=== PATIENT | male | born 1935 | race Caucasian/White ===

== ENCOUNTER 2021-08-27 18:31 | Inpatient (IN) ==
[2021-08-27 18:59] LABS: Base Excess VBG -9.7 mEq/L; Oxygen Saturation VBG 63.3 %; pH VBG 7.31 (7.36-7.41)
[2021-08-27 19:03] LABS: Basophils # (auto) 0.01 K/uL (0-0.2); Basophils % (auto) 0.1 %; Eosinophils # (auto) 0.92 K/uL (0-0.5); Eosinophils % (auto) 12.9 %; Hematocrit (blood only) 33.7 % (42-52); Hemoglobin 11.2 g/dL (14.0-18.0); Immature Granulocytes # (auto) 0.03 K/uL (0.00-0.02); Immature Granulocytes % (auto) 0.4 %; Lymphocytes # (auto) 0.47 K/uL (1.2-3.4); Lymphocytes % (auto) 6.6 %; Mean Corpuscular Hemoglobin 28.8 pg (25-34); Mean Corpuscular Hgb Conc 33.2 g/dL (32-36); Mean Corpuscular Volume 86.6 fL (80-100); Mean Platelet Volume 10.6 fL (7.4-10.4); Monocytes # (auto) 0.57 K/uL (0.11-0.59); Neutrophils # (auto) 5.13 K/uL (1.4-6.5); Nucleated RBC # (auto) 0.03 K/uL (0-0); Nucleated RBC % (auto) 0.4 %; Platelet Count 293 K/uL (130-400); RDW Coefficient of Variation 16.6 % (11.5-14.5); RDW Standard Deviation 51.9 fL (36.4-46.3); Red Blood Count 3.89 M/uL (4.7-6.1); White Blood Count 7.13 K/uL (4.8-10.8)
[2021-08-27 19:06] LABS: INR 1.1 (0.9-1.1); Partial Thromboplastin Ratio 1.2; Prothrombin Time 11.4 Seconds (9.0-12.0)
--- NOTE | 2021-08-27 19:22 | XRay Report ---
SINGLE VIEW CHEST CLINICAL HISTORY: Dyspnea. FINDINGS: An AP, portable, upright chest radiograph is obtained. No prior studies are available for c omparison at the time of dictation. The examination is degraded by portable technique and atypical lo rdotic positioning. The patient is status post midline sternotomy. The heart is enlarged noting ather osclerotic calcification of the thoracic aorta. A large right perihilar density is nonspecific. The p ulmonary vasculature is noncongested. Nonspecific interstitial thickening is likely chronic. There is bibasilar scarring/atelectasis. No airspace consolidation or large pleural effusion is identified. N o pneumothorax is seen. The skeletal structures are osteopenic. The bony thorax is grossly intact. IMPRESSION: 1. Cardiomegaly with no acute cardiopulmonary abnormality identified. 2. A large right perihilar density is nonspecific and may represent enlarged pulmonary artery. A cont rast-enhanced CT of the chest is recommended to exclude underlying lymphadenopathy or mass lesion. ACT 112: Negative or not required by law. Electronically signed by: Paco Pardo M.D. 08/27/2021 7:20 PM
[2021-08-27 19:24] LABS: Albumin Globulin Ratio 1.4 (0.9-2); Albumin Level 3.7 gm/dl (3.4-5.0); BUN Creatinine Ratio 32.7 (10-20); Bilirubin,Total 0.4 mg/dl (0.2-1.0); Calcium 8.4 mg/dl (8.5-10.1); Creatinine Clr Calc Pharmacy 19.2 ml/min; Est GFR (African American) 23.3 ml/min; Est GFR (Non-African American) 20.1 ml/min; Globulin 2.6 gm/dl (2.5-4.0); Magnesium 3.4 mg/dl (1.7-2.4); Potassium 5.2 mmol/L (3.5-5.1); Total Protein 6.3 gm/dl (6.0-8.3)
--- NOTE | 2021-08-27 19:38 | Emergency Department Note ---
History of Present Illness General Chief complaint: Carbon Monoxide Exposure Stated complaint: SOB, CO POISONING Time Seen by Provider: 08/27/21 18:37 Source: patient and EMS Mode of arrival: EMS Limitations: no limitations History of Present Illness Provider complaint: Shortness of breath This is an 86-year-old male who presents emergency department via EMS complaining of shortness of breath. Patient states he is felt weak and dizzy over the last 2 weeks and had issues with his prostate. Patient states he did have recent prostate surgery. He states today he felt short of breath compared to prior although does admit to prior episodes of shortness of breath. Denies any prior history of tobacco abuse, asthma, or COPD. States he does not wear home oxygen or use any breathing treatments. Patient denies fevers, chills, chest pain, other URI symptoms. He denies any known sick contacts. Patient states he does feel better with oxygen is applied by EMS. EMS relays when they arrived, fire personnel had informed them that there was elevated carbon monoxide in the home. Patient states he does have a coal furnace to heat the home and is still using his seat. He states his car monoxide detector did go off today and he was having a difficult time changing the batteries. Patient denies any coming headache or hallucinations. EMS placed the patient on CPAP prehospital and patient reports feeling markedly improved. Pt seen during a time of high acuity and national emergency pandemic while wearing PPE. Home Medications Medication Instructions Recorded Confirmed Type ascorbic acid (vitamin C) 1,000 mg 1 g PO DAILY #120 tab 11/24/20 08/27/21 Rx tablet aspirin 81 mg tablet,delayed 81 mg PO DAILY #30 tab 11/24/20 08/27/21 Rx release bumetanide 1 mg tablet 1 mg PO DAILY #30 tab 11/24/20 08/27/21 Rx carvedilol 12.5 mg tablet 12.5 mg PO BID #60 tab 11/24/20 08/27/21 Rx cholecalciferol (vitamin D3) 10 10 mcg PO DAILY #30 cap 11/24/20 08/27/21 Rx mcg (400 unit) capsule dutasteride 0.5 mg capsule 0.5 mg PO DAILY #30 cap 11/24/20 08/27/21 Rx ezetimibe 10 mg tablet 10 mg PO DAILY #30 tab 11/24/20 08/27/21 Rx fluocinonide 0.05 % topical cream 1 applic TOPICAL BID PRN #60 g 11/24/20 08/27/21 Rx hydralazine 100 mg tablet 100 mg PO TID #60 tab 11/24/20 08/27/21 Rx loratadine 10 mg tablet (Claritin) 10 mg PO DAILY PRN #90 tab 11/24/20 08/27/21 Rx losartan 50 mg tablet 50 mg PO BID #60 tab 11/24/20 08/27/21 Rx magnesium oxide 400 mg PO DAILY #30 cap 11/24/20 08/27/21 Rx nifedipine 60 mg tablet,extended 120 mg PO DAILY #30 tab 11/24/20 08/27/21 Rx release 24 hr (Procardia XL) nitroglycerin 0.4 mg sublingual 0.4 mg SUBLINGUAL Q5M PRN #1 tab 11/24/20 08/27/21 Rx tablet (Nitrostat) omega-3 fatty acids 1,000 mg 2,000 mg PO BID #60 cap 11/24/20 08/27/21 Rx capsule (Fish Oil Concentrate) rivaroxaban 2.5 mg tablet (Xarelto) 2.5 mg PO BID #60 tab 11/24/20 08/27/21 Rx rosuvastatin 5 mg tablet 5 mg PO DAILY #30 tab 11/24/20 08/27/21 Rx spironolactone 50 mg tablet 50 mg PO DAILY #30 tab 11/24/20 08/27/21 Rx tamsulosin 0.4 mg capsule 0.8 mg PO DAILY #30 cap 11/24/20 08/27/21 Rx triamcinolone acetonide 0.1 % 1 applic TOPICAL TID PRN #15 g 11/24/20 08/27/21 Rx topical cream vitamin B12 500 mcg-folic acid 400 1 tab PO DAILY #30 tab 11/24/20 08/27/21 Rx mcg tablet docusate sodium 100 mg capsule 100 mg PO BID 12/06/20 08/27/21 History (Colace) zinc 50 mg tablet 50 mg PO DAILY 12/06/20 08/27/21 History cyclobenzaprine 5 mg tablet 5 mg PO HS PRN 08/27/21 08/27/21 History nitroglycerin 0.4 mg/hr 1 patch TRANSDERMAL QAM MDD remove 08/27/21 08/27/21 History transdermal 24 hour patch in pm (Nitro-Dur) Allergies Allergy/AdvReac Type Severity Reaction Status Date / Time clonidine Allergy Unknown Verified 08/27/21 19:49 doxazosin [From Cardura] Allergy HIVES and Verified 08/27/21 19:49 ITCHING furosemide [From Lasix] Allergy HIVES and Verified 08/27/21 19:49 ITCHING hydrochlorothiazide Allergy ITCHING Verified 08/27/21 19:49 ketorolac [From Toradol] Allergy ACUTE Verified 08/27/21 19:49 KIDNEY INJURY potassium chloride Allergy HIVES and Verified 08/27/21 19:49 ITCHING lisinopril AdvReac COUGH Verified 08/27/21 19:49 Past Med/Surg History Medical History Carotid stenosis Diastolic CHF, chronic Hearing loss Hyperlipidemia Nephrolithiasis Osteoarthritis PAD (peripheral artery disease) Surgical History H/O endarterectomy H/O lithotripsy Hx of CABG S/P colonoscopic polypectomy S/P total knee arthroplasty left Family History Denies family history of Diabetes Kidney disease Social History Smoking Status: Never smoker Hx Alcohol Use: Yes (x15 years ago) Hx Substance Use: No Preferred Language: Togolese Communication Ability: Effective Hearing Ability: Hard of Hearing Xerox Machine Operator Required: No Beliefs That Will Affect Care: None Current Living Situation: Alone current occupational status: retired Other Information That Helps Us Care for You: No Feels Safe at Home: Yes Safety Concerns: Feels Safe At This Time Assistive Devices: Walker Review of Systems A total of 10 systems reviewed and were otherwise negative All systems reviewed & are unremarkable except as noted in HPI & below Physical Exam Vital Signs Vital Signs - 24 hr 08/27/21 18:15 08/27/21 18:38 08/27/21 19:43 Temperature 36.8 C Temperature Source Axillary Pulse Rate 66 Pulse Rate [Apical] 60 63 Respiratory Rate 18 22 20 Respiratory Effort / Characteristics Non-Labored Respiratory Depth Normal Blood Pressure 172/74 H Blood Pressure [Right Arm] 129/70 131/68 Blood Pressure Mean 106 Blood Pressure Mean [Right Arm] 89 89 Blood Pressure Position Sitting Blood Pressure Position [Right Arm] Pulse Oximetry 98 100 100 Oxygen Delivery Method Room Air BiPAP Non-rebreather Oxygen Flow Rate 15 Sepsis Recent Fever Within 48 Hours No Sepsis New/Unexplained Change in Mental Status No Sepsis Action Taken by Nursing No Action Required Oxygen Flow Rate - Titration Pulse Oximetry Post Tiitration 08/27/21 20:29 08/27/21 20:56 08/27/21 21:40 Temperature Temperature Source Pulse Rate Pulse Rate [Apical] 57 L 59 L Respiratory Rate 18 Respiratory Effort / Characteristics Respiratory Depth Blood Pressure Blood Pressure [Right Arm] 144/65 H 131/50 L Blood Pressure Mean Blood Pressure Mean [Right Arm] 91 77 Blood Pressure Position Blood Pressure Position [Right Arm] Sitting Sitting Pulse Oximetry 99 99 Oxygen Delivery Method Nasal Cannula Nasal Cannula Nasal Cannula Oxygen Flow Rate 8 4 4 Sepsis Recent Fever Within 48 Hours Sepsis New/Unexplained Change in Mental Status Sepsis Action Taken by Nursing Oxygen Flow Rate - Titration 4 Pulse Oximetry Post Tiitration 100 08/27/21 22:57 Temperature Temperature Source Pulse Rate Pulse Rate [Apical] 57 L Respiratory Rate 20 Respiratory Effort / Characteristics Respiratory Depth Blood Pressure Blood Pressure [Right Arm] 128/54 L Blood Pressure Mean Blood Pressure Mean [Right Arm] 78 Blood Pressure Position Blood Pressure Position [Right Arm] Pulse Oximetry 99 Oxygen Delivery Method Nasal Cannula Oxygen Flow Rate 2 Sepsis Recent Fever Within 48 Hours Sepsis New/Unexplained Change in Mental Status Sepsis Action Taken by Nursing Oxygen Flow Rate - Titration Pulse Oximetry Post Tiitration GENERAL: alert, well appearing, well nourished, no distress, non-toxic EYE EXAM: normal conjunctiva, PERRL and EOM's grossly intact OROPHARYNX: no exudate, no erythema, lips, buccal mucosa, and tongue normal and mucous membranes are moist NECK: supple, no nuchal rigidity, no adenopathy, non-tender LUNGS: Clear to auscultation. Normal chest wall mechanics, no w/r/r HEART: no murmurs, S1 normal and S2 normal ABDOMEN: abdomen soft, non-tender, normo-active bowel sounds, no masses, no rebound or guarding. BACK: Back is symmetrical on inspection and there is no deformity, no midline tenderness, no CVA tenderness. SKIN: no rashes and no bruising UPPER EXTREMITIES: upper extremities are grossly normal. FROM, nml pulses b/l. LOWER EXTREMITIES: 1+ b/l pitting edema. FROM, nml pulses b/l. NEURO EXAM: Normal sensorium, cranial nerves II-XII grossly intact, normal speech, no gross weakness of arms, no gross weakness of legs. Gross sensation intact. Course Course 1934: Discussed with Faith pt's niece. [phone]. She states patient had prostate surgery at [facility] 2 weeks ago. He had 2 catheters in the intervening days the last one was removed this past Saturday. He was also having some left-sided shoulder pain and was referred to orthopedics and on Saturday he underwent a trigger point injection and was referred to physical therapy. Patient sees cardiology through [facility] and his PCP is Panchito Anguiano PA-C. She states he has had decreased oral intake over the last several days and seems slightly more sluggish. He states he has complained of shortness of breath and that was his original complaint today for which she called family who called 911. He states patient has history of chronic kidney disease stage III, acute on chronic CHF, prior CABG and coronary artery disease, hypertension, hyperlipidemia, peripheral vascular disease, anemia, gastritis, or osteoarthri tis. She does not know of any advanced directive or living will. She states her did go to his house to evaluate the report of possible elevated carbon monoxide and check his furnace and ventilation. 2015: Pt updated on bedside. States he has been intermittently SOB for the last 2 weeks. Administered Medications Acetaminophen (Acetaminophen 325 Mg Tab) 650 mg PO Q4H PRN PRN Reason: Pain or Fever Stop: 09/27/21 01:34 Last Admin: 08/29/21 01:47 Dose: 650 mg Documented by: [id number] Admin: 08/28/21 09:17 Dose: 650 mg Documented by: [id number] Admin: 08/28/21 02:39 Dose: 650 mg Documented by: [id number] Ascorbic Acid (Ascorbic Acid 500 Mg Tab) 1,000 mg PO DAILY KAREN Stop: 09/27/21 08:59 Last Admin: 08/29/21 08:41 Dose: 1,000 mg Documented by: [id number] Admin: 08/28/21 08:50 Dose: 1,000 mg Documented by: [id number] Aspirin (Aspirin 81 Mg Ectab) 81 mg PO DAILY KAREN Stop: 09/27/21 08:59 Last Admin: 08/29/21 08:43 Dose: 81 mg Documented by: [id number] Admin: 08/28/21 08:49 Dose: 81 mg Documented by: [id number] Carvedilol (Carvedilol 12.5 Mg Tab) 12.5 mg PO BID KAREN Stop: 09/27/21 08:59 Last Admin: 08/29/21 08:52 Dose: 12.5 mg Documented by: [id number] Admin: 08/28/21 20:47 Dose: Not Given Documented by: [id number] Admin: 08/28/21 08:49 Dose: 12.5 mg Documented by: [id number] Cyanocobalamin (Cyanocobalamin (B-12) 500 Mcg Tablet) 500 mcg PO DAILY KAREN Stop: 09/27/21 08:59 Last Admin: 08/29/21 08:44 Dose: 500 mcg Documented by: [id number] Admin: 08/28/21 08:56 Dose: 500 mcg Documented by: [id number] Cyclobenzaprine HCl (Cyclobenzaprine Hcl 5 Mg Tab) 5 mg PO HS PRN PRN Reason: back or shoulder pain Stop: 09/27/21 01:34 Last Admin: 08/28/21 04:29 Dose: 5 mg Documented by: [id number] Docusate Sodium (Docusate Sodium 100 Mg Cap) 100 mg PO BID [facility] Stop: 09/27/21 08:59 Last Admin: 08/29/21 08:39 Dose: 100 mg Documented by: [id number] Admin: 08/28/21 20:46 Dose: 100 mg Documented by: [id number] Admin: 08/28/21 08:50 Dose: 100 mg Documented by: [id number] Ezetimibe (Ezetimibe 10 Mg Tablet) 10 mg PO DAILY [facility] Stop: 09/27/21 08:59 Last Admin: 08/29/21 08:44 Dose: 10 mg Documented by: [id number] Admin: 08/28/21 08:50 Dose: 10 mg Documented by: [id number] Folic Acid (Folic Acid 400 Mcg Tab) 400 mcg PO QAM [facility] Stop: 09/27/21 08:59 Last Admin: 08/29/21 08:43 Dose: 400 mcg Documented by: [id number] Admin: 08/28/21 08:51 Dose: 400 mcg Documented by: [id number] Miscellaneous (Dutasteride 0.5 Mg - Order Awaiting Action) 1 ea N/A QS [facility] Stop: 09/27/21 07:59 Last Admin: 08/29/21 16:41 Dose: Not Given Documented by: [id number] Admin: 08/29/21 08:50 Dose: Not Given Documented by: [id number] Admin: 08/29/21 02:44 Dose: Not Given Documented by: [id number] Admin: 08/28/21 15:35 Dose: Not Given Documented by: [id number] Admin: 08/28/21 08:51 Dose: Not Given Documented by: [id number] Miscellaneous (Remove Nitro-Dur Patch) 1 ea N/A DAILY@2100 [facility] Stop: 09/27/21 20:59 Last Admin: 08/28/21 20:46 Dose: 1 ea Documented by: [id number] Nifedipine (Nifedipine Extended Rel 30 Mg Tabcr) 120 mg PO DAILY [facility] Stop: 09/27/21 08:59 Last Admin: 08/29/21 08:52 Dose: 120 mg Documented by: [id number] Admin: 08/28/21 08:46 Dose: 120 mg Documented by: [id number] Nitroglycerin (Nitroglycerin 0.4 Mg/Hr Patch) 1 patch TD QAM [facility] Stop: 09/27/21 08:59 Last Admin: 08/29/21 08:52 Dose: 1 patch Documented by: [id number] Admin: 08/28/21 08:57 Dose: 1 patch Documented by: [id number] Rosuvastatin Calcium (Rosuvastatin Calcium 5 Mg Tab) 5 mg PO DAILY KAREN Stop: 09/27/21 08:59 Last Admin: 08/29/21 08:40 Dose: 5 mg Documented by: [id number] Admin: 08/28/21 08:48 Dose: 5 mg Documented by: [id number] Sodium Bicarbonate (Sodium Bicarbonate 650 Mg Tab) 1,300 mg PO BID KAREN Stop: 09/27/21 09:59 Last Admin: 08/29/21 08:40 Dose: 1,300 mg Documented by: [id number] Admin: 08/28/21 20:45 Dose: 1,300 mg Documented by: [id number] Admin: 08/28/21 10:44 Dose: 1,300 mg Documented by: [id number] Tamsulosin HCl (Tamsulosin Hcl 0.4 Mg Cap) 0.8 mg PO DAILY [facility] Stop: 09/27/21 08:59 Last Admin: 08/29/21 08:44 Dose: 0.8 mg Documented by: [id number] Admin: 08/28/21 08:53 Dose: 0.8 mg Documented by: [id number] Vitamin D (Cholecalciferol 400 Units 10 Mcg Tab) 400 units PO DAILY [facility] Stop: 09/27/21 08:59 Last Admin: 08/29/21 08:42 Dose: 400 units Documented by: [id number] Admin: 08/28/21 08:50 Dose: 400 units Documented by: [id number] Zinc Sulfate (Zinc Sulfate 220 Mg Capsule) 220 mg PO DAILY [facility] Stop: 09/27/21 08:59 Last Admin: 08/29/21 08:41 Dose: 220 mg Documented by: [id number] Admin: 08/28/21 08:53 Dose: 220 mg Documented by: [id number] Discontinued Medications Heparin Sodium/Dextrose (Heparin Iv Adult Wt-Based Standard *No* Bolus Protocol) 1 ea IV Q30M [facility]; Protocol Stop: 09/28/21 10:54 Last Admin: 08/29/21 14:32 Dose: Not Given Documented by: [id number] Admin: 08/29/21 14:31 Dose: Not Given Documented by: [id number] Hydralazine HCl (Hydralazine Tab 50 Mg Tab) 100 mg PO TID [facility] Stop: 09/27/21 08:59 Last Admin: 08/29/21 14:32 Dose: Not Given Documented by: [id number] Admin: 08/29/21 08:53 Dose: 100 mg Documented by: [id number] Admin: 08/28/21 20:46 Dose: 100 mg Documented by: [id number] Admin: 08/28/21 14:01 Dose: 100 mg Documented by: [id number] Admin: 08/28/21 08:56 Dose: 100 mg Documented by: [id number] Sodium Chloride (Nss 1000ml) 1,000 mls @ 75 mls/hr IV .[id number] [facility] Stop: 09/27/21 01:34 Last Infusion: 08/28/21 10:35 Dose: 0 mls/hr Documented by: [id number] Infusion: 08/28/21 10:35 Dose: 0 mls/hr Documented by: [id number] Admin: 08/28/21 02:39 Dose: 75 mls/hr Documented by: [id number] Bumetanide 1 mg/ Syringe 4 mls @ 4 mls/min IV ONE ONE Stop: 08/28/21 15:31 Last Admin: 08/28/21 15:33 Dose: 4 mls/min Documented by: [id number] Bumetanide 1 mg/ Syringe 4 mls @ 4 mls/min IV ONE ONE Stop: 08/29/21 10:01 Last Admin: 08/29/21 10:24 Dose: 4 mls/min Documented by: [id number] Rivaroxaban (Rivaroxaban 2.5 Mg Tab) 2.5 mg PO BID KAREN Stop: 09/27/21 08:59 Last Admin: 08/29/21 08:40 Dose: 2.5 mg Documented by: [id number] Admin: 08/28/21 20:46 Dose: 2.5 mg Documented by: [id number] Admin: 08/28/21 08:54 Dose: 2.5 mg Documented by: [id number] Medical Decision Making Differential Diagnosis Differential diagnoses includes but is not limited to pneumonia, bronchitis, COPD/Asthma exacerbation, pneumothorax, pulmonary embolism, congestive heart failure, acute coronary syndrome Medical Records Attestation: I reviewed the patient's medical records. Home Medications Current Medication List: was personally reviewed by me Laboratory Data Attestation: I reviewed the patient's lab results. Result diagrams: 08/29/21 07:26 08/29/21 07:26 Lab Results 08/27/21 08/27/21 08/27/21 Range/Units 18:42 18:42 18:42 WBC (4.8-10.8) K/uL RBC (4.7-6.1) M/uL Hgb (14.0-18.0) g/dL Hct (42-52) % MCV (80-100) fL MCH (25-34) pg MCHC (32-36) g/dL RDW Std Deviation (36.4-46.3) fL RDW Coeff of Dmitriy (11.5-14.5) % Plt Count (130-400) K/uL MPV (7.4-10.4) fL Immature Gran % (Auto) % Neut % (Auto) % Lymph % (Auto) % [place] % (Auto) % Eos % (Auto) % Baso % (Auto) % Neut # (Auto) (1.4-6.5) K/uL Lymph # (Auto) (1.2-3.4) K/uL [place] # (Auto) (0.11-0.59) K/uL Eos # (Auto) (0-0.5) K/uL Baso # (Auto) (0-0.2) K/uL Immature Gran # (Auto) (0.00-0.02) K/uL Absolute Nucleated RBC (0-0) K/uL Nucleated RBC % (auto) % PT 11.4 (9.0-12.0) Seconds INR 1.1 (0.9-1.1) APTT 33.0 H (21.0-31.0) Seconds PTT Ratio 1.2 ABG pH (7.35-7.45) ABG pCO2 (35-46) mmHg ABG pO2 (80-95) mmHg ABG HCO3 (19-24) mmol/L ABG O2 Saturation (90-95) % ABG Base Excess (-9-1.8) mEq/L Spenser Test (Pos) VBG pH (7.36-7.41) VBG pCO2 (38-50) mmHg VBG pO2 mmHg VBG HCO3 mmol/L VBG O2 Saturation % VBG Base Excess mEq/L Carboxyhemoglobin % THgb Barometric Pressure mm/Hg Oxygen Given Sodium 129 L (136-145) mmol/L Potassium 5.2 H (3.5-5.1) mmol/L Chloride 102 (98-107) mmol/L Carbon Dioxide 14 L (21-32) mmol/L Anion Gap 13 H (3-11) BUN 90 H (6-23) mg/dl Creatinine 2.75 H (0.6-1.4) mg/dl Est Cr Clr Drug Dosing 19.2 ml/min Est GFR ( Amer) 23.3 ml/min Est GFR (Non-Af Amer) 20.1 ml/min BUN/Creatinine Ratio 32.7 H (10-20) Glucose 113 H (70-99(Fasting)) mg/dl Calcium 8.4 L (8.5-10.1) mg/dl Magnesium 3.4 H (1.7-2.4) mg/dl Total Bilirubin 0.4 (0.2-1.0) mg/dl AST 35 (13-39) U/L ALT 141 H (7-52) U/L Alkaline Phosphatase 56 (34-104) U/L Troponin I High Sens 2093.7 H* (0-20) pg/ml Total Protein 6.3 (6.0-8.3) gm/dl Albumin 3.7 (3.4-5.0) gm/dl Globulin 2.6 (2.5-4.0) gm/dl Albumin/Globulin Ratio 1.4 (0.9-2) Urine Color Urine Appearance (Clear) Urine pH (4.5-7.5) Ur Specific [place] (1.000-1.030) Urine Protein (Negative) Urine Glucose (UA) (Negative) Urine Ketones (Negative) Urine Blood (Negative) Urine Nitrite (Negative) Urine Bilirubin (Negative) Urine Urobilinogen (Negative) Ur Leukocyte Esterase (Negative) Urine WBC (Auto) (0-5) /hpf Urine RBC (Auto) (0-4) /hpf U Hyaline Cast (Auto) (0-5) /lpf U Epithel Cells (Auto) (0-5) /lpf Urine Bacteria (Auto) (Negative) SARS-CoV-2 (PCR) (Negative) Influenza Type A (PCR) (Neg) Influenza Type B (PCR) (Neg) RSV (RT-PCR) (Neg) 08/27/21 08/27/21 08/27/21 Range/Units 18:42 18:42 18:45 WBC 7.13 (4.8-10.8) K/uL RBC 3.89 L (4.7-6.1) M/uL Hgb 11.2 L (14.0-18.0) g/dL Hct 33.7 L (42-52) % MCV 86.6 (80-100) fL MCH 28.8 (25-34) pg MCHC 33.2 (32-36) g/dL RDW Std Deviation 51.9 H (36.4-46.3) fL RDW Coeff of Dmitriy 16.6 H (11.5-14.5) % Plt Count 293 (130-400) K/uL MPV 10.6 H (7.4-10.4) fL Immature Gran % (Auto) 0.4 % Neut % (Auto) 72.0 % Lymph % (Auto) 6.6 % [place] % (Auto) 8.0 % Eos % (Auto) 12.9 % Baso % (Auto) 0.1 % Neut # (Auto) 5.13 (1.4-6.5) K/uL Lymph # (Auto) 0.47 L (1.2-3.4) K/uL [place] # (Auto) 0.57 (0.11-0.59) K/uL Eos # (Auto) 0.92 H (0-0.5) K/uL Baso # (Auto) 0.01 (0-0.2) K/uL Immature Gran # (Auto) 0.03 H (0.00-0.02) K/uL Absolute Nucleated RBC 0.03 H (0-0) K/uL Nucleated RBC % (auto) 0.4 % PT (9.0-12.0) Seconds INR (0.9-1.1) APTT (21.0-31.0) Seconds PTT Ratio ABG pH (7.35-7.45) ABG pCO2 (35-46) mmHg ABG pO2 (80-95) mmHg ABG HCO3 (19-24) mmol/L ABG O2 Saturation (90-95) % ABG Base Excess (-9-1.8) mEq/L Spenser Test (Pos) VBG pH 7.31 L (7.36-7.41) VBG pCO2 31 L (38-50) mmHg VBG pO2 36 mmHg VBG HCO3 15 mmol/L VBG O2 Saturation 63.3 % VBG Base Excess -9.7 mEq/L Carboxyhemoglobin 2.9 % THgb Barometric Pressure 731.2 mm/Hg Oxygen Given Sodium (136-145) mmol/L Potassium (3.5-5.1) mmol/L Chloride (98-107) mmol/L Carbon Dioxide (21-32) mmol/L Anion Gap (3-11) BUN (6-23) mg/dl Creatinine (0.6-1.4) mg/dl Est Cr Clr Drug Dosing ml/min Est GFR ( Amer) ml/min Est GFR (Non-Af Amer) ml/min BUN/Creatinine Ratio (10-20) Glucose (70-99(Fasting)) mg/dl Calcium (8.5-10.1) mg/dl Magnesium (1.7-2.4) mg/dl Total Bilirubin (0.2-1.0) mg/dl AST (13-39) U/L ALT (7-52) U/L Alkaline Phosphatase (34-104) U/L Troponin I High Sens (0-20) pg/ml Total Protein (6.0-8.3) gm/dl Albumin (3.4-5.0) gm/dl Globulin (2.5-4.0) gm/dl Albumin/Globulin Ratio (0.9-2) Urine Color Urine Appearance (Clear) Urine pH (4.5-7.5) Ur Specific [place] (1.000-1.030) Urine Protein (Negative) Urine Glucose (UA) (Negative) Urine Ketones (Negative) Urine Blood (Negative) Urine Nitrite (Negative) Urine Bilirubin (Negative) Urine Urobilinogen (Negative) Ur Leukocyte Esterase (Negative) Urine WBC (Auto) (0-5) /hpf Urine RBC (Auto) (0-4) /hpf U Hyaline Cast (Auto) (0-5) /lpf U Epithel Cells (Auto) (0-5) /lpf Urine Bacteria (Auto) (Negative) SARS-CoV-2 (PCR) (Negative) Influenza Type A (PCR) (Neg) Influenza Type B (PCR) (Neg) RSV (RT-PCR) (Neg) 08/27/21 08/27/21 08/27/21 Range/Units 20:10 21:48 21:53 WBC (4.8-10.8) K/uL RBC (4.7-6.1) M/uL Hgb (14.0-18.0) g/dL Hct (42-52) % MCV (80-100) fL MCH (25-34) pg MCHC (32-36) g/dL RDW Std Deviation (36.4-46.3) fL RDW Coeff of Dmitriy (11.5-14.5) % Plt Count (130-400) K/uL MPV (7.4-10.4) fL Immature Gran % (Auto) % Neut % (Auto) % Lymph % (Auto) % [place] % (Auto) % Eos % (Auto) % Baso % (Auto) % Neut # (Auto) (1.4-6.5) K/uL Lymph # (Auto) (1.2-3.4) K/uL [place] # (Auto) (0.11-0.59) K/uL Eos # (Auto) (0-0.5) K/uL Baso # (Auto) (0-0.2) K/uL Immature Gran # (Auto) (0.00-0.02) K/uL Absolute Nucleated RBC (0-0) K/uL Nucleated RBC % (auto) % PT (9.0-12.0) Seconds INR (0.9-1.1) APTT (21.0-31.0) Seconds PTT Ratio ABG pH 7.36 (7.35-7.45) ABG pCO2 27 L (35-46) mmHg ABG pO2 277 H (80-95) mmHg ABG HCO3 15 L (19-24) mmol/L ABG O2 Saturation 99.8 H (90-95) % ABG Base Excess -9.2 L (-9-1.8) mEq/L Spenser Test Pos (Pos) VBG pH (7.36-7.41) VBG pCO2 (38-50) mmHg VBG pO2 mmHg VBG HCO3 mmol/L VBG O2 Saturation % VBG Base Excess mEq/L Carboxyhemoglobin % THgb Barometric Pressure 731.2 mm/Hg Oxygen Given 15 Sodium (136-145) mmol/L Potassium (3.5-5.1) mmol/L Chloride (98-107) mmol/L Carbon Dioxide (21-32) mmol/L Anion Gap (3-11) BUN (6-23) mg/dl Creatinine (0.6-1.4) mg/dl Est Cr Clr Drug Dosing ml/min Est GFR ( Amer) ml/min Est GFR (Non-Af Amer) ml/min BUN/Creatinine Ratio (10-20) Glucose (70-99(Fasting)) mg/dl Calcium (8.5-10.1) mg/dl Magnesium (1.7-2.4) mg/dl Total Bilirubin (0.2-1.0) mg/dl AST (13-39) U/L ALT (7-52) U/L Alkaline Phosphatase (34-104) U/L Troponin I High Sens (0-20) pg/ml Total Protein (6.0-8.3) gm/dl Albumin (3.4-5.0) gm/dl Globulin (2.5-4.0) gm/dl Albumin/Globulin Ratio (0.9-2) Urine Color Yellow Urine Appearance Clear (Clear) Urine pH 5.0 (4.5-7.5) Ur Specific [place] 1.018 (1.000-1.030) Urine Protein Negative (Negative) Urine Glucose (UA) Negative (Negative) Urine Ketones Negative (Negative) Urine Blood 1+ H (Negative) Urine Nitrite Negative (Negative) Urine Bilirubin Negative (Negative) Urine Urobilinogen Negative (Negative) Ur Leukocyte Esterase Negative (Negative) Urine WBC (Auto) 0 (0-5) /hpf Urine RBC (Auto) >30 H (0-4) /hpf U Hyaline Cast (Auto) 1-5 (0-5) /lpf U Epithel Cells (Auto) 0-5 (0-5) /lpf Urine Bacteria (Auto) Negative (Negative) SARS-CoV-2 (PCR) NEGATIVE (Negative) Influenza Type A (PCR) Negative (Neg) Influenza Type B (PCR) Negative (Neg) RSV (RT-PCR) Negative (Neg) Imaging Data Radiologist's Impression: Chest X-Ray 08/27/21 18:36 SINGLE VIEW CHEST CLINICAL HISTORY: Dyspnea. FINDINGS: An AP, portable, upright chest radiograph is obtained. No prior studies are available for comparison at the time of dictation. The examination is degraded by portable technique and atypical lordotic positioning. The patient is status post midline sternotomy. The heart is enlarged noting atherosclerotic calcification of the thoracic aorta. A large right perihilar density is nonspecific. The pulmonary vasculature is noncongested. Nonspecific interstitial thickening is likely chronic. There is bibasilar scarring/atelectasis. No airspace consolidation or large pleural effusion is identified. No pneumothorax is seen. The skeletal structures are osteopenic. The bony thorax is grossly i ntact. IMPRESSION: 1. Cardiomegaly with no acute cardiopulmonary abnormality identified. 2. A large right perihilar density is nonspecific and may represent enlarged pulmonary artery. A contrast-enhanced CT of the chest is recommended to exclude underlying lymphadenopathy or mass lesion. ACT 112: Negative or not required by law. Electronically signed by: Paco Pardo M.D. 08/27/2021 7:20 PM ECG Data Attestation: I personally reviewed and interpreted this ECG as follows: Indication: + SOB/dyspnea Rate (beats per minute): 64 Rhythm: + normal sinus ECG Intervals/blocks: + Normal QRS and + Normal QT ECG Temperance: + Normal ECG ST segments: + Nonspecific ST abnormalities MDM Narrative This is an 86 yo male brought in by ems with complaints of dyspnea and possible CO poisoning. Patient was placed on cpap by EMS and reported feeling improved on arrival and was quickly transitioned to NRB with continued improvement. He denied pain. Admits to recent trouble with urination from prostate surgery and lightheadedness. I spent significant time discussing his PMHx and recent events with pt's niece, who helps with his care. VS stable. Labs sent including initial carboxy and VBG which were reassuring. I do not strongly suspect patient had CO poisoning as was initially thought. Patient continued to be well appearing. Significant cardiac hx and CHF. Karlie on CKD. No overt CHF clinically. No pna. No c/o chest pain. No old EKG to compare to despite attempts at obtaining outside records. Unclear if troponin related to NSTEMI or due to renal dysfunction. Discussed results with patient and he verbalized understanding. Discussed with hospitalist. An order was placed for continuous cardiac monitoring. The monitor shows a rate of _66__ with __normal sinus__ rhythm. Impression & Plan Dyspnea, Chronic kidney disease, KARLIE (acute kidney injury), Elevated troponin Discharge Plan Visit Data Chief Complaint: Carbon Monoxide Exposure Stated Complaint: SOB, CO POISONING ED Provider: Claudia Damon Discharge Problem: Dyspnea, Chronic kidney disease, KARLIE (acute kidney injury), Elevated troponin Patient Disposition: Admitted As Inpatient Discharge Instructions Interventions: ED Discharge Assessment Last Done: 08/28/21 01:01 Discharge Problem: Dyspnea Qualifiers: Dyspnea type: shortness of breath Qualified Code(s): R06.02 - Shortness of breath Chronic kidney disease Qualifiers: Chronic kidney disease stage: unspecified stage Qualified Code(s): N18.9 - Chronic kidney disease, unspecified
[2021-08-27 20:21] LABS: Base Excess ABG -9.2 mEq/L (-9-1.8); HCO3 ABG 15 mmol/L (19-24); Oxygen Saturation ABG 99.8 % (90-95); PCO2 ABG 27 mmHg (35-46); PO2 ABG 277 mmHg (80-95); pH ABG 7.36 (7.35-7.45)
[2021-08-27 20:34] LABS: Allen Test Pos (Pos)
[2021-08-27 22:24] LABS: Appearance Urine Clear (Clear); Bacteria Urine Automated Negative (Negative); Bilirubin Urine Negative (Negative); Blood Urine 1+ (Negative); Color Urine Yellow; Epithelial Cell Urine Auto 0-5 /lpf (0-5); Glucose Urine UA Negative (Negative); Ketones Urine Negative (Negative); Leukocyte Esterase Urine Negative (Negative); Nitrite Urine Negative (Negative); Protein Urine Negative (Negative); RBC Urine Automated >30 /hpf (0-4); Specific Gravity Urine 1.018 (1.000-1.030); Urobilinogen Urine Negative (Negative); WBC Urine Automated 0 /hpf (0-5)
[2021-08-27 22:35] LABS: Influenza A virus by PCR Negative (Neg); Influenza B virus by PCR Negative (Neg); RSV by PCR Negative (Neg); SARS CoV2 RNA(COVID-19) InHosp NEGATIVE (Negative)
[2021-08-28] MEDS ORDERED: POLYETHYLENE (MIRALAX) 17 GM PACK PO PRN (01:35)
[2021-08-28] MEDS ORDERED: LORATADINE 10 MG TAB PO PRN (01:35)
[2021-08-28] MEDS ORDERED: TRIAMCINOLONE ACET 0.1% CR 15 GM TUBE TOP PRN (01:35)
[2021-08-28] MEDS ORDERED: SODIUM CHLORIDE 0.9% 1000ML 1,000 ML IV SCH (01:35)
[2021-08-28] MEDS ORDERED: NITROGLYCERIN SL 0.4 MG/TAB TAB SL PRN ×2 (01:35)
[2021-08-28] MEDS ORDERED: FLUOCINONIDE 0.05% CR 15 GM TUBE EXT PRN (01:35)
[2021-08-28] MEDS: ACETAMINOPHEN 325 MG TAB PO PRN ×2 (02:39→09:17)
[2021-08-28] MEDS: CYCLOBENZAPRINE HCL 5 MG TAB PO PRN (04:29)
--- NOTE | 2021-08-28 04:53 | History and Physical Report ---
CHIEF COMPLAINT: Shortness of breath. HISTORY OF PRESENT ILLNESS: An 86-year-old male with past medical history significant for chronic diastolic CHF, chronic kidney disease stage III, baseline creatinine 1.8 to 2.0,, BPH, history of kidney stones, history of carotid stenosis, status post bilateral endarterectomy; CAD s/p CABG performed at [facility] 1995; hypertension, hyperlipidemia, peripheral vascular disease, impaired fasting glucose, anemia, conduction disorder of the heart, pernicious anemia, gastritis, osteoarthritis, presents with shortness of breath. The patient lives alone at home. Nephew takes care of him. The patient complained of shortness of breath today, patient says about 6-8 hours. He called his neighbor who called EMS. When the EMS arrived, his carbon monoxide alarm was going on. They checked on their machine and carbon monoxide levels seemed high. The patient says he has a coal stove at home to keep him warm .EMS placed him on CPAP and brought him here. The patient is currently resting comfortably, hemodynamically stable. The patient does not have any headache or dizziness. No chest pain. Carboxyhemoglobin and ABG was okay. As per the nephew, patient has had a prostate procedure done about 2-1/2 weeks ago in [place] for urinary retention.. Since then they had to replace the catheter for 3 times and one time he pulled it out and since then he was not feeling well and he complained of severe upper back pain, saw orthopedics and they gave some lidocaine shot to his back in the upper back . Since the prostrate procedure he is feeling weak and poor appetite, not doing good at home lately. Here in the hospital, the patient says, last one week he is eating only pudding and cereals at home. He states he is feeling weak, probably some difficulty swallowing, could not get a clear answer from him. Denies any headache currently. No dizziness, no blurred visions, no runny nose, no sore throat, no cough, no fevers, no chest pain. Currently no shortness of breath and feeling better. No nausea, no abdominal pain. Normal bowel and bladder movements. Has swelling of the legs. He is ambulating with a walker at home. Hemodynamics are stable. ALLERGIES: CLONIDINE, DOXAZOSIN, FUROSEMIDE, HYDROCHLOROTHIAZIDE, TORADOL, POTASSIUM CHLORIDE, LISINOPRIL. PAST MEDICAL HISTORY: As mentioned above. PAST SURGICAL HISTORY: CABG, bilateral carotid endarterectomy, lithotripsies, colonoscopy, left and right TKR, left TKR, EGDs, laryngoscopy, cardiac catheterization. FAMILY HISTORY: Significant for mother had cancer, Brother and sister has heart disease. SOCIAL HISTORY: Lives alone, has one pet dog. 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 No smoking history. Currently, no alcohol. REVIEW OF SYSTEMS: As per HPI. Rest of review of systems is negative. MEDICATIONS: The patient is on vitamin C 1 gram p.o. daily, aspirin 81 mg p.o. daily, Bumex 1 mg p.o. daily, Coreg 12.5 mg p.o. b.i.d., vitamin D 10 mcg p.o. daily, cyclobenzaprine 5 mg p.o. at bedtime p.r.n., Colace 100 mg p.o. b.i.d., dutasteride 0.5 mg p.o. daily, ezetimibe 10 mg p.o. daily, hydralazine 100 mg p.o. t.i.d., lortadine 10 mg p.o. daily p.r.n., losartan 50 mg p.o. b.i.d., magnesium oxide 400 mg p.o. daily, nifedipine 120 mg extended release daily, nitroglycerin 0.4 mg sublingual p.r.n., nitropatch daily, [place] fish oil 2 g p.o. b.i.d., rivaroxaban 2.5 mg p.o. b.i.d.,rosuvastatin 5 mg p.o. daily, spironolactone 50 mg p.o. daily, Flomax 0.8 mg p.o. daily, vitamin B12 plus folic acid 1 tablet daily, zinc 50 mg p.o. daily. PHYSICAL EXAMINATION: GENERAL: The patient is alert and oriented. VITAL SIGNS: Temperature 36.8, pulse 57, respiratory rate 20, blood pressure 128/54, oxygen 99% on 2 liters. HEENT: Pupils equal, round and reactive to light. Oral mucosa moist. NECK: No JVD, no neck masses. CARDIOVASCULAR: S1 and S2 heard. Regular rate and rhythm. No murmur, no gallop. RESPIRATORY SYSTEM: Normal AP diameter. No Accessory muscle use, No wheezing or crackles. ABDOMEN: Soft, bowel sounds present, nontender, no distention. CENTRAL NERVOUS SYSTEM: Cranial nerves 2-12 grossly intact, nonfocal. EXTREMITIES: Bilateral lower extremity, +2 edema present with no obvious erythema seen. LABORATORY DATA: WBC 7.1, hemoglobin 11.2, hematocrit 33.7, platelets 293. PT 11.4, INR 1.1, APTT 33. ABG, pH of 7.36, pCO2 of 27, pO2 of 277, bicarbonate 15, oxygen 99%. Carboxyhemoglobin 2.9%. Sodium 129, potassium 5.2, chloride 102, CO2 of 14, BUN 20, creatinine 2.75, serum glucose 113, calcium 8.4, magnesium 3.4, total bilirubin 0.4, AST 35, [id number], alkaline phosphatase 56. Troponin 2093. Urinalysis negative. SARS-CoV-2 PCR negative. Influenza A and B PCR negative. RSV PCR negative. IMAGING DATA: Chest x-ray: Cardiomegaly with no acute cardiopulmonary abnormalities. Enlarged right perihilar densities nonspecific, may represent enlarged pulmonary artery, and CT of the chest with contrast is recommended to exclude underlying lymphadenopathy and mass lesion. ASSESSMENT AND PLAN: 1. This is an 86-year-old male who presents with shortness of breath The patient has coal stove at home and his CO alarm was going on, but his carboxyhemoglobin is okay. Currently, he is feeling better. Denies any shortness of breath. Chest x-ray was okay. The patient has history of diastolic congestive heart failure, has lower extremity edema, on Bumex at home. We will monitor in the hospital in [facility]. We will get an echocardiogram. Continue oxygenation for now. 2. Acute kidney injury, on chronic kidney disease stage III. Baseline creatinine around 1.8 to 2.0. Today creatinine of 2.7 and also metabolic acidosis. Holding losartan, Bumex, and spironolactone. Doing gentle fluids. We will follow the repeat labs in the a.m., consult nephrology in the a.m. 3. Hyponatremia and hyperkalemia. Getting gentle fluids. Holding the Bumex Aldactone and losartan.. We will follow the repeat labs in the a.m. 4. Troponin high sensitivity elevation. The patient denies any chest pain. We will follow serial CE and echocardiogram. Consult cardiology in the a.m. 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 5. History of coronary artery disease, status post CABG. Continue his home medication of aspirin, Coreg, nitropatch, rosuvastatin 6. History of benign prostatic hypertrophy. Seems to have recently had prostate procedure. On Flomax. Monitor for any urinary retention. 7. Hypertension, on Coreg, hydralazine. nifedipine, nitropatch. Holding losartan, spironolactone, and Bumex. We will monitor his blood pressure. 8. Hyperlipidemia, on statin. 9. Peripheral vascular disease: On aspirin, statin. Needs to get records from his primary doctor and Cardiology office, not sure why the patient is on Xarelto. 10. Deep venous thrombosis prophylaxis: On Xarelto. DISPOSITION: Closely monitor in med tele. PT/OT prior discharge. Social service to help with discharge planning. The make sure home is safe for discharge as there was question of CO levels been high at home.. Level 1 full code as per my discussion with the patient. Job ID: [id number] [facility]
[2021-08-28 06:19] LABS: Basophils # (auto) 0.01 K/uL (0-0.2); Basophils % (auto) 0.1 %; Eosinophils # (auto) 1.16 K/uL (0-0.5); Eosinophils % (auto) 15.4 %; Hemoglobin 10.3 g/dL (14.0-18.0); Immature Granulocytes # (auto) 0.02 K/uL (0.00-0.02); Immature Granulocytes % (auto) 0.3 %; Lymphocytes # (auto) 0.68 K/uL (1.2-3.4); Mean Corpuscular Hemoglobin 29.1 pg (25-34); Mean Corpuscular Hgb Conc 33.2 g/dL (32-36); Mean Corpuscular Volume 87.6 fL (80-100); Mean Platelet Volume 10.3 fL (7.4-10.4); Monocytes # (auto) 0.57 K/uL (0.11-0.59); Monocytes % (auto) 7.6 %; Neutrophils # (auto) 5.08 K/uL (1.4-6.5); Neutrophils % (auto) 67.6 %; Platelet Count 267 K/uL (130-400); RDW Coefficient of Variation 16.7 % (11.5-14.5); RDW Standard Deviation 53.1 fL (36.4-46.3); Red Blood Count 3.54 M/uL (4.7-6.1); White Blood Count 7.52 K/uL (4.8-10.8)
[2021-08-28 06:34] LABS: BUN Creatinine Ratio 34.8 (10-20); Calcium 8.1 mg/dl (8.5-10.1); Creatinine Clr Calc Pharmacy 22.3 ml/min; Est GFR (African American) 26.2 ml/min; Est GFR (Non-African American) 22.6 ml/min; Magnesium 3.2 mg/dl (1.7-2.4); Potassium 5.2 mmol/L (3.5-5.1)
[2021-08-28 06:39] LABS: Troponin I High Sensitivity 1947.7 pg/ml (0-20)
[2021-08-28] MEDS: NIFEdipine EXTENDED REL 30 MG TABCR PO SCH (08:46)
[2021-08-28] MEDS: ROSUVASTATIN CALCIUM 5 MG TAB PO SCH (08:48)
[2021-08-28] MEDS: carvediloL 12.5 MG TAB PO SCH ×2 (08:49→20:47)
[2021-08-28] MEDS: ASPIRIN 81 MG ECTAB PO SCH (08:49)
[2021-08-28] MEDS: DOCUSATE SODIUM 100 MG CAP PO SCH ×2 (08:50→20:46)
[2021-08-28] MEDS: EZETIMIBE 10 MG TABLET PO SCH (08:50)
[2021-08-28] MEDS: ASCORBIC ACID 500 MG TAB PO SCH (08:50)
[2021-08-28] MEDS: CHOLECALCIFEROL 400 UNITS 10 MCG TAB PO SCH (08:50)
[2021-08-28] MEDS: FOLIC ACID 400 MCG TAB PO SCH (08:51)
[2021-08-28] MEDS: ZINC SULFATE 220 MG CAPSULE PO SCH (08:53)
[2021-08-28] MEDS: TAMSULOSIN HCL 0.4 MG CAP PO SCH (08:53)
[2021-08-28] MEDS: RIVAROXABAN 2.5 MG TAB PO SCH ×2 (08:54→20:46)
[2021-08-28] MEDS: CYANOCOBALAMIN (B-12) 500 MCG TABLET PO SCH (08:56)
[2021-08-28] MEDS: hydrALAZINE TAB 50 MG TAB PO SCH ×3 (08:56→20:46)
[2021-08-28] MEDS: NITROGLYCERIN 0.4 MG/HR PATCH TD SCH (08:57)
[2021-08-28] MEDS ORDERED: MAGNESIUM OXIDE 400 MG TAB PO SCH (09:00)
--- NOTE | 2021-08-28 09:29 | Nephrology Consultation ---
Date of Consultation August 28, 2021 Assessment & Plan (1) DILIP (acute kidney injury): Clinical presentation consistent with prerenal physiology associated with dehydration. Volume status reasonable at this time. PO intake acceptable. Non- oliguric. Electrolytes are normal. IV saline will be held. Diuretics held. Continue to hold losartan and spironolactone for now. Document I/O's. (2) Chronic kidney disease: Baseline creatinine 1.9-2.0 mg/dL. Followed at [facility] office. Goals of care reviewed briefly this AM. Medications are currently appropriately dosed for kidney function. Close outpatient follow up will be arranged at discharge. (3) BPH w urinary obs/LUTS: Records from Dr. Macias have been requested. No change in therapy. Remains on Tamsulosin. Voiding without difficulty at this time. (4) Chronic diastolic (congestive) heart failure: Volume status acceptable. TTE pending. Diuretics held. Will hold IVF and monitor. History of Present Illness Reason for Consultation: DILIP, CKD Requesting Physician: Juancho Shay MD Attending Physician: Juancho Shay MD History of Present Illness Mr. Ej Ang is an 86-year-old male with chronic kidney disease IIIb A1. Baseline creatinine 1.8-2.0 mg/dL. I have followed Carter at the [facility] nephrology clinic in [place] since November 2020. He was recently evaluated in the clinic in May. At that time, he continued to report progressive worsening LUTS. Carter had discussed possible TURP with Dr. Macias in the past and follow up with urology was arranged. Carter reports that the procedure was completed without complications in mid-July 2021. Records have been requested from Dr. Macias. Carter denies any complications with the surgery. He recovered r easonably well at home but notes that his appetite has been poor. Carter lives alone with assistance from his nephew. He describes progressive fatigue and weakness at home. He continued to take medications, including his diuretic as prescribed. Yesterday, he started to experience some lightheadedness and shortness of breath. Symptoms progressed over several hours before he contacted his neighbor for help. His neighbor contacted EMS. Carbon monoxide alarm was sounding when EMS arrived. Carter told me this morning that he is feeling much better since admission. "I must have had carbon monoxide poisoning," he said. Carboxyhemoglobin and arterial oxygenation on ABG were normal. CKD has been attributed to microvascular disease. Medical history is notable for vascular disease including carotid stenosis s/p L and R endarterectomy as well as coronary artery disease s/p CABG x 4v. CABG performed at [facility] in 1995. Right carotid in 2003 and left in 2008. Ej has not had a significan t history of hypertension or diabetes mellitus. He has has chronic HFpEF. Volume status has been controlled with Bumex 1 mg daily at a stable dose. He is maintained on LA nitrate therapy as well as losartan and spironolactone. Carter follows in the cardiology clinic with Dr. Chavira. His PCP is Panchito Anguiano PA-C. Ej describes a very sedentary lifestyle. He is limited by OA/DJD. He uses a cane to ambulate. He uses Tylenol for pain as needed. He denies any significant NSAID use. Distal obstructing stone treated with ESWL in 2012. No symptoms of kidney stone disease since that time. Carter was admitted for observation with supplemental O2 provided for comfort and gentle IV hydration with NSS. He is voiding urine without difficulty and remains non-oliguric. BP has been acceptable. Bumex, spironolactone, and losartan have been held. CXR demonstrates cardiomegaly without overt pulmonary edema or notable evidence of acute CHF. A right perihilar density was noted suggestive of an enlarged pulmonary artery. TTE was completed this AM with results pending. Allergies Allergy/AdvReac Type Severity Reaction Status Date / Time clonidine Allergy Unknown Verified 08/27/21 19:49 doxazosin [From Cardura] Allergy HIVES and Verified 08/27/21 19:49 ITCHING furosemide [From Lasix] Allergy HIVES and Verified 08/27/21 19:49 ITCHING hydrochlorothiazide Allergy ITCHING Verified 08/27/21 19:49 ketorolac [From Toradol] Allergy ACUTE Verified 08/27/21 19:49 KIDNEY INJURY potassium chloride Allergy HIVES and Verified 08/27/21 19:49 ITCHING lisinopril AdvReac COUGH Verified 08/27/21 19:49 Home Medications Medication Instructions Recorded Confirmed Type ascorbic acid (vitamin C) 1,000 mg 1 g PO DAILY #120 tab 11/24/20 08/27/21 Rx tablet aspirin 81 mg tablet,delayed 81 mg PO DAILY #30 tab 11/24/20 08/27/21 Rx release bumetanide 1 mg tablet 1 mg PO DAILY #30 tab 11/24/20 08/27/21 Rx carvedilol 12.5 mg tablet 12.5 mg PO BID #60 tab 11/24/20 08/27/21 Rx cholecalciferol (vitamin D3) 10 10 mcg PO DAILY #30 cap 11/24/20 08/27/21 Rx mcg (400 unit) capsule dutasteride 0.5 mg capsule 0.5 mg PO DAILY #30 cap 11/24/20 08/27/21 Rx ezetimibe 10 mg tablet 10 mg PO DAILY #30 tab 11/24/20 08/27/21 Rx fluocinonide 0.05 % topical cream 1 applic TOPICAL BID PRN #60 g 11/24/20 08/27/21 Rx hydralazine 100 mg tablet 100 mg PO TID #60 tab 11/24/20 08/27/21 Rx loratadine 10 mg tablet (Claritin) 10 mg PO DAILY PRN #90 tab 11/24/20 08/27/21 Rx losartan 50 mg tablet 50 mg PO BID #60 tab 11/24/20 08/27/21 Rx magnesium oxide 400 mg PO DAILY #30 cap 11/24/20 08/27/21 Rx nifedipine 60 mg tablet,extended 120 mg PO DAILY #30 tab 11/24/20 08/27/21 Rx release 24 hr (Procardia XL) nitroglycerin 0.4 mg sublingual 0.4 mg SUBLINGUAL Q5M PRN #1 tab 11/24/20 08/27/21 Rx tablet (Nitrostat) omega-3 fatty acids 1,000 mg 2,000 mg PO BID #60 cap 11/24/20 08/27/21 Rx capsule (Fish Oil Concentrate) rivaroxaban 2.5 mg tablet (Xarelto) 2.5 mg PO BID #60 tab 11/24/20 08/27/21 Rx rosuvastatin 5 mg tablet 5 mg PO DAILY #30 tab 11/24/20 08/27/21 Rx spironolactone 50 mg tablet 50 mg PO DAILY #30 tab 11/24/20 08/27/21 Rx tamsulosin 0.4 mg capsule 0.8 mg PO DAILY #30 cap 11/24/20 08/27/21 Rx triamcinolone acetonide 0.1 % 1 applic TOPICAL TID PRN #15 g 11/24/20 08/27/21 Rx topical cream vitamin B12 500 mcg-folic acid 400 1 tab PO DAILY #30 tab 11/24/20 08/27/21 Rx mcg tablet docusate sodium 100 mg capsule 100 mg PO BID 12/06/20 08/27/21 History (Colace) zinc 50 mg tablet 50 mg PO DAILY 12/06/20 08/27/21 History cyclobenzaprine 5 mg tablet 5 mg PO HS PRN 08/27/21 08/27/21 History nitroglycerin 0.4 mg/hr 1 patch TRANSDERMAL QAM MDD remove 08/27/21 08/27/21 History transdermal 24 hour patch in pm (Nitro-Dur) Patient History Medical History Carotid stenosis Diastolic CHF, chronic Hearing loss Hyperlipidemia Nephrolithiasis Osteoarthritis PAD (peripheral artery disease) Surgical History H/O endarterectomy H/O lithotripsy Hx of CABG S/P colonoscopic polypectomy S/P total knee arthroplasty left Family History Denies family history of Diabetes Kidney disease Social History Smoking Status: Never smoker Hx Alcohol Use: Yes (x15 years ago) Hx Substance Use: No Preferred Language: Montene[place]in Communication Ability: Effective Hearing Ability: Hard of Hearing Information Assurance Required: No Beliefs That Will Affect Care: None Current Living Situation: Alone current occupational status: retired Other Information That Helps Us Care for You: No Feels Safe at Home: Yes Safety Concerns: Feels Safe At This Time Assistive Devices: Walker Review of Systems Review of Systems: All systems reviewed & are unremarkable except as noted in HPI & below Constitutional: no fever and no chills Respiratory: no cough Cardiovascular: no chest pain, no palpitations, no syncope and no edema Gastrointestinal: + early satiety and + dysphagia; no nausea and no constipation Genitourinary: no dysuria, no difficulty urinating, no urinary incontinence or no hematuria Physical Exam Constitutional: + frail appearing; no acute distress Eyes: no scleral abnormality and no corneal abnormality ENMT: Ears: + hearing impairment Mouth: no oral mucosal abnormality and oral mucous membranes not dry Neck: normal visual inspection and trachea midline Respiratory: normal respiratory effort Auscultation: lungs clear to auscultation bilaterally Cardiovascular: Rate/Rhythm: regular rate Heart Sounds: normal S1, normal S2 and + murmur Extremities: + edema and + varicosities Musculoskeletal: Extremities: no cyanosis and no clubbing Skin: normal turgor; no lesions Neurologic: Motor/Sensory: no tremor and no asterixis Psychiatric: Orientation: alert and oriented x 3 Results & Data ([facility]) Vital Signs (Past 12 Hours) Vital Signs Temp Pulse Pulse Pulse Resp BP BP 08/28/21 06:24 36.7 C 55 L 20 121/67 08/28/21 06:13 55 L 08/28/21 03:58 36.4 C L 53 L 18 134/72 08/28/21 02:48 63 08/28/21 02:26 36.5 C 64 18 08/28/21 01:35 36.5 C 64 18 08/28/21 01:01 61 18 139/64 08/28/21 00:52 61 18 08/27/21 22:57 57 L 20 08/27/21 21:40 59 L 18 BP Pulse Ox Pulse Ox 08/28/21 06:24 97 08/28/21 06:13 08/28/21 03:58 96 08/28/21 02:48 08/28/21 02:26 144/70 H 98 08/28/21 01:35 144/70 H 98 98 08/28/21 01:01 99 08/28/21 00:52 139/64 99 08/27/21 22:57 128/54 L 99 08/27/21 21:40 131/50 L 99 Laboratory Results Laboratory Results - last 24 hr 08/27/21 08/27/21 08/27/21 18:42 18:42 18:42 WBC RBC Hgb Hct MCV MCH MCHC RDW Std Deviation RDW Coeff of Dmitriy Plt Count MPV Immature Gran % (Auto) Neut % (Auto) Lymph % (Auto) [place] % (Auto) Eos % (Auto) Baso % (Auto) Neut # (Auto) Lymph # (Auto) [place] # (Auto) Eos # (Auto) Baso # (Auto) Immature Gran # (Auto) Absolute Nucleated RBC Nucleated RBC % (auto) PT 11.4 INR 1.1 APTT 33.0 H PTT Ratio 1.2 ABG pH ABG pCO2 ABG pO2 ABG HCO3 ABG O2 Saturation ABG Base Excess Spenser Test VBG pH VBG pCO2 VBG pO2 VBG HCO3 VBG O2 Saturation VBG Base Excess Carboxyhemoglobin Barometric Pressure Oxygen Given Sodium 129 L Potassium 5.2 H Chloride 102 Carbon Dioxide 14 L Anion Gap 13 H BUN 90 H Creatinine 2.75 H Est Cr Clr Drug Dosing 19.2 Est GFR ( Amer) 23.3 Est GFR (Non-Af Amer) 20.1 BUN/Creatinine Ratio 32.7 H Glucose 113 H Calcium 8.4 L Magnesium 3.4 H Total Bilirubin 0.4 AST 35 ALT 141 H Alkaline Phosphatase 56 Troponin I High Sens 2093.7 H* Total Protein 6.3 Albumin 3.7 Globulin 2.6 Albumin/Globulin Ratio 1.4 Urine Color Urine Appearance Urine pH Ur Specific [place] Urine Protein Urine Glucose (UA) Urine Ketones Urine Blood Urine Nitrite Urine Bilirubin Urine Urobilinogen Ur Leukocyte Esterase Urine WBC (Auto) Urine RBC (Auto) U Hyaline Cast (Auto) U Epithel Cells (Auto) Urine Bacteria (Auto) SARS-CoV-2 (PCR) Influenza Type A (PCR) Influenza Type B (PCR) RSV (RT-PCR) 08/27/21 08/27/21 08/27/21 18:42 18:42 18:45 WBC 7.13 RBC 3.89 L Hgb 11.2 L Hct 33.7 L MCV 86.6 MCH 28.8 MCHC 33.2 RDW Std Deviation 51.9 H RDW Coeff of Dmitriy 16.6 H Plt Count 293 MPV 10.6 H Immature Gran % (Auto) 0.4 Neut % (Auto) 72.0 Lymph % (Auto) 6.6 [place] % (Auto) 8.0 Eos % (Auto) 12.9 Baso % (Auto) 0.1 Neut # (Auto) 5.13 Lymph # (Auto) 0.47 L [place] # (Auto) 0.57 Eos # (Auto) 0.92 H Baso # (Auto) 0.01 Immature Gran # (Auto) 0.03 H Absolute Nucleated RBC 0.03 H Nucleated RBC % (auto) 0.4 PT INR APTT PTT Ratio ABG pH ABG pCO2 ABG pO2 ABG HCO3 ABG O2 Saturation ABG Base Excess Spenser Test VBG pH 7.31 L VBG pCO2 31 L VBG pO2 36 VBG HCO3 15 VBG O2 Saturation 63.3 VBG Base Excess -9.7 Carboxyhemoglobin 2.9 Barometric Pressure 731.2 Oxygen Given Sodium Potassium Chloride Carbon Dioxide Anion Gap BUN Creatinine Est Cr Clr Drug Dosing Est GFR ( Amer) Est GFR (Non-Af Amer) BUN/Creatinine Ratio Glucose Calcium Magnesium Total Bilirubin AST ALT Alkaline Phosphatase Troponin I High Sens Total Protein Albumin Globulin Albumin/Globulin Ratio Urine Color Urine Appearance Urine pH Ur Specific [place] Urine Protein Urine Glucose (UA) Urine Ketones Urine Blood Urine Nitrite Urine Bilirubin Urine Urobilinogen Ur Leukocyte Esterase Urine WBC (Auto) Urine RBC (Auto) U Hyaline Cast (Auto) U Epithel Cells (Auto) Urine Bacteria (Auto) SARS-CoV-2 (PCR) Influenza Type A (PCR) Influenza Type B (PCR) RSV (RT-PCR) 08/27/21 08/27/21 08/27/21 20:10 21:48 21:53 WBC RBC Hgb Hct MCV MCH MCHC RDW Std Deviation RDW Coeff of Dmitriy Plt Count MPV Immature Gran % (Auto) Neut % (Auto) Lymph % (Auto) [place] % (Auto) Eos % (Auto) Baso % (Auto) Neut # (Auto) Lymph # (Auto) [place] # (Auto) Eos # (Auto) Baso # (Auto) Immature Gran # (Auto) Absolute Nucleated RBC Nucleated RBC % (auto) PT INR APTT PTT Ratio ABG pH 7.36 ABG pCO2 27 L ABG pO2 277 H ABG HCO3 15 L ABG O2 Saturation 99.8 H ABG Base Excess -9.2 L Spenser Test Pos VBG pH VBG pCO2 VBG pO2 VBG HCO3 VBG O2 Saturation VBG Base Excess Carboxyhemoglobin Barometric Pressure 731.2 Oxygen Given 15 Sodium Potassium Chloride Carbon Dioxide Anion Gap BUN Creatinine Est Cr Clr Drug Dosing Est GFR ( Amer) Est GFR (Non-Af Amer) BUN/Creatinine Ratio Glucose Calcium Magnesium Total Bilirubin AST ALT Alkaline Phosphatase Troponin I High Sens Total Protein Albumin Globulin Albumin/Globulin Ratio Urine Color Yellow Urine Appearance Clear Urine pH 5.0 Ur Specific [place] 1.018 Urine Protein Negative Urine Glucose (UA) Negative Urine Ketones Negative Urine Blood 1+ H Urine Nitrite Negative Urine Bilirubin Negative Urine Urobilinogen Negative Ur Leukocyte Esterase Negative Urine WBC (Auto) 0 Urine RBC (Auto) >30 H U Hyaline Cast (Auto) 1-5 U Epithel Cells (Auto) 0-5 Urine Bacteria (Auto) Negative SARS-CoV-2 (PCR) NEGATIVE Influenza Type A (PCR) Negative Influenza Type B (PCR) Negative RSV (RT-PCR) Negative 08/28/21 08/28/21 05:34 05:34 WBC 7.52 RBC 3.54 L Hgb 10.3 L Hct 31.0 L MCV 87.6 MCH 29.1 MCHC 33.2 RDW Std Deviation 53.1 H RDW Coeff of Dmitriy 16.7 H Plt Count 267 MPV 10.3 Immature Gran % (Auto) 0.3 Neut % (Auto) 67.6 Lymph % (Auto) 9.0 [place] % (Auto) 7.6 Eos % (Auto) 15.4 Baso % (Auto) 0.1 Neut # (Auto) 5.08 Lymph # (Auto) 0.68 L [place] # (Auto) 0.57 Eos # (Auto) 1.16 H Baso # (Auto) 0.01 Immature Gran # (Auto) 0.02 Absolute Nucleated RBC Nucleated RBC % (auto) PT INR APTT PTT Ratio ABG pH ABG pCO2 ABG pO2 ABG HCO3 ABG O2 Saturation ABG Base Excess Sepnser Test VBG pH VBG pCO2 VBG pO2 VBG HCO3 VBG O2 Saturation VBG Base Excess Carboxyhemoglobin Barometric Pressure Oxygen Given Sodium 131 L Potassium 5.2 H Chloride 105 Carbon Dioxide 16 L Anion Gap 10 BUN 87 H Creatinine 2.50 H Est Cr Clr Drug Dosing 22.3 Est GFR ( Amer) 26.2 Est GFR (Non-Af Amer) 22.6 BUN/Creatinine Ratio 34.8 H Glucose 90 Calcium 8.1 L Magnesium 3.2 H Total Bilirubin AST ALT Alkaline Phosphatase Troponin I High Sens 1947.7 H* Total Protein Albumin Globulin Albumin/Globulin Ratio Urine Color Urine Appearance Urine pH Ur Specific [place] Urine Protein Urine Glucose (UA) Urine Ketones Urine Blood Urine Nitrite Urine Bilirubin Urine Urobilinogen Ur Leukocyte Esterase Urine WBC (Auto) Urine RBC (Auto) U Hyaline Cast (Auto) U Epithel Cells (Auto) Urine Bacteria (Auto) SARS-CoV-2 (PCR) Influenza Type A (PCR) Influenza Type B (PCR) RSV (RT-PCR) PG Care Time/CCT Total # of Minutes Spent Total Time Spent with Patient: Total time spent is greater than 50% in coordination of care (as documented) at patient's floor/unit and/or counseling patient: Coding Level of Care Code 32195 Inpt Consult Level 4 Diagnoses Chronic kidney disease N18.9 DILIP (acute kidney injury) N17.9 BPH w urinary obs/LUTS N40.1; N13.8 Chronic diastolic (congestive) heart failure I50.32
--- NOTE | 2021-08-28 09:50 | Cardiology Consultation ---
Date of Consultation August 28, 2021 Assessment & Plan (1) Chronic diastolic (congestive) heart failure: (2) HFrEF (heart failure with reduced ejection fraction): (3) Cardiomyopathy: (4) Abnormal EKG: (5) Coronary artery disease: (6) FH: CABG (coronary artery bypass surgery): (7) PAD (peripheral artery disease): (8) Carotid disease, bilateral: (9) Chronic kidney disease: 86 year old male with history of HFpEF, CKD stage 3, significant PAD and carotid stenosis s/p endarterectomy- follows with [facility] vascular, and CABG x4 in 1995- presenting to [facility] due to acute SOB initially felt to be in the setting of carbon monoxide exposure. Found to have new onset HFrEF with an abnormal EKG and WMA on echo. It is likely patient does have worsening CAD given vascular history. Currently stable from a cardiac standpoint- asymptomatic. No concerns of chest pain or sob. 1. Large mass found on CXR- CT of chest WITHOUT contrast recommended due to renal function 2. Patient on vascular dose of DOAC- given labile renal function and new HFrEF with EKG changes, consulted pharmacy to transition from DOAC to IV heparin for the time being. Patient would be high risk for cardiac cath. 3. Patient euvolemic on exam- no titration to diuretics necessary at this time. Supervising Physician Co-Signing Physician Notes 86-year-old patient seen and examined at bedside. Presented to the emergency department due to possible carbon monoxide exposure. Reports "I just could not get my power". Denies any shortness of breath, orthopnea, or PND. Her lower extremities are swollen. Patient somewhat of a poor historian. He is unsure whether the edema is new or chronic. Denies any chest discomfort or heaviness. No lightheadedness, dizziness, syncope, or near syncope. PE: VSS with borderline hypotension. General: NAD, poor historian. Heart: Regular, normal S1-S2. 1/6 systolic ejection murmur heard best at the right second intercostal space. Lungs: Diminished breath sounds without rales, rhonchi, or wheeze. Abdomen soft nontender no rebound or guarding. Extremities demonstrate 2+ bilateral pretibial edema. A/P: Agree with above AP history, physical exam, assessment and plan with the following additions. Complex 86-year-old patient presents with possible carbon monoxide exposure and elevated troponin. Denies any chest discomfort. ECG with lateral ST abnormality. Troponins elevated. Patient chronically treated with low-dose Xarelto due to peripheral vascular disease. X-ray with evidence of possible right hilar mass. 2D transthoracic echocardiogram demonstrating anterior lateral wall motion abnormality of unknown chronicity. Significant risk factors, elevated troponin, abnormal ECG and echocardiogram, recommend discontinuation of Xarelto with initiation of intravenous heparin. Patient is not a strong candidate for cardiac catheterization due to acute on chronic renal insufficiency. Appreciate nephrology input. Diuretics currently on hold although, I will discuss addition of IV diuretic therapy due to clinical evidence of volume overload (edema) Continue outpatient cardiovascular medications including aspirin, carvedilol, and rosuvastatin. Hold losartan at this time. Continue to monitor blood pressure closely. If BP remains consistently below 120 mmHg, I will consider reducing hydralazine to [address] of the chest without contrast for further evaluation of right hilar mass. Obtain records from patient's outpatient manager assurance, Dr. Chavira. Addendum: CT of the chest without evidence of hilar mass. Right hilar fullness due to prominent pulmonary artery. CT demonstrates interstitial edema. Discussed with nephrology. We will initiate IV diuretic therapy, Bumex 1 mg. Reassess renal function and electrolytes in a.m. Follow fluid balance, daily w eight, and GFR. History of Present Illness Reason for Consultation: Shortness of breath Requesting Physician: Rudolph Aburto Attending Physician: Juancho Shay MD History of Present Illness An 86-year-old male with past medical history significant for chronic diastolic CHF, chronic kidney disease stage III, baseline creatinine 1.8 to 2.0, PVD with history of carotid stenosis, status post bilateral endarterectomy; CAD s/p CABG performed at [facility] in 1995; hypertension, and anemia presents with shortness of breath. Patient follows in the cardiology clinic with Dr. Chavira in [place]. Patient had acute onset of shortness of breath by 6-8 hours. EMS was called. When arrived his carbon monoxide alarm was sounding, as well as the EMS carbon monoxide alarms. Patient has been more weak and frail recently at home. Notable for a poor appetite, only eating pudding and cereal. Lab work done: chemistry notable for hyponatremia and hyperkalemia. Scr increased for 2.75-2.5 (baseline 1.8-2.0). High sensitivity Troponin increased at 2093>>1947. Carboxyhemoglobin and arterial oxygenation on ABG were normal. Echo 08/28: LVEF reduced at 45-50%, moderate sized anterior and lateral WMA with hypokinesis to akinesis of the segments. Moderate Aortic sclerosis, no stenosis. Mild AI, Mild MR/TR, grade 3 diastolic dysfunction. pulm artery pressure of 51 mmHg CXR 08/27: 1. Cardiomegaly with no acute cardiopulmonary abnormality identified. 2. A large right perihilar density is nonspecific and may represent enlarged pulmonary artery. A contrast-enhanced CT of the chest is recommended to exclude underlying lymphadenopathy or mass lesion. EKG 08/27: NSR, possible anterior infarct, 64 bpm Upon entrance int other room patient was sitting up in the chair in no acute distress. Stated that he is back to his baseline and feeling well. No chest pain, or shortness of breath. No dizziness or syncope. Tele: SR in the 60s with PVCs. Allergies Allergy/AdvReac Type Severity Reaction Status Date / Time clonidine Allergy Unknown Verified 08/27/21 19:49 doxazosin [From Cardura] Allergy HIVES and Verified 08/27/21 19:49 ITCHING furosemide [From Lasix] Allergy HIVES and Verified 08/27/21 19:49 ITCHING hydrochlorothiazide Allergy ITCHING Verified 08/27/21 19:49 ketorolac [From Toradol] Allergy ACUTE Verified 08/27/21 19:49 KIDNEY INJURY potassium chloride Allergy HIVES and Verified 08/27/21 19:49 ITCHING lisinopril AdvReac COUGH Verified 08/27/21 19:49 Home Medications Medication Instructions Recorded Confirmed Type ascorbic acid (vitamin C) 1,000 mg 1 g PO DAILY #120 tab 11/24/20 08/27/21 Rx tablet aspirin 81 mg tablet,delayed 81 mg PO DAILY #30 tab 11/24/20 08/27/21 Rx release bumetanide 1 mg tablet 1 mg PO DAILY #30 tab 11/24/20 08/27/21 Rx carvedilol 12.5 mg tablet 12.5 mg PO BID #60 tab 11/24/20 08/27/21 Rx cholecalciferol (vitamin D3) 10 10 mcg PO DAILY #30 cap 11/24/20 08/27/21 Rx mcg (400 unit) capsule dutasteride 0.5 mg capsule 0.5 mg PO DAILY #30 cap 11/24/20 08/27/21 Rx ezetimibe 10 mg tablet 10 mg PO DAILY #30 tab 11/24/20 08/27/21 Rx fluocinonide 0.05 % topical cream 1 applic TOPICAL BID PRN #60 g 11/24/20 08/27/21 Rx hydralazine 100 mg tablet 100 mg PO TID #60 tab 11/24/20 08/27/21 Rx loratadine 10 mg tablet (Claritin) 10 mg PO DAILY PRN #90 tab 11/24/20 08/27/21 Rx losartan 50 mg tablet 50 mg PO BID #60 tab 11/24/20 08/27/21 Rx magnesium oxide 400 mg PO DAILY #30 cap 11/24/20 08/27/21 Rx nifedipine 60 mg tablet,extended 120 mg PO DAILY #30 tab 11/24/20 08/27/21 Rx release 24 hr (Procardia XL) nitroglycerin 0.4 mg sublingual 0.4 mg SUBLINGUAL Q5M PRN #1 tab 11/24/20 08/27/21 Rx tablet (Nitrostat) omega-3 fatty acids 1,000 mg 2,000 mg PO BID #60 cap 11/24/20 08/27/21 Rx capsule (Fish Oil Concentrate) rivaroxaban 2.5 mg tablet (Xarelto) 2.5 mg PO BID #60 tab 11/24/20 08/27/21 Rx rosuvastatin 5 mg tablet 5 mg PO DAILY #30 tab 11/24/20 08/27/21 Rx spironolactone 50 mg tablet 50 mg PO DAILY #30 tab 11/24/20 08/27/21 Rx tamsulosin 0.4 mg capsule 0.8 mg PO DAILY #30 cap 11/24/20 08/27/21 Rx triamcinolone acetonide 0.1 % 1 applic TOPICAL TID PRN #15 g 11/24/20 08/27/21 Rx topical cream vitamin B12 500 mcg-folic acid 400 1 tab PO DAILY #30 tab 11/24/20 08/27/21 Rx mcg tablet docusate sodium 100 mg capsule 100 mg PO BID 12/06/20 08/27/21 History (Colace) zinc 50 mg tablet 50 mg PO DAILY 12/06/20 08/27/21 History cyclobenzaprine 5 mg tablet 5 mg PO HS PRN 08/27/21 08/27/21 History nitroglycerin 0.4 mg/hr 1 patch TRANSDERMAL QAM MDD remove 08/27/21 08/27/21 History transdermal 24 hour patch in pm (Nitro-Dur) Patient History Medical History Carotid stenosis Diastolic CHF, chronic Hearing loss Hyperlipidemia Nephrolithiasis Osteoarthritis PAD (peripheral artery disease) Surgical History H/O endarterectomy H/O lithotripsy Hx of CABG S/P colonoscopic polypectomy S/P total knee arthroplasty left Family History Denies family history of Diabetes Kidney disease Social History Smoking Status: Never smoker Hx Alcohol Use: Yes (x15 years ago) Hx Substance Use: No Preferred Language: Finnish Communication Ability: Effective Hearing Ability: Hard of Hearing Engraver Copperplate Required: No Beliefs That Will Affect Care: None Current Living Situation: Alone current occupational status: retired Other Information That Helps Us Care for You: No Feels Safe at Home: Yes Safety Concerns: Feels Safe At This Time Assistive Devices: Walker Review of Systems Review of Systems: All systems reviewed & are unremarkable except as noted in HPI & below Physical Exam Physical Exam: General: No acute distress. A+Ox3. HEENT: Normocephalic. Atraumatic. Conjunctiva and sclera clear. NECK: No carotid bruits. No JVD. Carotid upstrokes are brisk. Heart: RRR. S1 and S2 noted without murmur, rubs, gallops. Lungs: Clear to auscultation. No wheezes, rhonchi, rales. Abdomen: Normal bowel sounds. Soft. Nontender. No masses or organomegaly. No abdominal bruits. Extremities: +1 BLLE edema, pitting. Pulses: radial=2/4, posterior tibial=2/4, dorsalis pedis = 2/4. NEURO: No focal deficits. PSYCH: Normal. Results & Data ([facility]) Vital Signs (Past 12 Hours) Vital Signs Temp Pulse Pulse Pulse Resp BP BP 08/28/21 06:24 36.7 C 55 L 20 121/67 08/28/21 06:13 55 L 08/28/21 03:58 36.4 C L 53 L 18 134/72 08/28/21 02:48 63 08/28/21 02:26 36.5 C 64 18 08/28/21 01:35 36.5 C 64 18 08/28/21 01:01 61 18 139/64 08/28/21 00:52 61 18 08/27/21 22:57 57 L 20 BP Pulse Ox Pulse Ox 08/28/21 06:24 97 08/28/21 06:13 08/28/21 03:58 96 08/28/21 02:48 08/28/21 02:26 144/70 H 98 08/28/21 01:35 144/70 H 98 98 08/28/21 01:01 99 08/28/21 00:52 139/64 99 08/27/21 22:57 128/54 L 99 Laboratory Results Cardiac Enzymes 08/27/21 08/27/21 08/28/21 Range/Units 18:42 18:42 05:34 AST 35 (13-39) U/L Troponin I High Sens 2093.7 H* 1947.7 H* (0-20) pg/ml 08/28/21 Range/Units 10:50 AST (13-39) U/L Troponin I High Sens 1795.9 H* (0-20) pg/ml Coagulation 08/27/21 Range/Units 18:42 PT 11.4 (9.0-12.0) Seconds APTT 33.0 H (21.0-31.0) Seconds CBC 08/27/21 08/28/21 Range/Units 18:45 05:34 WBC 7.13 7.52 (4.8-10.8) K/uL RBC 3.89 L 3.54 L (4.7-6.1) M/uL Hgb 11.2 L 10.3 L (14.0-18.0) g/dL Hct 33.7 L 31.0 L (42-52) % Plt Count 293 267 (130-400) K/uL Neut # (Auto) 5.13 5.08 (1.4-6.5) K/uL Lymph # (Auto) 0.47 L 0.68 L (1.2-3.4) K/uL Clinch # (Auto) 0.57 0.57 (0.11-0.59) K/uL Eos # (Auto) 0.92 H 1.16 H (0-0.5) K/uL Baso # (Auto) 0.01 0.01 (0-0.2) K/uL Comprehensive Metabolic Panel 08/27/21 08/28/21 Range/Units 18:42 05:34 Sodium 129 L 131 L (136-145) mmol/L Potassium 5.2 H 5.2 H (3.5-5.1) mmol/L Chloride 102 105 (98-107) mmol/L Carbon Dioxide 14 L 16 L (21-32) mmol/L BUN 90 H 87 H (6-23) mg/dl Creatinine 2.75 H 2.50 H (0.6-1.4) mg/dl Glucose 113 H 90 (70-99(Fasting)) mg/dl Calcium 8.4 L 8.1 L (8.5-10.1) mg/dl AST 35 (13-39) U/L ALT 141 H (7-52) U/L Alkaline Phosphatase 56 (34-104) U/L Total Protein 6.3 (6.0-8.3) gm/dl Albumin 3.7 (3.4-5.0) gm/dl Intake and Output 08/27/21 08/28/21 08/28/21 22:59 06:59 14:59 Intake Total 200 / 200 595 / 595 Balance 200 / 200 595 / 595 Intake: IV 595 / 595 Sodium Chloride 0.9% 1000ML 1, 595 / 595 000 ml @ 75 mls/hr IV .[id number] [facility] Rx#:[id number] Oral 200 / 200 Other: Weight 84.1 kg 86.4 kg Weight Measurement Method Built in [facility] Standing Scale
[2021-08-28] MEDS: SODIUM BICARBONATE 650 MG TAB PO SCH ×2 (10:44→20:45)
[2021-08-28] MEDS ORDERED: CONSULT PHARMACY STA (12:00)
--- NOTE | 2021-08-28 13:35 | CT Scan Report ---
CT OF THE CHEST WITHOUT IV CONTRAST CLINICAL HISTORY: right hilar mass on CXR COMPARISON STUDY: Chest radiograph August 27, 2021. CT DOSE: 309.54 mGy.cm TECHNIQUE: Axial images of the chest were obtained without IV contrast. Images were reviewed in the axial, sagittal, and coronal planes. IV contrast was not administered for this examination. Automat ed exposure control was utilized for the study. A dose lowering technique was utilized adhering to [facility] principles of ALARA. FINDINGS: Note is made of median sternotomy wires and postoperative findings from bypass grafting. E xtensive coronary artery calcification is present. Extensive atherosclerotic calcification of the tho racic aorta is noted. There is no pericardial effusion. Moderate cardiomegaly is present. There is di latation of the central pulmonary arteries. In part, this accounts for right hilar prominence on ches t radiograph. There is no right hilar mass. There is no lymphadenopathy. Small bilateral pleural effu sions are noted. There is no pneumothorax. Lungs are suboptimally assessed on this exam due to respir atory motion. No consolidation is identified to suggest pneumonia. Subpleural opacities reflect atele ctasis. Mild interlobular septal thickening is present. Bilateral gynecomastia is present. No suspici ous pulmonary nodules are present. No suspicious lesions within the visualized bony thorax. There is an acute appearing mildly displaced fracture of the lateral right fifth rib there and an acute appear ing mildly displaced fracture of the anterior right fourth rib. Suspected nondisplaced fracture of th e anterior right third rib is present. Visualized portions of the upper abdomen are unremarkable on t his unenhanced exam. IMPRESSION: 1. No right hilar mass. Right hilar prominence on chest radiograph is due to an enlarged right pulmon tia artery. This could indicate pulmonary arterial hypertension. 2. Small bilateral pleural effusions. Mild interstitial pulmonary edema. 3. Acute appearing fractures of the right third, fourth and fifth ribs. No pneumothorax. ACT 112: Negative or not required by law. Electronically signed by: Nino Lyman M.D. 08/28/2021 1:33 PM
[2021-08-28] MEDS ORDERED: BUMETANIDE 1 MG in SYRINGE 0 ML IV ONE (15:30)
--- NOTE | 2021-08-28 16:02 | Hospitalist Progress Note ---
Date of Service August 28, 2021 Assessment & Plan (1) Shortness of breath: Plan: per Dr. Motta's notes with addendum: ASSESSMENT AND PLAN: 1. This is an 86-year-old male who presents with shortness of breath The patient has coal stove at home and his CO alarm was going on, but his carboxyhemoglobin is okay. Currently, he is feeling better. Denies any shortness of breath. Chest x-ray was okay. The patient has history of diastolic congestive heart failure, has lower extremity edema, on Bumex at home. We will monitor in the hospital in [place]. We will get an echocardiogram. Continue oxygenation for now. - newly diagnosed CHF, Systolic and Diastolic, Acute Exacerbation Bumex 1 g IV given monitor closely 2. Acute kidney injury, on chronic kidney disease stage III. Baseline creatinine around 1.8 to 2.0. Today creatinine of 2.7 and also metabolic acidosis. Holding losartan, Bumex, and spironolactone. Doing gentle fluids. We will follow the repeat labs in the a.m., consult nephrology in the a.m. 5/2 monitor crea while on IV diuretics 3. Hyponatremia and hyperkalemia. Na 131 K 5.2 monitor closely Nephro on board 4. Troponin high sensitivity elevation. Possible NSTEMI The patient denies any chest pain. - Echo: no wall motion abnormalities Troponin elevation likely from ESRD, CHF 5. History of coronary artery disease, status post CABG. Continue his home medication of aspirin, Coreg, nitropatch, rosuvastatin 6. History of benign prostatic hypertrophy. Seems to have recently had prostate procedure. On Flomax. Monitor for any urinary retention. 7. Hypertension, on Coreg, hydralazine. nifedipine, nitropatch. Holding losartan, spironolactone 8. Hyperlipidemia, on statin. 9. Peripheral vascular disease: On aspirin, statin. Needs to get records from his primary doctor and Cardiology office, not sure why the patient is on Xarelto. 10. Deep venous thrombosis prophylaxis: On Xarelto. DISPOSITION: Closely monitor in [place]. PT/OT prior discharge. Social service to help with discharge planning. The make sure home is safe for discharge as there was question of CO levels been high at home.. Level 1 full code as per my discussion with the patient. Admission and Anticipated Discharge Date Admission Date: August 27, 2021 Subjective ff up for shortness of breath, etc seen resting in bed, sitting up states he feels fine overall no active chest pain, dyspnea, palpitations, dizziness no problems with urination no other symptoms Review of Systems Review of Systems: all noted and negative except for above Physical Exam Physical Exam: General- oriented x 3, not in distress, speaks in sentences with no effort or accessory muscle use Head- atraumatic Eyes- PERRL, EOMI, anicteric ENT- oropharynx clear Neck- supple, no JVD, no adenopathy, no thyromegaly; carotids +2/2, no bruits appreciated Lungs- clear to auscultation bilaterally, no rales/wheezes Heart- normal rate, regular rhythm; no murmur, no gallop, no rub appreciated Abdomen- normal bowel sounds, nondistended, soft, nontender, no masses or hepatosplenomegaly Extremities-(+) grade 2 lower extremity edema Neuro- alert, oriented x 3; CN 2-12 grossly intact; motor 5/5 bilaterally;sensation 100% on all extremities; no other gross focal neurologic deficits Skin- warm & dry Results & Data Results & Data ([facility]) Vital Signs (Past 12 Hours) Vital Signs Temp Pulse Pulse Resp BP Pulse Ox 08/28/21 15:11 36.8 C 56 L 20 119/64 95 08/28/21 13:41 58 L 114/61 08/28/21 11:14 36.6 C 58 L 20 115/56 L 97 08/28/21 06:24 36.7 C 55 L 20 121/67 97 08/28/21 06:13 55 L all noted and reviewed including below
[2021-08-28 20:35] LABS: BUN Creatinine Ratio 34.3 (10-20); Calcium 8.2 mg/dl (8.5-10.1); Creatinine Clr Calc Pharmacy 23.6 ml/min; Est GFR (Non-African American) 24.2 ml/min; Potassium 5.3 mmol/L (3.5-5.1)
[2021-08-29] MEDS: ACETAMINOPHEN 325 MG TAB PO PRN (01:47)
[2021-08-29 07:48] LABS: Hematocrit (blood only) 29.5 % (42-52); Hemoglobin 9.8 g/dL (14.0-18.0); Mean Corpuscular Hemoglobin 28.8 pg (25-34); Mean Corpuscular Hgb Conc 33.2 g/dL (32-36); Mean Corpuscular Volume 86.8 fL (80-100); Mean Platelet Volume 9.9 fL (7.4-10.4); Platelet Count 244 K/uL (130-400); RDW Coefficient of Variation 16.9 % (11.5-14.5); RDW Standard Deviation 52.8 fL (36.4-46.3); White Blood Count 7.82 K/uL (4.8-10.8)
--- NOTE | 2021-08-29 08:03 | Cardiology Progress Note ---
Date of Service August 29, 2021 Assessment & Plan (1) Chronic diastolic (congestive) heart failure: (2) HFrEF (heart failure with reduced ejection fraction): (3) Cardiomyopathy: (4) Abnormal EKG: (5) Coronary artery disease: (6) FH: CABG (coronary artery bypass surgery): (7) PAD (peripheral artery disease): (8) Carotid disease, bilateral: (9) Chronic kidney disease: Plan: 86 year old male with history of HFpEF, CKD stage 3, significant PAD and carotid stenosis s/p endarterectomy- follows with [facility] vascular, and CABG x4 in 1995- presenting to [facility] due to acute SOB initially felt to be in the setting of carbon monoxide exposure. Found to have new onset HFrEF with an abnormal EKG and WMA on echo. It is likely patient does have worsening CAD given vascular history. Currently stable from a cardiac standpoint- asymptomatic. No concerns of chest pain or sob. 1. CT of the chest without evidence of hilar mass. Right hilar fullness due to prominent pulmonary artery. CT demonstrates interstitial edema. Renal function improved with the addition of IV Bumex, continue IV Bumex 1 mg daily- trend renal function and replace electrolytes as necessary. Appreciate nephrology input. 2. 1500 cc fluid restriction, strict I&Os, daily weights. 3. Patient on vascular dose of DOAC- given labile renal function and new HFrEF with EKG changes, previous recommendation of transitioning for Xarelto to IV heparin. Patient would be high risk for cardiac cath. Possible troponin elevation due to renal dysfunction and CHF. 4. If BP remains consistently below 120 mmHg, will consider reducing hydralazine to 50 mg 3 times daily. 5. 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 Chavira. Admission and Anticipated Discharge Date Admission Date: August 27, 2021 Supervising Physician Co-Signing Physician Notes 86-year-old patient seen and examined at bedside. Diuretic therapy restarted with mildly negative fluid balance. Weight loss recorded. Creatinine trending downward. PE: VSS with borderline hypotension. General: NAD, poor historian. Heart: Regular, normal S1-S2. 1/6 systolic ejection murmur heard best at the right second intercostal space. Lungs: Diminished breath sounds without rales, rhonchi, or wheeze. Abdomen soft nontender no rebound or guarding. Extremities demonstrate 2+ bilateral pretibial edema. A/P: Agree with above AP history, physical exam, assessment and plan with the following additions. Complex 86-year-old patient presents with possible carbon monoxide exposure and elevated troponin. Preliminary review of outpatient records suggest the anterior lateral wall motion abnormality is chronic. We will attempt to obtain old ECG for comparison. CT without evidence of hilar mass. Initiate IV heparin for 48 hours. Low-dose Xarelto (PVD dose). Continue cautious diuresis. Bumex 1 mg ordered by nephrology today. Follow daily weight, fluid balance, GFR, and electrolytes. Continue outpatient cardiovascular medications including aspirin, carvedilol, and rosuvastatin. Hold losartan. Monitor blood pressure closely. Occasional episodes of hypotension recorded. Recommend reducing hydralazine to 50 mg 3 times daily. Subjective Complex 86-year-old patient presents with possible carbon monoxide exposure and elevated troponin. ECG with lateral ST abnormality. Troponins elevated. Patient chronically treated with low-dose Xarelto due to peripheral vascular disease. X-ray with evidence of possible right hilar mass- CT of the chest showed no evidence of mass, but dilation of the central pulmonary arteries (? pulm HTN). 2D transthoracic echocardiogram demonstrating anterior lateral wall motion abnormality of unknown chronicity. Significant risk factors, elevated troponin, abnormal ECG and echocardiogram. Patient is not a strong candidate for cardiac catheterization due to acute on chronic renal insufficiency. Renal function improved with x1 dose of IV Bumex 1 mg. Second dose given this am by nephrology. Chest CT: 1. No right hilar mass. Right hilar prominence on chest radiograph is due to an enlarged right pulmonary artery. This could indicate pulmonary arterial hypertension. 2. Small bilateral pleural effusions. Mild interstitial pulmonary edema. 3. Acute appearing fractures of the right third, fourth and fifth ribs. No pneumothorax. Labs: worsening hemoglobin, Troponins 2093>>[id number]>>[id number]>>1906, BMP with improvement in sodium and scr. Upon entrance into the room patient sleeping in chair. wakes easily. Notes an improvement in his lower extremity edema, states that the swelling is new for him. No chest pain, no shortness of breath. No orthopnea. States that last night was the "best sleep he had in 6 weeks". Tele: SR 60 bpm Review of Systems Review of Systems: All systems reviewed & are unremarkable except as noted in HPI & below Physical Exam Physical Exam: General: No acute distress. A+Ox3. HEENT: Normocephalic. Atraumatic. Conjunctiva and sclera clear. NECK: No carotid bruits. No JVD. Carotid upstrokes are brisk. Heart: RRR. S1 and S2 noted without murmur, rubs, gallops. Lungs: Clear to auscultation. No wheezes, rhonchi, rales. Abdomen: Normal bowel sounds. Soft. Nontender. No masses or organomegaly. No abdominal bruits. Extremities: +1 BLLE edema, pitting. Pulses: radial=2/4, posterior tibial=2/4, dorsalis pedis = 2/4. NEURO: No focal deficits. PSYCH: Normal. Results & Data ([facility]) Vital Signs (Past 12 Hours) Vital Signs Temp Pulse Pulse Resp BP Pulse Ox Pulse Ox 08/29/21 07:41 36.5 C 59 L 18 108/51 L 95 08/29/21 06:13 56 L 08/29/21 04:04 36.5 C 62 18 99/47 L 96 08/29/21 01:35 97 08/28/21 23:49 36.8 C 63 18 128/64 95 08/28/21 23:00 52 L Laboratory Results Cardiac Enzymes 08/28/21 08/28/21 Range/Units 10:50 16:57 Troponin I High Sens 1795.9 H* 1906.2 H* (0-20) pg/ml CBC 08/29/21 Range/Units 07:26 WBC 7.82 (4.8-10.8) K/uL RBC 3.40 L (4.7-6.1) M/uL Hgb 9.8 L (14.0-18.0) g/dL Hct 29.5 L (42-52) % Plt Count 244 (130-400) K/uL Comprehensive Metabolic Panel 08/28/21 Range/Units 19:34 Sodium 132 L (136-145) mmol/L Potassium 5.3 H (3.5-5.1) mmol/L Chloride 106 (98-107) mmol/L Carbon Dioxide 19 L (21-32) mmol/L BUN 81 H (6-23) mg/dl Creatinine 2.36 H (0.6-1.4) mg/dl Glucose 141 H (70-99(Fasting)) mg/dl Calcium 8.2 L (8.5-10.1) mg/dl Intake and Output 08/28/21 08/29/21 08/29/21 22:59 06:59 14:59 Intake Total 200 / 1575 240 / 1575 Output Total 400 / 900 350 / 900 Balance -200 / 675 -110 / 675 Intake: Oral 200 / 980 240 / 980 Output: Urine 400 / 900 350 / 900 Other: Weight 82.6 kg Weight Measurement Method Built in [facility]
[2021-08-29] MEDS: DOCUSATE SODIUM 100 MG CAP PO SCH ×2 (08:39→21:02)
[2021-08-29] MEDS: RIVAROXABAN 2.5 MG TAB PO SCH (08:40)
[2021-08-29] MEDS: ROSUVASTATIN CALCIUM 5 MG TAB PO SCH (08:40)
[2021-08-29] MEDS: SODIUM BICARBONATE 650 MG TAB PO SCH ×2 (08:40→21:03)
[2021-08-29] MEDS: ASCORBIC ACID 500 MG TAB PO SCH (08:41)
[2021-08-29] MEDS: ZINC SULFATE 220 MG CAPSULE PO SCH (08:41)
[2021-08-29] MEDS: CHOLECALCIFEROL 400 UNITS 10 MCG TAB PO SCH (08:42)
[2021-08-29] MEDS: FOLIC ACID 400 MCG TAB PO SCH (08:43)
[2021-08-29] MEDS: ASPIRIN 81 MG ECTAB PO SCH (08:43)
[2021-08-29] MEDS: EZETIMIBE 10 MG TABLET PO SCH (08:44)
[2021-08-29] MEDS: CYANOCOBALAMIN (B-12) 500 MCG TABLET PO SCH (08:44)
[2021-08-29] MEDS: TAMSULOSIN HCL 0.4 MG CAP PO SCH (08:44)
[2021-08-29] MEDS: NIFEdipine EXTENDED REL 30 MG TABCR PO SCH (08:52)
[2021-08-29] MEDS: carvediloL 12.5 MG TAB PO SCH ×2 (08:52→21:03)
[2021-08-29] MEDS: NITROGLYCERIN 0.4 MG/HR PATCH TD SCH (08:52)
[2021-08-29] MEDS: hydrALAZINE TAB 50 MG TAB PO SCH ×3 (08:53→21:02)
[2021-08-29 09:11] LABS: Ferritin 84.7 ng/ml (8-388)
[2021-08-29 09:14] LABS: Calcium 8.1 mg/dl (8.5-10.1); Creatinine Clr Calc Pharmacy 25.5 ml/min; Est GFR (African American) 31.6 ml/min; Est GFR (Non-African American) 27.2 ml/min; Phosphorus 4.2 mg/dl (2.5-4.9); Potassium 4.8 mmol/L (3.5-5.1)
--- NOTE | 2021-08-29 09:34 | Nephrology Progress Note ---
Date of Service August 29, 2021 Assessment & Plan (1) DILIP (acute kidney injury): Plan: Clinical presentation consistent with prerenal physiology associated with dehydration and some component of right heart failure w/ possible underlying pulmonary hypertension. Volume status reasonable at this time. I/O's slightly positive with Bumex 1 mg IV provided yesterday but not completely documented. Weight notably down. Will provide additional 1 mg IV Bumex this AM. Goal will be to encourage even or slightly negative fluid balance. Non-oliguric. Electrolytes are normal. Creatinine improved. Continue to hold losartan and spironolactone for now. Document I/O's. (2) Chronic kidney disease: Plan: Baseline creatinine 1.9-2.0 mg/dL. Followed at [facility] office. Medications are currently appropriately dosed for kidney function. Close outpatient follow up will be arranged at discharge. (3) BPH w urinary obs/LUTS: Plan: Records from Dr. Macias have been requested. No change in therapy. Remains on Tamsulosin. Voiding without difficulty at this time. (4) Chronic diastolic (congestive) heart failure: Plan: Plan of care reviewed with Dr. Carranza yesterday. Continue diuretics to encourage even to slightly negative fluid balance. Admission and Anticipated Discharge Date Admission Date: August 27, 2021 Subjective No acute events overnight. Carter was resting comfortably in his bedside chair this AM. He feels well. Appetite still not great. Breathing comfortably. No chest pain. No palpitations. Reports some response to diuretics yesterday. Carter feels that edema is his legs has been stable for a long time. He denies any added signs of fluid retention. Review of Systems Review of Systems: All systems reviewed & are unremarkable except as noted in HPI & below Physical Exam Constitutional: + frail appearing; no acute distress Eyes: no scleral abnormality and no corneal abnormality ENMT: Ears: + hearing impairment Mouth: no oral mucosal abnormality and oral mucous membranes not dry Neck: normal visual inspection and trachea midline Respiratory: normal respiratory effort Auscultation: lungs clear to auscultation bilaterally Cardiovascular: Rate/Rhythm: regular rate Heart Sounds: normal S1, normal S2 and + murmur Extremities: + edema and + varicosities Musculoskeletal: Extremities: no cyanosis and no clubbing Skin: normal turgor; no lesions Neurologic: Motor/Sensory: no tremor and no asterixis Psychiatric: Orientation: alert and oriented x 3 Results & Data ([facility]) Vital Signs (Past 12 Hours) Vital Signs Temp Pulse Pulse Resp BP Pulse Ox Pulse Ox 08/29/21 08:55 68 128/69 08/29/21 08:49 68 133/58 L 08/29/21 07:41 36.5 C 59 L 18 108/51 L 95 08/29/21 06:13 56 L 08/29/21 04:04 36.5 C 62 18 99/47 L 96 08/29/21 01:35 97 08/28/21 23:49 36.8 C 63 18 128/64 95 08/28/21 23:00 52 L Laboratory Results Laboratory Results - last 24 hr 08/28/21 08/28/21 08/28/21 10:50 16:57 19:34 WBC RBC Hgb Hct MCV MCH MCHC RDW Std Deviation RDW Coeff of Dmitriy Plt Count MPV Sodium 132 L Potassium 5.3 H Chloride 106 Carbon Dioxide 19 L Anion Gap 7 BUN 81 H Creatinine 2.36 H Est Cr Clr Drug Dosing 23.6 Est GFR ( Amer) 28.0 Est GFR (Non-Af Amer) 24.2 BUN/Creatinine Ratio 34.3 H Glucose 141 H POC Glucose Calcium 8.2 L Phosphorus Iron TIBC Unsaturated IBC Transferrin % Sat Ferritin Troponin I High Sens 1795.9 H* 1906.2 H* Albumin 08/28/21 08/29/21 08/29/21 20:13 07:26 07:26 WBC 7.82 RBC 3.40 L Hgb 9.8 L Hct 29.5 L MCV 86.8 MCH 28.8 MCHC 33.2 RDW Std Deviation 52.8 H RDW Coeff of Dmitriy 16.9 H Plt Count 244 MPV 9.9 Sodium 134 L Potassium 4.8 Chloride 108 H Carbon Dioxide 21 Anion Gap 5 BUN 75 H Creatinine 2.14 H Est Cr Clr Drug Dosing 25.5 Est GFR ( Amer) 31.6 Est GFR (Non-Af Amer) 27.2 BUN/Creatinine Ratio 35.0 H Glucose 99 POC Glucose 134 H Calcium 8.1 L Phosphorus 4.2 Iron 18 L TIBC 260 Unsaturated IBC 242 Transferrin % Sat 7 L Ferritin 84.7 Troponin I High Sens Albumin 3.0 L PG Care Time/CCT Total # of Minutes Spent Total Time Spent with Patient: Total time spent is greater than 50% in coordination of care (as documented) at patient's floor/unit and/or counseling patient: Coding Level of Care Code 65803 Subseq Hosp Care Lvl 3 Diagnoses DILIP (acute kidney injury) N17.9 Chronic kidney disease N18.9 BPH w urinary obs/LUTS N40.1; N13.8 Chronic diastolic (congestive) heart failure I50.32
[2021-08-29] MEDS ORDERED: BUMETANIDE 1 MG in SYRINGE 0 ML IV ONE (10:00)
[2021-08-29] MEDS: Heparin IV Adult Wt-Based Standard *NO* Bolus Protocol IV SCH ×2 (14:31→14:32)
--- NOTE | 2021-08-29 17:15 | Hospitalist Progress Note ---
Date of Service August 29, 2021 Assessment & Plan (1) Shortness of breath: Plan: per Dr. Motta's notes with addendum: ASSESSMENT AND PLAN: 1. This is an 86-year-old male who presents with shortness of breath The patient has coal stove at home and his CO alarm was going on, but his carboxyhemoglobin is okay. Currently, he is feeling better. Denies any shortness of breath. Chest x-ray was okay. The patient has history of diastolic congestive heart failure, has lower extremity edema, on Bumex at home. We will monitor in the hospital in QVPN. We will get an echocardiogram. Continue oxygenation for now. - newly diagnosed CHF, Systolic and Diastolic, Acute Exacerbation another Bumex 1 g IV given crea improved from 2.3 to 2.1 monitor closely 2. Acute kidney injury, on chronic kidney disease stage III. Baseline creatinine around 1.8 to 2.0. Today creatinine of 2.7 and also metabolic acidosis. Holding losartan, Bumex, and spironolactone. 5/3 monitor crea while on IV diuretics HCO3 PO added Nephro on board 3. Hyponatremia and hyperkalemia. Na 134 K 4.8 monitor closely Nephro on board 4. Troponin high sensitivity elevation. Possible NSTEMI The patient denies any chest pain. - Echo: no wall motion abnormalities Troponin elevation likely from ESRD, CHF? - Heparin drip started 5. History of coronary artery disease, status post CABG. Continue his home medication of aspirin, Coreg, nitropatch, rosuvastatin 6. History of benign prostatic hypertrophy. Seems to have recently had prostate procedure. On Flomax. Monitor for any urinary retention. 7. Hypertension, on Coreg, hydralazine. nifedipine, nitropatch. Holding losartan, spironolactone 8. Hyperlipidemia, on statin. 9. Peripheral vascular disease: On aspirin, statin. 10. Deep venous thrombosis prophylaxis: Xarelto transitioned to Heparin drip DISPOSITION: Closely monitor in QVPN. PT/OT prior discharge. Social service to help with discharge planning. The make sure home is safe for discharge as there was question of CO levels been high at home.. Level 1 full code as per my discussion with the patient. Admission and Anticipated Discharge Date Admission Date: August 27, 2021 Subjective ff up for newly diagnosed CHF, etc seen resting in bed, comfortable states breathing is ok no chest pain, palpitations, dizziness no problems with urination no other symptoms Review of Systems Review of Systems: all noted and negative except for above Physical Exam Physical Exam: General- oriented x 2, not in distress, speaks in sentences with no effort or accessory muscle use Eyes- anicteric Neck- no JVD Lungs- clear BS bilaterally, no rales/wheezes Heart- normal rate, regular rhythm; no murmurs Abdomen- normal bowel sounds, nondistended, soft, nontender Extremities-(+) grade 1-2 lower extremity edema, no calf tenderness Neuro- alert, oriented x 2; no gross focal neurologic deficits Skin- warm & dry Results & Data Results & Data ([facility]) Vital Signs (Past 12 Hours) Vital Signs Temp Pulse Pulse Resp BP Pulse Ox 08/29/21 15:08 36.5 C 63 18 103/49 L 95 08/29/21 14:36 56 L 08/29/21 11:06 36.5 C 66 18 120/65 93 08/29/21 08:55 68 128/69 08/29/21 08:49 68 133/58 L 08/29/21 07:41 36.5 C 59 L 18 108/51 L 95 08/29/21 06:13 56 L all noted and reviewed including below
[2021-08-29 19:56] LABS: Partial Thromboplastin Ratio 1.1; Partial Thromboplastin Time 30.8 Seconds (21.0-31.0)
[2021-08-29] MEDS ORDERED: HEPARIN SODIUM/DEXTROSE 25,000 UNITS/500 ML BAG IV SCH (21:00)
[2021-08-30 00:03] LABS: Basophils # (auto) 0.01 K/uL (0-0.2); Basophils % (auto) 0.1 %; Eosinophils # (auto) 1.06 K/uL (0-0.5); Hematocrit (blood only) 28.8 % (42-52); Hemoglobin 9.6 g/dL (14.0-18.0); Immature Granulocytes # (auto) 0.04 K/uL (0.00-0.02); Immature Granulocytes % (auto) 0.5 %; Lymphocytes # (auto) 1.01 K/uL (1.2-3.4); Lymphocytes % (auto) 11.4 %; Mean Corpuscular Hemoglobin 29.2 pg (25-34); Mean Corpuscular Hgb Conc 33.3 g/dL (32-36); Mean Corpuscular Volume 87.5 fL (80-100); Mean Platelet Volume 9.8 fL (7.4-10.4); Monocytes # (auto) 0.55 K/uL (0.11-0.59); Monocytes % (auto) 6.2 %; Neutrophils % (auto) 69.8 %; Platelet Count 273 K/uL (130-400); RDW Coefficient of Variation 16.9 % (11.5-14.5); RDW Standard Deviation 52.9 fL (36.4-46.3); Red Blood Count 3.29 M/uL (4.7-6.1); White Blood Count 8.87 K/uL (4.8-10.8)
[2021-08-30 03:31] LABS: Hematocrit (blood only) 30.9 % (42-52); Hemoglobin 10.2 g/dL (14.0-18.0); Mean Corpuscular Hemoglobin 28.7 pg (25-34); Mean Corpuscular Volume 86.8 fL (80-100); Mean Platelet Volume 9.8 fL (7.4-10.4); Platelet Count 291 K/uL (130-400); RDW Coefficient of Variation 16.9 % (11.5-14.5); RDW Standard Deviation 52.4 fL (36.4-46.3); Red Blood Count 3.56 M/uL (4.7-6.1); White Blood Count 8.73 K/uL (4.8-10.8)
[2021-08-30 03:38] LABS: Albumin Level 3.2 gm/dl (3.4-5.0); BUN Creatinine Ratio 36.5 (10-20); Calcium 8.3 mg/dl (8.5-10.1); Creatinine Clr Calc Pharmacy 28.4 ml/min; Est GFR (Non-African American) 31.1 ml/min; Phosphorus 3.6 mg/dl (2.5-4.9); Potassium 4.5 mmol/L (3.5-5.1)
[2021-08-30 03:46] LABS: Partial Thromboplastin Ratio 4.7
[2021-08-30 03:58] LABS: Partial Thromboplastin Time 128.8 Seconds (21.0-31.0)
--- NOTE | 2021-08-30 07:31 | Cardiology Progress Note ---
Date of Service August 30, 2021 Assessment & Plan (1) Chronic diastolic (congestive) heart failure: (2) HFrEF (heart failure with reduced ejection fraction): (3) Cardiomyopathy: (4) Abnormal EKG: (5) Coronary artery disease: (6) FH: CABG (coronary artery bypass surgery): (7) PAD (peripheral artery disease): (8) Carotid disease, bilateral: (9) Chronic kidney disease: Plan: 86 year old male with history of HFpEF, CKD stage 3, significant PAD and carotid stenosis s/p endarterectomy- follows with [facility] vascular, and CABG x4 in 1995- presenting to [facility] due to acute SOB initially felt to be in the setting of carbon monoxide exposure. Found to have new onset HFrEF with an abnormal EKG and WMA on echo. It is likely patient does have worsening CAD given vascular history. Recent outpatient nuclear stress results in june consistent with echo findings. Nuc suggestive of infarct without ischemia. Currently stable from a cardiac standpoint- asymptomatic. No concerns of chest pain or sob. 1. CT of the chest without evidence of hilar mass. Right hilar fullness due to prominent pulmonary artery. CT demonstrates interstitial edema. Renal function back to baseline with the addition of IV Bumex, continue IV Bumex 1 mg daily- trend renal function and replace electrolytes as necessary. Appreciate nephrology input. 2. 1500 cc fluid restriction, strict I&Os, daily weights. 3. Patient on vascular dose of DOAC- given labile renal function and new HFrEF with EKG changes, previous recommendation of transitioning for Xarelto to IV heparin. PTT elevated. CV findings seem to be chronic. Okay to DC heparin infusion and restart xarelto this evening. Patient would be high risk for cardiac cath. Possible troponin elevation due to renal dysfunction and CHF. 4. Losartan restarted per nephro. Aldactone remains on hold. Continued on hydralazine 50 mg 3 times daily. 5. 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 Chavira- results scanned into [employer] and reviewed. Case discussed with Dr. Carranza Admission and Anticipated Discharge Date Admission Date: August 27, 2021 Supervising Physician Co-Signing Physician Notes 86-year-old patient seen and examined at bedside. Receiving 1 mg IV Bumex daily per nephrology. Creatinine trending downward. Denies chest pain or shortness of breath. No orthopnea, PND. Patient is hard of hearing and a poor historian PE: VSS with borderline hypotension. General: NAD, poor historian. Heart: Regular, normal S1-S2. 1/6 systolic ejection murmur heard best at the right second intercostal space. Lungs: Diminished breath sounds without rales, rhonchi, or wheeze. Abdomen soft nontender no rebound or guarding. Extremities demonstrate 2+ bilateral pretibial edema. A/P: Agree with above AP history, physical exam, assessment and plan with the following additions. Complex 86-year-old patient presents with possible carbon monoxide exposure and elevated troponin. Preliminary review of outpatient records suggest the anterior lateral wall motion abnormality is chronic. Discontinue IV heparin. Resume low-dose (PVD dose) Xarelto. Continue cautious diuresis. Receiving 1 mg Bumex daily. Nephrology input appreciated. Follow daily weight, fluid balance, GFR, and electrolytes. Continue outpatient cardiovascular medications including aspirin, carvedilol, and rosuvastatin. Losartan restarted by nephrology. Hydralazine reduced to 50 mg 3 times daily due to intermittent episodes of hypotension. Monitor blood pressure closely. Subjective Complex 86-year-old patient presents with possible carbon monoxide exposure and elevated troponin. ECG with lateral ST abnormality. Troponins elevated. P atient chronically treated with low-dose Xarelto due to peripheral vascular disease. X-ray with evidence of possible right hilar mass- CT of the chest showed no evidence of mass, but dilation of the central pulmonary arteries (? pulm HTN). 2D transthoracic echocardiogram demonstrating anterior lateral wall motion abnormality- consistent with recent outpatient nuclear stress. Significant risk factors, elevated troponin, abnormal ECG and echocardiogram. Patient is not a strong candidate for cardiac catheterization due to acute on chronic renal insufficiency. Renal function improving with IV Bumex. Patient started on IV heparin in place of Xarelto yesterday. Outside cardiology records obtained. Nuclear stress 07/27/2021: LV wall motion hypokinesis of the apical, inferior, and lateral rice. LVEF mildly reduced. Medium to large sized moderate severity fixed MPI defect of the mid to distal anterior, anterior/septal, inferior, and entire apical and lateral myocardium. Suggestive of large infarct with minimal ellen-infarct ischemia and possible artifact. Loree scan ekg negative for myocardial ischemia Labs: hemoglobin now >10 (10.2)- patient receiving IV iron, BMP with improvement in sodium and scr- scr now within baseline at 1.92, Troponins 2093>>[id number]>>[id number]>>[id number] Upon entrance into the room patient sleeping bed, wakes easily. Notes an impro vement in his lower extremity edema, but not back to his baseline. No chest pain, no shortness of breath with activity. No orthopnea. States that he did not sleep well last night due to back discomfort. PTT elevated on IV heparin infusion. Tele: SR 50-60 bpm Review of Systems Review of Systems: All systems reviewed & are unremarkable except as noted in HPI & below Physical Exam Physical Exam: General: No acute distress. A+Ox3. HEENT: Normocephalic. Atraumatic. Conjunctiva and sclera clear. NECK: No carotid bruits. No JVD. Carotid upstrokes are brisk. Heart: RRR. S1 and S2 noted without murmur, rubs, gallops. Lungs: Clear to auscultation. No wheezes, rhonchi, rales. Abdomen: Normal bowel sounds. Soft. Nontender. No masses or organomegaly. No abdominal bruits. Extremities: +1 BLLE edema, pitting. Pulses: radial=2/4, posterior tibial=2/4, dorsalis pedis = 2/4. NEURO: No focal deficits. PSYCH: Normal. Results & Data ([facility]) Vital Signs (Past 12 Hours) Vital Signs Temp Pulse Pulse Resp BP Pulse Ox Pulse Ox 08/30/21 06:45 36.7 C 59 L 18 149/55 H 96 08/30/21 06:27 62 08/30/21 04:04 36.6 C 57 L 18 146/65 H 96 08/30/21 01:00 98 08/29/21 23:26 36.5 C 70 18 128/53 L 92 08/29/21 23:00 70 08/29/21 21:00 59 L 08/29/21 19:36 36.4 C L 59 L 18 129/61 97 (1) Chronic kidney disease Chronic kidney disease stage: unspecified stage Qualified Code(s): N18.9 - Chronic kidney disease, unspecified
[2021-08-30] MEDS: EZETIMIBE 10 MG TABLET PO SCH (08:31)
[2021-08-30] MEDS: SODIUM BICARBONATE 650 MG TAB PO SCH ×2 (08:32→19:50)
[2021-08-30] MEDS: DOCUSATE SODIUM 100 MG CAP PO SCH ×2 (08:32→19:51)
[2021-08-30] MEDS: FOLIC ACID 400 MCG TAB PO SCH (08:34)
[2021-08-30] MEDS: ZINC SULFATE 220 MG CAPSULE PO SCH (08:34)
[2021-08-30] MEDS: ASCORBIC ACID 500 MG TAB PO SCH (08:34)
[2021-08-30] MEDS: ROSUVASTATIN CALCIUM 5 MG TAB PO SCH (08:34)
[2021-08-30] MEDS: NIFEdipine EXTENDED REL 30 MG TABCR PO SCH (08:35)
[2021-08-30] MEDS: CYANOCOBALAMIN (B-12) 500 MCG TABLET PO SCH (08:36)
[2021-08-30] MEDS: CHOLECALCIFEROL 400 UNITS 10 MCG TAB PO SCH (08:36)
[2021-08-30] MEDS: TAMSULOSIN HCL 0.4 MG CAP PO SCH (08:36)
[2021-08-30] MEDS: ASPIRIN 81 MG ECTAB PO SCH (08:38)
[2021-08-30] MEDS: hydrALAZINE TAB 50 MG TAB PO SCH ×3 (08:43→19:50)
[2021-08-30] MEDS: carvediloL 12.5 MG TAB PO SCH ×2 (08:44→19:51)
[2021-08-30] MEDS: NITROGLYCERIN 0.4 MG/HR PATCH TD SCH (08:44)
--- NOTE | 2021-08-30 09:07 | Electrocardiogram Report ---
Test Reason : Blood Pressure : / mmHG Vent. Rate : 064 BPM Atrial Rate : 064 BPM P-R Int : 182 ms QRS Dur : 100 ms QT Int : 418 ms P-R-T Axes : 051 022 174 degrees QTc Int : 431 ms Normal sinus rhythm Possible Left atrial enlargement Possible Anterior infarct , age undetermined Marked ST abnormality, possible lateral subendocardial injury Abnormal ECG No previous ECGs available Confirmed by Ventura Segura ([id number]) on 08/30/2021 9:07:07 AM Referred By: REFERRED SELF Confirmed By:Ventura Segura
[2021-08-30] MEDS ORDERED: Nursing to Pharmacy Communication SCH (09:15)
[2021-08-30] MEDS: IRON SUCROSE 200 MG in 0.9 % SODIUM CHLORIDE 100 ML IV SCH (09:17)
[2021-08-30] MEDS: ACETAMINOPHEN 325 MG TAB PO PRN ×2 (09:20→19:49)
--- NOTE | 2021-08-30 10:04 | Nephrology Progress Note ---
Date of Service August 30, 2021 Assessment & Plan (1) DILIP (acute kidney injury): Plan: Clinical presentation consistent with prerenal physiology associated with dehydration and some component of right heart failure. Volume status acceptable. I/O's slightly negative with Bumex 1 mg IV provided yesterday. Weight slightly up. Will provide additional 1 mg IV Bumex this AM. Plan to resume 1 mg PO daily on discharge. Goal is to encourage even or slightly negative fluid balance. Non- oliguric. Electrolytes are normal. Creatinine now at baseline. Continue to hold spironolactone for now. Will restart losartan 50 mg daily. Document I/O's. (2) Chronic kidney disease: Plan: Baseline creatinine 1.9-2.0 mg/dL. Follows with me in the [facility] office as outpatient. Medications are currently appropriately dosed for kidney function. Close outpatient follow up will be arranged at discharge. (3) BPH w urinary obs/LUTS: Plan: Remains on Tamsulosin. Voiding without difficulty at this time. (4) Chronic diastolic (congestive) heart failure: Plan: Continue diuretics to encourage even to slightly negative fluid balance. (5) Anemia in chronic kidney disease: Plan: IV venofer 200 mg daily started while inpatient. First dose today. Tsat 7. Hemoglobin >10. JAYLEN therapy deferred. If Carter is discharged, I will coordinate additional iron replacement as an outpatient as needed. Admission and Anticipated Discharge Date Admission Date: August 27, 2021 Subjective No acute events overnight. Carter hopes to be discharged home soon. He states that he feels well. Uncomfortable in hospital bed. Some exacerbation of chronic back pain. Breathing comfortable. Denies any concerns at this time. Review of Systems Review of Systems: All systems reviewed & are unremarkable except as noted in HPI & below Physical Exam Constitutional: + frail appearing; no acute distress Eyes: no scleral abnormality and no corneal abnormality ENMT: Ears: + hearing impairment Mouth: no oral mucosal abnormality and oral mucous membranes not dry Neck: normal visual inspection and trachea midline Respiratory: normal respiratory effort Auscultation: lungs clear to auscultation bilaterally Cardiovascular: Rate/Rhythm: regular rate Heart Sounds: normal S1, normal S2 and + murmur Extremities: + edema and + varicosities Musculoskeletal: Extremities: no cyanosis and no clubbing Skin: normal turgor; no lesions Neurologic: Motor/Sensory: no tremor and no asterixis Psychiatric: Orientation: alert and oriented x 3 Results & Data ([facility]) Vital Signs (Past 12 Hours) Vital Signs Temp Pulse Pulse Resp BP Pulse Ox Pulse Ox 08/30/21 08:42 72 148/67 H 08/30/21 06:45 36.7 C 59 L 18 149/55 H 96 08/30/21 06:27 62 08/30/21 04:04 36.6 C 57 L 18 146/65 H 96 08/30/21 01:00 98 08/29/21 23:26 36.5 C 70 18 128/53 L 92 08/29/21 23:00 70 Laboratory Results Laboratory Results - last 24 hr 08/29/21 08/29/21 08/29/21 19:31 23:33 23:33 WBC Cancelled 8.87 RBC Cancelled 3.29 L Hgb Cancelled 9.6 L Hct Cancelled 28.8 L MCV Cancelled 87.5 MCH Cancelled 29.2 MCHC Cancelled 33.3 RDW Std Deviation Cancelled 52.9 H RDW Coeff of Dmitriy Cancelled 16.9 H Plt Count Cancelled 273 MPV Cancelled 9.8 Immature Gran % (Auto) Cancelled 0.5 Neut % (Auto) Cancelled 69.8 Lymph % (Auto) Cancelled 11.4 Payette % (Auto) Cancelled 6.2 Eos % (Auto) Cancelled 12.0 Baso % (Auto) Cancelled 0.1 Neut # (Auto) Cancelled 6.20 Lymph # (Auto) Cancelled 1.01 L Payette # (Auto) Cancelled 0.55 Eos # (Auto) Cancelled 1.06 H Baso # (Auto) Cancelled 0.01 Immature Gran # (Auto) Cancelled 0.04 H Absolute Nucleated RBC Cancelled Nucleated RBC % (auto) Cancelled Neutrophils % (Manual) Cancelled Band Neutrophils % Cancelled Lymphocytes % (Manual) Cancelled Prolymphocyte % Cancelled Reactive Lymphs % (Man) Cancelled Monocytes % (Manual) Cancelled Eosinophils % (Manual) Cancelled Basophils % (Manual) Cancelled Metamyelocytes % (Man) Cancelled Myelocytes % (Man) Cancelled Promyelocytes % (Man) Cancelled Blast Cells % (Manual) Cancelled Plasma Cell % (Manual) Cancelled Other Cells % Cancelled Nucleated RBC % Cancelled Neutrophils # (Manual) Cancelled Band Neutrophils # Cancelled Total Absolute Neuts Cancelled Lymphocytes # (Manual) Cancelled Prolymphocyte # Cancelled Reactive Lymphs # Cancelled Total Abs Lymphocytes Cancelled Monocytes # (Manual) Cancelled Eosinophils # (Manual) Cancelled Basophils # (Manual) Cancelled Metamyelocytes # (Man) Cancelled Myelocytes # (Manual) Cancelled Promyelocytes # (Man) Cancelled Blast Cells # (Man) Cancelled Plasma Cell # (Manual) Cancelled Other Cells # Cancelled Nucleated RBCs # (Man) Cancelled Hypersegmented Neuts Cancelled Hyposegmented Neuts Cancelled Hypogranular Neuts Cancelled Large Granular Lymphs Cancelled # Lrg Granular Lymphs Cancelled Hairy Cells Cancelled Smudge Cells Cancelled Toxic Granulation Cancelled Toxic Vacuolation Cancelled Dohle Bodies Cancelled Rafia Rods Cancelled Platelet Estimate Cancelled Hypogranular Platelets Cancelled Clumped Platelets Cancelled Giant Platelets Cancelled Platelet Satelliting Cancelled RBC Morphology Cancelled Polychromasia Cancelled Hypochromasia Cancelled Poikilocytosis Cancelled Basophilic Stippling Cancelled Anisocytosis Cancelled Microcytosis Cancelled Macrocytosis Cancelled Spherocytes Cancelled Pappenheimer Bodies Cancelled Sickle Cells Cancelled Target Cells Cancelled Tear Drop Cells Cancelled Ovalocytes Cancelled Stomatocytes Cancelled Vizcarra-Piedra Aguza Bodies Cancelled Echinocytes Cancelled Acanthocytes (Spur) Cancelled Rouleaux Cancelled RBC Agglutinates Cancelled Schistocytes Cancelled RBC Morph Comment Cancelled Sezary Cell Cancelled PT 11.0 INR 1.0 APTT 30.8 PTT Ratio 1.1 Sodium Potassium Chloride Carbon Dioxide Anion Gap BUN Creatinine Est Cr Clr Drug Dosing Est GFR ( Amer) Est GFR (Non-Af Amer) BUN/Creatinine Ratio Glucose Calcium Phosphorus Albumin 08/30/21 08/30/21 08/30/21 03:06 03:06 03:06 WBC 8.73 RBC 3.56 L Hgb 10.2 L Hct 30.9 L MCV 86.8 MCH 28.7 MCHC 33.0 RDW Std Deviation 52.4 H RDW Coeff of Dmitriy 16.9 H Plt Count 291 MPV 9.8 Immature Gran % (Auto) Neut % (Auto) Lymph % (Auto) Payette % (Auto) Eos % (Auto) Baso % (Auto) Neut # (Auto) Lymph # (Auto) Payette # (Auto) Eos # (Auto) Baso # (Auto) Immature Gran # (Auto) Absolute Nucleated RBC Nucleated RBC % (auto) Neutrophils % (Manual) Band Neutrophils % Lymphocytes % (Manual) Prolymphocyte % Reactive Lymphs % (Man) Monocytes % (Manual) Eosinophils % (Manual) Basophils % (Manual) Metamyelocytes % (Man) Myelocytes % (Man) Promyelocytes % (Man) Blast Cells % (Manual) Plasma Cell % (Manual) Other Cells % Nucleated RBC % Neutrophils # (Manual) Band Neutrophils # Total Absolute Neuts Lymphocytes # (Manual) Prolymphocyte # Reactive Lymphs # Total Abs Lymphocytes Monocytes # (Manual) Eosinophils # (Manual) Basophils # (Manual) Metamyelocytes # (Man) Myelocytes # (Manual) Promyelocytes # (Man) Blast Cells # (Man) Plasma Cell # (Manual) Other Cells # Nucleated RBCs # (Man) Hypersegmented Neuts Hyposegmented Neuts Hypogranular Neuts Large Granular Lymphs # Lrg Granular Lymphs Hairy Cells Smudge Cells Toxic Granulation Toxic Vacuolation Dohle Bodies Rafia Rods Platelet Estimate Hypogranular Platelets Clumped Platelets Giant Platelets Platelet Satelliting RBC Morphology Polychromasia Hypochromasia Poikilocytosis Basophilic Stippling Anisocytosis Microcytosis Macrocytosis Spherocytes Pappenheimer Bodies Sickle Cells Target Cells Tear Drop Cells Ovalocytes Stomatocytes Vizcarra-Piedra Aguza Bodies Echinocytes Acanthocytes (Spur) Rouleaux RBC Agglutinates Schistocytes RBC Morph Comment Sezary Cell PT INR APTT 128.8 H* PTT Ratio 4.7 Sodium 135 L Potassium 4.5 Chloride 106 Carbon Dioxide 21 Anion Gap 8 BUN 70 H Creatinine 1.92 H Est Cr Clr Drug Dosing 28.4 Est GFR ( Amer) 36.0 Est GFR (Non-Af Amer) 31.1 BUN/Creatinine Ratio 36.5 H Glucose 111 H Calcium 8.3 L Phosphorus 3.6 Albumin 3.2 L PG Care Time/CCT Total # of Minutes Spent Total Time Spent with Patient: Total time spent is greater than 50% in coordination of care (as documented) at patient's floor/unit and/or counseling patient: Coding Level of Care Code 28986 Subseq Hosp Care Lvl 3 Diagnoses DILIP (acute kidney injury) N17.9 Chronic kidney disease N18.9 Chronic kidney disease stage: unspecified stage BPH w urinary obs/LUTS N40.1; N13.8 Chronic diastolic (congestive) heart failure I50.32 Anemia in chronic kidney disease N18.9; D63.1 (1) Chronic kidney disease Chronic kidney disease stage: unspecified stage Qualified Code(s): N18.9 - Chronic kidney disease, unspecified
[2021-08-30] MEDS ORDERED: BUMETANIDE 1 MG in SYRINGE 0 ML IV ONE (10:30)
[2021-08-30] MEDS: LOSARTAN POTASSIUM 50 MG TAB PO SCH (10:59)
--- NOTE | 2021-08-30 13:43 | Electrocardiogram Report ---
Test Reason : Blood Pressure : / mmHG Vent. Rate : 051 BPM Atrial Rate : 163 BPM P-R Int : 000 ms QRS Dur : 096 ms QT Int : 424 ms P-R-T Axes : 032 023 177 degrees QTc Int : 390 ms Poor data quality, interpretation may be adversely affected Sinus bradycardia Abnormal ECG When compared with ECG of 27-AUG-2021 18:40, (unconfirmed) HR has decreased Confirmed by Ventura Segura ([id number]) on 08/30/2021 1:42:44 PM Referred By: REFERRED SELF Confirmed By:Ventura Segura
--- NOTE | 2021-08-30 13:58 | Electrocardiogram Report ---
Test Reason : Blood Pressure : / mmHG Vent. Rate : 052 BPM Atrial Rate : 052 BPM P-R Int : 200 ms QRS Dur : 102 ms QT Int : 448 ms P-R-T Axes : 010 012 167 degrees QTc Int : 416 ms Sinus bradycardia Possible Left atrial enlargement Marked ST abnormality, possible lateral subendocardial injury Abnormal ECG When compared with ECG of 28-AUG-2021 06:18, (unconfirmed) No significant change Confirmed by Ventura Segura ([id number]) on 08/30/2021 1:57:41 PM Referred By: REFERRED SELF Confirmed By:Ventura Segura
--- NOTE | 2021-08-30 15:39 | Electrocardiogram Report ---
Test Reason : Blood Pressure : / mmHG Vent. Rate : 064 BPM Atrial Rate : 064 BPM P-R Int : 182 ms QRS Dur : 100 ms QT Int : 422 ms P-R-T Axes : 086 101 -89 degrees QTc Int : 435 ms Normal sinus rhythm Cannot rule out lead reversal Rightward axis Abnormal ECG When compared with ECG of 28-AUG-2021 11:40, (unconfirmed) Questionable change in QRS axis Non-specific change in ST segment in Inferior leads ST less depressed in Lateral leads T wave inversion now evident in Inferior leads Confirmed by Ventura Segura ([id number]) on 08/30/2021 3:38:39 PM Referred By: REFERRED SELF Confirmed By:Ventura Segura
--- NOTE | 2021-08-30 17:18 | Hospitalist Progress Note ---
Date of Service August 30, 2021 Assessment & Plan (1) Shortness of breath: Plan: Per Admitting Shift Patient is an 86 yr male who presents with shortness of breath. The patient has coal stove at home and his CO alarm was going on, but his carboxyhemoglobin is okay. Currently, he is feeling better. Denies any shortness of breath. Chest x-ray was okay. The patient has history of diastolic congestive heart failure, has lower extremity edema, on Bumex at home. We will monitor in the hospital in med [employer]. We will get an echocardiogram. Continue oxygenation for now. Acute CHF, Systolic and Diastolic, Acute Exacerbation --CT :Small bilateral pleural effusions. Mild interstitial pulmonary edema. --ECHO: (Renal systolic function is mildly reduced. EF 45 to 50%. Moderate sized anterior and lateral wall motion abnormality with hypokinesis to akinesis of the segments. Moderate aortic valve sclerosis without stenosis. Mild aortic regurgitation. Mild mitral regurgitation. Mild tricuspid regurgitation. Grade 3 diastolic dysfunction. --Received IV Bumex Plan to restart p.o. Bumex tomorrow Monitor I's and O's, daily weight, electrolytes, renal function Continue fluid restriction Appreciate cardiology, nephrology input Needs follow-up with cardiology upon discharge Hold Aldactone for now Acute kidney injury on CKD III Baseline Cr 1.9 to 2.0. Metabolic Acidosis Creatinine now at baseline Hold Aldactone for now Restarted losartan as per nephrology Follow-up with nephrology upon discharge Also on sodium bicarbonate Hyponatremia Hyperkalemia. Improved Monitor Troponin high sensitivity elevation. Possible NSTEMI Patient denies any chest pain. Troponin elevation likely from ESRD, CHF? IV Heparin discontinued H/O CAD S/P CABG Continue aspirin, Coreg, nitropatch, rosuvastatin BPH On Flomax Hypertension on Coreg, hydralazine. nifedipine Resumed losartan spironolactone held for now Decreased hydralazine to 50 mg 3 times daily Anemia of chronic kidney disease IV Venofer Hyperlipidemia on statin. Peripheral vascular disease: On aspirin, statin Also on Xarelto DVT Px: Xarelto Code Status Full Code DISPOSITION: PT/OT prior discharge Family requests Home PT referral Admission and Anticipated Discharge Date Admission Date: August 27, 2021 Subjective Patient is seen and examined at bedside States feeling much better today Less dyspnea Leg swelling continues to improve Discussed with patient's family at bedside Offers no other complaints Review of Systems Review of Systems: All systems reviewed & are unremarkable except as noted in Subjective Physical Exam Physical Exam: Physical Exam: Vitals signs as noted above General Appearance:Moderately built and nourished, no apparent distress Head: normocephalic, Atraumatic Eyes: normal inspection, EOMI Neck: supple, Trachea midline Respiratory/Chest: Normal breath sounds, CTA, No accessory muscle use Cardiovascular: S1, S2, No murmur Abdomen/GI:Soft, Non tender, Bowel sounds present Extremities/Musculoskeletal:normal inspection, B/L LE 1+ edema Neurologic/Psych:AAOX2, grossly no focal neurological deficits Skin: normal color, warm Results & Data Results & Data ([facility]) Vital Signs (Past 12 Hours) Vital Signs Temp Pulse Pulse Resp BP Pulse Ox 08/30/21 14:55 36.8 C 60 107/54 L 95 08/30/21 14:17 55 L 08/30/21 11:09 36.5 C 63 144/62 H 95 08/30/21 08:42 72 148/67 H 08/30/21 06:45 36.7 C 59 L 18 149/55 H 96 08/30/21 06:27 62 Laboratory Results Short CBC 08/29/21 08/29/21 08/30/21 Range/Units 23:33 23:33 03:06 WBC Cancelled 8.87 8.73 Hgb Cancelled 9.6 L 10.2 L Hct Cancelled 28.8 L 30.9 L Plt Count Cancelled 273 291 BMP 08/30/21 03:06 Sodium 135 L Potassium 4.5 Chloride 106 Carbon Dioxide 21 BUN 70 H Creatinine 1.92 H Glucose 111 H Calcium 8.3 L Liver Function 08/30/21 Range/Units 03:06 Albumin 3.2 L (3.4-5.0) gm/dl
[2021-08-30] MEDS: RIVAROXABAN 2.5 MG TAB PO SCH (19:52)
[2021-08-31 07:55] LABS: Basophils # (auto) 0.01 K/uL (0-0.2); Basophils % (auto) 0.1 %; Eosinophils % (auto) 11.3 %; Hematocrit (blood only) 31.2 % (42-52); Hemoglobin 10.2 g/dL (14.0-18.0); Immature Granulocytes # (auto) 0.06 K/uL (0.00-0.02); Immature Granulocytes % (auto) 0.8 %; Lymphocytes # (auto) 0.64 K/uL (1.2-3.4); Mean Corpuscular Hgb Conc 32.7 g/dL (32-36); Mean Corpuscular Volume 88.6 fL (80-100); Mean Platelet Volume 9.6 fL (7.4-10.4); Monocytes # (auto) 0.75 K/uL (0.11-0.59); Monocytes % (auto) 10.6 %; Neutrophils # (auto) 4.83 K/uL (1.4-6.5); Neutrophils % (auto) 68.2 %; Platelet Count 285 K/uL (130-400); RDW Coefficient of Variation 17.2 % (11.5-14.5); RDW Standard Deviation 53.5 fL (36.4-46.3); Red Blood Count 3.52 M/uL (4.7-6.1); White Blood Count 7.09 K/uL (4.8-10.8)
[2021-08-31 08:01] LABS: Partial Thromboplastin Ratio 1.1; Partial Thromboplastin Time 30.2 Seconds (21.0-31.0)
[2021-08-31] MEDS: LOSARTAN POTASSIUM 50 MG TAB PO SCH (08:09)
[2021-08-31] MEDS: RIVAROXABAN 2.5 MG TAB PO SCH (08:10)
[2021-08-31] MEDS: ROSUVASTATIN CALCIUM 5 MG TAB PO SCH (08:10)
[2021-08-31] MEDS: carvediloL 12.5 MG TAB PO SCH (08:10)
[2021-08-31] MEDS: NIFEdipine EXTENDED REL 30 MG TABCR PO SCH (08:10)
[2021-08-31] MEDS: CYCLOBENZAPRINE HCL 5 MG TAB PO PRN (08:10)
[2021-08-31] MEDS: DOCUSATE SODIUM 100 MG CAP PO SCH (08:10)
[2021-08-31] MEDS: ASCORBIC ACID 500 MG TAB PO SCH (08:11)
[2021-08-31] MEDS: FOLIC ACID 400 MCG TAB PO SCH (08:11)
[2021-08-31] MEDS: CHOLECALCIFEROL 400 UNITS 10 MCG TAB PO SCH (08:11)
[2021-08-31] MEDS: CYANOCOBALAMIN (B-12) 500 MCG TABLET PO SCH (08:11)
[2021-08-31] MEDS: TAMSULOSIN HCL 0.4 MG CAP PO SCH (08:11)
[2021-08-31] MEDS: EZETIMIBE 10 MG TABLET PO SCH (08:11)
[2021-08-31] MEDS: ASPIRIN 81 MG ECTAB PO SCH (08:11)
[2021-08-31] MEDS: ZINC SULFATE 220 MG CAPSULE PO SCH (08:11)
[2021-08-31] MEDS: IRON SUCROSE 200 MG in 0.9 % SODIUM CHLORIDE 100 ML IV SCH (08:12)
[2021-08-31] MEDS: hydrALAZINE TAB 50 MG TAB PO SCH ×2 (08:12→12:53)
[2021-08-31] MEDS: SODIUM BICARBONATE 650 MG TAB PO SCH (08:12)
[2021-08-31] MEDS: NITROGLYCERIN 0.4 MG/HR PATCH TD SCH (08:12)
[2021-08-31 08:25] LABS: BUN Creatinine Ratio 31.8 (10-20); Calcium 8.5 mg/dl (8.5-10.1); Creatinine Clr Calc Pharmacy 32.3 ml/min; Est GFR (African American) 41.7 ml/min; Magnesium 2.5 mg/dl (1.7-2.4); Potassium 4.4 mmol/L (3.5-5.1)
[2021-08-31] MEDS ORDERED: BUMETANIDE 1 MG TAB PO SCH (09:00)
--- NOTE | 2021-08-31 09:15 | Cardiology Progress Note ---
Date of Service August 31, 2021 Assessment & Plan (1) Chronic diastolic (congestive) heart failure: (2) HFrEF (heart failure with reduced ejection fraction): (3) Cardiomyopathy: (4) Abnormal EKG: (5) Coronary artery disease: (6) FH: CABG (coronary artery bypass surgery): (7) PAD (peripheral artery disease): (8) Carotid disease, bilateral: (9) Chronic kidney disease: Plan: 86 year old male with history of HFpEF, CKD stage 3, significant PAD and carotid stenosis s/p endarterectomy- follows with [facility] vascular, and CABG x4 in 1995- presenting to [facility] due to acute SOB initially felt to be in the setting of carbon monoxide exposure. Found to have HFrEF with an abnormal EKG and WMA on echo. It is likely patient does have worsening CAD given vascular history. Recent outpatient nuclear stress results in june consistent with echo findings. Nuc suggestive of infarct without ischemia. Currently stable from a cardiac standpoint- asymptomatic. No concerns of chest pain or sob. 1. CT of the chest without evidence of hilar mass. Right hilar fullness due to prominent pulmonary artery. CT demonstrated interstitial edema. Renal function back to baseline with the addition of IV Bumex, continue IV Bumex 1 mg daily- trend renal function and replace electrolytes as necessary. Appreciate nephrology input. Will need to transition to PO at discharge. 2. Lower extremity/pedal edema likely multifactorial given PAD and previous hypervolemia in the setting of acute on chronic CHF 2. 1500 cc fluid restriction, strict I&Os, daily weights. Elevate legs at rest- patient remains positive volume status, unsure if I&Os are accurate 3. Patient currently back on vascular dose of DOAC, xarelto 2.5 mg BID. Patient would be high risk for cardiac cath. Possible troponin elevation due to renal dysfunction and CHF. 4. Losartan restarted per nephro. Aldactone remains on hold. Continued on hydralazine 50 mg 3 times daily. 5. Obtain records from patient's outpatient landcare officer, Dr. Chavira- results scanned into [employer] and reviewed. Case discussed with Dr. Carranza Admission and Anticipated Discharge Date Admission Date: August 27, 2021 Supervising Physician Co-Signing Physician Notes 86-year-old patient seen and examined at bedside. Receiving 1 mg IV Bumex daily per nephrology. Creatinine trending downward. Edema improved. Denies chest pain or shortness of breath. No orthopnea, PND. Patient is hard of hearing and a poor historian. PE: VSS with borderline hypotension. General: NAD, poor historian. Heart: Regular, normal S1-S2. 1/6 systolic ejection murmur heard best at the right second intercostal space. Lungs: Diminished breath sounds without rales, rhonchi, or wheeze. Abdomen soft nontender no rebound or guarding. Extremities demonstrate 1+ bilateral pretibial edema. A/P: Agree with above AP history, physical exam, assessment and plan. Transition to oral diuretics at discharge. Nephrology input appreciated. Continue outpatient cardiovascular medications including aspirin, carvedilol, and rosuvastatin. Losartan restarted by nephrology. Hydralazine reduced to 50 mg 3 times daily due to intermittent episodes of hypotension. Patient will follow up with his outpatient landcare officer, Dr. Chavira. Subjective 86 year old male seen and examined at bedside- chart and telemetry reviewed. Yesterday: IV heparin Dc'd and low dose (PVD dose) Xarelto resumed. Continues to receive 1 mg IV Bumex daily with improvement in volume status and renal function. Losartan was restarted by Nephrology. Hydralazine reduced to 50 mg TID due to intermittent episodes of hypotension. Upon entrance into the room patient resting comfortably in chair. Lower extremity edema remains, not back at baseline quite yet. No chest pain, no shortness of breath with activity. No orthopnea. Tele: SR 80s (50-60s over night) Weight: 84.1 kg (08/27)>> 84 kg (08/31) I&O: +1.3L (?) Scr: 2.75>>2.50>>2.36>>2.14>>1.92>>1.70 (08/31) Review of Systems Review of Systems: All systems reviewed & are unremarkable except as noted in HPI & below Physical Exam Physical Exam: General: No acute distress. A+Ox3. HEENT: Normocephalic. Atraumatic. Conjunctiva and sclera clear. NECK: No carotid bruits. No JVD. Carotid upstrokes are brisk. Heart: RRR. S1 and S2 noted without murmur, rubs, gallops. Lungs: Clear to auscultation. No wheezes, rhonchi, rales. Abdomen: Normal bowel sounds. Soft. Nontender. No masses or organomegaly. No abdominal bruits. Extremities: +1 BL lower extremity edema, +2 BL pedal edema, pitting. Pulses: radial=2/4, posterior tibial=2/4, dorsalis pedis = 2/4. NEURO: No focal deficits. PSYCH: Normal. Results & Data ([facility]) Vital Signs (Past 12 Hours) Vital Signs Temp Pulse Pulse Resp BP Pulse Ox 08/31/21 07:12 78 08/31/21 06:46 36.9 C 68 18 137/60 96 08/31/21 04:05 36.8 C 71 20 136/65 96 08/30/21 23:58 36.7 C 63 20 142/53 H 96 08/30/21 22:18 56 L Laboratory Results Coagulation 08/31/21 Range/Units 07:25 APTT 30.2 (21.0-31.0) Seconds CBC 08/31/21 Range/Units 07:25 WBC 7.09 (4.8-10.8) K/uL RBC 3.52 L (4.7-6.1) M/uL Hgb 10.2 L (14.0-18.0) g/dL Hct 31.2 L (42-52) % Plt Count 285 (130-400) K/uL Neut # (Auto) 4.83 (1.4-6.5) K/uL Lymph # (Auto) 0.64 L (1.2-3.4) K/uL Rincon # (Auto) 0.75 H (0.11-0.59) K/uL Eos # (Auto) 0.80 H (0-0.5) K/uL Baso # (Auto) 0.01 (0-0.2) K/uL Comprehensive Metabolic Panel 08/31/21 Range/Units 07:25 Sodium 136 (136-145) mmol/L Potassium 4.4 (3.5-5.1) mmol/L Chloride 106 (98-107) mmol/L Carbon Dioxide 24 (21-32) mmol/L BUN 54 H (6-23) mg/dl Creatinine 1.70 H (0.6-1.4) mg/dl Glucose 129 H (70-99(Fasting)) mg/dl Calcium 8.5 (8.5-10.1) mg/dl Intake and Output 08/30/21 08/31/21 08/31/21 22:59 06:59 14:59 Intake Total 1200 / 1610.767 240 / 1610.767 110 / 110 Output Total 475 / 1105 350 / 1105 Balance 725 / 505.767 -110 / 505.767 110 / 110 Intake: IV 110 / 110 Iron Sucrose 200 mg In 0.9 % 110 / 110 Sodium Chloride 100 ml @ 220 mls/hr IV DAILY KAREN Rx#: [id number] Oral 1200 / 1440 240 / 1440 Output: Urine 475 / 1105 350 / 1105 Other: # Unmeasured Voids 1 Weight 84 kg Weight Measurement Method Built in [facility] (1) Chronic kidney disease Chronic kidney disease stage: unspecified stage Qualified Code(s): N18.9 - Chronic kidney disease, unspecified
--- NOTE | 2021-08-31 10:12 | Nephrology Progress Note ---
Date of Service August 31, 2021 Assessment & Plan (1) DILIP (acute kidney injury): Plan: Clinical presentation consistent with prerenal physiology associated with dehydration and some component of right heart failure. Volume status acceptable. Continue Bumex 1 mg daily. Goal is to encourage even or slightly negative fluid balance. Non-oliguric. Electrolytes are normal. Creatinine now at baseline. Continue to hold spironolactone for now. Continue losartan 50 mg daily. Document I/O's. (2) Chronic kidney disease: Plan: Baseline creatinine 1.9-2.0 mg/dL. Follow up in the [facility] nephrology clinic in [facility] will be arranged with me for 09/05. Medications are currently appropriately dosed for kidney function. (3) BPH w urinary obs/LUTS: Plan: Remains on Tamsulosin. Voiding without difficulty at this time. (4) Chronic diastolic (congestive) heart failure: Plan: Continue diuretics to encourage even to slightly negative fluid balance. (5) Anemia in chronic kidney disease: Plan: IV venofer 200 mg daily started while inpatient. First dose yesterday. I will coordinate additional iron replacement at follow up as needed. Admission and Anticipated Discharge Date Admission Date: August 27, 2021 Subjective No acute events overnight. Don feels well this morning. He is hoping to be discharged home today. I discussed the plan of care with Dr. Rojas this AM. Review of Systems Review of Systems: All systems reviewed & are unremarkable except as noted in HPI & below Physical Exam Constitutional: + frail appearing; no acute distress Eyes: no scleral abnormality and no corneal abnormality ENMT: Ears: + hearing impairment Mouth: no oral mucosal abnormality and oral mucous membranes not dry Neck: normal visual inspection and trachea midline Respiratory: normal respiratory effort Auscultation: lungs clear to auscultation bilaterally Cardiovascular: Rate/Rhythm: regular rate Heart Sounds: normal S1, normal S2 and + murmur Extremities: + edema and + varicosities Musculoskeletal: Extremities: no cyanosis and no clubbing Skin: normal turgor; no lesions Neurologic: Motor/Sensory: no tremor and no asterixis Psychiatric: Orientation: alert and oriented x 3 Results & Data ([facility]) Vital Signs (Past 12 Hours) Vital Signs Temp Pulse Pulse Resp BP Pulse Ox 08/31/21 07:12 78 08/31/21 06:46 36.9 C 68 18 137/60 96 08/31/21 04:05 36.8 C 71 20 136/65 96 08/30/21 23:58 36.7 C 63 20 142/53 H 96 08/30/21 22:18 56 L Laboratory Results Laboratory Results - last 24 hr 08/31/21 08/31/21 08/31/21 07:25 07:25 07:25 WBC 7.09 RBC 3.52 L Hgb 10.2 L Hct 31.2 L MCV 88.6 MCH 29.0 MCHC 32.7 RDW Std Deviation 53.5 H RDW Coeff of Dmitryi 17.2 H Plt Count 285 MPV 9.6 Immature Gran % (Auto) 0.8 Neut % (Auto) 68.2 Lymph % (Auto) 9.0 Pacific % (Auto) 10.6 Eos % (Auto) 11.3 Baso % (Auto) 0.1 Neut # (Auto) 4.83 Lymph # (Auto) 0.64 L [place] # (Auto) 0.75 H Eos # (Auto) 0.80 H Baso # (Auto) 0.01 Immature Gran # (Auto) 0.06 H APTT 30.2 PTT Ratio 1.1 Sodium 136 Potassium 4.4 Chloride 106 Carbon Dioxide 24 Anion Gap 6 BUN 54 H Creatinine 1.70 H Est Cr Clr Drug Dosing 32.3 Est GFR ( Amer) 41.7 Est GFR (Non-Af Amer) 36.0 BUN/Creatinine Ratio 31.8 H Glucose 129 H Calcium 8.5 Magnesium 2.5 H PG Care Time/CCT Total # of Minutes Spent Total Time Spent with Patient: Total time spent is greater than 50% in coordination of care (as documented) at patient's floor/unit and/or counseling patient: Coding Level of Care Code 56563 Subseq Hosp Care Lvl 3 Diagnoses DILIP (acute kidney injury) N17.9 Chronic kidney disease N18.9 Chronic kidney disease stage: unspecified stage BPH w urinary obs/LUTS N40.1; N13.8 Chronic diastolic (congestive) heart failure I50.32 Anemia in chronic kidney disease N18.9; D63.1 (1) Chronic kidney disease Chronic kidney disease stage: unspecified stage Qualified Code(s): N18.9 - Chronic kidney disease, unspecified
--- NOTE | 2021-08-31 12:48 | Hospitalist Progress Note ---
Date of Service August 31, 2021 Assessment & Plan (1) Shortness of breath: Plan: Per Admitting Shift Patient is an 86 yr male who presents with shortness of breath. The patient has coal stove at home and his CO alarm was going on, but his carboxyhemoglobin is okay. Currently, he is feeling better. Denies any shortness of breath. Chest x-ray was okay. The patient has history of diastolic congestive heart failure, has lower extremity edema, on Bumex at home. We will monitor in the hospital in med [place]. We will get an echocardiogram. Continue oxygenation for now. Acute CHF, Systolic and Diastolic, Acute Exacerbation --CT :Small bilateral pleural effusions. Mild interstitial pulmonary edema. --ECHO: (Renal systolic function is mildly reduced. EF 45 to 50%. Moderate sized anterior and lateral wall motion abnormality with hypokinesis to akinesis of the segments. Moderate aortic valve sclerosis without stenosis. Mild aortic regurgitation. Mild mitral regurgitation. Mild tricuspid regurgitation. Grade 3 diastolic dysfunction. --Received IV Bumex Continue p.o. Bumex Monitor I's and O's, daily weight, electrolytes, renal function Continue fluid restriction Appreciate cardiology, nephrology input Needs follow-up with cardiology upon discharge Hold Aldactone for now--Plan to continue to hols upon discharge as well Acute kidney injury on CKD III Baseline Cr 1.9 to 2.0. Metabolic Acidosis--Resolved Creatinine now at baseline Hold Aldactone for now Restarted losartan as per nephrology Needs follow-up with nephrology upon discharge sodium bicarbonate discontinued Hyponatremia Hyperkalemia. Improved Monitor Troponin high sensitivity elevation. Possible NSTEMI Patient denies any chest pain. Troponin elevation likely from ESRD, CHF? IV Heparin discontinued H/O CAD S/P CABG Continue aspirin, Coreg, nitropatch, rosuvastatin BPH On Flomax Hypertension on Coreg, hydralazine. nifedipine Resumed losartan spironolactone held for now Decreased hydralazine to 50 mg 3 times daily Anemia of chronic kidney disease IV Venofer--Needs to continue upon discharge as well Nephrology plans to help with IV venofer upon discharge Hyperlipidemia on statin. Peripheral vascular disease: On aspirin, statin Also on Xarelto DVT Px: Xarelto Code Status Full Code DISPOSITION: Home with Home Health Admission and Anticipated Discharge Date Admission Date: August 27, 2021 Subjective Patient is seen and examined at bedside Doing well today No new complaints Discussed with Cardiology and Nephrology today Leg swelling improved Denies chest pain, dyspnea, dizziness, nausea, and pain Review of Systems Review of Systems: All systems reviewed & are unremarkable except as noted in Subjective Physical Exam Physical Exam: Physical Exam: Vitals signs as noted above General Appearance:Moderately built and nourished, no apparent distress Head: normocephalic, Atraumatic Eyes: normal inspection, EOMI Neck: supple, Trachea midline Respiratory/Chest: Normal breath sounds, CTA, No accessory muscle use Cardiovascular: S1, S2, No murmur Abdomen/GI:Soft, Non tender, Bowel sounds present Extremities/Musculoskeletal:normal inspection, B/L LE 1+ edema Neurologic/Psych:AAOX2, grossly no focal neurological deficits Skin: normal color, warm Results & Data Results & Data ([facility]) Vital Signs (Past 12 Hours) Vital Signs Temp Pulse Pulse Resp BP Pulse Ox 08/31/21 11:03 36.7 C 70 20 130/57 L 95 08/31/21 07:12 78 08/31/21 06:46 36.9 C 68 18 137/60 96 08/31/21 04:05 36.8 C 71 20 136/65 96 Laboratory Results Short CBC 08/31/21 Range/Units 07:25 WBC 7.09 (4.8-10.8) K/uL Hgb 10.2 L (14.0-18.0) g/dL Hct 31.2 L (42-52) % Plt Count 285 (130-400) K/uL BMP 08/31/21 07:25 Sodium 136 Potassium 4.4 Chloride 106 Carbon Dioxide 24 BUN 54 H Creatinine 1.70 H Glucose 129 H Calcium 8.5
--- NOTE | 2021-08-31 13:02 | Discharge Summary ---
Date of Service August 31, 2021 Admission HPI Per Admitting Provider CHIEF COMPLAINT: Shortness of breath. HISTORY OF PRESENT ILLNESS: An 86-year-old male with past medical history significant for chronic diastolic CHF, chronic kidney disease stage III, baseline creatinine 1.8 to 2.0,, BPH, history of kidney stones, history of carotid stenosis, status post bilateral endarterectomy; CAD s/p CABG performed at [facility] in 1995; hypertension, hyperlipidemia, peripheral vascular disease, impaired fasting glucose, anemia, conduction disorder of the heart, pernicious anemia, gastritis, osteoarthritis, presents with shortness of breath. The patient lives alone at home. Nephew takes care of him. The patient complained of shortness of breath today, patient says about 6-8 hours. He called his neighbor who called EMS. When the EMS arrived, his carbon monoxide alarm was going on. They checked on their machine and carbon monoxide levels seemed high. The patient says he has a coal stove at home to keep him warm .EMS placed him on CPAP and brought him here. The patient is currently resting comfortably, hemodynamically stable. The patient does not have any headache or dizziness. No chest pain. Carboxyhemoglobin and ABG was okay. As per the nephew, patient has had a prostate procedure done about 2-1/2 weeks ago in [place] for urinary retention.. Since then they had to replace the catheter for 3 times and one time he pulled it out and since then he was not feeling well and he complained of severe upper back pain, saw orthopedics and they gave some lidocaine shot to his back in the upper back . Since the prostrate procedure he is feeling weak and poor appetite, not doing good at home lately. Here in the hospital, the patient says, last one week he is eating only pudding and cereals at home. He states he is feeling weak, probably some difficulty swallowing, could not get a clear answer from him. Denies any headache currently. No dizziness, no blurred visions, no runny nose, no sore throat, no cough, no fevers, no chest pain. Currently no shortness of breath and feeling better. No nausea, no abdominal pain. Normal bowel and bladder movements. Has swelling of the legs. He is ambulating with a walker at home. Hemodynamics are stable. Admission Exam Per Admitting Provider PHYSICAL EXAMINATION: GENERAL: The patient is alert and oriented. VITAL SIGNS: Temperature 36.8, pulse 57, respiratory rate 20, blood pressure 128/54, oxygen 99% on 2 liters. HEENT: Pupils equal, round and reactive to light. Oral mucosa moist. NECK: No JVD, no neck masses. CARDIOVASCULAR: S1 and S2 heard. Regular rate and rhythm. No murmur, no gallop. RESPIRATORY SYSTEM: Normal AP diameter. No Accessory muscle use, No wheezing or crackles. ABDOMEN: Soft, bowel sounds present, nontender, no distention. CENTRAL NERVOUS SYSTEM: Cranial nerves 2-12 grossly intact, nonfocal. EXTREMITIES: Bilateral lower extremity, +2 edema present with no obvious erythema seen. Principal Diagnosis Acute CHF, Systolic and Diastolic Acute kidney injury Hyponatremia Hyperkalemia Discharge Data Allergies Allergy/AdvReac Type Severity Reaction Status Date / Time clonidine Allergy Unknown Verified 08/27/21 19:49 doxazosin [From Cardura] Allergy HIVES and Verified 08/27/21 19:49 ITCHING furosemide [From Lasix] Allergy HIVES and Verified 08/27/21 19:49 ITCHING hydrochlorothiazide Allergy ITCHING Verified 08/27/21 19:49 ketorolac [From Toradol] Allergy ACUTE Verified 08/27/21 19:49 KIDNEY INJURY potassium chloride Allergy HIVES and Verified 08/27/21 19:49 ITCHING lisinopril AdvReac COUGH Verified 08/27/21 19:49 Consultations 08/27/21 22:57 ED Decision to Admit Stat 08/28/21 08:00 Consult Cardiology Routine Consult Nephrology Routine Ordered Studies 08/28/21 11:58 CT chest diagnostic wo con Urgent Hospital Course (1) Shortness of breath: Per Admitting Shift Patient is an 86 yr male who presents with shortness of breath. The patient has coal stove at home and his CO alarm was going on, but his carboxyhemoglobin is okay. Currently, he is feeling better. Denies any shortness of breath. Chest x-ray was okay. The patient has history of diastolic congestive heart failure, has lower extremity edema, on Bumex at home. We will monitor in the hospital in med [place]. We will get an echocardiogram. Continue oxygenation for now. Acute CHF, Systolic and Diastolic, Acute Exacerbation --CT :Small bilateral pleural effusions. Mild interstitial pulmonary edema. --ECHO: (Renal systolic function is mildly reduced. EF 45 to 50%. Moderate sized anterior and lateral wall motion abnormality with hypokinesis to akinesis of the segments. Moderate aortic valve sclerosis without stenosis. Mild aortic regurgitation. Mild mitral regurgitation. Mild tricuspid regurgitation. Grade 3 diastolic dysfunction. --Received IV Bumex Continue p.o. Bumex Monitor I's and O's, daily weight, electrolytes, renal function Continue fluid restriction Appreciate cardiology, nephrology input Needs follow-up with cardiology upon discharge Hold Aldactone for now--Plan to continue to hols upon discharge as well Acute kidney injury on CKD III Baseline Cr 1.9 to 2.0. Metabolic Acidosis--Resolved Creatinine now at baseline Hold Aldactone for now Restarted losartan as per nephrology Needs follow-up with nephrology upon discharge sodium bicarbonate discontinued Hyponatremia Hyperkalemia. Improved Monitor Troponin high sensitivity elevation. Possible NSTEMI Patient denies any chest pain. Troponin elevation likely from ESRD, CHF? IV Heparin discontinued H/O CAD S/P CABG Continue aspirin, Coreg, nitropatch, rosuvastatin BPH On Flomax Hypertension on Coreg, hydralazine. nifedipine Resumed losartan spironolactone held for now Decreased hydralazine to 50 mg 3 times daily Anemia of chronic kidney disease IV Venofer--Needs to continue upon discharge as well Nephrology plans to help with IV venofer upon discharge Hyperlipidemia on statin. Peripheral vascular disease: On aspirin, statin Also on Xarelto DVT Px: Xarelto Code Status Full Code DISPOSITION: Home with Home Health Total Time Total Time Spent Total Time Spent (In Minutes): 54 minutes Discharge Plan Discharge Items Patient Disposition: Home - Home Health Services Reason For Visit: SOB Discharge Diagnosis: Acute CHF, Systolic and Diastolic Acute kidney injury Hyponatremia Hyperkalemia Activity: Per Instructions section Exercise/Sports: Gradually increase as tolerated Non-emergency contact: Primary Care Provider, Reproduction Technician and Conference Director Call non-emergency contact if: you have any medication questions, your symptoms worsen, your pain is concerning for you and you have a fever Follow-up/Referrals: Judah Chavira MD, PhD [Physician] - 10/19/21 2:15 pm Hipolito Alfaro DO [Physician] - 09/05/21 12:00 pm Panchito Anguiano, PANayeliC [Outside Practitioners] - 05/09/22 8:00 am Diet: Heart Healthy and Low Potassium (2gm) Fluids: 1800ml (7 cups) Addtl Attending Provider Instructions: Follow-up with your primary care physician Panchito Anguiano PA-C on September 04, 2021 at 8 AM and schedule Follow-up with your heat curer on September 05, 2021 at 12: 00 PM Follow-up with your tank wagon driver Dr. Judah Chavira on October 19, 2021 at 2:15PM as scheduled Seek immediate medical attention if your symptoms reoccur or worsen Please take all medications as instructed on discharge list below. Please call if you have any questions or problems. You can reach a [facility] hospitalist on duty at [facility] 24 hours a day by calling [phone] Call your Primary Care doctor if any of the following symptoms or problems start or get worse: * Shortness of breath or difficulty breathing * Wake up at night short of breath * Chest pain * Cough * Swelling of your hands, feet, or legs * More fatigued or tired with your normal activity * Palpitations - sudden fast heart beats WEIGHT * Weigh yourself every morning after using the bathroom. * Use the same scale. * Wear the same amount of clothing. * Write your weight down on a chart. * Call your Primary Care doctor if you gain more than 2-3 pounds in 1-2 days. MEDICATIONS * Use this discharge instruction sheet for medication instructions. * Take your medications at the time your doctor ordered. * Do not skip a dose of your medicines. * If you miss a dose of medicine, take it as soon as possible, but DO NOT DOUBLE A DOSE. * Read your medicine information when you get home. * Know all of the side effects of your medicine. If in doubt, ask your pharmacist * Call your Primary Care doctor's office if you have any side effects. * Be sure all of your doctors know what medicine and herbs you take (including cold, flu, and herbal medicine). Take the following with you to your follow-up doctor appointments: * Weight Chart * Medication List * List of questions Do not drink excessive alcohol, beer or wine. Pending Studies at Discharge: No Stand-Alone Forms: My [facility] Cashually, Smoking Cessation Medications and DC Order Prescriptions: New folic acid 400 mcg Tablet 400 mcg PO QAM Qty: 30 RF: 0 hydralazine 50 mg Tablet 50 mg PO TID Qty: 90 RF: 1 Continued rosuvastatin 5 mg tablet 5 mg PO DAILY Qty: 30 RF: 2 fluocinonide 0.05 % cream 1 applic topical BID PRN (Reason: itching) Qty: 60 RF: 0 ezetimibe 10 mg tablet 10 mg PO DAILY Qty: 30 RF: 2 losartan 50 mg tablet 50 mg PO BID Qty: 60 RF: 2 bumetanide 1 mg tablet 1 mg PO DAILY Qty: 30 RF: 2 Xarelto 2.5 mg tablet 2.5 mg PO BID Qty: 60 RF: 2 nifedipine [Procardia XL] 60 mg tablet extended release 24hr 120 mg PO DAILY Qty: 30 RF: 2 triamcinolone acetonide 0.1 % cream 1 applic topical TID PRN (Reason: itching) Qty: 15 RF: 0 aspirin 81 mg tablet,delayed release (DR/EC) 81 mg PO DAILY Qty: 30 RF: 2 omega-3 fatty acids [Fish Oil Concentrate] 1,000 mg capsule 2,000 mg PO BID Qty: 60 RF: 0 cholecalciferol (vitamin D3) 10 mcg (400 unit) capsule 10 mcg PO DAILY Qty: 30 RF: 0 ascorbic acid (vitamin C) 1,000 mg tablet 1 g PO DAILY Qty: 120 RF: 0 loratadine [Claritin] 10 mg tablet 10 mg PO DAILY PRN (Reason: allergy symptoms) Qty: 90 RF: 0 nitroglycerin [Nitrostat] 0.4 mg tablet, sublingual 0.4 mg sublingual Q5M PRN (Reason: chest pain) Qty: 1 RF: 0 magnesium oxide 400 mg magnesium capsule 400 mg PO DAILY Qty: 30 RF: 0 carvedilol 12.5 mg tablet 12.5 mg PO BID Qty: 60 RF: 2 vitamin T23-exlxy acid 500-400 mcg tablet 1 tab PO DAILY Qty: 30 RF: 0 tamsulosin 0.4 mg capsule 0.8 mg PO DAILY Qty: 30 RF: 2 dutasteride 0.5 mg capsule 0.5 mg PO DAILY Qty: 30 RF: 2 zinc 50 mg tablet 50 mg PO DAILY RF: 0 docusate sodium [Colace] 100 mg capsule 100 mg PO BID RF: 0 cyclobenzaprine 5 mg tablet 5 mg PO HS PRN (Reason: back or shoulder pain) RF: 0 nitroglycerin [Nitro-Dur] 0.4 mg/hr patch 24 hour 1 patch transdermal QAM MDD remove in pm RF: 0 Discontinued hydralazine 100 mg tablet 100 mg PO TID Qty: 60 RF: 2 spironolactone 50 mg tablet 50 mg PO DAILY Qty: 30 RF: 2 Discharge Orders: Discharge Order (Routine); Ordered 08/31/21 Ordered By: Eddie Rojas Admission Data Admit Date/Time: 08/27/21 23:55 Attending Provider: Eddie Rojas Admit Provider: Shubham Motta Primary Care Provider: PCP,NO Other Providers: Shubham Motta ; Gerard Ibrahim ; Judah Del Toro ; Guillermo Lara ; Panchito Carranza ; Angel Earl ; Frankie Newsome ; Chanell Ray ; Annelise Sosa ; Inna Camargo ; Bruce Kim ; Hipolito Alfaro ; [facility]
== END 2021-08-31 16:35 | disposition home health service (06) | DRG 280 ==
LOC: ED 18:31 → 2N 23:55 → SUATTDRO 23:55 → 2N 08-28 01:01

== ENCOUNTER 2021-09-25 01:34 | Inpatient (IN) ==
[2021-09-25] MEDS ORDERED: BUMETANIDE 1 MG in SYRINGE 0 ML IV ONE ×2 (01:57→13:30)
--- NOTE | 2021-09-25 02:03 | Emergency Department Note ---
History of Present Illness General Chief complaint: Swelling/Edema to Extremity Stated complaint: BOTH LEGS SWELLING Time Seen by Provider: 09/25/21 01:44 History of Present Illness 86-year-old male presents emergency department with history of bilateral lower extremity edema ongoing for months now. Patient is on 2 diuretics which include metaxalone and Bumex. Patient of note was at [facility] and was discharged on Saturday for similar episode. Patient denies any dyspnea on exertion or shortness of breath. Patient states that his legs were swollen during the hospitalization and now they are slightly increased in size. There are no other mitigating or alleviating factors. Home Medications Medication Instructions Recorded Confirmed Type ascorbic acid (vitamin C) 1,000 mg 1 g PO DAILY #120 tab 11/24/20 09/25/21 Rx tablet aspirin 81 mg tablet,delayed 81 mg PO DAILY #30 tab 11/24/20 09/25/21 Rx release bumetanide 1 mg tablet 1 mg PO DAILY #30 tab 11/24/20 09/25/21 Rx carvedilol 12.5 mg tablet 12.5 mg PO BID #60 tab 11/24/20 09/25/21 Rx dutasteride 0.5 mg capsule 0.5 mg PO DAILY #30 cap 11/24/20 09/25/21 Rx ezetimibe 10 mg tablet 10 mg PO DAILY #30 tab 11/24/20 09/25/21 Rx losartan 50 mg tablet 50 mg PO BID #60 tab 11/24/20 09/25/21 Rx magnesium oxide 400 mg PO DAILY #30 cap 11/24/20 09/25/21 Rx nifedipine 60 mg tablet,extended 120 mg PO DAILY #30 tab 11/24/20 09/25/21 Rx release 24 hr (Procardia XL) nitroglycerin 0.4 mg sublingual 0.4 mg SUBLINGUAL Q5M PRN #1 tab 11/24/20 Rx tablet (Nitrostat) omega-3 fatty acids 1,000 mg 2,000 mg PO BID #60 cap 11/24/20 09/25/21 Rx capsule (Fish Oil Concentrate) rivaroxaban 2.5 mg tablet (Xarelto) 2.5 mg PO BID #60 tab 11/24/20 09/25/21 Rx rosuvastatin 5 mg tablet 5 mg PO DAILY #30 tab 11/24/20 09/25/21 Rx tamsulosin 0.4 mg capsule 0.8 mg PO DAILY #30 cap 11/24/20 09/25/21 Rx triamcinolone acetonide 0.1 % 1 applic TOPICAL TID PRN #15 g 11/24/20 09/25/21 Rx topical cream vitamin B12 500 mcg-folic acid 400 1 tab PO DAILY #30 tab 11/24/20 09/25/21 Rx mcg tablet docusate sodium 100 mg capsule 100 mg PO BID 12/06/20 09/25/21 History (Colace) zinc 50 mg tablet 50 mg PO DAILY 12/06/20 09/25/21 History nitroglycerin 0.4 mg/hr 1 patch TRANSDERMAL QAM MDD remove 08/27/21 09/25/21 His tory transdermal 24 hour patch in pm (Nitro-Dur) folic acid 400 mcg tablet 400 mcg PO QAM #30 tab 08/31/21 09/25/21 Rx hydralazine 50 mg tablet 50 mg PO TID #90 tab 08/31/21 09/25/21 Rx menthol 0.44 %-zinc oxide 20.6 % 1 applic TOPICAL TID PRN #113 g 09/05/21 09/25/21 Rx topical ointment (Calmoseptine) cholecalciferol (vitamin D3) 50 50 mcg PO DAILY 09/25/21 09/25/21 History mcg (2,000 unit) tablet (Vitamin D3) ferrous sulfate 134 mg (27 mg 134 mg PO BID 09/25/21 09/25/21 History iron) tablet metolazone 5 mg tablet 5 mg PO Q OTHER DAY 09/25/21 09/25/21 History potassium chloride 20 mEq 40 meq PO DAILY 09/25/21 09/25/21 History tablet,extended release(part/cryst) Allergies Allergy/AdvReac Type Severity Reaction Status Date / Time clonidine Allergy Unknown Verified 09/25/21 02:33 doxazosin [From Cardura] Allergy HIVES and Verified 09/25/21 02:33 ITCHING furosemide [From Lasix] Allergy HIVES and Verified 09/25/21 02:33 ITCHING hydrochlorothiazide Allergy ITCHING Verified 09/25/21 02:33 ketorolac [From Toradol] Allergy ACUTE Verified 09/25/21 02:33 KIDNEY INJURY potassium chloride Allergy HIVES and Verified 09/25/21 02:33 ITCHING lisinopril AdvReac COUGH Verified 09/25/21 02:33 Past Med/Surg History Medical History Carotid stenosis Diastolic CHF, chronic Hearing loss Hyperlipidemia Nephrolithiasis Osteoarthritis PAD (peripheral artery disease) Surgical History H/O endarterectomy H/O lithotripsy Hx of CABG S/P colonoscopic polypectomy S/P total knee arthroplasty Family History Denies family history of Diabetes Kidney disease Social History Smoking Status: Never smoker Hx Alcohol Use: Yes (x15 years ago) Hx Substance Use: No Preferred Language: Malawian Communication Ability: Effective Hearing Ability: Hard of Hearing Rn New Grad Required: No Beliefs That Will Affect Care: None Current Living Situation: Alone current occupational status: retired Feels Safe at Home: Yes Assistive Devices: Walker Review of Systems A total of 10 systems reviewed and were otherwise negative Constitutional: no fever Respiratory: no cough Cardiovascular: + edema; no chest pain Physical Exam Vital Signs Vital Signs - 24 hr 09/25/21 01:39 09/25/21 01:53 09/25/21 02:10 Temperature 36.9 C Temperature Source Temporal Artery Scan Pulse Rate 88 63 Pulse Rate [Right Finger] 64 Respiratory Rate 16 19 16 Respiratory Effort / Characteristics Non-Labored Respiratory Depth Normal Blood Pressure Blood Pressure [Left Arm] 100/54 L Blood Pressure Mean Blood Pressure Mean [Left Arm] 69 Pulse Oximetry 96 96 94 Oxygen Delivery Method Room Air Room Air Room Air Sepsis Recent Fever Within 48 Hours No Sepsis New/Unexplained Change in Mental Status N/A Sepsis Action Taken by Nursing No Action Required 09/25/21 03:04 Temperature Temperature Source Pulse Rate 64 Pulse Rate [Right Finger] Respiratory Rate 18 Respiratory Effort / Characteristics Respiratory Depth Blood Pressure 107/52 L Blood Pressure [Left Arm] Blood Pressure Mean 70 Blood Pressure Mean [Left Arm] Pulse Oximetry 96 Oxygen Delivery Method Room Air Sepsis Recent Fever Within 48 Hours Sepsis New/Unexplained Change in Mental Status Sepsis Action Taken by Nursing VITAL SIGNS - Vital signs and nursing notes were reviewed. GENERAL - no acute distress. Communicates well with provider and answers questions appropriately. SKIN - Without rashes. HEAD - NC/AT. EYES - PERRL with EOMI bilaterally. Sclera anicteric. Palpebral conjunctiva pink and moist with no injection noted. EARS - No deformities of external structures noted on gross examination bilaterally. NOSE - Midline and without cyanosis. No epistaxis or purulent drainage noted. Septum midline without deviation or septal hematoma noted. MOUTH/OROPHARYNX - Without perioral cyanosis. Buccal mucosa pink and moist a NECK - Neck with FROM. LUNGS - Chest wall symmetric without accessory muscle use, intercostals retractions, or central cyanosis. Normal vesicular breath sounds CTA B/L. No wheezes, rales, or rhonchi appreciated. CARDIAC - RRR with S1/S2. No murmur, rubs, or gallops appreciated. ABDOMEN - Abdominal contour soft without pulsations or visible masses. BS normoactive all four quadrants. No tenderness, palpable masses, hepatosplenomegaly, or ascites noted. EXTREMITIES - No clubbing or peripheral cyanosis. Positive for bilateral lower extremity pitting edema, calves are nontender . +5/5 strength noted in UE/LE bilaterally. NEUROLOGIC - Cranial nerves II through XII grossly intact. PSYCH - A&Ox3 and cooperates fully with examiner. Pt is very pleasant and interacts well with examiner. Course Reevaluation(s) Reevaluation #1: Is resting in no distress he was started on IV Bumex, he is in no respiratory distress. He has an increase in his BNP increase in his troponin with a nonischemic EKG he has a history of CKD his creatinine has been higher in the past however. The case was discussed with the [facility] hospitalist for adm ission and the patient will be admitted for CHF and leg swelling with a history of CKD Time: 03:38 Administered Medications Discontinued Medications Bumetanide 1 mg/ Syringe 4 mls @ 4 mls/min IV ONE ONE Stop: 09/25/21 01:58 Last Admin: 09/25/21 02:43 Dose: 4 mls/min Documented by: [id number] Medical Decision Making Medical Records Attestation: I reviewed the patient's medical records. Home Medications Current Medication List: was personally reviewed by me Laboratory Data Attestation: I reviewed the patient's lab results. Result diagrams: 09/25/21 01:55 09/25/21 03:24 Lab Results 09/25/21 09/25/21 09/25/21 Range/Units 01:55 01:55 01:55 WBC 7.61 (4.8-10.8) K/uL RBC 3.33 L (4.7-6.1) M/uL Hgb 9.6 L (14.0-18.0) g/dL Hct 30.1 L (42-52) % MCV 90.4 (80-100) fL MCH 28.8 (25-34) pg MCHC 31.9 L (32-36) g/dL RDW Std Deviation 56.3 H (36.4-46.3) fL RDW Coeff of Dmitriy 17.1 H (11.5-14.5) % Plt Count 214 (130-400) K/uL MPV 11.4 H (7.4-10.4) fL Immature Gran % (Auto) 0.1 % Neut % (Auto) 68.5 % Lymph % (Auto) 12.4 % [place] % (Auto) 13.9 % Eos % (Auto) 5.0 % Baso % (Auto) 0.1 % Neut # (Auto) 5.21 (1.4-6.5) K/uL Lymph # (Auto) 0.94 L (1.2-3.4) K/uL [place] # (Auto) 1.06 H (0.11-0.59) K/uL Eos # (Auto) 0.38 (0-0.5) K/uL Baso # (Auto) 0.01 (0-0.2) K/uL Immature Gran # (Auto) 0.01 (0.00-0.02) K/uL PT 12.2 H (9.0-12.0) Seconds INR 1.2 H (0.9-1.1) APTT 28.7 (21.0-31.0) Seconds PTT Ratio 1.0 Sodium 134 L (136-145) mmol/L Potassium (3.5-5.1) mmol/L Chloride 96 L (98-107) mmol/L Carbon Dioxide 26 (21-32) mmol/L Anion Gap 12 H (3-11) BUN 83 H (6-23) mg/dl Creatinine 2.49 H (0.6-1.4) mg/dl Est Cr Clr Drug Dosing Not Reportable Est GFR ( Amer) 26.3 ml/min Est GFR (Non-Af Amer) 22.7 ml/min BUN/Creatinine Ratio 33.3 H (10-20) Glucose 104 H (70-99(Fasting)) mg/dl Calcium 8.9 (8.5-10.1) mg/dl Magnesium 2.4 (1.7-2.4) mg/dl Total Bilirubin 0.6 (0.2-1.0) mg/dl AST (13-39) U/L ALT 24 (7-52) U/L Alkaline Phosphatase 61 (34-104) U/L Troponin I High Sens 117.0 H* (0-20) pg/ml B-Natriuretic Peptide (0-100) pg/ml Total Protein 6.2 (6.0-8.3) gm/dl Albumin 3.7 (3.4-5.0) gm/dl Globulin 2.5 (2.5-4.0) gm/dl Albumin/Globulin Ratio 1.5 (0.9-2) SARS-CoV-2, RNA, NAAT (NEGATIVE) 09/25/21 09/25/21 09/25/21 Range/Units 01:55 02:56 03:24 WBC (4.8-10.8) K/uL RBC (4.7-6.1) M/uL Hgb (14.0-18.0) g/dL Hct (42-52) % MCV (80-100) fL MCH (25-34) pg MCHC (32-36) g/dL RDW Std Deviation (36.4-46.3) fL RDW Coeff of Dmitriy (11.5-14.5) % Plt Count (130-400) K/uL MPV (7.4-10.4) fL Immature Gran % (Auto) % Neut % (Auto) % Lymph % (Auto) % [place] % (Auto) % Eos % (Auto) % Baso % (Auto) % Neut # (Auto) (1.4-6.5) K/uL Lymph # (Auto) (1.2-3.4) K/uL [place] # (Auto) (0.11-0.59) K/uL Eos # (Auto) (0-0.5) K/uL Baso # (Auto) (0-0.2) K/uL Immature Gran # (Auto) (0.00-0.02) K/uL PT (9.0-12.0) Seconds INR (0.9-1.1) APTT (21.0-31.0) Seconds PTT Ratio Sodium (136-145) mmol/L Potassium 4.0 (3.5-5.1) mmol/L Chloride (98-107) mmol/L Carbon Dioxide (21-32) mmol/L Anion Gap (3-11) BUN (6-23) mg/dl Creatinine (0.6-1.4) mg/dl Est Cr Clr Drug Dosing Est GFR ( Amer) ml/min Est GFR (Non-Af Amer) ml/min BUN/Creatinine Ratio (10-20) Glucose (70-99(Fasting)) mg/dl Calcium (8.5-10.1) mg/dl Magnesium (1.7-2.4) mg/dl Total Bilirubin (0.2-1.0) mg/dl AST 18 (13-39) U/L ALT (7-52) U/L Alkaline Phosphatase (34-104) U/L Troponin I High Sens (0-20) pg/ml B-Natriuretic Peptide 1513 H (0-100) pg/ml Total Protein (6.0-8.3) gm/dl Albumin (3.4-5.0) gm/dl Globulin (2.5-4.0) gm/dl Albumin/Globulin Ratio (0.9-2) SARS-CoV-2, RNA, NAAT NEGATIVE (NEGATIVE) Imaging Data Attestation: I personally reviewed and interpreted this imaging study as follows: My Impression: Chest x-ray interpreted by me cardiomegaly no obvious significant effusion calcified aorta is present ECG Data Attestation: I personally reviewed and interpreted this ECG as follows: Additional Comments: EKG interpreted by me normal sinus rhythm nonspecific ST-T change normal axis no obvious ST segment elevation poor R wave progression the precordium is MDM Narrative Medical decision making differential diagnosis includes CHF bilateral lower extremity edema renal insufficiency metabolic derangement; plan is to check labs EKG chest x-ray Impression & Plan CHF (congestive heart failure), Chronic kidney disease, Elevated troponin Discharge Plan Visit Data Chief Complaint: Swelling/Edema to Extremity Stated Complaint: BOTH LEGS SWELLING ED Provider: Gerard Kaminski Discharge Problem: CHF (congestive heart failure), Chronic kidney disease, Elevated troponin Patient Disposition: Being Evaluated by Hospitalist Forms Stand Alone Forms: My [facility] Prescriptions Prescriptions: No Action rosuvastatin 5 mg tablet 5 mg PO DAILY Qty: 30 RF: 2 ezetimibe 10 mg tablet 10 mg PO DAILY Qty: 30 RF: 2 losartan 50 mg tablet 50 mg PO BID Qty: 60 RF: 2 Hold Instructions: Home Medication placed on hold at Doctor's office bumetanide 1 mg tablet 1 mg PO DAILY Qty: 30 RF: 2 Xarelto 2.5 mg tablet 2.5 mg PO BID Qty: 60 RF: 2 nifedipine [Procardia XL] 60 mg tablet extended release 24hr 120 mg PO DAILY Qty: 30 RF: 2 triamcinolone acetonide 0.1 % cream 1 applic topical TID PRN (Reason: itching) Qty: 15 RF: 0 aspirin 81 mg tablet,delayed release (DR/EC) 81 mg PO DAILY Qty: 30 RF: 2 omega-3 fatty acids [Fish Oil Concentrate] 1,000 mg capsule 2,000 mg PO BID Qty: 60 RF: 0 ascorbic acid (vitamin C) 1,000 mg tablet 1 g PO DAILY Qty: 120 RF: 0 nitroglycerin [Nitrostat] 0.4 mg tablet, sublingual 0.4 mg sublingual Q5M PRN (Reason: chest pain) Qty: 1 RF: 0 magnesium oxide 400 mg magnesium capsule 400 mg PO DAILY Qty: 30 RF: 0 carvedilol 12.5 mg tablet 12.5 mg PO BID Qty: 60 RF: 2 vitamin L56-ngrys acid 500-400 mcg tablet 1 tab PO DAILY Qty: 30 RF: 0 tamsulosin 0.4 mg capsule 0.8 mg PO DAILY Qty: 30 RF: 2 dutasteride 0.5 mg capsule 0.5 mg PO DAILY Qty: 30 RF: 2 menthol-zinc oxide [Calmoseptine] 0.44-20.6 % ointment 1 applic topical TID PRN (Reason: skin irritation) Qty: 113 RF: 1 zinc 50 mg tablet 50 mg PO DAILY RF: 0 docusate sodium [Colace] 100 mg capsule 100 mg PO BID RF: 0 nitroglycerin [Nitro-Dur] 0.4 mg/hr patch 24 hour 1 patch transdermal QAM MDD remove in pm RF: 0 folic acid 400 mcg Tablet 400 mcg PO QAM Qty: 30 RF: 0 hydralazine 50 mg Tablet 50 mg PO TID Qty: 90 RF: 1 cholecalciferol (vitamin D3) [Vitamin D3] 50 mcg (2,000 unit) Tablet 50 mcg PO DAILY RF: 0 ferrous sulfate 134 mg (27 mg iron) Tablet 134 mg PO BID RF: 0 metolazone 5 mg tablet 5 mg PO Q OTHER DAY RF: 0 potassium chloride 20 mEq tablet,ER particles/crystals 40 meq PO DAILY RF: 0 Referrals Referrals: PCP,NO [Primary Care Provider] -
[2021-09-25 02:07] LABS: Basophils # (auto) 0.01 K/uL (0-0.2); Basophils % (auto) 0.1 %; Eosinophils # (auto) 0.38 K/uL (0-0.5); Hematocrit (blood only) 30.1 % (42-52); Hemoglobin 9.6 g/dL (14.0-18.0); Immature Granulocytes # (auto) 0.01 K/uL (0.00-0.02); Immature Granulocytes % (auto) 0.1 %; Lymphocytes # (auto) 0.94 K/uL (1.2-3.4); Lymphocytes % (auto) 12.4 %; Mean Corpuscular Hemoglobin 28.8 pg (25-34); Mean Corpuscular Hgb Conc 31.9 g/dL (32-36); Mean Corpuscular Volume 90.4 fL (80-100); Mean Platelet Volume 11.4 fL (7.4-10.4); Monocytes # (auto) 1.06 K/uL (0.11-0.59); Monocytes % (auto) 13.9 %; Neutrophils # (auto) 5.21 K/uL (1.4-6.5); Neutrophils % (auto) 68.5 %; Platelet Count 214 K/uL (130-400); RDW Coefficient of Variation 17.1 % (11.5-14.5); RDW Standard Deviation 56.3 fL (36.4-46.3); Red Blood Count 3.33 M/uL (4.7-6.1); White Blood Count 7.61 K/uL (4.8-10.8)
[2021-09-25 02:17] LABS: INR 1.2 (0.9-1.1); Partial Thromboplastin Time 28.7 Seconds (21.0-31.0); Prothrombin Time 12.2 Seconds (9.0-12.0)
[2021-09-25 02:52] LABS: Alanine Aminotransferase 24 U/L (7-52); Albumin Globulin Ratio 1.5 (0.9-2); Albumin Level 3.7 gm/dl (3.4-5.0); Alkaline Phosphatase 61 U/L (34-104); Anion Gap 12 (3-11); BUN Creatinine Ratio 33.3 (10-20); Bilirubin,Total 0.6 mg/dl (0.2-1.0); Blood Urea Nitrogen 83 mg/dl (6-23); Calcium 8.9 mg/dl (8.5-10.1); Carbon Dioxide 26 mmol/L (21-32); Chloride 96 mmol/L (98-107); Est GFR (African American) 26.3 ml/min; Est GFR (Non-African American) 22.7 ml/min; Globulin 2.5 gm/dl (2.5-4.0); Glucose 104 mg/dl (70-99(Fasting)); Magnesium 2.4 mg/dl (1.7-2.4); Sodium 134 mmol/L (136-145); Total Protein 6.2 gm/dl (6.0-8.3)
[2021-09-25] MEDS ORDERED: TRIAMCINOLONE ACET 0.1% CR 15 GM TUBE TOP PRN (05:33)
[2021-09-25] MEDS ORDERED: NITROGLYCERIN SL 0.4 MG/TAB TAB SL PRN (05:33)
[2021-09-25] MEDS ORDERED: POLYETHYLENE (MIRALAX) 17 GM PACK PO PRN (05:33)
[2021-09-25] MEDS ORDERED: ONDANSETRON INJ 2 MG/ML 2 ML VIAL IV PRN (05:33)
[2021-09-25] MEDS ORDERED: ACETAMINOPHEN 325 MG TAB PO PRN (05:33)
[2021-09-25] MEDS ORDERED: MENTHOL-ZINC OXIDE 360 APPLN/120 GM TUBE EXT PRN (05:33)
--- NOTE | 2021-09-25 06:46 | Electrocardiogram Report ---
Test Reason : Blood Pressure : / mmHG Vent. Rate : 065 BPM Atrial Rate : 065 BPM P-R Int : 186 ms QRS Dur : 104 ms QT Int : 448 ms P-R-T Axes : 032 024 155 degrees QTc Int : 465 ms Normal sinus rhythm with occasional Premature atrial complexes Left atrial enlargement Possible Old Anterior infarct Diffuse Nonspecific ST and T wave abnormality Abnormal ECG When compared with ECG of 29-AUG-2021 05:36, Probable lead reversal corrected Confirmed by José Luis Hills ([id number]) on 09/25/2021 6:46:23 AM Referred By: REFERRED SELF Confirmed By:José Luis Hills
--- NOTE | 2021-09-25 07:17 | History and Physical Report ---
DATE OF ADMISSION: 09/25/2021. CHIEF COMPLAINT: Lower extremity edema. HISTORY OF PRESENT ILLNESS: An 86-year-old male with past medical history significant for chronic systolic and diastolic CHF, chronic kidney disease stage III, baseline creatinine of 1.8 to 2, BPH, history of kidney stones, history of carotid stenosis, status post bilateral endarterectomies, history of CAD, status post CABG performed at [facility] in 1995, hypertension, hyperlipidemia, peripheral vascular disease, history of impaired fasting glucose, anemia,conduction disorder of heart, pernicious anemia, gastritis, osteoarthritis, presents with lower extremity edema. The patient was in [facility] for 2 weeks for lower extremity edema, discharged a couple of days ago, lives alone at home. Niece and nephew take care of him. He says he takes his medications as his niece and nephew place them in order. He says he thinks he is taking them as he is supposed to take. Denies any over salt intake. Comes here because the lower extremity edema again got worse. Denies any shortness of breath, no chest pain, no nausea, no vomiting, no headache, no blurred visions, no earache, no runny nose, no sore throat. Appetite is okay with no difficulty swallowing. No nausea, no abdominal pain. Normal bowel and bladder movements. His stools are always black because he takes iron tablets. He has a cane and walker at home, but he ambulates without any support. Currently resting comfortably and hemodynamically stable, saturating okay on room air. ALLERGIES: CLONIDINE, CARDURA, LASIX, HYDROCHLOROTHIAZIDE, TORADOL, POTASSIUM CHLORIDE, LISINOPRIL. PAST MEDICAL HISTORY: As mentioned above. PAST SURGICAL HISTORY: CABG, bilateral carotid endarterectomy, lithotripsies, colonoscopy, left and right TKR, EGDs, laryngoscopy, cardiac catheterization. MEDICATIONS: The patient is on ascorbic acid 1 gram p.o. daily, aspirin 81 mg p.o. daily, Bumex 1 mg p.o. daily, Coreg 12.5 mg p.o. b.i.d., vitamin D 50 mcg p.o. daily, Colace 100 mg p.o. b.i.d., dutasteride 0.5 mg p.o. daily, ezetimibe 10 mg p.o. daily, ferrous sulfate 134 mg p.o. b.i.d., folic acid 400 mcg p.o. a.m., hydralazine 50 mg p.o. t.i.d., losartan 50 mg p.o. b.i.d., which is on hold, magnesium oxide 400 mg p.o. daily, metolazone 5 mg p.o. q. 6 hours every other day, nifedipine 120 mg p.o. daily, nitroglycerin sublingual p.r.n., Nitro- Dur 1 patch transdermal as directed, omega fish oil 2 g p.o. b.i.d., potassium chloride 40 mEq p.o. daily, Xarelto 2.5 mg p.o. b.i.d., lovastatin 5 mg p.o. daily, Flomax 0.8 mg p.o. daily, vitamin B12 and folic acid one tablet p.o. daily, zinc 50 mg p.o. daily. FAMILY HISTORY: Significant for mother had cancer and sister has heart disease. SOCIAL HISTORY: Lives alone. 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 No smoking history. No alcohol. Niece and nephew take care of him. REVIEW OF SYSTEMS: As per HPI. Rest of review of systems is negative. PHYSICAL EXAMINATION: GENERAL: The patient is of moderate build, not in acute distress. VITAL SIGNS: Temperature 37, pulse 65, respiratory rate 23, blood pressure 101/51, oxygen 94% on room air. HEENT: Pupils equal, round and reactive to light. Oral mucosa moist. LUNGS: No JVD or neck masses. CARDIOVASCULAR: S1 and S2 heard. Regular rate and rhythm. No murmur, no gallop. RESPIRATORY SYSTEM: Normal AP diameter. No accessory muscle use. No wheezing, no crackles. ABDOMEN: Soft. Bowel sounds are present, nontender, no distention. CENTRAL NERVOUS SYSTEM: Cranial nerves II-XII grossly intact, nonfocal. EXTREMITIES: Lower extremity gross pedal edema present, no erythema seen. LABORATORY DATA: WBC 7.6, hemoglobin 9.6, hematocrit 30.1, platelets 214. PT 12.2, INR 1.2, APTT 28.7. Sodium 134, potassium 4, chloride 96, CO2 of 26, BUN 83, creatinine 2.4, serum glucose 104, calcium 8.9, magnesium 2.4, total bilirubin 0.6, AST 18, ALT 24, alkaline phosphatase 61. Troponin I high sensitivity 117. BNP 1513. SARS-CoV-2 rapid test negative. IMAGING DATA: Chest x-ray, probable mild left pleural effusion. EKG: Normal sinus rhythm with sinus arrhythmia at a rate of 65, nonspecific ST changes. ASSESSMENT AND PLAN: 1. This 86-year-old male presents with lower extremity edema, [id number] systolic and diastolic congestive heart failure, recent echo showed 45% to 50% EF and grade 3 diastolic dysfunction. The patient is on Bumex 1 mg p.o. daily and metolazone 5 mg every other day. Recently was in [facility] for 2 weeks, discharged last Saturday. Needs to get the records. He says there is a change in his medications. He received IV Bumex 1 mg in the ER. Will continue with IV Bumex 1 mg b.i.d. Continue home metolazone, and potassium supplements. Losartan is on hold probably for DILIP. Will follow daily weights, I's and O's. Consult cardiology in the a.m. for further recommendation. Repeat echo as per Cardiology. 2. Acute kidney injury on chronic kidney disease stage III: Baseline creatinine 1.8 to 2, presently with creatinine of 2.4. Getting IV Bumex. Holding losartan. Will monitor the labs. If any concern, will consult nephrology. 3.Mild elevation of troponin I high sensitivity to 117, most likely demand ischemia. Will follow serial enzymes, echo as per Cardiology. 4. History of coronary artery disease, status post coronary artery bypass graft: Continue his home medication of aspirin, Coreg, nitro patch, lovastatin. 5 History of benign prostatic hypertrophy: Recently had prostate surgery, on Flomax. Monitor for urinary retention. 5. History of hypertension: On Coreg, hydralazine, nifedipine, nitro patch. Holding losartan for acute kidney injury. Spironolactone was stopped last admission. The patient is also on Bumex. Will monitor his blood pressure. 6. Hyperlipidemia: On statin. 7. PVD on aspirin and statin. 7. Deep venous thrombosis prophylaxis: On Xarelto. 8. Anemia of chronic kidney disease: On iron supplements. Do not know why the patient is on Xarelto. To get the records. CODE STATUS: Full code as per my discussion with the patient. DISPOSITION: Admit to tele floor. PT/OT prior to discharge. Social service to help with discharge planning. The patient may need more help at home with his medications. Job ID: [id number] [id number]
[2021-09-25 07:28] LABS: Basophils # (auto) 0.01 K/uL (0-0.2); Basophils % (auto) 0.2 %; Eosinophils # (auto) 0.43 K/uL (0-0.5); Eosinophils % (auto) 7.8 %; Hematocrit (blood only) 26.7 % (42-52); Hemoglobin 8.5 g/dL (14.0-18.0); Immature Granulocytes # (auto) 0.01 K/uL (0.00-0.02); Immature Granulocytes % (auto) 0.2 %; Lymphocytes # (auto) 0.72 K/uL (1.2-3.4); Lymphocytes % (auto) 13.1 %; Mean Corpuscular Hemoglobin 28.8 pg (25-34); Mean Corpuscular Hgb Conc 31.8 g/dL (32-36); Mean Corpuscular Volume 90.5 fL (80-100); Mean Platelet Volume 10.7 fL (7.4-10.4); Monocytes # (auto) 0.74 K/uL (0.11-0.59); Monocytes % (auto) 13.5 %; Neutrophils # (auto) 3.58 K/uL (1.4-6.5); Neutrophils % (auto) 65.2 %; Platelet Count 179 K/uL (130-400); Red Blood Count 2.95 M/uL (4.7-6.1); White Blood Count 5.49 K/uL (4.8-10.8)
[2021-09-25 07:56] LABS: Calcium 8.6 mg/dl (8.5-10.1); Creatinine Clr Calc Pharmacy 21.7 ml/min; Est GFR (African American) 27.1 ml/min; Est GFR (Non-African American) 23.4 ml/min; Magnesium 2.4 mg/dl (1.7-2.4); Potassium 3.5 mmol/L (3.5-5.1); Troponin I High Sensitivity 134.1 pg/ml (0-20)
[2021-09-25] MEDS: ROSUVASTATIN CALCIUM 5 MG TAB PO SCH (08:07)
[2021-09-25] MEDS: BUMETANIDE 1 MG in SYRINGE 0 ML IV SCH ×2 (08:07→20:42)
[2021-09-25] MEDS: ASPIRIN 81 MG ECTAB PO SCH (08:07)
[2021-09-25] MEDS: ZINC SULFATE 220 MG CAPSULE PO SCH (08:07)
[2021-09-25] MEDS: TAMSULOSIN HCL 0.4 MG CAP PO SCH (08:07)
[2021-09-25] MEDS: POTASSIUM CHLORIDE CRTAB 20 MEQ TABCR PO SCH (08:08)
[2021-09-25] MEDS: EZETIMIBE 10 MG TABLET PO SCH (08:08)
[2021-09-25] MEDS: NITROGLYCERIN 0.4 MG/HR PATCH TD SCH ×2 (08:08→10:13)
[2021-09-25] MEDS: carvediloL 12.5 MG TAB PO SCH ×2 (08:08→18:10)
[2021-09-25] MEDS: ASCORBIC ACID 500 MG TAB PO SCH (08:08)
[2021-09-25] MEDS: FERROUS SULFATE 325 MG TAB PO SCH ×2 (08:08→20:43)
[2021-09-25] MEDS: MAGNESIUM OXIDE 400 MG TAB PO SCH (08:09)
[2021-09-25] MEDS: hydrALAZINE TAB 50 MG TAB PO SCH ×3 (08:09→20:37)
[2021-09-25] MEDS: LOSARTAN POTASSIUM 50 MG TAB PO SCH ×2 (08:09→20:40)
[2021-09-25] MEDS: FOLIC ACID 400 MCG TAB PO SCH (08:09)
[2021-09-25] MEDS: CHOLECALCIFEROL 1,000 UNITS 25 MCG TAB PO SCH (08:09)
[2021-09-25] MEDS: DOCUSATE SODIUM 100 MG CAP PO SCH ×2 (08:09→20:40)
[2021-09-25] MEDS: RIVAROXABAN 2.5 MG TAB PO SCH ×2 (08:10→20:40)
[2021-09-25] MEDS: CYANOCOBALAMIN (B-12) 500 MCG TABLET PO SCH (08:20)
[2021-09-25] MEDS ORDERED: NIFEdipine EXTENDED REL 30 MG TABCR PO SCH (09:00)
--- NOTE | 2021-09-25 09:19 | Nephrology Consultation ---
Date of Consultation September 25, 2021 Assessment & Plan (1) CHF (congestive heart failure): * 09/17 echocardiogram reveals evidence of pulmonary HTN * CXR w/bilateral pleural effusions suggestive of CHF * Recommend low Na diet * Will stop Procardia as this may be contributing to LE swelling * Continue Bumex/Metolazone * Continue Carvedilol, Losartan, Hydralazine * Will consider low dose Spironolactone if BP trends up * Await Cardiology input (2) Chronic kidney disease: * CKD stage G3b/A1 (moderate impairment). His baseline Cr has been 2.0 w/ EGFR 30 cc/min. Urinalysis has been acellular. UPCR has been < 0.2. His renal impairment has been attributed to microvascular disease and chronic R sided heart failure (3) Anemia in chronic kidney disease: * Primary service has ordered oral iron * Will order iron studies, FOBT History of Present Illness Reason for Consultation: DILIP/CKD, LE swelling Attending Physician: Juancho Shay MD History of Present Illness Mr. Ang is an 86 year old white male who is seen at the request of Dr. Shay for evaluation of DILIP/CKD and progressive LE swelling. Medical records in the EMR were reviewed today and are summarized as follows: Mr. Ang has CKD stage G3b/A1 (moderate impairment). His baseline Cr has been 2.0 w/ EGFR 30 cc/min. Urinalysis has been acellular. UPCR has been < 0.2. His renal impairment has been attributed to microvascular disease and chronic R sided heart failure. Mr. 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 Mr. Ang reports that he was recently hospitalized in [place], [place] due to progressive LE swelling. He underwent medication adjustments and was discharged to home. Medical records including discharge weight are not yet available. Mr. Ang reports adherence to his prescribed medical regimen and low sodium diet. He presented to [facility] last evening due to progressive LE swelling. He currently denies angina, dyspnea, flank pain or foamy urine. Admission labs reveal Cr 2.4, urinalysis negative for protein. His current medical regimen includes Bumex 1 mg po qAM, Metolazone 5 mg po QOD, Carvedilol, Hydralazine, Losartan, Nifedipine, Nitro-Dur transdermal. Echocardiogram 08/28/21 revealed LVEF 45 - 50%, PASP 51 mmHg. Allergies Allergy/AdvReac Type Severity Reaction Status Date / Time clonidine Allergy Unknown Verified 09/25/21 02:33 doxazosin [From Cardura] Allergy HIVES and Verified 09/25/21 02:33 ITCHING furosemide [From Lasix] Allergy HIVES and Verified 09/25/21 02:33 ITCHING hydrochlorothiazide Allergy ITCHING Verified 09/25/21 02:33 ketorolac [From Toradol] Allergy ACUTE Verified 09/25/21 02:33 KIDNEY INJURY potassium chloride Allergy HIVES and Verified 09/25/21 02:33 ITCHING lisinopril AdvReac COUGH Verified 09/25/21 02:33 Home Medications Medication Instructions Recorded Confirmed Type ascorbic acid (vitamin C) 1,000 mg 1 g PO DAILY #120 tab 11/24/20 09/25/21 Rx tablet aspirin 81 mg tablet,delayed 81 mg PO DAILY #30 tab 11/24/20 09/25/21 Rx release bumetanide 1 mg tablet 1 mg PO DAILY #30 tab 11/24/20 09/25/21 Rx carvedilol 12.5 mg tablet 12.5 mg PO BID #60 tab 11/24/20 09/25/21 Rx dutasteride 0.5 mg capsule 0.5 mg PO DAILY #30 cap 11/24/20 09/25/21 Rx ezetimibe 10 mg tablet 10 mg PO DAILY #30 tab 11/24/20 09/25/21 Rx losartan 50 mg tablet 50 mg PO BID #60 tab 11/24/20 09/25/21 Rx magnesium oxide 400 mg PO DAILY #30 cap 11/24/20 09/25/21 Rx nifedipine 60 mg tablet,extended 120 mg PO DAILY #30 tab 11/24/20 09/25/21 Rx release 24 hr (Procardia XL) nitroglycerin 0.4 mg sublingual 0.4 mg SUBLINGUAL Q5M PRN #1 tab 11/24/20 09/25/21 Rx tablet (Nitrostat) omega-3 fatty acids 1,000 mg 2,000 mg PO BID #60 cap 11/24/20 09/25/21 Rx capsule (Fish Oil Concentrate) rivaroxaban 2.5 mg tablet (Xarelto) 2.5 mg PO BID #60 tab 11/24/20 09/25/21 Rx rosuvastatin 5 mg tablet 5 mg PO DAILY #30 tab 11/24/20 09/25/21 Rx tamsulosin 0.4 mg capsule 0.8 mg PO DAILY #30 cap 11/24/20 09/25/21 Rx triamcinolone acetonide 0.1 % 1 applic TOPICAL TID PRN #15 g 11/24/20 09/25/21 Rx topical cream vitamin B12 500 mcg-folic acid 400 1 tab PO DAILY #30 tab 11/24/20 09/25/21 Rx mcg tablet docusate sodium 100 mg capsule 100 mg PO BID 12/06/20 09/25/21 History (Colace) zinc 50 mg tablet 50 mg PO DAILY 12/06/20 09/25/21 History nitroglycerin 0.4 mg/hr 1 patch TRANSDERMAL QAM MDD remove 08/27/21 09/25/21 History transdermal 24 hour patch in pm (Nitro-Dur) folic acid 400 mcg tablet 400 mcg PO QAM #30 tab 08/31/21 09/25/21 Rx hydralazine 50 mg tablet 50 mg PO TID #90 tab 08/31/21 09/25/21 Rx menthol 0.44 %-zinc oxide 20.6 % 1 applic TOPICAL TID PRN #113 g 09/05/21 09/25/21 Rx topical ointment (Calmoseptine) cholecalciferol (vitamin D3) 50 50 mcg PO DAILY 09/25/21 09/25/21 History mcg (2,000 unit) tablet (Vitamin D3) ferrous sulfate 134 mg (27 mg 134 mg PO BID 09/25/21 09/25/21 History iron) tablet metolazone 5 mg tablet 5 mg PO Q OTHER DAY 09/25/21 09/25/21 History potassium chloride 20 mEq 40 meq PO DAILY 09/25/21 09/25/21 History tablet,extended release(part/cryst) Patient History Medical History Carotid stenosis Diastolic CHF, chronic Hearing loss Hyperlipidemia Nephrolithiasis Osteoarthritis PAD (peripheral artery disease) Surgical History H/O endarterectomy H/O lithotripsy Hx of CABG S/P colonoscopic polypectomy S/P total knee arthroplasty left Family History Denies family history of Diabetes Kidney disease Social History Smoking Status: Never smoker Hx Alcohol Use: Yes (15 years ago) Hx Substance Use: No Preferred Language: Tajik Communication Ability: Effective Hearing Ability: Hard of Hearing Date Night Caregiver Required: No Beliefs That Will Affect Care: None Current Living Situation: Alone current occupational status: retired Feels Safe at Home: Yes Safety Concerns: Feels Safe At This Time Assistive Devices: Cane and Walker Review of Systems Constitutional: + weakness; no fever Eyes: no problem reported Ear, Nose, Mouth, Throat: no problem reported Respiratory: no cough and no dyspnea Cardiovascular: + edema; no chest pain and no palpitations Gastrointestinal: no abdominal pain, no nausea, no vomiting and no diarrhea/loose stools Genitourinary: no dysuria, no urinary hesitancy or no hematuria Musculoskeletal: no back pain Integumentary: no rash Neurologic: no falls and no confusion Physical Exam Constitutional: not in distress Eyes: PERRL, conjunctivae normal, anicteric sclerae ENMT: external ear and nose normal, oropharynx normal Neck: trachea midline, no thyromegaly Respiratory: normal respiratory effort, lungs clear to auscultation Cardiovascular: Rate/Rhythm: regular rate and regular rhythm Vessels: + JVD (while lying supine) Extremities: + edema (2+ pretibial pitting edema) Gastrointestinal (Abdomen): Inspection/Auscultation: + abdomen distended and normal bowel sounds Percussion/Palpation: abdomen soft; abdomen nontender and no guarding Skin: poor skin turgor involving the arms Neurologic: awake; not confused Results & Data ([facility]) Vital Signs (Past 12 Hours) Vital Signs Temp Pulse Pulse Resp BP BP Pulse Ox 09/25/21 06:18 36.5 C 77 15 111/63 95 09/25/21 05:30 57 L 16 94 09/25/21 04:48 37.0 C 09/25/21 04:45 65 23 101/51 L 94 09/25/21 03:04 64 18 107/52 L 96 09/25/21 02:10 63 16 94 09/25/21 01:53 64 19 100/54 L 96 09/25/21 01:39 36.9 C 88 16 96 Laboratory Results Laboratory Tests 08/27/21 09/25/21 09/25/21 21:48 01:55 01:55 WBC Hgb Hct Plt Count Sodium Potassium Chloride Carbon Dioxide BUN Creatinine Glucose Troponin I High Sens 117.0 H* B-Natriuretic Peptide 1513 H Albumin 3.7 Urine Protein Negative 09/25/21 09/25/21 07:05 07:05 WBC 5.49 Hgb 8.5 L Hct 26.7 L Plt Count 179 Sodium 136 Potassium 3.5 Chloride 97 L Carbon Dioxide 29 BUN 85 H Creatinine 2.43 H Glucose 105 H Troponin I High Sens 134.1 H* B-Natriuretic Peptide Albumin Urine Protein Diagnostic Findings 09/25/21 CXR: 1. Moderate left and small right pleural effusions. 2. Left retrocardiac opacity may represent layering effusion, atelectasis, pneumonia, and/or aspiration. 3. Cardiomegaly. 09/07/21 Renal US ([facility]): R 11.1cm w/ 2 cm and 1.4 cm upper pole simple cysts, 1.1 cm stone in lower pole, no hydro L 12.7cm. No stone or hydronephrosis Bladder - wnl, prostate - wnl PG Care Time/CCT Total # of Minutes Spent Total Time Spent with Patient: Total time spent is greater than 50% in coordination of care (as documented) at patient's floor/unit and/or counseling patient: Coding Level of Care Code 12645 Inpt Consult Level 5 Diagnoses CHF (congestive heart failure) I50.9 Heart failure chronicity: acute Heart failure type: unspecified Chronic kidney disease N18.9 Chronic kidney disease stage: unspecified stage Anemia in chronic kidney disease N18.9; D63.1 (1) CHF (congestive heart failure) Heart failure chronicity: acute Heart failure type: unspecified Qualified Code(s): I50.9 - Heart failure, unspecified (2) Chronic kidney disease Chronic kidney disease stage: unspecified stage Qualified Code(s): N18.9 - Chronic kidney disease, unspecified
--- NOTE | 2021-09-25 09:33 | XRay Report ---
XR chest 1V portable CLINICAL HISTORY: Dyspnea TECHNIQUE: Single frontal radiograph of the chest was obtained. Comparison: Comparison is made to chest one view 08/27/2021 FINDINGS: Median sternotomy wires are unchanged. Cardiomegaly is noted. Calcified aortic knob is seen. There is a left retrocardiac opacity. Moderate left and small right pleural effusions. IMPRESSION: 1. Moderate left and small right pleural effusions. 2. Left retrocardiac opacity may represent layering effusion, atelectasis, pneumonia, and/or aspirat ion. 3. Cardiomegaly. ACT 112: Negative or not required by law. Electronically signed by: Esteban Waddell M.D. 09/25/2021 9:31 AM
--- NOTE | 2021-09-25 10:16 | Cardiology Consultation ---
Date of Consultation September 25, 2021 Assessment & Plan (1) CHF (congestive heart failure): (2) Elevated troponin: (3) PAD (peripheral artery disease): (4) Chronic kidney disease: Complex 86-year-old patient with recent hospitalization secondary to congestive heart failure presents with worsening edema post discharge. Continue Bumex 1 mg twice daily. Follow daily weight, fluid balance, GFR, and electrolytes. Await nephrology input. Blood pressure control is reasonable. No evidence of acute coronary syndrome. Multifactorial anemia (chronic disease, iron deficiency) with hemoglobin down to 8.5gm/dl. Low serum iron and ferritin during most recent hospitalization in early August. Consider IV iron supplementation. Will defer to nephrology and internal medicine. History of Present Illness Reason for Consultation: CHF Requesting Physician: Dr. Motta Attending Physician: Juancho Shay MD History of Present Illness 86-year-old male presented to the emergency department with worsening lower extremity edema. Recently hospitalized at [facility] for nearly 2 weeks. Discharge home approximately 48 hours prior to admission. He was hospitalized here at [facility] in early August due to possible carbon monoxide poisoning and acute decompensated heart failure. Patient reports progressive lower extremity edema since hospital discharge. Compliant with outpatient diuretic therapy. Denies chest discomfort or heaviness. Creatinine near baseline. High-sensitivity troponins are mildly elevated, however, improve when compared to earlier assessment. Fluid balance minimally negative since admission. Denies orthopnea or PND. No palpitations, lightheadedness, or dizziness. Telemetry reveals sinus rhythm in the 60-70s. Allergies Allergy/AdvReac Type Severity Reaction Status Date / Time clonidine Allergy Unknown Verified 09/25/21 02:33 doxazosin [From Cardura] Allergy HIVES and Verified 09/25/21 02:33 ITCHING furosemide [From Lasix] Allergy HIVES and Verified 09/25/21 02:33 ITCHING hydrochlorothiazide Allergy ITCHING Verified 09/25/21 02:33 ketorolac [From Toradol] Allergy ACUTE Verified 09/25/21 02:33 KIDNEY INJURY potassium chloride Allergy HIVES and Verified 09/25/21 02:33 ITCHING lisinopril AdvReac COUGH Verified 09/25/21 02:33 Home Medications Medication Instructions Recorded Confirmed Type ascorbic acid (vitamin C) 1,000 mg 1 g PO DAILY #120 tab 11/24/20 09/25/21 Rx tablet aspirin 81 mg tablet,delayed 81 mg PO DAILY #30 tab 11/24/20 09/25/21 Rx release bumetanide 1 mg tablet 1 mg PO DAILY #30 tab 11/24/20 09/25/21 Rx carvedilol 12.5 mg tablet 12.5 mg PO BID #60 tab 11/24/20 09/25/21 Rx dutasteride 0.5 mg capsule 0.5 mg PO DAILY #30 cap 11/24/20 09/25/21 Rx ezetimibe 10 mg tablet 10 mg PO DAILY #30 tab 11/24/20 09/25/21 Rx losartan 50 mg tablet 50 mg PO BID #60 tab 11/24/20 09/25/21 Rx magnesium oxide 400 mg PO DAILY #30 cap 11/24/20 09/25/21 Rx nifedipine 60 mg tablet,extended 120 mg PO DAILY #30 tab 11/24/20 09/25/21 Rx release 24 hr (Procardia XL) nitroglycerin 0.4 mg sublingual 0.4 mg SUBLINGUAL Q5M PRN #1 tab 11/24/20 09/25/21 Rx tablet (Nitrostat) omega-3 fatty acids 1,000 mg 2,000 mg PO BID #60 cap 11/24/20 09/25/21 Rx capsule (Fish Oil Concentrate) rivaroxaban 2.5 mg tablet (Xarelto) 2.5 mg PO BID #60 tab 11/24/20 09/25/21 Rx rosuvastatin 5 mg tablet 5 mg PO DAILY #30 tab 11/24/20 09/25/21 Rx tamsulosin 0.4 mg capsule 0.8 mg PO DAILY #30 cap 11/24/20 09/25/21 Rx triamcinolone acetonide 0.1 % 1 applic TOPICAL TID PRN #15 g 11/24/20 09/25/21 Rx topical cream vitamin B12 500 mcg-folic acid 400 1 tab PO DAILY #30 tab 11/24/20 09/25/21 Rx mcg tablet docusate sodium 100 mg capsule 100 mg PO BID 12/06/20 09/25/21 History (Colace) zinc 50 mg tablet 50 mg PO DAILY 12/06/20 09/25/21 History nitroglycerin 0.4 mg/hr 1 patch TRANSDERMAL QAM MDD remove 08/27/21 09/25/21 History transdermal 24 hour patch in pm (Nitro-Dur) folic acid 400 mcg tablet 400 mcg PO QAM #30 tab 08/31/21 09/25/21 Rx hydralazine 50 mg tablet 50 mg PO TID #90 tab 08/31/21 09/25/21 Rx menthol 0.44 %-zinc oxide 20.6 % 1 applic TOPICAL TID PRN #113 g 09/05/21 09/25/21 Rx topical ointment (Calmoseptine) cholecalciferol (vitamin D3) 50 50 mcg PO DAILY 09/25/21 09/25/21 History mcg (2,000 unit) tablet (Vitamin D3) ferrous sulfate 134 mg (27 mg 134 mg PO BID 09/25/21 09/25/21 History iron) tablet metolazone 5 mg tablet 5 mg PO Q OTHER DAY 09/25/21 09/25/21 History potassium chloride 20 mEq 40 meq PO DAILY 09/25/21 09/25/21 History tablet,extended release(part/cryst) Patient History Medical History Carotid stenosis Diastolic CHF, chronic Hearing loss Hyperlipidemia Nephrolithiasis Osteoarthritis PAD (peripheral artery disease) Surgical History H/O endarterectomy H/O lithotripsy Hx of CABG S/P colonoscopic polypectomy S/P total knee arthroplasty left Family History Denies family history of Diabetes Kidney disease Social History Smoking Status: Never smoker Hx Alcohol Use: Yes (15 years ago) Hx Substance Use: No Preferred Language: Estonian Communication Ability: Effective Hearing Ability: Hard of Hearing Business Analyst Required: No Beliefs That Will Affect Care: None Current Living Situation: Alone current occupational status: retired Feels Safe at Home: Yes Assistive Devices: Cane and Walker Review of Systems Review of Systems: All systems reviewed & are unremarkable except as noted in Subjective Physical Exam Constitutional: well nourished and + ill appearing Respiratory: no respiratory distress, no labored breathing and no retractions Auscultation: lungs clear to auscultation bilaterally; no crackles, no rales, no rhonchi and no wheezes Cardiovascular: Rate/Rhythm: regular rate and regular rhythm Heart Sounds: normal S1, normal S2 and + murmur (1-2/6 low pitched mid systolic ejection) Extremities: + edema (1+ B/L pretibial edema) Gastrointestinal (Abdomen): Inspection/Auscultation: abdomen normal to inspection and normal bowel sounds; abdomen not distended Percussion/Palpati on: abdomen soft; abdomen nontender, no guarding and abdomen not rigid Neurologic: CN's II-XI intact bilaterally and moves all extremities; no focal motor deficits Motor/Sensory: no tremor Psychiatric: A+Ox3, euthymic affect Results & Data ([facility]) Vital Signs (Past 12 Hours) Vital Signs Temp Pulse Pulse Resp BP BP Pulse Ox 09/25/21 06:18 36.5 C 77 15 111/63 95 09/25/21 05:30 57 L 16 94 09/25/21 04:48 37.0 C 09/25/21 04:45 65 23 101/51 L 94 09/25/21 03:04 64 18 107/52 L 96 09/25/21 02:10 63 16 94 09/25/21 01:53 64 19 100/54 L 96 09/25/21 01:39 36.9 C 88 16 96 (1) CHF (congestive heart failure) Heart failure chronicity: acute Heart failure type: unspecified Qualified Code(s): I50.9 - Heart failure, unspecified (2) Chronic kidney disease Chronic kidney disease stage: unspecified stage Qualified Code(s): N18.9 - Chronic kidney disease, unspecified
--- NOTE | 2021-09-25 13:43 | XRay Report ---
XR chest 1V portable CLINICAL HISTORY: shortness of breath TECHNIQUE: Single frontal radiograph of the chest was obtained. Comparison: Comparison is made to chest radiograph 09/25/2021 FINDINGS: Median sternotomy wires are unchanged. Cardiomegaly is noted. Left retrocardiac airspace opacity is s een. Moderate left and small right pleural effusions again seen. IMPRESSION: 1. Left retrocardiac airspace opacity may represent atelectasis, pneumonia, and/or aspiration, simil ar in appearance to prior exam. 2. Stable pleural effusions. ACT 112: Negative or not required by law. Electronically signed by: Esteban Waddell M.D. 09/25/2021 1:40 PM
--- NOTE | 2021-09-25 16:46 | Hospitalist Progress Note ---
Date of Service September 25, 2021 Assessment & Plan (1) CHF (congestive heart failure): Plan: Per admitting service notes with addendum 1. This 86-year-old male presents with lower extremity edema, [id number] systolic and diastolic congestive heart failure, recent echo showed 45% to 50% EF and grade 3 diastolic dysfunction. The patient is on Bumex 1 mg p.o. daily and metolazone 5 mg every other day. Recently was in [facility] for 2 weeks, discharged last Saturday. Needs to get the records. He says there is a change in his medications. He received IV Bumex 1 mg in the ER. Will continue with IV Bumex 1 mg b.i.d. Continue home metolazone, and potassium supplements. Losartan is on hold probably for DILIP. Will follow daily weights, I's and O's. Consult cardiology in the a.m. for further recommendation. Repeat echo as per Cardiology. 09/25 Continue Bumex 1 mg IV twice a day Continue usual metolazone 5 mg Additional Bumex 1 mg IV given at 1 PM as patient was reporting shortness of breath Desir catheter placed Monitor input and output Cardiology and nephrology consulted 2. Acute kidney injury on chronic kidney disease stage III: Baseline creatinine 1.8 to 2, presently with creatinine of 2.4. Getting IV Bumex. Holding losartan. Will monitor the labs. If any concern, will consult nephrology. 09/25 Clinical Research Director consulted 3.Mild elevation of troponin I high sensitivity to 117, most likely demand ischemia. Will follow serial enzymes, echo as per Cardiology. 09/25 Troponin remained stable at 134x2 readings No chest pain Likely secondary to demand ischemia, CKD 4. History of coronary artery disease, status post coronary artery bypass graft: Continue his home medication of aspirin, Coreg, nitro patch, lovastatin. 5 History of benign prostatic hypertrophy: Recently had prostate surgery, on Flomax. Desir catheter placed for accurate measurements of I's and O's 5. History of hypertension: On Coreg, hydralazine, nifedipine, nitro patch. Holding losartan for acute kidney injury. Spironolactone was stopped last a dmission. The patient is also on Bumex. Will monitor his blood pressure. 6. Hyperlipidemia: On statin. 7. PVD on aspirin and statin. 7. Deep venous thrombosis prophylaxis: On Xarelto. 8. Anemia of chronic kidney disease: On iron supplements. Disposition Pending Lives at home, will need PT and OT evaluation as patient may need senior care Admission and Anticipated Discharge Date Admission Date: September 25, 2021 Subjective Follow-up for acute on chronic systolic and diastolic CHF, etc. Seen resting in bed, comfortable, not in distress on 2 L of oxygen via nasal cannula States breathing is okay after oxygen supplement started No chest pain, palpitations, dizziness, cough, fevers or chills No leg pain No other symptoms Review of Systems Review of Systems: all noted and negative except for above Physical Exam Physical Exam: General- oriented x 3, not in distress, speaks in sentences with no effort or accessory muscle use Head- atraumatic Eyes- PERRL, EOMI, anicteric ENT- oropharynx clear Neck- supple, no JVD, no adenopathy, no thyromegaly; carotids +2/2, no bruits appreciated Lungs-decreased breath sounds at bases, no crackles Heart- normal rate, regular rhythm; no murmur, no gallop, no rub appreciated Abdomen- normal bowel sounds, nondistended, soft, nontender, no masses or hepatosplenomegaly Extremities-2 lower extremity edema, no erythema//tenderness Neuro- alert, oriented x 3; CN 2-12 grossly intact; motor 5/5 bilaterally;sensation 100% on all extremities; no other gross focal neurologic deficits Skin- warm & dry Results & Data Results & Data ([facility]) Vital Signs (Past 12 Hours) Vital Signs Temp Pulse Pulse Resp BP Pulse Ox 09/25/21 06:18 36.5 C 77 15 111/63 95 09/25/21 05:30 57 L 16 94 09/25/21 04:48 37.0 C all noted and reviewed including below (1) CHF (congestive heart failure) Heart failure chronicity: acute Heart failure type: unspecified Qualified Code(s): I50.9 - Heart failure, unspecified
[2021-09-25] MEDS ORDERED: Nursing to Pharmacy Communication SCH (18:15)
[2021-09-26 05:48] LABS: Hematocrit (blood only) 27.4 % (42-52); Hemoglobin 8.7 g/dL (14.0-18.0); Mean Corpuscular Hemoglobin 28.8 pg (25-34); Mean Corpuscular Hgb Conc 31.8 g/dL (32-36); Mean Corpuscular Volume 90.7 fL (80-100); Platelet Count 173 K/uL (130-400); RDW Coefficient of Variation 16.9 % (11.5-14.5); RDW Standard Deviation 56.1 fL (36.4-46.3); Red Blood Count 3.02 M/uL (4.7-6.1); White Blood Count 5.75 K/uL (4.8-10.8)
[2021-09-26 06:03] LABS: BUN Creatinine Ratio 34.3 (10-20); Calcium 8.7 mg/dl (8.5-10.1); Creatinine Clr Calc Pharmacy 19.9 ml/min; Est GFR (African American) 24.4 ml/min; Potassium 3.7 mmol/L (3.5-5.1)
[2021-09-26 06:49] LABS: Ferritin 169.6 ng/ml (8-388)
[2021-09-26] MEDS: BUMETANIDE 1 MG in SYRINGE 0 ML IV SCH ×2 (08:26→17:23)
[2021-09-26] MEDS: RIVAROXABAN 2.5 MG TAB PO SCH ×2 (08:27→20:21)
[2021-09-26] MEDS: hydrALAZINE TAB 50 MG TAB PO SCH (08:27)
[2021-09-26] MEDS: FERROUS SULFATE 325 MG TAB PO SCH ×2 (08:27→20:21)
[2021-09-26] MEDS: LOSARTAN POTASSIUM 50 MG TAB PO SCH (08:27)
[2021-09-26] MEDS: ZINC SULFATE 220 MG CAPSULE PO SCH (08:28)
[2021-09-26] MEDS: ASCORBIC ACID 500 MG TAB PO SCH (08:28)
[2021-09-26] MEDS: FOLIC ACID 400 MCG TAB PO SCH (08:28)
[2021-09-26] MEDS: POTASSIUM CHLORIDE CRTAB 20 MEQ TABCR PO SCH (08:29)
[2021-09-26] MEDS: MAGNESIUM OXIDE 400 MG TAB PO SCH (08:29)
[2021-09-26] MEDS: CYANOCOBALAMIN (B-12) 500 MCG TABLET PO SCH (08:29)
[2021-09-26] MEDS: DOCUSATE SODIUM 100 MG CAP PO SCH ×2 (08:29→20:20)
[2021-09-26] MEDS: EZETIMIBE 10 MG TABLET PO SCH (08:30)
[2021-09-26] MEDS: TAMSULOSIN HCL 0.4 MG CAP PO SCH (08:30)
[2021-09-26] MEDS: carvediloL 12.5 MG TAB PO SCH ×2 (08:30→17:23)
[2021-09-26] MEDS: CHOLECALCIFEROL 1,000 UNITS 25 MCG TAB PO SCH (08:30)
[2021-09-26] MEDS: ROSUVASTATIN CALCIUM 5 MG TAB PO SCH (08:31)
[2021-09-26] MEDS: ASPIRIN 81 MG ECTAB PO SCH (08:31)
[2021-09-26] MEDS: NITROGLYCERIN 0.4 MG/HR PATCH TD SCH ×2 (08:31→08:41)
--- NOTE | 2021-09-26 08:41 | Nephrology Progress Note ---
Date of Service September 26, 2021 Assessment & Plan (1) CHF (congestive heart failure): Plan: * 09/17 echocardiogram reveals evidence of pulmonary HTN * CXR w/bilateral pleural effusions suggestive of CHF * Recommend low Na diet * Procardia has been stopped as this may have contributed to LE swelling. BP remains relatively low * Continue Bumex, Carvedilol, Losartan, Hydralazine * Hold Metolazone as patient is responding to IV Bumex * Monitor I&O closely * Will consider low dose Spironolactone if BP trends up (2) Chronic kidney disease: Plan: * CKD stage G3b/A1 (moderate impairment). His baseline Cr has been 2.0 w/ EGFR 30 cc/min. Urinalysis has been acellular. UPCR has been < 0.2. His renal impairment has been attributed to microvascular disease and chronic R sided heart failure (3) Anemia in chronic kidney disease: Plan: * Primary service has ordered oral iron * Iron saturation 15% w/ ferritin < 200. Will order IV Venofer Admission and Anticipated Discharge Date Admission Date: September 25, 2021 Subjective Mr. Ang was evaluated in his hospital room this morning. He denied fever, angina, dyspnea, flank discomfort or uremic symptoms. He reports that his LE swelling is mildly improved Review of Systems Constitutional: + weakness; no fever Eyes: no problem reported Ear, Nose, Mouth, Throat: no problem reported Respiratory: no cough and no dyspnea Cardiovascular: + edema; no chest pain and no palpitations Gastrointestinal: no abdominal pain, no nausea, no vomiting and no diarrhea/loose stools Genitourinary: no dysuria, no urinary hesitancy or no hematuria Musculoskeletal: no back pain Integumentary: no rash Neurologic: no falls and no confusion Physical Exam Constitutional: not in distress Eyes: PERRL, conjunctivae normal, anicteric sclerae ENMT: external ear and nose normal, oropharynx normal Neck: trachea midline, no thyromegaly Respiratory: normal respiratory effort, lungs clear to auscultation Cardiovascular: Rate/Rhythm: regular rate and regular rhythm Vessels: + JVD (while lying supine) Extremities: + edema (2+ pretibial pitting edema) Gastrointestinal (Abdomen): Inspection/Auscultation: + abdomen distended and normal bowel sounds Percussion/Palpation: abdomen soft; abdomen nontender and no guarding Neurologic: awake; not confused Genitourinary: Desir catheter in place draining clear yellow urine Results & Data ([facility]) Vital Signs (Past 12 Hours) Vital Signs Temp Pulse Resp BP Pulse Ox 09/26/21 04:00 36.8 C 59 L 18 105/55 L 96 09/26/21 00:00 36.5 C 72 20 90/62 L 95 Laboratory Results Laboratory Tests 09/26/21 09/26/21 05:24 05:24 WBC 5.75 Hgb 8.7 L Hct 27.4 L Plt Count 173 Sodium 135 L Potassium 3.7 Chloride 96 L Carbon Dioxide 30 BUN 91 H Creatinine 2.65 H Glucose 107 H Transferrin % Sat 15 L Ferritin 169.6 PG Care Time/CCT Total # of Minutes Spent Total Time Spent with Patient: Total time spent is greater than 50% in coordination of care (as documented) at patient's floor/unit and/or counseling patient: Coding Level of Care Code 35071 Subseq Hosp Care Lvl 3 Diagnoses CHF (congestive heart failure) I50.9 Heart failure chronicity: acute Heart failure type: unspecified Chronic kidney disease N18.9 Chronic kidney disease stage: unspecified stage Anemia in chronic kidney disease N18.9; D63.1 (1) CHF (congestive heart failure) Heart failure chronicity: acute Heart failure type: unspecified Qualified Code(s): I50.9 - Heart failure, unspecified (2) Chronic kidney disease Chronic kidney disease stage: unspecified stage Qualified Code(s): N18.9 - Chronic kidney disease, unspecified
[2021-09-26] MEDS ORDERED: metOLazone 5 MG TABLET PO SCH (09:00)
--- NOTE | 2021-09-26 09:56 | Cardiology Progress Note ---
Date of Service September 26, 2021 Assessment & Plan (1) CHF (congestive heart failure): (2) Elevated troponin: (3) PAD (peripheral artery disease): (4) Chronic kidney disease: Plan: Complex 86-year-old patient with acute on chronic heart failure secondary to mild systolic dysfunction, ischemic heart disease, and grade 3 diastolic dysfunction. Left-sided pleural effusion noted on chest x-ray. Fluid balance mildly improved with IV diuretic therapy. Creatinine trending upward slightly although relatively stable. Appreciate nephrology input. Borderline hypotensive. Procardia and losartan discontinued. Reduce hydralazine to 25mg 3 times daily. Received dose of metolazone in addition to Bumex today. Monitor fluid balance, daily weight, GFR, and electrolytes. Multifactorial anemia (chronic disease, iron deficiency) with hemoglobin down to 8.5gm/dl. Low serum iron and ferritin during most recent hospitalization in early August. Consider IV iron supplementation. Will defer to nephrology and internal medicine. Admission and Anticipated Discharge Date Admission Date: September 25, 2021 Subjective Patient seen and examined at the bedside. Fluid balance -700 cc overnight. Serum creatinine trending upward slightly. Edema unchanged. Most recent echocardiogram performed 08/28/2021 demonstrating mild LV systolic dysfunction, ejection fraction 45-50%, moderate size anterior, and lateral wall motion abnormality with hypokinesis to akinesis of the segments. There is evidence of mild pulmonary hypertension and grade 3 diastolic dysfunction. Patient currently resting comfortably. Subjectively reports improvement in edema. No shortness of breath at rest. Lying supine without dyspnea. Telemetry reveals sinus rhythm. Received dose of metolazone this morning prior to Bumex. Review of Systems Review of Systems: All systems reviewed & are unremarkable except as noted in Subjective Physical Exam Constitutional: well nourished and + ill appearing Respiratory: no respiratory distress, no labored breathing and no retractions Auscultation: + diminished lung sounds (Bases bilateral, poor effort); no crackles, no rales, no rhonchi and no wheezes Cardiovascular: Rate/Rhythm: regular rate and regular rhythm Heart Sounds: normal S1, normal S2 and + murmur (1-2/6 low pitched mid systolic ejection) Extremities: + edema (1+ B/L pretibial edema) Gastrointestinal (Abdomen): Inspection/Auscultation: abdomen normal to inspection and normal bowel sounds; abdomen not distended Percussion/Palpation: abdomen soft; abdomen nontender, no guarding and abdomen not rigid Neurologic: CN's II-XI intact bilaterally and moves all extremities; no focal motor deficits Motor/Sensory: no tremor Psychiatric: A+Ox3, euthymic affect Results & Data ([facility]) Vital Signs (Past 12 Hours) Vital Signs Temp Pulse Resp BP Pulse Ox 09/26/21 04:00 36.8 C 59 L 18 105/55 L 96 09/26/21 00:00 36.5 C 72 20 90/62 L 95 (1) CHF (congestive heart failure) Heart failure chronicity: acute Heart failure type: unspecified Qualified Code(s): I50.9 - Heart failure, unspecified (2) Chronic kidney disease Chronic kidney disease stage: unspecified stage Qualified Code(s): N18.9 - Chronic kidney disease, unspecified
--- NOTE | 2021-09-26 11:00 | Hospitalist Progress Note ---
Date of Service September 26, 2021 Assessment & Plan (1) CHF (congestive heart failure): Plan: Per admitting service notes with addendum 1. This 86-year-old male presents with lower extremity edema, [id number] systolic and diastolic congestive heart failure, recent echo showed 45% to 50% EF and grade 3 diastolic dysfunction. The patient is on Bumex 1 mg p.o. daily and metolazone 5 mg every other day. Recently was in [facility] for 2 weeks, discharged last Saturday. Needs to get the records. He says there is a change in his medications. He received IV Bumex 1 mg in the ER. Will continue with IV Bumex 1 mg b.i.d. Continue home metolazone, and potassium supplements. Losartan is on hold probably for DILIP. Will follow daily weights, I's and O's. Consult cardiology in the a.m. for further recommendation. Repeat echo as per Cardiology. 09/26 negative 805ml fluid balance only crea slightly increased to 2.6 clinically feels he is improving Continue Bumex 1 mg IV twice a day usual metolazone 5 mg ON HOLD today Cardiology and nephrology consulted 2. Acute kidney injury on chronic kidney disease stage III: 09/26 Baseline creatinine 1.8 to 2, admitted with creatinine of 2.4. crea 2.6 today Losartan on hold monitor closely 3.Mild elevation of troponin I high sensitivity to 117, most likely demand ischemia. Will follow serial enzymes, echo as per Cardiology. 09/26 Troponin remained stable at 134x2 readings No chest pain Likely secondary to demand ischemia, CKD 4. History of coronary artery disease, status post coronary artery bypass graft: Continue his home medication of aspirin, Coreg, nitro patch, lovastatin. 5 History of benign prostatic hypertrophy: Recently had prostate surgery, on Flomax. Desir catheter placed for accurate measurements of I's and O's 5. History of hypertension: Holding losartan for acute kidney injury. Nifedipine discontinued in light of leg edema Hydralazine decreased to 25mg TID monitor closely 6. Hyperlipidemia: On statin. 7. PVD on aspirin and statin. 7. Deep venous thrombosis prophylaxis: On Xarelto. 8. Anemia of chronic kidney disease: On iron supplements. Disposition Pending Lives at home, will need PT and OT evaluation as patient may need [facility] Admission and Anticipated Discharge Date Admission Date: September 25, 2021 Subjective Follow-up for acute systolic and diastolic CHF, etc seen resting at the edge of the bed, not in distress on 2 L NC main complaint it posterior neck/upper back pain breathing is improving no chest pain, dyspnea, palpitations, dizziness no other symptoms Review of Systems Review of Systems: all noted and negative except for above Physical Exam Physical Exam: General- oriented x 3, not in distress, speaks in sentences with no effort or accessory muscle use Eyes- anicteric Neck- no JVD Lungs- mild decreased at the bases no wheezing Heart- normal rate, regular rhythm; no murmurs Abdomen- normal bowel sounds, nondistended, soft, nontender Extremities- grade 2 lower extremity edema, no signs of CHF Neuro- alert, oriented x 2; no gross focal neurologic deficits Skin- warm & dry Results & Data Results & Data ([facility]) Vital Signs (Past 12 Hours) Vital Signs Temp Pulse Resp BP Pulse Ox 09/26/21 04:00 36.8 C 59 L 18 105/55 L 96 09/26/21 00:00 36.5 C 72 20 90/62 L 95 all noted and reviewed including below (1) CHF (congestive heart failure) Heart failure chronicity: acute Heart failure type: unspecified Qualified Co de(s): I50.9 - Heart failure, unspecified
[2021-09-26] MEDS: IRON SUCROSE 200 MG in 0.9 % SODIUM CHLORIDE 100 ML IV SCH (11:24)
[2021-09-26] MEDS: hydrALAZINE HCL 25 MG TAB PO SCH ×2 (14:24→20:20)
[2021-09-26 23:00] LABS: Hematocrit (blood only) 27.5 % (42-52); Hemoglobin 8.8 g/dL (14.0-18.0)
[2021-09-27] MEDS: IRON SUCROSE 200 MG in 0.9 % SODIUM CHLORIDE 100 ML IV SCH (07:54)
[2021-09-27] MEDS: hydrALAZINE HCL 25 MG TAB PO SCH ×3 (07:54→20:49)
[2021-09-27] MEDS: DOCUSATE SODIUM 100 MG CAP PO SCH ×2 (07:54→20:49)
[2021-09-27] MEDS: FERROUS SULFATE 325 MG TAB PO SCH ×2 (07:54→20:49)
[2021-09-27] MEDS: RIVAROXABAN 2.5 MG TAB PO SCH ×2 (07:54→20:50)
[2021-09-27] MEDS: CHOLECALCIFEROL 1,000 UNITS 25 MCG TAB PO SCH (07:55)
[2021-09-27] MEDS: EZETIMIBE 10 MG TABLET PO SCH (07:55)
[2021-09-27] MEDS: carvediloL 12.5 MG TAB PO SCH ×2 (07:55→16:34)
[2021-09-27] MEDS: MAGNESIUM OXIDE 400 MG TAB PO SCH (07:55)
[2021-09-27] MEDS: FOLIC ACID 400 MCG TAB PO SCH (07:55)
[2021-09-27] MEDS: TAMSULOSIN HCL 0.4 MG CAP PO SCH (07:55)
[2021-09-27] MEDS: ASPIRIN 81 MG ECTAB PO SCH (07:56)
[2021-09-27] MEDS: POTASSIUM CHLORIDE CRTAB 20 MEQ TABCR PO SCH (07:56)
[2021-09-27] MEDS: ASCORBIC ACID 500 MG TAB PO SCH (07:56)
[2021-09-27] MEDS: ZINC SULFATE 220 MG CAPSULE PO SCH (07:56)
[2021-09-27] MEDS: ROSUVASTATIN CALCIUM 5 MG TAB PO SCH (07:56)
[2021-09-27] MEDS: CYANOCOBALAMIN (B-12) 500 MCG TABLET PO SCH (07:56)
--- NOTE | 2021-09-27 08:11 | Nephrology Progress Note ---
Date of Service September 27, 2021 Assessment & Plan (1) CHF (congestive heart failure): Plan: * 09/17 echocardiogram reveals evidence of pulmonary HTN * CXR w/bilateral pleural effusions suggestive of CHF * Recommend low Na diet * Procardia has been stopped as this may have contributed to LE swelling. BP remains relatively low * Continue Carvedilol and Hydralazine. Will consider low dose Spironolactone if BP trends up * Awaiting am labs. Patient is diuresing well. LE edema is improved. Hold diuretics and monitor UO * Discussed compression stockings w/ patient today. He tried them in the past but stopped as they were uncomfortable (2) Chronic kidney disease: Plan: * CKD stage G3b/A1 (moderate impairment). His baseline Cr has been 2.0 w/ EGFR 30 cc/min. Urinalysis has been acellular. UPCR has been < 0.2. His renal impairment has been attributed to microvascular disease and chronic R sided heart failure (3) Anemia in chronic kidney disease: Plan: * Primary service has ordered oral iron * Iron saturation 15% w/ ferritin < 200 * Day #2 of 5 IV Venofer Admission and Anticipated Discharge Date Admission Date: September 25, 2021 Subjective Mr. Ang was evaluated in his hospital room this morning. He denied fever, angina, dyspnea, flank discomfort or uremic symptoms. He reports that his LE swelling continues to improve. Desir catheter was removed yesterday. He reports brisk UO Review of Systems Constitutional: + weakness; no fever Eyes: no problem reported Ear, Nose, Mouth, Throat: no problem reported Respiratory: no cough and no dyspnea Cardiovascular: + edema; no chest pain and no palpitations Gastrointestinal: no abdominal pain, no nausea, no vomiting and no diarrhea/loose stools Genitourinary: no dysuria, no urinary hesitancy or no hematuria Musculoskeletal: no back pain Integumentary: no rash Neurologic: no falls and no confusion Physical Exam Constitutional: not in distress Eyes: PERRL, conjunctivae normal, anicteric sclerae ENMT: external ear and nose normal, oropharynx normal Neck: trachea midline, no thyromegaly Respiratory: normal respiratory effort, lungs clear to auscultation Cardiovascular: Rate/Rhythm: regular rate and regular rhythm Vessels: + JVD (while lying supine) Extremities: + edema (2+ pretibial pitting edema) Gastrointestinal (Abdomen): Inspection/Auscultation: + abdomen distended and normal bowel sounds Percussion/Palpation: abdomen soft; abdomen nontender and no guarding Neurologic: awake; not confused Results & Data ([facility]) Vital Signs (Past 12 Hours) Vital Signs Temp Pulse Pulse Pulse Resp BP Pulse Ox 09/27/21 07:30 37 C 65 72 20 129/54 L 09/27/21 04:21 36.4 C L 66 22 115/46 L 99 09/26/21 23:28 36.8 C 67 26 H 120/49 L 97 09/26/21 21:45 36.8 C 63 23 109/65 94 Laboratory Results Laboratory Tests 09/26/21 05:24 Sodium 135 L Potassium 3.7 Chloride 96 L Carbon Dioxide 30 BUN 91 H Creatinine 2.65 H Glucose 107 H Laboratory Tests 09/27/21 09:20 Sodium Pending Potassium Pending Chloride Pending Carbon Dioxide Pending BUN Pending Creatinine Pending PG Care Time/CCT Total # of Minutes Spent Total Time Spent with Patient: Total time spent is greater than 50% in coordination of care (as documented) at patient's floor/unit and/or counseling patient: Coding Level of Care Code 53210 Subseq Hosp Care Lvl 3 Diagnoses CHF (congestive heart failure) I50.9 Heart failure chronicity: acute Heart failure type: unspecified Chronic kidney disease N18.9 Chronic kidney disease stage: unspecified stage Anemia in chronic kidney disease N18.9; D63.1 (1) CHF (congestive heart failure) Heart failure chronicity: acute Heart failure type: unspecified Qualified Code(s): I50.9 - Heart failure, unspecified (2) Chronic kidney disease Chronic kidney disease stage: unspecified stage Qualified Code(s): N18.9 - Chronic kidney disease, unspecified
[2021-09-27] MEDS: NITROGLYCERIN 0.4 MG/HR PATCH TD SCH (09:15)
[2021-09-27 10:01] LABS: BUN Creatinine Ratio 37.9 (10-20); Calcium 8.9 mg/dl (8.5-10.1); Creatinine Clr Calc Pharmacy 23.3 ml/min; Est GFR (African American) 29.4 ml/min; Est GFR (Non-African American) 25.4 ml/min; Potassium 4.1 mmol/L (3.5-5.1)
--- NOTE | 2021-09-27 10:06 | Cardiology Progress Note ---
Date of Service September 27, 2021 Assessment & Plan (1) CHF (congestive heart failure): (2) Elevated troponin: (3) PAD (peripheral artery disease): (4) Chronic kidney disease: Plan: Complex 86-year-old patient with acute on chronic heart failure secondary to mild systolic dysfunction, ischemic heart disease, and grade 3 diastolic dysfunction. Left-sided pleural effusion noted on chest x-ray. Fluid balance mildly improved with IV diuretic therapy. Received dose of oral metolazone yesterday. A.m. labs pending. Appreciate nephrology input. Borderline hypotensive. Hold transdermal nitroglycerin today. Restart during hospitalization pending ongoing blood pressure assessment. Losartan and Procardia discontinued. Monitor fluid balance, daily weight, GFR, and electrolytes. Multifactorial anemia (chronic disease, iron deficiency) with hemoglobin down to 8.5gm/dl. Low serum iron and ferritin during most recent hospitalization in early August. Patient received intravenous iron infusion. Management as per internal medicine and nephrology. Admission and Anticipated Discharge Date Admission Date: September 25, 2021 Subjective Patient seen examined the bedside. Edema improving. Fluid balance negative approximately 500 cc. A.m. labs pending. Intermittent hypotension recorded without associated symptoms. Telemetry reveals sinus rhythm. Hydralazine reduced to 25 mg 3 times daily yesterday. Procardia placed on hold. Review of Systems Review of Systems: All systems reviewed & are unremarkable except as noted in Subjective Physical Exam Constitutional: well nourished and + ill appearing Respiratory: no respiratory distress, no labored breathing and no retractions Auscultation: + diminished lung sounds (Bases bilateral, poor effort); no crackles, no rales, no rhonchi and no wheezes Cardiovascular: Rate/Rhythm: regular rate and regular rhythm Heart Sounds: normal S1, normal S2 and + murmur (1-2/6 low pitched mid systolic ejection) Extremities: + edema (1+ B/L pretibial edema) Gastrointestinal (Abdomen): Inspection/Auscultation: abdomen normal to inspection and normal bowel sounds; abdomen not distended Percussion/Palpation: abdomen soft; abdomen nontender, no guarding and abdomen not rigid Neurologic: CN's II-XI intact bilaterally and moves all extremities; no focal motor deficits Motor/Sensory: no tremor Psychiatric: A+Ox3, euthymic affect Results & Data ([facility]) Vital Signs (Past 12 Hours) Vital Signs Temp Pulse Pulse Pulse Resp BP Pulse Ox 09/27/21 07:30 37 C 65 72 20 129/54 L 09/27/21 04:21 36.4 C L 66 22 115/46 L 99 09/26/21 23:28 36.8 C 67 26 H 120/49 L 97 (1) CHF (congestive heart failure) Heart failure chronicity: acute Heart failure type: unspecified Qualified Code(s): I50.9 - Heart failure, unspecified (2) Chronic kidney disease Chronic kidney disease stage: unspecified stage Qualified Code(s): N18.9 - Chronic kidney disease, unspecified
--- NOTE | 2021-09-27 10:35 | Urology Consultation ---
Date of Consultation September 27, 2021 Assessment & Plan (1) Hematuria: 86yo M with multiple comorbidities who presented with worsening LE edema and admitted secondary to CHF, CKD, elevated troponin. Patient had a Desir catheter placed for strict I&O, however this was removed yesterday per his re quest. Upon removal, it was noted that a small amount of water remained in the Desir balloon and he subsequently developed gross hematuria. Urology consulted for hematuria after catheter removal. - Pt afebrile, hemodynamically stable. - Recent labs reviewed - Wbc 5.75, Hemoglobin 8.8, Creatinine 2.27 (2.65 yesterday). - Hematuria secondary to trauma from cath removal- Now resolved. - Pt voiding without issue, urine is clear yellow today. - Continue to monitor urine output and ability to spontaneously void, bladder scan as needed. - Continue Flomax. - Pt follows with Dr. Macias and can continue care with his primary urologist following discharge. - Thank you for allowing us to participate in the acute care of Mr. Ang. Please reconsult us with additional questions, concerns or changes in patient status. Supervising Physician Co-Signing Physician Notes I have discussed Mr. Ang's case with FREDA Robertson and agree with the above documentation. He had some hematuria after potentially traumatic Desir catheter removal. He is voiding well and urine has cleared. He can follow-up with his home urologist as an outpatient. Please contact urology with any questions or concerns. History of Present Illness Reason for Consultation: Hematuria after cath removal Attending Physician: Eddie Rojas MD History of Present Illness 86 year-old male patient with a past medical history including chronic systolic and diastolic CHF, chronic kidney disease stage III, baseline creatinine of 1.8 to 2, BPH, history of kidney stones, history of carotid stenosis, status post bilateral endarterectomies, history of CAD, status post CABG performed at [facility] in 1995, hypertension, hyperlipidemia, peripheral vascular disease, history of impaired fasting glucose, anemia,conduction disorder of heart, pernicious anemia, gastritis, osteoarthritis who presented with worsening lower extremity edema and admitted secondary to CHF, DILIP on CKD, and elevated troponin. Per chart review, pt had a Desir catheter placed during this admission for accurate measurements of I's and O's. Pt then requested the catheter to be removed yesterday (09/26). The Desir catheter was removed and it was noted that there was a small amount of water still in the balloon upon removal and he began bleeding a moderate amount. Urology was consulted for hematuria after Desir catheter removal. Pt examined at bedside this AM. Asleep on arrival, awakened to name. No acute distress. Denies any pain or discomfort at present. Denies fevers, chills, nausea, or vomiting. Reports a small amount of bleeding following the catheter removal yesterday which has now resolved. Denies hematuria and dysuria. Denies pain or discomfort with voiding. Feels he is emptying his bladder well. Urine is clear yellow in urinal. Pt follows with Dr. Macias. Hx of BPH and underwent a prostate procedure a few months ago per his report. He is currently on Flomax. Denies hx of prostate cancer. Allergies Allergy/AdvReac Type Severity Reaction Status Date / Time clonidine Allergy Unknown Verified 09/25/21 02:33 doxazosin [From Cardura] Allergy HIVES and Verified 09/25/21 02:33 ITCHING furosemide [From Lasix] Allergy HIVES and Verified 09/25/21 02:33 ITCHING hydrochlorothiazide Allergy ITCHING Verified 09/25/21 02:33 ketorolac [From Toradol] Allergy ACUTE Verified 09/25/21 02:33 KIDNEY INJURY potassium chloride Allergy HIVES and Verified 09/25/21 02:33 ITCHING lisinopril AdvReac COUGH Verified 09/25/21 02:33 Home Medications Medication Instructions Recorded Confirmed Type ascorbic acid (vitamin C) 1,000 mg 1 g PO DAILY #120 tab 11/24/20 09/25/21 Rx tablet aspirin 81 mg tablet,delayed 81 mg PO DAILY #30 tab 11/24/20 09/25/21 Rx release bumetanide 1 mg tablet 1 mg PO DAILY #30 tab 11/24/20 09/25/21 Rx carvedilol 12.5 mg tablet 12.5 mg PO BID #60 tab 11/24/20 09/25/21 Rx dutasteride 0.5 mg capsule 0.5 mg PO DAILY #30 cap 11/24/20 09/25/21 Rx ezetimibe 10 mg tablet 10 mg PO DAILY #30 tab 11/24/20 09/25/21 Rx losartan 50 mg tablet 50 mg PO BID #60 tab 11/24/20 09/25/21 Rx magnesium oxide 400 mg PO DAILY #30 cap 11/24/20 09/25/21 Rx nifedipine 60 mg tablet,extended 120 mg PO DAILY #30 tab 11/24/20 09/25/21 Rx release 24 hr (Procardia XL) nitroglycerin 0.4 mg sublingual 0.4 mg SUBLINGUAL Q5M PRN #1 tab 11/24/20 09/25/21 Rx tablet (Nitrostat) omega-3 fatty acids 1,000 mg 2,000 mg PO BID #60 cap 11/24/20 09/25/21 Rx capsule (Fish Oil Concentrate) rivaroxaban 2.5 mg tablet (Xarelto) 2.5 mg PO BID #60 tab 11/24/20 09/25/21 Rx rosuvastatin 5 mg tablet 5 mg PO DAILY #30 tab 11/24/20 09/25/21 Rx tamsulosin 0.4 mg capsule 0.8 mg PO DAILY #30 cap 11/24/20 09/25/21 Rx triamcinolone acetonide 0.1 % 1 applic TOPICAL TID PRN #15 g 11/24/20 09/25/21 Rx topical cream vitamin B12 500 mcg-folic acid 400 1 tab PO DAILY #30 tab 11/24/20 09/25/21 Rx mcg tablet docusate sodium 100 mg capsule 100 mg PO BID 12/06/20 09/25/21 History (Colace) zinc 50 mg tablet 50 mg PO DAILY 12/06/20 09/25/21 History nitroglycerin 0.4 mg/hr 1 patch TRANSDERMAL QAM MDD remove 08/27/21 09/25/21 History transdermal 24 hour patch in pm (Nitro-Dur) folic acid 400 mcg tablet 400 mcg PO QAM #30 tab 08/31/21 09/25/21 Rx hydralazine 50 mg tablet 50 mg PO TID #90 tab 08/31/21 09/25/21 Rx menthol 0.44 %-zinc oxide 20.6 % 1 applic TOPICAL TID PRN #113 g 09/05/21 09/25/21 Rx topical ointment (Calmoseptine) cholecalciferol (vitamin D3) 50 50 mcg PO DAILY 09/25/21 09/25/21 History mcg (2,000 unit) tablet (Vitamin D3) ferrous sulfate 134 mg (27 mg 134 mg PO BID 09/25/21 09/25/21 History iron) tablet metolazone 5 mg tablet 5 mg PO Q OTHER DAY 09/25/21 09/25/21 History potassium chloride 20 mEq 40 meq PO DAILY 09/25/21 09/25/21 History tablet,extended release(part/cryst) Patient History Medical History (Updated 09/27/21 @ 11:41 by FREDA Yao) Carotid stenosis Diastolic CHF, chronic Hearing loss Hematuria Hyperlipidemia Nephrolithiasis Osteoarthritis PAD (peripheral artery disease) Surgical History H/O endarterectomy H/O lithotripsy Hx of CABG S/P colonoscopic polypectomy S/P total knee arthroplasty left Family History Denies family history of Diabetes Kidney disease Social History Smoking Status: Never smoker Hx Alcohol Use: Yes (15 years ago) Hx Substance Use: No Preferred Language: Danish Communication Ability: Effective Hearing Ability: Hard of Hearing [place] Required: No Beliefs That Will Affect Care: None Current Living Situation: Alone current occupational status: retired Feels Safe at Home: Yes Assistive Devices: Cane and Walker Review of Systems 2 Review of Systems: All systems reviewed & are unremarkable except as noted in HPI & below Physical Exam Constitutional: cooperative and comfortable; no acute distress Neck: normal visual inspection Respiratory: normal respiratory effort; no respiratory distress and no labored breathing Gastrointestinal (Abdomen): Inspection/Auscultation: abdomen normal to inspection; abdomen not distended Musculoskeletal: Head/Neck/Chest: normocephalic Skin: No visible rashes or lesions to exposed skin areas Neurologic: moves all extremities and awake Psychiatric: Orientation: alert and oriented x 3 Genitourinary: no CVA tenderness [facility]) Vital Signs (Past 12 Hours) Vital Signs Temp Pulse Pulse Pulse Resp BP Pulse Ox 09/27/21 07:30 37 C 65 72 20 129/54 L 09/27/21 04:21 36.4 C L 66 22 115/46 L 99 09/26/21 23:28 36.8 C 67 26 H 120/49 L 97 PG Care Time/CCT Total # of Minutes Spent Total Time Spent with Patient: Total time spent is greater than 50% in coordination of care (as documented) at patient's floor/unit and/or counseling patient: Coding Level of Care Code 90491 Initial Inpt Care Lvl 2 Diagnoses Hematuria R31.9
--- NOTE | 2021-09-27 17:36 | Hospitalist Progress Note ---
Date of Service September 27, 2021 Assessment & Plan (1) CHF (congestive heart failure): Plan: Patient is an 86 yr male with H/O lower extremity edema, [id number] systolic and diastolic congestive heart failure, recent echo showed 45% to 50% EF and grade 3 diastolic dysfunction on diuretics ( Bumex 1 mg p.o. daily and metolazone 5 mg every other day). Recently was hospitalized in [facility] for 2 weeks presents with history of worsening lower extremity edema. Acute systolic/diastolic CHF Bilateral pleural effusion Pulmonary hypertension --CXR:Moderate left and small right pleural effusions. Left retrocardiac opacity may represent layering effusion, atelectasis, pneumonia, and/or aspiration. Cardiomegaly. Nifedipine discontinued as likely contributing to lower extremity edema Low-sodium diet Monitor I's and O's, daily weight Appreciate cardiology, nephrology input Received IV Bumex Continue diuretics as able Acute kidney injury on chronic kidney disease stage III: Baseline Cr 1.8 to 2 Cr: 2.65 >2.27 Monitor renal function Hematuria Likely due to Traumatic Catheter Resolved Appreciate Urology Input Monitor CBC Mild elevation of troponin Most likely demand ischemia in setting of CKD Denies chest Pain CAD S/P CABG Continue Aspirin, Coreg, nitro patch, lovastatin. Anemia of CKD Continue IV iron Also on oral supplement Monitor BPH Continue Flomax Bladder scan as needed HTN Hold losartan due to DILIP Continue current meds Nifedipine discontinued due to leg edema Hyperlipidemia: On statin PVD on aspirin and statin DVT Px: On Xarelto Code Status Full Code Disposition May need SNF Admission and Anticipated Discharge Date Admission Date: September 25, 2021 Subjective Patient is seen and examined at bedside Leg swelling, dyspnea slowly improving States having some orthopnea intermittently Hematuria resolved Denies any other complaints Review of Systems Review of Systems: All systems reviewed & are unremarkable except as noted in Subjective Physical Exam Physical Exam: Physical Exam: Vitals signs as noted above General Appearance:Moderately built and nourished, no apparent distress Head: normocephalic, Atraumatic, +Hearing Impairment Eyes: normal inspection, EOMI Neck: supple, Trachea midline Respiratory/Chest: Decreased breath sounds, CTA, No accessory muscle use Cardiovascular: S1, S2, + murmur Abdomen/GI:Soft, Non tender, Bowel sounds present Extremities/Musculoskelatal:normal inspection, B/L LE edema Neurologic/Psych:AAOX3, grossly no focal neurological deficits Skin: normal color, warm Results & Data Results & Data ([facility]) Vital Signs (Past 12 Hours) Vital Signs Temp Pulse Pulse Pulse Resp BP Pulse Ox 09/27/21 17:01 60 09/27/21 16:34 63 127/62 09/27/21 14:43 36.8 C 61 20 102/70 94 09/27/21 11:42 36.5 C 67 20 116/57 L 96 09/27/21 07:30 37 C 65 72 20 129/54 L Laboratory Results Short CBC 09/26/21 Range/Units 22:54 Hgb 8.8 L (14.0-18.0) g/dL Hct 27.5 L (42-52) % BMP 09/27/21 09:20 Sodium 135 L Potassium 4.1 Chloride 97 L Carbon Dioxide 29 BUN 86 H Creatinine 2.27 H D Glucose 122 H Calcium 8.9 (1) CHF (congestive heart failure) Heart failure chronicity: acute Heart failure type: unspecified Qualified Code(s): I50.9 - Heart failure, unspecified
[2021-09-28] MEDS ORDERED: BUMETANIDE 1 MG in SYRINGE 0 ML IV ONE (04:45)
[2021-09-28 05:52] LABS: Hematocrit (blood only) 29.7 % (42-52); Hemoglobin 9.5 g/dL (14.0-18.0); Mean Corpuscular Volume 90.5 fL (80-100); Mean Platelet Volume 11.3 fL (7.4-10.4); Platelet Count 180 K/uL (130-400); RDW Coefficient of Variation 17.1 % (11.5-14.5); RDW Standard Deviation 56.4 fL (36.4-46.3); Red Blood Count 3.28 M/uL (4.7-6.1); White Blood Count 6.34 K/uL (4.8-10.8)
[2021-09-28 06:20] LABS: BUN Creatinine Ratio 42.3 (10-20); Est GFR (African American) 35.1 ml/min; Est GFR (Non-African American) 30.3 ml/min; Potassium 4.1 mmol/L (3.5-5.1)
[2021-09-28 06:21] LABS: Magnesium 2.6 mg/dl (1.7-2.4)
--- NOTE | 2021-09-28 07:40 | XRay Report ---
XR chest 1V portable CLINICAL HISTORY: Shortness of breath. COMPARISON STUDY: Chest CT August 28, 2021. Chest radiograph September 25, 2021. FINDINGS: Median sternotomy wires are noted. Cardiomegaly is unchanged. Small bilateral pleural effus ions are noted. There is no pneumothorax. Fissural fluid along the minor fissure has increased. Pulmo nary edema has progressed. IMPRESSION: 1. Progression of pulmonary edema. 2. Small bilateral pleural effusions with associated bibasilar opacities. ACT 112: Negative or not required by law. Electronically signed by: Nino Lyman M.D. 09/28/2021 7:38 AM
[2021-09-28] MEDS: carvediloL 12.5 MG TAB PO SCH ×2 (08:26→17:26)
[2021-09-28] MEDS: ASPIRIN 81 MG ECTAB PO SCH (08:32)
[2021-09-28] MEDS: CHOLECALCIFEROL 1,000 UNITS 25 MCG TAB PO SCH (08:32)
[2021-09-28] MEDS: CYANOCOBALAMIN (B-12) 500 MCG TABLET PO SCH (08:32)
[2021-09-28] MEDS: ASCORBIC ACID 500 MG TAB PO SCH (08:32)
[2021-09-28] MEDS: DOCUSATE SODIUM 100 MG CAP PO SCH ×2 (08:33→21:10)
[2021-09-28] MEDS: ROSUVASTATIN CALCIUM 5 MG TAB PO SCH (08:33)
[2021-09-28] MEDS: EZETIMIBE 10 MG TABLET PO SCH (08:33)
[2021-09-28] MEDS: ZINC SULFATE 220 MG CAPSULE PO SCH (08:33)
[2021-09-28] MEDS: hydrALAZINE HCL 25 MG TAB PO SCH ×3 (08:33→21:11)
[2021-09-28] MEDS: FERROUS SULFATE 325 MG TAB PO SCH ×2 (08:33→21:11)
[2021-09-28] MEDS: TAMSULOSIN HCL 0.4 MG CAP PO SCH (08:33)
[2021-09-28] MEDS: FOLIC ACID 400 MCG TAB PO SCH (08:33)
[2021-09-28] MEDS: MAGNESIUM OXIDE 400 MG TAB PO SCH (08:33)
[2021-09-28] MEDS: RIVAROXABAN 2.5 MG TAB PO SCH ×2 (08:34→21:12)
[2021-09-28] MEDS: POTASSIUM CHLORIDE CRTAB 20 MEQ TABCR PO SCH (08:34)
[2021-09-28] MEDS: IRON SUCROSE 200 MG in 0.9 % SODIUM CHLORIDE 100 ML IV SCH (08:35)
--- NOTE | 2021-09-28 08:37 | Nephrology Progress Note ---
Date of Service September 28, 2021 Assessment & Plan (1) CHF (congestive heart failure): Plan: * 09/17 echocardiogram reveals evidence of pulmonary HTN * CXR w/bilateral pleural effusions suggestive of CHF * Recommend low Na diet * Procardia has been stopped as this may have contributed to LE swelling. BP remains relatively low * Continue Carvedilol and Hydralazine. Will consider low dose Spironolactone if BP trends up * Cr is back to baseline. LE edema is improved. Will resume Bumex 1 mg po daily to promote continued diuresis (2) Chronic kidney disease: Plan: * CKD stage G3b/A1 (moderate impairment). His baseline Cr has been 2.0 w/ EGFR 30 cc/min. Urinalysis has been acellular. UPCR has been < 0.2. His renal impairment has been attributed to microvascular disease and chronic R sided heart failure (3) Anemia in chronic kidney disease: Plan: * Primary service has ordered oral iron * Iron saturation 15% w/ ferritin < 200 * Day #3 of 5 IV Venofer Admission and Anticipated Discharge Date Admission Date: September 25, 2021 Subjective Mr. Ang was evaluated in his hospital room this morning. He reports that his LE swelling continues to improve. He reports brisk UO Review of Systems Constitutional: no fever Eyes: no problem reported Ear, Nose, Mouth, Throat: no problem reported Respiratory: no cough and no dyspnea Cardiovascular: + edema; no chest pain and no palpitations Gastrointestinal: no abdominal pain, no nausea, no vomiting and no diarrhea/loose stools Genitourinary: no dysuria, no urinary hesitancy or no hematuria Musculoskeletal: no back pain Integumentary: no rash Neurologic: no falls and no confusion Physical Exam Constitutional: not in distress Eyes: PERRL, conjunctivae normal, anicteric sclerae ENMT: external ear and nose normal, oropharynx normal Neck: trachea midline, no thyromegaly Respiratory: normal respiratory effort, lungs clear to auscultation Cardiovascular: Rate/Rhythm: regular rate and regular rhythm Vessels: + JVD (while lying supine) Extremities: + edema (2+ pretibial pitting edema) Gastrointestinal (Abdomen): Inspection/Auscultation: + abdomen distended and normal bowel sounds Percussion/Palpation: abdomen soft; abdomen nontender and no guarding Neurologic: awake; not confused Results & Data ([facility]) Vital Signs (Past 12 Hours) Vital Signs Temp Pulse Pulse Resp BP Pulse Ox 09/28/21 08:00 36.5 C 67 20 142/56 H 99 09/28/21 03:56 36.5 C 58 L 18 127/77 100 09/28/21 00:24 59 L 09/28/21 00:21 36.8 C 55 L 17 105/51 L 100 Laboratory Results Laboratory Tests 09/28/21 09/28/21 05:29 05:29 WBC 6.34 Hgb 9.5 L Hct 29.7 L Plt Count 180 Sodium 135 L Potassium 4.1 Chloride 97 L Carbon Dioxide 28 BUN 83 H Creatinine 1.96 H D Glucose 118 H PG Care Time/CCT Total # of Minutes Spent Total Time Spent with Patient: Total time spent is greater than 50% in coordination of care (as documented) at patient's floor/unit and/or counseling patient: Coding Diagnoses CHF (congestive heart failure) I50.9 Heart failure chronicity: acute Heart failure type: unspecified Chronic kidney disease N18.9 Chronic kidney disease stage: unspecified stage Anemia in chronic kidney disease N18.9; D63.1 (1) CHF (congestive heart failure) Heart failure chronicity: acute Heart failure type: unspecified Qualified Code(s): I50.9 - Heart failure, unspecified (2) Chronic kidney disease Chronic kidney disease stage: unspecified stage Qualified Code(s): N18.9 - Chronic kidney disease, unspecified
--- NOTE | 2021-09-28 11:04 | Cardiology Progress Note ---
Date of Service September 28, 2021 Assessment & Plan (1) CHF (congestive heart failure): (2) Elevated troponin: (3) PAD (peripheral artery disease): (4) Chronic kidney disease: Plan: Complex 86-year-old patient with acute on chronic heart failure secondary to mild systolic dysfunction, ischemic heart disease, and grade 3 diastolic dysfunction. Left-sided pleural effusion noted on chest x-ray. Renal function improving per a.m. labs although subjectively patient noting dyspnea overnight. He received 1 dose of Bumex. Agree with additional dose of Bumex today at 11 AM. Procardia, losartan, and transdermal nitroglycerin patch on hold. Blood pressure has improved. I will restart Transdermal nitroglycerin today. Monitor fluid balance, daily weight, GFR, and electrolytes. Multifactorial anemia (chronic disease, iron deficiency) with hemoglobin down to 8.5gm/dl. Low serum iron and ferritin during most recent hospitalization in early August. Patient received intravenous iron infusion. Management as per internal medicine and nephrology. Admission and Anticipated Discharge Date Admission Date: September 25, 2021 Subjective 86-year-old patient seen and examined at the bedside. Reports constipation and dyspnea today. Received a dose of IV Bumex overnight. Fluid balance -1300 cc. Creatinine trending downward. Edema unchanged. Review of Systems Review of Systems: All systems reviewed & are unremarkable except as noted in Subjective Results & Data ([facility]) Vital Signs (Past 12 Hours) Vital Signs Temp Pulse Pulse Resp BP Pulse Ox 09/28/21 08:00 36.5 C 67 20 142/56 H 99 09/28/21 03:56 36.5 C 58 L 18 127/77 100 09/28/21 00:24 59 L 09/28/21 00:21 36.8 C 55 L 17 105/51 L 100 Laboratory Results CBC 09/28/21 Range/Units 05:29 WBC 6.34 (4.8-10.8) K/uL RBC 3.28 L (4.7-6.1) M/uL Hgb 9.5 L (14.0-18.0) g/dL Hct 29.7 L (42-52) % Plt Count 180 (130-400) K/uL Comprehensive Metabolic Panel 09/28/21 Range/Units 05:29 Sodium 135 L (136-145) mmol/L Potassium 4.1 (3.5-5.1) mmol/L Chloride 97 L (98-107) mmol/L Carbon Dioxide 28 (21-32) mmol/L BUN 83 H (6-23) mg/dl Creatinine 1.96 H D (0.6-1.4) mg/dl Glucose 118 H (70-99(Fasting)) mg/dl Calcium 9.0 (8.5-10.1) mg/dl Intake and Output 09/27/21 09/28/21 09/28/21 22:59 06:59 14:59 Intake Total 110 / 110 Output Total 400 / 1250 350 / 1250 201 / 201 Balance -400 / -1140 -350 / -1140 -91 / -91 Intake: IV 110 / 110 Iron Sucrose 200 mg In 0.9 % 110 / 110 Sodium Chloride 100 ml @ 220 mls/hr IV DAILY [facility] Rx#: [id number] Output: Urine 400 / 1250 350 / 1250 200 / 200 # Bowel Movements Other: Weight 77.2 kg Weight Measurement Method Built in [facility] (1) CHF (congestive heart failure) Heart failure chronicity: acute Heart failure type: unspecified Qualified Code(s): I50.9 - Heart failure, unspecified (2) Chronic kidney disease Chronic kidney disease stage: unspecified stage Qualified Code(s): N18.9 - Chronic kidney disease, unspecified
[2021-09-28] MEDS: NITROGLYCERIN 0.4 MG/HR PATCH TD SCH (11:18)
[2021-09-28] MEDS: BUMETANIDE 1 MG TAB PO SCH (11:24)
[2021-09-28] MEDS: LIDOCAINE 5% 1 PATCH TD SCH (17:25)
--- NOTE | 2021-09-28 17:29 | Hospitalist Progress Note ---
Date of Service September 28, 2021 Assessment & Plan (1) CHF (congestive heart failure): Plan: Patient is an 86 yr male with H/O lower extremity edema, [id number] systolic and diastolic congestive heart failure, recent echo showed 45% to 50% EF and grade 3 diastolic dysfunction on diuretics ( Bumex 1 mg p.o. daily and metolazone 5 mg every other day). Recently was hospitalized in [facility] for 2 weeks presents with history of worsening lower extremity edema. Acute systolic/diastolic CHF Bilateral pleural effusion Pulmonary hypertension --CXR:Moderate left and small right pleural effusions. Left retrocardiac opacity may represent layering effusion, atelectasis, pneumonia, and/or aspiration. Cardiomegaly. Nifedipine discontinued as likely contributing to lower extremity edema Low-sodium diet Monitor I's and O's, daily weight Appreciate cardiology, nephrology input Received IV Bumex Continue Bumex 1 mg p.o. daily Plan to be started on spironolactone if blood pressure improves Nitroglycerin restarted Acute kidney injury on chronic kidney disease stage III: Baseline Cr 1.8 to 2 Cr: 2.65 >2.27>1.96 Monitor renal function Hematuria Likely due to Traumatic Catheter Resolved Appreciate Urology Input Monitor CBC Mild elevation of troponin Most likely demand ischemia in setting of CKD Denies chest Pain CAD S/P CABG Continue Aspirin, Coreg, nitro patch, lovastatin. Anemia of CKD Continue IV iron Also on oral supplement Monitor BPH Continue Flomax Bladder scan as needed HTN Hold losartan due to DILIP Continue current meds Nifedipine discontinued due to leg edema Hyperlipidemia: On statin PVD on aspirin and statin DVT Px: On Xarelto Code Status Full Code Disposition May need SNF Admission and Anticipated Discharge Date Admission Date: September 25, 2021 Subjective Patient is seen and examined at bedside Less dyspnea today Reports chronic back pain Poor appetite Leg edema slowly improving No other complaints Review of Systems Review of Systems: All systems reviewed & are unremarkable except as noted in Subjective Physical Exam Physical Exam: Physical Exam: Vitals signs as noted above General Appearance:Moderately built and nourished, no apparent distress Head: normocephalic, Atraumatic, +Hearing Impairment Eyes: normal inspection, EOMI Neck: supple, Trachea midline Respiratory/Chest: Decreased breath sounds, L basal crackles, No accessory muscle use Cardiovascular: S1, S2, + murmur Abdomen/GI:Soft, Non tender, Bowel sounds present Extremities/Musculoskelatal:normal inspection, B/L LE edema improving Neurologic/Psych:AAOX3, grossly no focal neurological deficits Skin: normal color, warm Results & Data Results & Data ([facility]) Vital Signs (Past 12 Hours) Vital Signs Temp Pulse Resp BP Pulse Ox 09/28/21 11:35 36.3 C L 65 18 103/49 L 98 09/28/21 08:00 36.5 C 67 20 142/56 H 99 Laboratory Results Short CBC 09/28/21 Range/Units 05:29 WBC 6.34 (4.8-10.8) K/uL Hgb 9.5 L (14.0-18.0) g/dL Hct 29.7 L (42-52) % Plt Count 180 (130-400) K/uL BMP 09/28/21 05:29 Sodium 135 L Potassium 4.1 Chloride 97 L Carbon Dioxide 28 BUN 83 H Creatinine 1.96 H D Glucose 118 H Calcium 9.0 (1) CHF (congestive heart failure) Heart failure chronicity: acute Heart failure type: unspecified Qualified Code(s): I50.9 - Heart failure, unspecified
[2021-09-29 06:43] LABS: BUN Creatinine Ratio 37.7 (10-20); Calcium 8.7 mg/dl (8.5-10.1); Creatinine Clr Calc Pharmacy 26.5 ml/min; Est GFR (African American) 34.5 ml/min; Est GFR (Non-African American) 29.7 ml/min; Potassium 3.9 mmol/L (3.5-5.1)
[2021-09-29] MEDS: EZETIMIBE 10 MG TABLET PO SCH (07:45)
[2021-09-29] MEDS: carvediloL 12.5 MG TAB PO SCH (07:45)
[2021-09-29] MEDS: TAMSULOSIN HCL 0.4 MG CAP PO SCH (07:45)
[2021-09-29] MEDS: CYANOCOBALAMIN (B-12) 500 MCG TABLET PO SCH (07:45)
[2021-09-29] MEDS: FOLIC ACID 400 MCG TAB PO SCH (07:46)
[2021-09-29] MEDS: ZINC SULFATE 220 MG CAPSULE PO SCH (07:46)
[2021-09-29] MEDS: ASCORBIC ACID 500 MG TAB PO SCH (07:46)
[2021-09-29] MEDS: FERROUS SULFATE 325 MG TAB PO SCH (07:46)
[2021-09-29] MEDS: DOCUSATE SODIUM 100 MG CAP PO SCH (07:46)
[2021-09-29] MEDS: hydrALAZINE HCL 25 MG TAB PO SCH ×2 (07:47→14:07)
[2021-09-29] MEDS: RIVAROXABAN 2.5 MG TAB PO SCH (07:47)
[2021-09-29] MEDS: MAGNESIUM OXIDE 400 MG TAB PO SCH (07:47)
[2021-09-29] MEDS: BUMETANIDE 1 MG TAB PO SCH (07:47)
[2021-09-29] MEDS: POTASSIUM CHLORIDE CRTAB 20 MEQ TABCR PO SCH (07:47)
[2021-09-29] MEDS: ASPIRIN 81 MG ECTAB PO SCH (07:48)
[2021-09-29] MEDS: LIDOCAINE 5% 1 PATCH TD SCH (07:48)
[2021-09-29] MEDS: CHOLECALCIFEROL 1,000 UNITS 25 MCG TAB PO SCH (07:48)
[2021-09-29] MEDS: ROSUVASTATIN CALCIUM 5 MG TAB PO SCH (07:48)
[2021-09-29] MEDS: NITROGLYCERIN 0.4 MG/HR PATCH TD SCH (07:49)
[2021-09-29] MEDS: IRON SUCROSE 200 MG in 0.9 % SODIUM CHLORIDE 100 ML IV SCH (07:57)
--- NOTE | 2021-09-29 08:27 | Nephrology Progress Note ---
Date of Service September 29, 2021 Assessment & Plan (1) CHF (congestive heart failure): Plan: * 09/17 echocardiogram reveals evidence of pulmonary HTN * CXR w/bilateral pleural effusions suggestive of CHF * Recommend low Na diet * Procardia has been stopped as this may have contributed to LE swelling. BP remains relatively low * Continue Carvedilol and Hydralazine. Consider low dose Spironolactone if BP trends up * Cr is back to baseline. LE edema is improved. Continue Bumex 1 mg po daily to promote continued diuresis * Consider LE compression stockings * No further Nephrology evaluation indicated at this time. Will sign off. Please have patient follow up w/ Dr. Alfaro within 1 - 2 weeks of hospital discharge ([phone]) (2) Chronic kidney disease: Plan: * CKD stage G3b/A1 (moderate impairment). His baseline Cr has been 2.0 w/ EGFR 30 cc/min. Urinalysis has been acellular. UPCR has been < 0.2. His renal impairment has been attributed to microvascular disease and chronic R sided heart failure (3) Anemia in chronic kidney disease: Plan: * Primary service has ordered oral iron * Iron saturation 15% w/ ferritin < 200 * Day #4 of 5 IV Venofer * Hgb is now trending up Admission and Anticipated Discharge Date Admission Date: September 25, 2021 Subjective Mr. Ang was evaluated in his hospital room this morning. He is voiding easily on his own. He reports that his LE swelling continues to improve. Mr. Ang was breathing comfortably on RA Review of Systems Constitutional: no fever Eyes: no problem reported Ear, Nose, Mouth, Throat: no problem reported Respiratory: no cough and no dyspnea Cardiovascular: + edema; no chest pain and no palpitations Gastrointestinal: no abdominal pain, no nausea, no vomiting and no diarrhea/loose stools Genitourinary: no dysuria, no urinary hesitancy or no hematuria Musculoskeletal: no back pain Integumentary: no rash Neurologic: no falls and no confusion Physical Exam Constitutional: not in distress Eyes: PERRL, conjunctivae normal, anicteric sclerae ENMT: external ear and nose normal, oropharynx normal Neck: trachea midline, no thyromegaly Respiratory: normal respiratory effort, lungs clear to auscultation Cardiovascular: Rate/Rhythm: regular rate and regular rhythm Vessels: + JVD (while lying supine) Extremities: + edema (2+ pretibial pitting edema) Gastrointestinal (Abdomen): Inspection/Auscultation: + abdomen distended and normal bowel sounds Percussion/Palpation: abdomen soft; abdomen nontender and no guarding Neurologic: awake; not confused Results & Data ([facility]) Vital Signs (Past 12 Hours) Vital Signs Temp Pulse Pulse Pulse Resp BP BP 09/29/21 07:41 36.9 C 68 18 127/58 L 09/29/21 03:04 64 09/29/21 03:03 36.7 C 09/29/21 03:00 76 18 117/50 L 09/29/21 02:30 66 18 09/29/21 02:00 70 24 09/29/21 01:34 36.8 C 09/29/21 01:30 75 21 134/66 09/29/21 01:00 76 21 09/29/21 00:30 73 21 09/29/21 00:00 62 17 09/28/21 23:38 77 26 H 09/28/21 23:30 63 20 09/28/21 23:00 36.8 C 72 71 21 88/40 L 09/28/21 22:58 70 26 H 98/40 L 09/28/21 22:30 59 L 18 09/28/21 22:00 65 21 09/28/21 21:30 64 17 09/28/21 21:00 63 20 09/28/21 20:30 64 19 Pulse Ox 09/29/21 07:41 92 09/29/21 03:04 09/29/21 03:03 09/29/21 03:00 96 09/29/21 02:30 09/29/21 02:00 09/29/21 01:34 09/29/21 01:30 09/29/21 01:00 09/29/21 00:30 09/29/21 00:00 09/28/21 23:38 09/28/21 23:30 09/28/21 23:00 97 09/28/21 22:58 09/28/21 22:30 09/28/21 22:00 09/28/21 21:30 09/28/21 21:00 09/28/21 20:30 Laboratory Results Laboratory Tests 09/28/21 09/29/21 05:29 05:44 WBC 6.34 Hgb 9.5 L Hct 29.7 L Plt Count 180 Sodium 134 L Potassium 3.9 Chloride 98 Carbon Dioxide 29 BUN 75 H Creatinine 1.99 H Glucose 114 H PG Care Time/CCT Total # of Minutes Spent Total Time Spent with Patient: Total time spent is greater than 50% in coordination of care (as documented) at patient's floor/unit and/or counseling patient: Coding Level of Care Code 99238 Subseq Hosp Care Lvl 3 Diagnoses CHF (congestive heart failure) I50.9 Heart failure chronicity: acute Heart failure type: unspecified Chronic kidney disease N18.9 Chronic kidney disease stage: unspecified stage Anemia in chronic kidney disease N18.9; D63.1 (1) CHF (congestive heart failure) Heart failure chronicity: acute Heart failure type: unspecified Qualified Code(s): I50.9 - Heart failure, unspecified (2) Chronic kidney disease Chronic kidney disease stage: unspecified stage Qualified Code(s): N18.9 - Chronic kidney disease, unspecified
--- NOTE | 2021-09-29 09:50 | Cardiology Progress Note ---
Date of Service September 29, 2021 Assessment & Plan (1) CHF (congestive heart failure): (2) Elevated troponin: (3) PAD (peripheral artery disease): (4) Chronic kidney disease: Plan: Complex 86-year-old patient with acute on chronic heart failure secondary to mild systolic dysfunction, ischemic heart disease, and grade 3 diastolic dysfunction. Clinical status improved with IV diuresis during hospitalization including additional dose of metolazone. Renal function stable this AM. Appreciate nephrology input. Transition to oral diuretic therapy. No further inpatient cardiovascular testing or intervention at this time. Outpatient follow-up within 1 week with his compounding scaler, Dr. Chavira in [place]. Continue carvedilol, hydralazine, and transdermal nitroglycerin patch. Procardia and losartan discontinued. Blood pressure remains controlled. Multifactorial anemia (chronic disease, iron deficiency) with hemoglobin down to 9.5gm/dl. Patient received IV Venofer during hospitalization. Continue oral iron supplementation at discharge. Admission and Anticipated Discharge Date Admission Date: September 25, 2021 Subjective Patient seen examined the bedside. Feeling better from a cardiovascular perspective. No longer wearing supplemental oxygen. Renal function remained stable. Edema unchanged. Questioning fluid restriction as outpatient. Anxious for discharge. Review of Systems Review of Systems: All systems reviewed & are unremarkable except as noted in Subjective Physical Exam Constitutional: well nourished and + ill appearing Respiratory: no respiratory distress, no labored breathing and no retractions Auscultation: + diminished lung sounds (Bases bilateral, poor effort); no crackles, no rales, no rhonchi and no wheezes Cardiovascular: Rate/Rhythm: regular rate and regular rhythm Heart Sounds: normal S1, normal S2 and + murmur (1-2/6 low pitched mid systolic ejection) Extremities: + edema (1+ B/L pretibial edema) Gastrointestinal (Abdomen): Inspection/Auscultation: abdomen normal to inspection and normal bowel sounds; abdomen not distended Percussion/Palpation: abdomen soft; abdomen nontender, no guarding and abdomen not rigid Neurologic: CN's II-XI intact bilaterally and moves all extremities; no focal motor deficits Motor/Sensory: no tremor Psychiatric: A+Ox3, euthymic affect Results & Data ([facility]) Vital Signs (Past 12 Hours) Vital Signs Temp Pulse Pulse Pulse Resp BP BP 09/29/21 07:41 36.9 C 68 18 127/58 L 09/29/21 03:04 64 09/29/21 03:03 36.7 C 09/29/21 03:00 76 18 117/50 L 09/29/21 02:30 66 18 09/29/21 02:00 70 24 09/29/21 01:34 36.8 C 09/29/21 01:30 75 21 134/66 09/29/21 01:00 76 21 09/29/21 00:30 73 21 09/29/21 00:00 62 17 09/28/21 23:38 77 26 H 09/28/21 23:30 63 20 09/28/21 23:00 36.8 C 72 71 21 88/40 L 09/28/21 22:58 70 26 H 98/40 L 09/28/21 22:30 59 L 18 09/28/21 22:00 65 21 Pulse Ox 09/29/21 07:41 92 09/29/21 03:04 09/29/21 03:03 09/29/21 03:00 96 09/29/21 02:30 09/29/21 02:00 09/29/21 01:34 09/29/21 01:30 09/29/21 01:00 09/29/21 00:30 09/29/21 00:00 09/28/21 23:38 09/28/21 23:30 09/28/21 23:00 97 09/28/21 22:58 09/28/21 22:30 09/28/21 22:00 (1) CHF (congestive heart failure) Heart failure chronicity: acute Heart failure type: unspecified Qualified Code(s): I50.9 - Heart failure, unspecified (2) Chronic kidney disease Chronic kidney disease stage: unspecified stage Qualified Code(s): N18.9 - Chronic kidney disease, unspecified
--- NOTE | 2021-09-29 15:32 | Hospitalist Progress Note ---
Date of Service September 29, 2021 Assessment & Plan (1) CHF (congestive heart failure): Plan: Patient is an 86 yr male with H/O lower extremity edema, [id number] systolic and diastolic congestive heart failure, recent echo showed 45% to 50% EF and grade 3 diastolic dysfunction on diuretics ( Bumex 1 mg p.o. daily and metolazone 5 mg every other day). Recently was hospitalized in [facility] for 2 weeks presents with history of worsening lower extremity edema. Acute systolic/diastolic CHF Bilateral pleural effusion Pulmonary hypertension --CXR:Moderate left and small right pleural effusions. Left retrocardiac opacity may represent layering effusion, atelectasis, pneumonia, and/or aspiration. Cardiomegaly. Nifedipine discontinued as likely contributing to lower extremity edema Low-sodium diet Monitor I's and O's, daily weight Appreciate cardiology, nephrology input Received IV Bumex Continue Bumex 1 mg p.o. daily Consider to be started on spironolactone if blood pressure improve--likely as outpatient Nitroglycerin restarted 2 step: Did not qualify for oxygen Refuses rehab placement, wants to be discharged home Needs follow-up with cardiology, nephrology upon discharge Acute kidney injury on chronic kidney disease stage III: Baseline Cr 1.8 to 2 Cr: 2.65 >2.27>1.99 Monitor renal function Hematuria Likely due to Traumatic Catheter Resolved Appreciate Urology Input Monitor CBC Mild elevation of troponin Most likely demand ischemia in setting of CKD Denies chest Pain CAD S/P CABG Continue Aspirin, Coreg, nitro patch, lovastatin. Anemia of CKD Continue IV iron Also on oral supplement Monitor BPH Continue Flomax Bladder scan as needed HTN Hold losartan due to DILIP Continue current meds Nifedipine discontinued due to leg edema Losartan discontinued as well Hyperlipidemia: On statin PVD on aspirin and statin DVT Px: On Xarelto Code Status Full Code Disposition Refuses SNF Discharge Home Admission and Anticipated Discharge Date Admission Date: September 25, 2021 Subjective Patient is seen and examined at bedside Wants to be discharged home today No new complaints Denies any chest pain, dyspnea, dizziness, nausea, abdominal pain Had 2 step: Did not qualify for oxygen Saturating well on room air Review of Systems Review of Systems: All systems reviewed & are unremarkable except as noted in Subjective Physical Exam Physical Exam: Physical Exam: Vitals signs as noted above General Appearance:Moderately built and nourished, no apparent distress Head: normocephalic, Atraumatic, +Hearing Impairment Eyes: normal inspection, EOMI Neck: supple, Trachea midline Respiratory/Chest: Decreased breath sounds, CTA, No accessory muscle use Cardiovascular: S1, S2, + murmur Abdomen/GI:Soft, Non tender, Bowel sounds present Extremities/Musculoskeletal:normal inspection, B/L LE edema improving Neurologic/Psych:AAOX3, grossly no focal neurological deficits Skin: normal color, warm Results & Data Results & Data ([facility]) Vital Signs (Past 12 Hours) Vital Signs Temp Pulse Resp BP Pulse Ox 09/29/21 12:12 37.0 C 65 18 123/53 L 93 09/29/21 07:41 36.9 C 68 18 127/58 L 92 Laboratory Results [facility] 09/29/21 05:44 Sodium 134 L Potassium 3.9 Chloride 98 Carbon Dioxide 29 BUN 75 H Creatinine 1.99 H Glucose 114 H Calcium 8.7 (1) CHF (congestive heart failure) Heart failure chronicity: acute Heart failure type: unspecified Qualified Code(s): I50.9 - Heart failure, unspecified
--- NOTE | 2021-09-29 15:45 | Discharge Summary ---
Date of Service September 29, 2021 Admission HPI Per Admitting Provider CHIEF COMPLAINT: Lower extremity edema. HISTORY OF PRESENT ILLNESS: An 86-year-old male with past medical history significant for chronic systolic and diastolic CHF, chronic kidney disease stage III, baseline creatinine of 1.8 to 2, BPH, history of kidney stones, history of carotid stenosis, status post bilateral endarterectomies, history of CAD, status post CABG performed at [facility] in 1995, hypertension, hyperlipidemia, peripheral vascular disease, history of impaired fasting glucose, anemia,conduction disorder of heart, pernicious anemia, gastritis, osteoarthritis, presents with lower extremity edema. The patient was in [facility] for 2 weeks for lower extremity edema, discharged a couple of days ago, lives alone at home. Niece and nephew take care of him. He says he takes his medications as his niece and nephew place them in order. He says he thinks he is taking them as he is supposed to take. Denies any over salt intake. Comes here because the lower extremity edema again got worse. Denies any shortness of breath, no chest pain, no nausea, no vomiting, no headache, no blurred visions, no earache, no runny nose, no sore throat. Appetite is okay with no difficulty swallowing. No nausea, no abdominal pain. Normal bowel and bladder movements. His stools are always black because he takes iron tablets. He has a cane and walker at home, but he ambulates without any support. Currently resting comfortably and hemodynamically stable, saturating okay on room air. Admission Exam Per Admitting Provider PHYSICAL EXAMINATION: GENERAL: The patient is of moderate build, not in acute distress. VITAL SIGNS: Temperature 37, pulse 65, respiratory rate 23, blood pressure 101/51, oxygen 94% on room air. HEENT: Pupils equal, round and reactive to light. Oral mucosa moist. LUNGS: No JVD or neck masses. CARDIOVASCULAR: S1 and S2 heard. Regular rate and rhythm. No murmur, no gallop. RESPIRATORY SYSTEM: Normal AP diameter. No accessory muscle use. No wheezing, no crackles. ABDOMEN: Soft. Bowel sounds are present, nontender, no distention. CENTRAL NERVOUS SYSTEM: Cranial nerves II-XII grossly intact, nonfocal. EXTREMITIES: Lower extremity gross pedal edema present, no erythema seen. Principal Diagnosis Acute systolic/diastolic congestive heart failure Bilateral pleural effusion secondary to above Pulmonary hypertension Acute kidney injury Discharge Data Allergies Allergy/AdvReac Type Severity Reaction Status Date / Time clonidine Allergy Unknown Verified 09/25/21 02:33 doxazosin [From Cardura] Allergy HIVES and Verified 09/25/21 02:33 ITCHING furosemide [From Lasix] Allergy HIVES and Verified 09/25/21 02:33 ITCHING hydrochlorothiazide Allergy ITCHING Verified 09/25/21 02:33 ketorolac [From Toradol] Allergy ACUTE Verified 09/25/21 02:33 KIDNEY INJURY potassium chloride Allergy HIVES and Verified 09/25/21 02:33 ITCHING lisinopril AdvReac COUGH Verified 09/25/21 02:33 Consultations 09/25/21 03:35 ED Decision to Admit Stat 09/25/21 07:59 Consult Nephrology Routine 09/25/21 08:00 Consult Cardiology Routine 09/27/21 08:00 Consult Urology Routine Hospital Course (1) CHF (congestive heart failure): Patient is an 86 yr male with H/O lower extremity edema, [id number] systolic and diastolic congestive heart failure, recent echo showed 45% to 50% EF and grade 3 diastolic dysfunction on diuretics ( Bumex 1 mg p.o. daily and metolazone 5 mg every other day). Recently was hospitalized in [facility] for 2 weeks presents with history of worsening lower extremity edema. Acute systolic/diastolic CHF Bilateral pleural effusion Pulmonary hypertension --CXR:Moderate left and small right pleural effusions. Left retrocardiac opacity may represent layering effusion, atelectasis, pneumonia, and/or aspiration. Cardiomegaly. Nifedipine discontinued as likely contributing to lower extremity edema Low-sodium diet Monitor I's and O's, daily weight Appreciate cardiology, nephrology input Received IV Bumex Continue Bumex 1 mg p.o. daily Consider to be started on spironolactone if blood pressure improve--likely as outpatient Nitroglycerin restarted 2 step: Did not qualify for oxygen Refuses rehab placement, wants to be discharged home Needs follow-up with cardiology, nephrology upon discharge Acute kidney injury on chronic kidney disease stage III: Baseline Cr 1.8 to 2 Cr: 2.65 >2.27>1.99 Monitor renal function Hematuria Likely due to Traumatic Catheter Resolved Appreciate Urology Input Monitor CBC Mild elevation of troponin Most likely demand ischemia in setting of CKD Denies chest Pain CAD S/P CABG Continue Aspirin, Coreg, nitro patch, lovastatin. Anemia of CKD Continue IV iron Also on oral supplement Monitor BPH Continue Flomax Bladder scan as needed HTN Hold losartan due to DILIP Continue current meds Nifedipine discontinued due to leg edema Losartan discontinued as well Hyperlipidemia: On statin PVD on aspirin and statin DVT Px: On Xarelto Code Status Full Code Disposition Refuses SNF Discharge Home Total Time Total Time Spent Total Time Spent (In Minutes): 50 minutes Discharge Plan Discharge Items Patient Disposition: Home - Home Health Services Reason For Visit: SWELLING LOWER EXT EDEMA Discharge Diagnosis: Acute systolic/diastolic congestive heart failure Bilateral pleural effusion secondary to above Pulmonary hypertension Acute kidney injury Activity: Per Instructions section Exercise/Sports: Gradually increase as tolerated Non-emergency contact: Primary Care Provider, Supervisor Net Making and Vehicle Assembly Inspector Call non-emergency contact if: you have any medication questions, your symptoms worsen, your pain is concerning for you and you have a fever Follow-up/Referrals: PCP,NO [Primary Care Provider] - Dietitian Info: Minced and moist Diet: Heart Healthy and Low Sodium (2gm) Addtl Attending Provider Instructions: Follow-up with your primary care physician in 1 week. Please call for appointment Follow-up with your heel boom operator Dr. Chavira in [place] in 1-2 weeks Follow-up with your die barber in 1-2 weeks. Please call [phone] for appointment Seek immediate medical attention if your symptoms reoccur or worsen Please take all medications as instructed on discharge list below. Please call if you have any questions or problems. You can reach a [facility] hospitalist on duty at [facility] 24 hours a day by calling [phone] MEDICATION CHANGES: 1) -- Your losartan and nifedipine were discontinued 2) --Your hydralazine dose is decreased to 25 mg daily Call your Primary Care doctor if any of the following symptoms or problems start or get worse: * Shortness of breath or difficulty breathing * Wake up at night short of breath * Chest pain * Cough * Swelling of your hands, feet, or legs * More fatigued or tired with your normal activity * Palpitations - sudden fast heart beats WEIGHT * Weigh yourself every morning after using the bathroom. * Use the same scale. * Wear the same amount of clothing. * Write your weight down on a chart. * Call your Primary Care doctor if you gain more than 2-3 pounds in 1-2 days. MEDICATIONS * Use this discharge instruction sheet for medication instructions. * Take your medications at the time your doctor ordered. * Do not skip a dose of your medicines. * If you miss a dose of medicine, take it as soon as possible, but DO NOT DOUBLE A DOSE. * Read your medicine information when you get home. * Know all of the side effects of your medicine. If in doubt, ask your pharmacist * Call your Primary Care doctor's office if you have any side effects. * Be sure all of your doctors know what medicine and herbs you take (including cold, flu, and herbal medicine). Take the following with you to your follow-up doctor appointments: * Weight Chart * Medication List * List of questions Do not drink excessive alcohol, beer or wine. Pending Studies at Discharge: No Stand-Alone Forms: My [facility] [employer], Smoking Cessation Medications and DC Order Prescriptions: New hydralazine 25 mg Tablet 25 mg PO TID Qty: 90 RF: 1 Continued rosuvastatin 5 mg tablet 5 mg PO DAILY Qty: 30 RF: 2 ezetimibe 10 mg tablet 10 mg PO DAILY Qty: 30 RF: 2 Xarelto 2.5 mg tablet 2.5 mg PO BID Qty: 60 RF: 2 triamcinolone acetonide 0.1 % cream 1 applic topical TID PRN (Reason: itching) Qty: 15 RF: 0 aspirin 81 mg tablet,delayed release (DR/EC) 81 mg PO DAILY Qty: 30 RF: 2 omega-3 fatty acids [Fish Oil Concentrate] 1,000 mg capsule 2,000 mg PO BID Qty: 60 RF: 0 ascorbic acid (vitamin C) 1,000 mg tablet 1 g PO DAILY Qty: 120 RF: 0 nitroglycerin [Nitrostat] 0.4 mg tablet, sublingual 0.4 mg sublingual Q5M PRN (Reason: chest pain) Qty: 1 RF: 0 magnesium oxide 400 mg magnesium capsule 400 mg PO DAILY Qty: 30 RF: 0 carvedilol 12.5 mg tablet 12.5 mg PO BID Qty: 60 RF: 2 vitamin E02-usysx acid 500-400 mcg tablet 1 tab PO DAILY Qty: 30 RF: 0 tamsulosin 0.4 mg capsule 0.8 mg PO DAILY Qty: 30 RF: 2 dutasteride 0.5 mg capsule 0.5 mg PO DAILY Qty: 30 RF: 2 menthol-zinc oxide [Calmoseptine] 0.44-20.6 % ointment 1 applic topical TID PRN (Reason: skin irritation) Qty: 113 RF: 1 zinc 50 mg tablet 50 mg PO DAILY RF: 0 docusate sodium [Colace] 100 mg capsule 100 mg PO BID RF: 0 nitroglycerin [Nitro-Dur] 0.4 mg/hr patch 24 hour 1 patch transdermal QAM MDD remove in pm RF: 0 folic acid 400 mcg Tablet 400 mcg PO QAM Qty: 30 RF: 0 cholecalciferol (vitamin D3) [Vitamin D3] 50 mcg (2,000 unit) Tablet 50 mcg PO DAILY RF: 0 ferrous sulfate 134 mg (27 mg iron) Tablet 134 mg PO BID RF: 0 metolazone 5 mg tablet 5 mg PO Q OTHER DAY RF: 0 potassium chloride 20 mEq tablet,ER particles/crystals 40 meq PO DAILY RF: 0 bumetanide 1 mg tablet 1 mg PO DAILY Qty: 30 RF: 2 Discontinued losartan 50 mg tablet 50 mg PO BID Qty: 60 RF: 2 Hold Instructions: Home Medication placed on hold at Doctor's office nifedipine [Procardia XL] 60 mg tablet extended release 24hr 120 mg PO DAILY Qty: 30 RF: 2 hydralazine 50 mg Tablet 50 mg PO TID Qty: 90 RF: 1 Discharge Orders: Discharge Order (Routine); Ordered 09/29/21 Ordered By: Eddie Rojas Admission Data Admit Date/Time: 09/25/21 05:03 Attending Provider: Eddie Rojas Admit Provider: Shubham Motta Primary Care Provider: PCP,NO Other Providers: Shubham Motta ; Judah Del Toro ; Francisco Javier Mendoza ; Ventura Tatum ; Gerard Li ; Deven Yu ; Patricia Hale ; Francisco Javier Cottrell ; Carina Casper ; Bailey Coyne ; Ashtyn Stevenson ; Rajesh Mattson ; Panchito Rivas ; Latonya Samuel ; Francoise Stevenson ; [place] ; [facility]
[2021-09-30] MEDS ORDERED: FINASTERIDE 5 MG TAB PO SCH (09:00)
== END 2021-09-29 18:00 | disposition home health service (06) | DRG 291 ==
LOC: ED 01:34 → SUATTDRO 05:03 → EDINP 05:03 → 1E 05:45

== ENCOUNTER 2021-11-28 14:34 | Inpatient (IN) ==
--- NOTE | 2021-11-28 15:04 | XRay Report ---
SINGLE VIEW CHEST CLINICAL HISTORY: Atypical chest pain. FINDINGS: An AP, portable, upright chest radiograph is compared to study dated 11/06/2021. Correlation is made with chest CT dated 08/28/2021. The examination is degraded by portable technique and apical l ordotic positioning. The patient is status post midline sternotomy. The heart is enlarged noting athe rosclerotic calcification of the thoracic ureter. There is pulmonary vascular congestion with mild in terstitial edema. There are small pleural effusions with bibasilar consolidation. No pneumothorax is seen. The skeletal structures are osteopenic. The bony thorax is grossly intact. Calcific tendinopath y is noted in the left shoulder. IMPRESSION: 1. Cardiomegaly with evidence of congestive failure and pulmonary edema. 2. Small pleural effusions with bibasilar consolidation. ACT 112: Negative or not required by law. Electronically signed by: Paco Pardo M.D. 11/28/2021 3:02 PM
--- NOTE | 2021-11-28 15:06 | Emergency Department Note ---
Impression & Plan Pulmonary edema, Cellulitis of leg, right ED Provider Note NAME: JUDITH JEFFERY AGE: 86 SEX: M : 1935 ARRIVES VIA: Walk-In INFORMANT: Patient, ED PROVIDER(S): Db Ponce DO CHIEF COMPLAINT: Shortness of breath HPI: The patient is an 86-year-old male who presented to the emergency department with his nephew for an evaluation of shortness of breath. The patient started having symptoms at 3:00 in the morning. The patient has a history of pulmonary edema. He states that the symptoms feel similar to when he has had pulmonary edema in the past. He denies having any productive cough but does have a dry cough. He denies having any chest pain at this time but states he did have chest pain last evening. He states has been compliant with his outpatient medications. He was seen in our facility recently for similar complaints. The patient's symptoms were moderate to severe prior to arrival. He states he has been trying to rest and has been sitting upright in a chair. He has not been seen by his family doctor today. He denies having any black or bloody bowel movements. ROS: See above HPI for pertinent positives & negatives. A total of 10 systems reviewed and were otherwise negative. PAST MEDICAL HISTORY: See Below PAST SURGICAL HISTORY: See Below FAMILY HISTORY: See Below SOCIAL HISTORY: See Below HOME MEDICATIONS: See Below ALLERGIES: See Below VITALS: See Below PHYSICAL EXAMINATION: GENERAL: The patient is awake and alert. He is somewhat anxious appearing. EYES: The conjunctivae are clear. The pupils are round and reactive. EARS, NOSE, MOUTH AND THROAT: The nose is without any evidence of any deformity. NECK: The neck is nontender and supple. RESPIRATORY: Shallow respirations were noted. Diminished breath sounds noted throughout. There were rales in both lung howell. CARDIOVASCULAR: Ectopy was noted auscultation. There was no definite murmur. GASTROINTESTINAL: The abdomen is soft. Abdomen is nontender. MUSCULOSKELETAL/EXTREMITIES: There is no evidence of gross deformity full range of motion is noted in the hips and shoulders. SKIN: Skin is cool and dry. Pedal edema was noted bilaterally. There is erythema of the left lower extremity. There appears to be signs of cellulitis. NEUROLOGIC: Patient is awake alert and oriented x3 MEDICAL DECISION MAKING: The patient is an 86-year-old male who presented to the emergency department for an evaluation of shortness of breath. The patient was experiencing chest pain as well as shortness of breath. The patient presented to the emergency department with family member. He was having severe shortness of breath. The patient was also found to have right lower extremity swelling and redness. There is no signs of DVT in the right lower extremity. The patient was treated with IV antibiotics. He was also given IV Bumex. He was reevaluated multiple times. On subsequent reevaluation he was significantly improved. I discussed his condition with the on-call [facility]. They have agreed to evaluate the patient in the emergency department for further management and disposition. Triage Nursing notes reviewed. Prior medical records reviewed Vital Signs: reviewed and remarkable for elevated blood pressure. Differential diagnosis: Reactive airway disease, pneumonia, pneumothorax, COPD, CHF, infections, cardiac ischemia, pulmonary embolism, musculoskeletal, gastrointestinal, as well as other pathologies. ER treatment provided: See below Diagnostics interpreted by me: ECG: EKG was obtained in the emergency department. My interpretation is sinus rhythm at 70 bpm. PACs were noted. ST segment depressions were noted in the lateral leads. This was compared to a tracing from November 06, 2021. No significant changes were noted. Cardiac Monitoring: An order was placed for continuous cardiac monitoring. The monitor shows a rate of 77 bpm with sinus rhythm. Laboratory studies: As stated above and show below. Imaging studies: See below Consultation(s): I discussed this case with Kenna who is on-call for the [facility] group. Past Med/Surg History Medical History Carotid stenosis Diastolic CHF, chronic Hearing loss Hematuria Hyperlipidemia Nephrolithiasis Osteoarthritis PAD (peripheral artery disease) Surgical History H/O endarterectomy H/O lithotripsy Hx of CABG S/P colonoscopic polypectomy S/P total knee arthroplasty left Family History Denies family history of Diabetes Kidney disease Social History Smoking Status: Never smoker Hx Alcohol Use: Yes (15 years ago) Hx Substance Use: No Preferred Language: [place] African Communication Ability: Effective Hearing Ability: Hard of Hearing Viner Operator Required: No Beliefs That Will Affect Care: None Current Living Situation: Alone current occupational status: retired Feels Safe at Home: Yes Assistive Devices: Cane, Hospital Bed and Walker Allergies Allergies Allergy/AdvReac Type Severity Reaction Status Date / Time doxazosin [From Cardura] Allergy Intermediate HIVES and Verified 11/28/21 17:56 ITCHING furosemide [From Lasix] Allergy Intermediate HIVES and Verified 11/28/21 17:56 ITCHING hydrochlorothiazide Allergy Intermediate ITCHING Verified 11/28/21 17:56 potassium chloride Allergy Intermediate HIVES and Verified 11/28/21 17:56 ITCHING clonidine Allergy Unknown Unknown Verified 11/28/21 17:56 ketorolac [From Toradol] AdvReac Severe ACUTE Verified 11/28/21 17:56 KIDNEY INJURY lisinopril AdvReac Intermediate COUGH Verified 11/28/21 17:56 Home Meds Home Medications Medication Instructions Recorded Confirmed docusate sodium 100 mg capsule 100 mg PO BID 12/06/20 11/28/21 (Colace) zinc 50 mg tablet 50 mg PO DAILY 12/06/20 11/28/21 nitroglycerin 0.4 mg/hr 1 patch transdermal QAM 08/27/21 11/28/21 transdermal 24 hour patch (Nitro-Dur) cholecalciferol (vitamin D3) 50 50 mcg PO DAILY 09/25/21 11/28/21 mcg (2,000 unit) tablet (Vitamin D3) ferrous sulfate 134 mg (27 mg 134 mg PO BID 09/25/21 11/28/21 iron) tablet metolazone 5 mg tablet 5 mg PO Q OTHER DAY 09/25/21 11/28/21 potassium chloride 20 mEq 40 meq PO DAILY 09/25/21 11/28/21 tablet,extended release(part/cryst) omega-3 fatty acids 1,000 mg 2,000 mg PO BID 11/28/21 11/28/21 capsule Previous Rx's Medication Instructions Recorded ascorbic acid (vitamin C) 1,000 mg 1 g PO DAILY #120 tabs 11/24/20 tablet aspirin 81 mg tablet,delayed 81 mg PO DAILY #30 tabs 11/24/20 release carvedilol 12.5 mg tablet 12.5 mg PO BID #60 tabs 11/24/20 dutasteride 0.5 mg capsule 0.5 mg PO DAILY #30 caps 11/24/20 ezetimibe 10 mg tablet 10 mg PO DAILY #30 tabs 11/24/20 magnesium oxide 400 mg PO DAILY #30 caps 11/24/20 nitroglycerin 0.4 mg sublingual 0.4 mg sublingual Q5M PRN chest 11/24/20 tablet (Nitrostat) pain #1 tab rivaroxaban 2.5 mg tablet (Xarelto) 2.5 mg PO BID #60 tabs 11/24/20 rosuvastatin 5 mg tablet 5 mg PO DAILY #30 tabs 11/24/20 tamsulosin 0.4 mg capsule 0.8 mg PO DAILY #30 caps 11/24/20 triamcinolone acetonide 0.1 % 1 applic topical TID PRN itching 11/24/20 topical cream #15 grams vitamin B12 500 mcg-folic acid 400 1 tab PO DAILY #30 tabs 11/24/20 mcg tablet folic acid 400 mcg tablet 400 mcg PO QAM #30 tabs 08/31/21 menthol 0.44 %-zinc oxide 20.6 % 1 applic topical TID PRN skin 09/05/21 topical ointment (Calmoseptine) irritation #113 grams bumetanide 1 mg tablet 1 mg PO DAILY #30 tabs 09/29/21 darbepoetin lizzy in polysorbat 60 60 mcg subcut .COMPLEX #1 mL 10/03/21 mcg/mL in polysorbate injection (Aranesp) hydralazine 25 mg tablet 25 mg PO BID #90 tabs 10/17/21 Results & Data (ED) Vital Signs Vital Signs - 24 hr 11/28/21 14:35 11/28/21 14:40 11/28/21 15:33 Temperature 36.7 C Temperature Source Temporal Artery Scan Pulse Rate 82 Pulse Rate [Apical] 74 Respiratory Rate 14 24 Respiratory Effort / Characteristics Non-Labored Spontaneous Respiratory Depth Normal Respiratory Pattern Regular Tachypnea Blood Pressure 78/50 L Blood Pressure [Left Arm] 125/59 L 127/62 Blood Pressure Mean 59 Blood Pressure Mean [Left Arm] 81 83 Blood Pressure Position Sitting Blood Pressure Position [Left Arm] Sitting Lying Pulse Oximetry 95 95 Oxygen Delivery Method Room Air Room Air Oxygen Flow Rate Sepsis Recent Fever Within 48 Hours No Sepsis New/Unexplained Change in Mental Status No Sepsis Action Taken by Nursing No Action Required 11/28/21 17:27 11/28/21 18:22 11/28/21 19:41 Temperature Temperature Source Pulse Rate Pulse Rate [Apical] 79 83 77 Respiratory Rate 26 H 24 20 Respiratory Effort / Characteristics Spontaneous Short of Breath Respiratory Depth Normal Normal Respiratory Pattern Tachypnea Tachypnea Blood Pressure Blood Pressure [Left Arm] 129/72 129/64 145/88 H Blood Pressure Mean Blood Pressure Mean [Left Arm] 91 85 107 Blood Pressure Position Blood Pressure Position [Left Arm] Sitting Lying Pulse Oximetry 100 99 100 Oxygen Delivery Method Nasal Cannula Nasal Cannula Nasal Cannula Oxygen Flow Rate 2 2 2 Sepsis Recent Fever Within 48 Hours Sepsis New/Unexplained Change in Mental Status Sepsis Action Taken by Group Home Medications Current Medication List: was personally reviewed by me Laboratory Data Attestation: I reviewed the patient's lab results. Result diagrams: 11/28/21 15:11 11/28/21 15:11 Lab Results 11/28/21 11/28/21 11/28/21 Range/Units 15:11 15:11 15:11 WBC 14.56 H (4.8-10.8) K/ul RBC 3.45 L (4.63-6.08) M/uL Hgb 9.7 L (14.0-18.0) g/dl Hct 30.6 L (40.1-51.0) % MCV 88.7 (80.0-100.0) fL MCH 28.1 (25.0-34.0) pg MCHC 31.7 L (32.0-36.0) g/dL RDW Std Deviation 53.7 H (36.4-46.3) fL RDW Coeff of Dmitriy 16.6 H (11.5-14.5) % Plt Count 187 (130-400) K/uL MPV 11.5 (9.4-12.4) fL Immature Gran % (Auto) 0.5 % Neut % (Auto) 89.9 % Lymph % (Auto) 2.3 % Cache % (Auto) 7.1 % Eos % (Auto) 0.1 % Baso % (Auto) 0.1 % Neut # (Auto) 13.07 H (1.4-6.5) K/uL Lymph # (Auto) 0.34 L (1.2-3.4) K/uL Cache # (Auto) 1.04 H (0.24-0.82) K/uL Eos # (Auto) 0.02 (0-0.50) K/uL Baso # (Auto) 0.02 (0-0.2) K/uL Immature Gran # (Auto) 0.07 H (0.00-0.02) K/uL PT 13.0 H (9.0-12.0) Seconds INR 1.2 H (0.9-1.1) APTT 29.7 (21.0-31.0) Seconds PTT Ratio 1.1 Sodium 135 L (136-145) mmol/L Potassium 3.4 L (3.5-5.1) mmol/L Chloride 96 L (98-107) mmol/L Carbon Dioxide 29 (21-32) mmol/L Anion Gap 10 (3-11) BUN 51 H (6-23) mg/dl Creatinine 1.78 H (0.6-1.4) mg/dl Est Cr Clr Drug Dosing 29.9 ml/min Est GFR ( Amer) 39.4 ml/min Est GFR (Non-Af Amer) 34.0 ml/min BUN/Creatinine Ratio 28.7 H (10-20) Glucose 129 H (70-99(Fasting)) mg/dl Calcium 8.7 (8.5-10.1) mg/dl Total Bilirubin 0.7 (0.2-1.0) mg/dl AST 18 (13-39) U/L ALT 33 (7-52) U/L Alkaline Phosphatase 90 (34-104) U/L Troponin I High Sens 41.1 H D (0-20) pg/ml B-Natriuretic Peptide (0-100) pg/ml Total Protein 6.1 (6.0-8.3) gm/dl Albumin 3.6 (3.4-5.0) gm/dl Globulin 2.5 (2.5-4.0) gm/dl Albumin/Globulin Ratio 1.4 (0.9-2) Lipase 25 (11-82) U/L SARS-CoV-2 (PCR) (Negative) Influenza Type A (PCR) (Neg) Influenza Type B (PCR) (Neg) RSV (RT-PCR) (Neg) 08/02/22 08/02/22 Range/Units 15:11 15:11 WBC (4.8-10.8) K/ul RBC (4.63-6.08) M/uL Hgb (14.0-18.0) g/dl Hct (40.1-51.0) % MCV (80.0-100.0) fL MCH (25.0-34.0) pg MCHC (32.0-36.0) g/dL RDW Std Deviation (36.4-46.3) fL RDW Coeff of Dmitriy (11.5-14.5) % Plt Count (130-400) K/uL MPV (9.4-12.4) fL Immature Gran % (Auto) % Neut % (Auto) % Lymph % (Auto) % Cache % (Auto) % Eos % (Auto) % Baso % (Auto) % Neut # (Auto) (1.4-6.5) K/uL Lymph # (Auto) (1.2-3.4) K/uL Cache # (Auto) (0.24-0.82) K/uL Eos # (Auto) (0-0.50) K/uL Baso # (Auto) (0-0.2) K/uL Immature Gran # (Auto) (0.00-0.02) K/uL PT (9.0-12.0) Seconds INR (0.9-1.1) APTT (21.0-31.0) Seconds PTT Ratio Sodium (136-145) mmol/L Potassium (3.5-5.1) mmol/L Chloride (98-107) mmol/L Carbon Dioxide (21-32) mmol/L Anion Gap (3-11) BUN (6-23) mg/dl Creatinine (0.6-1.4) mg/dl Est Cr Clr Drug Dosing ml/min Est GFR ( Amer) ml/min Est GFR (Non-Af Amer) ml/min BUN/Creatinine Ratio (10-20) Glucose (70-99(Fasting)) mg/dl Calcium (8.5-10.1) mg/dl Total Bilirubin (0.2-1.0) mg/dl AST (13-39) U/L ALT (7-52) U/L Alkaline Phosphatase (34-104) U/L Troponin I High Sens (0-20) pg/ml B-Natriuretic Peptide 2520 H (0-100) pg/ml Total Protein (6.0-8.3) gm/dl Albumin (3.4-5.0) gm/dl Globulin (2.5-4.0) gm/dl Albumin/Globulin Ratio (0.9-2) Lipase (11-82) U/L SARS-CoV-2 (PCR) NEGATIVE (Negative) Influenza Type A (PCR) Negative (Neg) Influenza Type B (PCR) Negative (Neg) RSV (RT-PCR) Negative (Neg) Administered Medications Discontinued Medications Bumetanide 1 mg/ Syringe 4 mls @ 4 mls/min IV ONE ONE Stop: 11/28/21 16:23 Last Admin: 11/28/21 17:24 Dose: 4 mls/min Documented By: JUAN Ceftriaxone Sodium (Rocephin) 2,000 mg in 70 mls @ 140 mls/hr IV NOW STA Stop: 11/28/21 17:49 Last Infusion: 11/28/21 17:56 Dose: 0 mls/hr Documented By: Admin: 11/28/21 17:26 Dose: 140 mls/hr Documented By: JUAN Imaging Data Radiologist's Impression: Chest X-Ray 11/28/21 14:49 SINGLE VIEW CHEST CLINICAL HISTORY: Atypical chest pain. FINDINGS: An AP, portable, upright chest radiograph is compared to study dated 11/06/2021. Correlation is made with chest CT dated 08/28/2021. The examination is degraded by portable technique and apical lordotic positioning. The patient is status post midline sternotomy. The heart is enlarged noting atherosclerotic calcification of the thoracic ureter. There is pulmonary vascular congestion with mild interstitial edema. There are small pleural effusions with bibasilar consolidation. No pneumothorax is seen. The skeletal structures are osteopenic. The bony thorax is grossly intact. Calcific tendinopathy is noted in the left shoulder. IMPRESSION: 1. Cardiomegaly with evidence of congestive failure and pulmonary edema. 2. Small pleural effusions with bibasilar consolidation. ACT 112: Negative or not required by law. Electronically signed by: Paco Pardo M.D. 11/28/2021 3:02 PM Venous Doppler Study 11/28/21 14:51 ULTRASOUND LEFT LOWER EXTREMITY VENOUS CLINICAL HISTORY: Left lower extremity edema. COMPARISON STUDY: No priors. TECHNIQUE: Real-time, grayscale, and color Doppler sonography of the deep veins of the left lower extremity was performed from the inguinal crease to the calf. Compression and augmentation were utilized. FINDINGS: There is no sonographic evidence of deep venous thrombosis identified in the left lower extremity. The common femoral, superficial femoral, and popliteal veins are patent and normally compressible. The greater saphenous vein and the profunda femoris vein at the junction with the common femoral vein are clear. The visualized calf veins are patent. Soft tissue edema is noted in the left leg. IMPRESSION: There is no sonographic evidence of deep venous thrombosis identified in the left lower extremity. ACT 112: Negative or not required by law. Electronically signed by: Paco Pardo M.D. 11/28/2021 5:16 PM Discharge Plan Visit Data Chief Complaint: Chest Pain Stated Complaint: CHEST PAIN, SOB ED Provider: Db Ponce Discharge Problem: Pulmonary edema, Cellulitis of leg, right Patient Disposition: Being Evaluated by Hospitalist Forms Stand Alone Forms: [facility] Prescriptions Prescriptions: No Action rosuvastatin 5 mg tablet 5 mg PO DAILY Qty: 30 2RF ezetimibe 10 mg tablet 10 mg PO DAILY Qty: 30 2RF Xarelto 2.5 mg tablet 2.5 mg PO BID Qty: 60 2RF triamcinolone acetonide 0.1 % cream 1 applic topical TID PRN (Reason: itching) Qty: 15 0RF aspirin 81 mg tablet,delayed release (DR/EC) 81 mg PO DAILY Qty: 30 2RF ascorbic acid (vitamin C) 1,000 mg tablet 1 g PO DAILY Qty: 120 0RF nitroglycerin [Nitrostat] 0.4 mg tablet, sublingual 0.4 mg sublingual Q5M PRN (Reason: chest pain) Qty: 1 0RF Rx Instructions: do not exceed 3 doses per episode magnesium oxide 400 mg magnesium capsule 400 mg PO DAILY Qty: 30 0RF carvedilol 12.5 mg tablet 12.5 mg PO BID Qty: 60 2RF Rx Instructions: must administer with a meal/food vitamin O95-rwobc acid 500-400 mcg tablet 1 tab PO DAILY Qty: 30 0RF Rx Instructions: administer with a meal tamsulosin 0.4 mg capsule 0.8 mg PO DAILY Qty: 30 2RF dutasteride 0.5 mg capsule 0.5 mg PO DAILY Qty: 30 2RF menthol-zinc oxide [Calmoseptine] 0.44-20.6 % ointment 1 applic topical TID PRN (Reason: skin irritation) Qty: 113 1RF zinc 50 mg tablet 50 mg PO DAILY docusate sodium [Colace] 100 mg capsule 100 mg PO BID Aranesp (in polysorbate) 60 mcg/mL solution 60 mcg subcut .COMPLEX Qty: 1 3RF Rx Instructions: 60 mcg subcut every 2 weeks; hold for Hgb >11 hydralazine 25 mg tablet 25 mg PO BID Qty: 90 1RF nitroglycerin [Nitro-Dur] 0.4 mg/hr patch 24 hour 1 patch transdermal QAM MDD remove in pm Rx Instructions: allow nitrate-free interval of approx. 10-12 hrs per 24-hour period folic acid 400 mcg Tablet 400 mcg PO QAM Qty: 30 0RF cholecalciferol (vitamin D3) [Vitamin D3] 50 mcg (2,000 unit) Tablet 50 mcg PO DAILY ferrous sulfate 134 mg (27 mg iron) Tablet 134 mg PO BID metolazone 5 mg tablet 5 mg PO Q OTHER DAY potassium chloride 20 mEq tablet,ER particles/crystals 40 meq PO DAILY bumetanide 1 mg tablet 1 mg PO DAILY Qty: 30 2RF omega-3 fatty acids 1,000 mg Capsule 2,000 mg PO BID Referrals Referrals: Panchito Anguiano, BHARAT [Primary Care Provider] -
[2021-11-28 15:35] LABS: Basophils # (auto) 0.02 K/uL (0-0.2); Basophils % (auto) 0.1 %; Eosinophils # (auto) 0.02 K/uL (0-0.50); Eosinophils % (auto) 0.1 %; Hematocrit (blood only) 30.6 % (40.1-51.0); Hemoglobin 9.7 g/dl (14.0-18.0); Immature Granulocytes # (auto) 0.07 K/uL (0.00-0.02); Immature Granulocytes % (auto) 0.5 %; Lymphocytes # (auto) 0.34 K/uL (1.2-3.4); Lymphocytes % (auto) 2.3 %; Mean Corpuscular Hemoglobin 28.1 pg (25.0-34.0); Mean Corpuscular Hgb Conc 31.7 g/dL (32.0-36.0); Mean Corpuscular Volume 88.7 fL (80.0-100.0); Mean Platelet Volume 11.5 fL (9.4-12.4); Monocytes # (auto) 1.04 K/uL (0.24-0.82); Monocytes % (auto) 7.1 %; Neutrophils # (auto) 13.07 K/uL (1.4-6.5); Neutrophils % (auto) 89.9 %; Platelet Count 187 K/uL (130-400); RDW Coefficient of Variation 16.6 % (11.5-14.5); RDW Standard Deviation 53.7 fL (36.4-46.3); Red Blood Count 3.45 M/uL (4.63-6.08); White Blood Count 14.56 K/ul (4.8-10.8)
[2021-11-28 15:47] LABS: INR 1.2 (0.9-1.1); Partial Thromboplastin Ratio 1.1; Partial Thromboplastin Time 29.7 Seconds (21.0-31.0)
--- NOTE | 2021-11-28 15:50 | Electrocardiogram Report ---
Test Reason : Blood Pressure : / mmHG Vent. Rate : 078 BPM Atrial Rate : 078 BPM P-R Int : 180 ms QRS Dur : 100 ms QT Int : 450 ms P-R-T Axes : 047 013 109 degrees QTc Int : 513 ms Poor data quality, interpretation may be adversely affected Sinus rhythm with Premature atrial complexes Possible Left atrial enlargement possible Anterior infarct , age undetermined Prolonged QT Abnormal ECG When compared with ECG of 06-NOV-2021 16:53, Premature atrial complexes are now Present T wave inversion more evident in Lateral leads Confirmed by Deven Camargo ([id number]) on 11/28/2021 3:49:38 PM Referred By: REFERRED SELF Confirmed By:Swapnil Camargo
[2021-11-28 15:55] LABS: Albumin Globulin Ratio 1.4 (0.9-2); Albumin Level 3.6 gm/dl (3.4-5.0); BUN Creatinine Ratio 28.7 (10-20); Bilirubin,Total 0.7 mg/dl (0.2-1.0); Calcium 8.7 mg/dl (8.5-10.1); Creatinine Clr Calc Pharmacy 29.9 ml/min; Est GFR (African American) 39.4 ml/min; Globulin 2.5 gm/dl (2.5-4.0); Potassium 3.4 mmol/L (3.5-5.1); Total Protein 6.1 gm/dl (6.0-8.3)
[2021-11-28 15:59] LABS: Troponin I High Sensitivity 41.1 pg/ml (0-20)
[2021-11-28 16:15] LABS: Influenza A virus by PCR Negative (Neg); Influenza B virus by PCR Negative (Neg); RSV by PCR Negative (Neg); SARS CoV2 RNA(COVID-19) InHosp NEGATIVE (Negative)
[2021-11-28] MEDS ORDERED: BUMETANIDE 1 MG in SYRINGE 0 ML IV ONE (16:22)
--- NOTE | 2021-11-28 17:17 | Ultrasound Report ---
ULTRASOUND LEFT LOWER EXTREMITY VENOUS CLINICAL HISTORY: Left lower extremity edema. COMPARISON STUDY: No priors. TECHNIQUE: Real-time, grayscale, and color Doppler sonography of the deep veins of the left lower ext remity was performed from the inguinal crease to the calf. Compression and augmentation were utilized . FINDINGS: There is no sonographic evidence of deep venous thrombosis identified in the left lower ext remity. The common femoral, superficial femoral, and popliteal veins are patent and normally compress ible. The greater saphenous vein and the profunda femoris vein at the junction with the common femora l vein are clear. The visualized calf veins are patent. Soft tissue edema is noted in the left leg. IMPRESSION: There is no sonographic evidence of deep venous thrombosis identified in the left lower e xtremity. ACT 112: Negative or not required by law. Electronically signed by: Paco Pardo M.D. 11/28/2021 5:16 PM
[2021-11-28] MEDS ORDERED: cefTRIAXone SODIUM 2,000 MG/70 ML BAG IV STA (17:20)
--- NOTE | 2021-11-28 18:48 | History & Physical Report ---
Date of Service November 28, 2021 Assessment & Plan (1) Pulmonary edema: (2) Acute decompensated heart failure: Plan: This is an 86yo M with a PMH of combined systolic and diastolic heart failure, CKD 3 (baseline Cr 1.8-2), history of kidney stones, history of carotid stenosis s/p MAYELA, CAD (s/p CABG in 1995), HTN, PVD and other medical problems as below who presents with shortness of breath and found to be in decompensated heart failure. Progressive SOB, developed PND overnight Saturating 100% on 2L NC BNP 2,520, HS troponin 41 CXR with cardiomegaly with evidence of congestive failure and pulmonary edema. Small pleural effusions with bibasilar consolidation 2D echo from August 2021 with EF 45 to 50%, moderate size anterior and lateral wall motion abnormality with hypokinesis, aortic valve sclerosis without stenosis, grade 3 diastolic dysfunction Repeat troponin, repeat ECG in AM, routine cardiology consult Low sodium diet, monitor daily weights Given Bumex 1mg IV in ED. Plan to continue Bumex 1mg IV BID (3) Left leg cellulitis: Plan: Persistent swelling over the past year but developed overlying redness and tenderness 2 days ago Afebrile, leukocytosis of 14 K Continue Rocephin (4) Elevated troponin: Plan: Most likely demand ischemia in setting of CHF, CKD. No chest pain (5) Anemia in chronic kidney disease: Plan: Received IV iron during previous admission. Hgb 9.7, at baseline. Continue iron supplement BID (6) HTN (hypertension): Plan: Continue carvedilol and hydralazine. Nifedipine and losartan discontinued on previous admission (7) PAD (peripheral artery disease): Plan: Continue aspirin, statin (8) Chronic kidney disease: Plan: CKD III with baseline Cr 1.8-2. Currently at baseline. Monitor with daily BMP (9) BPH w urinary obs/LUTS: Plan: Continue Flomax. Bladder scan as needed DVT Ppx: Xarelto (unclear why patient is on Xarelto - will attempt to obtain cardiology records) Code status: FULL PCP: Silvio Dispo: Admitted to PCU Patient seen in collaboration with Dr. Mesa. Please see addendum. History of Present Illness Chief Complaint: SOB Primary Care Provider: Panchito Anguiano PA-C This is an 86yo M with a PMH of combined systolic and diastolic heart failure, CKD 3 (baseline Cr 1.8-2), history of kidney stones, history of carotid stenosis s/p MAYELA, CAD (s/p CABG in 1995), HTN, PVD and other medical problems as below who presents with shortness of breath that is worsened over the past week. Patient has become more dyspneic with exertion but woke up with more severe shortness of breath at 3 this morning. States it feels similar to when he has had fluid in his lungs in the past. Is able to breathe more easily when sitting upright. Had some chest pain last evening that is since resolved. Is feeling more comfortable on oxygen and saturating at 100% on 2 L nasal cannula although still needing to sit upright during interview. Also endorsing left lower extremity redness and tenderness that is worsened with past 2 days. States that lower extremities have been swollen for better part of the last year and has been taking diuretics for that. Lives in [place] with niece and nephew. Follows with Dr. Chavira of cardiology in [place]. Denies any fever or chills. No congestion, headache, palpitations, wheezing, nausea, vomiting, abdominal pain, dysuria, diarrhea or constipation. States he has been taking all home medications as scheduled. Was admitted to our service with similar presentation in late August. Allergies Allergy/AdvReac Type Severity Reaction Status Date / Time doxazosin [From Cardura] Allergy Intermediate HIVES and Verified 11/28/21 17:56 ITCHING furosemide [From Lasix] Allergy Intermediate HIVES and Verified 11/28/21 17:56 ITCHING hydrochlorothiazide Allergy Intermediate ITCHING Verified 11/28/21 17:56 potassium chloride Allergy Intermediate HIVES and Verified 11/28/21 17:56 ITCHING clonidine Allergy Unknown Unknown Verified 11/28/21 17:56 ketorolac [From Toradol] AdvReac Severe ACUTE Verified 11/28/21 17:56 KIDNEY INJURY lisinopril AdvReac Intermediate COUGH Verified 11/28/21 17:56 Home Medications Medication Instructions Recorded Confirmed Type ascorbic acid (vitamin C) 1,000 mg 1 g PO DAILY #120 tabs 11/24/20 11/28/21 Rx tablet aspirin 81 mg tablet,delayed 81 mg PO DAILY #30 tabs 11/24/20 11/28/21 Rx release carvedilol 12.5 mg tablet 12.5 mg PO BID #60 tabs 11/24/20 11/28/21 Rx dutasteride 0.5 mg capsule 0.5 mg PO DAILY #30 caps 11/24/20 11/28/21 Rx ezetimibe 10 mg tablet 10 mg PO DAILY #30 tabs 11/24/20 11/28/21 Rx magnesium oxide 400 mg PO DAILY #30 caps 11/24/20 11/28/21 Rx nitroglycerin 0.4 mg sublingual 0.4 mg sublingual Q5M PRN chest 11/24/20 11/28/21 Rx tablet (Nitrostat) pain #1 tab rivaroxaban 2.5 mg tablet (Xarelto) 2.5 mg PO BID #60 tabs 11/24/20 11/28/21 Rx rosuvastatin 5 mg tablet 5 mg PO DAILY #30 tabs 11/24/20 11/28/21 Rx tamsulosin 0.4 mg capsule 0.8 mg PO DAILY #30 caps 11/24/20 11/28/21 Rx triamcinolone acetonide 0.1 % 1 applic topical TID PRN itching 11/24/20 11/28/21 Rx topical cream #15 grams vitamin B12 500 mcg-folic acid 400 1 tab PO DAILY #30 tabs 11/24/20 11/28/21 Rx mcg tablet docusate sodium 100 mg capsule 100 mg PO BID 12/06/20 11/28/21 History (Colace) zinc 50 mg tablet 50 mg PO DAILY 12/06/20 11/28/21 History nitroglycerin 0.4 mg/hr 1 patch transdermal QAM 08/27/21 11/28/21 History transdermal 24 hour patch (Nitro-Dur) folic acid 400 mcg tablet 400 mcg PO QAM #30 tabs 08/31/21 11/28/21 Rx menthol 0.44 %-zinc oxide 20.6 % 1 applic topical TID PRN skin 09/05/21 11/28/21 Rx topical ointment (Calmoseptine) irritation #113 grams cholecalciferol (vitamin D3) 50 50 mcg PO DAILY 09/25/21 11/28/21 History mcg (2,000 unit) tablet (Vitamin D3) ferrous sulfate 134 mg (27 mg 134 mg PO BID 09/25/21 11/28/21 History iron) tablet metolazone 5 mg tablet 5 mg PO Q OTHER DAY 09/25/21 11/28/21 History potassium chloride 20 mEq 40 meq PO DAILY 09/25/21 11/28/21 History tablet,extended release(part/cryst) bumetanide 1 mg tablet 1 mg PO DAILY #30 tabs 09/29/21 11/28/21 Rx darbepoetin lizzy in polysorbat 60 60 mcg subcut .COMPLEX #1 mL 10/03/21 11/28/21 Rx mcg/mL in polysorbate injection (Aranesp) hydralazine 25 mg tablet 25 mg PO BID #90 tabs 10/17/21 11/28/21 Rx omega-3 fatty acids 1,000 mg 2,000 mg PO BID 11/28/21 11/28/21 History capsule Past Med/Surg History Medical History (Updated 11/28/21 @ 19:51 by Kenna Bello PA-C) Carotid stenosis Diastolic CHF, chronic Hearing loss Hematuria HTN (hypertension) Hyperlipidemia Nephrolithiasis Osteoarthritis PAD (peripheral artery disease) Surgical History H/O endarterectomy H/O lithotripsy Hx of CABG S/P colonoscopic polypectomy S/P total knee arthroplasty left Family History Denies family history of Diabetes Kidney disease Social History Smoking Status: Never smoker Hx Alcohol Use: Yes (15 years ago) Hx Substance Use: No Preferred Language: Arabic Communication Ability: Effective Hearing Ability: Hard of Hearing Patch Driller Required: No Beliefs That Will Affect Care: None Current Living Situation: Alone current occupational status: retired Feels Safe at Home: Yes Assistive Devices: Cane, Hospital Bed and Walker Review of Systems Review of Systems: At least ten systems reviewed and negative except as noted in the HPI. Physical Exam Physical Exam: Please see Dr. Mesa's addendum for physical exam Results & Data Results & Data ([facility]) Vital Signs (Past 12 Hours) Vital Signs Temp Pulse Pulse Resp BP BP Pulse Ox 11/28/21 18:22 83 24 129/64 99 11/28/21 17:27 79 26 H 129/72 100 11/28/21 15:33 74 24 127/62 95 11/28/21 14:40 125/59 L 11/28/21 14:35 36.7 C 82 14 78/50 L 95 O2 Del Method O2 Flow Rate 11/28/21 18:22 Nasal Cannula 2 11/28/21 17:27 Nasal Cannula 2 11/28/21 15:33 Room Air 11/28/21 14:40 11/28/21 14:35 Room Air Laboratory Results Short CBC 11/28/21 Range/Units 15:11 WBC 14.56 H (4.8-10.8) K/ul Hgb 9.7 L (14.0-18.0) g/dl Hct 30.6 L (40.1-51.0) % Plt Count 187 (130-400) K/uL BMP 11/28/21 15:11 Sodium 135 L Potassium 3.4 L Chloride 96 L Carbon Dioxide 29 BUN 51 H Creatinine 1.78 H Glucose 129 H Calcium 8.7 Liver Function 11/28/21 Range/Units 15:11 Total Bilirubin 0.7 (0.2-1.0) mg/dl AST 18 (13-39) U/L ALT 33 (7-52) U/L Alkaline Phosphatase 90 (34-104) U/L Albumin 3.6 (3.4-5.0) gm/dl Diagnostic Findings Chest X-Ray 11/28/21 14:49 SINGLE VIEW CHEST CLINICAL HISTORY: Atypical chest pain. FINDINGS: An AP, portable, upright chest radiograph is compared to study dated 11/06/2021. Correlation is made with chest CT dated 08/28/2021. The examination is degraded by portable technique and apical lordotic positioning. The patient is status post midline sternotomy. The heart is enlarged noting atherosclerotic calcification of the thoracic ureter. There is pulmonary vascular congestion with mild interstitial edema. There are small pleural effusions with bibasilar consolidation. No pneumothorax is seen. The skeletal structures are osteopenic. The bony thorax is grossly intact. Calcific tendinopathy is noted in the left shoulder. IMPRESSION: 1. Cardiomegaly with evidence of congestive failure and pulmonary edema. 2. Small pleural effusions with bibasilar consolidation. ACT 112: Negative or not required by law. Electronically signed by: Paco Pardo M.D. 11/28/2021 3:02 PM Venous Doppler Study 11/28/21 14:51 ULTRASOUND LEFT LOWER EXTREMITY VENOUS CLINICAL HISTORY: Left lower extremity edema. COMPARISON STUDY: No priors. TECHNIQUE: Real-time, grayscale, and color Doppler sonography of the deep veins of the left lower extremity was performed from the inguinal crease to the calf. Compression and augmentation were utilized. FINDINGS: There is no sonographic evidence of deep venous thrombosis identified in the left lower extremity. The common femoral, superficial femoral, and popliteal veins are patent and normally compressible. The greater saphenous vein and the profunda femoris vein at the junction with the common femoral vein are clear. The visualized calf veins are patent. Soft tissue edema is noted in the left leg. IMPRESSION: There is no sonographic evidence of deep venous thrombosis identified in the left lower extremity. ACT 112: Negative or not required by law. Electronically signed by: Paco Pardo M.D. 11/28/2021 5:16 PM Code Status & VTE Plan VTE Prophylaxis Plan VTE Prophylaxis will be ordered: Yes Supervising Physician Co-Signing Physician Notes Pt is a 86 y/o M with hx of HFpEF, CKD III with anemia, CAD s/p CABG, b/l CEA, HTN, HLD, BPH, on Xarelto admitted for acute on CHF and L leg cellulitis. PE: Mild respiratory distress, NC in place Lungs: Good air entry b/l but b/l lower lobe crackles Cardiac: Normal S1/S2, no murmur Abd: ND, soft and NT MSK: b/l leg pitting edema L>R --- L leg: erythematous and warmth to touch, bandage in place Psych: AAOx3, normal affect A/P: Acute on Chronic HFpEF: -received IV bumex 1mg in the ER -will continue bumex 1mg IV BID for now ---- will hold his metolazone for now (he is on 5mg every other day) ---- restart depending on pt's response to IV bumex -repeat Echo and cards consult - Daily weight and Strict I/O - trop is elevated but lower compared to previous value -will trend trop L LE cellulitis: -Doppler neg for DVT -will continue ceftriaxone Pt is on Xarelto: reviewed cardiology records from [facility]: does not appear to have any hx of DVT or PE -will continue xarelto Agree with A/P by Kenna Bello PA-C (1) Chronic kidney disease Chronic kidney disease stage: unspecified stage Qualified Code(s): N18.9 - Chronic kidney disease, unspecified (2) Pulmonary edema Chronicity: acute Qualified Code(s): J81.0 - Acute pulmonary edema
[2021-11-28] MEDS ORDERED: POTASSIUM CHLORIDE CRTAB 20 MEQ TABCR PO STA (20:12)
[2021-11-29] MEDS ORDERED: ACETAMINOPHEN 325 MG TAB PO PRN (01:29)
[2021-11-29] MEDS ORDERED: TRIAMCINOLONE ACET 0.1% CR 15 GM TUBE TOP PRN (01:29)
[2021-11-29] MEDS ORDERED: FERROUS SULFATE PO SCH (01:29)
[2021-11-29] MEDS ORDERED: ONDANSETRON INJ 2 MG/ML 2 ML VIAL IV PRN (01:29)
[2021-11-29] MEDS ORDERED: POLYETHYLENE (MIRALAX) 17 GM PACK PO PRN (01:29)
[2021-11-29] MEDS: hydrALAZINE HCL 25 MG TAB PO SCH ×3 (02:00→20:38)
[2021-11-29] MEDS: DOCUSATE SODIUM 100 MG CAP PO SCH ×3 (02:01→20:36)
[2021-11-29] MEDS: carvediloL 12.5 MG TAB PO SCH ×3 (02:01→20:47)
[2021-11-29] MEDS: RIVAROXABAN 2.5 MG TAB PO SCH ×3 (03:26→20:36)
[2021-11-29 06:46] LABS: Hematocrit (blood only) 28.5 % (40.1-51.0); Hemoglobin 9.1 g/dl (14.0-18.0); Mean Corpuscular Hemoglobin 28.4 pg (25.0-34.0); Mean Corpuscular Hgb Conc 31.9 g/dL (32.0-36.0); Mean Corpuscular Volume 89.1 fL (80.0-100.0); Platelet Count 171 K/uL (130-400); RDW Coefficient of Variation 16.3 % (11.5-14.5); White Blood Count 10.87 K/ul (4.8-10.8)
[2021-11-29 07:22] LABS: BUN Creatinine Ratio 29.3 (10-20); Calcium 8.4 mg/dl (8.5-10.1); Creatinine Clr Calc Pharmacy 29.3 ml/min; Est GFR (African American) 38.6 ml/min; Est GFR (Non-African American) 33.3 ml/min; Potassium 3.1 mmol/L (3.5-5.1)
[2021-11-29] MEDS: MAGNESIUM OXIDE 400 MG TAB PO SCH (08:02)
[2021-11-29] MEDS: ZINC SULFATE 220 MG CAPSULE PO SCH (08:02)
[2021-11-29] MEDS: CHOLECALCIFEROL 1,000 UNITS 25 MCG TAB PO SCH (08:02)
[2021-11-29] MEDS: TAMSULOSIN HCL 0.4 MG CAP PO SCH (08:02)
[2021-11-29] MEDS: POTASSIUM CHLORIDE CRTAB 20 MEQ TABCR PO SCH (08:02)
[2021-11-29] MEDS: ROSUVASTATIN CALCIUM 5 MG TAB PO SCH (08:02)
[2021-11-29] MEDS: FOLIC ACID 400 MCG TAB PO SCH (08:03)
[2021-11-29] MEDS: ASPIRIN 81 MG ECTAB PO SCH (08:03)
[2021-11-29] MEDS: NITROGLYCERIN 0.4 MG/HR PATCH TD SCH (08:03)
[2021-11-29] MEDS: ASCORBIC ACID 500 MG TAB PO SCH (08:03)
[2021-11-29] MEDS: EZETIMIBE 10 MG TABLET PO SCH (08:03)
[2021-11-29] MEDS: BUMETANIDE 1 MG in SYRINGE 0 ML IV SCH ×2 (08:04→15:57)
--- NOTE | 2021-11-29 08:34 | Hospitalist Progress Note ---
Date of Service November 29, 2021 Assessment & Plan (1) Pulmonary edema: (2) Acute decompensated heart failure: Plan: This is an 86yo M with a PMH of combined systolic and diastolic heart failure, CKD 3 (baseline Cr 1.8-2), history of kidney stones, history of carotid stenosis s/p MAYELA, CAD (s/p CABG in 1995), HTN, PVD and other medical problems as below who presents with shortness of breath and found to be in decompensated heart failure. Pt also found bacteremia. Progressive SOB, developed PND overnight Saturating 100% on 2L NC on admission BNP 2,520, HS troponin 41 CXR with cardiomegaly with evidence of congestive failure and pulmonary edema. Small pleural effusions with bibasilar consolidation 2D echo from August 2021 with EF 45 to 50%, moderate size anterior and lateral wall motion abnormality with hypokinesis, aortic valve sclerosis without stenosis, g rade 3 diastolic dysfunction Low sodium diet, monitor daily weights Given Bumex 1mg IV in ED. Plan to continue Bumex 1mg IV BID Cardiology consulted Continue currently with his cardiac medications and diuresis. Patient has outpatient stop attacher, Dr. Chavira. Continue all other outpatient cardiac meds including ASA, carvedilol, zetia, crestor. He has outpatient vascular team as well at [facility]. Reviewed records from patient's stop attacher, patient on Xarelto 2.5 mg twice daily in addition to aspirin 81 mg daily given the results of Compass trial. (3) Left leg cellulitis: Plan: Persistent swelling over the past year but developed overlying redness and tenderness 2 days ago Afebrile, leukocytosis of 14 K Continue Rocephin Bacteremia Gram-negative bacilli Repeat blood culture Continue Rocephin ID consult (4) Elevated troponin: Plan: Most likely demand ischemia in setting of CHF, CKD. No chest pain (5) Anemia in chronic kidney disease: Plan: Received IV iron during previous admission. Hgb 9.7, at baseline. Continue iron supplement BID (6) HTN (hypertension): Plan: Continue carvedilol and hydralazine. Nifedipine and losartan discontinued on previous admission (7) PAD (peripheral artery disease): Plan: Continue aspirin, statin (8) Chronic kidney disease: Plan: CKD III with baseline Cr 1.8-2. Currently at baseline. Monitor with daily BMP (9) BPH w urinary obs/LUTS: Plan: Continue Flomax. Bladder scan as needed DVT Ppx: Xarelto Code status: FULL PCP: Dr. Anguiano Dispo: Admitted to PCU Admission and Anticipated Discharge Date Admission Date: November 28, 2021 Subjective Patient seen in follow-up of CHF Pt also found bacteremic Currently sitting up in chair in NAD Reports feeling much better Denies any fevers, chills, chest pain, shortness of breath, palpitations, dizziness Review of Systems Review of Systems: All systems reviewed & are unremarkable except as noted in Subjective Physical Exam Physical Exam: General: elderly frail M in NAD, breathing comfortably on RA Lungs: Good air entry b/l but b/l lower lobe mild crackles Cardiac: Normal S1/S2, no murmur Abd: ND, soft and NT, + bowel sounds MSK: b/l leg pitting edema L>R --- L leg: erythematous and warmth to touch, bandage in place Psych: AAOx3, normal affect Results & Data Results & Data ([facility]) Vital Signs (Past 12 Hours) Vital Signs Temp Pulse Pulse Resp BP Pulse Ox O2 Del Method 11/29/21 08:00 36.8 C 65 18 122/61 100 11/29/21 05:06 36.8 C 53 L 16 102/56 L 98 Nasal Cannula 11/29/21 01:00 72 11/29/21 01:00 Nasal Cannula 11/29/21 01:08 37.1 C 77 18 138/61 99 11/28/21 21:00 84 18 145/66 H 96 Nasal Cannula O2 Flow Rate 11/29/21 08:00 11/29/21 05:06 3.0 11/29/21 01:00 11/29/21 01:00 2 11/29/21 01:08 11/28/21 21:00 2 Laboratory Results 11/29/21 11/29/21 11/28/21 Range/Units 06:30 06:30 15:11 WBC 10.87 H (4.8-10.8) K/ul RBC 3.20 L (4.63-6.08) M/uL Hgb 9.1 L (14.0-18.0) g/dl Hct 28.5 L (40.1-51.0) % MCV 89.1 (80.0-100.0) fL MCH 28.4 (25.0-34.0) pg MCHC 31.9 L (32.0-36.0) g/dL RDW Std Deviation 54.0 H (36.4-46.3) fL RDW Coeff of Dmitriy 16.3 H (11.5-14.5) % Plt Count 171 (130-400) K/uL MPV 11.0 (9.4-12.4) fL Immature Gran % (Auto) % Neut % (Auto) % Lymph % (Auto) % Ventura % (Auto) % Eos % (Auto) % Baso % (Auto) % Neut # (Auto) (1.4-6.5) K/uL Lymph # (Auto) (1.2-3.4) K/uL Ventura # (Auto) (0.24-0.82) K/uL Eos # (Auto) (0-0.50) K/uL Baso # (Auto) (0-0.2) K/uL Immature Gran # (Auto) (0.00-0.02) K/uL PT (9.0-12.0) Seconds INR (0.9-1.1) APTT (21.0-31.0) Seconds PTT Ratio Sodium 133 L (136-145) mmol/L Potassium 3.1 L (3.5-5.1) mmol/L Chloride 93 L (98-107) mmol/L Carbon Dioxide 30 (21-32) mmol/L Anion Gap 10 (3-11) BUN 53 H (6-23) mg/dl Creatinine 1.81 H (0.6-1.4) mg/dl Est Cr Clr Drug Dosing 29.3 ml/min Est GFR ( Amer) 38.6 ml/min Est GFR (Non-Af Amer) 33.3 ml/min BUN/Creatinine Ratio 29.3 H (10-20) Glucose 164 H (70-99(Fasting)) mg/dl Calcium 8.4 L (8.5-10.1) mg/dl Total Bilirubin (0.2-1.0) mg/dl AST (13-39) U/L ALT (7-52) U/L Alkaline Phosphatase (34-104) U/L Troponin I High Sens (0-20) pg/ml B-Natriuretic Peptide (0-100) pg/ml Total Protein (6.0-8.3) gm/dl Albumin (3.4-5.0) gm/dl Globulin (2.5-4.0) gm/dl Albumin/Globulin Ratio (0.9-2) Lipase (11-82) U/L SARS-CoV-2 (PCR) NEGATIVE (Negative) Influenza Type A (PCR) Negative (Neg) Influenza Type B (PCR) Negative (Neg) RSV (RT-PCR) Negative (Neg) 11/28/21 11/28/21 11/28/21 Range/Units 15:11 15:11 15:11 WBC (4.8-10.8) K/ul RBC (4.63-6.08) M/uL Hgb (14.0-18.0) g/dl Hct (40.1-51.0) % MCV (80.0-100.0) fL MCH (25.0-34.0) pg MCHC (32.0-36.0) g/dL RDW Std Deviation (36.4-46.3) fL RDW Coeff of Dmitriy (11.5-14.5) % Plt Count (130-400) K/uL MPV (9.4-12.4) fL Immature Gran % (Auto) % Neut % (Auto) % Lymph % (Auto) % Ventura % (Auto) % Eos % (Auto) % Baso % (Auto) % Neut # (Auto) (1.4-6.5) K/uL Lymph # (Auto) (1.2-3.4) K/uL Ventura # (Auto) (0.24-0.82) K/uL Eos # (Auto) (0-0.50) K/uL Baso # (Auto) (0-0.2) K/uL Immature Gran # (Auto) (0.00-0.02) K/uL PT 13.0 H (9.0-12.0) Seconds INR 1.2 H (0.9-1.1) APTT 29.7 (21.0-31.0) Seconds PTT Ratio 1.1 Sodium 135 L (136-145) mmol/L Potassium 3.4 L (3.5-5.1) mmol/L Chloride 96 L (98-107) mmol/L Carbon Dioxide 29 (21-32) mmol/L Anion Gap 10 (3-11) BUN 51 H (6-23) mg/dl Creatinine 1.78 H (0.6-1.4) mg/dl Est Cr Clr Drug Dosing 29.9 ml/min Est GFR ( Amer) 39.4 ml/min Est GFR (Non-Af Amer) 34.0 ml/min BUN/Creatinine Ratio 28.7 H (10-20) Glucose 129 H (70-99(Fasting)) mg/dl Calcium 8.7 (8.5-10.1) mg/dl Total Bilirubin 0.7 (0.2-1.0) mg/dl AST 18 (13-39) U/L ALT 33 (7-52) U/L Alkaline Phosphatase 90 (34-104) U/L Troponin I High Sens 41.1 H D (0-20) pg/ml B-Natriuretic Peptide 2520 H (0-100) pg/ml Total Protein 6.1 (6.0-8.3) gm/dl Albumin 3.6 (3.4-5.0) gm/dl Globulin 2.5 (2.5-4.0) gm/dl Albumin/Globulin Ratio 1.4 (0.9-2) Lipase 25 (11-82) U/L SARS-CoV-2 (PCR) (Negative) Influenza Type A (PCR) (Neg) Influenza Type B (PCR) (Neg) RSV (RT-PCR) (Neg) 11/28/21 Range/Units 15:11 WBC 14.56 H (4.8-10.8) K/ul RBC 3.45 L (4.63-6.08) M/uL Hgb 9.7 L (14.0-18.0) g/dl Hct 30.6 L (40.1-51.0) % MCV 88.7 (80.0-100.0) fL MCH 28.1 (25.0-34.0) pg MCHC 31.7 L (32.0-36.0) g/dL RDW Std Deviation 53.7 H (36.4-46.3) fL RDW Coeff of Dmitriy 16.6 H (11.5-14.5) % Plt Count 187 (130-400) K/uL MPV 11.5 (9.4-12.4) fL Immature Gran % (Auto) 0.5 % Neut % (Auto) 89.9 % Lymph % (Auto) 2.3 % Ventura % (Auto) 7.1 % Eos % (Auto) 0.1 % Baso % (Auto) 0.1 % Neut # (Auto) 13.07 H (1.4-6.5) K/uL Lymph # (Auto) 0.34 L (1.2-3.4) K/uL Ventura # (Auto) 1.04 H (0.24-0.82) K/uL Eos # (Auto) 0.02 (0-0.50) K/uL Baso # (Auto) 0.02 (0-0.2) K/uL Immature Gran # (Auto) 0.07 H (0.00-0.02) K/uL PT (9.0-12.0) Seconds INR (0.9-1.1) APTT (21.0-31.0) Seconds PTT Ratio Sodium (136-145) mmol/L Potassium (3.5-5.1) mmol/L Chloride (98-107) mmol/L Carbon Dioxide (21-32) mmol/L Anion Gap (3-11) BUN (6-23) mg/dl Creatinine (0.6-1.4) mg/dl Est Cr Clr Drug Dosing ml/min Est GFR ( Amer) ml/min Est GFR (Non-Af Amer) ml/min BUN/Creatinine Ratio (10-20) Glucose (70-99(Fasting)) mg/dl Calcium (8.5-10.1) mg/dl Total Bilirubin (0.2-1.0) mg/dl AST (13-39) U/L ALT (7-52) U/L Alkaline Phosphatase (34-104) U/L Troponin I High Sens (0-20) pg/ml B-Natriuretic Peptide (0-100) pg/ml Total Protein (6.0-8.3) gm/dl Albumin (3.4-5.0) gm/dl Globulin (2.5-4.0) gm/dl Albumin/Globulin Ratio (0.9-2) Lipase (11-82) U/L SARS-CoV-2 (PCR) (Negative) Influenza Type A (PCR) (Neg) Influenza Type B (PCR) (Neg) RSV (RT-PCR) (Neg) Medications Administered Current Inpatient Medications Acetaminophen (Acetaminophen 325 Mg Tab) 650 mg PO Q4H PRN PRN Reason: Pain or Fever Stop: 12/29/21 01:28 Ascorbic Acid (Ascorbic Acid 500 Mg Tab) 1,000 mg PO DAILY KAREN Stop: 12/29/21 08:59 Last Admin: 11/29/21 08:03 Dose: 1,000 mg Aspirin (Aspirin 81 Mg Ectab) 81 mg PO DAILY KAREN Stop: 12/29/21 08:59 Last Admin: 11/29/21 08:03 Dose: 81 mg Calamine/Phenol (Menthol-Zinc Oxide 360 Appln/120 Gm Tube) 1 appln EXT TID PRN PRN Reason: skin irritation Stop: 12/29/21 01:28 Carvedilol (Carvedilol 12.5 Mg Tab) 12.5 mg PO BID KAREN Stop: 12/29/21 01:28 Last Admin: 11/29/21 08:03 Dose: 12.5 mg Docusate Sodium (Docusate Sodium 100 Mg Cap) 100 mg PO BID KAREN Stop: 12/29/21 01:28 Last Admin: 11/29/21 08:03 Dose: 100 mg Ezetimibe (Ezetimibe 10 Mg Tablet) 10 mg PO DAILY KAREN Stop: 12/29/21 08:59 Last Admin: 11/29/21 08:03 Dose: 10 mg Folic Acid (Folic Acid 400 Mcg Tab) 400 mcg PO QAM KAREN Stop: 12/29/21 08:59 Last Admin: 11/29/21 08:03 Dose: 400 mcg Hydralazine HCl (Hydralazine Hcl 25 Mg Tab) 25 mg PO BID AKREN Stop: 12/29/21 01:28 Last Admin: 11/29/21 08:03 Dose: 25 mg Bumetanide 1 mg/ Syringe 4 mls @ 4 mls/min IV BID@0900,1700 KAREN Stop: 12/29/21 08:59 Last Admin: 11/29/21 08:04 Dose: 4 mls/min Magnesium Oxide (Magnesium Oxide 400 Mg Tab) 400 mg PO DAILY KAREN Stop: 12/29/21 08:59 Last Admin: 11/29/21 08:02 Dose: 400 mg Miscellaneous (Dutasteride: Order Awaiting Action) 1 each N/A QS KAREN Stop: 12/29/21 07:59 Last Admin: 11/29/21 08:04 Dose: Not Given Miscellaneous (Remove Nitro-Dur Patch) 1 each N/A DAILY@2100 KAREN Stop: 12/29/21 01:28 Last Admin: 11/29/21 02:28 Dose: Not Given Nitroglycerin (Nitroglycerin 0.4 Mg/Hr Patch) 1 patch TD QAM KAREN Stop: 12/29/21 08:59 Last Admin: 11/29/21 08:03 Dose: 1 patch Ondansetron HCl (Ondansetron Inj 2 Mg/Ml 2 Ml Vial) 4 mg IV Q6H PRN PRN Reason: Nausea Stop: 12/29/21 01:28 Polyethylene Glycol (Polyethylene (Miralax) 17 Gm Pack) 17 gm PO DAILY PRN PRN Reason: Constipation Stop: 12/29/21 01:28 Potassium Chloride (Potassium Chloride Crtab 20 Meq Tabcr) 40 meq PO DAILY KAREN Stop: 12/29/21 08:59 Last Admin: 11/29/21 08:02 Dose: 40 meq Rivaroxaban (Rivaroxaban 2.5 Mg Tab) 2.5 mg PO BID KAREN Stop: 12/29/21 02:29 Last Admin: 11/29/21 08:03 Dose: 2.5 mg Rosuvastatin Calcium (Rosuvastatin Calcium 5 Mg Tab) 5 mg PO DAILY KAREN Stop: 12/29/21 08:59 Last Admin: 11/29/21 08:02 Dose: 5 mg Tamsulosin HCl (Tamsulosin Hcl 0.4 Mg Cap) 0.8 mg PO DAILY KAREN Stop: 12/29/21 08:59 Last Admin: 11/29/21 08:02 Dose: 0.8 mg Triamcinolone Acetonide (Triamcinolone Acet 0.1% Cr 15 Gm Tube) 1 appln TOP TID PRN PRN Reason: itching Stop: 12/29/21 01:28 Vitamin D (Cholecalciferol 1,000 Units 25 Mcg Tab) 2,000 units PO DAILY KAREN Stop: 12/29/21 08:59 Last Admin: 11/29/21 08:02 Dose: 2,000 units Zinc Sulfate (Zinc Sulfate 220 Mg Capsule) 220 mg PO DAILY KAREN Stop: 12/29/21 08:59 Last Admin: 11/29/21 08:02 Dose: 220 mg (1) Chronic kidney disease Chronic kidney disease stage: unspecified stage Qualified Code(s): N18.9 - Chronic kidney disease, unspecified (2) Pulmonary edema Chronicity: acute Qualified Code(s): J81.0 - Acute pulmonary edema
[2021-11-29] MEDS ORDERED: cefTRIAXone SODIUM 1,000 MG in DEXTROSE 5% 50 ML IV SCH (09:00)
--- NOTE | 2021-11-29 09:16 | Cardiology Consultation ---
Date of Consultation November 29, 2021 Assessment & Plan (1) Acute on chronic systolic HF (heart failure): (2) Left leg cellulitis: (3) Anemia in chronic kidney disease: (4) Elevated troponin: (5) Pulmonary edema: Plan Patient admitted with worsening SOB, volume overload including pulm edema and LE edema consistent with acute on chronic HFrEF. Received IV diuretics since admission with improving respiratory status. He continues to have LE edema bilaterally. Continue IV diuretics today. Supplement potassium. Monitor renal function 1500 ml fluid restriction. Echo in August revealed mildly reduced LVEF 45%. Troponin not significantly elevated (improved compared to August 2021), and likely due CHF exacerbation. Not indicative of ACS. Antibiotic therapy recommended for Left lower extremity cellulitis. Patient has outpatient vehicle check in clerk, Dr. Chavira. Continue all other outpatient cardiac meds including ASA, carvedilol, zetia, cretor. He has outpatient vascular team as well at [facility]. Patient is unsure why he takes Xarelto. No known history of DVt/PE or afib/flutter. It appears his vascular team refills anticoagulation. Will follow. Case to be discussed with Dr. Earl. Supervising Physician Co-Signing Physician Notes I have seen and examined the patient. Discussed the case with Cory and reviewed the medical record. I agree with the plan as outlined above. Patient seems to be doing better after hospital admission and current treatment. History of Present Illness Reason for Consultation: CHF Requesting Physician: Dr. Flores Attending Physician: Dr. Earl History of Present Illness Patient is a 86 year old male with complex history. [facility] History of ischemic cardiomyopathy, LVEF most recently 45-50% per echo during admission here in August 2021, combined systolic and diastolic heart failure, CKD 3 (baseline Cr 1.8-2), history of carotid stenosis s/p MAYELA, history of CAD (s/p CABG in 1995) with most recent cath report in 2017 revealing severe 3 vessel CAD with patent ORTEGA to LAD, patent SVT to diagonal, patent SVT to left circ, occluded SVG to RCA. Ongoing med therapies recommended. Other history includes dyslipidemia, HTN, PVD. he takes Xarelto on chronic basis, appears to be prescribed by vascular due to PVD. Patient denies history of PE/DVT or afib/flutter. He reports over the last few weeks, progressive SOB, edema and left leg erythema with blistering. he was admitted with hypoxia and acute HFrEF exacerbation. Started on IV diuretics. Started on antibiotic therapy for cellulitis. HS troponin only minimal elevated, consistent with CHF. At time of consult, patient reports feeling much better. SOB improved. No longer requiring supplemental O2. Edema remains present b/l. Left leg wrapped. Denies chest pain. reports compliance with meds at home. Admits to high sodium foods. No orthopnea, PND. No fever, cough, chills. Allergies Allergy/AdvReac Type Severity Reaction Status Date / Time doxazosin [From Cardura] Allergy Intermediate HIVES and Verified 11/28/21 17:56 ITCHING furosemide [From Lasix] Allergy Intermediate HIVES and Verified 11/28/21 17:56 ITCHING hydrochlorothiazide Allergy Intermediate ITCHING Verified 11/28/21 17:56 potassium chloride Allergy Intermediate HIVES and Verified 11/28/21 17:56 ITCHING clonidine Allergy Unknown Unknown Verified 11/28/21 17:56 ketorolac [From Toradol] AdvReac Severe ACUTE Verified 11/28/21 17:56 KIDNEY INJURY lisinopril AdvReac Intermediate COUGH Verified 11/28/21 17:56 Home Medications Medication Instructions Recorded Confirmed Type ascorbic acid (vitamin C) 1,000 mg 1 g PO DAILY #120 tabs 11/24/20 11/28/21 Rx tablet aspirin 81 mg tablet,delayed 81 mg PO DAILY #30 tabs 11/24/20 11/28/21 Rx release carvedilol 12.5 mg tablet 12.5 mg PO BID #60 tabs 11/24/20 11/28/21 Rx dutasteride 0.5 mg capsule 0.5 mg PO DAILY #30 caps 11/24/20 11/28/21 Rx ezetimibe 10 mg tablet 10 mg PO DAILY #30 tabs 11/24/20 11/28/21 Rx magnesium oxide 400 mg PO DAILY #30 caps 11/24/20 11/28/21 Rx nitroglycerin 0.4 mg sublingual 0.4 mg sublingual Q5M PRN chest 11/24/20 11/28/21 Rx tablet (Nitrostat) pain #1 tab rivaroxaban 2.5 mg tablet (Xarelto) 2.5 mg PO BID #60 tabs 11/24/20 11/28/21 Rx rosuvastatin 5 mg tablet 5 mg PO DAILY #30 tabs 11/24/20 11/28/21 Rx tamsulosin 0.4 mg capsule 0.8 mg PO DAILY #30 caps 11/24/20 11/28/21 Rx triamcinolone acetonide 0.1 % 1 applic topical TID PRN itching 11/24/20 11/28/21 Rx topical cream #15 grams vitamin B12 500 mcg-folic acid 400 1 tab PO DAILY #30 tabs 11/24/20 11/28/21 Rx mcg tablet docusate sodium 100 mg capsule 100 mg PO BID 12/06/20 11/28/21 History (Colace) zinc 50 mg tablet 50 mg PO DAILY 12/06/20 11/28/21 History nitroglycerin 0.4 mg/hr 1 patch transdermal QAM 08/27/21 11/28/21 History transdermal 24 hour patch (Nitro-Dur) folic acid 400 mcg tablet 400 mcg PO QAM #30 tabs 08/31/21 11/28/21 Rx menthol 0.44 %-zinc oxide 20.6 % 1 applic topical TID PRN skin 09/05/21 11/28/21 Rx topical ointment (Calmoseptine) irritation #113 grams cholecalciferol (vitamin D3) 50 50 mcg PO DAILY 09/25/21 11/28/21 History mcg (2,000 unit) tablet (Vitamin D3) ferrous sulfate 134 mg (27 mg 134 mg PO BID 09/25/21 11/28/21 History iron) tablet metolazone 5 mg tablet 5 mg PO Q OTHER DAY 09/25/21 11/28/21 History potassium chloride 20 mEq 40 meq PO DAILY 09/25/21 11/28/21 History tablet,extended release(part/cryst) bumetanide 1 mg tablet 1 mg PO DAILY #30 tabs 09/29/21 11/28/21 Rx darbepoetin lizzy in polysorbat 60 60 mcg subcut .COMPLEX #1 mL 10/03/21 11/28/21 Rx mcg/mL in polysorbate injection (Aranesp) hydralazine 25 mg tablet 25 mg PO BID #90 tabs 10/17/21 11/28/21 Rx omega-3 fatty acids 1,000 mg 2,000 mg PO BID 11/28/21 11/28/21 History capsule Patient History Medical History Carotid stenosis Diastolic CHF, chronic Hearing loss Hematuria HTN (hypertension) Hyperlipidemia Nephrolithiasis Osteoarthritis PAD (peripheral artery disease) Surgical History H/O endarterectomy H/O lithotripsy Hx of CABG S/P colonoscopic polypectomy S/P total knee arthroplasty left Family History Denies family history of Diabetes Kidney disease Social History Smoking Status: Never smoker Hx Alcohol Use: Yes Hx Substance Use: No Preferred Language: Greenlandic Communication Ability: Effective Hearing Ability: Hard of Hearing Technology Trainer Required: No Beliefs That Will Affect Care: None Current Living Situation: Alone current occupational status: retired Feels Safe at Home: Yes Safety Concerns: Feels Safe At This Time Assistive Devices: Bedside Commode, Cane, Hospital Bed and Walker Review of Systems Review of Systems: All systems reviewed & are unremarkable except as noted in HPI & below Physical Exam Constitutional: WD/WN, vitals as above average body habitus; no acute distress Respiratory: no labored breathing and no cough Auscultation: + diminished lung sounds; no crackles and no rales Cardiovascular: Rate/Rhythm: regular rate and regular rhythm Heart Sounds: + murmur (II/ systolic murmur) Vessels: no JVD Extremities: + edema (2+ B/L edema. Left leg wrapped) Gastrointestinal (Abdomen): normal bowel sounds, soft, nontender, no hepatosplenomegaly Skin: no rashes, warm and dry Neurologic: PERRL, EOMI, accommodation nl, no face palsy, no dysarthria Results & Data ([facility]) Vital Signs (Past 12 Hours) Vital Signs Temp Pulse Pulse Resp BP Pulse Ox O2 Del Method 11/29/21 08:00 Nasal Cannula 11/29/21 08:00 36.8 C 65 18 122/61 100 11/29/21 05:06 36.8 C 53 L 16 102/56 L 98 Nasal Cannula 11/29/21 01:00 72 11/29/21 01:00 Nasal Cannula 11/29/21 01:08 37.1 C 77 18 138/61 99 O2 Flow Rate 11/29/21 08:00 2 11/29/21 08:00 11/29/21 05:06 3.0 11/29/21 01:00 11/29/21 01:00 2 11/29/21 01:08 Laboratory Results Cardiac Enzymes 11/28/21 11/28/21 Range/Units 15:11 15:11 AST 18 (13-39) U/L Troponin I High Sens 41.1 H D (0-20) pg/ml B-Natriuretic Peptide 2520 H (0-100) pg/ml Coagulation 11/28/21 11/28/21 Range/Units 15:11 15:11 PT 13.0 H (9.0-12.0) Seconds APTT 29.7 (21.0-31.0) Seconds B-Natriuretic Peptide 2520 H (0-100) pg/ml CBC 11/28/21 11/29/21 Range/Units 15:11 06:30 WBC 14.56 H 10.87 H (4.8-10.8) K/ul RBC 3.45 L 3.20 L (4.63-6.08) M/uL Hgb 9.7 L 9.1 L (14.0-18.0) g/dl Hct 30.6 L 28.5 L (40.1-51.0) % Plt Count 187 171 (130-400) K/uL Neut # (Auto) 13.07 H (1.4-6.5) K/uL Lymph # (Auto) 0.34 L (1.2-3.4) K/uL Larue # (Auto) 1.04 H (0.24-0.82) K/uL Eos # (Auto) 0.02 (0-0.50) K/uL Baso # (Auto) 0.02 (0-0.2) K/uL Comprehensive Metabolic Panel 11/28/21 11/29/21 Range/Units 15:11 06:30 Sodium 135 L 133 L (136-145) mmol/L Potassium 3.4 L 3.1 L (3.5-5.1) mmol/L Chloride 96 L 93 L (98-107) mmol/L Carbon Dioxide 29 30 (21-32) mmol/L BUN 51 H 53 H (6-23) mg/dl Creatinine 1.78 H 1.81 H (0.6-1.4) mg/dl Glucose 129 H 164 H (70-99(Fasting)) mg/dl Calcium 8.7 8.4 L (8.5-10.1) mg/dl AST 18 (13-39) U/L ALT 33 (7-52) U/L Alkaline Phosphatase 90 (34-104) U/L Total Protein 6.1 (6.0-8.3) gm/dl Albumin 3.6 (3.4-5.0) gm/dl Intake and Output 11/28/21 11/29/21 11/29/21 22:59 06:59 14:59 Intake Total 70 / 310 240 / 310 60 / 60 Output Total 250 / 250 Balance 70 / 60 -10 / 60 60 / 60 Intake: IV 70 / 70 60 / 60 cefTRIAXone SODIUM 1,000 mg In 60 / 60 Dextrose 5% 50 ml @ 100 mls/hr IV Q24H [facility] Rx#:[id number] cefTRIAXone SODIUM 2,000 mg In 70 / 70 70 ml @ 140 mls/hr IV NOW [facility] Rx#:[id number] Oral 240 / 240 Output: Urine 250 / 250 Other: Weight 78.7 kg 77.7 kg Weight Measurement Method [facility] Diagnostic Findings Telemetry reviewed: sinus bradycardia and NSR ranging 55-65 bpm. No arrhythmias. EKG's reviewed since admission: NSR, inferior and lateral non specific ST/T wave abnormalities, similar to past tracing. Laboratory Results WBC 10.87 K/ul (4.8-10.8) H 11/29/21 06:30 RBC 3.20 M/uL (4.63-6.08) L 11/29/21 06:30 Hgb 9.1 g/dl (14.0-18.0) L 11/29/21 06:30 Hct 28.5 % (40.1-51.0) L 11/29/21 06:30 MCV 89.1 fL (80.0-100.0) 11/29/21 06:30 MCH 28.4 pg (25.0-34.0) 11/29/21 06:30 MCHC 31.9 g/dL (32.0-36.0) L 11/29/21 06:30 RDW Std Deviation 54.0 fL (36.4-46.3) H 11/29/21 06:30 RDW Coeff of Dmitriy 16.3 % (11.5-14.5) H 11/29/21 06:30 Plt Count 171 K/uL (130-400) 11/29/21 06:30 MPV 11.0 fL (9.4-12.4) 11/29/21 06:30 Immature Gran % (Auto) 0.5 % 11/28/21 15:11 Neut % (Auto) 89.9 % 11/28/21 15:11 Lymph % (Auto) 2.3 % 11/28/21 15:11 Larue % (Auto) 7.1 % 11/28/21 15:11 Eos % (Auto) 0.1 % 11/28/21 15:11 Baso % (Auto) 0.1 % 11/28/21 15:11 Neut # (Auto) 13.07 K/uL (1.4-6.5) H 11/28/21 15:11 Lymph # (Auto) 0.34 K/uL (1.2-3.4) L 11/28/21 15:11 Larue # (Auto) 1.04 K/uL (0.24-0.82) H 11/28/21 15:11 Eos # (Auto) 0.02 K/uL (0-0.50) 11/28/21 15:11 Baso # (Auto) 0.02 K/uL (0-0.2) 11/28/21 15:11 Immature Gran # (Auto) 0.07 K/uL (0.00-0.02) H 11/28/21 15:11 PT 13.0 Seconds (9.0-12.0) H 11/28/21 15:11 INR 1.2 (0.9-1.1) H 11/28/21 15:11 APTT 29.7 Seconds (21.0-31.0) 11/28/21 15:11 PTT Ratio 1.1 11/28/21 15:11 Sodium 133 mmol/L (136-145) L 11/29/21 06:30 Potassium 3.1 mmol/L (3.5-5.1) L 11/29/21 06:30 Chloride 93 mmol/L (98-107) L 11/29/21 06:30 Carbon Dioxide 30 mmol/L (21-32) 11/29/21 06:30 Anion Gap 10 (3-11) 11/29/21 06:30 BUN 53 mg/dl (6-23) H 11/29/21 06:30 Creatinine 1.81 mg/dl (0.6-1.4) H 11/29/21 06:30 Est Cr Clr Drug Dosing 29.3 ml/min 11/29/21 06:30 Est GFR ( Amer) 38.6 ml/min 11/29/21 06:30 Est GFR (Non-Af Amer) 33.3 ml/min 11/29/21 06:30 BUN/Creatinine Ratio 29.3 (10-20) H 11/29/21 06:30 Glucose 164 mg/dl (70-99(Fasting)) H 11/29/21 06:30 Calcium 8.4 mg/dl (8.5-10.1) L 11/29/21 06:30 Total Bilirubin 0.7 mg/dl (0.2-1.0) 11/28/21 15:11 AST 18 U/L (13-39) 11/28/21 15:11 ALT 33 U/L (7-52) 11/28/21 15:11 Alkaline Phosphatase 90 U/L (34-104) 11/28/21 15:11 Troponin I High Sens 41.1 pg/ml (0-20) H D 11/28/21 15:11 B-Natriuretic Peptide 2520 pg/ml (0-100) H 11/28/21 15:11 Total Protein 6.1 gm/dl (6.0-8.3) 11/28/21 15:11 Albumin 3.6 gm/dl (3.4-5.0) 11/28/21 15:11 Globulin 2.5 gm/dl (2.5-4.0) 11/28/21 15:11 Albumin/Globulin Ratio 1.4 (0.9-2) 11/28/21 15:11 Lipase 25 U/L (11-82) 11/28/21 15:11 SARS-CoV-2 (PCR) NEGATIVE (Negative) 11/28/21 15:11 Influenza Type A (PCR) Negative (Neg) 11/28/21 15:11 Influenza Type B (PCR) Negative (Neg) 11/28/21 15:11 RSV (RT-PCR) Negative (Neg) 11/28/21 15:11 Impressions Chest X-Ray 11/28/21 14:49 SINGLE VIEW CHEST CLINICAL HISTORY: Atypical chest pain. FINDINGS: An AP, portable, upright chest radiograph is compared to study dated 11/06/2021. Correlation is made with chest CT dated 08/28/2021. The examination is degraded by portable technique and apical lordotic positioning. The patient is status post midline sternotomy. The heart is enlarged noting atherosclerotic calcification of the thoracic ureter. There is pulmonary vascular congestion with mild interstitial edema. There are small pleural effusions with bibasilar consolidation. No pneumothorax is seen. The skeletal structures are osteopenic. The bony thorax is grossly intact. Calcific tendinopathy is noted in the left shoulder. IMPRESSION: 1. Cardiomegaly with evidence of congestive failure and pulmonary edema. 2. Small pleural effusions with bibasilar consolidation. ACT 112: Negative or not required by law. Electronically signed by: Paco Pardo M.D. 11/28/2021 3:02 PM Venous Doppler Study 11/28/21 14:51 ULTRASOUND LEFT LOWER EXTREMITY VENOUS CLINICAL HISTORY: Left lower extremity edema. COMPARISON STUDY: No priors. TECHNIQUE: Real-time, grayscale, and color Doppler sonography of the deep veins of the left lower extremity was performed from the inguinal crease to the calf. Compression and augmentation were utilized. FINDINGS: There is no sonographic evidence of deep venous thrombosis identified in the left lower extremity. The common femoral, superficial femoral, and popliteal veins are patent and normally compressible. The greater saphenous vein and the profunda femoris vein at the junction with the common femoral vein are clear. The visualized calf veins are patent. Soft tissue edema is noted in the left leg. IMPRESSION: There is no sonographic evidence of deep venous thrombosis identified in the left lower extremity. ACT 112: Negative or not required by law. Electronically signed by: Paco Pardo M.D. 11/28/2021 5:16 PM (1) Pulmonary edema Chronicity: acute Qualified Code(s): J81.0 - Acute pulmonary edema
--- NOTE | 2021-11-29 10:56 | Electrocardiogram Report ---
Test Reason : Blood Pressure : / mmHG Vent. Rate : 065 BPM Atrial Rate : 094 BPM P-R Int : 196 ms QRS Dur : 104 ms QT Int : 486 ms P-R-T Axes : 058 053 161 degrees QTc Int : 505 ms Sinus rhythm with Premature atrial complexes Prolonged QT Abnormal ECG When compared with ECG of 28-NOV-2021 14:55, Nonspecific T wave abnormality now evident in Inferior leads Confirmed by Deven Camargo ([id number]) on 11/29/2021 10:56:39 AM Referred By: REFERRED SELF Confirmed By:Swapnil Camargo
[2021-11-29 12:04] LABS: A calco-baum cmplx NotReported Not Detected (NotDetected); Bact fragilis Not Reported Not Detected (NotDetected); C auris Not Reported Not Detected (NotDetected); Calbicans Not Reported Not Detected (NotDetected); Candida glabrata Not Reported Not Detected (NotDetected); Candida krusei Not Reported Not Detected (NotDetected); Cneoformans/gatti Not Reported Not Detected (NotDetected); Cparapsilosis Not Reported Not Detected (NotDetected); Ctropicalis Not Reported Not Detected (NotDetected); E cloacae compx Not Reported Not Detected (NotDetected); Efaecalis Not Reported Not Detected (NotDetected); Efaecium Not Reported Not Detected (NotDetected); Enterobacterales Not Reported Not Detected (NotDetected); Escherichia coli Not Reported Not Detected (NotDetected); H influenzae Not Reported Not Detected (NotDetected); K aerogenes Not Reported Not Detected (NotDetected); Koxytoca Not Reported Not Detected (NotDetected); Kpneumoniae grp Not Reported Not Detected (NotDetected); Lmonocyt Not Reported Not Detected (NotDetected); N meningitidis Not Reported Not Detected (NotDetected); P aeruginosa Not Reported Not Detected (NotDetected); Proteus spp Not Reported Not Detected (NotDetected); Salmonella spp Not Reported Not Detected (NotDetected); Smarcescens Not Reported Not Detected (NotDetected); Staph lugdunensis Not Reported Not Detected (NotDetected); Staph spp. Not Reported Not Detected (NotDetected); Staphaureus Not Reported Not Detected (NotDetected); Staphepi Not Reported Not Detected (NotDetected); Stenmaltophilia Not Reported Not Detected (NotDetected); Strep agal(GrpB) Not Reported Not Detected (NotDetected); Strep pneum Not Reported Not Detected (NotDetected); Strep pyog (GrpA) Not Reported Not Detected (NotDetected); Strep spp Not Reported Not Detected (NotDetected)
[2021-11-29] MEDS ORDERED: cefTRIAXone SODIUM 1,000 MG in DEXTROSE 5% 50 ML IV STA (15:03)
[2021-11-29 19:31] LABS: Appearance Urine Clear (Clear); Bacteria Urine Automated Negative (Negative); Bilirubin Urine Negative (Negative); Blood Urine Negative (Negative); Color Urine Yellow; Glucose Urine UA Negative (Negative); Ketones Urine Negative (Negative); Leukocyte Esterase Urine Trace (Negative); Nitrite Urine Negative (Negative); Protein Urine Negative (Negative); RBC Urine Automated 0-4 /hpf (0-4); Urobilinogen Urine Negative (Negative)
[2021-11-29 19:56] LABS: Cast Urine Automated 0 /lpf (0-5)
[2021-11-30 06:46] LABS: Hematocrit (blood only) 29.4 % (40.1-51.0); Hemoglobin 9.3 g/dl (14.0-18.0); Mean Corpuscular Hemoglobin 27.9 pg (25.0-34.0); Mean Corpuscular Hgb Conc 31.6 g/dL (32.0-36.0); Mean Corpuscular Volume 88.3 fL (80.0-100.0); Mean Platelet Volume 11.6 fL (9.4-12.4); Platelet Count 160 K/uL (130-400); RDW Coefficient of Variation 16.2 % (11.5-14.5); RDW Standard Deviation 52.5 fL (36.4-46.3); Red Blood Count 3.33 M/uL (4.63-6.08); White Blood Count 9.01 K/ul (4.8-10.8)
[2021-11-30 07:32] LABS: BUN Creatinine Ratio 31.6 (10-20); Calcium 8.3 mg/dl (8.5-10.1); Creatinine Clr Calc Pharmacy 27.4 ml/min; Est GFR (African American) 35.8 ml/min; Est GFR (Non-African American) 30.9 ml/min; Magnesium 2.2 mg/dl (1.7-2.4); Phosphorus 4.2 mg/dl (2.5-4.9); Potassium 3.3 mmol/L (3.5-5.1)
[2021-11-30] MEDS: BUMETANIDE 1 MG in SYRINGE 0 ML IV SCH ×2 (07:50→17:04)
[2021-11-30] MEDS: carvediloL 12.5 MG TAB PO SCH ×2 (07:50→20:06)
[2021-11-30] MEDS: POTASSIUM CHLORIDE CRTAB 20 MEQ TABCR PO SCH (07:51)
[2021-11-30] MEDS: ROSUVASTATIN CALCIUM 5 MG TAB PO SCH (07:51)
[2021-11-30] MEDS: hydrALAZINE HCL 25 MG TAB PO SCH ×2 (07:51→20:06)
[2021-11-30] MEDS: FOLIC ACID 400 MCG TAB PO SCH (07:51)
[2021-11-30] MEDS: DOCUSATE SODIUM 100 MG CAP PO SCH ×2 (07:51→20:06)
[2021-11-30] MEDS: ASCORBIC ACID 500 MG TAB PO SCH (07:51)
[2021-11-30] MEDS: RIVAROXABAN 2.5 MG TAB PO SCH ×2 (07:51→20:06)
[2021-11-30] MEDS: ZINC SULFATE 220 MG CAPSULE PO SCH (07:51)
[2021-11-30] MEDS: MAGNESIUM OXIDE 400 MG TAB PO SCH (07:51)
[2021-11-30] MEDS: ASPIRIN 81 MG ECTAB PO SCH (07:52)
[2021-11-30] MEDS: TAMSULOSIN HCL 0.4 MG CAP PO SCH (07:52)
[2021-11-30] MEDS: EZETIMIBE 10 MG TABLET PO SCH (07:52)
[2021-11-30] MEDS: CHOLECALCIFEROL 1,000 UNITS 25 MCG TAB PO SCH (07:52)
[2021-11-30] MEDS: NITROGLYCERIN 0.4 MG/HR PATCH TD SCH (07:55)
--- NOTE | 2021-11-30 08:01 | Hospitalist Progress Note ---
Date of Service November 30, 2021 Assessment & Plan (1) Pulmonary edema: (2) Acute decompensated heart failure: Plan: This is an 86yo M with a PMH of combined systolic and diastolic heart failure, CKD 3 (baseline Cr 1.8-2), history of kidney stones, history of carotid stenosis s/p MAYELA, CAD (s/p CABG in 1995), HTN, PVD and other medical problems as below who presents with shortness of breath and found to be in decompensated heart failure. Pt also found bacteremia. Progressive SOB, developed PND overnight Saturating 100% on 2L NC on admission BNP 2,520, HS troponin 41 CXR with cardiomegaly with evidence of congestive failure and pulmonary edema. Small pleural effusions with bibasilar consolidation 2D echo from August 2021 with EF 45 to 50%, moderate size anterior and lateral wall motion abnormality with hypokinesis, aortic valve sclerosis without stenosis, g rade 3 diastolic dysfunction Low sodium diet, monitor daily weights Given Bumex 1mg IV in ED. Plan to continue Bumex 1mg IV BID Cardiology consulted Continue currently with his cardiac medications and diuresis. Patient has outpatient enamel buffer, Dr. Chavira. Continue all other outpatient cardiac meds including ASA, carvedilol, zetia, crestor. He has outpatient vascular team as well at [facility]. Reviewed records from patient's enamel buffer, patient on Xarelto 2.5 mg twice daily in addition to aspirin 81 mg daily given the results of Compass trial. (3) Left leg cellulitis: Plan: Persistent swelling over the past year but developed overlying redness and tenderness 2 days ago Afebrile, leukocytosis of 14 K Continued Rocephin, switch to zosyn now Bacteremia Gram-negative bacilli Repeat blood culture also positive , as above Switch Rocephin to zosyn UA negat. ID consult placed (4) Elevated troponin: Plan: Most likely demand ischemia in setting of CHF, CKD. No chest pain (5) Anemia in chronic kidney disease: Plan: Received IV iron during previous admission. Hgb 9.7, at baseline. Continue iron supplement BID (6) HTN (hypertension): Plan: Continue carvedilol and hydralazine. Nifedipine and losartan discontinued on previous admission (7) PAD (peripheral artery disease): Plan: Continue aspirin, statin (8) Chronic kidney disease: Plan: CKD III with baseline Cr 1.8-2. Currently at baseline. Monitor with daily BMP (9) BPH w urinary obs/LUTS: Plan: Continue Flomax. Bladder scan as needed DVT Ppx: Xarelto Code status: FULL PCP: Dr. Anguiano Dispo: Admitted to PCU Admission and Anticipated Discharge Date Admission Date: November 28, 2021 Subjective Patient seen in follow-up of CHF, Pt also found bacteremic Currently sitting up in chair in NAD Reports he has difficulty sleeping/breathing when lying flat He feels much more comfortable when he is sitting up in chair Reports feeling better Denies any fevers, chills, chest pain, shortness of breath, palpitations, dizziness Blood cultures positive for gram-negative bacilli switch to zosyn, ID consult placed Review of Systems Review of Systems: All systems reviewed & are unremarkable except as noted in Subjective Physical Exam Physical Exam: General: elderly frail M in NAD, breathing comfortably on RA, sitting up in chair Lungs: Good air entry b/l but b/l lower lobe mild crackles Cardiac: Normal S1/S2, no murmur Abd: ND, soft and NT, + bowel sounds MSK: b/l leg pitting edema L>R --- L leg: erythematous and warmth to touch, bandage in place Psych: AAOx3, normal affect Results & Data Results & Data ([facility]) Vital Signs (Past 12 Hours) Vital Signs Temp Pulse Pulse Resp BP Pulse Ox O2 Del Method 11/30/21 04:26 36.6 C 14 128/79 99 Nasal Cannula 11/29/21 23:00 59 L 11/29/21 22:28 36.5 C 62 18 118/69 97 Nasal Cannula O2 Flow Rate 11/30/21 04:26 3 11/29/21 23:00 11/29/21 22:28 2.5 Laboratory Results 11/30/21 11/30/21 11/29/21 Range/Units 06:16 06:16 19:10 WBC 9.01 (4.8-10.8) K/ul RBC 3.33 L (4.63-6.08) M/uL Hgb 9.3 L (14.0-18.0) g/dl Hct 29.4 L (40.1-51.0) % MCV 88.3 (80.0-100.0) fL MCH 27.9 (25.0-34.0) pg MCHC 31.6 L (32.0-36.0) g/dL RDW Std Deviation 52.5 H (36.4-46.3) fL RDW Coeff of Dmitriy 16.2 H (11.5-14.5) % Plt Count 160 (130-400) K/uL MPV 11.6 (9.4-12.4) fL Sodium 131 L (136-145) mmol/L Potassium 3.3 L (3.5-5.1) mmol/L Chloride 90 L (98-107) mmol/L Carbon Dioxide 31 (21-32) mmol/L Anion Gap 10 (3-11) BUN 61 H (6-23) mg/dl Creatinine 1.93 H (0.6-1.4) mg/dl Est Cr Clr Drug Dosing 27.4 ml/min Est GFR ( Amer) 35.8 ml/min Est GFR (Non-Af Amer) 30.9 ml/min BUN/Creatinine Ratio 31.6 H (10-20) Glucose 118 H (70-99(Fasting)) mg/dl Calcium 8.3 L (8.5-10.1) mg/dl Phosphorus 4.2 (2.5-4.9) mg/dl Magnesium 2.2 (1.7-2.4) mg/dl Urine Color Yellow Urine Appearance Clear (Clear) Urine pH 5.0 (4.5-7.5) Ur Specific [place] 1.010 (1.000-1.030) Urine Protein Negative (Negative) Urine Glucose (UA) Negative (Negative) Urine Ketones Negative (Negative) Urine Blood Negative (Negative) Urine Nitrite Negative (Negative) Urine Bilirubin Negative (Negative) Urine Urobilinogen Negative (Negative) Ur Leukocyte Esterase Trace H (Negative) Urine WBC (Auto) 1-5 (0-5) /hpf Urine RBC (Auto) 0-4 (0-4) /hpf U Hyaline Cast (Auto) 0 (0-5) /lpf U Epithel Cells (Auto) 5-10 H (0-5) /lpf Urine Bacteria (Auto) Negative (Negative) Bld Cult ID Panel PCR (NotDetected) 11/28/21 Range/Units 15:11 WBC (4.8-10.8) K/ul RBC (4.63-6.08) M/uL Hgb (14.0-18.0) g/dl Hct (40.1-51.0) % MCV (80.0-100.0) fL MCH (25.0-34.0) pg MCHC (32.0-36.0) g/dL RDW Std Deviation (36.4-46.3) fL RDW Coeff of Dmitriy (11.5-14.5) % Plt Count (130-400) K/uL MPV (9.4-12.4) fL Sodium (136-145) mmol/L Potassium (3.5-5.1) mmol/L Chloride (98-107) mmol/L Carbon Dioxide (21-32) mmol/L Anion Gap (3-11) BUN (6-23) mg/dl Creatinine (0.6-1.4) mg/dl Est Cr Clr Drug Dosing ml/min Est GFR ( Amer) ml/min Est GFR (Non-Af Amer) ml/min BUN/Creatinine Ratio (10-20) Glucose (70-99(Fasting)) mg/dl Calcium (8.5-10.1) mg/dl Phosphorus (2.5-4.9) mg/dl Magnesium (1.7-2.4) mg/dl Urine Color Urine Appearance (Clear) Urine pH (4.5-7.5) Ur Specific [place] (1.000-1.030) Urine Protein (Negative) Urine Glucose (UA) (Negative) Urine Ketones (Negative) Urine Blood (Negative) Urine Nitrite (Negative) Urine Bilirubin (Negative) Urine Urobilinogen (Negative) Ur Leukocyte Esterase (Negative) Urine WBC (Auto) (0-5) /hpf Urine RBC (Auto) (0-4) /hpf U Hyaline Cast (Auto) (0-5) /lpf U Epithel Cells (Auto) (0-5) /lpf Urine Bacteria (Auto) (Negative) Bld Cult ID Panel PCR PCR Panel Negative (NotDetected) Medications Administered Current Inpatient Medications Acetaminophen (Acetaminophen 325 Mg Tab) 650 mg PO Q4H PRN PRN Reason: Pain or Fever Stop: 12/29/21 01:28 Ascorbic Acid (Ascorbic Acid 500 Mg Tab) 1,000 mg PO DAILY [facility] Stop: 12/29/21 08:59 Last Admin: 11/30/21 07:51 Dose: 1,000 mg Aspirin (Aspirin 81 Mg Ectab) 81 mg PO DAILY [facility] Stop: 12/29/21 08:59 Last Admin: 11/30/21 07:52 Dose: 81 mg Calamine/Phenol (Menthol-Zinc Oxide 360 Appln/120 Gm Tube) 1 appln EXT TID PRN PRN Reason: skin irritation Stop: 12/29/21 01:28 Carvedilol (Carvedilol 12.5 Mg Tab) 12.5 mg PO BID [facility] Stop: 12/29/21 01:28 Last Admin: 11/30/21 07:50 Dose: 12.5 mg Docusate Sodium (Docusate Sodium 100 Mg Cap) 100 mg PO BID [facility] Stop: 12/29/21 01:28 Last Admin: 11/30/21 07:51 Dose: 100 mg Ezetimibe (Ezetimibe 10 Mg Tablet) 10 mg PO DAILY [facility] Stop: 12/29/21 08:59 Last Admin: 11/30/21 07:52 Dose: 10 mg Folic Acid (Folic Acid 400 Mcg Tab) 400 mcg PO QAM [facility] Stop: 12/29/21 08:59 Last Admin: 11/30/21 07:51 Dose: 400 mcg Hydralazine HCl (Hydralazine Hcl 25 Mg Tab) 25 mg PO BID [facility] Stop: 12/29/21 01:28 Last Admin: 11/30/21 07:51 Dose: 25 mg Bumetanide 1 mg/ Syringe 4 mls @ 4 mls/min IV BID@0900,1700 [facility] Stop: 12/29/21 08:59 Last Admin: 11/30/21 07:50 Dose: 4 mls/min Ceftriaxone Sodium 2,000 mg/ (Dextrose) 70 mls @ 100 mls/hr IV Q24H [facility]; Protocol Stop: 12/14/21 08:59 Last Admin: 11/30/21 07:54 Dose: 100 mls/hr Magnesium Oxide (Magnesium Oxide 400 Mg Tab) 400 mg PO DAILY [facility] Stop: 12/29/21 08:59 Last Admin: 11/30/21 07:51 Dose: 400 mg Miscellaneous (Dutasteride: Order Awaiting Action) 1 each N/A QS [facility] Stop: 12/29/21 07:59 Last Admin: 11/30/21 07:52 Dose: Not Given Miscellaneous (Remove Nitro-Dur Patch) 1 each N/A DAILY@2100 [facility] Stop: 12/29/21 01:28 Last Admin: 11/29/21 20:47 Dose: 1 each Nitroglycerin (Nitroglycerin 0.4 Mg/Hr Patch) 1 patch TD QAM [facility] Stop: 12/29/21 08:59 Last Admin: 11/30/21 07:55 Dose: 1 patch Ondansetron HCl (Ondansetron Inj 2 Mg/Ml 2 Ml Vial) 4 mg IV Q6H PRN PRN Reason: Nausea Stop: 12/29/21 01:28 Polyethylene Glycol (Polyethylene (Miralax) 17 Gm Pack) 17 gm PO DAILY PRN PRN Reason: Constipation Stop: 12/29/21 01:28 Potassium Chloride (Potassium Chloride Crtab 20 Meq Tabcr) 40 meq PO DAILY [facility] Stop: 12/29/21 08:59 Last Admin: 11/30/21 07:51 Dose: 40 meq Rivaroxaban (Rivaroxaban 2.5 Mg Tab) 2.5 mg PO BID [facility] Stop: 12/29/21 02:29 Last Admin: 11/30/21 07:51 Dose: 2.5 mg Rosuvastatin Calcium (Rosuvastatin Calcium 5 Mg Tab) 5 mg PO DAILY [facility] Stop: 12/29/21 08:59 Last Admin: 11/30/21 07:51 Dose: 5 mg Tamsulosin HCl (Tamsulosin Hcl 0.4 Mg Cap) 0.8 mg PO DAILY [facility] Stop: 12/29/21 08:59 Last Admin: 11/30/21 07:52 Dose: 0.8 mg Triamcinolone Acetonide (Triamcinolone Acet 0.1% Cr 15 Gm Tube) 1 appln TOP TID PRN PRN Reason: itching Stop: 12/29/21 01:28 Vitamin D (Cholecalciferol 1,000 Units 25 Mcg Tab) 2,000 units PO DAILY [facility] Stop: 12/29/21 08:59 Last Admin: 11/30/21 07:52 Dose: 2,000 units Zinc Sulfate (Zinc Sulfate 220 Mg Capsule) 220 mg PO DAILY [facility] Stop: 12/29/21 08:59 Last Admin: 11/30/21 07:51 Dose: 220 mg (1) Chronic kidney disease Chronic kidney disease stage: unspecified stage Qualified Code(s): N18.9 - Chronic kidney disease, unspecified (2) Pulmonary edema Chronicity: acute Qualified Code(s): J81.0 - Acute pulmonary edema
[2021-11-30] MEDS ORDERED: cefTRIAXone SODIUM 2,000 MG in DEXTROSE 5% 50 ML IV SCH (09:00)
--- NOTE | 2021-11-30 09:43 | Cardiology Progress Note ---
Date of Service November 30, 2021 Assessment & Plan (1) Acute on chronic systolic HF (heart failure): (2) Left leg cellulitis: (3) Anemia in chronic kidney disease: (4) Elevated troponin: (5) Pulmonary edema: Plan Patient admitted with worsening SOB, volume overload with evidence of pulm edema and LE edema consistent with acute on chronic HFrEF. Received IV diuretics since admission with improving respiratory status. He continues to have LE edema bilaterally. Continue IV diuretics today. Supplement potassium. Monitor renal function Mild hyponatremia noted today. Needs to follow 1500 ml fluid restriction. Echo in August revealed mildly reduced LVEF 45%. Troponin not significantly elevated (improved compared to August 2021), and likely due CHF exacerbation. Not indicative of ACS. Antibiotic therapy recommended for Left lower extremity cellulitis. Patient has outpatient real estate loan officer, Dr. Chavira. Continue all other outpatient cardiac meds including ASA, carvedilol, zetia, cretor. He has outpatient vascular team as well at [facility]. Patient is unsure why he takes Xarelto. No known history of DVT/PE or afib/flutter. It appears his vascular team refills anticoagulation. Will follow. Case to be discussed with Dr. Earl. Admission and Anticipated Discharge Date Admission Date: November 28, 2021 Supervising Physician Co-Signing Physician Notes I have seen and examined the patient. I reviewed the medical record and discussed the case with Ms. Ray. I agree with the plan as outlined. Subjective Patient reports he remains SOB this morning. Improved from admission but not yet at baseline. No chest pain. No dizziness. No orthopnea, PND. Ongoing LE edema n oted. Review of Systems Review of Systems: All systems reviewed & are unremarkable except as noted in HPI & below Physical Exam Constitutional: WD/WN, vitals as above average body habitus; no acute distress Respiratory: no labored breathing and no cough Auscultation: + diminished lung sounds; no crackles and no rales Cardiovascular: Rate/Rhythm: regular rate and regular rhythm Heart Sounds: + murmur (II/ systolic murmur) Vessels: no JVD Extremities: + edema (2+ B/L edema. Left leg wrapped) Gastrointestinal (Abdomen): normal bowel sounds, soft, nontender, no hepatosplenomegaly Skin: no rashes, warm and dry Neurologic: PERRL, EOMI, accommodation nl, no face palsy, no dysarthria Results & Data ([facility]) Vital Signs (Past 12 Hours) Vital Signs Temp Pulse Pulse Pulse Resp BP Pulse Ox 11/30/21 08:07 36.4 C L 67 16 121/65 93 11/30/21 04:26 36.6 C 14 128/79 99 11/29/21 23:00 59 L 11/29/21 22:28 36.5 C 62 18 118/69 97 O2 Del Method O2 Flow Rate 11/30/21 08:07 11/30/21 04:26 Nasal Cannula 3 11/29/21 23:00 11/29/21 22:28 Nasal Cannula 2.5 Laboratory Results CBC 11/30/21 Range/Units 06:16 WBC 9.01 (4.8-10.8) K/ul RBC 3.33 L (4.63-6.08) M/uL Hgb 9.3 L (14.0-18.0) g/dl Hct 29.4 L (40.1-51.0) % Plt Count 160 (130-400) K/uL Comprehensive Metabolic Panel 11/30/21 Range/Units 06:16 Sodium 131 L (136-145) mmol/L Potassium 3.3 L (3.5-5.1) mmol/L Chloride 90 L (98-107) mmol/L Carbon Dioxide 31 (21-32) mmol/L BUN 61 H (6-23) mg/dl Creatinine 1.93 H (0.6-1.4) mg/dl Glucose 118 H (70-99(Fasting)) mg/dl Calcium 8.3 L (8.5-10.1) mg/dl Intake and Output 11/29/21 11/30/21 11/30/21 22:59 06:59 14:59 Intake Total 296 / 596 240 / 596 70 / 70 Output Total 200 / 350 150 / 350 Balance 96 / 246 90 / 246 70 / 70 Intake: IV 60 / 120 70 / 70 cefTRIAXone SODIUM 2,000 mg In 60 / 60 70 / 70 Dextrose 5% 50 ml @ 100 mls/hr IV Q24H [facility] Rx#:[id number] Oral 236 / 476 240 / 476 Output: Urine 200 / 350 150 / 350 Other: Weight 77.7 kg 77.6 kg Weight Measurement Method Standing Scale Laboratory Results WBC 9.01 K/ul (4.8-10.8) 11/30/21 06:16 RBC 3.33 M/uL (4.63-6.08) L 11/30/21 06:16 Hgb 9.3 g/dl (14.0-18.0) L 11/30/21 06:16 Hct 29.4 % (40.1-51.0) L 11/30/21 06:16 MCV 88.3 fL (80.0-100.0) 11/30/21 06:16 MCH 27.9 pg (25.0-34.0) 11/30/21 06:16 MCHC 31.6 g/dL (32.0-36.0) L 11/30/21 06:16 RDW Std Deviation 52.5 fL (36.4-46.3) H 11/30/21 06:16 RDW Coeff of Dmitriy 16.2 % (11.5-14.5) H 11/30/21 06:16 Plt Count 160 K/uL (130-400) 11/30/21 06:16 MPV 11.6 fL (9.4-12.4) 11/30/21 06:16 Immature Gran % (Auto) 0.5 % 11/28/21 15:11 Neut % (Auto) 89.9 % 11/28/21 15:11 Lymph % (Auto) 2.3 % 11/28/21 15:11 [place] % (Auto) 7.1 % 11/28/21 15:11 Eos % (Auto) 0.1 % 11/28/21 15:11 Baso % (Auto) 0.1 % 11/28/21 15:11 Neut # (Auto) 13.07 K/uL (1.4-6.5) H 11/28/21 15:11 Lymph # (Auto) 0.34 K/uL (1.2-3.4) L 11/28/21 15:11 [place] # (Auto) 1.04 K/uL (0.24-0.82) H 11/28/21 15:11 Eos # (Auto) 0.02 K/uL (0-0.50) 11/28/21 15:11 Baso # (Auto) 0.02 K/uL (0-0.2) 11/28/21 15:11 Immature Gran # (Auto) 0.07 K/uL (0.00-0.02) H 11/28/21 15:11 PT 13.0 Seconds (9.0-12.0) H 11/28/21 15:11 INR 1.2 (0.9-1.1) H 11/28/21 15:11 APTT 29.7 Seconds (21.0-31.0) 11/28/21 15:11 PTT Ratio 1.1 11/28/21 15:11 Sodium 131 mmol/L (136-145) L 11/30/21 06:16 Potassium 3.3 mmol/L (3.5-5.1) L 11/30/21 06:16 Chloride 90 mmol/L (98-107) L 11/30/21 06:16 Carbon Dioxide 31 mmol/L (21-32) 11/30/21 06:16 Anion Gap 10 (3-11) 11/30/21 06:16 BUN 61 mg/dl (6-23) H 11/30/21 06:16 Creatinine 1.93 mg/dl (0.6-1.4) H 11/30/21 06:16 Est Cr Clr Drug Dosing 27.4 ml/min 11/30/21 06:16 Est GFR ( Amer) 35.8 ml/min 11/30/21 06:16 Est GFR (Non-Af Amer) 30.9 ml/min 11/30/21 06:16 BUN/Creatinine Ratio 31.6 (10-20) H 11/30/21 06:16 Glucose 118 mg/dl (70-99(Fasting)) H 11/30/21 06:16 Calcium 8.3 mg/dl (8.5-10.1) L 11/30/21 06:16 Phosphorus 4.2 mg/dl (2.5-4.9) 11/30/21 06:16 Magnesium 2.2 mg/dl (1.7-2.4) 11/30/21 06:16 Total Bilirubin 0.7 mg/dl (0.2-1.0) 11/28/21 15:11 AST 18 U/L (13-39) 11/28/21 15:11 ALT 33 U/L (7-52) 11/28/21 15:11 Alkaline Phosphatase 90 U/L (34-104) 11/28/21 15:11 Troponin I High Sens 41.1 pg/ml (0-20) H D 11/28/21 15:11 B-Natriuretic Peptide 2520 pg/ml (0-100) H 11/28/21 15:11 Total Protein 6.1 gm/dl (6.0-8.3) 11/28/21 15:11 Albumin 3.6 gm/dl (3.4-5.0) 11/28/21 15:11 Globulin 2.5 gm/dl (2.5-4.0) 11/28/21 15:11 Albumin/Globulin Ratio 1.4 (0.9-2) 11/28/21 15:11 Lipase 25 U/L (11-82) 11/28/21 15:11 Urine Color Yellow 11/29/21 19:10 Urine Appearance Clear (Clear) 11/29/21 19:10 Urine pH 5.0 (4.5-7.5) 11/29/21 19:10 Ur Specific [place] 1.010 (1.000-1.030) 11/29/21 19:10 Urine Protein Negative (Negative) 11/29/21 19:10 Urine Glucose (UA) Negative (Negative) 11/29/21 19:10 Urine Ketones Negative (Negative) 11/29/21 19:10 Urine Blood Negative (Negative) 11/29/21 19:10 Urine Nitrite Negative (Negative) 11/29/21 19:10 Urine Bilirubin Negative (Negative) 11/29/21 19:10 Urine Urobilinogen Negative (Negative) 11/29/21 19:10 Ur Leukocyte Esterase Trace (Negative) H 11/29/21 19:10 Urine WBC (Auto) 1-5 /hpf (0-5) 11/29/21 19:10 Urine RBC (Auto) 0-4 /hpf (0-4) 11/29/21 19:10 U Hyaline Cast (Auto) 0 /lpf (0-5) 11/29/21 19:10 U Epithel Cells (Auto) 5-10 /lpf (0-5) H 11/29/21 19:10 Urine Bacteria (Auto) Negative (Negative) 11/29/21 19:10 SARS-CoV-2 (PCR) NEGATIVE (Negative) 11/28/21 15:11 Influenza Type A (PCR) Negative (Neg) 11/28/21 15:11 Influenza Type B (PCR) Negative (Neg) 11/28/21 15:11 RSV (RT-PCR) Negative (Neg) 11/28/21 15:11 Bld Cult ID Panel PCR PCR Panel Negative (NotDetected) 11/28/21 15:11 Impressions Chest X-Ray 11/28/21 14:49 SINGLE VIEW CHEST CLINICAL HISTORY: Atypical chest pain. FINDINGS: An AP, portable, upright chest radiograph is compared to study dated 11/06/2021. Correlation is made with chest CT dated 08/28/2021. The examination is degraded by portable technique and apical lordotic positioning. The patient is status post midline sternotomy. The heart is enlarged noting atherosclerotic calcification of the thoracic ureter. There is pulmonary vascular congestion with mild interstitial edema. There are small pleural effusions with bibasilar consolidation. No pneumothorax is seen. The skeletal structures are osteopenic. The bony thorax is grossly intact. Calcific tendinopathy is noted in the left shoulder. IMPRESSION: 1. Cardiomegaly with evidence of congestive failure and pulmonary edema. 2. Small pleural effusions with bibasilar consolidation. ACT 112: Negative or not required by law. Electronically signed by: Paco Pardo M.D. 11/28/2021 3:02 PM Venous Doppler Study 11/28/21 14:51 ULTRASOUND LEFT LOWER EXTREMITY VENOUS CLINICAL HISTORY: Left lower extremity edema. COMPARISON STUDY: No priors. TECHNIQUE: Real-time, grayscale, and color Doppler sonography of the deep veins of the left lower extremity was performed from the inguinal crease to the calf. Compression and augmentation were utilized. FINDINGS: There is no sonographic evidence of deep venous thrombosis identified in the left lower extremity. The common femoral, superficial femoral, and popliteal veins are patent and normally compressible. The greater saphenous vein and the profunda femoris vein at the junction with the common femoral vein are clear. The visualized calf veins are patent. Soft tissue edema is noted in the left leg. IMPRESSION: There is no sonographic evidence of deep venous thrombosis identified in the left lower extremity. ACT 112: Negative or not required by law. Electronically signed by: Paco Pardo M.D. 11/28/2021 5:16 PM Diagnostic Findings Telemetry reviewed - NSR in the 60-70 bpm range. No concerning arrhythmias Medications Administered Current Inpatient Medications Acetaminophen (Acetaminophen 325 Mg Tab) 650 mg PO Q4H PRN PRN Reason: Pain or Fever Stop: 12/29/21 01:28 Ascorbic Acid (Ascorbic Acid 500 Mg Tab) 1,000 mg PO DAILY [facility] Stop: 12/29/21 08:59 Last Admin: 11/30/21 07:51 Dose: 1,000 mg Aspirin (Aspirin 81 Mg Ectab) 81 mg PO DAILY [facility] Stop: 12/29/21 08:59 Last Admin: 11/30/21 07:52 Dose: 81 mg Calamine/Phenol (Menthol-Zinc Oxide 360 Appln/120 Gm Tube) 1 appln EXT TID PRN PRN Reason: skin irritation Stop: 12/29/21 01:28 Carvedilol (Carvedilol 12.5 Mg Tab) 12.5 mg PO BID [facility] Stop: 12/29/21 01:28 Last Admin: 11/30/21 07:50 Dose: 12.5 mg Docusate Sodium (Docusate Sodium 100 Mg Cap) 100 mg PO BID [facility] Stop: 12/29/21 01:28 Last Admin: 11/30/21 07:51 Dose: 100 mg Ezetimibe (Ezetimibe 10 Mg Tablet) 10 mg PO DAILY [facility] Stop: 12/29/21 08:59 Last Admin: 11/30/21 07:52 Dose: 10 mg Folic Acid (Folic Acid 400 Mcg Tab) 400 mcg PO QAM [facility] Stop: 12/29/21 08:59 Last Admin: 11/30/21 07:51 Dose: 400 mcg Hydralazine HCl (Hydralazine Hcl 25 Mg Tab) 25 mg PO BID [facility] Stop: 12/29/21 01:28 Last Admin: 11/30/21 07:51 Dose: 25 mg Bumetanide 1 mg/ Syringe 4 mls @ 4 mls/min IV BID@0900,1700 [facility] Stop: 12/29/21 08:59 Last Admin: 11/30/21 07:50 Dose: 4 mls/min Ceftriaxone Sodium 2,000 mg/ (Dextrose) 70 mls @ 100 mls/hr IV Q24H [facility]; Protocol Stop: 12/14/21 08:59 Last Infusion: 11/30/21 08:39 Dose: Infused Magnesium Oxide (Magnesium Oxide 400 Mg Tab) 400 mg PO DAILY [facility] Stop: 12/29/21 08:59 Last Admin: 11/30/21 07:51 Dose: 400 mg Miscellaneous (Dutasteride: Order Awaiting Action) 1 each N/A QS [facility] Stop: 12/29/21 07:59 Last Admin: 11/30/21 07:52 Dose: Not Given Miscellaneous (Remove Nitro-Dur Patch) 1 each N/A DAILY@2100 [facility] Stop: 12/29/21 01:28 Last Admin: 11/29/21 20:47 Dose: 1 each Nitroglycerin (Nitroglycerin 0.4 Mg/Hr Patch) 1 patch TD QAM [facility] Stop: 12/29/21 08:59 Last Admin: 11/30/21 07:55 Dose: 1 patch Ondansetron HCl (Ondansetron Inj 2 Mg/Ml 2 Ml Vial) 4 mg IV Q6H PRN PRN Reason: Nausea Stop: 12/29/21 01:28 Polyethylene Glycol (Polyethylene (Miralax) 17 Gm Pack) 17 gm PO DAILY PRN PRN Reason: Constipation Stop: 12/29/21 01:28 Potassium Chloride (Potassium Chloride Crtab 20 Meq Tabcr) 40 meq PO DAILY [facility] Stop: 12/29/21 08:59 Last Admin: 11/30/21 07:51 Dose: 40 meq Potassium Chloride (Potassium Chloride Crtab 20 Meq Tabcr) 20 meq PO ONE ONE Stop: 11/30/21 14:01 Rivaroxaban (Rivaroxaban 2.5 Mg Tab) 2.5 mg PO BID [facility] Stop: 12/29/21 02:29 Last Admin: 11/30/21 07:51 Dose: 2.5 mg Rosuvastatin Calcium (Rosuvastatin Calcium 5 Mg Tab) 5 mg PO DAILY [facility] Stop: 12/29/21 08:59 Last Admin: 11/30/21 07:51 Dose: 5 mg Tamsulosin HCl (Tamsulosin Hcl 0.4 Mg Cap) 0.8 mg PO DAILY [facility] Stop: 12/29/21 08:59 Last Admin: 11/30/21 07:52 Dose: 0.8 mg Triamcinolone Acetonide (Triamcinolone Acet 0.1% Cr 15 Gm Tube) 1 appln TOP TID PRN PRN Reason: itching Stop: 12/29/21 01:28 Vitamin D (Cholecalciferol 1,000 Units 25 Mcg Tab) 2,000 units PO DAILY [facility] Stop: 12/29/21 08:59 Last Admin: 11/30/21 07:52 Dose: 2,000 units Zinc Sulfate (Zinc Sulfate 220 Mg Capsule) 220 mg PO DAILY [facility] Stop: 12/29/21 08:59 Last Admin: 11/30/21 07:51 Dose: 220 mg (1) Pulmonary edema Chronicity: acute Qualified Code(s): J81.0 - Acute pulmonary edema
[2021-11-30] MEDS ORDERED: POTASSIUM CHLORIDE CRTAB 20 MEQ TABCR PO ONE (14:00)
[2021-11-30] MEDS: PIPERACILLIN/TAZOBACTAM 3.375 GM in DEXTROSE 5% 100 ML IV SCH ×2 (15:49→23:17)
[2021-12-01] MEDS: PIPERACILLIN/TAZOBACTAM 3.375 GM in DEXTROSE 5% 100 ML IV SCH ×3 (06:47→23:58)
[2021-12-01 07:03] LABS: Hematocrit (blood only) 28.8 % (40.1-51.0); Hemoglobin 9.1 g/dl (14.0-18.0); Mean Corpuscular Hemoglobin 27.9 pg (25.0-34.0); Mean Corpuscular Hgb Conc 31.6 g/dL (32.0-36.0); Mean Corpuscular Volume 88.3 fL (80.0-100.0); Platelet Count 173 K/uL (130-400); RDW Coefficient of Variation 15.9 % (11.5-14.5); RDW Standard Deviation 51.8 fL (36.4-46.3); Red Blood Count 3.26 M/uL (4.63-6.08); White Blood Count 7.86 K/ul (4.8-10.8)
[2021-12-01 07:30] LABS: BUN Creatinine Ratio 30.7 (10-20); Calcium 8.5 mg/dl (8.5-10.1); Creatinine Clr Calc Pharmacy 25.8 ml/min; Est GFR (African American) 33.2 ml/min; Est GFR (Non-African American) 28.7 ml/min; Magnesium 2.2 mg/dl (1.7-2.4); Phosphorus 4.2 mg/dl (2.5-4.9); Potassium 3.3 mmol/L (3.5-5.1)
--- NOTE | 2021-12-01 07:55 | Hospitalist Progress Note ---
Date of Service December 01, 2021 Assessment & Plan (1) Pulmonary edema: (2) Acute decompensated heart failure: Plan: This is an 86yo M with a PMH of combined systolic and diastolic heart failure, CKD 3 (baseline Cr 1.8-2), history of kidney stones, history of carotid stenosis s/p MAYELA, CAD (s/p CABG in 1995), HTN, PVD and other medical problems as below who presents with shortness of breath and found to be in decompensated heart failure. Pt also found bacteremic. Progressive SOB, developed PND overnight Saturating 100% on 2L NC on admission BNP 2,520, HS troponin 41 CXR with cardiomegaly with evidence of congestive failure and pulmonary edema. Small pleural effusions with bibasilar consolidation 2D echo from August 2021 with EF 45 to 50%, moderate size anterior and lateral wall motion abnormality with hypokinesis, aortic valve sclerosis without stenosis, grade 3 diastolic dysfunction Low sodium diet, monitor daily weights Given Bumex 1mg IV in ED. Continue Bumex 1mg IV BID - 12/01 - will also give metolazone. Current Echo: There is no evidence of mass or vegetation. This does not rule out endocarditis. LV is normal in size. There is anterior wall akinesis. There is lateral wall akinesis. EF 40 to 45%. RV systolic function is normal. LA is severely dilated. RA size is normal. Aortic valve sclerosis moderate, without significant aortic valvular stenosis. Mild aortic regurg. There is moderate mitral regurg. There is moderate to severe tricuspid regurg. The estimated pulmonary artery systolic pressure is 50 mmHg. Cardiology consulted Continue currently with his cardiac medications and diuresis. Patient has outpatient supervisor histology, Dr. Chavira. Continue all other outpatient cardiac meds including ASA, carvedilol, zetia, crestor. He has outpatient vascular team as well at [facility]. Reviewed records from patient's supervisor histology, patient on Xarelto 2.5 mg twice daily in addition to aspirin 81 mg daily given the results of Compass trial. (3) Left leg cellulitis: Plan: Persistent swelling over the past year but developed overlying redness and tenderness 2 days ago Afebrile, leukocytosis of 14 K Continued Rocephin, switched to zosyn Bacteremia Gram-negative bacilli Repeat blood culture also positive , as above Switched Rocephin to zosyn UA negat. ID consult placed (4) Elevated troponin: Plan: Most likely demand ischemia in setting of CHF, CKD. No chest pain (5) Anemia in chronic kidney disease: Plan: Received IV iron during previous admission. Hgb 9.7, at baseline. Continue iron supplement BID (6) HTN (hypertension): Plan: Continue carvedilol and hydralazine. Nifedipine and losartan discontinued on previous admission (7) PAD (peripheral artery disease): Plan: Continue aspirin, statin (8) Chronic kidney disease: Plan: CKD III with baseline Cr 1.8-2. Currently at baseline. Monitor with daily BMP (9) BPH w urinary obs/LUTS: Plan: Continue Flomax. Bladder scan as needed DVT Ppx: Xarelto Code status: FULL PCP: Dr. Anguiano Dispo: Admitted to PCU Admission and Anticipated Discharge Date Admission Date: November 28, 2021 Subjective Patient seen in follow-up of CHF, Pt also found bacteremic Currently sitting up in chair in [facility] Reports he has difficulty sleeping/breathing when lying flat He feels much more comfortable when he is sitting up in chair Reports feeling better Denies any fevers, chills, chest pain, shortness of breath, palpitations, dizziness Blood cultures positive for gram-negative bacilli switched to zosyn, ID consult placed Review of Systems Review of Systems: All systems reviewed & are unremarkable except as noted in Subjective Physical Exam Physical Exam: General: elderly frail M in NAD, breathing comfortably on RA, sitting up in chair Lungs: Good air entry b/l but b/l lower lobe mild crackles Cardiac: Normal S1/S2, no murmur Abd: ND, soft and NT, + bowel sounds MSK: b/l leg pitting edema --- L leg: erythematous and warmth to touch, dry clean bandage in place Psych: AAOx3, normal affect Results & Data Results & Data ([facility]) Vital Signs (Past 12 Hours) Vital Signs Temp Pulse Resp BP Pulse Ox O2 Del Method O2 Flow Rate 12/01/21 03:11 36.7 C 53 L 18 128/69 99 Nasal Cannula 2.5 11/30/21 23:09 36.6 C 56 L 18 116/52 L 96 Room Air Laboratory Results 12/01/21 12/01/21 Range/Units 06:18 06:18 WBC 7.86 (4.8-10.8) K/ul RBC 3.26 L (4.63-6.08) M/uL Hgb 9.1 L (14.0-18.0) g/dl Hct 28.8 L (40.1-51.0) % MCV 88.3 (80.0-100.0) fL MCH 27.9 (25.0-34.0) pg MCHC 31.6 L (32.0-36.0) g/dL RDW Std Deviation 51.8 H (36.4-46.3) fL RDW Coeff of Dmitriy 15.9 H (11.5-14.5) % Plt Count 173 (130-400) K/uL MPV 12.0 (9.4-12.4) fL Sodium 133 L (136-145) mmol/L Potassium 3.3 L (3.5-5.1) mmol/L Chloride 90 L (98-107) mmol/L Carbon Dioxide 32 (21-32) mmol/L Anion Gap 11 (3-11) BUN 63 H (6-23) mg/dl Creatinine 2.05 H (0.6-1.4) mg/dl Est Cr Clr Drug Dosing 25.8 ml/min Est GFR ( Amer) 33.2 ml/min Est GFR (Non-Af Amer) 28.7 ml/min BUN/Creatinine Ratio 30.7 H (10-20) Glucose 132 H (70-99(Fasting)) mg/dl Calcium 8.5 (8.5-10.1) mg/dl Phosphorus 4.2 (2.5-4.9) mg/dl Magnesium 2.2 (1.7-2.4) mg/dl Medications Administered Current Inpatient Medications Acetaminophen (Acetaminophen 325 Mg Tab) 650 mg PO Q4H PRN PRN Reason: Pain or Fever Stop: 12/29/21 01:28 Ascorbic Acid (Ascorbic Acid 500 Mg Tab) 1,000 mg PO DAILY [facility] Stop: 12/29/21 08:59 Last Admin: 11/30/21 07:51 Dose: 1,000 mg Aspirin (Aspirin 81 Mg Ectab) 81 mg PO DAILY [facility] Stop: 12/29/21 08:59 Last Admin: 11/30/21 07:52 Dose: 81 mg Calamine/Phenol (Menthol-Zinc Oxide 360 Appln/120 Gm Tube) 1 appln EXT TID PRN PRN Reason: skin irritation Stop: 12/29/21 01:28 Carvedilol (Carvedilol 12.5 Mg Tab) 12.5 mg PO BID [facility] Stop: 12/29/21 01:28 Last Admin: 11/30/21 20:06 Dose: 12.5 mg Docusate Sodium (Docusate Sodium 100 Mg Cap) 100 mg PO BID [facility] Stop: 12/29/21 01:28 Last Admin: 11/30/21 20:06 Dose: 100 mg Ezetimibe (Ezetimibe 10 Mg Tablet) 10 mg PO DAILY [facility] Stop: 12/29/21 08:59 Last Admin: 11/30/21 07:52 Dose: 10 mg Folic Acid (Folic Acid 400 Mcg Tab) 400 mcg PO QAM [facility] Stop: 12/29/21 08:59 Last Admin: 11/30/21 07:51 Dose: 400 mcg Hydralazine HCl (Hydralazine Hcl 25 Mg Tab) 25 mg PO BID [facility] Stop: 12/29/21 01:28 Last Admin: 11/30/21 20:06 Dose: 25 mg Bumetanide 1 mg/ Syringe 4 mls @ 4 mls/min IV BID@0900,1700 [facility] Stop: 12/29/21 08:59 Last Admin: 11/30/21 17:04 Dose: 4 mls/min Piperacillin Sod/Tazobactam (Sod 3.375 gm/ Dextrose) 115 mls @ 28.75 mls/hr IV Q8H [facility]; Protocol Stop: 12/14/21 14:59 Last Admin: 12/01/21 06:47 Dose: 28.8 mls/hr Magnesium Oxide (Magnesium Oxide 400 Mg Tab) 400 mg PO DAILY [facility] Stop: 12/29/21 08:59 Last Admin: 11/30/21 07:51 Dose: 400 mg Miscellaneous (Dutasteride: Order Awaiting Action) 1 each N/A QS [facility] Stop: 12/29/21 07:59 Last Admin: 11/30/21 23:25 Dose: Not Given Miscellaneous (Remove Nitro-Dur Patch) 1 each N/A DAILY@2100 [facility] Stop: 12/29/21 01:28 Last Admin: 11/30/21 20:06 Dose: 1 each Nitroglycerin (Nitroglycerin 0.4 Mg/Hr Patch) 1 patch TD QAM [facility] Stop: 12/29/21 08:59 Last Admin: 11/30/21 07:55 Dose: 1 patch Ondansetron HCl (Ondansetron Inj 2 Mg/Ml 2 Ml Vial) 4 mg IV Q6H PRN PRN Reason: Nausea Stop: 12/29/21 01:28 Polyethylene Glycol (Polyethylene (Miralax) 17 Gm Pack) 17 gm PO DAILY PRN PRN Reason: Constipation Stop: 12/29/21 01:28 Potassium Chloride (Potassium Chloride Crtab 20 Meq Tabcr) 40 meq PO DAILY [facility] Stop: 12/29/21 08:59 Last Admin: 11/30/21 07:51 Dose: 40 meq Rivaroxaban (Rivaroxaban 2.5 Mg Tab) 2.5 mg PO BID [facility] Stop: 12/29/21 02:29 Last Admin: 11/30/21 20:06 Dose: 2.5 mg Rosuvastatin Calcium (Rosuvastatin Calcium 5 Mg Tab) 5 mg PO DAILY [facility] Stop: 12/29/21 08:59 Last Admin: 11/30/21 07:51 Dose: 5 mg Tamsulosin HCl (Tamsulosin Hcl 0.4 Mg Cap) 0.8 mg PO DAILY [facility] Stop: 12/29/21 08:59 Last Admin: 11/30/21 07:52 Dose: 0.8 mg Triamcinolone Acetonide (Triamcinolone Acet 0.1% Cr 15 Gm Tube) 1 appln TOP TID PRN PRN Reason: itching Stop: 12/29/21 01:28 Vitamin D (Cholecalciferol 1,000 Units 25 Mcg Tab) 2,000 units PO DAILY [facility] Stop: 12/29/21 08:59 Last Admin: 11/30/21 07:52 Dose: 2,000 units Zinc Sulfate (Zinc Sulfate 220 Mg Capsule) 220 mg PO DAILY [facility] Stop: 12/29/21 08:59 Last Admin: 11/30/21 07:51 Dose: 220 mg (1) Chronic kidney disease Chronic kidney disease stage: unspecified stage Qualified Code(s): N18.9 - Chronic kidney disease, unspecified (2) Pulmonary edema Chronicity: acute Qualified Code(s): J81.0 - Acute pulmonary edema
[2021-12-01] MEDS: BUMETANIDE 1 MG in SYRINGE 0 ML IV SCH ×2 (08:27→17:01)
[2021-12-01] MEDS: hydrALAZINE HCL 25 MG TAB PO SCH ×2 (08:28→20:18)
[2021-12-01] MEDS: DOCUSATE SODIUM 100 MG CAP PO SCH ×2 (08:28→20:16)
[2021-12-01] MEDS: ASCORBIC ACID 500 MG TAB PO SCH (08:28)
[2021-12-01] MEDS: ASPIRIN 81 MG ECTAB PO SCH (08:28)
[2021-12-01] MEDS: carvediloL 12.5 MG TAB PO SCH ×2 (08:28→20:17)
[2021-12-01] MEDS: FOLIC ACID 400 MCG TAB PO SCH (08:28)
[2021-12-01] MEDS: TAMSULOSIN HCL 0.4 MG CAP PO SCH (08:28)
[2021-12-01] MEDS: RIVAROXABAN 2.5 MG TAB PO SCH ×2 (08:28→20:18)
[2021-12-01] MEDS: ZINC SULFATE 220 MG CAPSULE PO SCH (08:28)
[2021-12-01] MEDS: EZETIMIBE 10 MG TABLET PO SCH (08:28)
[2021-12-01] MEDS: CHOLECALCIFEROL 1,000 UNITS 25 MCG TAB PO SCH (08:28)
[2021-12-01] MEDS: MAGNESIUM OXIDE 400 MG TAB PO SCH (08:29)
[2021-12-01] MEDS: NITROGLYCERIN 0.4 MG/HR PATCH TD SCH (08:29)
[2021-12-01] MEDS: ROSUVASTATIN CALCIUM 5 MG TAB PO SCH (08:29)
[2021-12-01] MEDS: POTASSIUM CHLORIDE CRTAB 20 MEQ TABCR PO SCH ×2 (08:29→20:16)
--- NOTE | 2021-12-01 10:01 | Cardiology Progress Note ---
Date of Service December 01, 2021 Assessment & Plan (1) Acute on chronic systolic HF (heart failure): (2) Left leg cellulitis: (3) Anemia in chronic kidney disease: (4) Elevated troponin: (5) Pulmonary edema: (6) Bacteremia: Plan Patient admitted with worsening SOB, volume overload with evidence of pulm edema and LE edema consistent with acute on chronic HFrEF. Received IV diuretics since admission with improving respiratory status. He continues to have LE edema bilaterally. Continue IV diuretics today. Supplement potassium. Monitor renal function. Mild rise in creatinine. will hold in AM until evaluation. Mild hyponatremia, stable. Needs to follow 1500 ml fluid restriction. Echo in August revealed mildly reduced LVEF 45%. Troponin not significantly elevated (improved compared to August 2021), and likely due CHF exacerbation. Not indicative of ACS. Antibiotic therapy recommended for Left lower extremity cellulitis. He now has persistent bacteremia with gram negative Bacilli Echo ordered and results pending. ID consulted Continue IV antibiotics. Patient has outpatient wall taper helper, Dr. Chavira. Continue all other outpatient cardiac meds including ASA, carvedilol, zetia, cretor. He has outpatient vascular team as well at [facility]. Patient is unsure why he takes Xarelto. No known history of DVT/PE or afib/flutter. It appears his vascular team refills anticoagulation. Will follow. Case to be discussed with Dr. Earl. Admission and Anticipated Discharge Date Admission Date: November 28, 2021 Supervising Physician Co-Signing Physician Notes I have reviewed the medical record and discussed the case with Ms. Ray. I have seen and examined the patient. I also reviewed the echocardiogram today. It is very difficult in an elderly patient to completely exclude endocarditis by ultrasound. The valve is a usually old and sclerotic and therefore vegetations cannot be completely excluded however, I did not see anything on the echo that was of concern. Subjective Patient resting in chair comfortably. Off supplemental O2. Reports his SOB has i mproved today and feels at baseline. No fever, cough, chills. ongoing LE edema noted. + blood cultures also noted, persistent. ID consulted. Echo ordered Review of Systems Review of Systems: All systems reviewed & are unremarkable except as noted in HPI & below Physical Exam 2 Constitutional: WD/WN, vitals as above average body habitus; no acute distress Respiratory: no labored breathing and no cough Auscultation: + diminished lung sounds; no crackles and no rales Cardiovascular: Rate/Rhythm: regular rate and regular rhythm Heart Sounds: + murmur (II/ systolic murmur) Vessels: no JVD Extremities: + edema (2+ B/L edema. Left leg wrapped) Gastrointestinal (Abdomen): normal bowel sounds, soft, nontender, no hepatosplenomegaly Skin: no rashes, warm and dry Neurologic: PERRL, EOMI, accommodation nl, no face palsy, no dysarthria Results & Data ([facility]) Vital Signs (Past 12 Hours) Vital Signs Temp Pulse Resp BP BP Pulse Ox O2 Del Method 12/01/21 08:00 Room Air 12/01/21 07:53 36.5 C 93 H 20 114/60 97 Room Air 12/01/21 03:11 36.7 C 53 L 18 128/69 99 Nasal Cannula 11/30/21 23:09 36.6 C 56 L 18 116/52 L 96 Room Air O2 Flow Rate 12/01/21 08:00 12/01/21 07:53 12/01/21 03:11 2.5 11/30/21 23:09 Laboratory Results CBC 12/01/21 Range/Units 06:18 WBC 7.86 (4.8-10.8) K/ul RBC 3.26 L (4.63-6.08) M/uL Hgb 9.1 L (14.0-18.0) g/dl Hct 28.8 L (40.1-51.0) % Plt Count 173 (130-400) K/uL Comprehensive Metabolic Panel 12/01/21 Range/Units 06:18 Sodium 133 L (136-145) mmol/L Potassium 3.3 L (3.5-5.1) mmol/L Chloride 90 L (98-107) mmol/L Carbon Dioxide 32 (21-32) mmol/L BUN 63 H (6-23) mg/dl Creatinine 2.05 H (0.6-1.4) mg/dl Glucose 132 H (70-99(Fasting)) mg/dl Calcium 8.5 (8.5-10.1) mg/dl Intake and Output 11/30/21 12/01/21 12/01/21 22:59 06:59 14:59 Intake Total 355 / 740 115 / 740 Output Total 600 / 1075 300 / 1075 Balance -245 / -335 -185 / -335 Intake: IV 115 / 300 115 / 300 Piperacillin/Tazobactam 3.375 115 / 230 115 / 230 gm In Dextrose 5% 100 ml @ 28. 75 mls/hr IV Q8H [facility] Rx#: [id number] Oral 240 / 440 Output: Urine 600 / 1075 300 / 1075 Other: Other Intake Source sips Weight 77.7 kg Weight Measurement Method Built in [facility] Diagnostic Findings Telemetry reviewed: NSR int he 70's. No concerning arrhythmias Echo pending Blood cultures - Gram negate bacilli Medications Administered Current Inpatient Medications Acetaminophen (Acetaminophen 325 Mg Tab) 650 mg PO Q4H PRN PRN Reason: Pain or Fever Stop: 12/29/21 01:28 Ascorbic Acid (Ascorbic Acid 500 Mg Tab) 1,000 mg PO DAILY [facility] Stop: 12/29/21 08:59 Last Admin: 12/01/21 08:28 Dose: 1,000 mg Aspirin (Aspirin 81 Mg Ectab) 81 mg PO DAILY [facility] Stop: 12/29/21 08:59 Last Admin: 12/01/21 08:28 Dose: 81 mg Calamine/Phenol (Menthol-Zinc Oxide 360 Appln/120 Gm Tube) 1 appln EXT TID PRN PRN Reason: skin irritation Stop: 12/29/21 01:28 Carvedilol (Carvedilol 12.5 Mg Tab) 12.5 mg PO BID [facility] Stop: 12/29/21 01:28 Last Admin: 12/01/21 08:28 Dose: 12.5 mg Docusate Sodium (Docusate Sodium 100 Mg Cap) 100 mg PO BID [facility] Stop: 12/29/21 01:28 Last Admin: 12/01/21 08:28 Dose: 100 mg Ezetimibe (Ezetimibe 10 Mg Tablet) 10 mg PO DAILY [facility] Stop: 12/29/21 08:59 Last Admin: 12/01/21 08:28 Dose: 10 mg Folic Acid (Folic Acid 400 Mcg Tab) 400 mcg PO QAM [facility] Stop: 12/29/21 08:59 Last Admin: 12/01/21 08:28 Dose: 400 mcg Hydralazine HCl (Hydralazine Hcl 25 Mg Tab) 25 mg PO BID [facility] Stop: 12/29/21 01:28 Last Admin: 12/01/21 08:28 Dose: 25 mg Bumetanide 1 mg/ Syringe 4 mls @ 4 mls/min IV BID@0900,1700 [facility] Stop: 12/29/21 08:59 Last Admin: 12/01/21 08:27 Dose: 4 mls/min Piperacillin Sod/Tazobactam (Sod 3.375 gm/ Dextrose) 115 mls @ 28.75 mls/hr IV Q8H [facility]; Protocol Stop: 12/14/21 14:59 Last Admin: 12/01/21 06:47 Dose: 28.8 mls/hr Magnesium Oxide (Magnesium Oxide 400 Mg Tab) 400 mg PO DAILY [facility] Stop: 12/29/21 08:59 Last Admin: 12/01/21 08:29 Dose: 400 mg Miscellaneous (Dutasteride: Order Awaiting Action) 1 each N/A QS [facility] Stop: 12/29/21 07:59 Last Admin: 12/01/21 08:29 Dose: Not Given Miscellaneous (Remove Nitro-Dur Patch) 1 each N/A DAILY@2100 [facility] Stop: 12/29/21 01:28 Last Admin: 11/30/21 20:06 Dose: 1 each Nitroglycerin (Nitroglycerin 0.4 Mg/Hr Patch) 1 patch TD QAM [facility] Stop: 12/29/21 08:59 Last Admin: 12/01/21 08:29 Dose: 1 patch Ondansetron HCl (Ondansetron Inj 2 Mg/Ml 2 Ml Vial) 4 mg IV Q6H PRN PRN Reason: Nausea Stop: 12/29/21 01:28 Polyethylene Glycol (Polyethylene (Miralax) 17 Gm Pack) 17 gm PO DAILY PRN PRN Reason: Constipation Stop: 12/29/21 01:28 Potassium Chloride (Potassium Chloride Crtab 20 Meq Tabcr) 40 meq PO BID [facility] Stop: 12/31/21 08:59 Last Admin: 12/01/21 08:29 Dose: 40 meq Rivaroxaban (Rivaroxaban 2.5 Mg Tab) 2.5 mg PO BID [facility] Stop: 12/29/21 02:29 Last Admin: 12/01/21 08:28 Dose: 2.5 mg Rosuvastatin Calcium (Rosuvastatin Calcium 5 Mg Tab) 5 mg PO DAILY [facility] Stop: 12/29/21 08:59 Last Admin: 12/01/21 08:29 Dose: 5 mg Tamsulosin HCl (Tamsulosin Hcl 0.4 Mg Cap) 0.8 mg PO DAILY [facility] Stop: 12/29/21 08:59 Last Admin: 12/01/21 08:28 Dose: 0.8 mg Triamcinolone Acetonide (Triamcinolone Acet 0.1% Cr 15 Gm Tube) 1 appln TOP TID PRN PRN Reason: itching Stop: 12/29/21 01:28 Vitamin D (Cholecalciferol 1,000 Units 25 Mcg Tab) 2,000 units PO DAILY [facility] Stop: 12/29/21 08:59 Last Admin: 12/01/21 08:28 Dose: 2,000 units Zinc Sulfate (Zinc Sulfate 220 Mg Capsule) 220 mg PO DAILY [facility] Stop: 12/29/21 08:59 Last Admin: 12/01/21 08:28 Dose: 220 mg (1) Pulmonary edema Chronicity: acute Qualified Code(s): J81.0 - Acute pulmonary edema
--- NOTE | 2021-12-01 10:33 | XRay Report ---
SINGLE VIEW CHEST CLINICAL HISTORY: Follow-up CHF. FINDINGS: An AP, portable, upright chest radiograph is compared to study dated 11/28/2021. Correlation is made with chest CT dated 08/28/2021. The patient is status post midline sternotomy. The heart is enl arged noting atherosclerotic calcification of the thoracic aorta. Pulmonary vascular congestion has i mproved from previous. There are small pleural effusions with bibasilar consolidation. Fluid is noted along the minor fissure. No pneumothorax is seen. The skeletal structures are osteopenic. The bony t horax is grossly intact. Calcific tendinopathy is noted in the left shoulder. IMPRESSION: 1. Cardiomegaly. Pulmonary vascular congestion has improved from previous. 2. Small pleural effusions with bibasilar consolidation. ACT 112: Negative or not required by law. Electronically signed by: Paco Pardo M.D. 12/01/2021 10:32 AM
[2021-12-01] MEDS ORDERED: metOLazone 5 MG TABLET PO ONE (16:30)
[2021-12-01] MEDS: diphenhydrAMINE Capsule 25 MG CAP PO PRN (19:30)
[2021-12-02 05:57] LABS: Hematocrit (blood only) 28.3 % (40.1-51.0); Mean Corpuscular Hemoglobin 28.2 pg (25.0-34.0); Mean Corpuscular Hgb Conc 31.8 g/dL (32.0-36.0); Mean Corpuscular Volume 88.7 fL (80.0-100.0); Mean Platelet Volume 11.6 fL (9.4-12.4); Platelet Count 187 K/uL (130-400); RDW Coefficient of Variation 15.9 % (11.5-14.5); RDW Standard Deviation 51.8 fL (36.4-46.3); Red Blood Count 3.19 M/uL (4.63-6.08); White Blood Count 6.06 K/ul (4.8-10.8)
[2021-12-02] MEDS: PIPERACILLIN/TAZOBACTAM 3.375 GM in DEXTROSE 5% 100 ML IV SCH (06:30)
[2021-12-02 06:34] LABS: BUN Creatinine Ratio 29.5 (10-20); Calcium 8.5 mg/dl (8.5-10.1); Creatinine Clr Calc Pharmacy 25.5 ml/min; Est GFR (African American) 32.9 ml/min; Est GFR (Non-African American) 28.4 ml/min; Magnesium 2.1 mg/dl (1.7-2.4); Phosphorus 3.7 mg/dl (2.5-4.9)
[2021-12-02] MEDS: diphenhydrAMINE Capsule 25 MG CAP PO PRN (06:36)
[2021-12-02] MEDS: hydrALAZINE HCL 25 MG TAB PO SCH ×2 (08:30→20:28)
[2021-12-02] MEDS: BUMETANIDE 1 MG in SYRINGE 0 ML IV SCH (08:30)
[2021-12-02] MEDS: RIVAROXABAN 2.5 MG TAB PO SCH ×2 (08:31→20:28)
[2021-12-02] MEDS: TAMSULOSIN HCL 0.4 MG CAP PO SCH (08:31)
[2021-12-02] MEDS: MAGNESIUM OXIDE 400 MG TAB PO SCH (08:31)
[2021-12-02] MEDS: FOLIC ACID 400 MCG TAB PO SCH (08:31)
[2021-12-02] MEDS: DOCUSATE SODIUM 100 MG CAP PO SCH ×2 (08:32→20:29)
[2021-12-02] MEDS: ROSUVASTATIN CALCIUM 5 MG TAB PO SCH (08:32)
[2021-12-02] MEDS: ZINC SULFATE 220 MG CAPSULE PO SCH (08:32)
[2021-12-02] MEDS: ASPIRIN 81 MG ECTAB PO SCH (08:32)
[2021-12-02] MEDS: carvediloL 12.5 MG TAB PO SCH ×2 (08:32→20:29)
[2021-12-02] MEDS: EZETIMIBE 10 MG TABLET PO SCH (08:33)
[2021-12-02] MEDS: NITROGLYCERIN 0.4 MG/HR PATCH TD SCH (08:33)
[2021-12-02] MEDS: ASCORBIC ACID 500 MG TAB PO SCH (08:33)
[2021-12-02] MEDS: CHOLECALCIFEROL 1,000 UNITS 25 MCG TAB PO SCH (08:34)
--- NOTE | 2021-12-02 08:45 | Hospitalist Progress Note ---
Date of Service December 02, 2021 Assessment & Plan (1) Pulmonary edema: (2) Acute decompensated heart failure: Plan: This is an 86yo M with a PMH of combined systolic and diastolic heart failure, CKD 3 (baseline Cr 1.8-2), history of kidney stones, history of carotid stenosis s/p MAYELA, CAD (s/p CABG in 1995), HTN, PVD and other medical problems as below who presents with shortness of breath and found to be in decompensated heart failure. Pt also found bacteremic. Progressive SOB, developed PND overnight Saturating 100% on 2L NC on admission BNP 2,520, HS troponin 41 CXR with cardiomegaly with evidence of congestive failure and pulmonary edema. Small pleural effusions with bibasilar consolidation 2D echo from August 2021 with EF 45 to 50%, moderate size anterior and lateral wall motion abnormality with hypokinesis, aortic valve sclerosis without stenosis, grade 3 diastolic dysfunction Low sodium diet, monitor daily weights Given Bumex 1mg IV in ED. Continue Bumex 1mg IV BID - 12/01 - will also give metolazone. Current Echo: There is no evidence of mass or vegetation. This does not rule out endocarditis. LV is normal in size. There is anterior wall akinesis. There is lateral wall akinesis. EF 40 to 45%. RV systolic function is normal. LA is severely dilated. RA size is normal. Aortic valve sclerosis moderate, without significant aortic valvular stenosis. Mild aortic regurg. There is moderate mitral regurg. There is moderate to severe tricuspid regurg. The estimated pulmonary artery systolic pressure is 50 mmHg. Cardiology consulted Continue currently with his cardiac medications and diuresis. Patient has outpatient engineering technologist, Dr. Chavira. Continue all other outpatient cardiac meds including ASA, carvedilol, zetia, crestor. He has outpatient vascular team as well at [facility]. Reviewed records from patient's engineering technologist, patient on Xarelto 2.5 mg twice daily in addition to aspirin 81 mg daily given the results of Compass trial. 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 - isolated on 11/28 and 11/29 blood cultx Blood cultx from 11/30 - so far negative Switched Rocephin to zosyn when blood cultx became positive 12/02 - gave x1 dose of levaquin after sp. identified on blood cultx - however pt has prolonged QT on EKG from 11/28 and 11/29-> switch to meropenem for now, await ID consult UA negat. ID consult placed (4) Elevated troponin: Plan: Most likely demand ischemia in setting of CHF, CKD. No chest pain (5) Anemia in chronic kidney disease: Plan: Received IV iron during previous admission. Hgb 9.7, at baseline. Continue iron supplement BID (6) HTN (hypertension): Plan: Continue carvedilol and hydralazine. Nifedipine and losartan discontinued on previous admission (7) PAD (peripheral artery disease): Plan: Continue aspirin, statin (8) Chronic kidney disease: Plan: CKD III with baseline Cr 1.8-2. Currently at baseline. Monitor with daily BMP (9) BPH w urinary obs/LUTS: Plan: Continue Flomax. Bladder scan as needed DVT Ppx: Xarelto Code status: FULL PCP: Dr. Anguiano Dispo: Admitted to PCU -> transfer to [facility] Admission and Anticipated Discharge Date Admission Date: November 28, 2021 Subjective Patient seen in follow-up of CHF, Pt also found bacteremic Currently sitting up in chair in NAD Reports he has difficulty sleeping/breathing when lying flat He feels much more comfortable when he is sitting up in chair Reports feeling better Denies any fevers, chills, chest pain, shortness of breath, palpitations, dizziness Blood cultures positive for gram-negative bacilli switched to zosyn, ID consult placed Update: after being seen pt complained of shortness of breath, but was saturating in 90s on RA, pt evaluated again, CXR obtained Review of Systems Review of Systems: All systems reviewed & are unremarkable except as noted in Subjective Physical Exam Physical Exam: General: elderly frail M in NAD, breathing comfortably on RA, sitting up in chair Lungs: Good air entry b/l but b/l lower lobe mild crackles Cardiac: Normal S1/S2, no murmur Abd: ND, soft and NT, + bowel sounds MSK: b/l leg pitting edema, L>R --- L leg: erythematous and warmth to touch, dry clean bandage in place Psych: AAOx3, normal affect Results & Data Results & Data ([facility]) Vital Signs (Past 12 Hours) Vital Signs Temp Pulse Resp BP BP Pulse Ox O2 Del Method 12/02/21 07:49 36.5 C 59 L 17 130/56 L 96 Room Air 12/02/21 02:28 36.5 C 61 18 124/79 93 Room Air 12/01/21 23:13 36.5 C 61 16 127/73 95 Room Air Laboratory Results 12/02/21 12/02/21 Range/Units 05:25 05:25 WBC 6.06 (4.8-10.8) K/ul RBC 3.19 L (4.63-6.08) M/uL Hgb 9.0 L (14.0-18.0) g/dl Hct 28.3 L (40.1-51.0) % MCV 88.7 (80.0-100.0) fL MCH 28.2 (25.0-34.0) pg MCHC 31.8 L (32.0-36.0) g/dL RDW Std Deviation 51.8 H (36.4-46.3) fL RDW Coeff of Dmitriy 15.9 H (11.5-14.5) % Plt Count 187 (130-400) K/uL MPV 11.6 (9.4-12.4) fL Sodium 133 L (136-145) mmol/L Potassium 3.0 L (3.5-5.1) mmol/L Chloride 90 L (98-107) mmol/L Carbon Dioxide 33 H (21-32) mmol/L Anion Gap 10 (3-11) BUN 61 H (6-23) mg/dl Creatinine 2.07 H (0.6-1.4) mg/dl Est Cr Clr Drug Dosing 25.5 ml/min Est GFR ( Amer) 32.9 ml/min Est GFR (Non-Af Amer) 28.4 ml/min BUN/Creatinine Ratio 29.5 H (10-20) Glucose 103 H (70-99(Fasting)) mg/dl Calcium 8.5 (8.5-10.1) mg/dl Phosphorus 3.7 (2.5-4.9) mg/dl Magnesium 2.1 (1.7-2.4) mg/dl Medications Administered Current Inpatient Medications Acetaminophen (Acetaminophen 325 Mg Tab) 650 mg PO Q4H PRN PRN Reason: Pain or Fever Stop: 12/29/21 01:28 Ascorbic Acid (Ascorbic Acid 500 Mg Tab) 1,000 mg PO DAILY [facility] Stop: 12/29/21 08:59 Last Admin: 12/02/21 08:33 Dose: 1,000 mg Aspirin (Aspirin 81 Mg Ectab) 81 mg PO DAILY [facility]EN Stop: 12/29/21 08:59 Last Admin: 12/02/21 08:32 Dose: 81 mg Calamine/Phenol (Menthol-Zinc Oxide 360 Appln/120 Gm Tube) 1 appln EXT TID PRN PRN Reason: skin irritation Stop: 12/29/21 01:28 Carvedilol (Carvedilol 12.5 Mg Tab) 12.5 mg PO BID [facility] Stop: 12/29/21 01:28 Last Admin: 12/02/21 08:32 Dose: 12.5 mg Diphenhydramine HCl (Diphenhydramine Capsule 25 Mg Cap) 25 mg PO TID PRN PRN Reason: Itching Stop: 12/31/21 19:11 Last Admin: 12/02/21 06:36 Dose: 25 mg Docusate Sodium (Docusate Sodium 100 Mg Cap) 100 mg PO BID [facility] Stop: 12/29/21 01:28 Last Admin: 12/02/21 08:32 Dose: Not Given Ezetimibe (Ezetimibe 10 Mg Tablet) 10 mg PO DAILY [facility] Stop: 12/29/21 08:59 Last Admin: 12/02/21 08:33 Dose: 10 mg Folic Acid (Folic Acid 400 Mcg Tab) 400 mcg PO QAM [facility] Stop: 12/29/21 08:59 Last Admin: 12/02/21 08:31 Dose: 400 mcg Hydralazine HCl (Hydralazine Hcl 25 Mg Tab) 25 mg PO BID [facility] Stop: 12/29/21 01:28 Last Admin: 12/02/21 08:30 Dose: 25 mg Bumetanide 1 mg/ Syringe 4 mls @ 4 mls/min IV BID@0900,1700 [facility] Stop: 12/29/21 08:59 Last Admin: 12/02/21 08:30 Dose: 4 mls/min Piperacillin Sod/Tazobactam (Sod 3.375 gm/ Dextrose) 115 mls @ 28.75 mls/hr IV Q8H [facility]; Protocol Stop: 12/14/21 14:59 Last Admin: 12/02/21 06:30 Dose: 28.8 mls/hr Magnesium Oxide (Magnesium Oxide 400 Mg Tab) 400 mg PO DAILY [facility] Stop: 12/29/21 08:59 Last Admin: 12/02/21 08:31 Dose: 400 mg Miscellaneous (Dutasteride: Order Awaiting Action) 1 each N/A QS [facility] Stop: 12/29/21 07:59 Last Admin: 12/02/21 08:28 Dose: Not Given Miscellaneous (Remove Nitro-Dur Patch) 1 each N/A DAILY@2100 [facility] Stop: 12/29/21 01:28 Last Admin: 12/01/21 20:19 Dose: 1 each Nitroglycerin (Nitroglycerin 0.4 Mg/Hr Patch) 1 patch TD QAM [facility] Stop: 12/29/21 08:59 Last Admin: 12/02/21 08:33 Dose: 1 patch Ondansetron HCl (Ondansetron Inj 2 Mg/Ml 2 Ml Vial) 4 mg IV Q6H PRN PRN Reason: Nausea Stop: 12/29/21 01:28 Polyethylene Glycol (Polyethylene (Miralax) 17 Gm Pack) 17 gm PO DAILY PRN PRN Reason: Constipation Stop: 12/29/21 01:28 Potassium Chloride (Potassium Chloride Crtab 20 Meq Tabcr) 40 meq PO BID [facility] Stop: 12/31/21 08:59 Last Admin: 12/01/21 20:16 Dose: Not Given Rivaroxaban (Rivaroxaban 2.5 Mg Tab) 2.5 mg PO BID [facility] Stop: 12/29/21 02:29 Last Admin: 12/02/21 08:31 Dose: 2.5 mg Rosuvastatin Calcium (Rosuvastatin Calcium 5 Mg Tab) 5 mg PO DAILY [facility] Stop: 12/29/21 08:59 Last Admin: 12/02/21 08:32 Dose: 5 mg Tamsulosin HCl (Tamsulosin Hcl 0.4 Mg Cap) 0.8 mg PO DAILY [facility] Stop: 12/29/21 08:59 Last Admin: 12/02/21 08:31 Dose: 0.8 mg Triamcinolone Acetonide (Triamcinolone Acet 0.1% Cr 15 Gm Tube) 1 appln TOP TID PRN PRN Reason: itching Stop: 12/29/21 01:28 Vitamin D (Cholecalciferol 1,000 Units 25 Mcg Tab) 2,000 units PO DAILY [facility] Stop: 12/29/21 08:59 Last Admin: 12/02/21 08:34 Dose: 2,000 units Zinc Sulfate (Zinc Sulfate 220 Mg Capsule) 220 mg PO DAILY [facility] Stop: 12/29/21 08:59 Last Admin: 12/02/21 08:32 Dose: 220 mg (1) Chronic kidney disease Chronic kidney disease stage: unspecified stage Qualified Code(s): N18.9 - Chronic kidney disease, unspecified (2) Pulmonary edema Chronicity: acute Qualified Code(s): J81.0 - Acute pulmonary edema
[2021-12-02] MEDS ORDERED: levoFLOXacin/D5W 750 MG/150 ML BAG IV SCH (09:00)
[2021-12-02] MEDS: POTASSIUM CHLORIDE PWD 20 MEQ PACK PO SCH ×2 (09:36→20:24)
[2021-12-02] MEDS: POTASSIUM CHLORIDE / WTR 10 MEQ/100 ML PLCT IV SCH ×2 (12:16→14:18)
[2021-12-02] MEDS ORDERED: POTASSIUM CHLORIDE PWD 20 MEQ PACK PO ONE (14:01)
--- NOTE | 2021-12-02 15:17 | Cardiology Progress Note ---
Date of Service December 02, 2021 Assessment & Plan (1) Acute on chronic systolic HF (heart failure): (2) Hypokalemia: (3) Bacteremia: Plan: 86-year-old male with longstanding history of coronary disease, ischemic cardiomyopathy, LVEF 45- 50% on echocardiogram this admission, remote history of CABG 1996 presents with shortness of breath and lower extremity edema. (1) Acute on chronic systolic HF (heart failure), ischemic cardiomyopathy: -Patient has been receiving bumetanide 1 mg IV twice daily, 9 AM, 1700 -Yesterday, 12/01/2021, received metolazone 5 mg x 1 at 1630. Although his intake and outtake summary do not reflect significant diuresis, based on the fact that his potassium has gone down to 3 mmol/L, with suggested if he can diuretic effect with metolazone which was administered yesterday at 1701. -At present, I recommend holding his p.m. dose of Bumex pending ensuring that his potassium has normalized. Chemistry panel planned for tomorrow. -We will reassess tomorrow with regards to reinitiating 2 time per day dosing of diuretic. My personal advice is that I would administer diuretic in a similar fashion as what I would tell someone to do outside the hospital at home. The patient does not have a Desir catheter in place, I would typically have him take his first dose first thing in the morning, and his afternoon dose at 1400, is taking the p.m. dose closer to 1700 would likely cause diuretic effect when he is trying to sleep with increased risk of falls trying to use the restroom. Continue aspirin, carvedilol, ezetimibe, hydralazine, nitroglycerin patch, rosuvastatin, Xarelto (PAD dose) 2.5 mg twice daily. (2) Hypokalemia: -Patient has received oral and IV potassium replacement. Repeat chemistry panel tomorrow. (3) Bacteremia: -4 blood cultures positive for Myroides species. Left lower extremity wound likely source. Patient afebrile. -Patient received a single dose of levofloxacin, but this has been transitioned to meropenem as he was found to have a prolonged QT interval on EKG tracings performed 11/28 and again on 11/29. Repeat EKG again tomorrow. Admission and Anticipated Discharge Date Admission Date: November 28, 2021 Subjective Patient seen in cardiology follow-up for history of acute on chronic heart failure with reduced ejection fraction, ischemic cardiomyopathy, assessed by the undersigned for the first time today. Patient notes that he felt like his breathing was getting better, but has worsened today. Ongoing lower extremity edema noted. Telemetry reveals sinus rhythm in the 70s. Physical Exam Physical Exam: Temp Pulse Resp BP Pulse Ox O2 Del Method O2 Flow Rate 36.8 C 74 20 129/63 97 2.5 12/02/21 10:52 12/02/21 12:49 12/02/21 10:52 12/02/21 10:52 12/02/21 10:52 12/02/21 12:49 12/01/21 03:11 Constitutional: Chronically ill in appearance, no acute distress Respiratory: no labored breathing and does not use accessory muscles Auscultation: + diminished lung sounds (Decreased breath sounds the bases bilaterally); no crackles and no rales Cardiovascular: Rate/Rhythm: regular rate and regular rhythm Heart Sounds: normal S1 and normal S2; no murmur Extremities: + edema (2+ bilateral lower extremity edema, left lower extremity wound, wrapped) Gastrointestinal (Abdomen): normal bowel sounds, soft, nontender, no hepatosplenomegaly Neurologic: PERRL, EOMI, accommodation nl, no face palsy, no dysarthria Results & Data ([facility]) Laboratory Results CBC 12/02/21 Range/Units 05:25 WBC 6.06 (4.8-10.8) K/ul RBC 3.19 L (4.63-6.08) M/uL Hgb 9.0 L (14.0-18.0) g/dl Hct 28.3 L (40.1-51.0) % Plt Count 187 (130-400) K/uL Comprehensive Metabolic Panel 12/02/21 Range/Units 05:25 Sodium 133 L (136-145) mmol/L Potassium 3.0 L (3.5-5.1) mmol/L Chloride 90 L (98-107) mmol/L Carbon Dioxide 33 H (21-32) mmol/L BUN 61 H (6-23) mg/dl Creatinine 2.07 H (0.6-1.4) mg/dl Glucose 103 H (70-99(Fasting)) mg/dl Calcium 8.5 (8.5-10.1) mg/dl Diagnostic Findings Portable chest x-ray performed today, official report pending, but per my review, ongoing interstitial edema noted.
--- NOTE | 2021-12-02 15:19 | XRay Report ---
XR chest 1V portable HISTORY: shortness of breath COMPARISON: Chest 12/01/2021. FINDINGS: No pneumothorax. The heart remains enlarged. There are poststernotomy changes. There are lo w lung volumes. Small bilateral pleural effusions and bibasilar densities persist. There is mild cent ral pulmonary vascular congestion without overt edema. This is similar to the prior study. IMPRESSION: 1. Cardiomegaly with mild pulmonary vascular congestion, unchanged. 2. Small bilateral pleural effusions and bibasilar densities persist. ACT 112: Negative or not required by law. Electronically signed by: Singh Rangel M.D. 12/02/2021 3:18 PM
[2021-12-03 08:13] LABS: BUN Creatinine Ratio 26.4 (10-20); Calcium 8.7 mg/dl (8.5-10.1); Creatinine Clr Calc Pharmacy 24.6 ml/min; Est GFR (African American) 31.2 ml/min; Est GFR (Non-African American) 26.9 ml/min; Magnesium 2.1 mg/dl (1.7-2.4); Phosphorus 3.1 mg/dl (2.5-4.9); Potassium 3.6 mmol/L (3.5-5.1)
[2021-12-03] MEDS: carvediloL 12.5 MG TAB PO SCH ×2 (08:42→22:19)
[2021-12-03] MEDS: MEROPENEM 500 MG in SYRINGE 0 ML IV SCH ×2 (08:42→15:49)
[2021-12-03] MEDS: POTASSIUM CHLORIDE PWD 20 MEQ PACK PO SCH ×2 (08:42→22:20)
[2021-12-03] MEDS: hydrALAZINE HCL 25 MG TAB PO SCH ×2 (08:42→22:19)
[2021-12-03] MEDS: RIVAROXABAN 2.5 MG TAB PO SCH ×2 (08:42→22:20)
[2021-12-03] MEDS: NITROGLYCERIN 0.4 MG/HR PATCH TD SCH (08:43)
[2021-12-03] MEDS: ASPIRIN 81 MG ECTAB PO SCH (08:43)
[2021-12-03] MEDS: MAGNESIUM OXIDE 400 MG TAB PO SCH (08:43)
[2021-12-03] MEDS: ASCORBIC ACID 500 MG TAB PO SCH (08:44)
[2021-12-03] MEDS: CHOLECALCIFEROL 1,000 UNITS 25 MCG TAB PO SCH (08:44)
[2021-12-03] MEDS: ZINC SULFATE 220 MG CAPSULE PO SCH (08:44)
[2021-12-03] MEDS: FOLIC ACID 400 MCG TAB PO SCH (08:44)
[2021-12-03] MEDS: ROSUVASTATIN CALCIUM 5 MG TAB PO SCH (08:44)
[2021-12-03] MEDS: DOCUSATE SODIUM 100 MG CAP PO SCH ×2 (08:44→22:22)
[2021-12-03] MEDS: TAMSULOSIN HCL 0.4 MG CAP PO SCH (08:44)
[2021-12-03] MEDS: EZETIMIBE 10 MG TABLET PO SCH (08:44)
[2021-12-03] MEDS: ADVANCED PROBIOTIC 1250 MG CAPSULE PO SCH (08:45)
[2021-12-03] MEDS: MENTHOL-ZINC OXIDE 360 APPLN/120 GM TUBE EXT PRN ×2 (10:00→13:49)
[2021-12-03] MEDS ORDERED: BUMETANIDE 1 MG in SYRINGE 0 ML IV ONE (10:25)
[2021-12-03] MEDS ORDERED: POTASSIUM CHLORIDE PWD 20 MEQ PACK PO ONE (12:06)
--- NOTE | 2021-12-03 12:07 | Hospitalist Progress Note ---
Date of Service December 03, 2021 Assessment & Plan (1) Pulmonary edema: (2) Acute decompensated heart failure: Plan: This is an 86yo M with a PMH of combined systolic and diastolic heart failure, CKD 3 (baseline Cr 1.8-2), history of kidney stones, history of carotid stenosis s/p MAYELA, CAD (s/p CABG in 1995), HTN, PVD and other medical problems as below who presents with shortness of breath and found to be in decompensated heart failure. Pt also found bacteremic. Progressive SOB, developed PND overnight Saturating 100% on 2L NC on admission BNP 2,520, HS troponin 41 CXR with cardiomegaly with evidence of congestive failure and pulmonary edema. Small pleural effusions with bibasilar consolidation 2D echo from August 2021 with EF 45 to 50%, moderate size anterior and lateral wall motion abnormality with hypokinesis, aortic valve sclerosis without stenosis, grade 3 diastolic dysfunction Low sodium diet, monitor daily weights Given Bumex 1mg IV in ED. Continue Bumex 1mg IV BID - 12/01 - will also give metolazone. Current Echo: There is no evidence of mass or vegetation. This does not rule out endocarditis. LV is normal in size. There is anterior wall akinesis. There is lateral wall akinesis. EF 40 to 45%. RV systolic function is normal. LA is severely dilated. RA size is normal. Aortic valve sclerosis moderate, without significant aortic valvular stenosis. Mild aortic regurg. There is moderate mitral regurg. There is moderate to severe tricuspid regurg. The estimated pulmonary artery systolic pressure is 50 mmHg. Cardiology consulted Continue currently with his cardiac medications and diuresis. Patient has outpatient sizing machine tender, Dr. Chavira. Continue all other outpatient cardiac meds including ASA, carvedilol, zetia, crestor. He has outpatient vascular team as well at [facility]. Reviewed records from patient's sizing machine tender, patient on Xarelto 2.5 mg twice daily in addition to aspirin 81 mg daily given the results of Compass trial. 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 - isolated on 11/28 and 11/29 blood cultx Blood cultx from 11/30 - so far negative Switched Rocephin to zosyn when blood cultx became positive 12/02 - gave x1 dose of levaquin after sp. identified on blood cultx - however pt has prolonged QT on EKG from 11/28 and 11/29-> switched to meropenem for now, await ID consult UA negat. ID consult placed (4) Elevated troponin: Plan: Most likely demand ischemia in setting of CHF, CKD. No chest pain (5) Anemia in chronic kidney disease: Plan: Received IV iron during previous admission. Hgb 9.7, at baseline. Continue iron supplement BID (6) HTN (hypertension): Plan: Continue carvedilol and hydralazine. Nifedipine and losartan discontinued on previous admission (7) PAD (peripheral artery disease): Plan: Continue aspirin, statin (8) Chronic kidney disease: Plan: CKD III with baseline Cr 1.8-2. Currently at baseline. Monitor with daily BMP (9) BPH w urinary obs/LUTS: Plan: Continue Flomax. Bladder scan as needed DVT Ppx: Xarelto Code status: FULL PCP: Dr. Anguiano Dispo: med-tele Admission and Anticipated Discharge Date Admission Date: November 28, 2021 Subjective Patient seen in follow-up of CHF, Pt also found bacteremic Currently lying in bed, in no acute distress, but on suppl. O2 Reports feeling better Denies any fevers, chills, chest pain, incr. shortness of breath, palpitations, dizziness Blood cultures positive for gram-negative bacilli switched to zosyn, ID consult placed Review of Systems Review of Systems: All systems reviewed & are unremarkable except as noted in Subjective Physical Exam Physical Exam: General: elderly frail M in NAD, laying in bed on suppl. O2 Lungs: Good air entry b/l but b/l lower lobe mild crackles Cardiac: Normal S1/S2, no murmur Abd: ND, soft and NT, + bowel sounds MSK: b/l leg pitting edema, L>R --- L leg: erythematous and warmth to touch, dry clean bandage in place Psych: AAOx3, normal affect Results & Data Results & Data ([facility]) Vital Signs (Past 12 Hours) Vital Signs Temp Pulse Resp BP Pulse Ox O2 Del Method 12/03/21 11:42 36.6 C 85 18 114/58 L 96 Room Air 12/03/21 08:57 36.7 C 61 17 133/68 97 Room Air Laboratory Results 12/03/21 Range/Units 07:18 Sodium 134 L (136-145) mmol/L Potassium 3.6 (3.5-5.1) mmol/L Chloride 93 L (98-107) mmol/L Carbon Dioxide 31 (21-32) mmol/L Anion Gap 10 (3-11) BUN 57 H (6-23) mg/dl Creatinine 2.16 H (0.6-1.4) mg/dl Est Cr Clr Drug Dosing 24.6 ml/min Est GFR ( Amer) 31.2 ml/min Est GFR (Non-Af Amer) 26.9 ml/min BUN/Creatinine Ratio 26.4 H (10-20) Glucose 108 H (70-99(Fasting)) mg/dl Calcium 8.7 (8.5-10.1) mg/dl Phosphorus 3.1 (2.5-4.9) mg/dl Magnesium 2.1 (1.7-2.4) mg/dl Medications Administered Current Inpatient Medications Acetaminophen (Acetaminophen 325 Mg Tab) 650 mg PO Q4H PRN PRN Reason: Pain or Fever Stop: 12/29/21 01:28 Ascorbic Acid (Ascorbic Acid 500 Mg Tab) 1,000 mg PO DAILY [facility]EN Stop: 12/29/21 08:59 Last Admin: 12/03/21 08:44 Dose: 1,000 mg Aspirin (Aspirin 81 Mg Ectab) 81 mg PO DAILY [facility] Stop: 12/29/21 08:59 Last Admin: 12/03/21 08:43 Dose: 81 mg Calamine/Phenol (Menthol-Zinc Oxide 360 Appln/120 Gm Tube) 1 appln EXT TID PRN PRN Reason: skin irritation Stop: 12/29/21 01:28 Carvedilol (Carvedilol 12.5 Mg Tab) 12.5 mg PO BID [facility] Stop: 12/29/21 01:28 Last Admin: 12/03/21 08:42 Dose: 12.5 mg Diphenhydramine HCl (Diphenhydramine Capsule 25 Mg Cap) 25 mg PO TID PRN PRN Reason: Itching Stop: 12/31/21 19:11 Last Admin: 12/02/21 06:36 Dose: 25 mg Docusate Sodium (Docusate Sodium 100 Mg Cap) 100 mg PO BID [facility] Stop: 12/29/21 01:28 Last Admin: 12/03/21 08:44 Dose: Not Given Ezetimibe (Ezetimibe 10 Mg Tablet) 10 mg PO DAILY [facility] Stop: 12/29/21 08:59 Last Admin: 12/03/21 08:44 Dose: 10 mg Folic Acid (Folic Acid 400 Mcg Tab) 400 mcg PO QAM [facility] Stop: 12/29/21 08:59 Last Admin: 12/03/21 08:44 Dose: 400 mcg Hydralazine HCl (Hydralazine Hcl 25 Mg Tab) 25 mg PO BID [facility] Stop: 12/29/21 01:28 Last Admin: 12/03/21 08:42 Dose: 25 mg Meropenem 500 mg/ Syringe 10 mls @ 2 mls/min IV Q8H [facility]; Protocol Stop: 12/17/21 07:59 Last Admin: 12/03/21 08:42 Dose: 2 mls/min Lactobacillus Acidophilus (Advanced Probiotic 1250 Mg Capsule) 2 cap PO DAILY [facility] Stop: 01/02/22 08:59 Last Admin: 12/03/21 08:45 Dose: 2 cap Magnesium Oxide (Magnesium Oxide 400 Mg Tab) 400 mg PO DAILY [facility] Stop: 12/29/21 08:59 Last Admin: 12/03/21 08:43 Dose: 400 mg Miscellaneous (Dutasteride: Order Awaiting Action) 1 each N/A QS [facility] Stop: 12/29/21 07:59 Last Admin: 12/03/21 08:44 Dose: Not Given Miscellaneous (Remove Nitro-Dur Patch) 1 each N/A DAILY@2100 [facility] Stop: 12/29/21 01:28 Last Admin: 12/02/21 20:33 Dose: 1 each Nitroglycerin (Nitroglycerin 0.4 Mg/Hr Patch) 1 patch TD QAM [facility] Stop: 12/29/21 08:59 Last Admin: 12/03/21 08:43 Dose: 1 patch Polyethylene Glycol (Polyethylene (Miralax) 17 Gm Pack) 17 gm PO DAILY PRN PRN Reason: Constipation Stop: 12/29/21 01:28 Potassium Chloride (Potassium Chloride Pwd 20 Meq Pack) 40 meq PO BID [facility] Stop: 01/01/22 08:59 Last Admin: 12/03/21 08:42 Dose: 40 meq Rivaroxaban (Rivaroxaban 2.5 Mg Tab) 2.5 mg PO BID [facility] Stop: 12/29/21 02:29 Last Admin: 12/03/21 08:42 Dose: 2.5 mg Rosuvastatin Calcium (Rosuvastatin Calcium 5 Mg Tab) 5 mg PO DAILY [facility] Stop: 12/29/21 08:59 Last Admin: 12/03/21 08:44 Dose: 5 mg Tamsulosin HCl (Tamsulosin Hcl 0.4 Mg Cap) 0.8 mg PO DAILY [facility] Stop: 12/29/21 08:59 Last Admin: 12/03/21 08:44 Dose: 0.8 mg Triamcinolone Acetonide (Triamcinolone Acet 0.1% Cr 15 Gm Tube) 1 appln TOP TID PRN PRN Reason: itching Stop: 12/29/21 01:28 Vitamin D (Cholecalciferol 1,000 Units 25 Mcg Tab) 2,000 units PO DAILY [facility] Stop: 12/29/21 08:59 Last Admin: 12/03/21 08:44 Dose: 2,000 units Zinc Sulfate (Zinc Sulfate 220 Mg Capsule) 220 mg PO DAILY [facility] Stop: 12/29/21 08:59 Last Admin: 12/03/21 08:44 Dose: 220 mg (1) Chronic kidney disease Chronic kidney disease stage: unspecified stage Qualified Code(s): N18.9 - Chronic kidney disease, unspecified (2) Pulmonary edema Chronicity: acute Qualified Code(s): J81.0 - Acute pulmonary edema
--- NOTE | 2021-12-03 12:52 | Electrocardiogram Report ---
Test Reason : Blood Pressure : / mmHG Vent. Rate : 067 BPM Atrial Rate : 067 BPM P-R Int : 184 ms QRS Dur : 104 ms QT Int : 476 ms P-R-T Axes : 047 024 126 degrees QTc Int : 502 ms Sinus rhythm with occasional Premature ventricular complexes and Premature atrial complexes Nonspecific ST and T wave abnormality Lateral leads Prolonged QT Abnormal ECG When compared with ECG of 29-NOV-2021 06:04, Premature ventricular complexes are now Present Confirmed by José Luis Hills ([id number]) on 12/03/2021 12:52:07 PM Referred By: REFERRED SELF Confirmed By:José Luis Hills
--- NOTE | 2021-12-03 13:02 | Cardiology Progress Note ---
Date of Service December 03, 2021 Assessment & Plan (1) Acute on chronic systolic HF (heart failure): (2) Hypokalemia: (3) Bacteremia: Plan: 86-year-old male with longstanding history of coronary disease, ischemic cardiomyopathy, LVEF 45- 50% on echocardiogram this admission, remote history of CABG 1996 presents with shortness of breath and lower extremity edema. (1) Acute on chronic systolic HF (heart failure), ischemic cardiomyopathy: -Resume bumex 1 mg IV BID at 7 am, 1400. Continue aspirin, carvedilol, ezetimibe, hydralazine, nitroglycerin patch, rosuvastatin, Xarelto (PAD dose) 2.5 mg twice daily. (2) Hypokalemia: -Continue oral potassium replacement. Repeat chemistry panel tomorrow. (3) Bacteremia: -4 blood cultures positive for Myroides species. Left lower extremity wound likely source. Patient afebrile. -Patient received a single dose of levofloxacin, but this has been transitioned to meropenem as he was found to have a prolonged QT interval on EKG tracings performed 11/28 and again on 11/29. -EKG 12/03/21= SR at 67 with PVCs , QTc 502 ms Agree with IV meropenem day 1. DVT prophylaxis: Continue Xarelto, PAD Dose, monitor renal function. Admission and Anticipated Discharge Date Admission Date: November 28, 2021 Subjective Pt seen in cardiology follow up of CHF. Sitting in bedside chair. No acute complaints, however ongoing L > R LE edema noted. Telemetry reveals SR in the 70s. Review of Systems Review of Systems: All systems reviewed & are unremarkable except as noted in HPI & below Physical Exam Constitutional: no acute distress Respiratory: no labored breathing and does not use accessory muscles Auscultation: + diminished lung sounds (Decreased breath sounds the bases bilaterally); no crackles and no rales Cardiovascular: Rate/Rhythm: regular rate and regular rhythm Heart Sounds: normal S1 and normal S2; no murmur Extremities: + edema (2+ bilateral lower extremity edema, left lower extremity wound, wrapped) Gastrointestinal (Abdomen): normal bowel sounds, soft, nontender, no hepatosplenomegaly Neurologic: PERRL, EOMI, accommodation nl, no face palsy, no dysarthria Results & Data ([facility]) Vital Signs (Past 12 Hours) Vital Signs Temp Pulse Pulse Resp BP Pulse Ox O2 Del Method 12/03/21 08:00 71 12/03/21 08:00 Room Air 12/03/21 11:42 36.6 C 85 18 114/58 L 96 Room Air 12/03/21 08:57 36.7 C 61 17 133/68 97 Room Air Laboratory Results Comprehensive Metabolic Panel 12/03/21 Range/Units 07:18 Sodium 134 L (136-145) mmol/L Potassium 3.6 (3.5-5.1) mmol/L Chloride 93 L (98-107) mmol/L Carbon Dioxide 31 (21-32) mmol/L BUN 57 H (6-23) mg/dl Creatinine 2.16 H (0.6-1.4) mg/dl Glucose 108 H (70-99(Fasting)) mg/dl Calcium 8.7 (8.5-10.1) mg/dl Intake and Output 12/02/21 12/03/21 12/03/21 22:59 06:59 14:59 Intake Total 240 / 805 Output Total 153 / 304 150 / 304 Balance -153 / 501 90 / 501 Intake: Oral 240 / 440 Output: Urine 150 / 300 150 / 300 # Bowel Movements 3 / 4 Other: Other Intake Source sips # Unmeasured Voids 2 Weight 78.3 kg Weight Measurement Method Built in [facility]
[2021-12-03] MEDS: BUMETANIDE 2 MG in SYRINGE 0 ML IV SCH (13:25)
[2021-12-04] MEDS: MEROPENEM 500 MG in SYRINGE 0 ML IV SCH ×3 (00:23→19:51)
[2021-12-04 07:00] LABS: Mean Corpuscular Hemoglobin 27.4 pg (25.0-34.0); Mean Corpuscular Volume 88.4 fL (80.0-100.0); Mean Platelet Volume 11.1 fL (9.4-12.4); Platelet Count 208 K/uL (130-400); RDW Coefficient of Variation 16.1 % (11.5-14.5); RDW Standard Deviation 52.6 fL (36.4-46.3); Red Blood Count 3.28 M/uL (4.63-6.08); White Blood Count 8.74 K/ul (4.8-10.8)
--- NOTE | 2021-12-04 07:25 | Hospitalist Progress Note ---
Date of Service December 04, 2021 Assessment & Plan (1) Pulmonary edema: (2) Acute decompensated heart failure: Plan: This is an 86yo M with a PMH of combined systolic and diastolic heart failure, CKD 3 (baseline Cr 1.8-2), history of kidney stones, history of carotid stenosis s/p MAYELA, CAD (s/p CABG in 1995), HTN, PVD and other medical problems as below who presents with shortness of breath and found to be in decompensated heart failure. Pt also found bacteremic. Progressive SOB, developed PND overnight Saturating 100% on 2L NC on admission BNP 2,520, HS troponin 41 CXR with cardiomegaly with evidence of congestive failure and pulmonary edema. Small pleural effusions with bibasilar consolidation 2D echo from August 2021 with EF 45 to 50%, moderate size anterior and lateral wall motion abnormality with hypokinesis, aortic valve sclerosis without stenosis, grade 3 diastolic dysfunction Low sodium diet, monitor daily weights Given Bumex 1mg IV in ED. Continue Bumex 1mg IV BID - 12/01 - will also give metolazone. Current Echo: There is no evidence of mass or vegetation. This does not rule out endocarditis. LV is normal in size. There is anterior wall akinesis. There is lateral wall akinesis. EF 40 to 45%. RV systolic function is normal. LA is severely dilated. RA size is normal. Aortic valve sclerosis moderate, without significant aortic valvular stenosis. Mild aortic regurg. There is moderate mitral regurg. There is moderate to severe tricuspid regurg. The estimated pulmonary artery systolic pressure is 50 mmHg. Cardiology consulted Continue currently with his cardiac medications and diuresis. Patient has outpatient b2b sales manager, Dr. Chavira. Continue all other outpatient cardiac meds including ASA, carvedilol, zetia, crestor. He has outpatient vascular team as well at [facility]. Reviewed records from patient's b2b sales manager, patient on Xarelto 2.5 mg twice daily in addition to aspirin 81 mg daily given the results of Compass trial. 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 - isolated on 11/28 and 11/29 blood cultx Blood cultx from 11/30 - so far negative Switched Rocephin to zosyn when blood cultx became positive 12/02 - gave x1 dose of levaquin after sp. identified on blood cultx - however pt has prolonged QT on EKG from 11/28 and 11/29-> switched to meropenem for now, await ID consult UA negat. ID consult placed ID (12/04/2021) Continue with meropenem, on discharge may possibly switch to Bactrim or ertapenem. Patient has CKD, not likely continue Bactrim. Sensitivities for ertapenem not obtained, will try to talk to micro lab. (4) Elevated troponin: Plan: Most likely demand ischemia in setting of CHF, CKD. No chest pain (5) Anemia in chronic kidney disease: Plan: Received IV iron during previous admission. Hgb 9.7, at baseline. Continue iron supplement BID (6) HTN (hypertension): Plan: Continue carvedilol and hydralazine. Nifedipine and losartan discontinued on previous admission (7) PAD (peripheral artery disease): Plan: Continue aspirin, statin (8) Chronic kidney disease: Plan: CKD III with baseline Cr 1.8-2. Currently at baseline. Monitor with daily BMP (9) BPH w urinary obs/LUTS: Plan: Continue Flomax. Bladder scan as needed Diarrhea - obtain c.diff DVT Ppx: Xarelto Code status: FULL PCP: Dr. Anguiano Dispo: med-tele Admission and Anticipated Discharge Date Admission Date: November 28, 2021 Subjective Patient seen in follow-up of CHF, Pt also found bacteremic Currently sitting up in chair, in no acute distress Reports feeling better Denies any fevers, chills, chest pain, incr. shortness of breath, palpitations, dizziness + diarrhea Blood cultures positive for gram-negative bacilli switched to meropenem, ID consult obtained today Review of Systems Review of Systems: All systems reviewed & are unremarkable except as noted in Subjective Physical Exam Physical Exam: General: elderly frail M in NAD, sitting up in chair Lungs: Good air entry b/l but diminished at bases Cardiac: Normal S1/S2, no murmur Abd: ND, soft and NT, + bowel sounds MSK: b/l leg pitting edema, L>R --- L leg: erythematous and warmth to touch, dry clean bandage in place Psych: AAOx3, normal affect Results & Data Results & Data ([facility]) Vital Signs (Past 12 Hours) Vital Signs Temp Pulse Pulse Resp BP BP Pulse Ox 12/04/21 04:00 36.6 C 62 20 120/59 L 96 12/04/21 04:00 36.7 C 67 20 171/86 H 96 12/03/21 22:47 65 12/04/21 03:08 12/03/21 23:00 36.7 C 81 20 124/69 98 12/03/21 20:00 36.5 C 70 20 133/65 92 O2 Del Method O2 Flow Rate 12/04/21 04:00 Room Air 12/04/21 04:00 Room Air 12/03/21 22:47 12/04/21 03:08 Room Air 12/03/21 23:00 Room Air 12/03/21 20:00 Nasal Cannula 3 Laboratory Results 12/04/21 12/04/21 Range/Units 06:38 06:38 WBC 8.74 (4.8-10.8) K/ul RBC 3.28 L (4.63-6.08) M/uL Hgb 9.0 L (14.0-18.0) g/dl Hct 29.0 L (40.1-51.0) % MCV 88.4 (80.0-100.0) fL MCH 27.4 (25.0-34.0) pg MCHC 31.0 L (32.0-36.0) g/dL RDW Std Deviation 52.6 H (36.4-46.3) fL RDW Coeff of Dmitriy 16.1 H (11.5-14.5) % Plt Count 208 (130-400) K/uL MPV 11.1 (9.4-12.4) fL Sodium 134 L (136-145) mmol/L Potassium 4.0 (3.5-5.1) mmol/L Chloride 94 L (98-107) mmol/L Carbon Dioxide 32 (21-32) mmol/L Anion Gap 8 (3-11) BUN 57 H (6-23) mg/dl Creatinine 2.19 H (0.6-1.4) mg/dl Est Cr Clr Drug Dosing 22.3 ml/min Est GFR ( Amer) 30.7 ml/min Est GFR (Non-Af Amer) 26.5 ml/min BUN/Creatinine Ratio 26.0 H (10-20) Glucose 120 H (70-99(Fasting)) mg/dl Calcium 8.7 (8.5-10.1) mg/dl Phosphorus 3.4 (2.5-4.9) mg/dl Magnesium 2.2 (1.7-2.4) mg/dl Medications Administered Current Inpatient Medications Acetaminophen (Acetaminophen 325 Mg Tab) 650 mg PO Q4H PRN PRN Reason: Pain or Fever Stop: 12/29/21 01:28 Ascorbic Acid (Ascorbic Acid 500 Mg Tab) 1,000 mg PO DAILY [facility] Stop: 12/29/21 08:59 Last Admin: 12/04/21 08:40 Dose: 1,000 mg Aspirin (Aspirin 81 Mg Ectab) 81 mg PO DAILY [facility] Stop: 12/29/21 08:59 Last Admin: 12/04/21 08:40 Dose: 81 mg Calamine/Phenol (Menthol-Zinc Oxide 360 Appln/120 Gm Tube) 1 appln EXT TID PRN PRN Reason: skin irritation Stop: 12/29/21 01:28 Last Admin: 12/03/21 13:49 Dose: 1 appln Carvedilol (Carvedilol 12.5 Mg Tab) 12.5 mg PO BID [facility] Stop: 12/29/21 01:28 Last Admin: 12/04/21 08:39 Dose: 12.5 mg Diphenhydramine HCl (Diphenhydramine Capsule 25 Mg Cap) 25 mg PO TID PRN PRN Reason: Itching Stop: 12/31/21 19:11 Last Admin: 12/02/21 06:36 Dose: 25 mg Docusate Sodium (Docusate Sodium 100 Mg Cap) 100 mg PO BID [facility] Stop: 12/29/21 01:28 Last Admin: 12/04/21 08:42 Dose: Not Given Ezetimibe (Ezetimibe 10 Mg Tablet) 10 mg PO DAILY [facility]EN Stop: 12/29/21 08:59 Last Admin: 12/04/21 08:41 Dose: 10 mg Folic Acid (Folic Acid 400 Mcg Tab) 400 mcg PO QAM KAREN Stop: 12/29/21 08:59 Last Admin: 12/04/21 08:41 Dose: 400 mcg Hydralazine HCl (Hydralazine Hcl 25 Mg Tab) 25 mg PO BID [facility] Stop: 12/29/21 01:28 Last Admin: 12/04/21 08:39 Dose: 25 mg Meropenem 500 mg/ Syringe 10 mls @ 2 mls/min IV Q8H [facility]; Protocol Stop: 12/17/21 07:59 Last Admin: 12/04/21 08:39 Dose: 2 mls/min Bumetanide 2 mg/ Syringe 8 mls @ 4 mls/min IV [id number] KAREN Stop: 01/02/22 13:59 Last Admin: 12/04/21 08:39 Dose: 4 mls/min Lactobacillus Acidophilus (Advanced Probiotic 1250 Mg Capsule) 2 cap PO DAILY [facility] Stop: 01/02/22 08:59 Last Admin: 12/04/21 08:40 Dose: 2 cap Magnesium Oxide (Magnesium Oxide 400 Mg Tab) 400 mg PO DAILY [facility]AREN Stop: 12/29/21 08:59 Last Admin: 12/04/21 08:40 Dose: 400 mg Miscellaneous (Dutasteride: Order Awaiting Action) 1 each N/A QS KAREN Stop: 12/29/21 07:59 Last Admin: 12/04/21 08:42 Dose: Not Given Miscellaneous (Remove Nitro-Dur Patch) 1 each N/A DAILY@2100 [facility] Stop: 12/29/21 01:28 Last Admin: 12/03/21 22:22 Dose: 1 each Nitroglycerin (Nitroglycerin 0.4 Mg/Hr Patch) 1 patch TD QAM KAREN Stop: 12/29/21 08:59 Last Admin: 12/04/21 08:41 Dose: 1 patch Polyethylene Glycol (Polyethylene (Miralax) 17 Gm Pack) 17 gm PO DAILY PRN PRN Reason: Constipation Stop: 12/29/21 01:28 Potassium Chloride (Potassium Chloride Pwd 20 Meq Pack) 40 meq PO BID KAREN Stop: 01/01/22 08:59 Last Admin: 12/04/21 08:41 Dose: 40 meq Rivaroxaban (Rivaroxaban 2.5 Mg Tab) 2.5 mg PO BID KAREN Stop: 12/29/21 02:29 Last Admin: 12/04/21 08:39 Dose: 2.5 mg Rosuvastatin Calcium (Rosuvastatin Calcium 5 Mg Tab) 5 mg PO DAILY [facility]EN Stop: 12/29/21 08:59 Last Admin: 12/04/21 08:41 Dose: 5 mg Tamsulosin HCl (Tamsulosin Hcl 0.4 Mg Cap) 0.8 mg PO DAILY [facility] Stop: 12/29/21 08:59 Last Admin: 12/04/21 08:40 Dose: 0.8 mg Triamcinolone Acetonide (Triamcinolone Acet 0.1% Cr 15 Gm Tube) 1 appln TOP TID PRN PRN Reason: itching Stop: 12/29/21 01:28 Vitamin D (Cholecalciferol 1,000 Units 25 Mcg Tab) 2,000 units PO DAILY KAREN Stop: 12/29/21 08:59 Last Admin: 12/04/21 08:40 Dose: 2,000 units Zinc Sulfate (Zinc Sulfate 220 Mg Capsule) 220 mg PO DAILY KAREN Stop: 12/29/21 08:59 Last Admin: 12/04/21 08:40 Dose: 220 mg (1) Chronic kidney disease Chronic kidney disease stage: unspecified stage Qualified Code(s): N18.9 - Chronic kidney disease, unspecified (2) Pulmonary edema Chronicity: acute Qualified Code(s): J81.0 - Acute pulmonary edema
[2021-12-04 07:28] LABS: Calcium 8.7 mg/dl (8.5-10.1); Creatinine Clr Calc Pharmacy 22.3 ml/min; Est GFR (African American) 30.7 ml/min; Est GFR (Non-African American) 26.5 ml/min; Magnesium 2.2 mg/dl (1.7-2.4); Phosphorus 3.4 mg/dl (2.5-4.9)
[2021-12-04] MEDS: carvediloL 12.5 MG TAB PO SCH ×2 (08:39→19:45)
[2021-12-04] MEDS: BUMETANIDE 2 MG in SYRINGE 0 ML IV SCH ×2 (08:39→15:06)
[2021-12-04] MEDS: hydrALAZINE HCL 25 MG TAB PO SCH ×2 (08:39→19:42)
[2021-12-04] MEDS: RIVAROXABAN 2.5 MG TAB PO SCH ×2 (08:39→19:35)
[2021-12-04] MEDS: CHOLECALCIFEROL 1,000 UNITS 25 MCG TAB PO SCH (08:40)
[2021-12-04] MEDS: MAGNESIUM OXIDE 400 MG TAB PO SCH (08:40)
[2021-12-04] MEDS: ADVANCED PROBIOTIC 1250 MG CAPSULE PO SCH (08:40)
[2021-12-04] MEDS: ASPIRIN 81 MG ECTAB PO SCH (08:40)
[2021-12-04] MEDS: ZINC SULFATE 220 MG CAPSULE PO SCH (08:40)
[2021-12-04] MEDS: ASCORBIC ACID 500 MG TAB PO SCH (08:40)
[2021-12-04] MEDS: TAMSULOSIN HCL 0.4 MG CAP PO SCH (08:40)
[2021-12-04] MEDS: NITROGLYCERIN 0.4 MG/HR PATCH TD SCH (08:41)
[2021-12-04] MEDS: EZETIMIBE 10 MG TABLET PO SCH (08:41)
[2021-12-04] MEDS: FOLIC ACID 400 MCG TAB PO SCH (08:41)
[2021-12-04] MEDS: ROSUVASTATIN CALCIUM 5 MG TAB PO SCH (08:41)
[2021-12-04] MEDS: POTASSIUM CHLORIDE PWD 20 MEQ PACK PO SCH ×2 (08:41→19:36)
[2021-12-04] MEDS: DOCUSATE SODIUM 100 MG CAP PO SCH ×2 (08:42→19:43)
--- NOTE | 2021-12-04 09:36 | Cardiology Progress Note ---
Date of Service December 04, 2021 Assessment & Plan (1) Acute on chronic systolic HF (heart failure): (2) Hypokalemia: (3) Bacteremia: Plan 86-year-old male with longstanding history of coronary disease, ischemic cardiomyopathy, LVEF 45- 50% on echocardiogram this admission, remote history of CABG 1995 (ORTEGA-LAD, SVG-Diagonal, SVG-LCX, SVG-RCA with cath on June 12, 2016 revealing an occluded SVG-RCA graft, all other grafts patent) presented with shortness of breath and lower extremity edema. (1) Acute on chronic systolic HF (heart failure), ischemic cardiomyopathy: - Continue IV Bumex 2 mg twice a day (dose increased in the afternoon of 12/03/2021) - Hold metolazone (looks like he takes 5 mg every OTHER day at home) - Creatinine Clearance (via the original Cockcroft-Gault Equation) for a 86 year old male who weighs 76.4 kg and has a creatinine of 2.19 mg/dL is 27 mL/min. - ? Retrial of spironolactone 12.5 mg/day - Continue carvedilol, nitrates, hydralazine, aspirin, rosuvastatin, ezetimibe, Xarelto (PAD dose) 2.5 mg twice daily. (2) Hypokalemia: Continue oral potassium replacement. Check chemistry panel daily. (3) Bacteremia: 4 blood cultures positive for Myroides species. Left lower extremity wound likely source. Patient afebrile. Received a single dose of levofloxacin, transitioned to meropenem due to a prolonged QT interval on EKG's. QTc 502 on 12/03/2021 DVT prophylaxis: Continue Xarelto, PAD Dose, monitor renal function. Admission and Anticipated Discharge Date Admission Date: November 28, 2021 Supervising Physician Co-Signing Physician Notes Supervising Physician Attestation: I have personally performed a history and physical examination on the patient. I agree with the physician events assistant's findings and plan as documented with the following additions. Subjective: Making subtle progress, still with marked lower extremity edema Exam: Cardiovascular regular rhythm, no murmurs, 2+ left greater than right lower extremity edema noted, left lower leg cellulitis. Data: As noted above Assessment and Plan: Acute on chronic heart failure with reduced ejection fraction, ischemic cardiomyopathy, cellulitis with bacteremia -Continue Bumex 2 mg IV twice daily -Continue meropenem. -Cautious trial of spironolactone 25 mg daily given hypotension and creatinine of just around 2 mg/dL. I think now is the time to try this while his blood pressure and electrolytes can be followed. DVT prophylaxis: Patient on PAD dose Kleber Del Toro, Subjective Patient seen and examined. Chart, medications, and telemetry reviewed. Sitting in bedside chair Feeling OK, about the same Ongoing dyspnea and fluid retention. No chest pain. No palpitations. Legs wrapped. I/O's not accurately recorded. Telemetry: Sinus in the 60's and 70's. Review of Systems Review of Systems: He does not know his outpatient medication regimen; niece puts them in a weekly pill box Hard of hearing. Favoring the right ear. Cough. Diarrhea Complete review of systems is as stated above, negative, or noncontributory. Physical Exam Physical Exam: General: A&Ox3. NAD. Hard of hearing, favoring the right ear. + Hearing aid HENT: Normocephalic. Atraumatic. Eyes: PER. Conjunctiva pink, sclera clear. Neck: No carotid bruits. + JVD. Heart: RRR. Apical systolic murmur. Lungs: Absent breath sounds at the bases. Right basilar rales. No wheeze. Abdomen: +BS. Soft. Nontender. No masses or organomegaly. Extremities: 2+ hard indurated edema. Dressing not removed. No clubbing. No cyanosis Limited neurological examination is without focal deficits. Pulses: radial=2/4, posterior tibial=0/4. Results & Data ([facility]) Vital Signs (Past 12 Hours) Vital Signs Temp Pulse Pulse Resp BP BP Pulse Ox 12/04/21 07:30 36.6 C 75 18 126/69 90 12/04/21 04:00 36.6 C 62 20 120/59 L 96 12/04/21 04:00 36.7 C 67 20 171/86 H 96 12/03/21 22:47 65 12/04/21 03:08 12/03/21 23:00 36.7 C 81 20 124/69 98 O2 Del Method 12/04/21 07:30 12/04/21 04:00 Room Air 12/04/21 04:00 Room Air 12/03/21 22:47 08/08/22 03:08 Room Air 12/03/21 23:00 Room Air Laboratory Results Laboratory Results - last 24 hr 12/04/21 12/04/21 06:38 06:38 WBC 8.74 RBC 3.28 L Hgb 9.0 L Hct 29.0 L MCV 88.4 MCH 27.4 MCHC 31.0 L RDW Std Deviation 52.6 H RDW Coeff of Dmitriy 16.1 H Plt Count 208 MPV 11.1 Sodium 134 L Potassium 4.0 Chloride 94 L Carbon Dioxide 32 Anion Gap 8 BUN 57 H Creatinine 2.19 H Est Cr Clr Drug Dosing 22.3 Est GFR ( Amer) 30.7 Est GFR (Non-Af Amer) 26.5 BUN/Creatinine Ratio 26.0 H Glucose 120 H Calcium 8.7 Phosphorus 3.4 Magnesium 2.2
[2021-12-05 06:18] LABS: BUN Creatinine Ratio 26.9 (10-20); Calcium 8.5 mg/dl (8.5-10.1); Creatinine Clr Calc Pharmacy 22.6 ml/min; Est GFR (African American) 31.2 ml/min; Est GFR (Non-African American) 26.9 ml/min
[2021-12-05] MEDS: TAMSULOSIN HCL 0.4 MG CAP PO SCH (08:15)
[2021-12-05] MEDS: SPIRONOLACTONE 12.5 MG TAB PO SCH (08:15)
[2021-12-05] MEDS: FOLIC ACID 400 MCG TAB PO SCH (08:16)
[2021-12-05] MEDS: ASCORBIC ACID 500 MG TAB PO SCH (08:16)
[2021-12-05] MEDS: ZINC SULFATE 220 MG CAPSULE PO SCH (08:16)
[2021-12-05] MEDS: ROSUVASTATIN CALCIUM 5 MG TAB PO SCH (08:16)
[2021-12-05] MEDS: ADVANCED PROBIOTIC 1250 MG CAPSULE PO SCH (08:16)
[2021-12-05] MEDS: EZETIMIBE 10 MG TABLET PO SCH (08:17)
[2021-12-05] MEDS: CHOLECALCIFEROL 1,000 UNITS 25 MCG TAB PO SCH (08:17)
[2021-12-05] MEDS: carvediloL 12.5 MG TAB PO SCH ×2 (08:17→19:37)
[2021-12-05] MEDS: ASPIRIN 81 MG ECTAB PO SCH (08:18)
[2021-12-05] MEDS: MAGNESIUM OXIDE 400 MG TAB PO SCH (08:18)
[2021-12-05] MEDS: POTASSIUM CHLORIDE PWD 20 MEQ PACK PO SCH ×2 (08:19→19:39)
[2021-12-05] MEDS: RIVAROXABAN 2.5 MG TAB PO SCH ×2 (08:19→19:40)
[2021-12-05] MEDS: NITROGLYCERIN 0.4 MG/HR PATCH TD SCH (08:43)
[2021-12-05] MEDS: hydrALAZINE HCL 25 MG TAB PO SCH ×2 (08:44→19:39)
[2021-12-05] MEDS: MEROPENEM 500 MG in SYRINGE 0 ML IV SCH ×2 (08:44→19:37)
[2021-12-05] MEDS: BUMETANIDE 2 MG in SYRINGE 0 ML IV SCH ×2 (08:45→13:13)
[2021-12-05] MEDS: DOCUSATE SODIUM 100 MG CAP PO SCH ×2 (08:45→19:38)
--- NOTE | 2021-12-05 09:33 | Hospitalist Progress Note ---
Date of Service December 05, 2021 Assessment & Plan (1) Pulmonary edema: (2) Acute decompensated heart failure: Plan: This is an 86yo M with a PMH of combined systolic and diastolic heart failure, CKD 3 (baseline Cr 1.8-2), history of kidney stones, history of carotid stenosis s/p MAYELA, CAD (s/p CABG in 1995), HTN, PVD and other medical problems as below who presents with shortness of breath and found to be in decompensated heart failure. Pt also found bacteremic. Progressive SOB, developed PND overnight Saturating 100% on 2L NC on admission BNP 2,520, HS troponin 41 CXR with cardiomegaly with evidence of congestive failure and pulmonary edema. Small pleural effusions with bibasilar consolidation 2D echo from August 2021 with EF 45 to 50%, moderate size anterior and lateral wall motion abnormality with hypokinesis, aortic valve sclerosis without stenosis, grade 3 diastolic dysfunction Low sodium diet, monitor daily weights Given Bumex 1mg IV in ED. Continue Bumex 1mg IV BID - on 12/01 - will also given metolazone. Current Echo: There is no evidence of mass or vegetation. This does not rule out endocarditis. LV is normal in size. There is anterior wall akinesis. There is lateral wall akinesis. EF 40 to 45%. RV systolic function is normal. LA is severely dilated. RA size is normal. Aortic valve sclerosis moderate, without significant aortic valvular stenosis. Mild aortic regurg. There is moderate mitral regurg. There is moderate to severe tricuspid regurg. The estimated pulmonary artery systolic pressure is 50 mmHg. Cardiology consulted Continue currently with his cardiac medications and diuresis. Patient has outpatient press operator, Dr. Chavira. Continue all other outpatient cardiac meds including ASA, carvedilol, zetia, crestor. He has outpatient vascular team as well at [facility]. Reviewed records from patient's press operator, patient on Xarelto 2.5 mg twice daily in addition to aspirin 81 mg daily given the results of Compass trial. 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 - isolated on 11/28 and 11/29 blood cultx Blood cultx from 11/30 - so far negative Switched Rocephin to zosyn when blood cultx became positive 12/02 - gave x1 dose of levaquin after sp. identified on blood cultx - however pt has prolonged QT on EKG from 11/28 and 11/29-> switched to meropenem for now, await ID consult UA negat. ID consult placed ID (12/04/2021) Continue with meropenem, on discharge may possibly switch to Bactrim or ertapenem. Patient has CKD, not likely continue Bactrim. Sensitivities for ertapenem not obtained, will try to talk to micro lab. (4) Elevated troponin: Plan: Most likely demand ischemia in setting of CHF, CKD. No chest pain (5) Anemia in chronic kidney disease: Plan: Received IV iron during previous admission. Hgb 9.7, at baseline. Continue iron supplement BID (6) HTN (hypertension): Plan: Continue carvedilol and hydralazine. Nifedipine and losartan discontinued on previous admission (7) PAD (peripheral artery disease): Plan: Continue aspirin, statin (8) Chronic kidney disease: Plan: CKD III with baseline Cr 1.8-2. Currently at baseline. Monitor with daily BMP (9) BPH w urinary obs/LUTS: Plan: Continue Flomax. Bladder scan as needed Diarrhea - c.diff negative - cont. probiotics - ok to use imodium DVT Ppx: Xarelto Code status: FULL PCP: Dr. Anguiano Dispo: med-tele Admission and Anticipated Discharge Date Admission Date: November 28, 2021 Subjective Patient seen in follow-up of CHF, Pt also found bacteremic (Myroides sp.) Currently sitting up in chair, in no acute distress Reports feeling better, on RA Denies any fevers, chills, chest pain, incr. shortness of breath, palpitations, dizziness + diarrhea Blood cultures positive for gram-negative bacilli (Myroides sp.) Currently on meropenem, ID consult obtained yesterday Cardiology following Review of Systems Review of Systems: All systems reviewed & are unremarkable except as noted in Subjective Physical Exam Physical Exam: General: elderly frail M in NAD, sitting up in chair Lungs: Good air entry b/l but diminished at bases Cardiac: Normal S1/S2, no murmur Abd: ND, soft and NT, + bowel sounds MSK: b/l leg pitting edema, L>R --- L leg: erythematous and warmth to touch, dry clean bandage in place Psych: AAOx3, normal affect Results & Data Results & Data ([facility]) Vital Signs (Past 12 Hours) Vital Signs Temp Pulse Pulse Resp BP Pulse Ox O2 Del Method 12/05/21 08:28 36.4 C L 74 20 110/56 L 94 Room Air 12/05/21 02:33 36.8 C 63 20 113/54 L 97 Nasal Cannula 12/04/21 23:47 36.7 C 60 18 140/58 L 100 Nasal Cannula 12/04/21 22:17 59 L O2 Flow Rate 12/05/21 08:28 12/05/21 02:33 2 12/04/21 23:47 2 12/04/21 22:17 Laboratory Results 12/05/21 12/04/21 Range/Units 05:29 17:38 Sodium 132 L (136-145) mmol/L Potassium 4.0 (3.5-5.1) mmol/L Chloride 93 L (98-107) mmol/L Carbon Dioxide 30 (21-32) mmol/L Anion Gap 9 (3-11) BUN 58 H (6-23) mg/dl Creatinine 2.16 H (0.6-1.4) mg/dl Est Cr Clr Drug Dosing 22.6 ml/min Est GFR ( Amer) 31.2 ml/min Est GFR (Non-Af Amer) 26.9 ml/min BUN/Creatinine Ratio 26.9 H (10-20) Glucose 100 H (70-99(Fasting)) mg/dl Calcium 8.5 (8.5-10.1) mg/dl Stl C. diff Tox B Gene Negative Cdiff Gene (Neg) Medications Administered Current Inpatient Medications Acetaminophen (Acetaminophen 325 Mg Tab) 650 mg PO Q4H PRN PRN Reason: Pain or Fever Stop: 12/29/21 01:28 Ascorbic Acid (Ascorbic Acid 500 Mg Tab) 1,000 mg PO DAILY [facility] Stop: 12/29/21 08:59 Last Admin: 12/05/21 08:16 Dose: 1,000 mg Aspirin (Aspirin 81 Mg Ectab) 81 mg PO DAILY KAREN Stop: 12/29/21 08:59 Last Admin: 12/05/21 08:18 Dose: 81 mg Calamine/Phenol (Menthol-Zinc Oxide 360 Appln/120 Gm Tube) 1 appln EXT TID PRN PRN Reason: skin irritation Stop: 12/29/21 01:28 Last Admin: 12/03/21 13:49 Dose: 1 appln Carvedilol (Carvedilol 12.5 Mg Tab) 12.5 mg PO BID KAREN Stop: 12/29/21 01:28 Last Admin: 12/05/21 08:17 Dose: 12.5 mg Diphenhydramine HCl (Diphenhydramine Capsule 25 Mg Cap) 25 mg PO TID PRN PRN Reason: Itching Stop: 12/31/21 19:11 Last Admin: 12/02/21 06:36 Dose: 25 mg Docusate Sodium (Docusate Sodium 100 Mg Cap) 100 mg PO BID [facility] Stop: 12/29/21 01:28 Last Admin: 12/05/21 08:45 Dose: Not Given Ezetimibe (Ezetimibe 10 Mg Tablet) 10 mg PO DAILY [facility] Stop: 12/29/21 08:59 Last Admin: 12/05/21 08:17 Dose: 10 mg Folic Acid (Folic Acid 400 Mcg Tab) 400 mcg PO QAM KAREN Stop: 12/29/21 08:59 Last Admin: 12/05/21 08:16 Dose: 400 mcg Hydralazine HCl (Hydralazine Hcl 25 Mg Tab) 25 mg PO BID [facility] Stop: 12/29/21 01:28 Last Admin: 12/05/21 08:44 Dose: 25 mg Bumetanide 2 mg/ Syringe 8 mls @ 4 mls/min IV [id number] KAREN Stop: 01/02/22 13:59 Last Admin: 12/05/21 08:45 Dose: 4 mls/min Meropenem 500 mg/ Syringe 10 mls @ 2 mls/min IV Q12H [facility]; Protocol Stop: 12/17/21 19:59 Last Admin: 12/05/21 08:44 Dose: 2 mls/min Lactobacillus Acidophilus (Advanced Probiotic 1250 Mg Capsule) 2 cap PO DAILY [facility] Stop: 01/02/22 08:59 Last Admin: 12/05/21 08:16 Dose: 2 cap Loperamide HCl (Loperamide Hcl 2 Mg Cap) 2 mg PO Q4H PRN PRN Reason: Diarrhea Stop: 01/04/22 09:17 Magnesium Oxide (Magnesium Oxide 400 Mg Tab) 400 mg PO DAILY [facility] Stop: 12/29/21 08:59 Last Admin: 12/05/21 08:18 Dose: 400 mg Miscellaneous (Dutasteride: Order Awaiting Action) 1 each N/A QS KAREN Stop: 12/29/21 07:59 Last Admin: 12/04/21 23:43 Dose: Not Given Miscellaneous (Remove Nitro-Dur Patch) 1 each N/A DAILY@2100 KAREN Stop: 12/29/21 01:28 Last Admin: 12/04/21 19:43 Dose: 1 each Nitroglycerin (Nitroglycerin 0.4 Mg/Hr Patch) 1 patch TD QAM [facility] Stop: 12/29/21 08:59 Last Admin: 12/05/21 08:43 Dose: 1 patch Polyethylene Glycol (Polyethylene (Miralax) 17 Gm Pack) 17 gm PO DAILY PRN PRN Reason: Constipation Stop: 12/29/21 01:28 Potassium Chloride (Potassium Chloride Pwd 20 Meq Pack) 40 meq PO BID KAREN Stop: 01/01/22 08:59 Last Admin: 12/05/21 08:19 Dose: 40 meq Rivaroxaban (Rivaroxaban 2.5 Mg Tab) 2.5 mg PO BID [facility] Stop: 12/29/21 02:29 Last Admin: 12/05/21 08:19 Dose: 2.5 mg Rosuvastatin Calcium (Rosuvastatin Calcium 5 Mg Tab) 5 mg PO DAILY KAREN Stop: 12/29/21 08:59 Last Admin: 12/05/21 08:16 Dose: 5 mg Spironolactone (Spironolactone 12.5 Mg Tab) 12.5 mg PO DAILY KAREN Stop: 01/04/22 08:59 Last Admin: 12/05/21 08:15 Dose: 12.5 mg Tamsulosin HCl (Tamsulosin Hcl 0.4 Mg Cap) 0.8 mg PO DAILY KAREN Stop: 12/29/21 08:59 Last Admin: 12/05/21 08:15 Dose: 0.8 mg Triamcinolone Acetonide (Triamcinolone Acet 0.1% Cr 15 Gm Tube) 1 appln TOP TID PRN PRN Reason: itching Stop: 09/02/22 01:28 Vitamin D (Cholecalciferol 1,000 Units 25 Mcg Tab) 2,000 units PO DAILY [facility] Stop: 12/29/21 08:59 Last Admin: 12/05/21 08:17 Dose: 2,000 units Zinc Sulfate (Zinc Sulfate 220 Mg Capsule) 220 mg PO DAILY [facility] Stop: 12/29/21 08:59 Last Admin: 12/05/21 08:16 Dose: 220 mg (1) Pulmonary edema Chronicity: acute Qualified Code(s): J81.0 - Acute pulmonary edema (2) Chronic kidney disease Chronic kidney disease stage: unspecified stage Qualified Code(s): N18.9 - Chronic kidney disease, unspecified
[2021-12-05] MEDS: LOPERAMIDE HCL 2 MG CAP PO PRN ×2 (09:45→19:43)
[2021-12-05] MEDS: SACCHAROMYCES BOULARDII 250 MG CAP PO SCH (10:24)
--- NOTE | 2021-12-05 11:50 | Cardiology Progress Note ---
Date of Service December 05, 2021 Assessment & Plan (1) Acute on chronic systolic HF (heart failure): (2) Hypokalemia: (3) Bacteremia: Plan 86-year-old male with longstanding history of coronary disease, ischemic cardiomyopathy, LVEF 45- 50% on echocardiogram this admission, remote history of CABG 1995 (ORTEGA-LAD, SVG-Diagonal, SVG-LCX, SVG-RCA with cath on June 12, 2016 revealing an occluded SVG-RCA graft, all other grafts patent) presented with shortness of breath and lower extremity edema. (1) Acute on chronic systolic HF (heart failure), ischemic cardiomyopathy: - Continue IV Bumex and low dose spironolactone. No metolazone for now - Continue carvedilol, nitrates, hydralazine, aspirin, rosuvastatin, ezetimibe, Xarelto (PAD dose) 2.5 mg twice daily. (2) Hypokalemia. Potassium 4.0 mmol/L today. Continue the current regimen for now. Check chemistry panel daily. (3) Bacteremia: 4 blood cultures positive for Myroides species. Left lower extremity wound likely source. Received a single dose of levofloxacin, transitioned to meropenem due to a prolonged QT interval on EKG's. QTc 502 on 12/03/2021. As per Hospitalist. DVT prophylaxis: Continue Xarelto, PAD Dose, monitor renal function. Admission and Anticipated Discharge Date Admission Date: November 28, 2021 Supervising Physician Co-Signing Physician Notes Supervising Physician Attestation: I have personally performed a history and physical examination on the patient. I agree with the physician senior sales assistant's findings and plan as documented with the following additions. Subjective: Pt without acute complaint. Telemetry reveals SR in the 60s to 70s. Exam: CV: regular rhythm, no murmurs, 1-2+ L> R LE edema Data: Comprehensive Metabolic Panel 12/05/21 Range/Units 05:29 Sodium 132 L (136-145) mmol/L Potassium 4.0 (3.5-5.1) mmol/L Chloride 93 L (98-107) mmol/L Carbon Dioxide 30 (21-32) mmol/L BUN 58 H (6-23) mg/dl Creatinine 2.16 H (0.6-1.4) mg/dl Glucose 100 H (70-99(Fasting)) mg/dl Calcium 8.5 (8.5-10.1) mg/dl Assessment and Plan: Acute on chronic HfRef Cellulitis , bacteremia -Medications as noted. -Renal function and electrolytes are stable. DVT prophylaxis:PAD dose Xarelto Judah Del Toro DO Subjective Patient seen and examined. Chart, medications, and telemetry reviewed. Breathing is a little better. Notes increased urine output. Edema is about the same. No chest pain. No palpitations. Renal dysfunction and potassium are stable this AM Telemetry: Sinus in the 60's and 70's with occasional premature atrial contractions. Physical Exam Physical Exam: General: A&Ox3. NAD. Hard of hearing, favoring the right ear. + Hearing aid HENT: Normocephalic. Atraumatic. Eyes: PER. Conjunctiva pink, sclera clear. Neck: No carotid bruits. + JVD. Heart: RRR. Apical systolic murmur. Lungs: Absent breath sounds at the bases. Right basilar rales. No wheeze. Abdomen: +BS. Soft. Nontender. No masses or organomegaly. Extremities: 1-2+ hard indurated edema. Dressing not removed. No clubbing. No cyanosis Limited neurological examination is without focal deficits. Pulses: radial=2/4, posterior tibial=0/4. Results & Data ([facility]) Vital Signs (Past 12 Hours) Vital Signs Temp Pulse Resp BP Pulse Ox O2 Del Method O2 Flow Rate 12/05/21 11:21 36.8 C 73 18 153/76 H 100 Nasal Cannula 2 12/05/21 08:28 36.4 C L 74 20 110/56 L 94 Room Air 12/05/21 02:33 36.8 C 63 20 113/54 L 97 Nasal Cannula 2 Laboratory Results Comprehensive Metabolic Panel 12/05/21 Range/Units 05:29 Sodium 132 L (136-145) mmol/L Potassium 4.0 (3.5-5.1) mmol/L Chloride 93 L (98-107) mmol/L Carbon Dioxide 30 (21-32) mmol/L BUN 58 H (6-23) mg/dl Creatinine 2.16 H (0.6-1.4) mg/dl Glucose 100 H (70-99(Fasting)) mg/dl Calcium 8.5 (8.5-10.1) mg/dl Intake and Output 12/04/21 12/05/21 12/05/21 22:59 06:59 14:59 Intake Total 200 / 950 350 / 950 Output Total 450 / 1000 300 / 1000 Balance -250 / -50 50 / -50 Intake: Oral 200 / 950 350 / 950 Output: Urine 450 / 1000 300 / 1000 Other: Weight 76.9 kg 76.9 kg Weight Measurement Method Standing Scale Patient Weight 12/06/21 06:59 Weight 76.9 kg
[2021-12-06 07:24] LABS: Hematocrit (blood only) 28.4 % (40.1-51.0); Hemoglobin 8.9 g/dl (14.0-18.0); Mean Corpuscular Hemoglobin 27.6 pg (25.0-34.0); Mean Corpuscular Hgb Conc 31.3 g/dL (32.0-36.0); Mean Corpuscular Volume 87.9 fL (80.0-100.0); Mean Platelet Volume 11.3 fL (9.4-12.4); Platelet Count 213 K/uL (130-400); RDW Coefficient of Variation 16.2 % (11.5-14.5); RDW Standard Deviation 51.9 fL (36.4-46.3); Red Blood Count 3.23 M/uL (4.63-6.08); White Blood Count 7.37 K/ul (4.8-10.8)
[2021-12-06] MEDS: BUMETANIDE 2 MG in SYRINGE 0 ML IV SCH ×2 (07:47→13:38)
[2021-12-06] MEDS: ASCORBIC ACID 500 MG TAB PO SCH (07:47)
[2021-12-06] MEDS: EZETIMIBE 10 MG TABLET PO SCH (07:47)
[2021-12-06] MEDS: MEROPENEM 500 MG in SYRINGE 0 ML IV SCH ×2 (07:47→15:35)
[2021-12-06] MEDS: ASPIRIN 81 MG ECTAB PO SCH (07:48)
[2021-12-06] MEDS: ADVANCED PROBIOTIC 1250 MG CAPSULE PO SCH (07:48)
[2021-12-06] MEDS: ZINC SULFATE 220 MG CAPSULE PO SCH (07:49)
[2021-12-06] MEDS: ROSUVASTATIN CALCIUM 5 MG TAB PO SCH (07:49)
[2021-12-06] MEDS: carvediloL 12.5 MG TAB PO SCH ×2 (07:50→21:05)
[2021-12-06] MEDS: RIVAROXABAN 2.5 MG TAB PO SCH ×2 (07:50→21:06)
[2021-12-06] MEDS: SPIRONOLACTONE 12.5 MG TAB PO SCH (07:50)
[2021-12-06] MEDS: TAMSULOSIN HCL 0.4 MG CAP PO SCH (07:51)
[2021-12-06] MEDS: MAGNESIUM OXIDE 400 MG TAB PO SCH (07:51)
[2021-12-06] MEDS: FOLIC ACID 400 MCG TAB PO SCH (07:51)
[2021-12-06] MEDS: hydrALAZINE HCL 25 MG TAB PO SCH ×2 (07:51→21:05)
[2021-12-06] MEDS: DOCUSATE SODIUM 100 MG CAP PO SCH ×2 (07:52→21:07)
[2021-12-06] MEDS: SACCHAROMYCES BOULARDII 250 MG CAP PO SCH (07:52)
[2021-12-06] MEDS: POTASSIUM CHLORIDE PWD 20 MEQ PACK PO SCH ×2 (07:53→21:04)
[2021-12-06] MEDS: NITROGLYCERIN 0.4 MG/HR PATCH TD SCH (07:53)
[2021-12-06 07:55] LABS: BUN Creatinine Ratio 28.4 (10-20); Calcium 8.7 mg/dl (8.5-10.1); Creatinine Clr Calc Pharmacy 26.7 ml/min; Est GFR (African American) 34.9 ml/min; Est GFR (Non-African American) 30.1 ml/min; Phosphorus 3.7 mg/dl (2.5-4.9); Potassium 4.1 mmol/L (3.5-5.1)
[2021-12-06] MEDS: CHOLECALCIFEROL 1,000 UNITS 25 MCG TAB PO SCH (08:00)
--- NOTE | 2021-12-06 09:34 | Cardiology Progress Note ---
Date of Service December 06, 2021 Assessment & Plan (1) Acute on chronic systolic HF (heart failure): (2) Hypokalemia: (3) Bacteremia: Plan 86-year-old male with longstanding history of coronary disease, ischemic cardiomyopathy, LVEF 45- 50% on echocardiogram this admission, remote history of CABG 1995 (ORTEGA-LAD, SVG-Diagonal, SVG-LCX, SVG-RCA with cath on June 12, 2016 revealing an occluded SVG-RCA graft, all other grafts patent) presented with shortness of breath and lower extremity edema. (1) Acute on chronic systolic HF (heart failure), ischemic cardiomyopathy: - Continue IV Bumex and spironolactone. No metolazone for now - Continue carvedilol, nitrates, hydralazine, aspirin, rosuvastatin, ezetimibe, Xarelto (PAD dose) 2.5 mg twice daily. (2) Hypokalemia. Potassium 4.1 mmol/L today. Continue the current regimen for now. Daily chemistry panels needed. (3) Hyponatremia. Improved, 132->134 mmol/L this AM. Follow. Continue to hold metolazone. (4) Bacteremia: 4 blood cultures positive for Myroides species. Left lower extremity wound likely source. Received a single dose of levofloxacin, transitioned to meropenem due to a prolonged QT interval on EKG's. QTc 502 on 12/03/2021. As per Hospitalist. DVT prophylaxis: Continue Xarelto, PAD Dose, monitor renal function. Admission and Anticipated Discharge Date Admission Date: November 28, 2021 Supervising Physician Co-Signing Physician Notes Supervising Physician Attestation: I have personally performed a history and physical examination on the patient. I agree with the physician accountant assistant's findings and plan as documented with the following additions. Subjective: Patient resting comfortably. Exam: Ongoing lower extremity edema, lungs clear Data: Creatinine 1.97, potassium 4.1 Assessment and Plan: As noted above, continue IV Bumex DVT prophylaxis: PAD dose Xarelto Judah Del Toro, DO Subjective Patient seen and examined. Chart, medications, and telemetry reviewed. Everyday seems to better in regards to his breathing and fluid retention. Ongoing orthopnea. He would like to be considered for supplemental oxygen at night. No chest pain. No palpitations. Telemetry: Sinus in the 60's with occasional premature atrial contractions. Physical Exam Physical Exam: General: A&Ox3. NAD. Hard of hearing HENT: Normocephalic. Atraumatic. Eyes: PER. Conjunctiva pink, sclera clear. Neck: No carotid bruits. + JVD. Heart: RRR. Apical systolic murmur. Lungs: Absent breath sounds at the bases, 1/3 to [address]. Right basilar rales. No wheeze. Abdomen: +BS. Soft. Nontender. No masses or organomegaly. Extremities: 1-2+ edema. Dressing not removed from the left lower extremity. No clubbing. No cyanosis Limited neurological examination is without focal deficits. Pulses: radial=2/4, posterior tibial=0/4. Results & Data ([facility]) Vital Signs (Past 12 Hours) Vital Signs Temp Pulse Pulse Resp BP BP Pulse Ox 12/06/21 08:17 36.8 C 61 20 113/47 L 96 12/06/21 07:11 66 12/06/21 02:25 36.9 C 66 18 107/48 L 98 12/05/21 22:17 63 12/05/21 23:07 37.0 C 56 L 18 115/70 99 O2 Del Method O2 Flow Rate 12/06/21 08:17 12/06/21 07:11 12/06/21 02:25 Room Air 12/05/21 22:17 12/05/21 23:07 Nasal Cannula 2 Laboratory Results CBC 12/06/21 Range/Units 06:48 WBC 7.37 (4.8-10.8) K/ul RBC 3.23 L (4.63-6.08) M/uL Hgb 8.9 L (14.0-18.0) g/dl Hct 28.4 L (40.1-51.0) % Plt Count 213 (130-400) K/uL Comprehensive Metabolic Panel 12/06/21 Range/Units 06:48 Sodium 134 L (136-145) mmol/L Potassium 4.1 (3.5-5.1) mmol/L Chloride 94 L (98-107) mmol/L Carbon Dioxide 32 (21-32) mmol/L BUN 56 H (6-23) mg/dl Creatinine 1.97 H (0.6-1.4) mg/dl Glucose 104 H (70-99(Fasting)) mg/dl Calcium 8.7 (8.5-10.1) mg/dl Intake and Output 12/05/21 12/06/21 12/06/21 22:59 06:59 14:59 Intake Total 150 / 585 120 / 585 Output Total 950 / 1700 150 / 1700 Balance -800 / -1115 -30 / -1115 Intake: Oral 150 / 585 120 / 585 Output: Urine 950 / 1700 150 / 1700 Other: Weight 76.6 kg Weight Measurement Method Built in [facility]
--- NOTE | 2021-12-06 13:28 | Hospitalist Progress Note ---
Date of Service December 06, 2021 Assessment & Plan (1) Acute decompensated heart failure: Plan: This is an 86yo M with a PMH of combined systolic and diastolic heart failure, CKD 3 (baseline Cr 1.8-2), history of kidney stones, history of carotid stenosis s/p MAYELA, CAD (s/p CABG in 1995), HTN, PVD and other medical problems as below who presents with shortness of breath and found to be in decompensated heart failure. Pt also found bacteremic. Saturating 100% on 2L NC on admission BNP 2,520, HS troponin 41 CXR with cardiomegaly with evidence of congestive failure and pulmonary edema. Small pleural effusions with bibasilar consolidation 2D echo from August 2021 with EF 45 to 50%, moderate size anterior and lateral wall motion abnormality with hypokinesis, aortic valve sclerosis without stenosis, grade 3 diastolic dysfunction Low sodium diet, monitor daily weights Diuretics adjusted by cardiology-now on Bumex 2mg BID Patient has outpatient quarter section ironer, Dr. Chavira. Continue all other outpatient cardiac meds including ASA, carvedilol, zetia, crestor. 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 - isolated on 11/28 and 11/29 blood cultx Blood cultx from 11/30 - so far negative switched to meropenem for now, await ID consult (3) Elevated troponin: Plan: Most likely demand ischemia in setting of CHF, CKD. No chest pain (4) Anemia in chronic kidney disease: Plan: chronic, stable. Received IV iron during previous admission. Hgb 9.7, at baseline. Continue iron supplement BID (5) HTN (hypertension): Plan: chronic, stable. Continue carvedilol and hydralazine. Nifedipine and losartan discontinued on previous admission (6) PAD (peripheral artery disease): Plan: chronic, stable. Continue aspirin, statin (7) Chronic kidney disease: Plan: chronic, stable. CKD III with baseline Cr 1.8-2. Currently at baseline. Monitor with daily BMP (8) BPH w urinary obs/LUTS: Plan: chronic, stable. Continue Flomax. Bladder scan as needed (9) DVT prophylaxis: Plan: Xarelto Code status: FULL PCP: Dr. Anguiano Dispo: med-tele. To home likely tomorrow when final ID recs come through. Cecy Riojas DO [facility] Hospitalist Admission and Anticipated Discharge Date Admission Date: November 28, 2021 Subjective 86-year-old man admitted for acute on chronic systolic heart failure and left leg cellulitis. He is continue to receive diuretics with improvement and reports feeling better today. Echocardiogram performed this admission revealing EF 40 to 45%, pulmonary hypertension and valve disease. Patient found to have my royalties and blood and placed on broad-spectrum antibiotics. There was no evidence of vegetation on TTE. Infectious disease was consulted and ultimately is recommending meropenem for total 14-day treatment. Patient's leg is improved he is currently eating lunch and feeling well overall. Plans are for him to go home at discharge. Currently denies any shortness of breath or chest pain. Review of Systems Review of Systems: All systems reviewed negative except as indicated above. Physical Exam Physical Exam: Patient declined full physical exam as he was eating lunch. CONSTITUTIONAL: WNWD, vitals as above, generally well-appearing, NAD RESPIRATORY: normal respiratory effort MUSCULOSKELETAL: sitting up in chair without issues, eating independently PSYCH: alert and answering questions appropriately Results & Data Results & Data ([facility]) Vital Signs (Past 12 Hours) Vital Signs Temp Pulse Pulse Resp BP BP Pulse Ox 12/06/21 11:32 36.5 C 66 20 103/60 100 12/06/21 08:00 12/06/21 08:17 36.8 C 61 20 113/47 L 96 12/06/21 07:11 66 12/06/21 02:25 36.9 C 66 18 107/48 L 98 O2 Del Method 12/06/21 11:32 12/06/21 08:00 Room Air 12/06/21 08:17 12/06/21 07:11 12/06/21 02:25 Room Air Laboratory Results Short CBC 12/06/21 Range/Units 06:48 WBC 7.37 (4.8-10.8) K/ul Hgb 8.9 L (14.0-18.0) g/dl Hct 28.4 L (40.1-51.0) % Plt Count 213 (130-400) K/uL BMP 12/06/21 06:48 Sodium 134 L Potassium 4.1 Chloride 94 L Carbon Dioxide 32 BUN 56 H Creatinine 1.97 H Glucose 104 H Calcium 8.7 Medications Administered Current Inpatient Medications Acetaminophen (Acetaminophen 325 Mg Tab) 650 mg PO Q4H PRN PRN Reason: Pain or Fever Stop: 12/29/21 01:28 Ascorbic Acid (Ascorbic Acid 500 Mg Tab) 1,000 mg PO DAILY KAREN Stop: 12/29/21 08:59 Last Admin: 12/06/21 07:47 Dose: 1,000 mg Aspirin (Aspirin 81 Mg Ectab) 81 mg PO DAILY KAREN Stop: 12/29/21 08:59 Last Admin: 12/06/21 07:48 Dose: 81 mg Calamine/Phenol (Menthol-Zinc Oxide 360 Appln/120 Gm Tube) 1 appln EXT TID PRN PRN Reason: skin irritation Stop: 12/29/21 01:28 Last Admin: 12/03/21 13:49 Dose: 1 appln Carvedilol (Carvedilol 12.5 Mg Tab) 12.5 mg PO BID KAREN Stop: 12/29/21 01:28 Last Admin: 12/06/21 07:50 Dose: 12.5 mg Diphenhydramine HCl (Diphenhydramine Capsule 25 Mg Cap) 25 mg PO TID PRN PRN Reason: Itching Stop: 12/31/21 19:11 Last Admin: 12/02/21 06:36 Dose: 25 mg Docusate Sodium (Docusate Sodium 100 Mg Cap) 100 mg PO BID KAREN Stop: 12/29/21 01:28 Last Admin: 12/06/21 07:52 Dose: Not Given Ezetimibe (Ezetimibe 10 Mg Tablet) 10 mg PO DAILY KAREN Stop: 12/29/21 08:59 Last Admin: 12/06/21 07:47 Dose: 10 mg Folic Acid (Folic Acid 400 Mcg Tab) 400 mcg PO QAM KAREN Stop: 12/29/21 08:59 Last Admin: 12/06/21 07:51 Dose: 400 mcg Hydralazine HCl (Hydralazine Hcl 25 Mg Tab) 25 mg PO BID KAREN Stop: 12/29/21 01:28 Last Admin: 12/06/21 07:51 Dose: 25 mg Bumetanide 2 mg/ Syringe 8 mls @ 4 mls/min IV [id number] [facility] Stop: 01/02/22 13:59 Last Admin: 12/06/21 07:47 Dose: 4 mls/min Meropenem 500 mg/ Syringe 10 mls @ 2 mls/min IV Q8H [facility]; Protocol Stop: 12/17/21 20:59 Lactobacillus Acidophilus (Advanced Probiotic 1250 Mg Capsule) 2 cap PO DAILY KAREN Stop: 01/02/22 08:59 Last Admin: 12/06/21 07:48 Dose: 2 cap Loperamide HCl (Loperamide Hcl 2 Mg Cap) 2 mg PO Q4H PRN PRN Reason: Diarrhea Stop: 01/04/22 09:17 Last Admin: 12/05/21 19:43 Dose: 2 mg Magnesium Oxide (Magnesium Oxide 400 Mg Tab) 400 mg PO DAILY [facility] Stop: 12/29/21 08:59 Last Admin: 12/06/21 07:51 Dose: 400 mg Miscellaneous (Dutasteride: Order Awaiting Action) 1 each N/A QS [facility] Stop: 12/29/21 07:59 Last Admin: 12/06/21 07:59 Dose: Not Given Miscellaneous (Remove Nitro-Dur Patch) 1 each N/A DAILY@2100 [facility] Stop: 12/29/21 01:28 Last Admin: 12/05/21 21:04 Dose: 1 each Nitroglycerin (Nitroglycerin 0.4 Mg/Hr Patch) 1 patch TD QAM [facility] Stop: 12/29/21 08:59 Last Admin: 12/06/21 07:53 Dose: 1 patch Polyethylene Glycol (Polyethylene (Miralax) 17 Gm Pack) 17 gm PO DAILY PRN PRN Reason: Constipation Stop: 12/29/21 01:28 Potassium Chloride (Potassium Chloride Pwd 20 Meq Pack) 40 meq PO BID [facility] Stop: 01/01/22 08:59 Last Admin: 12/06/21 07:53 Dose: 40 meq Rivaroxaban (Rivaroxaban 2.5 Mg Tab) 2.5 mg PO BID [facility] Stop: 12/29/21 02:29 Last Admin: 12/06/21 07:50 Dose: 2.5 mg Rosuvastatin Calcium (Rosuvastatin Calcium 5 Mg Tab) 5 mg PO DAILY [facility] Stop: 12/29/21 08:59 Last Admin: 12/06/21 07:49 Dose: 5 mg Saccharomyces Boulardii (Saccharomyces Boulardii 250 Mg Cap) 250 mg PO DAILY [facility]EN Stop: 01/04/22 09:44 Last Admin: 12/06/21 07:52 Dose: 250 mg Spironolactone (Spironolactone 12.5 Mg Tab) 12.5 mg PO DAILY KAREN Stop: 01/04/22 08:59 Last Admin: 12/06/21 07:50 Dose: 12.5 mg Tamsulosin HCl (Tamsulosin Hcl 0.4 Mg Cap) 0.8 mg PO DAILY KAREN Stop: 12/29/21 08:59 Last Admin: 12/06/21 07:51 Dose: 0.8 mg Triamcinolone Acetonide (Triamcinolone Acet 0.1% Cr 15 Gm Tube) 1 appln TOP TID PRN PRN Reason: itching Stop: 12/29/21 01:28 Vitamin D (Cholecalciferol 1,000 Units 25 Mcg Tab) 2,000 units PO DAILY KAREN Stop: 12/29/21 08:59 Last Admin: 12/06/21 08:00 Dose: 2,000 units Zinc Sulfate (Zinc Sulfate 220 Mg Capsule) 220 mg PO DAILY KAREN Stop: 12/29/21 08:59 Last Admin: 12/06/21 07:49 Dose: 220 mg (1) Chronic kidney disease Chronic kidney disease stage: unspecified stage Qualified Code(s): N18.9 - Chronic kidney disease, unspecified
[2021-12-06] MEDS: LOPERAMIDE HCL 2 MG CAP PO PRN (13:42)
[2021-12-07] MEDS: MEROPENEM 500 MG in SYRINGE 0 ML IV SCH ×4 (01:13→23:56)
[2021-12-07] MEDS: BUMETANIDE 2 MG in SYRINGE 0 ML IV SCH ×2 (06:01→14:12)
[2021-12-07] MEDS: ASCORBIC ACID 500 MG TAB PO SCH (09:25)
[2021-12-07] MEDS: carvediloL 12.5 MG TAB PO SCH ×2 (09:26→20:06)
[2021-12-07] MEDS: DOCUSATE SODIUM 100 MG CAP PO SCH ×2 (09:26→20:10)
[2021-12-07] MEDS: CHOLECALCIFEROL 1,000 UNITS 25 MCG TAB PO SCH (09:26)
[2021-12-07] MEDS: EZETIMIBE 10 MG TABLET PO SCH (09:26)
[2021-12-07] MEDS: MAGNESIUM OXIDE 400 MG TAB PO SCH (09:27)
[2021-12-07] MEDS: RIVAROXABAN 2.5 MG TAB PO SCH ×2 (09:27→20:05)
[2021-12-07] MEDS: hydrALAZINE HCL 25 MG TAB PO SCH ×2 (09:27→20:07)
[2021-12-07] MEDS: ADVANCED PROBIOTIC 1250 MG CAPSULE PO SCH (09:27)
[2021-12-07] MEDS: FOLIC ACID 400 MCG TAB PO SCH (09:27)
[2021-12-07] MEDS: NITROGLYCERIN 0.4 MG/HR PATCH TD SCH (09:27)
[2021-12-07] MEDS: POTASSIUM CHLORIDE PWD 20 MEQ PACK PO SCH ×2 (09:27→20:05)
[2021-12-07] MEDS: ROSUVASTATIN CALCIUM 5 MG TAB PO SCH (09:28)
[2021-12-07] MEDS: SPIRONOLACTONE 12.5 MG TAB PO SCH (09:28)
[2021-12-07] MEDS: TAMSULOSIN HCL 0.4 MG CAP PO SCH (09:28)
[2021-12-07] MEDS: ZINC SULFATE 220 MG CAPSULE PO SCH (09:28)
[2021-12-07] MEDS: SACCHAROMYCES BOULARDII 250 MG CAP PO SCH (09:28)
[2021-12-07 09:47] LABS: Hematocrit (blood only) 30.5 % (40.1-51.0); Hemoglobin 9.4 g/dl (14.0-18.0); Mean Corpuscular Hemoglobin 27.7 pg (25.0-34.0); Mean Corpuscular Hgb Conc 30.8 g/dL (32.0-36.0); Mean Platelet Volume 10.3 fL (9.4-12.4); Platelet Count 219 K/uL (130-400); RDW Coefficient of Variation 16.3 % (11.5-14.5); RDW Standard Deviation 53.5 fL (36.4-46.3); Red Blood Count 3.39 M/uL (4.63-6.08); White Blood Count 8.23 K/ul (4.8-10.8)
[2021-12-07] MEDS: ASPIRIN 81 MG ECTAB PO SCH (09:49)
[2021-12-07 10:06] LABS: BUN Creatinine Ratio 26.7 (10-20); Calcium 8.8 mg/dl (8.5-10.1); Creatinine Clr Calc Pharmacy 25.3 ml/min; Est GFR (African American) 32.3 ml/min; Est GFR (Non-African American) 27.9 ml/min; Potassium 4.1 mmol/L (3.5-5.1)
--- NOTE | 2021-12-07 11:15 | Cardiology Progress Note ---
Date of Service December 07, 2021 Assessment & Plan (1) Acute on chronic systolic HF (heart failure): (2) Hypokalemia: (3) Bacteremia: Plan 86-year-old male with longstanding history of coronary disease, ischemic cardiomyopathy, LVEF 45- 50% on echocardiogram this admission, remote history of CABG 1995 (ORTEGA-LAD, SVG-Diagonal, SVG-LCX, SVG-RCA with cath on June 12, 2016 revealing an occluded SVG-RCA graft, all other grafts patent). Patient presented with acute on chronic shortness of breath and increased lower extremity edema representing acute decompensated systolic and diastolic congestive heart failure exacerbation. (1) Acute on chronic systolic and diastolic congestive heart failure, ischemic cardiomyopathy: - Continue IV Bumex and spironolactone. No metolazone - Continue carvedilol, nitrates, hydralazine, aspirin, rosuvastatin, ezetimibe, Xarelto (PAD dose) 2.5 mg twice daily. (2) Hypokalemia. Potassium stable at 4.1 mmol/L today. Continue the current regimen for now. Daily chemistry panels needed. Patient will require reduction in oral potassium dosing when switched back to oral diuretics noting the additon of low dose spironolactone this admission. (3) Hyponatremia. Stable at 134 mmol/L this AM. Follow. Continue to hold metolazone. (4) Bacteremia: 4 blood cultures positive for Myroides species. Left lower extremity wound likely source. Received a single dose of levofloxacin, transitioned to meropenem due to a prolonged QT interval on EKG's. QTc 502 on 12/03/2021. As per Hospitalist. DVT prophylaxis: Continue Xarelto, PAD Dose, monitor renal function. Admission and Anticipated Discharge Date Admission Date: November 28, 2021 Supervising Physician Co-Signing Physician Notes Supervising Physician Attestation: I have personally performed a history and physical examination on the patient. I agree with the physician promotions assistant's findings and plan as documented with the following additions. Subjective: No acute complaints Exam: ongoing L > R LE edema, subtle improvement Data: as noted Assessment and Plan: Agree with assessment and plan. Possible discharge in 24 hrs once plan for home IV antibiotic therapy arranged. Judah Del Toro, DO Subjective Patient seen and examined. Chart, medications, and telemetry reviewed. Breathing is a slight bit better today. Stable orthopnea. Ongoing peripheral edema. No chest pain. No palpitations. Telemetry: Sinus in the 60's-70's with occasional atrial and ventricular ectopy. I's/O's are not accurately recorded, negative balance the last 4 days (-1,095 mL's, -50 mL's, -1115 mL's, -250 mL's thus far today) Physical Exam Physical Exam: General: A&Ox3. NAD. Hard of hearing HENT: Normocephalic. Atraumatic. Eyes: PER. Conjunctiva pink, sclera clear. Neck: No carotid bruits. + JVD. Heart: RRR. Apical systolic murmur. Lungs: Absent breath sounds at the bases, 1/[address] Bibasilar rales. No wheeze. Abdomen: +BS. Soft. Nontender. No masses or organomegaly. Extremities: 1-2+ hard edema. Dressing not removed from the left lower extremity. No clubbing. No cyanosis Limited neurological examination is without focal deficits. Pulses: radial=2/4, posterior tibial=0/4. Results & Data ([facility]) Vital Signs (Past 12 Hours) Vital Signs Temp Pulse Pulse Pulse Pulse Pulse Resp 12/07/21 10:57 36.6 C 62 18 12/07/21 10:19 84 71 73 12/07/21 08:27 36.7 C 78 18 12/07/21 07:35 56 L 12/07/21 02:50 36.6 C 62 18 12/06/21 23:24 36.9 C 52 L 18 Resp Resp Resp BP Pulse Ox Pulse Ox Pulse Ox 12/07/21 10:57 114/54 L 96 12/07/21 10:19 18 18 16 95 97 12/07/21 08:27 122/71 92 12/07/21 07:35 12/07/21 02:50 105/61 90 12/06/21 23:24 121/65 96 Pulse Ox O2 Del Method O2 Flow Rate 12/07/21 10:57 Room Air 12/07/21 10:19 96 12/07/21 08:27 Room Air 12/07/21 07:35 12/07/21 02:50 Room Air 12/06/21 23:24 Nasal Cannula 4 Laboratory Results CBC 12/07/21 Range/Units 09:40 WBC 8.23 (4.8-10.8) K/ul RBC 3.39 L (4.63-6.08) M/uL Hgb 9.4 L (14.0-18.0) g/dl Hct 30.5 L (40.1-51.0) % Plt Count 219 (130-400) K/uL Comprehensive Metabolic Panel 12/07/21 Range/Units 09:40 Sodium 134 L (136-145) mmol/L Potassium 4.1 (3.5-5.1) mmol/L Chloride 95 L (98-107) mmol/L Carbon Dioxide 32 (21-32) mmol/L BUN 56 H (6-23) mg/dl Creatinine 2.10 H (0.6-1.4) mg/dl Glucose 187 H (70-99(Fasting)) mg/dl Calcium 8.8 (8.5-10.1) mg/dl Intake and Output 12/06/21 12/07/21 12/07/21 22:59 06:59 14:59 Intake Total 275 / 750 200 / 750 Output Total 150 / 1000 250 / 1000 Balance 125 / -250 -50 / -250 Intake: Oral 275 / 750 200 / 750 Output: Urine 150 / 1000 250 / 1000 Other: Weight 78.3 kg Weight Measurement Method Built in [facility]
--- NOTE | 2021-12-07 20:57 | Hospitalist Progress Note ---
Date of Service December 07, 2021 Assessment & Plan (1) Acute decompensated heart failure: Plan: This is an 86yo M with a PMH of combined systolic and diastolic heart failure, CKD 3 (baseline Cr 1.8-2), history of kidney stones, history of carotid stenosis s/p MAYELA, CAD (s/p CABG in 1995), HTN, PVD and other medical problems as below who presents with shortness of breath and found to be in decompensated heart failure. Pt also found bacteremic. Saturating 100% on 2L NC on admission BNP 2,520, HS troponin 41 CXR with cardiomegaly with evidence of congestive failure and pulmonary edema. Small pleural effusions with bibasilar consolidation 2D echo from August 2021 with EF 45 to 50%, moderate size anterior and lateral wall motion abnormality with hypokinesis, aortic valve sclerosis without stenosis, grade 3 diastolic dysfunction Two step performed today (12/07) and patient has no needs. However, he is using it when he lies down to sleep and reports that he needs it during sleep. Overnight oximetry test ordered. 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 Chavira. Continue all other outpatient cardiac meds including ASA, carvedilol, zetia, crestor. 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 - isolated on 11/28 and 11/29 blood cultx Blood cultx from 11/30 - so far negative switched to meropenem for now and will continue this for total 14 days. will need to followup with wound clinic for his wound on his leg. (3) Elevated troponin: Plan: Most likely demand ischemia in setting of CHF, CKD. No chest pain (4) Anemia in chronic kidney disease: Plan: chronic, stable. Received IV iron during previous admission. Hgb 9.7, at baseline. Continue iron supplement BID (5) HTN (hypertension): Plan: chronic, stable. Continue carvedilol and hydralazine. Nifedipine and losartan discontinued on previous admission (6) PAD (peripheral artery disease): Plan: chronic, stable. Continue aspirin, statin (7) Chronic kidney disease: Plan: chronic, stable. CKD III with baseline Cr 1.8-2. Currently at baseline. Monitor with daily BMP (8) BPH w urinary obs/LUTS: Plan: chronic, stable. Continue Flomax. Bladder scan as needed (9) DVT prophylaxis: Plan: Xarelto Code status: FULL PCP: Dr. Anguiano Dispo: med-tele. To home with home health tomorrow to continue home IV infusions. US guided IV was placed today in preparation for this. Cecy Riojas DO [facility] Hospitalist Admission and Anticipated Discharge Date Admission Date: November 28, 2021 Subjective 86-year-old man admitted for acute on chronic systolic heart failure and left leg cellulitis. He is continue to receive diuretics with improvement and reports feeling better today. Echocardiogram performed this admission revealing EF 40 to 45%, pulmonary hypertension and valve disease. Patient found to have Myroides species in blood and placed on broad-spectrum antibiotics. There was no evidence of vegetation on TTE. Infectious disease was consulted and ultimately is recommending meropenem for total 14-day treatment. Patient's leg is improved. Currently denies any shortness of breath or chest pain. We discussed plans for him to go home and he explained that he doesn't know any of his meds and defers all plans and instructions to his niece who doesn't live with him. Coordinated care with Genan from case management. Review of Systems Review of Systems: All systems reviewed negative except as indicated above. Physical Exam Physical Exam: CONSTITUTIONAL: WNWD, vitals as above, generally well- appearing, NAD EYES: normal conjunctivae, no scleral icterus ENT: external ear and nose normal, MMM NECK: trachea midline RESPIRATORY: clear to auscultation bilaterally, no crackles, rales or wheezes, normal respiratory effort CARDIOVASCULAR: regular rate and rhythm, S1 and 2 heard without murmurs, gallops or rubs, no JVD, no peripheral edema CHEST: inspection of chest was normal GASTROINTESTINAL: soft, nontender, ND, no guarding MUSCULOSKELETAL: strength 5/5 throughout, head is normocephalic and atraumatic SKIN: warm and dry NEUROLOGIC: CN 2-12 grossly intact, no sensory deficit, normal cognition, normal speech, no tremor PSYCHIATRIC: alert cooperative and oriented to person, place and time. Results & Data Results & Data ([facility]) Vital Signs (Past 12 Hours) Vital Signs Temp Pulse Pulse Pulse Pulse Pulse Resp 12/07/21 18:46 36.8 C 58 L 18 12/07/21 15:51 58 L 12/07/21 15:47 36.5 C 105 H 18 12/07/21 09:00 12/07/21 10:57 36.6 C 62 18 12/07/21 10:19 84 71 73 Resp Resp Resp BP Pulse Ox Pulse Ox Pulse Ox 12/07/21 18:46 108/61 93 12/07/21 15:51 12/07/21 15:47 105/54 L 95 12/07/21 09:00 12/07/21 10:57 114/54 L 96 12/07/21 10:19 18 18 16 95 97 Pulse Ox O2 Del Method 12/07/21 18:46 Room Air 12/07/21 15:51 12/07/21 15:47 Room Air 12/07/21 09:00 Room Air 12/07/21 10:57 Room Air 12/07/21 10:19 96 Laboratory Results Short CBC 12/07/21 Range/Units 09:40 WBC 8.23 (4.8-10.8) K/ul Hgb 9.4 L (14.0-18.0) g/dl Hct 30.5 L (40.1-51.0) % Plt Count 219 (130-400) K/uL BMP 12/07/21 09:40 Sodium 134 L Potassium 4.1 Chloride 95 L Carbon Dioxide 32 BUN 56 H Creatinine 2.10 H Glucose 187 H Calcium 8.8 Medications Administered Current Inpatient Medications Acetaminophen (Acetaminophen 325 Mg Tab) 650 mg PO Q4H PRN PRN Reason: Pain or Fever Stop: 12/29/21 01:28 Ascorbic Acid (Ascorbic Acid 500 Mg Tab) 1,000 mg PO DAILY KAREN Stop: 12/29/21 08:59 Last Admin: 12/07/21 09:25 Dose: 1,000 mg Aspirin (Aspirin 81 Mg Ectab) 81 mg PO DAILY [facility]EN Stop: 12/29/21 08:59 Last Admin: 12/07/21 09:49 Dose: 81 mg Calamine/Phenol (Menthol-Zinc Oxide 360 Appln/120 Gm Tube) 1 appln EXT TID PRN PRN Reason: skin irritation Stop: 12/29/21 01:28 Last Admin: 12/03/21 13:49 Dose: 1 appln Carvedilol (Carvedilol 12.5 Mg Tab) 12.5 mg PO BID [facility] Stop: 12/29/21 01:28 Last Admin: 12/07/21 20:06 Dose: 12.5 mg Diphenhydramine HCl (Diphenhydramine Capsule 25 Mg Cap) 25 mg PO TID PRN PRN Reason: Itching Stop: 12/31/21 19:11 Last Admin: 12/02/21 06:36 Dose: 25 mg Docusate Sodium (Docusate Sodium 100 Mg Cap) 100 mg PO BID [facility] Stop: 12/29/21 01:28 Last Admin: 12/07/21 20:10 Dose: 100 mg Ezetimibe (Ezetimibe 10 Mg Tablet) 10 mg PO DAILY [facility] Stop: 12/29/21 08:59 Last Admin: 12/07/21 09:26 Dose: 10 mg Folic Acid (Folic Acid 400 Mcg Tab) 400 mcg PO QAM [facility] Stop: 12/29/21 08:59 Last Admin: 12/07/21 09:27 Dose: 400 mcg Hydralazine HCl (Hydralazine Hcl 25 Mg Tab) 25 mg PO BID [facility] Stop: 12/29/21 01:28 Last Admin: 12/07/21 20:07 Dose: 25 mg Bumetanide 2 mg/ Syringe 8 mls @ 4 mls/min IV [id number] [facility] Stop: 01/02/22 13:59 Last Admin: 12/07/21 14:12 Dose: 4 mls/min Meropenem 500 mg/ Syringe 10 mls @ 2 mls/min IV Q8H [facility]; Protocol Stop: 12/17/21 20:59 Last Admin: 12/07/21 16:00 Dose: 2 mls/min Lactobacillus Acidophilus (Advanced Probiotic 1250 Mg Capsule) 2 cap PO DAILY [facility] Stop: 01/02/22 08:59 Last Admin: 12/07/21 09:27 Dose: 2 cap Loperamide HCl (Loperamide Hcl 2 Mg Cap) 2 mg PO Q4H PRN PRN Reason: Diarrhea Stop: 01/04/22 09:17 Last Admin: 12/06/21 13:42 Dose: 2 mg Magnesium Oxide (Magnesium Oxide 400 Mg Tab) 400 mg PO DAILY [facility] Stop: 12/29/21 08:59 Last Admin: 12/07/21 09:27 Dose: 400 mg Miscellaneous (Dutasteride: Order Awaiting Action) 1 each N/A QS [facility] Stop: 12/29/21 07:59 Last Admin: 12/07/21 16:00 Dose: Not Given Miscellaneous (Remove Nitro-Dur Patch) 1 each N/A DAILY@2100 [facility] Stop: 12/29/21 01:28 Last Admin: 12/07/21 20:10 Dose: 1 each Nitroglycerin (Nitroglycerin 0.4 Mg/Hr Patch) 1 patch TD QAM [facility] Stop: 12/29/21 08:59 Last Admin: 12/07/21 09:27 Dose: 1 patch Polyethylene Glycol (Polyethylene (Miralax) 17 Gm Pack) 17 gm PO DAILY PRN PRN Reason: Constipation Stop: 12/29/21 01:28 Potassium Chloride (Potassium Chloride Pwd 20 Meq Pack) 40 meq PO BID [facility] Stop: 01/01/22 08:59 Last Admin: 12/07/21 20:05 Dose: 40 meq Rivaroxaban (Rivaroxaban 2.5 Mg Tab) 2.5 mg PO BID [facility] Stop: 12/29/21 02:29 Last Admin: 12/07/21 20:05 Dose: 2.5 mg Rosuvastatin Calcium (Rosuvastatin Calcium 5 Mg Tab) 5 mg PO DAILY [facility] Stop: 12/29/21 08:59 Last Admin: 12/07/21 09:28 Dose: 5 mg Saccharomyces Boulardii (Saccharomyces Boulardii 250 Mg Cap) 250 mg PO DAILY [facility] Stop: 01/04/22 09:44 Last Admin: 12/07/21 09:28 Dose: 250 mg Spironolactone (Spironolactone 12.5 Mg Tab) 12.5 mg PO DAILY [facility] Stop: 01/04/22 08:59 Last Admin: 12/07/21 09:28 Dose: 12.5 mg Tamsulosin HCl (Tamsulosin Hcl 0.4 Mg Cap) 0.8 mg PO DAILY [facility] Stop: 12/29/21 08:59 Last Admin: 12/07/21 09:28 Dose: 0.8 mg Triamcinolone Acetonide (Triamcinolone Acet 0.1% Cr 15 Gm Tube) 1 appln TOP TID PRN PRN Reason: itching Stop: 12/29/21 01:28 Vitamin D (Cholecalciferol 1,000 Units 25 Mcg Tab) 2,000 units PO DAILY [facility]EN Stop: 12/29/21 08:59 Last Admin: 12/07/21 09:26 Dose: 2,000 units Zinc Sulfate (Zinc Sulfate 220 Mg Capsule) 220 mg PO DAILY [facility] Stop: 12/29/21 08:59 Last Admin: 12/07/21 09:28 Dose: 220 mg (1) Chronic kidney disease Chronic kidney disease stage: unspecified stage Qualified Code(s): N18.9 - Chronic kidney disease, unspecified
--- NOTE | 2021-12-08 05:35 | Electrocardiogram Report ---
Test Reason : Blood Pressure : / mmHG Vent. Rate : 063 BPM Atrial Rate : 063 BPM P-R Int : 184 ms QRS Dur : 092 ms QT Int : 442 ms P-R-T Axes : 026 020 177 degrees QTc Int : 452 ms Sinus rhythm with Premature atrial complexes Possible Left atrial enlargement Poor R wave progression, consider anterior MN vs. lead placement vs. LVH T wave abnormality, consider lateral ischemia Abnormal ECG When compared with ECG of 03-DEC-2021 07:23, Premature ventricular complexes are no longer Present Confirmed by Nura Whitfield ([id number]) on 12/08/2021 5:35:08 AM Referred By: REFERRED SELF Confirmed By:Nura Whitfield
[2021-12-08] MEDS: BUMETANIDE 2 MG in SYRINGE 0 ML IV SCH ×2 (06:17→13:38)
[2021-12-08 07:36] LABS: Hematocrit (blood only) 30.9 % (40.1-51.0); Hemoglobin 9.6 g/dl (14.0-18.0); Mean Corpuscular Hemoglobin 27.7 pg (25.0-34.0); Mean Corpuscular Hgb Conc 31.1 g/dL (32.0-36.0); Mean Platelet Volume 11.3 fL (9.4-12.4); Platelet Count 246 K/uL (130-400); RDW Coefficient of Variation 16.5 % (11.5-14.5); Red Blood Count 3.47 M/uL (4.63-6.08); White Blood Count 9.67 K/ul (4.8-10.8)
[2021-12-08 08:00] LABS: BUN Creatinine Ratio 26.3 (10-20); Calcium 8.9 mg/dl (8.5-10.1); Creatinine Clr Calc Pharmacy 25.7 ml/min; Est GFR (African American) 33.2 ml/min; Est GFR (Non-African American) 28.7 ml/min; Potassium 4.5 mmol/L (3.5-5.1)
[2021-12-08] MEDS: MEROPENEM 500 MG in SYRINGE 0 ML IV SCH (08:16)
[2021-12-08] MEDS: DOCUSATE SODIUM 100 MG CAP PO SCH (08:26)
[2021-12-08] MEDS: ASCORBIC ACID 500 MG TAB PO SCH (08:26)
[2021-12-08] MEDS: CHOLECALCIFEROL 1,000 UNITS 25 MCG TAB PO SCH (08:34)
[2021-12-08] MEDS: EZETIMIBE 10 MG TABLET PO SCH (08:34)
[2021-12-08] MEDS: hydrALAZINE HCL 25 MG TAB PO SCH (08:34)
[2021-12-08] MEDS: MAGNESIUM OXIDE 400 MG TAB PO SCH (08:34)
[2021-12-08] MEDS: carvediloL 12.5 MG TAB PO SCH (08:34)
[2021-12-08] MEDS: FOLIC ACID 400 MCG TAB PO SCH (08:34)
[2021-12-08] MEDS: NITROGLYCERIN 0.4 MG/HR PATCH TD SCH (08:34)
[2021-12-08] MEDS: ASPIRIN 81 MG ECTAB PO SCH (08:34)
[2021-12-08] MEDS: ADVANCED PROBIOTIC 1250 MG CAPSULE PO SCH (08:34)
[2021-12-08] MEDS: TAMSULOSIN HCL 0.4 MG CAP PO SCH (08:35)
[2021-12-08] MEDS: POTASSIUM CHLORIDE PWD 20 MEQ PACK PO SCH (08:35)
[2021-12-08] MEDS: SACCHAROMYCES BOULARDII 250 MG CAP PO SCH (08:35)
[2021-12-08] MEDS: SPIRONOLACTONE 12.5 MG TAB PO SCH (08:35)
[2021-12-08] MEDS: RIVAROXABAN 2.5 MG TAB PO SCH (08:35)
[2021-12-08] MEDS: ZINC SULFATE 220 MG CAPSULE PO SCH (08:35)
[2021-12-08] MEDS: ROSUVASTATIN CALCIUM 5 MG TAB PO SCH (08:35)
--- NOTE | 2021-12-08 10:56 | XRay Report ---
XR chest 1V portable CLINICAL HISTORY: severe orthopnea persists TECHNIQUE: Single frontal radiograph of the chest was obtained. Comparison: Comparison is made to chest radiograph 12/02/2021 FINDINGS: Median sternotomy wires are unchanged. Calcified aortic knob is seen. Pneumobilia is noted. Prominenc e and cephalization of the vasculature is seen. Small bilateral pleural effusions are seen, improved from prior exam. IMPRESSION: 1. Mild improvement in bilateral pleural effusions. 2. Mild pulmonary edema, unchanged. ACT 112: Negative or not required by law. Electronically signed by: Esteban Waddell M.D. 12/08/2021 10:55 AM
--- NOTE | 2021-12-08 11:20 | Cardiology Progress Note ---
Date of Service December 08, 2021 Assessment & Plan (1) Acute on chronic systolic HF (heart failure): (2) Hypokalemia: (3) Bacteremia: Plan 86-year-old male with longstanding history of coronary disease, ischemic cardiomyopathy, LVEF 45- 50% on echocardiogram this admission, remote history of CABG 1995 (ORTEGA-LAD, SVG-Diagonal, SVG-LCX, SVG-RCA with cath on June 12, 2016 revealing an occluded SVG-RCA graft, all other grafts patent). Patient presented with acute on chronic shortness of breath and increased lower extremity edema representing acute decompensated systolic and diastolic congestive heart failure exacerbation. (1) Acute on chronic systolic and diastolic congestive heart failure, ischemic cardiomyopathy: - Patient with slow gradual improvement, stable renal dysfunction - Transition IV Bumex to oral Bumex 2 mg twice a day on discharge. - Continue low dose spironolactone. - Potassium will likely need to be decreased to 40 mEq/day - No metolazone for now - Close basic metabolic panel follow-up recommended. - Continue carvedilol, nitrates, hydralazine, aspirin, rosuvastatin, ezetimibe, Xarelto (PAD dose) 2.5 mg twice daily. (2) Hypokalemia. Potassium 4.5 mmol/L today. See above. (3) Hyponatremia. Relatively stable at 133 mmol/L today. Likely hypervolemic hyponatremia with metolazone a contributing factor. Continue without metolazone. (4) Bacteremia: 4 blood cultures positive for Myroides species. Left lower extremity wound likely source. Received a single dose of levofloxacin, transitioned to meropenem due to a prolonged QT interval on EKG's. QTc 502 on 12/03/2021. As per Hospitalist. DVT prophylaxis: Continue Xarelto, PAD Dose, monitor renal function. Outpatient cardiology follow-up in [place], [place]. Patient is considering his options. Admission and Anticipated Discharge Date Admission Date: November 28, 2021 Supervising Physician Co-Signing Physician Notes Patient discharged prior to me having the opportunity to personally examine him. I did however discuss his case with both Jerod and Dr. Riojas. Proceed with outpatient oral diuretic therapy. Subjective Patient seen and examined. Chart, medications, and telemetry reviewed. Feels the same. He would like to be discharged today. He would like his cardiology follow-up to be in [place], [place] if possible. No chest pain. No palpitations. Stable dyspnea, orthopnea, and peripheral edema. No positional dizziness or near syncope. Telemetry: Sinus ranging from the 50s overnight, currently in the 60s. Occasional atrial and ventricular ectopy observed. No sustained or significant arrhythmias. Physical Exam Physical Exam: General: A&Ox3. NAD. Hard of hearing HENT: Normocephalic. Atraumatic. Eyes: PER. Conjunctiva pink, sclera clear. Neck: No carotid bruits. + JVD. Heart: RRR. Apical systolic murmur. Lungs: Absent breath sounds at the bases. Auscultation suggesting right greater than left pleural effusions. Left basilar Rales. No wheeze. Abdomen: +BS. Soft. Nontender. No masses or organomegaly. Extremities: 1+ hard edema. Dressing not removed from the left lower extremity. No clubbing. No cyanosis Limited neurological examination is without focal deficits. Pulses: radial=2/4, posterior tibial=0/4. Results & Data ([facility]) Vital Signs (Past 12 Hours) Vital Signs Temp Pulse Pulse Pulse Resp BP Pulse Ox 12/08/21 08:00 68 12/08/21 07:44 12/08/21 06:44 36.5 C 96 H 20 122/68 92 12/08/21 05:25 65 12/08/21 00:30 56 L 12/08/21 03:20 58 L 12/08/21 03:50 36.6 C 60 18 126/62 95 12/07/21 23:40 36.8 C 73 18 113/70 95 Pulse Ox O2 Del Method O2 Del Method FiO2 12/08/21 08:00 12/08/21 07:44 Room Air 12/08/21 06:44 Room Air 12/08/21 05:25 95 Room Air 21 12/08/21 00:30 99 Room Air 12/08/21 03:20 98 Room Air 12/08/21 03:50 Room Air 12/07/21 23:40 Room Air Laboratory Results CBC 12/08/21 Range/Units 07:23 WBC 9.67 (4.8-10.8) K/ul RBC 3.47 L (4.63-6.08) M/uL Hgb 9.6 L (14.0-18.0) g/dl Hct 30.9 L (40.1-51.0) % Plt Count 246 (130-400) K/uL Comprehensive Metabolic Panel 12/08/21 Range/Units 07:23 Sodium 133 L (136-145) mmol/L Potassium 4.5 (3.5-5.1) mmol/L Chloride 95 L (98-107) mmol/L Carbon Dioxide 28 (21-32) mmol/L BUN 54 H (6-23) mg/dl Creatinine 2.05 H (0.6-1.4) mg/dl Glucose 117 H (70-99(Fasting)) mg/dl Calcium 8.9 (8.5-10.1) mg/dl Intake and Output 12/07/21 12/08/21 12/08/21 22:59 06:59 14:59 Intake Total 280 / 795 140 / 795 Output Total 650 / 1125 Balance -370 / -330 140 / -330 Intake: Oral 280 / 795 140 / 795 Output: Urine 650 / 1125 Other: Weight 76.8 kg Weight Measurement Method Standing Scale
--- NOTE | 2021-12-08 13:09 | Discharge Summary ---
Date of Service December 08, 2021 Admission HPI Per Admitting Provider This is an 86yo M with a PMH of combined systolic and diastolic heart failure, CKD 3 (baseline Cr 1.8-2), history of kidney stones, history of carotid stenosis s/p MAYELA, CAD (s/p CABG in 1995), HTN, PVD and other medical problems as below who presents with shortness of breath that is worsened over the past week. Patient has become more dyspneic with exertion but woke up with more severe shortness of breath at 3 this morning. States it feels similar to when he has had fluid in his lungs in the past. Is able to breathe more easily when sitting upright. Had some chest pain last evening that is since resolved. Is feeling more comfortable on oxygen and saturating at 100% on 2 L nasal cannula although still needing to sit upright during interview. Also endorsing left lower extremity redness and tenderness that is worsened with past 2 days. States that lower extremities have been swollen for better part of the last year and has been taking diuretics for that. Lives in [place] with niece and nephew. Khang ruiz with Dr. Chavira of cardiology in [place]. Denies any fever or chills. No congestion, headache, palpitations, wheezing, nausea, vomiting, abdominal pain, dysuria, diarrhea or constipation. States he has been taking all home medications as scheduled. Was admitted to our service with similar presentation in late August. Principal Diagnosis Decompensated heart failure Left leg wound with Myroides bacteremia Discharge Exam CONSTITUTIONAL: WNWD, vitals as above, generally well-appearing, NAD EYES: normal conjunctivae, no scleral icterus ENT: external ear and nose normal, MMM NECK: trachea midline RESPIRATORY: clear to auscultation bilaterally, no crackles, rales or wheezes, normal respiratory effort CARDIOVASCULAR: regular rate and rhythm, S1 and 2 heard without murmurs, gallops or rubs, no JVD, no peripheral edema CHEST: inspection of chest was normal GASTROINTESTINAL: soft, nontender, ND, no guarding MUSCULOSKELETAL: strength 5/5 throughout, head is normocephalic and atraumatic SKIN: warm and dry NEUROLOGIC: CN 2-12 grossly intact, no sensory deficit, normal cognition, normal speech, no tremor PSYCHIATRIC: alert cooperative and oriented to person, place and time. Discharge Data Allergies Allergy/AdvReac Type Severity Reaction Status Date / Time doxazosin [From Cardura] Allergy Intermediate HIVES and Verified 11/28/21 17:56 ITCHING furosemide [From Lasix] Allergy Intermediate HIVES and Verified 11/28/21 17:56 ITCHING hydrochlorothiazide Allergy Intermediate ITCHING Verified 11/28/21 17:56 potassium chloride Allergy Intermediate HIVES and Verified 11/28/21 17:56 ITCHING clonidine Allergy Unknown Unknown Verified 11/28/21 17:56 ketorolac [From Toradol] AdvReac Severe ACUTE Verified 11/28/21 17:56 KIDNEY INJURY lisinopril AdvReac Intermediate COUGH Verified 11/28/21 17:56 Consultations 11/28/21 17:50 ED Decision to Admit Stat 11/28/21 20:04 HIM [Consult Health Information Management] Stat 11/29/21 08:00 Consult Cardiology Routine 11/30/21 07:36 Consult Infectious Diseases Routine Ordered Studies 11/28/21 14:51 US venous doppler LE LT Stat Hospital Course (1) Acute decompensated heart failure: (2) Left leg cellulitis: (3) Elevated troponin: (4) Anemia in chronic kidney disease: (5) HTN (hypertension): (6) PAD (peripheral artery disease): (7) Chronic kidney disease: (8) BPH w urinary obs/LUTS: Plan 86-year-old man admitted for acute on chronic systolic heart failure and left leg cellulitis 2/2 leg wound. He is continue to receive intravenous diuretics with improvement and felt good on the escalated dose of oral bumex at time of discharge (2mg PO BID). Metolazone was no longer recommended. Echocardiogram performed this admission revealing EF 40 to 45%, pulmonary hypertension and valve disease. Patient found to have Myroides bacteria in his blood and was placed on broad-spectrum antibiotics. There was no evidence of vegetation on TTE. Infectious disease was consulted and ultimately is recommending meropenem for total 14-day treatment. Patient's leg improved he was felling well overall. Overnight oximetry study was attempted for reports of severe orthopnea, howev er, this could not be completed because the patient could not lie flat. What was seen was not enough to qualify him for supplemental oxygen. After adequate diuresis over the next few weeks at home, he was instructed to consider outpatient polysomnogram again if symptoms persisted. He verbalized understanding with intent to comply. His niece was taught how to infuse his intravenous antibiotics at home prior to discharge and he was sent home in stable condition with close primary care followup in one week recommended. Total Time Total Time Spent Total Time Spent (In Minutes): 60 Discharge Plan Discharge Items Patient Disposition: Home - Home Health Services Reason For Visit: DECOMPENSATED HEART FAILURE Discharge Diagnosis: Decompensated heart failure Left leg wound with Myroides bacteremia Activity: Resume your previous activity Non-emergency contact: Primary Care Provider and [employer] Teacher Call non-emergency contact if: you have any medication questions, your symptoms worsen, your pain is not controlled, your pain is worsening, your pain is unusual for you, your pain is concerning for you and you have a fever Follow-up/Referrals: Panchito Anguiano PA-C [Primary Care Provider] - 12/11/21 10:00 am Diet: Low Sodium (2gm) Addtl Attending Provider Instructions: Please take all medications as directed on discharge list below. Please note your fluid pills have been changed and you are now on Bumex 2 mg twice daily to start at discharge. You are also on a new medicine called spironolactone. Potassium should be continued at 40 mill equivalents a day. Please note that metolazone has been stopped. As a result of these changes it is important that you follow-up with your primary care doctor within 1 week of discharge and ensure a basic metabolic panel has been checked to monitor kidney function and electrolytes. This visit will also be important to ensure you are tolerating medications without issue. After your diuretic therapy has taken effect over the next couple of weeks if you are still having difficulty laying flat and sleeping, an outpatient sleep study may be warranted. Please continue to work with your outpatient primary care doctor in this effort. You are being given additional antibiotics through your IV to complete a total 14-day course. We have approximately 1 week left at the time of discharge. After this time your primary care doctor may need to order the peripheral IV line to be discontinued. Please follow-up with wound clinic for continued care of the wound on your left lower leg. Please follow all wound care instructions per this discharge summary. It was a pleasure taking care of you! Please call if you have any questions or problems. You can reach a [facility] hospitalist on duty at [facility] 24 hours a day by calling [phone]. Take care of yourself. Cecy Riojas DO [facility] Hospitalist Pending Studies at Discharge: No Stand-Alone Forms: My [facility] Medications and DC Order Prescriptions: New spironolactone 25 mg Tablet 12.5 mg PO DAILY Qty: 30 0RF Saccharomyces boulardii [Florastor] 250 mg Capsule 250 mg PO DAILY Qty: 10 0RF bumetanide 2 mg tablet 2 mg PO BID17 Qty: 60 0RF Rx Instructions: Take 1 tab every morning, and 1 tab every evening around 5pm. meropenem 1 gram recon soln 1 g IV Q8H Qty: 21 0RF Continued rosuvastatin 5 mg tablet 5 mg PO DAILY Qty: 30 2RF ezetimibe 10 mg tablet 10 mg PO DAILY Qty: 30 2RF Xarelto 2.5 mg tablet 2.5 mg PO BID Qty: 60 2RF triamcinolone acetonide 0.1 % cream 1 applic topical TID PRN (Reason: itching) Qty: 15 0RF aspirin 81 mg tablet,delayed release (DR/EC) 81 mg PO DAILY Qty: 30 2RF ascorbic acid (vitamin C) 1,000 mg tablet 1 g PO DAILY Qty: 120 0RF nitroglycerin [Nitrostat] 0.4 mg tablet, sublingual 0.4 mg sublingual Q5M PRN (Reason: chest pain) Qty: 1 0RF Rx Instructions: do not exceed 3 doses per episode magnesium oxide 400 mg magnesium capsule 400 mg PO DAILY Qty: 30 0RF carvedilol 12.5 mg tablet 12.5 mg PO BID Qty: 60 2RF Rx Instructions: must administer with a meal/food vitamin D10-mjxao acid 500-400 mcg tablet 1 tab PO DAILY Qty: 30 0RF Rx Instructions: administer with a meal tamsulosin 0.4 mg capsule 0.8 mg PO DAILY Qty: 30 2RF dutasteride 0.5 mg capsule 0.5 mg PO DAILY Qty: 30 2RF menthol-zinc oxide [Calmoseptine] 0.44-20.6 % ointment 1 applic topical TID PRN (Reason: skin irritation) Qty: 113 1RF zinc 50 mg tablet 50 mg PO DAILY docusate sodium [Colace] 100 mg capsule 100 mg PO BID Aranesp (in polysorbate) 60 mcg/mL solution 60 mcg subcut .COMPLEX Qty: 1 3RF Rx Instructions: 60 mcg subcut every 2 weeks; hold for Hgb >11 hydralazine 25 mg tablet 25 mg PO BID Qty: 90 1RF nitroglycerin [Nitro-Dur] 0.4 mg/hr patch 24 hour 1 patch transdermal QAM MDD remove in pm Rx Instructions: allow nitrate-free interval of approx. 10-12 hrs per 24-hour period folic acid 400 mcg Tablet 400 mcg PO QAM Qty: 30 0RF cholecalciferol (vitamin D3) [Vitamin D3] 50 mcg (2,000 unit) Tablet 50 mcg PO DAILY ferrous sulfate 134 mg (27 mg iron) Tablet 134 mg PO BID potassium chloride 20 mEq tablet,ER particles/crystals 40 meq PO DAILY omega-3 fatty acids 1,000 mg Capsule 2,000 mg PO BID Discontinued metolazone 5 mg tablet 5 mg PO Q OTHER DAY bumetanide 1 mg tablet 1 mg PO DAILY Qty: 30 2RF Discharge Orders: Discharge Order (Routine); Ordered 12/08/21 Ordered By: Cecy Riojas Admission Data Admit Date/Time: 11/28/21 17:56 Attending Provider: Cecy Riojas Admit Provider: Dakota Mesa Primary Care Provider: Panchito Anguiano Other Providers: [facility] ; Dakota Mesa ; Angel Earl ; Deven Monique ; Danuta Coleman ; Rome Bello I. ; Kannan Osman II ; Jazzmine Chand ; Frankie Lara ; Bismark Lauren Other Interventions: Discharge Summary Assessment (RN) Last Done: 12/08/21 13:53
== END 2021-12-08 14:46 | disposition home health service (06) | DRG 291 ==
LOC: ED 14:34 → EDINP 17:56 → SUATTDRO 17:56 → EDINP 11-29 00:46 → 2S 11-29 01:28 → 2N 12-02 11:21
DX: I73.9 Peripheral vascular disease, unspecified; R78.81 Bacteremia; E87.1 Hypo-osmolality and hyponatremia; Z87.442 Personal history of urinary calculi; I13.0 Hypertensive heart and chronic kidney disease with heart failure and stage 1 through stage 4 chronic kidney disease, or unspecified chronic kidney disease; N18.30 Chronic kidney disease, stage 3 unspecified; I27.20 Pulmonary hypertension, unspecified; I50.43 Acute on chronic combined systolic (congestive) and diastolic (congestive) heart failure; D63.1 Anemia in chronic kidney disease; E87.6 Hypokalemia; I65.29 Occlusion and stenosis of unspecified carotid artery; Z79.899 Other long term (current) drug therapy; E78.5 Hyperlipidemia, unspecified; I25.5 Ischemic cardiomyopathy; N40.1 Benign prostatic hyperplasia with lower urinary tract symptoms; L03.116 Cellulitis of left lower limb; B96.89 Other specified bacterial agents as the cause of diseases classified elsewhere; Z79.01 Long term (current) use of anticoagulants; Z95.1 Presence of aortocoronary bypass graft; I24.8 Other forms of acute ischemic heart disease; R19.7 Diarrhea, unspecified; Z79.82 Long term (current) use of aspirin; I25.810 Atherosclerosis of coronary artery bypass graft(s) without angina pectoris; I08.3 Combined rheumatic disorders of mitral, aortic and tricuspid valves; I25.10 Atherosclerotic heart disease of native coronary artery without angina pectoris

== ENCOUNTER 2022-07-01 11:35 | Inpatient (IN) ==
--- NOTE | 2022-07-01 12:09 | Emergency Department Note ---
Impression & Plan Generalized muscle weakness, Chronic kidney disease, Abnormal EKG, Elevated troponin I level, Lab test positive for detection of COVID-19 virus ED Provider Note NAME: JUDITH JEFFERY AGE: 87 SEX: M : 1935 ARRIVES VIA: Walk-In INFORMANT: Patient, the patient's nephew ED PROVIDER(S): Db Ponce DO CHIEF COMPLAINT: Weakness HPI: The patient is an 87-year-old male who presented to the emergency department for generalized weakness. The patient lives at home and his nephew does help care for him. The patient has been having problems with generalized weakness lower extremity swelling and shortness of breath over the course of the last few weeks. He was seen at [facility] on June 21 for similar complaints. The patient's had no fever. He had no cough or hemoptysis. He has noticed some lower extremity swelling with redness. He has had trouble getting up and doing his ADLs because of generalized weakness. The patient denies having any dysuria or frequency. He states he is try to been compliant with all of his outpatient medications. ROS: See above HPI for pertinent positives & negatives. A total of 10 systems reviewed and were otherwise negative. PAST MEDICAL HISTORY: See Below PAST SURGICAL HISTORY: See Below FAMILY HISTORY: See Below SOCIAL HISTORY: See Below HOME MEDICATIONS: See Below ALLERGIES: See Below VITALS: See Below PHYSICAL EXAMINATION: GENERAL: Patient is awake alert in no acute distress patient is resting comfortably and showing no signs of anxiety EYES: The conjunctivae are clear. The pupils are round and reactive. EARS, NOSE, MOUTH AND THROAT: The nose is without any evidence of any deformity. Mucous membranes are moist. Tongue is midline. NECK: The neck is nontender and supple. RESPIRATORY: Normal respiratory effort is noted there is no evidence of wheezing rhonchi or rales CARDIOVASCULAR: Regular rate and rhythm was noted to auscultation. Systolic murmur suggested. GASTROINTESTINAL: The abdomen is soft. Abdomen is nontender. MUSCULOSKELETAL/EXTREMITIES: There is no evidence of gross deformity full range of motion is noted in the hips and shoulders. SKIN: Chronic venous stasis changes were noted. Skin is warm and dry. NEUROLOGIC: Patient is awake and oriented to person place and situation. Strength was symmetric but diminished. MEDICAL DECISION MAKING: The patient is an 87-year-old male who presented to the emergency department with family members for an evaluation of generalized weakness. There was reported shortness of breath and lower extremity swelling but the patient himself is denying have any significant shortness of breath. He states he does seem more weakness when he tries to ambulate however. I discussed the patient's laboratory and radiographic studies with him. He was found to have abnormalities on EKG which could be consistent with ischemia compared to previous. His baseline creatinine does have slight elevation. His troponin was elevated. He denies having any chest pain. He also was found to have a positive COVID swab. I discussed the patient's laboratory and radiographic studies with him. [facility] have agreed to evaluate the patient in the emergency department for further management and disposition. Triage Nursing notes reviewed. Prior medical records reviewed Vital Signs: reviewed and remarkable for no significant abnormalities Differential diagnosis: Infection, dehydration, metabolic abnormality, hypo/hyperglycemia, electrolyte disturbance, anemia, hypoxia, cardiac sources, intracerebral event, toxicologic, neurologic, as well as other pathologies. ER treatment provided: See below Diagnostics interpreted by me: ECG: EKG was obtained in the emergency department. My interpretation is sinus rhythm at 81 bpm. First-degree AV block was noted. PVCs were noted. LVH was suggested by voltage criteria. There is diffuse ST segment depressions noted. This was compared to a tracing from December 06, 2021. The ST segment depression is new compared to the earlier tracing. Cardiac Monitoring: An order was placed for continuous cardiac monitoring. The monitor shows a rate of 82 bpm with sinus rhythm. Laboratory studies: As stated above and show below. Imaging studies: See below. Radiographic imaging was reviewed by myself Consultation(s): I discussed this case with Yolanda who [facility] They will evaluate the patient in the emergency department. Past Med/Surg History Medical History Carotid stenosis Diastolic CHF, chronic DVT prophylaxis Hearing loss Hematuria HTN (hypertension) Hyperlipidemia Nephrolithiasis Osteoarthritis PAD (peripheral artery disease) Surgical History H/O endarterectomy H/O lithotripsy Hx of CABG S/P colonoscopic polypectomy S/P total knee arthroplasty left Family History Denies family history of Diabetes Kidney disease Social History Smoking Status: Never smoker Hx Alcohol Use: Yes Hx Substance Use: No Preferred Language: Yi Communication Ability: Effective Hearing Ability: Hard of Hearing Construction Supervisor/Carpenter Required: No Beliefs That Will Affect Care: None Current Living Situation: Alone current occupational status: retired Feels Safe at Home: Yes Assistive Devices: Bedside Commode, Cane, Hospital Bed and Walker Allergies Allergies Allergy/AdvReac Type Severity Reaction Status Date / Time doxazosin [From Cardura] Allergy Intermediate HIVES and Verified 06/26/22 09:45 ITCHING furosemide [From Lasix] Allergy Intermediate HIVES and Verified 06/26/22 09:45 ITCHING hydrochlorothiazide Allergy Intermediate ITCHING Verified 06/26/22 09:45 potassium chloride Allergy Intermediate HIVES and Verified 06/26/22 09:45 ITCHING clonidine Allergy Unknown Unknown Verified 06/26/22 09:45 ketorolac [From Toradol] AdvReac Severe ACUTE Verified 06/26/22 09:45 KIDNEY INJURY lisinopril AdvReac Intermediate COUGH Verified 06/26/22 09:45 Home Meds Home Medications Medication Instructions Recorded Confirmed docusate sodium 100 mg capsule 100 mg PO BID 12/06/20 07/01/22 (Colace) zinc 50 mg tablet 50 mg PO DAILY 12/06/20 07/01/22 cholecalciferol (vitamin D3) 50 50 mcg PO DAILY 09/25/21 07/01/22 mcg (2,000 unit) tablet (Vitamin D3) potassium chloride 20 mEq 40 meq PO DAILY 09/25/21 07/01/22 tablet,extended release(part/cryst) omega-3 fatty acids 1,000 mg 2,000 mg PO BID 11/28/21 07/01/22 capsule bumetanide 2 mg tablet 1 mg PO TID 06/26/22 07/01/22 Previous Rx's Medication Instructions Recorded ascorbic acid (vitamin C) 1,000 mg 1 g PO DAILY #120 tabs 11/24/20 tablet carvedilol 12.5 mg tablet 12.5 mg PO BID #60 tabs 11/24/20 dutasteride 0.5 mg capsule 0.5 mg PO DAILY #30 caps 11/24/20 ezetimibe 10 mg tablet 10 mg PO DAILY #30 tabs 11/24/20 magnesium oxide 400 mg PO DAILY #30 caps 11/24/20 nitroglycerin 0.4 mg sublingual 0.4 mg sublingual Q5M PRN chest 11/24/20 tablet (Nitrostat) pain #1 tab rivaroxaban 2.5 mg tablet (Xarelto) 2.5 mg PO BID #60 tabs 11/24/20 rosuvastatin 5 mg tablet 5 mg PO DAILY #30 tabs 11/24/20 tamsulosin 0.4 mg capsule 0.8 mg PO DAILY #30 caps 11/24/20 triamcinolone acetonide 0.1 % 1 applic topical TID PRN itching 11/24/20 topical cream #15 grams vitamin B12 500 mcg-folic acid 400 1 tab PO DAILY #30 tabs 11/24/20 mcg tablet folic acid 400 mcg tablet 400 mcg PO QAM #30 tabs 08/31/21 menthol 0.44 %-zinc oxide 20.6 % 1 applic topical TID PRN skin 09/05/21 topical ointment (Calmoseptine) irritation #113 grams darbepoetin lizzy in polysorbat 60 60 mcg subcut .COMPLEX #1 mL 10/03/21 mcg/mL in polysorbate injection (Aranesp) hydralazine 25 mg tablet 25 mg PO BID #90 tabs 10/17/21 Saccharomyces boulardii 250 mg 250 mg PO DAILY #10 caps 12/08/21 capsule (Florastor) spironolactone 25 mg tablet 12.5 mg PO DAILY #30 tabs 12/08/21 clopidogrel 75 mg tablet 75 mg PO DAILY #30 tabs 04/03/22 ferric citrate 210 mg iron tablet 210 mg PO BID #180 tabs 04/03/22 (Auryxia) Results & Data (ED) Vital Signs Vital Signs - 24 hr 07/01/22 11:44 07/01/22 12:24 07/01/22 12:06 Temperature 36.4 C L Temperature Source Temporal Artery Scan Pulse Rate 73 83 Pulse Rate [Right Finger] Pulse Rhythm [Right Finger] Pulse Strength [Right Finger] Respiratory Rate 19 Respiratory Effort / Characteristics Respiratory Depth Respiratory Pattern Blood Pressure 122/61 Blood Pressure [Left Arm] Blood Pressure Mean 81 Blood Pressure Mean [Left Arm] Blood Pressure Position [Left Arm] Pulse Oximetry 97 Oxygen Delivery Method Room Air Room Air Sepsis Recent Fever Within 48 Hours No Sepsis New/Unexplained Change in Mental Status N/A Sepsis Action Taken by Nursing No Action Required 07/01/22 12:30 07/01/22 12:30 07/01/22 13:00 Temperature Temperature Source Pulse Rate Pulse Rate [Right Finger] 82 Pulse Rhythm [Right Finger] Regular Pulse Strength [Right Finger] Normal Respiratory Rate 18 Respiratory Effort / Characteristics Spontaneous Non-Labored Respiratory Depth Normal Respiratory Pattern Regular Blood Pressure Blood Pressure [Left Arm] 140/68 Blood Pressure Mean Blood Pressure Mean [Left Arm] 92 Blood Pressure Position [Left Arm] Lying Pulse Oximetry 94 Oxygen Delivery Method Room Air Room Air Room Air Sepsis Recent Fever Within 48 Hours Sepsis New/Unexplained Change in Mental Status Sepsis Action Taken by Care Home Medications Current Medication List: was personally reviewed by me Laboratory Data Attestation: I reviewed the patient's lab results. 07/01/22 12:25 07/01/22 12:25 Lab Results 07/01/22 07/01/22 07/01/22 Range/Units 12:25 12:25 12:25 WBC 8.69 (4.8-10.8) K/ul RBC 4.27 L (4.70-6.10) M/uL Hgb 11.2 L (14.0-18.0) g/dl Hct 34.8 L (42.0-52.0) % MCV 81.5 (80.0-100.0) fL MCH 26.2 (25.0-34.0) pg MCHC 32.2 (32.0-36.0) g/dL RDW Std Deviation 54.6 H (36.4-46.3) fL RDW Coeff of Dmitriy 18.6 H (11.5-14.5) % Plt Count 256 (130-400) K/uL MPV 10.5 (9.4-12.4) fL Immature Gran % (Auto) 0.5 % Neut % (Auto) 83.2 % Lymph % (Auto) 5.8 % [place] % (Auto) 8.4 % Eos % (Auto) 1.8 % Baso % (Auto) 0.3 % Neut # (Auto) 7.23 H (1.40-6.50) K/uL Lymph # (Auto) 0.50 L (1.2-3.4) K/uL [place] # (Auto) 0.73 H (0.11-0.59) K/uL Eos # (Auto) 0.16 (0-0.50) K/uL Baso # (Auto) 0.03 (0-0.2) K/uL Immature Gran # (Auto) 0.04 (0.01-0.20) K/uL PT 11.7 (9.0-12.0) Seconds INR 1.1 (0.9-1.1) APTT 26.5 (21.0-31.0) Seconds PTT Ratio 1.0 D-Dimer (0-500) ug/L FEU Sodium 133 L (136-145) mmol/L Potassium 3.2 L (3.5-5.1) mmol/L Chloride 88 L (98-107) mmol/L Carbon Dioxide 35 H (21-32) mmol/L Anion Gap 10 (3-11) BUN 117 H (6-23) mg/dl Creatinine 2.56 H (0.6-1.4) mg/dl Est Cr Clr Drug Dosing Not Reportable Est GFR ( Amer) 25.2 ml/min Est GFR (Non-Af Amer) 21.8 ml/min BUN/Creatinine Ratio 45.7 H (10-20) Glucose 126 H (70-99(Fasting)) mg/dl Calcium 9.9 (8.5-10.1) mg/dl Magnesium 2.3 (1.7-2.4) mg/dl Total Bilirubin 0.8 (0.2-1.0) mg/dl AST 25 (13-39) U/L ALT 25 (7-52) U/L Alkaline Phosphatase 138 H (34-104) U/L Troponin I High Sens 113.1 H* (0-20) pg/ml C-Reactive Protein (0-0.5) mg/dl B-Natriuretic Peptide (0-100) pg/ml Total Protein 8.0 (6.0-8.3) gm/dl Albumin 3.9 (3.4-5.0) gm/dl Globulin 4.1 H (2.5-4.0) gm/dl Albumin/Globulin Ratio 1.0 (0.9-2) TSH (0.300-4.500) uIu/ml Urine Color Urine Appearance (Clear) Urine pH (4.5-7.5) Ur Specific [place] (1.000-1.030) Urine Protein (Negative) Urine Glucose (UA) (Negative) Urine Ketones (Negative) Urine Blood (Negative) Urine Nitrite (Negative) Urine Bilirubin (Negative) Urine Urobilinogen (Negative) Ur Leukocyte Esterase (Negative) SARS-CoV-2 (PCR) (Negative) Influenza Type A (PCR) (Neg) Influenza Type B (PCR) (Neg) RSV (RT-PCR) (Neg) 07/01/22 07/01/22 07/01/22 Range/Units 12:25 12:25 12:25 WBC (4.8-10.8) K/ul RBC (4.70-6.10) M/uL Hgb (14.0-18.0) g/dl Hct (42.0-52.0) % MCV (80.0-100.0) fL MCH (25.0-34.0) pg MCHC (32.0-36.0) g/dL RDW Std Deviation (36.4-46.3) fL RDW Coeff of Dmitriy (11.5-14.5) % Plt Count (130-400) K/uL MPV (9.4-12.4) fL Immature Gran % (Auto) % Neut % (Auto) % Lymph % (Auto) % [place] % (Auto) % Eos % (Auto) % Baso % (Auto) % Neut # (Auto) (1.40-6.50) K/uL Lymph # (Auto) (1.2-3.4) K/uL [place] # (Auto) (0.11-0.59) K/uL Eos # (Auto) (0-0.50) K/uL Baso # (Auto) (0-0.2) K/uL Immature Gran # (Auto) (0.01-0.20) K/uL PT (9.0-12.0) Seconds INR (0.9-1.1) APTT (21.0-31.0) Seconds PTT Ratio D-Dimer 1420 H* (0-500) ug/L FEU Sodium (136-145) mmol/L Potassium (3.5-5.1) mmol/L Chloride (98-107) mmol/L Carbon Dioxide (21-32) mmol/L Anion Gap (3-11) BUN (6-23) mg/dl Creatinine (0.6-1.4) mg/dl Est Cr Clr Drug Dosing Est GFR ( Amer) ml/min Est GFR (Non-Af Amer) ml/min BUN/Creatinine Ratio (10-20) Glucose (70-99(Fasting)) mg/dl Calcium (8.5-10.1) mg/dl Magnesium (1.7-2.4) mg/dl Total Bilirubin (0.2-1.0) mg/dl AST (13-39) U/L ALT (7-52) U/L Alkaline Phosphatase (34-104) U/L Troponin I High Sens (0-20) pg/ml C-Reactive Protein (0-0.5) mg/dl B-Natriuretic Peptide (0-100) pg/ml Total Protein (6.0-8.3) gm/dl Albumin (3.4-5.0) gm/dl Globulin (2.5-4.0) gm/dl Albumin/Globulin Ratio (0.9-2) TSH 1.997 (0.300-4.500) uIu/ml Urine Color Urine Appearance (Clear) Urine pH (4.5-7.5) Ur Specific [place] (1.000-1.030) Urine Protein (Negative) Urine Glucose (UA) (Negative) Urine Ketones (Negative) Urine Blood (Negative) Urine Nitrite (Negative) Urine Bilirubin (Negative) Urine Urobilinogen (Negative) Ur Leukocyte Esterase (Negative) SARS-CoV-2 (PCR) POSITIVE A* (Negative) Influenza Type A (PCR) Negative (Neg) Influenza Type B (PCR) Negative (Neg) RSV (RT-PCR) Negative (Neg) 07/01/22 07/01/22 07/01/22 Range/Units 12:53 14:29 14:29 WBC (4.8-10.8) K/ul RBC (4.70-6.10) M/uL Hgb (14.0-18.0) g/dl Hct (42.0-52.0) % MCV (80.0-100.0) fL MCH (25.0-34.0) pg MCHC (32.0-36.0) g/dL RDW Std Deviation (36.4-46.3) fL RDW Coeff of Dmitriy (11.5-14.5) % Plt Count (130-400) K/uL MPV (9.4-12.4) fL Immature Gran % (Auto) % Neut % (Auto) % Lymph % (Auto) % [place] % (Auto) % Eos % (Auto) % Baso % (Auto) % Neut # (Auto) (1.40-6.50) K/uL Lymph # (Auto) (1.2-3.4) K/uL [place] # (Auto) (0.11-0.59) K/uL Eos # (Auto) (0-0.50) K/uL Baso # (Auto) (0-0.2) K/uL Immature Gran # (Auto) (0.01-0.20) K/uL PT (9.0-12.0) Seconds INR (0.9-1.1) APTT (21.0-31.0) Seconds PTT Ratio D-Dimer (0-500) ug/L FEU Sodium (136-145) mmol/L Potassium (3.5-5.1) mmol/L Chloride (98-107) mmol/L Carbon Dioxide (21-32) mmol/L Anion Gap (3-11) BUN (6-23) mg/dl Creatinine (0.6-1.4) mg/dl Est Cr Clr Drug Dosing Est GFR ( Amer) ml/min Est GFR (Non-Af Amer) ml/min BUN/Creatinine Ratio (10-20) Glucose (70-99(Fasting)) mg/dl Calcium (8.5-10.1) mg/dl Magnesium (1.7-2.4) mg/dl Total Bilirubin (0.2-1.0) mg/dl AST (13-39) U/L ALT (7-52) U/L Alkaline Phosphatase (34-104) U/L Troponin I High Sens (0-20) pg/ml C-Reactive Protein 0.94 H (0-0.5) mg/dl B-Natriuretic Peptide 2291 H (0-100) pg/ml Total Protein (6.0-8.3) gm/dl Albumin (3.4-5.0) gm/dl Globulin (2.5-4.0) gm/dl Albumin/Globulin Ratio (0.9-2) TSH (0.300-4.500) uIu/ml Urine Color Yellow Urine Appearance Clear (Clear) Urine pH 7.0 (4.5-7.5) Ur Specific [place] 1.009 (1.000-1.030) Urine Protein Negative (Negative) Urine Glucose (UA) Negative (Negative) Urine Ketones Negative (Negative) Urine Blood Negative (Negative) Urine Nitrite Negative (Negative) Urine Bilirubin Negative (Negative) Urine Urobilinogen Negative (Negative) Ur Leukocyte Esterase Negative (Negative) SARS-CoV-2 (PCR) (Negative) Influenza Type A (PCR) (Neg) Influenza Type B (PCR) (Neg) RSV (RT-PCR) (Neg) Imaging Data Attestation: I personally reviewed and interpreted this imaging study as follows: My Impression: 1 view chest x-ray was obtained in the emergency department. My interpretation is no free air, no definite trait, final report pending CT of the head was obtained in the emergency department. I did review the images. My interpretation is previous right-sided CVA was noted. There is no acute intracranial bleeding or mass effect. Final report is pending. Radiologist's Impression: Chest X-Ray 07/01/22 12:05 XR chest 1V portable HISTORY: 87 years-old Male Dyspnea acute shortness of breath COMPARISON: 12/08/2021 TECHNIQUE: AP view of the chest FINDINGS: Cardiac silhouette is enlarged. Coronary artery calcifications. Prior median sternotomy. No pneumothorax. Right greater than left layering pleural effusions with bibasilar consolidation similar to prior. Pulmonary vascular congestion with interstitial coarsening. Degenerative changes of the shoulders and spine. IMPRESSION: 1. Cardiomegaly with pulmonary edema. 2. Layering pleural effusions with bibasilar consolidation favoring atelectasis. ACT 112: Negative or not required by law. The above report was generated using voice recognition software. It may contain grammatical, syntax or spelling errors. Electronically signed by: Manfred Wilder M.D. 07/01/2022 12:[address] 07/01/22 12:09 CT head/brain wo con CLINICAL HISTORY: 87 years-old Male with weakness. Acute weakness TECHNIQUE: Multiple axial CT images of the head were obtained without contrast. A dose lowering technique was utilized adhering to the principles of ALARA. CT DOSE: 844.62 mGy.cm COMPARISON: None. FINDINGS: No acute intracranial hemorrhage, midline shift, intracranial mass, hydrocephalus, territorial ischemia or abnormal extra-axial collection. Involutional changes with white matter hypodensities suggestive of chronic microvascular ischemic disease. Encephalomalacia of the right parietal, occipital and posterior right temporal lobes. There are a few punctate associated parenchymal calcifications noted within this distribution. Cerebral vascular calcifications. Motion degraded exam. The calvarium is intact. Rightward bowing and spurring of the nasal septum. Mild polypoid mucosal thickening of the left maxillary sinus. Mastoid air cells are clear. Prior bilateral lens repair. IMPRESSION: 1. No acute intracranial abnormality. 2. Chronic right cerebral infarct. ACT 112: Negative or not required by law. The above report was generated using voice recognition software. It may contain grammatical, syntax or spelling errors. Electronically signed by: Manfred Wilder M.D. 07/01/2022 12:56 PM Discharge Plan Visit Data Chief Complaint: Shortness of Breath/Dyspnea Stated Complaint: SOB ED Provider: Db Ponce Discharge Problem: Generalized muscle weakness, Chronic kidney disease, Abnormal EKG, Elevated troponin I level, Lab test positive for detection of COVID-19 virus Patient Disposition: Being Evaluated by Hospitalist Forms Stand Alone Forms: My [facility] Prescriptions Prescriptions: No Action rosuvastatin 5 mg tablet 5 mg PO DAILY Qty: 30 2RF ezetimibe 10 mg tablet 10 mg PO DAILY Qty: 30 2RF Xarelto 2.5 mg tablet 2.5 mg PO BID Qty: 60 2RF triamcinolone acetonide 0.1 % cream 1 applic topical TID PRN (Reason: itching) Qty: 15 0RF ascorbic acid (vitamin C) 1,000 mg tablet 1 g PO DAILY Qty: 120 0RF nitroglycerin [Nitrostat] 0.4 mg tablet, sublingual 0.4 mg sublingual Q5M PRN (Reason: chest pain) Qty: 1 0RF Rx Instructions: do not exceed 3 doses per episode magnesium oxide 400 mg magnesium capsule 400 mg PO DAILY Qty: 30 0RF carvedilol 12.5 mg tablet 12.5 mg PO BID Qty: 60 2RF Rx Instructions: must administer with a meal/food vitamin [id number] acid 500-400 mcg tablet 1 tab PO DAILY Qty: 30 0RF Rx Instructions: administer with a meal tamsulosin 0.4 mg capsule 0.8 mg PO DAILY Qty: 30 2RF dutasteride 0.5 mg capsule 0.5 mg PO DAILY Qty: 30 2RF menthol-zinc oxide [Calmoseptine] 0.44-20.6 % ointment 1 applic topical TID PRN (Reason: skin irritation) Qty: 113 1RF clopidogrel 75 mg tablet 75 mg PO DAILY Qty: 30 2RF Auryxia 210 mg iron tablet 210 mg PO BID Qty: 180 3RF Rx Instructions: administer with a meal zinc 50 mg tablet 50 mg PO DAILY docusate sodium [Colace] 100 mg capsule 100 mg PO BID Aranesp (in polysorbate) 60 mcg/mL solution 60 mcg subcut .COMPLEX Qty: 1 3RF Rx Instructions: 60 mcg subcut every 2 weeks; hold for Hgb >11 hydralazine 25 mg tablet 25 mg PO BID Qty: 90 1RF bumetanide 2 mg tablet 1 mg PO TID folic acid 400 mcg Tablet 400 mcg PO QAM Qty: 30 0RF cholecalciferol (vitamin D3) [Vitamin D3] 50 mcg (2,000 unit) Tablet 50 mcg PO DAILY potassium chloride 20 mEq tablet,ER particles/crystals 40 meq PO DAILY omega-3 fatty acids 1,000 mg Capsule 2,000 mg PO BID spironolactone 25 mg Tablet 12.5 mg PO DAILY Qty: 30 0RF Saccharomyces boulardii [Florastor] 250 mg Capsule 250 mg PO DAILY Qty: 10 0RF Referrals Referrals: Panchito Anguiano PA-C [Primary Care Provider] - Chronic kidney disease Qualifiers: Chronic kidney disease stage: unspecified stage Qualified Code(s): N18.9 - Chronic kidney disease, unspecified
[2022-07-01 12:40] LABS: Basophils # (auto) 0.03 K/uL (0-0.2); Basophils % (auto) 0.3 %; Eosinophils # (auto) 0.16 K/uL (0-0.50); Eosinophils % (auto) 1.8 %; Hematocrit (blood only) 34.8 % (42.0-52.0); Hemoglobin 11.2 g/dl (14.0-18.0); Immature Granulocytes # (auto) 0.04 K/uL (0.01-0.20); Immature Granulocytes % (auto) 0.5 %; Lymphocytes % (auto) 5.8 %; Mean Corpuscular Hemoglobin 26.2 pg (25.0-34.0); Mean Corpuscular Hgb Conc 32.2 g/dL (32.0-36.0); Mean Corpuscular Volume 81.5 fL (80.0-100.0); Mean Platelet Volume 10.5 fL (9.4-12.4); Monocytes # (auto) 0.73 K/uL (0.11-0.59); Monocytes % (auto) 8.4 %; Neutrophils # (auto) 7.23 K/uL (1.40-6.50); Neutrophils % (auto) 83.2 %; Platelet Count 256 K/uL (130-400); RDW Coefficient of Variation 18.6 % (11.5-14.5); RDW Standard Deviation 54.6 fL (36.4-46.3); Red Blood Count 4.27 M/uL (4.70-6.10); White Blood Count 8.69 K/ul (4.8-10.8)
--- NOTE | 2022-07-01 12:50 | XRay Report ---
XR chest 1V portable HISTORY: 87 years-old Male Dyspnea acute shortness of breath COMPARISON: 12/08/2021 TECHNIQUE: AP view of the chest FINDINGS: Cardiac silhouette is enlarged. Coronary artery calcifications. Prior median sternotomy. No pneumotho rax. Right greater than left layering pleural effusions with bibasilar consolidation similar to prior . Pulmonary vascular congestion with interstitial coarsening. Degenerative changes of the shoulders a nd spine. IMPRESSION: 1. Cardiomegaly with pulmonary edema. 2. Layering pleural effusions with bibasilar consolidation favoring atelectasis. ACT 112: Negative or not required by law. The above report was generated using voice recognition software. It may contain grammatical, syntax o r spelling errors. Electronically signed by: Manfred Wilder M.D. 07/01/2022 12:48 PM
[2022-07-01 12:56] LABS: Alanine Aminotransferase 25 U/L (7-52); Albumin Level 3.9 gm/dl (3.4-5.0); Alkaline Phosphatase 138 U/L (34-104); Anion Gap 10 (3-11); Aspartate Aminotransferase 25 U/L (13-39); BUN Creatinine Ratio 45.7 (10-20); Bilirubin,Total 0.8 mg/dl (0.2-1.0); Blood Urea Nitrogen 117 mg/dl (6-23); Calcium 9.9 mg/dl (8.5-10.1); Carbon Dioxide 35 mmol/L (21-32); Chloride 88 mmol/L (98-107); Est GFR (African American) 25.2 ml/min; Est GFR (Non-African American) 21.8 ml/min; Globulin 4.1 gm/dl (2.5-4.0); Glucose 126 mg/dl (70-99(Fasting)); Magnesium 2.3 mg/dl (1.7-2.4); Potassium 3.2 mmol/L (3.5-5.1); Sodium 133 mmol/L (136-145)
--- NOTE | 2022-07-01 12:59 | CT Scan Report ---
CT head/brain wo con CLINICAL HISTORY: 87 years-old Male with weakness. Acute weakness TECHNIQUE: Multiple axial CT images of the head were obtained without contrast. A dose lowering tech nique was utilized adhering to the principles of ALARA. CT DOSE: 844.62 mGy.cm COMPARISON: None. FINDINGS: No acute intracranial hemorrhage, midline shift, intracranial mass, hydrocephalus, territorial ischem ia or abnormal extra-axial collection. Involutional changes with white matter hypodensities suggestiv e of chronic microvascular ischemic disease. Encephalomalacia of the right parietal, occipital and po sterior right temporal lobes. There are a few punctate associated parenchymal calcifications noted wi thin this distribution. Cerebral vascular calcifications. Motion degraded exam. The calvarium is intact. Rightward bowing and spurring of the nasal septum. Mild polypoid mucosal th ickening of the left maxillary sinus. Mastoid air cells are clear. Prior bilateral lens repair. IMPRESSION: 1. No acute intracranial abnormality. 2. Chronic right cerebral infarct. ACT 112: Negative or not required by law. The above report was generated using voice recognition software. It may contain grammatical, syntax o r spelling errors. Electronically signed by: Manfred Wilder M.D. 07/01/2022 12:56 PM
[2022-07-01 13:07] LABS: Appearance Urine Clear (Clear); Bilirubin Urine Negative (Negative); Blood Urine Negative (Negative); Color Urine Yellow; Glucose Urine UA Negative (Negative); Ketones Urine Negative (Negative); Leukocyte Esterase Urine Negative (Negative); Nitrite Urine Negative (Negative); Protein Urine Negative (Negative); Specific Gravity Urine 1.009 (1.000-1.030); Urobilinogen Urine Negative (Negative)
[2022-07-01 13:07] LABS: INR 1.1 (0.9-1.1); Partial Thromboplastin Time 26.5 Seconds (21.0-31.0); Prothrombin Time 11.7 Seconds (9.0-12.0)
[2022-07-01 13:08] LABS: Troponin I High Sensitivity 113.1 pg/ml (0-20)
[2022-07-01 13:15] LABS: Influenza A virus by PCR Negative (Neg); Influenza B virus by PCR Negative (Neg); RSV by PCR Negative (Neg)
[2022-07-01 13:23] LABS: SARS CoV2 RNA(COVID-19) Ceph POSITIVE (Negative)
[2022-07-01] MEDS ORDERED: POTASSIUM CHLORIDE CRTAB 20 MEQ TABCR PO STA ×2 (14:22→14:37)
--- NOTE | 2022-07-01 14:51 | Electrocardiogram Report ---
Test Reason : Blood Pressure : / mmHG Vent. Rate : 081 BPM Atrial Rate : 081 BPM P-R Int : 234 ms QRS Dur : 096 ms QT Int : 412 ms P-R-T Axes : 058 -14 162 degrees QTc Int : 478 ms Sinus rhythm with 1st degree A-V block with occasional Premature ventricular complexes Left atrial enlargement Left ventricular hypertrophy with repolarization abnormality Abnormal ECG When compared with ECG of 06-DEC-2021 11:39, Premature ventricular complexes are now Present Premature atrial complexes are no longer Present LA interval has increased T wave inversion more evident in Lateral leads Confirmed by José Luis Hills ([id number]) on 07/01/2022 2:50:41 PM Referred By: NO PCP Confirmed By:José Luis Hills
--- NOTE | 2022-07-01 14:52 | History & Physical Report ---
Date of Service July 01, 2022 Assessment & Plan (1) Generalized muscle weakness: (2) Elevated troponin I level: (3) Lab test positive for detection of COVID-19 virus: (4) Hypokalemia: (5) Chronic kidney disease: (6) Chronic combined systolic and diastolic CHF (congestive heart failure): Plan This is an 87-year-old male who has significant past medical history of CAD status post CABG in 1995, chronic diastolic and systolic heart failure, HTN, HLD, PAD, carotid artery disease status post endarterectomy, anemia of chronic disease and CKD stage IIIb who presents to ED secondary to weakness x2 days. Generalized muscle SARS-CoV-2 Elevated troponin CAD with history of CABG Chronic systolic and diastolic CHF CKD stage IIIb Admit to telemetry Weakness likely multifactorial in setting of SARS-CoV-2 and mild prerenal azotemia He does not meet criteria for SARS-CoV-2 Obtain inflammatory markers ESR, CRP, LDH, ferritin and D-dimer Cycle troponin, obtain echocardiogram Repeat EKG Obtain CT chest to further delineate findings on chest x-ray, on exam he appears dry and not volume overload as well as renal function Consult nephrology -patient will establish with Dr. Alfaro, will defer to them regarding further diuretic Patient did take 1 mg of Bumex today, recently had increased to 1 mg 3 times daily will hold further bumex dosing until eval but nephro PT/OT pt may need rehab/placement replace potassium continue all other home meds Covid precautions Anemia of chronic disease h/h stable receives aranesp iron supplement DVT ppx: Xarelto, plavix FULL CODE PCP: Ira Sharma PA Dispo: tele, pt may need placement, lives alone, unable to care for self w/o assistance A total of 100 minutes was spent with greater than 50% of that time personally viewing all current laboratory work and diagnostic imaging studies obtained in the ED. Additionally, I was able to view the patients past medication reconciliation and history with direct visualization in the patients chart. Included in the time above, a portion of that time was spent assessing the patient while discussing and collaborating with specialists, if necessary, and making medical decision making on treatment plan. All of the above was collaborated with Dr. Mar. Please see addendum for further details. History of Present Illness Chief Complaint: Weakness x2 days Primary Care Provider: Panchito Anguiano PA-C This is an 87-year-old male who has significant past medical history of CAD status post CABG in 1995, chronic diastolic and systolic heart failure, HTN, HLD, PAD, carotid artery disease status post endarterectomy, anemia of chronic disease and CKD stage IIIb who presents to ED secondary to weakness x2 days. Patient's nephew is at bedside. He had been in his normal state of health until 2 days ago. He complains of overall generalized weakness and difficulty getting around. He does live alone at home and ambulates with a cane. He typically is not independent of his ADLs and previously had assistance with this, although this has since stopped. He denies any recent illness. He does have sick contact with his nephew who tested positive for COVID. He denies any fever, chills, sweats, lightheadedness, syncope, chest pain, shortness of breath at rest, cough, hemoptysis, nausea, vomiting, abdominal pain, dysuria, increased urgency or frequency with urination, melena or hematochezia. His last bowel movement was 2 days ago and he is requesting stool softener. He states he does use 3.5 L of oxygen at night. He does not require any during the day. Overall appetite has been decreased over the last 2 days due to inability to get around. [place]. He denies any recent tick bites. He denies any new rash. He does follow with nephrology closely as well as PCP. Nephew at bedside states Bumex recently got increased from twice daily to 3 times a day approximately 2 weeks ago. At that time he was having increasing shortness of breath and swelling. Patient denies any swel ling, orthopnea or PND. He does sleep in a recliner for this is difficult for him to tell. In ED patient was hemodynamically stable. He was not requiring any oxygen. His H&H was stable at 11.2 and 34.8 and approximately 1 week ago received Aranesp via nephrology. His CMP revealed sodium 133, K3.2, chloride 88, CO2 35, BUN 117, creatinine 2.56, glucose 126 and Trop 113.1. EKG did reveal lateral ST depressions. Patient did not any chest pain. Urinalysis was negative and SARS-CoV-[address] revealed prior right-sided cerebral infarct. Chest x-ray with pleural effusions and concern for pulmonary edema. Allergies Allergy/AdvReac Type Severity Reaction Status Date / Time doxazosin [From Cardura] Allergy Intermediate HIVES and Verified 06/26/22 09:45 ITCHING furosemide [From Lasix] Allergy Intermediate HIVES and Verified 06/26/22 09:45 ITCHING hydrochlorothiazide Allergy Intermediate ITCHING Verified 06/26/22 09:45 potassium chloride Allergy Intermediate HIVES and Verified 06/26/22 09:45 ITCHING clonidine Allergy Unknown Unknown Verified 06/26/22 09:45 ketorolac [From Toradol] AdvReac Severe ACUTE Verified 06/26/22 09:45 KIDNEY INJURY lisinopril AdvReac Intermediate COUGH Verified 06/26/22 09:45 Home Medications Medication Instructions Recorded Confirmed Type ascorbic acid (vitamin C) 1,000 mg 1 g PO DAILY #120 tabs 11/24/20 07/01/22 Rx tablet carvedilol 12.5 mg tablet 12.5 mg PO BID #60 tabs 11/24/20 07/01/22 Rx dutasteride 0.5 mg capsule 0.5 mg PO DAILY #30 caps 11/24/20 07/01/22 Rx ezetimibe 10 mg tablet 10 mg PO DAILY #30 tabs 11/24/20 07/01/22 Rx magnesium oxide 400 mg PO DAILY #30 caps 11/24/20 07/01/22 Rx nitroglycerin 0.4 mg sublingual 0.4 mg sublingual Q5M PRN chest 11/24/20 07/01/22 Rx tablet (Nitrostat) pain #1 tab rivaroxaban 2.5 mg tablet (Xarelto) 2.5 mg PO BID #60 tabs 11/24/20 07/01/22 Rx rosuvastatin 5 mg tablet 5 mg PO DAILY #30 tabs 11/24/20 07/01/22 Rx tamsulosin 0.4 mg capsule 0.8 mg PO DAILY #30 caps 11/24/20 07/01/22 Rx triamcinolone acetonide 0.1 % 1 applic topical TID PRN itching 11/24/20 07/01/22 Rx topical cream #15 grams vitamin B12 500 mcg-folic acid 400 1 tab PO DAILY #30 tabs 11/24/20 07/01/22 Rx mcg tablet docusate sodium 100 mg capsule 100 mg PO BID 12/06/20 07/01/22 History (Colace) zinc 50 mg tablet 50 mg PO DAILY 12/06/20 07/01/22 History folic acid 400 mcg tablet 400 mcg PO QAM #30 tabs 08/31/21 07/01/22 Rx menthol 0.44 %-zinc oxide 20.6 % 1 applic topical TID PRN skin 09/05/21 07/01/22 Rx topical ointment (Calmoseptine) irritation #113 grams cholecalciferol (vitamin D3) 50 50 mcg PO DAILY 09/25/21 07/01/22 History mcg (2,000 unit) tablet (Vitamin D3) potassium chloride 20 mEq 40 meq PO DAILY 09/25/21 07/01/22 History tablet,extended release(part/cryst) darbepoetin lizzy in polysorbat 60 60 mcg subcut .COMPLEX #1 mL 10/03/21 07/01/22 Rx mcg/mL in polysorbate injection (Aranesp) hydralazine 25 mg tablet 25 mg PO BID #90 tabs 10/17/21 07/01/22 Rx omega-3 fatty acids 1,000 mg 2,000 mg PO BID 11/28/21 07/01/22 History capsule Saccharomyces boulardii 250 mg 250 mg PO DAILY #10 caps 12/08/21 07/01/22 Rx capsule (Florastor) spironolactone 25 mg tablet 12.5 mg PO DAILY #30 tabs 12/08/21 07/01/22 Rx clopidogrel 75 mg tablet 75 mg PO DAILY #30 tabs 04/03/22 07/01/22 Rx ferric citrate 210 mg iron tablet 210 mg PO BID #180 tabs 04/03/22 07/01/22 Rx (Auryxia) bumetanide 2 mg tablet 1 mg PO TID 06/26/22 07/01/22 History Past Med/Surg History Medical History Carotid stenosis Diastolic CHF, chronic DVT prophylaxis Hearing loss Hematuria HTN (hypertension) Hyperlipidemia Nephrolithiasis Osteoarthritis PAD (peripheral artery disease) Surgical History H/O endarterectomy H/O lithotripsy Hx of CABG S/P colonoscopic polypectomy S/P total knee arthroplasty left Family History Denies family history of Diabetes Kidney disease Social History Smoking Status: Never smoker Hx Alcohol Use: No Hx Substance Use: No Preferred Language: Maltese Communication Ability: Effective Hearing Ability: Hard of Hearing Block Inspector Required: No Beliefs That Will Affect Care: None Current Living Situation: Alone current occupational status: retired Other Information That Helps Us Care for You: No Feels Safe at Home: Yes Safety Concerns: Feels Safe At This Time Assistive Devices: Cane, Oxygen - at Night and Walker Review of Systems Review of Systems: All systems reviewed & are unremarkable except as noted in HPI & below Physical Exam Physical Exam: Constitutional: Elderly, fraile, M, sitting at bedside, vitals as above, NAD, conversing easily Head: Normocephalic, Atraumatic Eyes: PERRL, conjunctivae normal, anicteric sclerae ENMT: +[place], external ear and nose normal, oropharynx normal dry membranes Neck: trachea midline, no thyromegaly normal visual inspection Respiratory: normal respiratory effort, lungs clear to auscultation, no wheeze, rales, rhonchi. Normal insp/exp effort, no accessory muscle use Cardiovascular: RRR, + murmur, b/l venous stasis changes, no edema Vessels: no JVD or carotid bruit Chest: normal inspection of chest + sternal scar Abdomen: normal bowel sounds, soft, nontender, no hepatosplenomegaly Musculoskeletal: no cyanosis or clubbing, AROM x 4 Skin: no rashes, warm and dry mild turgor Neurologic: PERRL, EOMI, accommodation nl, no face palsy, no dysarthria CN's II-XI intact bilaterally and moves all extremities Psychiatric: A+Ox3, euthymic affect Lymphatic: no cervical or axillary lymphadenopathy : deferred Results & Data Results & Data ([facility]) Vital Signs (Past 12 Hours) Vital Signs Temp Pulse Pulse Resp BP BP Pulse Ox 07/01/22 13:00 82 18 140/68 94 07/01/22 12:30 07/01/22 12:30 07/01/22 12:06 07/01/22 12:24 83 07/01/22 11:44 36.4 C L 73 19 122/61 97 O2 Del Method 07/01/22 13:00 Room Air 07/01/22 12:30 Room Air 07/01/22 12:30 Room Air 07/01/22 12:06 Room Air 07/01/22 12:24 07/01/22 11:44 Room Air Diagnostic Findings Short CBC 07/01/22 Range/Units 12:25 WBC 8.69 (4.8-10.8) K/ul Hgb 11.2 L (14.0-18.0) g/dl Hct 34.8 L (42.0-52.0) % Plt Count 256 (130-400) K/uL BMP 07/01/22 12:25 Sodium 133 L Potassium 3.2 L Chloride 88 L Carbon Dioxide 35 H BUN 117 H Creatinine 2.56 H Glucose 126 H Calcium 9.9 Liver Function 07/01/22 Range/Units 12:25 Total Bilirubin 0.8 (0.2-1.0) mg/dl AST 25 (13-39) U/L ALT 25 (7-52) U/L Alkaline Phosphatase 138 H (34-104) U/L Albumin 3.9 (3.4-5.0) gm/dl Urine 07/01/22 Range/Units 12:53 Urine Color Yellow Urine Appearance Clear (Clear) Urine pH 7.0 (4.5-7.5) Ur Specific [place] 1.009 (1.000-1.030) Urine Protein Negative (Negative) Urine Glucose (UA) Negative (Negative) ECG Rate (beats per minute): 81 Additional Comments: QTc 470 ms Sinus rhythm with first-degree AV block, PVC New ST depressions in V4 to V6, T wave inversion in 1 viewed by me COVID-19 Results Results COVID-19 Adm Lab Results: RBC 4.28 M/uL (4.70-6.10) L 07/02/22 WBC 8.16 K/ul (4.8-10.8) 07/02/22 Hgb 11.2 g/dl (14.0-18.0) L 07/02/22 Hct 35.0 % (42.0-52.0) L 07/02/22 Plt Count 268 K/uL (130-400) 07/02/22 Neutrophils (%) (Auto) 82.7 % 07/02/22 Lymphocytes (%) (Auto) 6.4 % 07/02/22 Monocytes # (Auto) 0.73 K/uL (0.11-0.59) H 07/02/22 Eosinophils # (Auto) 0.10 K/uL (0-0.50) 07/02/22 Immature Granulocyte % (Auto) 0.4 % 07/02/22 Neutrophils # (Auto) 6.75 K/uL (1.40-6.50) H 07/02/22 Lymphocytes # (Auto) 0.52 K/uL (1.2-3.4) L 07/02/22 Monocytes # (Auto) 0.73 K/uL (0.11-0.59) H 07/02/22 Eosinophils # (Auto) 0.10 K/uL (0-0.50) 07/02/22 Basophils # (Auto) 0.03 K/uL (0-0.2) 07/02/22 Immature Granulocyte # (Auto) 0.03 K/uL (0.01-0.20) 3 Na 135 mmol/L (136-145) L 07/02/22 K 3.2 mmol/L (3.5-5.1) L 07/02/22 Cl 89 mmol/L (98-107) L 07/02/22 CO2 35 mmol/L (21-32) H 07/02/22 Anion Gap 11 (3-11) 07/02/22 BUN 115 mg/dl (6-23) H 07/02/22 Creatinine 2.43 mg/dl (0.6-1.4) H 07/02/22 BUN/Creatinine Ratio 47.3 (10-20) H 07/02/22 Glucose Level 133 mg/dl (70-99(Fasting)) H 07/02/22 Ca 10.2 mg/dl (8.5-10.1) H 07/02/22 Total Bilirubin 1.0 mg/dl (0.2-1.0) 07/02/22 AST/SGOT 23 U/L (13-39) 07/02/22 ALT/SGPT 23 U/L (7-52) 07/02/22 Alkaline Phosphatase 125 U/L (34-104) H 07/02/22 Total Protein 8.1 gm/dl (6.0-8.3) 07/02/22 Albumin 3.9 gm/dl (3.4-5.0) 07/02/22 Globulin 4.2 gm/dl (2.5-4.0) H 07/02/22 Albumin/Globulin Ratio 0.9 (0.9-2) 07/02/22 LDH 241 U/L (86-244) 07/01/22 CRP 0.94 mg/dl (0-0.5) H 07/01/22 Ferritin 168.1 ng/ml (8-388) 07/01/22 D-Dimer 1420 ug/L FEU (0-500) H* 07/01/22 PTT 26.5 Seconds (21.0-31.0) 07/01/22 INR 1.1 (0.9-1.1) 07/01/22 COVID-19 PCR POSITIVE (Negative) A* 07/01/22 Influenza Virus Type A (PCR) Negative (Neg) 07/01/22 Influenza Virus Type B (PCR) Negative (Neg) 07/01/[address] 07/01/22 Chest X-Ray 07/01/22 Code Status & VTE Plan Code Status FULL CODE VTE Prophylaxis Plan VTE Prophylaxis will be ordered: No Reason for no VTE drug order: Treatment not tolerated Supervising Physician Co-Signing Physician Notes Patient was seen and examined independently. Chart reviewed. Case discussed with JESSI. Agree with assessment and plan as above (5) Chronic kidney disease Chronic kidney disease stage: unspecified stage Qualified Code(s): N18.9 - Chronic kidney disease, unspecified
[2022-07-01 15:02] LABS: C Reactive Protein 0.94 mg/dl (0-0.5)
[2022-07-01 15:06] LABS: D Dimer 1420 ug/L FEU (0-500)
[2022-07-01 15:10] LABS: Troponin I High Sensitivity 97.6 pg/ml (0-20)
[2022-07-01 15:23] LABS: Ferritin 168.1 ng/ml (8-388)
[2022-07-01] MEDS ORDERED: MAGNESIUM HYDROXIDE SUSP 30 ML UDC PO PRN (15:51)
[2022-07-01] MEDS ORDERED: ALUMINUM/MAGNESIUM SUSP 30 ML UDC PO PRN (15:51)
--- NOTE | 2022-07-01 16:28 | CT Scan Report ---
CT chest diagnostic wo con CT DOSE: 231.85 mGy.cm CLINICAL HISTORY: 87 years-old Male with pleural effusion, ? pulm edema. Acute shortness of breath TECHNIQUE: Multiaxial CT images of the chest were performed without contrast. A dose lowering techni que was utilized adhering to the principles of ALARA. COMPARISON: Chest CT 08/28/2021 FINDINGS: Remarkable thyroid. Cardiomegaly with prior median sternotomy. Extensive [place] coronary ar pedro calcifications. Prior CABG. Atherosclerosis of the aorta without aneurysm. Degree of stenosis is suggested within the subclavian and innominate arteries. Small left with moderate right pleural effu sions. Intralobular septal thickening with intermixed groundglass densities. Mild dependent bibasilar consolidation, most pronounced in the right lower lobe. There are a few ill-defined nodular consolid ative foci measuring up to 5 mm the left lower lobe on image 127. Mild mediastinal and hilar lymphadenopathy with a few calcified lymph nodes. Gynecomastia. Unremarkab le soft tissues. Healed chronic anterior rib fractures. No acute process of the right upper abdomen. IMPRESSION: 1. Cardiomegaly with pulmonary edema. 2. Small left and moderate right pleural effusions and right greater than left dependent bibasilar co nsolidation favoring atelectasis. Pneumonia considered less likely. 3. There are a few scattered nodular consolidative subcentimeter foci within the lungs, likely infect ious or inflammatory. 4. Mild lymphadenopathy. ACT 112: Negative or not required by law. Electronically signed by: Manfred Wilder M.D. 07/01/2022 4:24 PM
[2022-07-01] MEDS: RIVAROXABAN 2.5 MG TAB PO SCH (20:28)
[2022-07-01] MEDS: AMMONIUM LACTATE 12% LOTION 225 GM BTL EXT SCH (20:28)
[2022-07-01] MEDS: carvediloL 12.5 MG TAB PO SCH (20:29)
[2022-07-01] MEDS: hydrALAZINE HCL 25 MG TAB PO SCH (20:29)
[2022-07-01] MEDS: OMEGA-3 (PURIFIED FISH OIL) 1 GM CAP PO SCH (20:29)
[2022-07-02 08:00] LABS: Basophils # (auto) 0.03 K/uL (0-0.2); Basophils % (auto) 0.4 %; Eosinophils % (auto) 1.2 %; Hemoglobin 11.2 g/dl (14.0-18.0); Immature Granulocytes # (auto) 0.03 K/uL (0.01-0.20); Immature Granulocytes % (auto) 0.4 %; Lymphocytes # (auto) 0.52 K/uL (1.2-3.4); Lymphocytes % (auto) 6.4 %; Mean Corpuscular Hemoglobin 26.2 pg (25.0-34.0); Mean Corpuscular Volume 81.8 fL (80.0-100.0); Mean Platelet Volume 10.4 fL (9.4-12.4); Monocytes # (auto) 0.73 K/uL (0.11-0.59); Monocytes % (auto) 8.9 %; Neutrophils # (auto) 6.75 K/uL (1.40-6.50); Neutrophils % (auto) 82.7 %; Platelet Count 268 K/uL (130-400); RDW Standard Deviation 56.1 fL (36.4-46.3); Red Blood Count 4.28 M/uL (4.70-6.10); White Blood Count 8.16 K/ul (4.8-10.8)
[2022-07-02 08:10] LABS: Albumin Globulin Ratio 0.9 (0.9-2); Albumin Level 3.9 gm/dl (3.4-5.0); BUN Creatinine Ratio 47.3 (10-20); Calcium 10.2 mg/dl (8.5-10.1); Creatinine Clr Calc Pharmacy 19.7 ml/min; Est GFR (African American) 26.9 ml/min; Est GFR (Non-African American) 23.2 ml/min; Globulin 4.2 gm/dl (2.5-4.0); Magnesium 2.5 mg/dl (1.7-2.4); Potassium 3.2 mmol/L (3.5-5.1); Total Protein 8.1 gm/dl (6.0-8.3)
[2022-07-02] MEDS ORDERED: FOLIC ACID 400 MCG TAB PO SCH (09:00)
[2022-07-02] MEDS: AMMONIUM LACTATE 12% LOTION 225 GM BTL EXT SCH ×2 (09:10→21:13)
[2022-07-02] MEDS: CHOLECALCIFEROL 1,000 UNITS 25 MCG TAB PO SCH (09:11)
[2022-07-02] MEDS: TAMSULOSIN HCL 0.4 MG CAP PO SCH (09:11)
[2022-07-02] MEDS: CYANOCOBALAMIN (B-12) 500 MCG TABLET PO SCH (09:11)
[2022-07-02] MEDS: RIVAROXABAN 2.5 MG TAB PO SCH ×2 (09:11→21:16)
[2022-07-02] MEDS: OMEGA-3 (PURIFIED FISH OIL) 1 GM CAP PO SCH ×2 (09:11→21:14)
[2022-07-02] MEDS: CLOPIDOGREL BISULFATE 75 MG TAB PO SCH (09:11)
[2022-07-02] MEDS: carvediloL 12.5 MG TAB PO SCH ×2 (09:11→21:15)
[2022-07-02] MEDS: SPIRONOLACTONE 12.5 MG TAB PO SCH (09:11)
[2022-07-02] MEDS: hydrALAZINE HCL 25 MG TAB PO SCH ×2 (09:11→21:14)
[2022-07-02] MEDS: ASCORBIC ACID 500 MG TAB PO SCH (09:11)
[2022-07-02] MEDS: SACCHAROMYCES BOULARDII 250 MG CAP PO SCH (09:11)
[2022-07-02] MEDS: MAGNESIUM OXIDE 400 MG TAB PO SCH (09:11)
[2022-07-02] MEDS: EZETIMIBE 10 MG TABLET PO SCH (09:11)
[2022-07-02] MEDS: FOLIC ACID 400 MCG TAB PO SCH (09:11)
[2022-07-02] MEDS: ROSUVASTATIN CALCIUM 5 MG TAB PO SCH (09:11)
[2022-07-02] MEDS: POTASSIUM CHLORIDE CRTAB 20 MEQ TABCR PO SCH (09:11)
[2022-07-02] MEDS: POLYETHYLENE (MIRALAX) 17 GM PACK PO PRN (13:15)
--- NOTE | 2022-07-02 16:02 | Nephrology Consultation ---
Date of Consultation July 02, 2022 Assessment & Plan (1) DILIP (acute kidney injury): (2) Hypokalemia: (3) Chronic combined systolic and diastolic CHF (congestive heart failure): (4) Generalized muscle weakness: Plan 87 y o m with stage 3b/4 CKD, b/l cr has been quite variable over the years from creatinine II 0.0-2.5. No proteinuria hematuria. Renal imaging was otherwise unremarkable with nonobstructing nephrolithiasis. Has chronic congestive heart failure with systolic and diastolic dysfunction, recently diuretics was increased to Bumex 1 mg t.i.d. 2 weeks ago. Admitted with generalized weakness and noted to be positive for COVID. Noted to have DILIP with creatinine 2.6 and BUN 115 with hypokalemia, suggestive of some component of volume depletion although chest x-ray showed bilateral pleural effusion pulmonary congestion. Troponin noted to be high but asymptomatic. Clinically looks volume depleted. --agree with holding Bumex for now --accurate intake and output off of diuretics --monitor renal function and electrolytes, already received KCL supplement Thank you for allowing me to participate in your patient's care. It was a pleasure to see the Carter. History of Present Illness Reason for Consultation: Acute kidney injury, diuretic management. Attending Physician: Velma Mar MD History of Present Illness Mr. Ej Ang is a 87-year-old male with PMH of stage 3B/4 CKD, CAD s/p CABG in 1995, chronic diastolic and systolic CHF, HTN, HLD, PAD admitted with SOB, pl effusion, pulmonary edema and COVID 19. Nephrology consult was requested to manage DILIP with h/o CKD and diuretics management. Carter presented to ER with generalized weakness and difficulty getting around for 2 days.In ER he was tested positive for COVID, had contact with a family member with COVID. He denies any fever, chills, night sweats, lightheadedness, syncope. He reports normal p.o. intake at home, has been voiding normally. No NSAID use at home. Has been taking Bumex 1 mg t.i.d. for chronic congestive heart failure, the dose was increased just 2 weeks ago because of persistent vol ume overload. Lab showed BUN 117, creatinine 2.6. Initial Troponin was 113-->574. BNP was elevated above 2000. urine analysis was negative for proteinuria, hematuria pyuria. Prior renal imaging in August 2021 showed nonobstructing renal calculi and simple cyst but otherwise unremarkable. EKG showed lateral ST depressions. chest x-ray was concerning for pulmonary vascular congestion and had bilateral pleural effusion small left and moderate right pleural effusion. diuretics has been on hold since admission. 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 h/o carotid stenosis s/p Right carotid endarterectomy in 2003 and left in 2008 as well as CAD s/p CABG x 4v at [facility] in 1995. Ej has not had a significant history of hypertension or diabetes mellitus. He has has chronic HFpEF. Volume status has been controlled with Bumex 1 mg TID lately. Has a very sedentary lifestyle, limited by OA/DJD and uses a cane to ambulate. He denies significant shortness of breath or chest pain this morning. Has been afebrile overnight. Has been having decent urine output. Allergies Allergy/AdvReac Type Severity Reaction Status Date / Time doxazosin [From Cardura] Allergy Intermediate HIVES and Verified 06/26/22 09:45 ITCHING furosemide [From Lasix] Allergy Intermediate HIVES and Verified 06/26/22 09:45 ITCHING hydrochlorothiazide Allergy Intermediate ITCHING Verified 06/26/22 09:45 potassium chloride Allergy Intermediate HIVES and Verified 06/26/22 09:45 ITCHING clonidine Allergy Unknown Unknown Verified 06/26/22 09:45 ketorolac [From Toradol] AdvReac Severe ACUTE Verified 06/26/22 09:45 KIDNEY INJURY lisinopril AdvReac Intermediate COUGH Verified 06/26/22 09:45 Home Medications Medication Instructions Recorded Confirmed Type ascorbic acid (vitamin C) 1,000 mg 1 g PO DAILY #120 tabs 11/24/20 07/01/22 Rx tablet carvedilol 12.5 mg tablet 12.5 mg PO BID #60 tabs 11/24/20 07/01/22 Rx dutasteride 0.5 mg capsule 0.5 mg PO DAILY #30 caps 11/24/20 07/01/22 Rx ezetimibe 10 mg tablet 10 mg PO DAILY #30 tabs 11/24/20 07/01/22 Rx magnesium oxide 400 mg PO DAILY #30 caps 11/24/20 07/01/22 Rx nitroglycerin 0.4 mg sublingual 0.4 mg sublingual Q5M PRN chest 11/24/20 07/01/22 Rx tablet (Nitrostat) pain #1 tab rivaroxaban 2.5 mg tablet (Xarelto) 2.5 mg PO BID #60 tabs 11/24/20 07/01/22 Rx rosuvastatin 5 mg tablet 5 mg PO DAILY #30 tabs 11/24/20 07/01/22 Rx tamsulosin 0.4 mg capsule 0.8 mg PO DAILY #30 caps 11/24/20 07/01/22 Rx triamcinolone acetonide 0.1 % 1 applic topical TID PRN itching 11/24/20 07/01/22 Rx topical cream #15 grams vitamin B12 500 mcg-folic acid 400 1 tab PO DAILY #30 tabs 11/24/20 07/01/22 Rx mcg tablet docusate sodium 100 mg capsule 100 mg PO BID 12/06/20 07/01/22 History (Colace) zinc 50 mg tablet 50 mg PO DAILY 12/06/20 07/01/22 History folic acid 400 mcg tablet 400 mcg PO QAM #30 tabs 08/31/21 07/01/22 Rx menthol 0.44 %-zinc oxide 20.6 % 1 applic topical TID PRN skin 09/05/21 07/01/22 Rx topical ointment (Calmoseptine) irritation #113 grams cholecalciferol (vitamin D3) 50 50 mcg PO DAILY 09/25/21 07/01/22 History mcg (2,000 unit) tablet (Vitamin D3) potassium chloride 20 mEq 40 meq PO DAILY 09/25/21 07/01/22 History tablet,extended release(part/cryst) darbepoetin lizzy in polysorbat 60 60 mcg subcut .COMPLEX #1 mL 10/03/21 07/01/22 Rx mcg/mL in polysorbate injection (Aranesp) hydralazine 25 mg tablet 25 mg PO BID #90 tabs 10/17/21 07/01/22 Rx omega-3 fatty acids 1,000 mg 2,000 mg PO BID 11/28/21 07/01/22 History capsule Saccharomyces boulardii 250 mg 250 mg PO DAILY #10 caps 12/08/21 07/01/22 Rx capsule (Florastor) spironolactone 25 mg tablet 12.5 mg PO DAILY #30 tabs 12/08/21 07/01/22 Rx clopidogrel 75 mg tablet 75 mg PO DAILY #30 tabs 04/03/22 07/01/22 Rx ferric citrate 210 mg iron tablet 210 mg PO BID #180 tabs 04/03/22 07/01/22 Rx (Auryxia) bumetanide 2 mg tablet 1 mg PO TID 06/26/22 07/01/22 History Patient History Medical History Carotid stenosis Diastolic CHF, chronic DVT prophylaxis Hearing loss Hematuria HTN (hypertension) Hyperlipidemia Nephrolithiasis Osteoarthritis PAD (peripheral artery disease) Surgical History H/O endarterectomy H/O lithotripsy Hx of CABG S/P colonoscopic polypectomy S/P total knee arthroplasty left Family History Denies family history of Diabetes Kidney disease Social History Smoking Status: Never smoker Hx Alcohol Use: No Hx Substance Use: No Preferred Language: German Communication Ability: Effective Hearing Ability: Hard of Hearing [place] P[place] Required: No Beliefs That Will Affect Care: None Current Living Situation: Alone current occupational status: retired Other Information That Helps Us Care for You: No Feels Safe at Home: Yes Safety Concerns: Feels Safe At This Time Assistive Devices: Cane, Oxygen - at Night and Walker Review of Systems Review of Systems: Detail ROS was otherwise unremarkable. Physical Exam Constitutional: WD/WN, vitals as above + ill appearing; no acute distress Eyes: + anicteric sclerae Neck: normal visual inspection Thyroid: no thyromegaly Respiratory: no respiratory distress Auscultation: + diminished lung sounds; no crackles and no wheezes Gastrointestinal (Abdomen): Inspection/Auscultation: abdomen normal to inspection Percussion/Palpation: abdomen soft; abdomen nontender Musculoskeletal: Extremities: extremities normal to inspection Skin: no rashes Neurologic: no focal motor deficits Psychiatric: Orientation: alert and oriented x 3 Affect: euthymic affect Results & Data ([facility]) Vital Signs (Past 12 Hours) Vital Signs Temp Pulse Resp BP Pulse Ox O2 Del Method 07/02/22 15:24 Room Air 07/02/22 11:24 36.3 C L 64 17 118/57 L 97 Room Air 07/02/22 07:51 36.4 C L 60 17 122/68 97 Room Air PG Care Time/CCT Total # of Minutes Spent Total Time Spent with Patient: Total time spent is greater than 50% in coordination of care (as documented) at patient's floor/unit and/or counseling patient: Coding Level of Care Code 55587 INT INP/OBS CARE 375MIN Diagnoses DILIP (acute kidney injury) N17.9 Hypokalemia E87.6 Chronic combined systolic and diastolic CHF (congestive heart failure) I50.42 Generalized muscle weakness M62.81
[2022-07-02] MEDS: FINASTERIDE 5 MG TAB PO SCH (16:31)
--- NOTE | 2022-07-02 17:55 | Hospitalist Progress Note ---
Date of Service July 02, 2022 Assessment & Plan (1) Generalized muscle weakness: (2) Elevated troponin I level: (3) Lab test positive for detection of COVID-19 virus: (4) Hypokalemia: (5) Chronic kidney disease: (6) Chronic combined systolic and diastolic CHF (congestive heart failure): Plan This is an 87-year-old male who has significant past medical history of CAD status post CABG in 1995, chronic diastolic and systolic heart failure, HTN, HLD, PAD, carotid artery disease status post endarterectomy, anemia of chronic disease and CKD stage IIIb who presents to ED secondary to weakness x2 days. SARS-CoV-2 Elevated troponin CAD with history of CABG Chronic systolic and diastolic CHF Admit to telemetry Weakness likely multifactorial in setting of SARS-CoV-2 and mild prerenal azotemia No hypoxia, he does not need remdesivir or decadron Elevated inflammatory markers CT chest shows bilateral pleural effusions, no evidence of respiratory distress or hypoxia Generalized weakness -PT eval today, report reviewed DILIP on CKD stage 3b -holding bumex for now -Management per Nephrology Anemia of chronic disease h/h stable receives aranesp iron supplement DVT ppx: Xarelto, plavix FULL CODE PCP: Ira Sharma PA Dispo: Likely return home with HH PT depending on hospital course Admission and Anticipated Discharge Date Admission Date: July 01, 2022 Subjective No issues. Patient denies chest pain, shortness of breath. Per nursing, patient is moving around in his room with no difficulty. worked with PT today. He has been focused on having a bowel movement and being near toilet Physical Exam Physical Exam: Sitting on toilet so full exam was deferred. No acute distress Respiratory: breathing comfortably on room air Cardiovascular: On telemetry, sinus rhythm Neurologic: awake, alert, ambulating in room, spontaneously moving extremities Psychiatric: calm Results & Data Results & Data ([facility]) Vital Signs (Past 12 Hours) Vital Signs Temp Pulse Resp BP Pulse Ox O2 Del Method 07/02/22 16:31 36.5 C 74 20 120/62 99 Room Air 07/02/22 15:24 Room Air 07/02/22 11:24 36.3 C L 64 17 118/57 L 97 Room Air 07/02/22 07:51 36.4 C L 60 17 122/68 97 Room Air (5) Chronic kidney disease Chronic kidney disease stage: unspecified stage Qualified Code(s): N18.9 - Chronic kidney disease, unspecified
--- NOTE | 2022-07-03 05:12 | Electrocardiogram Report ---
Test Reason : Blood Pressure : / mmHG Vent. Rate : 080 BPM Atrial Rate : 080 BPM P-R Int : 236 ms QRS Dur : 102 ms QT Int : 438 ms P-R-T Axes : 054 -12 150 degrees QTc Int : 505 ms Poor data quality, interpretation may be adversely affected Sinus rhythm with 1st degree A-V block with occasional Premature ventricular complexes Left ventricular hypertrophy with repolarization abnormality Prolonged QT Abnormal ECG When compared with ECG of 01-JUL-2022 12:16, No significant change was found Confirmed by Ventura Segura ([id number]) on 07/03/2022 5:11:59 AM Referred By: NO PCP Confirmed By:Ventura Segura
--- NOTE | 2022-07-03 05:27 | Electrocardiogram Report ---
Test Reason : Blood Pressure : / mmHG Vent. Rate : 066 BPM Atrial Rate : 066 BPM P-R Int : 210 ms QRS Dur : 098 ms QT Int : 412 ms P-R-T Axes : 054 -09 175 degrees QTc Int : 431 ms Sinus rhythm with 1st degree A-V block Possible Left atrial enlargement Abnormal ECG When compared with ECG of 01-JUL-2022 15:23, (unconfirmed) Premature ventricular complexes are no longer Present Confirmed by Ventura Segura ([id number]) on 07/03/2022 5:27:26 AM Referred By: NO PCP Confirmed By:Ventura Segura
[2022-07-03 07:36] LABS: Hemoglobin 10.4 g/dl (14.0-18.0); Mean Corpuscular Hemoglobin 26.5 pg (25.0-34.0); Mean Corpuscular Hgb Conc 32.5 g/dL (32.0-36.0); Mean Corpuscular Volume 81.4 fL (80.0-100.0); Mean Platelet Volume 10.7 fL (9.4-12.4); Platelet Count 254 K/uL (130-400); RDW Coefficient of Variation 18.8 % (11.5-14.5); RDW Standard Deviation 56.1 fL (36.4-46.3); Red Blood Count 3.93 M/uL (4.70-6.10); White Blood Count 10.08 K/ul (4.8-10.8)
[2022-07-03 07:52] LABS: BUN Creatinine Ratio 47.2 (10-20); Calcium 9.9 mg/dl (8.5-10.1); Creatinine Clr Calc Pharmacy 20.4 ml/min; Est GFR (Non-African American) 24.1 ml/min; Potassium 3.8 mmol/L (3.5-5.1)
[2022-07-03] MEDS: POLYETHYLENE (MIRALAX) 17 GM PACK PO PRN (08:27)
[2022-07-03] MEDS: EZETIMIBE 10 MG TABLET PO SCH (08:29)
[2022-07-03] MEDS: hydrALAZINE HCL 25 MG TAB PO SCH ×2 (08:29→22:18)
[2022-07-03] MEDS: ROSUVASTATIN CALCIUM 5 MG TAB PO SCH (08:29)
[2022-07-03] MEDS: MAGNESIUM OXIDE 400 MG TAB PO SCH (08:29)
[2022-07-03] MEDS: POTASSIUM CHLORIDE CRTAB 20 MEQ TABCR PO SCH (08:29)
[2022-07-03] MEDS: ASCORBIC ACID 500 MG TAB PO SCH (08:29)
[2022-07-03] MEDS: AMMONIUM LACTATE 12% LOTION 225 GM BTL EXT SCH ×2 (08:29→22:18)
[2022-07-03] MEDS: SACCHAROMYCES BOULARDII 250 MG CAP PO SCH (08:29)
[2022-07-03] MEDS: carvediloL 12.5 MG TAB PO SCH ×2 (08:30→22:18)
[2022-07-03] MEDS: FOLIC ACID 400 MCG TAB PO SCH (08:30)
[2022-07-03] MEDS: FINASTERIDE 5 MG TAB PO SCH (08:30)
[2022-07-03] MEDS: CYANOCOBALAMIN (B-12) 500 MCG TABLET PO SCH (08:30)
[2022-07-03] MEDS: TAMSULOSIN HCL 0.4 MG CAP PO SCH (08:30)
[2022-07-03] MEDS: OMEGA-3 (PURIFIED FISH OIL) 1 GM CAP PO SCH ×2 (08:30→22:18)
[2022-07-03] MEDS: RIVAROXABAN 2.5 MG TAB PO SCH ×2 (08:30→22:18)
[2022-07-03] MEDS: CLOPIDOGREL BISULFATE 75 MG TAB PO SCH (08:31)
[2022-07-03] MEDS: SPIRONOLACTONE 12.5 MG TAB PO SCH (08:31)
[2022-07-03] MEDS: CHOLECALCIFEROL 1,000 UNITS 25 MCG TAB PO SCH (08:31)
--- NOTE | 2022-07-03 09:32 | Electrocardiogram Report ---
Test Reason : Blood Pressure : / mmHG Vent. Rate : 079 BPM Atrial Rate : 079 BPM P-R Int : 240 ms QRS Dur : 096 ms QT Int : 446 ms P-R-T Axes : 061 000 166 degrees QTc Int : 511 ms Sinus rhythm with 1st degree A-V block Left atrial enlargement Left ventricular hypertrophy with repolarization abnormality Prolonged QT Abnormal ECG When compared with ECG of 02-JUL-2022 07:24, QT has lengthened Confirmed by José Luis Hills ([id number]) on 07/03/2022 9:32:17 AM Referred By: NO PCP Confirmed By:José Luis Hills
--- NOTE | 2022-07-03 09:59 | Nephrology Progress Note ---
Date of Service July 03, 2022 Assessment & Plan (1) DILIP (acute kidney injury): (2) Hypokalemia: (3) Chronic combined systolic and diastolic CHF (congestive heart failure): (4) Generalized muscle weakness: (5) Lab test positive for detection of COVID-19 virus: Plan 87 y o m with stage 3b/4 CKD, b/l cr has been quite variable over the years from creatinine II 0.0-2.5. No proteinuria hematuria. Renal imaging was otherwise unremarkable with nonobstructing nephrolithiasis. Has chronic congestive heart failure with systolic and diastolic dysfunction, recently diuretics was increased to Bumex 1 mg t.i.d. 2 weeks ago. Admitted with generalized weakness and noted to be positive for COVID. Noted to have DILIP with creatinine 2.6 and BUN 115 with hypokalemia, suggestive of some component of volume depletion although chest x-ray showed bilateral pleural effusion pulmonary congestion. Troponin noted to be high but asymptomatic. BUN creatinine somewhat stable, potassium improved. Blood pressure acceptable, no respiratory distress, on room air. Decent urine output, net negative off of diuretics. Clinically seems euvolemic. --monitor renal function and electrolytes, accurate intake and output, continue to keep off of diuretics for now as has been having decent urine output and net negative off of diuretics and respiratory status seems stable. Admission and Anticipated Discharge Date Admission Date: July 01, 2022 Bryn Machado was seen and evaluated this morning. He was lying in bed, comfortable, denies any shortness of breath or chest pain. Blood pressure has been well controlled. Decent urine output, net negative. Renal function staying stable, potassium normalized. Complain of constipation but no abdominal pain. Review of Systems Review of Systems: Detail ROS was otherwise unremarkable. Physical Exam Constitutional: WD/WN, vitals as above + ill appearing; no acute distress Eyes: + anicteric sclerae Respiratory: no respiratory distress Auscultation: + diminished lung sounds; no crackles and no wheezes Cardiovascular: Rate/Rhythm: regular rate and regular rhythm Heart Sounds: + murmur Extremities: no edema Skin: no rashes Neurologic: no focal motor deficits Psychiatric: Orientation: alert and oriented x 3 Affect: euthymic affect Results & Data ([facility]) Vital Signs (Past 12 Hours) Vital Signs Temp Pulse Pulse Resp BP Pulse Ox O2 Del Method 03/07/23 09:02 Room Air 07/03/22 07:33 79 07/03/22 05:42 36.8 C 84 18 126/62 93 Room Air 07/03/22 06:02 Room Air 07/03/22 03:26 36.5 C 71 20 112/65 98 Room Air 07/03/22 01:06 75 07/02/22 23:25 36.5 C 73 16 117/63 95 Room Air PG Care Time/CCT Total # of Minutes Spent Total Time Spent with Patient: Total time spent is greater than 50% in coordination of care (as documented) at patient's floor/unit and/or counseling patient: Coding Level of Care Code 99584 SUB INP/OBS CARE 3/50MIN Diagnoses DILIP (acute kidney injury) N17.9 Hypokalemia E87.6 Chronic combined systolic and diastolic CHF (congestive heart failure) I50.42 Generalized muscle weakness M62.81 Lab test positive for detection of COVID-19 virus U07.1
[2022-07-03] MEDS: FERROUS SULFATE 325 MG TAB PO SCH (17:13)
--- NOTE | 2022-07-03 18:11 | Hospitalist Progress Note ---
Date of Service July 03, 2022 Assessment & Plan (1) Generalized muscle weakness: (2) Elevated troponin I level: (3) Lab test positive for detection of COVID-19 virus: (4) Hypokalemia: (5) Chronic kidney disease: (6) Chronic combined systolic and diastolic CHF (congestive heart failure): Plan This is an 87-year-old male who has significant past medical history of CAD status post CABG in 1995, chronic diastolic and systolic heart failure, HTN, HLD, PAD, carotid artery disease status post endarterectomy, anemia of chronic disease and CKD stage IIIb who presents to ED secondary to weakness x2 days. SARS-CoV-2 -CXR shows bilateral pleural effusion but this is chronic -No evidence of hypoxia. Patient with no respiratory symptoms -supportive care for now Elevated troponin CAD with history of CABG Chronic systolic and diastolic CHF -No chest pain, no SOB -troponin elevation on admission to be expected with his CKD and appears chronically elevated -continue Coreg, plavix, spironolactone, rosuvastatin Generalized weakness -PT eval yesterday, will need ongoing assessment to determine dispo plan. DILIP on CKD stage 3b -holding bumex for now -Management per Nephrology. Anemia of chronic disease receives aranesp iron supplement Patient with constipation then with blood streaked stools. Blood streaked stools here is likely due to hemorrhoid from straining. He is unclear about his colonoscopy history. He is on plavix and xarelto. Will ask for GI input DVT ppx: Xarelto, plavix FULL CODE PCP: DR. Anguiano, [place] Dispo: Likely return home with HH PT depending on hospital course Admission and Anticipated Discharge Date Admission Date: July 01, 2022 Subjective Patient with BM today (he has been constipated but finally had a BM) and per nursing BM was blood streaked Patient is on iron and residue in bedside commode, stool appeared very dark. Patient himself with no complaints and remains on room air Physical Exam Physical Exam: Appears frail, elderly, poor historian Respiratory: breathing comfortably on room air, no wheezing Cardiovascular: regular rate and rhythm, no murmurs/rubs Gastrointestinal (Abdomen): soft, non tender Musculoskeletal: no edema Skin: chronic venous stasis skin changes Neurologic: poor historian, awake, alert, has reportedly been ambulating in room with cane Results & Data Results & Data ([place]) Vital Signs (Past 12 Hours) Vital Signs Temp Pulse Pulse Resp BP Pulse Ox O2 Del Method 07/03/22 15:22 67 07/03/22 14:13 36.8 C 79 16 125/80 96 Room Air 07/03/22 11:00 36.6 C 70 16 118/60 99 Room Air 07/03/22 09:02 Room Air 07/03/22 07:33 79 (5) Chronic kidney disease Chronic kidney disease stage: unspecified stage Qualified Code(s): N18.9 - Chronic kidney disease, unspecified
[2022-07-04] MEDS: carvediloL 12.5 MG TAB PO SCH ×2 (08:20→20:01)
[2022-07-04] MEDS: OMEGA-3 (PURIFIED FISH OIL) 1 GM CAP PO SCH ×2 (08:20→20:01)
[2022-07-04] MEDS: AMMONIUM LACTATE 12% LOTION 225 GM BTL EXT SCH ×2 (08:20→20:02)
[2022-07-04] MEDS: hydrALAZINE HCL 25 MG TAB PO SCH ×2 (08:21→20:01)
[2022-07-04] MEDS: RIVAROXABAN 2.5 MG TAB PO SCH ×2 (08:21→20:01)
[2022-07-04] MEDS: CYANOCOBALAMIN (B-12) 500 MCG TABLET PO SCH (08:22)
[2022-07-04] MEDS: SACCHAROMYCES BOULARDII 250 MG CAP PO SCH (08:22)
[2022-07-04] MEDS: ASCORBIC ACID 500 MG TAB PO SCH (08:22)
[2022-07-04] MEDS: ROSUVASTATIN CALCIUM 5 MG TAB PO SCH (08:22)
[2022-07-04] MEDS: SPIRONOLACTONE 12.5 MG TAB PO SCH (08:23)
[2022-07-04] MEDS: TAMSULOSIN HCL 0.4 MG CAP PO SCH (08:23)
[2022-07-04] MEDS: EZETIMIBE 10 MG TABLET PO SCH (08:23)
[2022-07-04] MEDS: CLOPIDOGREL BISULFATE 75 MG TAB PO SCH (08:23)
[2022-07-04] MEDS: CHOLECALCIFEROL 1,000 UNITS 25 MCG TAB PO SCH (08:23)
[2022-07-04] MEDS: FINASTERIDE 5 MG TAB PO SCH (08:24)
[2022-07-04] MEDS: FOLIC ACID 400 MCG TAB PO SCH (08:24)
[2022-07-04] MEDS: FERROUS SULFATE 325 MG TAB PO SCH ×2 (08:24→16:17)
--- NOTE | 2022-07-04 08:35 | Gastrointestinal Consultation ---
Date of Consultation July 04, 2022 Assessment & Plan (1) Lab test positive for detection of COVID-19 virus: (2) Chronic combined systolic and diastolic CHF (congestive heart failure): (3) BRBPR (bright red blood per rectum): Plan This is an 87 y/o male w/ significant PMHx including CAD s/p CABG, CHF, CKD, chronic anemia (baseline HGB around 9), admitted w/ weakness and COVID virus, DILIP, and we are asked to evaluate him as he had large blood-tinged stool yesterday and had some smearing of blood OH earlier today. Before this he had been having some constipation and straining with BMs. His HGB has remained stable and slightly better than baseline and he's had no reported vomiting, hematemesis, melena. He reports having hemorrhoids removed in the past but his endoscopic history is unclear. Before I was able to complete my history and exam he became upset and told me to leave his room. Therefore, rectal exam not completed. I updated his nurse and attending hospitalist. I reviewed his imaging and labs here in the hospital. He remains HD stable. - He may have had anal/outlet bleeding in the setting of constipation and straining with BMs. - If primary team is able to complete an exam including rectal exam would be helpful in ascertaining whether he has obvious rectal/anal source - For now, would monitor and document GI outpt - Trend H&H, transfuse PRN - Would initiate a bowel regimen such as Colace 200 mg daily along with Miralax 17 gm in 8 oz liquid once daily to help avoid constipation/straining - Would defer endoscopic work-up for now as his HGB is stable, has no ongoing/active bleeding at present and has co-morbidities including COVID, DILIP, and heart failure which would put him at increased risk for endoscopy at this time. Once pt is discharged and he recovers from his acute issues, can consider colonoscopy for further evaluation if pt is interested in doing so to evaluate for sources such as malignancy, IBD, AVM, etc. - If pt were to develop active GIB or significant drop in HGB while hospitalized, please notify us to reconsider endoscopy at that time Thank you for allowing us to participate in the care of this patient. Please call with any acute changes, questions or concerns. Please see addendum below with additional recommendation from my supervising physician. Supervising Physician Co-Signing Physician Notes 87 y/o male w PMH including CAD s/p CABG, CHF, CKD, chronic anemia (baseline HGB around 9), admitted w/ weakness and COVID-19 infection and DILIP. GI was consulted given some blood streaked stools patient had. Patient reports he rece ntly had surgery on internal hemorrhoids done 1-2 months ago in [place] by a Dr. Ortiz. States he struggles with constipation and will intermittently get hemorrhoidal related bleeding or streaks of blood in his stool. He is not sure what type of procedure they did on his hemorrhoids but reports he had "something done." He is a limited historian. His hgb has remained stable here with no further bleeding. Physical exam: patient is alert and oriented, diminished breath sounds, RRR, no murmurs, abdomen soft, non-tender, non-distended. No plans for colonoscopy at this time as bleeding has resolved and patient's hgb is at baseline. He reports "many" recent colonoscopies and hemorrhoidal surgery so bleeding potentially related to this vs. an anal fissure given significant constipation and straining. He also states he would not want another colonoscopy even if recommended. He can follow back up as outpatient with his colorectal surgeon/general surgeon who did the procedure as no inpatient endoscopy is warranted at this time. Continue to trend H/H and please let us know if bleeding recurs. Would recommend a bowel regimen for his constipation of miralax 17 g BID. GI will sign off but please call back with questions. Inna Grijalva, Gastroenterology and Hepatology History of Present Illness Reason for Consultation: blood streaked stools Requesting Physician: Dr. Salgado Attending Physician: Michaela Salgado MD History of Present Illness This is a 87 y/o male with PMhxCAD s/p CABG 1995, chronic diastolic and systolic heart failure, HTN, HLD, PAD, carotid artery disease s/p CEA, anemia of chronic disease and CKD stage IIIb, admitted after presenting with generalized weakness, found to be COVID + and DILIP, imaging w/ pleural effusions. We are consulted as he had blood tinged stool yesterday and today. Most of the history gathered from pt's hospital team (nurse and attending) as pt is very hard of hearing, not a good historian. Pt had been complaining of constipation, and straining with BMs, and yesterday he had a very large brown loose stool with blood streaks noted by nursing. Today he some blood smearing in his stool as well. It's unclear whether he follows a bowel regimen. For me, he offers no complaints to me other than he is cold. Pt given 2 warm blankets. He denies having abd pain, CP, SOB. There's been no reports of vomiting, hematemesis, or melena. He is unable to tell me whether he has had a colonoscopy before, and there are no records of such in his [facility] chart. However he says he has had hemorrhoids removed in the past, though didn't say when this was. He then told me to leave his room and said "Get the hell out of here." Labs reviewed- he has stable chronic anemia w/ HGB 11, Cri 33.5, renal fxn with slight improvement, BUN 102, cr 2.4, has hyponatremia w/ Na 131, ALP 125 but otherwise normal LFTs, INR 1.1. Allergies Allergy/AdvReac Type Severity Reaction Status Date / Time doxazosin [From Cardura] Allergy Intermediate HIVES and Verified 06/26/22 09:45 ITCHING furosemide [From Lasix] Allergy Intermediate HIVES and Verified 06/26/22 09:45 ITCHING hydrochlorothiazide Allergy Intermediate ITCHING Verified 06/26/22 09:45 potassium chloride Allergy Intermediate HIVES and Verified 06/26/22 09:45 ITCHING clonidine Allergy Unknown Unknown Verified 06/26/22 09:45 ketorolac [From Toradol] AdvReac Severe ACUTE Verified 06/26/22 09:45 KIDNEY INJURY lisinopril AdvReac Intermediate COUGH Verified 06/26/22 09:45 Home Medications Medication Instructions Recorded Confirmed Type ascorbic acid (vitamin C) 1,000 mg 1 g PO DAILY #120 tabs 11/24/20 07/01/22 Rx tablet carvedilol 12.5 mg tablet 12.5 mg PO BID #60 tabs 11/24/20 07/01/22 Rx dutasteride 0.5 mg capsule 0.5 mg PO DAILY #30 caps 11/24/20 07/01/22 Rx ezetimibe 10 mg tablet 10 mg PO DAILY #30 tabs 11/24/20 07/01/22 Rx magnesium oxide 400 mg PO DAILY #30 caps 11/24/20 07/01/22 Rx nitroglycerin 0.4 mg sublingual 0.4 mg sublingual Q5M PRN chest 11/24/20 07/01/22 Rx tablet (Nitrostat) pain #1 tab rivaroxaban 2.5 mg tablet (Xarelto) 2.5 mg PO BID #60 tabs 11/24/20 07/01/22 Rx rosuvastatin 5 mg tablet 5 mg PO DAILY #30 tabs 11/24/20 07/01/22 Rx tamsulosin 0.4 mg capsule 0.8 mg PO DAILY #30 caps 11/24/20 07/01/22 Rx triamcinolone acetonide 0.1 % 1 applic topical TID PRN itching 11/24/20 07/01/22 Rx topical cream #15 grams vitamin B12 500 mcg-folic acid 400 1 tab PO DAILY #30 tabs 11/24/20 07/01/22 Rx mcg tablet docusate sodium 100 mg capsule 100 mg PO BID 12/06/20 07/01/22 History (Colace) zinc 50 mg tablet 50 mg PO DAILY 12/06/20 07/01/22 History folic acid 400 mcg tablet 400 mcg PO QAM #30 tabs 08/31/21 07/01/22 Rx menthol 0.44 %-zinc oxide 20.6 % 1 applic topical TID PRN skin 09/05/21 07/01/22 Rx topical ointment (Calmoseptine) irritation #113 grams cholecalciferol (vitamin D3) 50 50 mcg PO DAILY 09/25/21 07/01/22 History mcg (2,000 unit) tablet (Vitamin D3) potassium chloride 20 mEq 40 meq PO DAILY 09/25/21 07/01/22 History tablet,extended release(part/cryst) darbepoetin lizzy in polysorbat 60 60 mcg subcut .COMPLEX #1 mL 10/03/21 07/01/22 Rx mcg/mL in polysorbate injection (Aranesp) hydralazine 25 mg tablet 25 mg PO BID #90 tabs 10/17/21 07/01/22 Rx omega-3 fatty acids 1,000 mg 2,000 mg PO BID 11/28/21 07/01/22 History capsule Saccharomyces boulardii 250 mg 250 mg PO DAILY #10 caps 12/08/21 07/01/22 Rx capsule (Florastor) spironolactone 25 mg tablet 12.5 mg PO DAILY #30 tabs 12/08/21 07/01/22 Rx clopidogrel 75 mg tablet 75 mg PO DAILY #30 tabs 04/03/22 07/01/22 Rx ferric citrate 210 mg iron tablet 210 mg PO BID #180 tabs 04/03/22 07/01/22 Rx (Auryxia) bumetanide 2 mg tablet 1 mg PO TID 06/26/22 07/01/22 History Patient History Medical History Carotid stenosis Diastolic CHF, chronic DVT prophylaxis Hearing loss Hematuria HTN (hypertension) Hyperlipidemia Nephrolithiasis Osteoarthritis PAD (peripheral artery disease) Surgical History H/O endarterectomy H/O lithotripsy Hx of CABG S/P colonoscopic polypectomy S/P total knee arthroplasty left Family History Denies family history of Diabetes Kidney disease Social History Smoking Status: Never smoker Hx Alcohol Use: No Hx Substance Use: No Preferred Language: [place] Communication Ability: Effective Hearing Ability: Hard of Hearing [employer] Required: No Beliefs That Will Affect Care: None Current Living Situation: Alone current occupational status: retired Other Information That Helps Us Care for You: No Feels Safe at Home: Yes Safety Concerns: Feels Safe At This Time Assistive Devices: Cane, Oxygen - at Night and Walker Review of Systems Review of Systems: Limited as pt asked me to leave the room before I was finished interviewing/examining him Physical Exam Physical Exam: Chronically ill, in NAD. Resting in bed Eyes: PERRL, conjunctivae normal, anicteric sclerae Respiratory: Normal respiratory effort Gastrointestinal (Abdomen): No obvious distention Skin: no rashes, warm and dry Neurologic: Moves all extremities appropriately; no obvious focal neuro deficits Psychiatric: Awake and alert. Results & Data ([facility]) Vital Signs (Past 12 Hours) Vital Signs Temp Pulse Pulse Resp BP Pulse Ox O2 Del Method 07/04/22 07:38 36.6 C 64 18 115/60 97 Room Air 07/04/22 07:12 62 07/04/22 02:40 36.6 C 66 20 106/58 L 92 Room Air 07/03/22 22:13 36.9 C 69 18 119/62 93 Room Air 07/03/22 22:00 71 Laboratory Results 07/04/22 07/04/22 Range/Units 08:42 08:42 WBC 8.70 (4.8-10.8) K/ul RBC 4.08 L (4.70-6.10) M/uL Hgb 11.0 L (14.0-18.0) g/dl Hct 33.5 L (42.0-52.0) % MCV 82.1 (80.0-100.0) fL MCH 27.0 (25.0-34.0) pg MCHC 32.8 (32.0-36.0) g/dL RDW Std Deviation 56.0 H (36.4-46.3) fL RDW Coeff of Dmitriy 19.0 H (11.5-14.5) % Plt Count 251 (130-400) K/uL MPV 10.3 (9.4-12.4) fL Sodium 131 L (136-145) mmol/L Potassium 4.4 (3.5-5.1) mmol/L Chloride 90 L (98-107) mmol/L Carbon Dioxide 35 H (21-32) mmol/L Anion Gap 6 (3-11) BUN 102 H (6-23) mg/dl Creatinine 2.40 H (0.6-1.4) mg/dl Est Cr Clr Drug Dosing 19.9 ml/min Est GFR ( Amer) 27.3 ml/min Est GFR (Non-Af Amer) 23.5 ml/min BUN/Creatinine Ratio 42.5 H (10-20) Glucose 131 H (70-99(Fasting)) mg/dl Calcium 10.1 (8.5-10.1) mg/dl Diagnostic Findings Chest CT: FINDINGS: Remarkable thyroid. Cardiomegaly with prior median sternotomy. Extensive tribal coronary artery calcifications. Prior CABG. Atherosclerosis of the aorta without aneurysm. Degree of stenosis is suggested within the subclavian and innominate arteries. Small left with moderate right pleural effusions. Intralobular septal thickening with intermixed groundglass densities. Mild dependent bibasilar consolidation, most pronounced in the right lower lobe. There are a few ill-defined nodular consolidative foci measuring up to 5 mm the left lower lobe on image 127. Mild mediastinal and hilar lymphadenopathy with a few calcified lymph nodes. Gynecomastia. Unremarkable soft tissues. Healed chronic anterior rib fractures. No acute process of the right upper abdomen. IMPRESSION: 1. Cardiomegaly with pulmonary edema. 2. Small left and moderate right pleural effusions and right greater than left dependent bibasilar consolidation favoring atelectasis. Pneumonia considered less likely. 3. There are a few scattered nodular consolidative subcentimeter foci within the lungs, likely infectious or inflammatory. 4. Mild lymphadenopathy. Head CT: No acute intracranial hemorrhage, midline shift, intracranial mass, hydrocephalus, territorial ischemia or abnormal extra-axial collection. Involutional changes with white matter hypodensities suggestive of chronic microvascular ischemic disease. Encephalomalacia of the right parietal, occipital and posterior right temporal lobes. There are a few punctate associated parenchymal calcifications noted within this distribution. Cerebral vascular calcifications. Motion degraded exam. The calvarium is intact. Rightward bowing and spurring of the nasal septum. Mild polypoid mucosal thickening of the left maxillary sinus. Mastoid air cells are clear. Prior bilateral lens repair. IMPRESSION: 1. No acute intracranial abnormality. 2. Chronic right cerebral infarct. CXR: Cardiac silhouette is enlarged. Coronary artery calcifications. Prior median sternotomy. No pneumothorax. Right greater than left layering pleural effusions with bibasilar consolidation similar to prior. Pulmonary vascular congestion with interstitial coarsening. Degenerative changes of the shoulders and spine. IMPRESSION: 1. Cardiomegaly with pulmonary edema. 2. Layering pleural effusions with bibasilar consolidation favoring atelectasis.
[2022-07-04 09:13] LABS: Hematocrit (blood only) 33.5 % (42.0-52.0); Mean Corpuscular Hgb Conc 32.8 g/dL (32.0-36.0); Mean Corpuscular Volume 82.1 fL (80.0-100.0); Mean Platelet Volume 10.3 fL (9.4-12.4); Platelet Count 251 K/uL (130-400); Red Blood Count 4.08 M/uL (4.70-6.10)
[2022-07-04 09:34] LABS: BUN Creatinine Ratio 42.5 (10-20); Calcium 10.1 mg/dl (8.5-10.1); Creatinine Clr Calc Pharmacy 19.9 ml/min; Est GFR (African American) 27.3 ml/min; Est GFR (Non-African American) 23.5 ml/min; Potassium 4.4 mmol/L (3.5-5.1)
--- NOTE | 2022-07-04 10:12 | Nephrology Progress Note ---
Date of Service July 04, 2022 Assessment & Plan (1) DILIP (acute kidney injury): (2) Hypokalemia: (3) Chronic combined systolic and diastolic CHF (congestive heart failure): (4) Generalized muscle weakness: (5) Lab test positive for detection of COVID-19 virus: Plan 87 y o m with stage 3b/4 CKD, b/l cr has been quite variable over the years from creatinine II 0.0-2.5. No proteinuria hematuria. Renal imaging was otherwise unremarkable with nonobstructing nephrolithiasis. Has chronic congestive heart failure with systolic and diastolic dysfunction, recently diuretics was increased to Bumex 1 mg t.i.d. 2 weeks ago. Admitted with generalized weakness and noted to be positive for COVID. Noted to have DILIP with creatinine 2.6 and BUN 115 with hypokalemia, suggestive of some component of volume depletion although chest x-ray showed bilateral pleural effusion pulmonary congestion. Troponin noted to be high but asymptomatic. Slow improvement in renal function, Blood pressure acceptable, no respiratory distress, on room air. Decent urine output, net negative off of diuretics. Clinically seems euvolemic. Hb stable. --would continue to keep off of diuretics, monitor renal function and electrolytes, accurate intake and output. Admission and Anticipated Discharge Date Admission Date: July 01, 2022 Bryn Machado was seen and evaluated this morning. He was lying in bed, comfortable, denies any shortness of breath or chest pain. Blood pressure has been well controlled. Renal function improving slowly, volume status acceptable. Review of Systems Review of Systems: Detail ROS was otherwise unremarkable. Physical Exam Constitutional: WD/WN, vitals as above + ill appearing; no acute distress Eyes: + anicteric sclerae Respiratory: no respiratory distress Auscultation: + diminished lung sounds; no crackles and no wheezes Cardiovascular: Rate/Rhythm: regular rate and regular rhythm Heart Sounds: + murmur Extremities: no edema Skin: no rashes Neurologic: no focal motor deficits Psychiatric: Orientation: alert and oriented x 3 Affect: euthymic affect Results & Data ([facility]) Vital Signs (Past 12 Hours) Vital Signs Temp Pulse Pulse Resp BP Pulse Ox O2 Del Method 07/04/22 07:38 36.6 C 64 18 115/60 97 Room Air 07/04/22 07:12 62 07/04/22 02:40 36.6 C 66 20 106/58 L 92 Room Air 07/03/22 22:13 36.9 C 69 18 119/62 93 Room Air PG Care Time/CCT Total # of Minutes Spent Total Time Spent with Patient: Total time spent is greater than 50% in coordination of care (as documented) at patient's floor/unit and/or counseling patient: Coding Level of Care Code 68343 SUB INP/OBS CARE 2/35MIN Diagnoses DILIP (acute kidney injury) N17.9 Hypokalemia E87.6 Chronic combined systolic and diastolic CHF (congestive heart failure) I50.42 Generalized muscle weakness M62.81 Lab test positive for detection of COVID-19 virus U07.1
--- NOTE | 2022-07-04 23:57 | Hospitalist Progress Note ---
Date of Service July 04, 2022 Assessment & Plan (1) Generalized muscle weakness: (2) Elevated troponin I level: (3) Lab test positive for detection of COVID-19 virus: (4) Hypokalemia: (5) Chronic kidney disease: (6) Chronic combined systolic and diastolic CHF (congestive heart failure): Plan This is an 87-year-old male who has significant past medical history of CAD status post CABG in 1995, chronic diastolic and systolic heart failure, HTN, HLD, PAD, carotid artery disease status post endarterectomy, anemia of chronic disease and CKD stage IIIb who presents to ED secondary to weakness x2 days. SARS-CoV-2 -CXR shows bilateral pleural effusion but this is chronic -No evidence of hypoxia. Patient with no respiratory symptoms -supportive care for now -Clinically stable Elevated troponin CAD with history of CABG Chronic systolic and diastolic CHF -No chest pain, no SOB -troponin elevation on admission to be expected with his CKD and appears chronically elevated -continue Coreg, plavix, spironolactone, rosuvastatin Generalized weakness -PT eval yesterday, will need ongoing assessment to determine dispo plan. DILIP on CKD stage 3b -holding bumex for now -It seems that is his baseline creatinine since creatinine back in 03/20 was 3 -Management per Nephrology. Anemia of chronic disease receives aranesp iron supplement Patient with constipation then with blood streaked stools. Blood streaked stools here is likely due to hemorrhoid from straining. He is unclear about his colonoscopy history. He is on plavix and xarelto. FOBT negative GI on board DVT ppx: Xarelto, plavix FULL CODE Disposition Will discharge once medically stable Admission and Anticipated Discharge Date Admission Date: July 01, 2022 Subjective Patient was seen and evaluated for follow-up Lying in bed with no acute distress. Patient said that he feels weak He said he did not have a bowel movement yet to check if he continues to have dark stool He is saturating well on room air Denies any chest pain, palpitation, dizziness, shortness of breath Review of Systems Review of Systems: All systems reviewed & are unremarkable except as noted in Subjective Physical Exam Physical Exam: General- No acute distress Head- atraumatic Eyes- PERRL, EOMI, ENT- oropharynx clear Neck- supple, no JVD Lungs- clear to auscultation Heart- regular rhythm; no murmur Abdomen- normal bowel sounds, soft, nontender Extremities- no calf tenderness Neuro- alert, oriented x 3; PERRL, EOMI; no facial palsy; no dysarthria Skin- warm & dry Results & Data Results & Data ([facility]) Vital Signs (Past 12 Hours) Vital Signs Temp Pulse Pulse Resp BP Pulse Ox O2 Del Method 07/04/22 23:19 66 07/04/22 22:00 37.2 C 68 20 104/54 L 96 Room Air 07/04/22 19:00 37.3 C 67 18 109/50 L 91 Room Air 07/04/22 17:44 36.8 C 63 18 116/56 L 93 Room Air 07/04/22 15:23 64 07/04/22 12:09 36.6 C 62 18 110/57 L 94 Room Air (5) Chronic kidney disease Chronic kidney disease stage: unspecified stage Qualified Code(s): N18.9 - Chronic kidney disease, unspecified
[2022-07-05] MEDS ORDERED: LORATADINE 10 MG TAB PO ONE (06:45)
[2022-07-05 07:38] LABS: Hematocrit (blood only) 31.7 % (42.0-52.0); Hemoglobin 10.5 g/dl (14.0-18.0); Mean Corpuscular Hemoglobin 26.8 pg (25.0-34.0); Mean Corpuscular Hgb Conc 33.1 g/dL (32.0-36.0); Mean Corpuscular Volume 80.9 fL (80.0-100.0); Mean Platelet Volume 10.6 fL (9.4-12.4); Platelet Count 249 K/uL (130-400); RDW Coefficient of Variation 19.1 % (11.5-14.5); RDW Standard Deviation 55.5 fL (36.4-46.3); Red Blood Count 3.92 M/uL (4.70-6.10); White Blood Count 8.03 K/ul (4.8-10.8)
[2022-07-05 07:54] LABS: Albumin Level 3.4 gm/dl (3.4-5.0); BUN Creatinine Ratio 41.9 (10-20); Calcium 9.3 mg/dl (8.5-10.1); Creatinine Clr Calc Pharmacy 19.9 ml/min; Est GFR (African American) 27.2 ml/min; Est GFR (Non-African American) 23.4 ml/min; Phosphorus 3.8 mg/dl (2.5-4.9); Potassium 4.1 mmol/L (3.5-5.1)
[2022-07-05] MEDS: carvediloL 12.5 MG TAB PO SCH ×2 (09:10→20:53)
[2022-07-05] MEDS: hydrALAZINE HCL 25 MG TAB PO SCH ×2 (09:10→20:53)
[2022-07-05] MEDS: RIVAROXABAN 2.5 MG TAB PO SCH ×2 (09:10→20:49)
[2022-07-05] MEDS: AMMONIUM LACTATE 12% LOTION 225 GM BTL EXT SCH ×2 (09:10→20:48)
[2022-07-05] MEDS: CYANOCOBALAMIN (B-12) 500 MCG TABLET PO SCH (09:11)
[2022-07-05] MEDS: CLOPIDOGREL BISULFATE 75 MG TAB PO SCH (09:11)
[2022-07-05] MEDS: OMEGA-3 (PURIFIED FISH OIL) 1 GM CAP PO SCH ×2 (09:11→20:49)
[2022-07-05] MEDS: ASCORBIC ACID 500 MG TAB PO SCH (09:11)
[2022-07-05] MEDS: CHOLECALCIFEROL 1,000 UNITS 25 MCG TAB PO SCH (09:11)
[2022-07-05] MEDS: FOLIC ACID 400 MCG TAB PO SCH (09:11)
[2022-07-05] MEDS: EZETIMIBE 10 MG TABLET PO SCH (09:11)
[2022-07-05] MEDS: TAMSULOSIN HCL 0.4 MG CAP PO SCH (09:12)
[2022-07-05] MEDS: SACCHAROMYCES BOULARDII 250 MG CAP PO SCH (09:12)
[2022-07-05] MEDS: ROSUVASTATIN CALCIUM 5 MG TAB PO SCH (09:12)
[2022-07-05] MEDS: SPIRONOLACTONE 12.5 MG TAB PO SCH (09:12)
[2022-07-05] MEDS: FINASTERIDE 5 MG TAB PO SCH (09:13)
[2022-07-05] MEDS: FERROUS SULFATE 325 MG TAB PO SCH ×2 (09:13→16:31)
--- NOTE | 2022-07-05 10:18 | Nephrology Progress Note ---
Date of Service July 05, 2022 Assessment & Plan (1) DILIP (acute kidney injury): (2) Hypokalemia: (3) Chronic combined systolic and diastolic CHF (congestive heart failure): (4) Generalized muscle weakness: (5) Lab test positive for detection of COVID-19 virus: Plan 87 y o m with stage 3b/4 CKD, b/l cr has been quite variable over the years from creatinine II 0.0-2.5. No proteinuria hematuria. Renal imaging was otherwise unremarkable with nonobstructing nephrolithiasis. Has chronic congestive heart failure with systolic and diastolic dysfunction, recently diuretics was increased to Bumex 1 mg t.i.d. 2 weeks ago. Admitted with generalized weakness and noted to be positive for COVID. Noted to have DILIP with creatinine 2.6 and BUN 115 with hypokalemia, suggestive of some component of volume depletion although chest x-ray showed bilateral pleural effusion pulmonary congestion. Troponin noted to be high but asymptomatic. Slow improvement in renal function, Blood pressure acceptable, no respiratory distress, on room air. Decent urine output, net negative off of diuretics and clinically seems euvolemic but he is more than 10 lb positive since admission. Hb stable. --would resume Bumex 1 mg daily, monitor renal function and electrolytes, accurate intake and output. Will follow. Admission and Anticipated Discharge Date Admission Date: July 01, 2022 Bryn Machado was seen and evaluated this morning. He was lying in bed, comfortable, denies any shortness of breath or chest pain. Blood pressure has been well controlled. Renal function improving slowly, volume status acceptable, although he is net positive almost 10 lb since admission off of diuretics. Review of Systems Review of Systems: Detail ROS was otherwise unremarkable. Physical Exam Constitutional: WD/WN, vitals as above + ill appearing; no acute distress Eyes: + anicteric sclerae Respiratory: no respiratory distress Auscultation: + diminished lung sounds; no crackles and no wheezes Cardiovascular: Rate/Rhythm: regular rate and regular rhythm Heart Sounds: + murmur Extremities: no edema Skin: no rashes Neurologic: no focal motor deficits Psychiatric: Orientation: alert and oriented x 3 Affect: euthymic affect Results & Data ([facility]) Vital Signs (Past 12 Hours) Vital Signs Temp Pulse Pulse Resp BP Pulse Ox O2 Del Method 07/05/22 07:55 36.4 C L 63 18 117/62 95 Room Air 07/05/22 07:18 70 07/05/22 04:00 36.9 C 67 20 96/56 L 93 Room Air 07/04/22 23:19 66 PG Care Time/CCT Total # of Minutes Spent Total Time Spent with Patient: Total time spent is greater than 50% in coordination of care (as documented) at patient's floor/unit and/or counseling patient: Coding Level of Care Code 59596 SUB INP/OBS CARE 3/50MIN Diagnoses DILIP (acute kidney injury) N17.9 Hypokalemia E87.6 Chronic combined systolic and diastolic CHF (congestive heart failure) I50.42 Generalized muscle weakness M62.81 Lab test positive for detection of COVID-19 virus U07.1
[2022-07-05] MEDS ORDERED: EPOETIN ALFA 40,000 UNITS/ML VIAL SQ STA (11:35)
[2022-07-05] MEDS ORDERED: BUMETANIDE 1 MG TAB PO SCH (11:45)
--- NOTE | 2022-07-05 15:36 | Hospitalist Progress Note ---
Date of Service July 05, 2022 Assessment & Plan (1) Generalized muscle weakness: (2) Elevated troponin I level: (3) Lab test positive for detection of COVID-19 virus: (4) Hypokalemia: (5) Chronic kidney disease: (6) Chronic combined systolic and diastolic CHF (congestive heart failure): Plan This is an 87-year-old male who has significant past medical history of CAD status post CABG in 1995, chronic diastolic and systolic heart failure, HTN, HLD, PAD, carotid artery disease status post endarterectomy, anemia of chronic disease and CKD stage IIIb who presents to ED secondary to weakness x2 days. SARS-CoV-2 -CXR shows bilateral pleural effusion but this is chronic -No evidence of hypoxia. Patient with no respiratory symptoms -supportive care for now -Clinically stable Elevated troponin CAD with history of CABG Chronic systolic and diastolic CHF -No chest pain, no SOB -troponin elevation on admission to be expected with his CKD and appears chronically elevated -continue Coreg, plavix, spironolactone, rosuvastatin Generalized weakness -PT eval yesterday, will need ongoing assessment to determine dispo plan. DILIP on CKD stage 3b -holding bumex for now -It seems that is his baseline creatinine since creatinine back in 03/20 was 3 -Creatinine 2.4 today -Nephrology on board -Bumex 1 mg given today -discussed with nephrology about possible discharge tomorrow if lab improves Anemia of chronic disease receives aranesp Hgb stable iron supplement Patient with constipation then with blood streaked stools. FOBT negative GI on board DVT ppx: Xarelto, plavix FULL CODE Disposition Will discharge once medically stable Admission and Anticipated Discharge Date Admission Date: July 01, 2022 Subjective Patient was seen and evaluated for follow-up Sitting in chair with no acute distress. Patient said that he feels weak He is very anxious to go home today He is saturating well on room air Denies any chest pain, palpitation, dizziness, shortness of breath Review of Systems Review of Systems: All systems reviewed & are unremarkable except as noted in Subjective Physical Exam Physical Exam: General- No acute distress Head- atraumatic Eyes- PERRL, EOMI, ENT- oropharynx clear, decrease hearing function Neck- supple, no JVD Lungs- clear to auscultation Heart- regular rhythm; no murmur Abdomen- normal bowel sounds, soft, nontender Extremities- no calf tenderness Neuro- alert, oriented x 3; PERRL, EOMI; no facial palsy; no dysarthria Skin- warm & dry Results & Data Results & Data ([facility]) Vital Signs (Past 12 Hours) Vital Signs Temp Pulse Pulse Resp BP Pulse Ox O2 Del Method 07/05/22 11:26 36.5 C 59 L 18 113/50 L 97 Room Air 07/05/22 10:57 Room Air 07/05/22 07:55 36.4 C L 63 18 117/62 95 Room Air 07/05/22 07:18 70 07/05/22 04:00 36.9 C 67 20 96/56 L 93 Room Air (5) Chronic kidney disease Chronic kidney disease stage: unspecified stage Qualified Code(s): N18.9 - Chronic kidney disease, unspecified
[2022-07-05] MEDS: ACETAMINOPHEN 325 MG TAB PO PRN ×2 (16:30→20:46)
[2022-07-06] MEDS: carvediloL 12.5 MG TAB PO SCH ×2 (07:14→22:36)
[2022-07-06 07:36] LABS: Albumin Level 3.6 gm/dl (3.4-5.0); BUN Creatinine Ratio 37.1 (10-20); Calcium 9.5 mg/dl (8.5-10.1); Creatinine Clr Calc Pharmacy 16.9 ml/min; Est GFR (African American) 22.4 ml/min; Est GFR (Non-African American) 19.3 ml/min; Phosphorus 3.9 mg/dl (2.5-4.9); Potassium 3.6 mmol/L (3.5-5.1)
[2022-07-06] MEDS: SPIRONOLACTONE 12.5 MG TAB PO SCH (08:42)
[2022-07-06] MEDS: RIVAROXABAN 2.5 MG TAB PO SCH ×2 (08:43→22:39)
[2022-07-06] MEDS: OMEGA-3 (PURIFIED FISH OIL) 1 GM CAP PO SCH ×2 (08:43→22:38)
[2022-07-06] MEDS: FINASTERIDE 5 MG TAB PO SCH (08:43)
[2022-07-06] MEDS: TAMSULOSIN HCL 0.4 MG CAP PO SCH (08:43)
[2022-07-06] MEDS: CYANOCOBALAMIN (B-12) 500 MCG TABLET PO SCH (08:43)
[2022-07-06] MEDS: hydrALAZINE HCL 25 MG TAB PO SCH ×2 (08:43→22:39)
[2022-07-06] MEDS: FOLIC ACID 400 MCG TAB PO SCH (08:44)
[2022-07-06] MEDS: EZETIMIBE 10 MG TABLET PO SCH (08:44)
[2022-07-06] MEDS: SACCHAROMYCES BOULARDII 250 MG CAP PO SCH (08:44)
[2022-07-06] MEDS: FERROUS SULFATE 325 MG TAB PO SCH ×2 (08:44→16:08)
[2022-07-06] MEDS: CLOPIDOGREL BISULFATE 75 MG TAB PO SCH (08:44)
[2022-07-06] MEDS: ROSUVASTATIN CALCIUM 5 MG TAB PO SCH (08:44)
[2022-07-06] MEDS: ASCORBIC ACID 500 MG TAB PO SCH (08:44)
[2022-07-06] MEDS: CHOLECALCIFEROL 1,000 UNITS 25 MCG TAB PO SCH (08:45)
[2022-07-06] MEDS: AMMONIUM LACTATE 12% LOTION 225 GM BTL EXT SCH ×2 (08:45→22:35)
--- NOTE | 2022-07-06 09:27 | Nephrology Progress Note ---
Date of Service July 06, 2022 Assessment & Plan (1) DILIP (acute kidney injury): (2) Hypokalemia: (3) Chronic combined systolic and diastolic CHF (congestive heart failure): (4) Generalized muscle weakness: (5) Lab test positive for detection of COVID-19 virus: Plan 87 y o m with stage 3b/4 CKD, b/l cr has been quite variable over the years from creatinine II 0.0-2.5. No proteinuria hematuria. Renal imaging was otherwise unremarkable with nonobstructing nephrolithiasis. Has chronic congestive heart failure with systolic and diastolic dysfunction, recently diuretics was increased to Bumex 1 mg t.i.d. 2 weeks ago. Admitted with generalized weakness and noted to be positive for COVID. Noted to have DILIP with creatinine 2.6 and BUN 115 with hypokalemia, suggestive of some component of volume depletion although chest x-ray showed bilateral pleural effusion pulmonary congestion. Troponin noted to be high but asymptomatic. Renal function worsened after restarted on Bumex 1 mg yesterday, Blood pressure acceptable, no respiratory distress, on room air. Decent urine output, net negative and clinically seems euvolemic but he is more than 10 lb positive since admission. Hb stable. --hold Bumex, monitor renal function and electrolytes, accurate intake and output. Will follow Admission and Anticipated Discharge Date Admission Date: July 01, 2022 Bryn Machado was seen and evaluated this morning. He was lying in bed, comfortable, denies any shortness of breath or chest pain. Blood pressure has been well controlled. Renal function improving slowly, volume status acceptable, although he is net positive almost 10 lb since admission. Started on Bumex 1 mg yesterday and this morning lab showed significant worsening of renal function. Review of Systems Review of Systems: Detail ROS was otherwise unremarkable. Physical Exam Constitutional: WD/WN, vitals as above + ill appearing; no acute distress Eyes: + anicteric sclerae Respiratory: no respiratory distress Auscultation: + diminished lung sounds; no crackles and no wheezes Cardiovascular: Rate/Rhythm: regular rate and regular rhythm Heart Sounds: + murmur Extremities: no edema Skin: no rashes Neurologic: no focal motor deficits Psychiatric: Orientation: alert and oriented x 3 Affect: euthymic affect Results & Data ([facility]) Vital Signs (Past 12 Hours) Vital Signs Temp Pulse Pulse Resp BP Pulse Ox O2 Del Method 03/10/23 07:17 36.5 C 58 L 18 116/63 99 Room Air 07/06/22 07:10 50 L 07/06/22 02:46 36.6 C 61 18 119/66 98 Room Air 07/06/22 00:52 58 L 99/55 L 07/06/22 00:43 57 L 07/05/22 22:43 37.1 C 48 L 18 95/55 L 98 Room Air PG Care Time/CCT Total # of Minutes Spent Total Time Spent with Patient: Total time spent is greater than 50% in coordination of care (as documented) at patient's floor/unit and/or counseling patient: Coding Level of Care Code 92336 SUB INP/OBS CARE 2/35MIN Diagnoses DILIP (acute kidney injury) N17.9 Hypokalemia E87.6 Chronic combined systolic and diastolic CHF (congestive heart failure) I50.42 Generalized muscle weakness M62.81 Lab test positive for detection of COVID-19 virus U07.1
--- NOTE | 2022-07-06 13:48 | Hospitalist Progress Note ---
Date of Service July 06, 2022 Assessment & Plan (1) Generalized muscle weakness: (2) Elevated troponin I level: (3) Lab test positive for detection of COVID-19 virus: (4) Hypokalemia: (5) Chronic kidney disease: (6) Chronic combined systolic and diastolic CHF (congestive heart failure): Plan This is an 87-year-old male who has significant past medical history of CAD status post CABG in 1995, chronic diastolic and systolic heart failure, HTN, HLD, PAD, carotid artery disease status post endarterectomy, anemia of chronic disease and CKD stage IIIb who presents to ED secondary to weakness x2 days. SARS-CoV-2 -CXR shows bilateral pleural effusion but this is chronic -No evidence of hypoxia. Patient with no respiratory symptoms -Clinically stable Elevated troponin CAD with history of CABG Chronic systolic and diastolic CHF -No chest pain, no SOB -troponin elevation on admission to be expected with his CKD and appears chronically elevated -continue Coreg, plavix, spironolactone, rosuvastatin Generalized weakness - Continue PT/OT eval - Fall precaution DILIP on CKD stage 3b -holding bumex for now -It seems that is his baseline creatinine since creatinine back in 03/20 was 3 -Creatinine worsening at 2.8 today.Bumex 1mg given yesterday -Nephrology on board recommended to hold bumex for now due to increase on creatinine Anemia of chronic disease receives aranesp Hgb stable iron supplement Patient with constipation then with blood streaked stools. FOBT negative GI on board DVT ppx: Xarelto, plavix FULL CODE Disposition Will discharge once medically stable Admission and Anticipated Discharge Date Admission Date: July 01, 2022 Subjective Pt was seen and examined for follow up Sitting in chair with no acute distress. He is very anxious to go home today He is not too happy since he is not going home today Spoke to Vernon today and provided with update and answered all his questions. Denies any chest pain, palpitation, dizziness, shortness of breath Review of Systems Review of Systems: All systems reviewed & are unremarkable except as noted in Subjective Physical Exam Physical Exam: General- No acute distress Head- atraumatic Eyes- PERRL, EOMI, ENT- oropharynx clear, decrease hearing function Neck- supple, no JVD Lungs- clear to auscultation Heart- regular rhythm; no murmur Abdomen- normal bowel sounds, soft, nontender Extremities- no calf tenderness Neuro- alert, oriented x 3; PERRL, EOMI; no facial palsy; no dysarthria Skin- warm & dry Results & Data Results & Data ([facility]) Vital Signs (Past 12 Hours) Vital Signs Temp Pulse Pulse Resp BP Pulse Ox O2 Del Method 07/06/22 12:09 36.3 C L 72 18 140/73 94 Room Air 07/06/22 07:17 36.5 C 58 L 18 116/63 99 Room Air 07/06/22 07:10 50 L 07/06/22 02:46 36.6 C 61 18 119/66 98 Room Air (5) Chronic kidney disease Chronic kidney disease stage: unspecified stage Qualified Code(s): N18.9 - Chronic kidney disease, unspecified
[2022-07-06] MEDS: ACETAMINOPHEN 325 MG TAB PO PRN ×2 (16:07→22:39)
[2022-07-07] MEDS ORDERED: HYDROmorphone INJ 0.5 MG/0.5 ML SYR IV PRN (01:46)
[2022-07-07] MEDS: oxyCODONE HCL IR 5 MG TAB (IMMEDIATE RELEASE) PO PRN ×4 (02:19→23:44)
--- NOTE | 2022-07-07 05:09 | Communication Note ---
Date of Service: July 07, 2022 Patient complaining of new right hip pain as per RN. CT right hip Hold antiplatelet Rx/NOAC until CT results known
[2022-07-07 06:52] LABS: Albumin Level 3.4 gm/dl (3.4-5.0); BUN Creatinine Ratio 36.8 (10-20); Est GFR (African American) 24.1 ml/min; Est GFR (Non-African American) 20.8 ml/min; Phosphorus 3.5 mg/dl (2.5-4.9); Potassium 3.5 mmol/L (3.5-5.1)
[2022-07-07] MEDS: EZETIMIBE 10 MG TABLET PO SCH (09:06)
[2022-07-07] MEDS: SACCHAROMYCES BOULARDII 250 MG CAP PO SCH (09:07)
[2022-07-07] MEDS: ASCORBIC ACID 500 MG TAB PO SCH (09:07)
[2022-07-07] MEDS: FERROUS SULFATE 325 MG TAB PO SCH ×2 (09:07→17:46)
[2022-07-07] MEDS: CHOLECALCIFEROL 1,000 UNITS 25 MCG TAB PO SCH (09:09)
[2022-07-07] MEDS: TAMSULOSIN HCL 0.4 MG CAP PO SCH (09:10)
[2022-07-07] MEDS: CYANOCOBALAMIN (B-12) 500 MCG TABLET PO SCH (09:10)
[2022-07-07] MEDS: SPIRONOLACTONE 12.5 MG TAB PO SCH (09:11)
[2022-07-07] MEDS: ROSUVASTATIN CALCIUM 5 MG TAB PO SCH (09:11)
[2022-07-07] MEDS: FINASTERIDE 5 MG TAB PO SCH (09:12)
[2022-07-07] MEDS: AMMONIUM LACTATE 12% LOTION 225 GM BTL EXT SCH ×2 (09:14→20:47)
[2022-07-07] MEDS: OMEGA-3 (PURIFIED FISH OIL) 1 GM CAP PO SCH ×2 (09:15→20:48)
[2022-07-07] MEDS: FOLIC ACID 400 MCG TAB PO SCH (09:15)
[2022-07-07] MEDS: hydrALAZINE HCL 25 MG TAB PO SCH ×2 (09:42→20:49)
--- NOTE | 2022-07-07 11:02 | Nephrology Progress Note ---
Date of Service July 07, 2022 Assessment & Plan (1) DILIP (acute kidney injury): Plan: Non-oliguric. Creatinine stable. Electrolytes acceptable. Volume status relatively euvolemic, remains intravascularly depleted. no signs of decompensated CHF. Medications appropriate for kidney function. I discussed with Dr. Salgado this AM. Suspect Carter is approaching new baseline for creatinine. No emergent indication for [employer]. Given frailty, age, and medical comorbidities, Carter would not likely benefit for dialysis if required. He has expressed understanding in this regard. (2) Chronic combined systolic and diastolic CHF (congestive heart failure): Plan: Volume status acceptable. Diuretics held -- continue to hold today. Avoid EMILIANO/ARB due to advanced kidney dysfunction and history of DILIP. Document I/O's. At discharge, Apixaban would be preferred alternative to rivaroxaban for rn long term care anticoagulation given underlying kidney dysfunction. (3) Chronic kidney disease: Plan: CKD IV-V. Suspect creatinine 2.66 mg/dL is around new baseline. Close outpatient follow up will be required with me in the [facility] nephrology clinic in [place]. (4) Lab test positive for detection of COVID-19 virus: Plan: Symptomatically improving. (5) Anemia in chronic kidney disease: Plan: Repeat Hgb with AM labs. Completed 4 x 200 mg IV infusions of Venofer in September. Maintained on Auryxia twice daily as outpatient. Aranesp 60 mcg q 2 weeks, as outpatient. Admission and Anticipated Discharge Date Admission Date: July 01, 2022 Subjective No acute events overnight. Ej started to experience increasing R hip pain overnight. He denies similar symptoms in the past. No radicular symptoms. No injury reported. Pain improved but very positional. He describes both pain in his groin area that is exacerbated by extending the leg and pain over the outside of the hip. He denies notable tenderness. Appetite is poor. No fevers or chills. He denies notable dyspnea. Carter reported this AM that his biggest frustration is being in the hospital and he would really like to go home. He reaffirmed to me this morning during our conversation that he would not want hemodialysis, if kidney function worsens. Review of Systems Review of Systems: All systems reviewed & are unremarkable except as noted in HPI & below Physical Exam Constitutional: + ill appearing and + frail appearing Eyes: + anicteric sclerae; pupils not irregular ENMT: Ears: + hearing impairment Mouth: + dry oral mucous membranes; no oral mucosal abnormality Neck: normal visual inspection and trachea midline Respiratory: normal respiratory effort Auscultation: lungs clear to auscultation bilaterally Cardiovascular: Rate/Rhythm: regular rate Heart Sounds: normal S1, normal S2 and + murmur Vessels: + JVD Extremities: + edema and + varicosities Musculoskeletal: Extremities: no cyanosis and no clubbing Skin: + turgor decreased; no jaundice Neurologic: Motor/Sensory: no tremor and no asterixis Psychiatric: Orientation: alert and oriented x 3 Results & Data ([facility]) Vital Signs (Past 12 Hours) Vital Signs Temp Pulse Pulse Resp BP Pulse Ox O2 Del Method 07/07/22 08:03 36.5 C 70 19 112/50 L 93 Room Air 07/07/22 07:11 67 07/07/22 03:19 36.3 C L 63 18 125/66 97 Room Air 07/07/22 00:15 74 Laboratory Results Laboratory Results - last 24 hr 07/07/22 05:54 Sodium 130 L Potassium 3.5 Chloride 91 L Carbon Dioxide 31 Anion Gap 8 BUN 98 H Creatinine 2.66 H Est Cr Clr Drug Dosing 18.0 Est GFR ( Amer) 24.1 Est GFR (Non-Af Amer) 20.8 BUN/Creatinine Ratio 36.8 H Glucose 118 H Calcium 9.0 Phosphorus 3.5 Albumin 3.4 PG Care Time/CCT Total # of Minutes Spent Total Time Spent with Patient: Total time spent is greater than 50% in coordination of care (as documented) at patient's floor/unit and/or counseling patient: Coding Level of Care Code 13182 SUB INP/OBS CARE 3/50MIN Diagnoses DILIP (acute kidney injury) N17.9 Chronic combined systolic and diastolic CHF (congestive heart failure) I50.42 Chronic kidney disease N18.9 Chronic kidney disease stage: unspecified stage Lab test positive for detection of COVID-19 virus U07.1 Anemia in chronic kidney disease N18.9; D63.1 (3) Chronic kidney disease Chronic kidney disease stage: unspecified stage Qualified Code(s): N18.9 - Chronic kidney disease, unspecified
[2022-07-07] MEDS: carvediloL 12.5 MG TAB PO SCH ×2 (11:48→20:47)
--- NOTE | 2022-07-07 12:36 | CT Scan Report ---
CT hip RT wo con CLINICAL HISTORY: R hip pain, noac TECHNIQUE: Multidetector row helical CT of the right hip was performed without intravenous contrast. Coronal and sagittal reformations were obtained. Automated dose lowering techniques and/or adjustment according to patient size were utilized for this examination. CT DOSE: 239.11 mGy.cm Comparison: None available at the time of this dictation. FINDINGS: The osseous structures are without fracture or dislocation. Degenerative changes are seen. No joint e ffusion is seen. Passes with calcifications are seen. IMPRESSION: No evidence of acute fracture or dislocation. ACT 112: Negative or not required by law. Electronically signed by: Esteban Waddell M.D. 07/07/2022 12:33 PM
--- NOTE | 2022-07-07 12:57 | Hospitalist Progress Note ---
Date of Service July 07, 2022 Assessment & Plan (1) Generalized muscle weakness: (2) Elevated troponin I level: (3) Lab test positive for detection of COVID-19 virus: (4) Hypokalemia: (5) Chronic kidney disease: (6) Chronic combined systolic and diastolic CHF (congestive heart failure): Plan: 87-year-old male who has significant past medical history of CAD status post CABG in 1995, chronic diastolic and systolic heart failure, HTN, HLD, PAD, carotid artery disease status post endarterectomy, anemia of chronic disease and CKD stage IIIb who presents to ED secondary to weakness x2 days. SARS-CoV-2 -CXR shows bilateral pleural effusion but this is chronic -No evidence of hypoxia. Patient with no respiratory symptoms -Clinically stable Elevated troponin CAD with history of CABG Chronic systolic and diastolic CHF -No chest pain, no SOB -troponin elevation on admission to be expected with his CKD and appears chronically elevated -No clinically symptom of volume overload noted on exam -continue Coreg, plavix, spironolactone, rosuvastatin Hyponatremia Na 130 today Diuretic on hold Continue monitor BMP Generalized weakness - Continue PT/OT eval - Fall precaution Right hip tenderness CT hip showed no evidence of acute fracture or dislocation. Will order Lidocaine patch Fall precaution Continue monitor DILIP on CKD stage 3b -holding bumex for now -It seems that is his baseline creatinine since creatinine back in 03/20 was 3 -Creatinine improved to 2.6 today. -Nephrology on board recommended to continue to hold Bumex for now due to increase on creatinine Anemia of chronic disease receives aranesp Hgb stable iron supplement Patient with constipation then with blood streaked stools. FOBT negative GI on board DVT ppx:Xarelto, plavix FULL CODE Disposition Will discharge once medically stable Admission and Anticipated Discharge Date Admission Date: July 01, 2022 Subjective Pt was seen and examined for follow Lying in bed with no acute distress Pt said that he is having pain in his right hip He said that his breathing is stable Denies any chest pain, palpitation, dizziness and SOB Review of Systems Review of Systems: All systems reviewed & are unremarkable except as noted in Subjective Physical Exam Physical Exam: General- No acute distress Head- atraumatic Eyes- PERRL, EOMI, ENT- oropharynx clear, decrease hearing function Neck- supple, no JVD Lungs- clear to auscultation Heart- regular rhythm; no murmur Abdomen- normal bowel sounds, soft, nontender Extremities- no calf tenderness Neuro- alert, oriented x 3; PERRL, EOMI; no facial palsy; no dysarthria Skin- warm & dry Results & Data Results & Data ([facility]) Vital Signs (Past 12 Hours) Vital Signs Temp Pulse Pulse Resp BP Pulse Ox O2 Del Method 07/07/22 12:19 36.5 C 68 20 119/58 L 94 Room Air 07/07/22 11:39 36.7 C 71 18 130/65 97 Room Air 07/07/22 08:03 36.5 C 70 19 112/50 L 93 Room Air 07/07/22 07:11 67 07/07/22 03:19 36.3 C L 63 18 125/66 97 Room Air (5) Chronic kidney disease Chronic kidney disease stage: unspecified stage Qualified Code(s): N18.9 - Chronic kidney disease, unspecified
[2022-07-07] MEDS: LIDOCAINE 5% 1 PATCH TD SCH (13:56)
[2022-07-08] MEDS: hydrALAZINE HCL 25 MG TAB PO SCH (08:29)
[2022-07-08] MEDS: OMEGA-3 (PURIFIED FISH OIL) 1 GM CAP PO SCH (08:30)
[2022-07-08] MEDS: ROSUVASTATIN CALCIUM 5 MG TAB PO SCH (08:30)
[2022-07-08] MEDS: ASCORBIC ACID 500 MG TAB PO SCH (08:30)
[2022-07-08] MEDS: EZETIMIBE 10 MG TABLET PO SCH (08:30)
[2022-07-08] MEDS: SPIRONOLACTONE 12.5 MG TAB PO SCH (08:31)
[2022-07-08] MEDS: TAMSULOSIN HCL 0.4 MG CAP PO SCH (08:31)
[2022-07-08] MEDS: CHOLECALCIFEROL 1,000 UNITS 25 MCG TAB PO SCH (08:31)
[2022-07-08] MEDS: FINASTERIDE 5 MG TAB PO SCH (08:31)
[2022-07-08] MEDS: FERROUS SULFATE 325 MG TAB PO SCH (08:31)
[2022-07-08] MEDS: SACCHAROMYCES BOULARDII 250 MG CAP PO SCH (08:31)
[2022-07-08] MEDS: CYANOCOBALAMIN (B-12) 500 MCG TABLET PO SCH (08:31)
[2022-07-08] MEDS: carvediloL 12.5 MG TAB PO SCH (08:32)
[2022-07-08] MEDS: FOLIC ACID 400 MCG TAB PO SCH (08:32)
[2022-07-08] MEDS: LIDOCAINE 5% 1 PATCH TD SCH (08:35)
[2022-07-08] MEDS: AMMONIUM LACTATE 12% LOTION 225 GM BTL EXT SCH (08:38)
--- NOTE | 2022-07-08 09:29 | Nephrology Progress Note ---
Date of Service July 08, 2022 Assessment & Plan (1) DILIP (acute kidney injury): Plan: Non-oliguric. AM labs pending. Volume status relatively euvolemic. No signs of decompensated CHF. Medications appropriate for kidney function. I discussed with Dr. Salgado and the patient's son (Vernon) yesterday. Suspect Carter is approaching new baseline for creatinine. Potential discharge home today, if kidney function stable. Close outpatient follow up will be required. Carter should see me in the [facility] nephrology clinic in [place] as an outpatient next Monday 07/17. Unfortunately, Carter's son does need to prep for a colonoscopy scheduled at [facility] for tomorrow so he has a limited window of time in which to provide transporation today. 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 Given frailty, age, and medical comorbidities, Carter would not likely benefit for dialysis if required. He has expressed understanding in this regard. (2) Chronic combined systolic and diastolic CHF (congestive heart failure): Plan: Volume status acceptable. Diuretics held -- continue to hold today. May use PRN dosing based on weight at discharge. Bumex 2 mg PO daily as needed for weight gain >3 hours. remains on spironolactone. Avoid EMILIANO/ARB due to advanced kidney dysfunction and history of DILIP. Document I/O's. 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 (3) Chronic kidney disease: Plan: CKD IV-V. Suspect creatinine 2.6 mg/dL is around new baseline. Close outpatient follow up will be required with me in the [facility] nephrology clinic in [place]. (4) Lab test positive for detection of COVID-19 virus: Plan: Symptomatically improving. (5) Anemia in chronic kidney disease: Plan: Repeat Hgb with AM labs. Completed 4 x 200 mg IV infusions of Venofer in September. Maintained on Auryxia twice daily as outpatient. Aranesp 60 mcg q 2 weeks, as outpatient. Admission and Anticipated Discharge Date Admission Date: July 01, 2022 Subjective No acute events overnight. Carter states that he wants to go home today. Denies notable shortness of breath. Appetite poor. No fevers or chills. Review of Systems Review of Systems: All systems reviewed & are unremarkable except as noted in HPI & below Physical Exam Constitutional: + ill appearing and + frail appearing Eyes: + anicteric sclerae; pupils not irregular ENMT: Ears: + hearing impairment Mouth: + dry oral mucous membranes; no oral mucosal abnormality Neck: normal visual inspection and trachea midline Respiratory: normal respiratory effort Auscultation: lungs clear to auscultation bilaterally Cardiovascular: Rate/Rhythm: regular rate Heart Sounds: normal S1, normal S2 and + murmur Vessels: + JVD Extremities: + edema and + varicosities Musculoskeletal: Extremities: no cyanosis and no clubbing Skin: + turgor decreased; no jaundice Neurologic: Motor/Sensory: no tremor and no asterixis Psychiatric: Orientation: alert and oriented x 3 Results & Data ([facility]) Vital Signs (Past 12 Hours) Vital Signs Temp Pulse Pulse Resp BP Pulse Ox O2 Del Method 07/08/22 08:24 37.4 C 69 20 132/77 97 Room Air 07/08/22 07:28 63 07/08/22 04:26 37.5 C 68 16 103/54 L 95 Room Air 07/08/22 00:54 71 07/07/22 21:43 36.6 C 74 19 126/89 94 Room Air PG Care Time/CCT Total # of Minutes Spent Total Time Spent with Patient: Total time spent is greater than 50% in coordination of care (as documented) at patient's floor/unit and/or counseling patient: Coding Level of Care Code 90759 SUB INP/OBS CARE 3/50MIN Diagnoses DILIP (acute kidney injury) N17.9 Chronic combined systolic and diastolic CHF (congestive heart failure) I50.42 Chronic kidney disease N18.9 Chronic kidney disease stage: unspecified stage Lab test positive for detection of COVID-19 virus U07.1 Anemia in chronic kidney disease N18.9; D63.1 (3) Chronic kidney disease Chronic kidney disease stage: unspecified stage Qualified Code(s): N18.9 - Chronic kidney disease, unspecified
[2022-07-08 09:52] LABS: Albumin Level 3.5 gm/dl (3.4-5.0); Calcium 9.1 mg/dl (8.5-10.1); Creatinine Clr Calc Pharmacy 19.5 ml/min; Est GFR (African American) 26.6 ml/min; Phosphorus 3.5 mg/dl (2.5-4.9); Potassium 3.9 mmol/L (3.5-5.1)
== END 2022-07-08 13:22 | disposition home health service (06) | DRG 178 ==
LOC: ED 11:35 → SUATTDRO 13:42 → EDINP 13:42 → 2S 15:52 → 2N 07-03 05:47

== ENCOUNTER 2022-07-16 18:09 | Inpatient (IN) ==
--- NOTE | 2022-07-16 18:30 | ED Triage Note ---
Date of Service July 16, 2022 History of Present Illness This patient was briefly evaluated while in triage. An abbreviated physical exam was performed. This patient is a 87-year-old Male who presents to the ED for evaluation of increased weakness, unable to care for himself, black stool, not eating. Incr easingly disoriented. There was discussion he needs to be placed in a custodial. Dischaged from this hospital on 07/08. Lives by himself currently. Physical Exam CONSTITUTIONAL: weak and ill appearing, pale SKIN: pale, dry RESPIRATORY: in no respiratory distress Initial orders for labs and / or imaging were placed and patient was placed directly into a room due to hypotension. Please see further documentation for the full ED course.
[2022-07-16] MEDS ORDERED: SODIUM CHLORIDE 0.9% 500 ML IV ONE (18:49)
[2022-07-16 19:21] LABS: Basophils # (auto) 0.03 K/uL (0-0.2); Basophils % (auto) 0.3 %; Eosinophils # (auto) 0.18 K/uL (0-0.50); Eosinophils % (auto) 1.8 %; Hematocrit (blood only) 35.2 % (42.0-52.0); Hemoglobin 11.4 g/dl (14.0-18.0); Immature Granulocytes # (auto) 0.05 K/uL (0.01-0.20); Immature Granulocytes % (auto) 0.5 %; Lymphocytes # (auto) 0.49 K/uL (1.2-3.4); Mean Corpuscular Hemoglobin 26.4 pg (25.0-34.0); Mean Corpuscular Hgb Conc 32.4 g/dL (32.0-36.0); Mean Corpuscular Volume 81.5 fL (80.0-100.0); Mean Platelet Volume 10.7 fL (9.4-12.4); Monocytes # (auto) 0.77 K/uL (0.11-0.59); Monocytes % (auto) 7.8 %; Neutrophils # (auto) 8.36 K/uL (1.40-6.50); Neutrophils % (auto) 84.6 %; Platelet Count 297 K/uL (130-400); RDW Coefficient of Variation 19.5 % (11.5-14.5); RDW Standard Deviation 57.5 fL (36.4-46.3); Red Blood Count 4.32 M/uL (4.70-6.10); White Blood Count 9.88 K/ul (4.8-10.8)
[2022-07-16 19:26] LABS: Alanine Aminotransferase 16 U/L (7-52); Albumin Globulin Ratio 0.9 (0.9-2); Albumin Level 3.5 gm/dl (3.4-5.0); Alkaline Phosphatase 98 U/L (34-104); Anion Gap 11 (3-11); Aspartate Aminotransferase 19 U/L (13-39); BUN Creatinine Ratio 47.7 (10-20); Bilirubin Direct 0.4 mg/dl (0-0.2); Bilirubin,Total 0.9 mg/dl (0.2-1.0); Blood Urea Nitrogen 112 mg/dl (6-23); Calcium 9.7 mg/dl (8.5-10.1); Carbon Dioxide 32 mmol/L (21-32); Chloride 85 mmol/L (98-107); Est GFR (Non-African American) 24.1 ml/min; Globulin 3.9 gm/dl (2.5-4.0); Glucose 184 mg/dl (70-99(Fasting)); Lipase 64 U/L (11-82); Magnesium 2.7 mg/dl (1.7-2.4); Phosphorus 2.6 mg/dl (2.5-4.9); Potassium 3.2 mmol/L (3.5-5.1); Sodium 128 mmol/L (136-145); Total Protein 7.4 gm/dl (6.0-8.3)
--- NOTE | 2022-07-16 20:14 | CT Scan Report ---
Exam(s): CT HEAD Without Contrast EXAM: CT Head Without Intravenous Contrast CLINICAL HISTORY: Reason for exam: weakness. TECHNIQUE: Axial computed tomography images of the head/brain without intravenous contrast. Automated exposure control was utilized for the study. A dose lowering technique was utilized adhering to the principles of ALARA. COMPARISON: No relevant prior studies available. FINDINGS: No acute intracranial hemorrhage. No midline shift or mass effect. Encephalomalacia in the right [employer]IFICIAL [employer] DYER territory, consistent with old infarct. Age-related cerebral volume loss. Periventricular and subcortical white matter hypoattenuation, consistent with chronic microangiopathy. The visualized orbits appear grossly unremarkable. The calvarium is intact. The visualized paranasal sinuses and mastoid air cells are grossly clear. IMPRESSION: No acute intracranial hemorrhage, midline shift, or mass effect. Encephalomalacia in the right [employer]IFICIAL FLOW[employer] DYER territory, consistent with old infarct. Electronically signed by: Tito Aguirre MD 07/16/22 20:14 PM
--- NOTE | 2022-07-16 20:29 | CT Scan Report ---
Exam(s): CT ABDOMEN + PELVIS Without Contrast EXAM: CT Abdomen and Pelvis Without Intravenous Contrast CLINICAL HISTORY: Reason for exam: weakness, black stool. TECHNIQUE: Axial computed tomography images of the abdomen and pelvis without intravenous contrast. Automated exposure control was utilized for the study. A dose lowering technique was utilized adhering to the principles of ALARA. COMPARISON: No relevant prior studies available. FINDINGS: Lung bases: Unremarkable. No mass. No consolidation. Pleural space: Small right pleural effusion. ABDOMEN: Liver: Unremarkable. Gallbladder and bile ducts: Cholelithiasis. No ductal dilation. Pancreas: Unremarkable. No ductal dilation. Spleen: Unremarkable. No splenomegaly. Adrenals: Unremarkable. No mass. Kidneys and ureters: Nonobstructing 5 mm right lower pole renal calculus. Stomach and bowel: Diverticulosis, without acute diverticulitis. No small bowel obstruction. No free intraperitoneal air. PELVIS: Appendix: No findings to suggest acute appendicitis. Bladder: Unremarkable. No stones. Reproductive: Unremarkable as visualized. ABDOMEN and PELVIS: Intraperitoneal space: Unremarkable. No free air. No significant fluid collection. Bones/joints: Degenerative changes of the spine. No acute fracture. No dislocation. Soft tissues: Bilateral gynecomastia. Vasculature: Atherosclerotic changes of the aorta. Bilateral iliac stent grafts. No abdominal aortic aneurysm. Lymph nodes: Unremarkable. No enlarged lymph nodes. IMPRESSION: 1. Diverticulosis, without acute diverticulitis. No small bowel obstruction. No free intraperitoneal air. 2. Small right pleural effusion. 3. Cholelithiasis. 4. Nonobstructing 5 mm right lower pole renal calculus. Electronically signed by: Tito Aguirre MD 07/16/22 20:28 PM
[2022-07-16 20:37] LABS: Troponin I High Sensitivity 100.1 pg/ml (0-20)
--- NOTE | 2022-07-16 21:22 | Emergency Department Note ---
Impression & Plan Generalized weakness, CKD (chronic kidney disease), Hyponatremia, Dehydration, Adult failure to thrive, Hypokalemia ED Provider Note NAME: JUDITH JEFFERY AGE: 87 SEX: M ARRIVES VIA: Walk-In INFORMANT: Patient ED PROVIDER(S): Fritz Aguayo MD CHIEF COMPLAINT: Weakness, poor oral intake. PLAN: Disposition: Admit MEDICAL DECISION MAKING: The patient is an 87-year-old gentleman with a past medical history of CKD, PAD, CAD, hypertension, hyperlipidemia, acute on chronic systolic heart failure, BPH, recent admission to this facility from 07/01-07/08 for COVID-19 who presents to the emergency department via walk-in, accompanied by his nephew and his for evaluation of progressive generalized weakness and malaise with poor oral intake since his discharge from this facility. They report he has home care coming to his house including physical therapy but has been determined that the patient would benefit from care home care which is still pending availability. The patient is a poor historian and denies any acute concerns but family acknowl edges that he has not been himself since his discharge and does seem to exhibit some confusion about his situation. They also report the patient has had black stools which they do not feel he has had previously however they do acknowledge that he does take iron supplements. The patient did have mild hematochezia when he was in the hospital and outpatient colonoscopy was recommended but has yet to be arranged. On arrival the patient is fatigued appearing but no acute distress, afebrile with blood pressure in triage initially 70/50 however improved upon arriving to his room in [facility] and additionally stable and improved following gentle IV fluid hydration in the setting of history of CKD and CHF. He appears clinically dry. He has no focal neurologic deficits. Rectal exam was performed and did demonstrate black stool however Hemoccult negative and so likely related to the patient's iron supplementation. EKG without overt acute ischemia. CXR negative for acute cardiopulmonary proce ss. WBC and platelets within normal limits. H/H similar to improved from prior values. Chemistry without metabolic acidosis. Creatinine is 2.3, similar to prior values. BUN is elevated at 110 consistent with patient's clinically dry appearance and similar to prior. LFTs unremarkable. Sodium 128, similar to prior and with glucose of 184. High-sensitivity troponin 100, similar to and improved from prior. Lipase is not elevated. TSH within normal limits. UA without convincing evidence of infection. COVID-19 RNA, LUZMA test was negative. 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 CT of the abd/pelvis n egative for acute abnormality. Given the patient's poor oral intake with dehydration and failure to thrive the patient and family agree with plan for admission. Case was discussed with Dr. Motta, [facility], who will evaluate the patient for admission. Triage Nursing notes reviewed and agree them. Prior/outside medical records reviewed Vital Signs: reviewed Differential diagnosis: Infection, dehydration, metabolic abnormality, hypo/hyperglycemia, electrolyte disturbance, anemia, hypoxia, cardiac sources, intracerebral event, toxicologic, neurologic, as well as other pathologies. ER treatment provided: See below. Diagnostics interpreted by me: ECG: Sinus rhythm with frequent previous PVCs, 61 bpm, LVH, no overt ST elevation, QTc 432, QRS 100 Cardiac Monitoring: An order for continuous cardiac monitoring was placed and demonstrated Sinus rhythm with frequent previous PVCs, 61 bpm. Laboratory studies: See below Imaging studies: See below Consultation(s): Case was discussed with Dr. Motta, [facility], who will evaluate the patient for admission. HPI: The patient is an 87-year-old gentleman with a past medical history of CKD, PAD, CAD, hypertension, hyperlipidemia, acute on chronic systolic heart failure, BPH, recent admission to this facility from 07/01-07/08 for COVID-19 who presents emergency department via walk-in, accompanied by his nephew and his for evaluation of progressive generalized weakness and malaise with poor oral intake since his discharge from this facility. They report he has home care coming to his house including physical therapy but has been determined that the patient would benefit from care home care which is still pending availability. The patient is a poor historian and denies any acute concerns but family acknowledges that he has not been himself since his discharge and does seem to exhibit some confusion about his situation. They also report the patient has had black stools which they do not feel he has had previously however they do acknowledge that he does take iron supplements. The patient did have mild hematochezia when he was in the hospital and outpatient colonoscopy was recommended but has yet to be arranged. ROS: See above HPI for pertinent positives & negatives. A total of 10 systems r eviewed and were otherwise negative. VITALS:See Below PHYSICAL EXAMINATION: GENERAL: Awake, alert, fatigued-appearing, in no distress HENT: Normocephalic, atraumatic. Oropharynx with dry mucous membranes and otherwise unremarkable. EYES: Normal conjunctiva. Sclera non-icteric. NECK: Supple. No nuchal rigidity. FROM. No JVD. RESPIRATORY: Clear to auscultation. CARDIAC: Regular rate, normal rhythm. Extremities warm and well perfused. Pulses equal. ABDOMEN: Soft, non-distended. No tenderness to palpation. No rebound or guarding. No masses. RECTAL: Black stool that is Hemoccult negative. No gross red blood. MUSCULOSKELETAL: Chest examination reveals no tenderness. The back is symmetrical on inspection without obvious abnormality. There is no CVA tenderness to palpation. No joint edema. LOWER EXTREMITIES: Calves are equal size bilaterally and non-tender. No edema. No discoloration. NEURO: Normal sensorium. No sensory or motor deficits noted. SKIN: No rash or jaundice noted. Fritz Aguayo MD Past Med/Surg History Medical History Carotid stenosis Diastolic CHF, chronic DVT prophylaxis Hearing loss Hematuria HTN (hypertension) Hyperlipidemia Nephrolithiasis Osteoarthritis PAD (peripheral artery disease) Surgical History H/O endarterectomy H/O lithotripsy Hx of CABG S/P colonoscopic polypectomy S/P total knee arthroplasty left Family History Denies family history of Diabetes Kidney disease Social History Smoking Status: Never smoker Do You Dip or Chew Tobacco: No; Hx Alcohol Use: No Hx Substance Use: No Preferred Language: Estonian Communication Ability: Effective Hearing Ability: Hard of Hearing Blacking Wheel Tender Required: No Beliefs That Will Affect Care: None Current Living Situation: Alone current occupational status: retired Other Information That Helps Us Care for You: No Feels Safe at Home: Yes Safety Concerns: Feels Safe At This Time Assistive Devices: Cane, Denture - Upper, Denture - Lower, Glasses and Hearing Aid - Right Allergies Allergies Allergy/AdvReac Type Severity Reaction Status Date / Time doxazosin [From Cardura] Allergy Intermediate HIVES and Verified 06/26/22 09:45 ITCHING furosemide [From Lasix] Allergy Intermediate HIVES and Verified 06/26/22 09:45 ITCHING hydrochlorothiazide Allergy Intermediate ITCHING Verified 06/26/22 09:45 potassium chloride Allergy Intermediate HIVES and Verified 06/26/22 09:45 ITCHING clonidine Allergy Unknown Unknown Verified 06/26/22 09:45 ketorolac [From Toradol] AdvReac Severe ACUTE Verified 06/26/22 09:45 KIDNEY INJURY lisinopril AdvReac Intermediate COUGH Verified 06/26/22 09:45 Home Meds Home Medications Medication Instructions Recorded Confirmed zinc 50 mg tablet 50 mg PO QAM 12/06/20 07/16/22 cholecalciferol (vitamin D3) 50 50 mcg PO QAM 09/25/21 07/16/22 mcg (2,000 unit) tablet (Vitamin D3) omega-3 fatty acids 1,000 mg 2,000 mg PO AMPM 11/28/21 07/16/22 capsule acetaminophen 500 mg tablet 1,000 mg PO Q6H PRN Fever Or Pain 07/16/22 07/16/22 (Tylenol Extra Strength) ascorbic acid (vitamin C) 1,000 mg 1 g PO QAM 07/16/22 07/16/22 tablet bumetanide 1 mg tablet 1 mg PO QAM 07/16/22 07/16/22 carvedilol 3.125 mg tablet 3.125 mg PO AMPM 07/16/22 07/16/22 clopidogrel 75 mg tablet 75 mg PO QPM 07/16/22 07/16/22 cyanocobalamin (vitamin B-12) 2,500 mcg sublingual QAM 07/16/22 07/16/22 2,500 mcg sublingual tablet (Vitamin B-12) dutasteride 0.5 mg capsule 0.5 mg PO QAM 07/16/22 07/16/22 ezetimibe 10 mg tablet 10 mg PO QAM 07/16/22 07/16/22 ferric citrate 210 mg iron tablet 210 mg PO AMPM 07/16/22 07/16/22 (Auryxia) hydralazine 25 mg tablet 25 mg PO AMPM 07/16/22 07/16/22 magnesium oxide 400 mg PO QAM 07/16/22 07/16/22 metolazone 5 mg tablet 5 mg PO 2XWK 07/16/22 07/16/22 rosuvastatin 5 mg tablet 5 mg PO QAM 07/16/22 07/16/22 spironolactone 25 mg tablet 12.5 mg PO QAM 07/16/22 07/16/22 tamsulosin 0.4 mg capsule 0.8 mg PO QAM 07/16/22 07/16/22 Previous Rx's Medication Instructions Recorded nitroglycerin 0.4 mg sublingual 0.4 mg sublingual Q5M PRN chest 11/24/20 tablet (Nitrostat) pain #1 tab triamcinolone acetonide 0.1 % 1 applic topical TID PRN itching 11/24/20 topical cream #15 grams folic acid 400 mcg tablet 400 mcg PO QAM #30 tabs 08/31/21 menthol 0.44 %-zinc oxide 20.6 % 1 applic topical TID PRN skin 09/05/21 topical ointment (Calmoseptine) irritation #113 grams darbepoetin lizzy in polysorbat 60 60 mcg subcut .COMPLEX #1 mL 10/03/21 mcg/mL in polysorbate injection (Aranesp) Results & Data (ED) Vital Signs Vital Signs - 24 hr 07/16/22 20:09 07/16/22 20:10 07/16/22 20:10 Pulse Rate from SpO2 Sensor 65 65 Blood Pressure 131/68 131/68 Blood Pressure Mean 89 89 Pulse Oximetry 97 100 Oxygen Delivery Method Room Air 07/16/22 20:30 07/16/22 20:31 07/16/22 20:38 Pulse Rate from SpO2 Sensor 70 75 Blood Pressure 138/65 Blood Pressure Mean 89 Pulse Oximetry 100 96 Oxygen Delivery Method 07/16/22 20:38 07/16/22 21:00 07/16/22 21:00 Pulse Rate from SpO2 Sensor 70 73 Blood Pressure 96/52 L Blood Pressure Mean 66 Pulse Oximetry 98 98 Oxygen Delivery Method 07/16/22 21:30 07/16/22 22:00 07/16/22 22:30 Pulse Rate from SpO2 Sensor 65 60 Blood Pressure 124/45 L Blood Pressure Mean 71 Pulse Oximetry 97 97 Oxygen Delivery Method 07/16/22 22:30 07/16/22 23:00 07/16/22 23:00 Pulse Rate from SpO2 Sensor 72 69 Blood Pressure 129/65 Blood Pressure Mean 86 Pulse Oximetry 92 98 Oxygen Delivery Method 07/16/22 23:30 07/17/22 00:00 07/17/22 00:30 Pulse Rate from SpO2 Sensor 57 L 57 L 69 Blood Pressure 128/75 Blood Pressure Mean 92 Pulse Oximetry 97 96 97 Oxygen Delivery Method 07/17/22 01:00 Pulse Rate from SpO2 Sensor 61 Blood Pressure 115/73 Blood Pressure Mean 87 Pulse Oximetry 95 Oxygen Delivery Method Laboratory Data Attestation: I reviewed the patient's lab results. 07/16/22 15:46 07/16/22 15:46 Lab Results 07/16/22 07/16/22 07/16/22 Range/Units 15:46 15:46 15:46 WBC 9.88 (4.8-10.8) K/ul RBC 4.32 L (4.70-6.10) M/uL Hgb 11.4 L (14.0-18.0) g/dl Hct 35.2 L (42.0-52.0) % MCV 81.5 (80.0-100.0) fL MCH 26.4 (25.0-34.0) pg MCHC 32.4 (32.0-36.0) g/dL RDW Std Deviation 57.5 H (36.4-46.3) fL RDW Coeff of Dmitriy 19.5 H (11.5-14.5) % Plt Count 297 (130-400) K/uL MPV 10.7 (9.4-12.4) fL Immature Gran % (Auto) 0.5 % Neut % (Auto) 84.6 % Lymph % (Auto) 5.0 % [place] % (Auto) 7.8 % Eos % (Auto) 1.8 % Baso % (Auto) 0.3 % Neut # (Auto) 8.36 H (1.40-6.50) K/uL Lymph # (Auto) 0.49 L (1.2-3.4) K/uL [place] # (Auto) 0.77 H (0.11-0.59) K/uL Eos # (Auto) 0.18 (0-0.50) K/uL Baso # (Auto) 0.03 (0-0.2) K/uL Immature Gran # (Auto) 0.05 (0.01-0.20) K/uL Sodium 128 L (136-145) mmol/L Potassium 3.2 L (3.5-5.1) mmol/L Chloride 85 L (98-107) mmol/L Carbon Dioxide 32 (21-32) mmol/L Anion Gap 11 (3-11) BUN 112 H (6-23) mg/dl Creatinine 2.35 H (0.6-1.4) mg/dl Est Cr Clr Drug Dosing Not Reportable Est GFR ( Amer) 28.0 ml/min Est GFR (Non-Af Amer) 24.1 ml/min BUN/Creatinine Ratio 47.7 H (10-20) Glucose 184 H (70-99(Fasting)) mg/dl Lactate (0.4-2.0) mmol/L Calcium 9.7 (8.5-10.1) mg/dl Phosphorus 2.6 (2.5-4.9) mg/dl Magnesium 2.7 H (1.7-2.4) mg/dl Total Bilirubin 0.9 (0.2-1.0) mg/dl Direct Bilirubin 0.4 H (0-0.2) mg/dl AST 19 (13-39) U/L ALT 16 (7-52) U/L Alkaline Phosphatase 98 (34-104) U/L Troponin I High Sens 100.1 H* (0-20) pg/ml Total Protein 7.4 (6.0-8.3) gm/dl Albumin 3.5 (3.4-5.0) gm/dl Globulin 3.9 (2.5-4.0) gm/dl Albumin/Globulin Ratio 0.9 (0.9-2) Lipase 64 (11-82) U/L TSH 1.732 (0.300-4.500) uIu/ml Urine Color Urine Appearance (Clear) Urine pH (4.5-7.5) Ur Specific Fries (1.000-1.030) Urine Protein (Negative) Urine Glucose (UA) (Negative) Urine Ketones (Negative) Urine Blood (Negative) Urine Nitrite (Negative) Urine Bilirubin (Negative) Urine Urobilinogen (Negative) Ur Leukocyte Esterase (Negative) SARS-CoV-2, RNA, NAAT (NEGATIVE) Blood Type Antibody Screen 07/16/22 07/16/22 07/16/22 Range/Units 18:40 19:07 19:15 WBC (4.8-10.8) K/ul RBC (4.70-6.10) M/uL Hgb (14.0-18.0) g/dl Hct (42.0-52.0) % MCV (80.0-100.0) fL MCH (25.0-34.0) pg MCHC (32.0-36.0) g/dL RDW Std Deviation (36.4-46.3) fL RDW Coeff of Dmitriy (11.5-14.5) % Plt Count (130-400) K/uL MPV (9.4-12.4) fL Immature Gran % (Auto) % Neut % (Auto) % Lymph % (Auto) % [place] % (Auto) % Eos % (Auto) % Baso % (Auto) % Neut # (Auto) (1.40-6.50) K/uL Lymph # (Auto) (1.2-3.4) K/uL [place] # (Auto) (0.11-0.59) K/uL Eos # (Auto) (0-0.50) K/uL Baso # (Auto) (0-0.2) K/uL Immature Gran # (Auto) (0.01-0.20) K/uL Sodium (136-145) mmol/L Potassium (3.5-5.1) mmol/L Chloride (98-107) mmol/L Carbon Dioxide (21-32) mmol/L Anion Gap (3-11) BUN (6-23) mg/dl Creatinine (0.6-1.4) mg/dl Est Cr Clr Drug Dosing Est GFR ( Amer) ml/min Est GFR (Non-Af Amer) ml/min BUN/Creatinine Ratio (10-20) Glucose (70-99(Fasting)) mg/dl Lactate 2.2 H* (0.4-2.0) mmol/L Calcium (8.5-10.1) mg/dl Phosphorus (2.5-4.9) mg/dl Magnesium (1.7-2.4) mg/dl Total Bilirubin (0.2-1.0) mg/dl Direct Bilirubin Cancelled (0-0.2) mg/dl AST (13-39) U/L ALT (7-52) U/L Alkaline Phosphatase (34-104) U/L Troponin I High Sens (0-20) pg/ml Total Protein (6.0-8.3) gm/dl Albumin (3.4-5.0) gm/dl Globulin (2.5-4.0) gm/dl Albumin/Globulin Ratio (0.9-2) Lipase Cancelled (11-82) U/L TSH (0.300-4.500) uIu/ml Urine Color Urine Appearance (Clear) Urine pH (4.5-7.5) Ur Specific Fries (1.000-1.030) Urine Protein (Negative) Urine Glucose (UA) (Negative) Urine Ketones (Negative) Urine Blood (Negative) Urine Nitrite (Negative) Urine Bilirubin (Negative) Urine Urobilinogen (Negative) Ur Leukocyte Esterase (Negative) SARS-CoV-2, RNA, NAAT NEGATIVE (NEGATIVE) Blood Type Antibody Screen 07/16/22 07/16/22 07/16/22 Range/Units 19:19 20:39 21:00 WBC (4.8-10.8) K/ul RBC (4.70-6.10) M/uL Hgb (14.0-18.0) g/dl Hct (42.0-52.0) % MCV (80.0-100.0) fL MCH (25.0-34.0) pg MCHC (32.0-36.0) g/dL RDW Std Deviation (36.4-46.3) fL RDW Coeff of Dmitriy (11.5-14.5) % Plt Count (130-400) K/uL MPV (9.4-12.4) fL Immature Gran % (Auto) % Neut % (Auto) % Lymph % (Auto) % [place] % (Auto) % Eos % (Auto) % Baso % (Auto) % Neut # (Auto) (1.40-6.50) K/uL Lymph # (Auto) (1.2-3.4) K/uL [place] # (Auto) (0.11-0.59) K/uL Eos # (Auto) (0-0.50) K/uL Baso # (Auto) (0-0.2) K/uL Immature Gran # (Auto) (0.01-0.20) K/uL Sodium (136-145) mmol/L Potassium (3.5-5.1) mmol/L Chloride (98-107) mmol/L Carbon Dioxide (21-32) mmol/L Anion Gap (3-11) BUN (6-23) mg/dl Creatinine (0.6-1.4) mg/dl Est Cr Clr Drug Dosing Est GFR ( Amer) ml/min Est GFR (Non-Af Amer) ml/min BUN/Creatinine Ratio (10-20) Glucose (70-99(Fasting)) mg/dl Lactate 1.5 (0.4-2.0) mmol/L Calcium (8.5-10.1) mg/dl Phosphorus (2.5-4.9) mg/dl Magnesium (1.7-2.4) mg/dl Total Bilirubin (0.2-1.0) mg/dl Direct Bilirubin (0-0.2) mg/dl AST (13-39) U/L ALT (7-52) U/L Alkaline Phosphatase (34-104) U/L Troponin I High Sens (0-20) pg/ml Total Protein (6.0-8.3) gm/dl Albumin (3.4-5.0) gm/dl Globulin (2.5-4.0) gm/dl Albumin/Globulin Ratio (0.9-2) Lipase (11-82) U/L TSH (0.300-4.500) uIu/ml Urine Color Yellow Urine Appearance Clear (Clear) Urine pH 5.5 (4.5-7.5) Ur Specific Fries 1.014 (1.000-1.030) Urine Protein Negative (Negative) Urine Glucose (UA) Negative (Negative) Urine Ketones Negative (Negative) Urine Blood Negative (Negative) Urine Nitrite Negative (Negative) Urine Bilirubin Negative (Negative) Urine Urobilinogen Negative (Negative) Ur Leukocyte Esterase Negative (Negative) SARS-CoV-2, RNA, NAAT (NEGATIVE) Blood Type O Positive Antibody Screen NEGATIVE Administered Medications Apixaban (Apixaban 2.5 Mg Tab) 2.5 mg PO BID KAREN Stop: 08/16/22 08:59 Last Admin: 07/17/22 08:54 Dose: 2.5 mg Documented By: ESHA Ascorbic Acid (Ascorbic Acid 500 Mg Tab) [facility] [place]: 08/16/22 08:59 Last Admin: 07/17/22 08:53 Dose: 1,000 mg Documented By: ESHA Carvedilol (Carvedilol 3.125 Mg Tab) 3.125 mg PO BID [facility] Stop: 08/16/22 08:59 Last Admin: 07/17/22 08:54 Dose: 3.125 mg Documented By: ESHA Cyanocobalamin (Cyanocobalamin (B-12) 2,500 Mcg Tablet) 2,500 mcg SL [facility] Stop: 08/16/22 08:59 Last Admin: 07/17/22 08:53 Dose: 2,500 mcg Documented By: ESHA Ezetimibe (Ezetimibe 10 Mg Tablet) 10 mg PO [facility] Stop: 08/16/22 08:59 Last Admin: 07/17/22 08:53 Dose: 10 mg Documented By: ESHA Folic Acid (Folic Acid 400 Mcg Tab) 400 [facility]cg [facility] [place] Stop: 08/16/22 08:59 Last Admin: 07/17/22 08:53 Dose: 400 mcg Documented By: ESHA Hydralazine HCl (Hydralazine Hcl 25 Mg Tab) 25 mg PO BID [facility] Stop: 08/16/22 08:59 Last Admin: 07/17/22 08:53 Dose: 25 mg Documented By: ESHA Sodium Chloride (Nss 1000ml) 1,000 mls @ 80 mls/hr IV .[id number] [facility] Stop: 07/18/22 00:44 Last Admin: 07/17/22 12:22 Dose: 80 mls/hr Documented By: ESHA Misbudaneous (Order Awaiting Action: Dutasteride 0.5 Mg Capsule) 1 each N/A QS [facility] Stop: 08/16/22 07:59 Last Admin: 07/17/22 16:24 Dose: Not Given Documented By: Admin: 07/17/22 08:56 Dose: Not Given Documented By: ESHA Miscellaneous (Order Awaiting Action: Ferric Citrate [Auryxia] 210 Mg Iron Tablet) 1 each N/A QS [facility] Stop: 08/16/22 07:59 Last Admin: 07/17/22 16:24 Dose: Not Given Documented By: Admin: 07/17/22 08:56 Dose: Not Given Documented By: ESHA Rosuvastatin Calcium (Rosuvastatin Calcium 5 Mg Tab) 5 [facility] [place] Stop: 08/16/22 08:59 Last Admin: 07/17/22 08:53 Dose: 5 mg Documented By: ESHA Tamsulosin HCl (Tamsulosin Hcl 0.4 Mg Cap) 0.8 mg [facility] [place] Stop: 08/16/22 08:59 Last Admin: 07/17/22 08:53 Dose: 0.8 mg Documented By: ESHA Vitamin D (Cholecalciferol 1,000 Units 25 Mcg Tab) 2,000 units PO [facility] Stop: 08/16/22 08:59 Last Admin: 07/17/22 08:54 Dose: 2,000 units Documented By: ESHA Zinc Sulfate (Zinc Sulfate 220 Mg Capsule) 220 mg [facility] [place] Stop: 08/16/22 08:59 Last Admin: 07/17/22 08:53 Dose: 220 mg Documented By: ESHA Discontinued Medications Sodium Chloride (Nss) 500 mls @ 999 mls/hr IV .Q31M ONE Stop: 07/16/22 19:19 Last Infusion: 07/16/22 19:57 Dose: 0 mls/hr Documented By: Admin: 07/16/22 18:55 Dose: 999 mls/hr Documented By: ADRIANA Sodium Chloride (Nss 1000ml) 1,000 mls @ 50 mls/hr IV .Q20H KAREN Stop: 08/16/22 03:02 Last Infusion: 07/17/22 19:13 Dose: 0 mls/hr Documented By: Infusion: 07/17/22 19:09 Dose: 0 mls/hr Documented By: Admin: 07/17/22 03:41 Dose: 50 mls/hr Documented By: SUZAN Potassium Chloride (Potassium Chloride 20 Meq/15 Ml Udc) 40 meq PO NOW STA Stop: 07/17/22 03:04 Last Admin: 07/17/22 03:41 Dose: 40 meq Documented By: SUZAN Imaging Data Radiologist's Impression: Chest X-Ray 07/16/22 18:30 XR chest 1V portable HISTORY: 87 years-old Male Weakness acute weakness COMPARISON: Chest radiograph an chest CT 07/01/2022 TECHNIQUE: AP view of the chest FINDINGS: Cardiac silhouette is enlarged. Prior median sternotomy. Pulmonary vascular congestion with interstitial coarsening. Trace left and moderate right pleural e ffusions with right greater left bibasilar opacities. The left pleural effusion has mildly decreased in size. Degenerative changes of the shoulders and spine with associated rotator cuff calcific tendinosis. IMPRESSION: 1. Cardiomegaly with unchanged pulmonary edema. 2. Trace left and moderate right pleural effusions with persistent bibasilar densities favoring atelectasis. ACT 112: Negative or not required by law. The above report was generated using voice recognition software. It may contain grammatical, syntax or spelling errors. Electronically signed by: Manfred Wilder M.D. 07/17/2022 7:25 AM Discharge Plan Visit Data Chief Complaint: Illness Stated Complaint: MEMORY LOSS,WEAKNESS,UNABLE TO STAND ED Provider: Fritz Aguayo Discharge Problem: Generalized weakness, CKD (chronic kidney disease), Hyponatremia, Dehydration, Adult failure to thrive, Hypokalemia Patient Disposition: Admitted As Inpatient Discharge Instructions Interventions: ED Discharge Assessment Last Done: 07/17/22 01:42
[2022-07-16 21:26] LABS: Appearance Urine Clear (Clear); Bilirubin Urine Negative (Negative); Blood Urine Negative (Negative); Color Urine Yellow; Glucose Urine UA Negative (Negative); Ketones Urine Negative (Negative); Leukocyte Esterase Urine Negative (Negative); Nitrite Urine Negative (Negative); Protein Urine Negative (Negative); Specific Gravity Urine 1.014 (1.000-1.030); Urobilinogen Urine Negative (Negative); pH Urine 5.5 (4.5-7.5)
--- NOTE | 2022-07-17 02:46 | History and Physical Report ---
DATE OF ADMISSION: 07/17/2022 CHIEF COMPLAINT: Weakness. HISTORY OF PRESENT ILLNESS: This is an 87-year-old male with past medical history significant for CAD, status post CABG in 1995, chronic diastolic and systolic heart failure, hypertension, hyperlipidemia, peripheral artery disease, carotid artery disease, status post endarterectomy, anemia of chronic kidney disease and chronic kidney disease stage III, who was recently in the hospital with weakness, COVID, DILIP, seen by [facility] , baseline creatinine seems 2.6 as per nephrology. Presents because of weakness and dehydration. The patient is very hard of hearing. No family in the room HAve to write on the paper. Denies any chest pain, denies any headache or abdominal pain, no nausea. His cough is improved. No fever, no diarrhea or constipation. Normal bladder movements. No swelling in the legs. He says he ambulates okay, sleeping okay. He is hemodynamically stable. Seems poor oral intake since discharge from here. Home physical therapy recommended the patient would benefit from longterm care, which is still pending availability. That is the reason, the patient was brought into the hospital and initially his blood pressure was low 70_/50, improved upon arriving into the room as per the ER notes and improved with gentle IV fluids. There was questionable black stools, but his Hemoccult was negative in the ER. His COVID rapid test is negative. Last admission, COVID positive on 07/01/22. ALLERGIES: CARDURA, LASIX, HYDROCHLOROTHIAZIDE, POTASSIUM CHLORIDE, CLONIDINE, KETOROLAC, LISINOPRIL. PAST MEDICAL HISTORY: As mentioned above. PAST SURGICAL HISTORY: History of endarterectomy, history of lithotripsy, history of CABG, history of colonoscopy with polypectomy, status post left total knee arthroplasty. FAMILY HISTORY: Significant for diabetes and kidney disease. SOCIAL HISTORY: No smoking. Very hard of hearing. No alcohol, no drug use. REVIEW OF SYSTEMS: As per HPI. Could not get complete review of systems, the patient is very hard of hearing have to write on paper. MEDICATIONS: Tylenol 1000 mg p.o. q. 6 hours p.r.n., ascorbic acid 1 gram p.o. daily, auryvia 210mg p.o. bid,, Bumex 1 mg p.o. a.m., Coreg 3.125 mg p.o. b.i.d., Plavix 75 mg p.o. daily, vitamin D 150 mg p.o. daily, vitamin B12 500 mcg sublingual q.a.m., darbepoetin as directed, dutasteride 0.5 mg p.o. daily, ezetimibe 10 mg p.o. a.m., folic acid 500 mg p.o. a.m., hydralazine 12.5 mg p.o. b.i.d., magnesium oxide 400 mg p.o. a.m., metolazone 5 mg 2 times a week, nitroglycerin 0.4 mg sublingual p.r.n., omega-3 fatty acid 2 grams p.o. b.i.d., lovastatin 5 mg p.o. a.m., spironolactone 12.5 mg p.o. a.m., Flomax 0.4 mg daily, triamcinolone prn zinc 50 mg p.o. daily. PHYSICAL EXAMINATION: GENERAL: The patient is alert and awake. Very hard of hearing, seems comfortable. VITAL SIGNS: Temperature 37.2, pulse 61, respiratory rate 22, blood pressure 131/68, oxygen 97% on room air. HEENT: Pupils equal, round and reactive to light. Oral mucosa moist. NECK: No JVD, no neck masses. CARDIOVASCULAR: S1 and S2 heard. Regular rate and rhythm. No murmur, no gallop. RESPIRATORY SYSTEM: Normal AP diameter. No accessory muscle use. No wheezing or crackles. ABDOMEN: Soft, bowel sounds present, nontender, no distention. CENTRAL NERVOUS SYSTEM: Alert and awake. Obeys simple commands. No facial droop. Speech is clear. Very hard of hearing. Moves extremities. EXTREMITIES: Chronic skin changes seen. No edema seen. LABORATORY DATA: WBC 9.8, hemoglobin 11.4, hematocrit 35.2, platelets 297. Sodium 128, potassium 3.2, chloride 85, CO2 32, BUN 112, creatinine 2.3, serum glucose 184, lactate was 2.2 when she came in, repeat is 1.5, calcium 9.7, phosphorus 2.6, magnesium 2.7, total bilirubin 0.9, direct bilirubin 0.1, AST 19, ALT 16, alkaline phosphatase 90. Troponin I high sensitivity 100. Lipase 64. TSH is 1.7. Urinalysis negative. SARS-CoV-2 rapid test negative. IMAGING DATA: CT of the head, no acute findings, encephalomalacia in the right [employer]END[employer] FEEDER territory consistent with old infarct. CT of abdomen and pelvis without contrast, diverticulosis without acute diverticulitis. No small bowel obstruction, no free intraperitoneal air. Small right pleural effusion, cholelithiasis, nonobstructive 5 mm right lower lobe renal calculus. Chest x- ray, no acute findings. EKG: Sinus rhythm with frequent PVCs, rate of 61, left ventricular hypertrophy. ASSESSMENT AND PLAN: This is an 87-year-old male who was recently in the hospital with COVID and acute kidney injury, was brought in because of weakness and possible dehydration, poor oral intake 1. Weakness and poor oral intake. We will monitor in the hospital. Gentle fluids. PT, OT. environmental services aide for possible placement. 2. Hyponatremia. Holding his home diuretics. Getting gentle fluids. We will follow the repeat labs in the a.m.Consult nephrology 3. Hypokalemia: Will replace. Follow the repeat labs in the a.m. 4. Chronic kidney disease, stage III. Current creatinine of 2.3, seems at his baseline. Getting gentle fluids. Holding diuretics for now. Monitor for any volume overload. Consult nephrology in the a.m. 5. CAD status post CABG. On Coreg, Plavix, ezetimibe and statin. We will monitor. 6. Benign prostatic hyperplasia. On Flomax and dutasteride 7. Anemia of chronic kidney disease. We will follow the labs. 8. Chronic systolic and diastolic CHF. Holding the diuretics, getting gentle fluids, monitor for any volume overload. 9. Hypertension. Was hypotensive when he came in. Got gentle fluids and improved. Holding his bumex and spironolactone. Continue his Coreg with holding parameters and hydralazine with holding parameters. 10. Deep venous thrombosis prophylaxis: Placed on heparin subcutaneous. DISPOSITION: Closely monitor in the medical floor. PT, OT prior to discharge. Social service to help with discharge planning. Level 1 full code. Job ID: [id number] MTDD
[2022-07-17] MEDS ORDERED: MENTHOL-ZINC OXIDE 360 APPLN/120 GM TUBE EXT PRN (03:03)
[2022-07-17] MEDS ORDERED: POTASSIUM CHLORIDE 20 MEQ/15 ML UDC PO STA (03:03)
[2022-07-17] MEDS ORDERED: SODIUM CHLORIDE 0.9% 1000ML 1,000 ML IV SCH ×2 (03:03→12:15)
[2022-07-17] MEDS ORDERED: NITROGLYCERIN SL 0.4 MG/TAB TAB SL PRN (03:03)
[2022-07-17] MEDS ORDERED: TRIAMCINOLONE ACET 0.1% CR 15 GM TUBE TOP PRN (03:03)
[2022-07-17 07:19] LABS: Basophils # (auto) 0.03 K/uL (0-0.2); Basophils % (auto) 0.4 %; Eosinophils # (auto) 0.31 K/uL (0-0.50); Eosinophils % (auto) 3.7 %; Hematocrit (blood only) 33.3 % (42.0-52.0); Hemoglobin 10.7 g/dl (14.0-18.0); Immature Granulocytes # (auto) 0.05 K/uL (0.01-0.20); Immature Granulocytes % (auto) 0.6 %; Lymphocytes # (auto) 0.55 K/uL (1.2-3.4); Lymphocytes % (auto) 6.5 %; Mean Corpuscular Hemoglobin 26.6 pg (25.0-34.0); Mean Corpuscular Hgb Conc 32.1 g/dL (32.0-36.0); Mean Corpuscular Volume 82.6 fL (80.0-100.0); Mean Platelet Volume 9.9 fL (9.4-12.4); Monocytes # (auto) 0.72 K/uL (0.11-0.59); Monocytes % (auto) 8.5 %; Neutrophils # (auto) 6.78 K/uL (1.40-6.50); Neutrophils % (auto) 80.3 %; Platelet Count 267 K/uL (130-400); RDW Coefficient of Variation 19.4 % (11.5-14.5); RDW Standard Deviation 58.8 fL (36.4-46.3); Red Blood Count 4.03 M/uL (4.70-6.10); White Blood Count 8.44 K/ul (4.8-10.8)
--- NOTE | 2022-07-17 07:26 | XRay Report ---
XR chest 1V portable HISTORY: 87 years-old Male Weakness acute weakness COMPARISON: Chest radiograph an chest CT 07/01/2022 TECHNIQUE: AP view of the chest FINDINGS: Cardiac silhouette is enlarged. Prior median sternotomy. Pulmonary vascular congestion with interstit ial coarsening. Trace left and moderate right pleural effusions with right greater left bibasilar opa cities. The left pleural effusion has mildly decreased in size. Degenerative changes of the shoulders and spine with associated rotator cuff calcific tendinosis. IMPRESSION: 1. Cardiomegaly with unchanged pulmonary edema. 2. Trace left and moderate right pleural effusions with persistent bibasilar densities favoring atele ctasis. ACT 112: Negative or not required by law. The above report was generated using voice recognition software. It may contain grammatical, syntax o r spelling errors. Electronically signed by: Manfred Wilder M.D. 07/17/2022 7:25 AM
[2022-07-17 07:43] LABS: BUN Creatinine Ratio 51.5 (10-20); Creatinine Clr Calc Pharmacy 24.6 ml/min; Est GFR (African American) 35.3 ml/min; Est GFR (Non-African American) 30.5 ml/min; Magnesium 2.6 mg/dl (1.7-2.4); Potassium 3.9 mmol/L (3.5-5.1)
[2022-07-17] MEDS: ZINC SULFATE 220 MG CAPSULE PO SCH (08:53)
[2022-07-17] MEDS: TAMSULOSIN HCL 0.4 MG CAP PO SCH (08:53)
[2022-07-17] MEDS: hydrALAZINE HCL 25 MG TAB PO SCH ×2 (08:53→20:22)
[2022-07-17] MEDS: FOLIC ACID 400 MCG TAB PO SCH (08:53)
[2022-07-17] MEDS: EZETIMIBE 10 MG TABLET PO SCH (08:53)
[2022-07-17] MEDS: ASCORBIC ACID 500 MG TAB PO SCH (08:53)
[2022-07-17] MEDS: ROSUVASTATIN CALCIUM 5 MG TAB PO SCH (08:53)
[2022-07-17] MEDS: CYANOCOBALAMIN (B-12) 2,500 MCG TABLET SL SCH (08:53)
[2022-07-17] MEDS: carvediloL 3.125 MG TAB PO SCH ×2 (08:54→20:22)
[2022-07-17] MEDS: APIXABAN 2.5 MG TAB PO SCH ×2 (08:54→20:22)
[2022-07-17] MEDS: CHOLECALCIFEROL 1,000 UNITS 25 MCG TAB PO SCH (08:54)
[2022-07-17 09:34] LABS: Troponin I High Sensitivity 83.7 pg/ml (0-20)
--- NOTE | 2022-07-17 09:48 | Nephrology Consultation ---
Date of Consultation July 17, 2022 Assessment & Plan (1) Hyponatremia: * Clinically volume contracted * Na trending up, BUN and Cr are improved following gentle hydration * Continue to hold Bumex, Metolazone. Continue gentle hydration w/ O.9NS * Monitor serum Na (2) Chronic diastolic (congestive) heart failure: * 07/19 Echo shows combined systolic/diastolic heart failure: LVEF 40-45%, severe pulmonary HTN w/ PASP 65-75 mmHg (3) Chronic kidney disease, stage 4 (severe): * CKD stage G4/A1 (advanced impairment). Baseline Cr has been 2.6 w/ EGFR 20 cc/min. Urine sediment has been acellular. 09/17 renal US - R 11.1cm with 1.1 cm lower pole stone, L 12.7cm. Renal impairment is due to microvascular disease * Patient has indicated that he does not want dialysis if his renal function worsens due to advanced age and frail health History of Present Illness Reason for Consultation: Hyponatremia Attending Physician: Eric Pascal MD History of Present Illness Mr. Ang is an 87 year old male who is seen at the request of the [facility] hospitalist group for evaluation of hyponatremia. Patient is extremely RUBY and cannot provide details of his medical history. Information for the HPI is obtained from the EMR and is summarized as follows: Mr. Ang has CKD stage G4/A1 (advanced impairment). Baseline Cr has been 2.6 w/ EGFR 20 cc/min. Urine sediment has been acellular. 09/17 renal US - R 11.1cm with 1.1 cm lower pole stone, L 12.7cm. Primary Gourmet Coffee Attendant is Dr. Alfaro. Renal impairment is due to microvascular disease. Patient has indicated that he does not want dialysis if his renal function worsens due to advanced age and frail health. Mr. Ang was last admitted to [facility] 07/01/22-07/08/22 due to COVID infection, CHF and DILIP. Since discharge he has been on Bumex 1 mg daily and Metolazone 5 mg twice weekly. His respiratory status has been stable but Mr. Ang has become progressively weaker. Upon presentation to [facility] EMD early this am, patient was noted to be dehydrated w/ SBP 70's. IV hydration w/ NS was provided. Admission labs revealed Na 128, BUN 112, Cr 2.35. PMH: ASCVD s/p CABG in 1995, diastolic CHF (07/01/22 Echocardiogram: LVEF 40- 45%, severe pulmonary HTN w/ PASP 65-75 mmHg), carotid stenosis s/p R CEA, HTN, hyperlipidemia Allergies Allergy/AdvReac Type Severity Reaction Status Date / Time doxazosin [From Cardura] Allergy Intermediate HIVES and Verified 06/26/22 09:45 ITCHING furosemide [From Lasix] Allergy Intermediate HIVES and Verified 06/26/22 09:45 ITCHING hydrochlorothiazide Allergy Intermediate ITCHING Verified 06/26/22 09:45 potassium chloride Allergy Intermediate HIVES and Verified 06/26/22 09:45 ITCHING clonidine Allergy Unknown Unknown Verified 06/26/22 09:45 ketorolac [From Toradol] AdvReac Severe ACUTE Verified 06/26/22 09:45 KIDNEY INJURY lisinopril AdvReac Intermediate COUGH Verified 06/26/22 09:45 Home Medications Medication Instructions Recorded Confirmed Type nitroglycerin 0.4 mg sublingual 0.4 mg sublingual Q5M PRN chest 11/24/20 07/16/22 Rx tablet (Nitrostat) pain #1 tab triamcinolone acetonide 0.1 % 1 applic topical TID PRN itching 11/24/20 07/16/22 Rx topical cream #15 grams zinc 50 mg tablet 50 mg PO QAM 12/06/20 07/16/22 History folic acid 400 mcg tablet 400 mcg PO QAM #30 tabs 08/31/21 07/16/22 Rx menthol 0.44 %-zinc oxide 20.6 % 1 applic topical TID PRN skin 09/05/21 07/16/22 Rx topical ointment (Calmoseptine) irritation #113 grams cholecalciferol (vitamin D3) 50 50 mcg PO QAM 09/25/21 07/16/22 History mcg (2,000 unit) tablet (Vitamin D3) darbepoetin lizzy in polysorbat 60 60 mcg subcut .COMPLEX #1 mL 10/03/21 07/16/22 Rx mcg/mL in polysorbate injection (Aranesp) omega-3 fatty acids 1,000 mg 2,000 mg PO AMPM 11/28/21 07/16/22 History capsule acetaminophen 500 mg tablet 1,000 mg PO Q6H PRN Fever Or Pain 07/16/22 07/16/22 History (Tylenol Extra Strength) ascorbic acid (vitamin C) 1,000 mg 1 g PO QAM 07/16/22 07/16/22 History tablet bumetanide 1 mg tablet 1 mg PO QAM 07/16/22 07/16/22 History carvedilol 3.125 mg tablet 3.125 mg PO AMPM 07/16/22 07/16/22 History clopidogrel 75 mg tablet 75 mg PO QPM 07/16/22 07/16/22 History cyanocobalamin (vitamin B-12) 2,500 mcg sublingual QAM 07/16/22 07/16/22 History 2,500 mcg sublingual tablet (Vitamin B-12) dutasteride 0.5 mg capsule 0.5 mg PO QAM 07/16/22 07/16/22 History ezetimibe 10 mg tablet 10 mg PO QAM 07/16/22 07/16/22 History ferric citrate 210 mg iron tablet 210 mg PO AMPM 07/16/22 07/16/22 History (Auryxia) hydralazine 25 mg tablet 25 mg PO AMPM 07/16/22 07/16/22 History magnesium oxide 400 mg PO QAM 07/16/22 07/16/22 History metolazone 5 mg tablet 5 mg PO 2XWK 07/16/22 07/16/22 History rosuvastatin 5 mg tablet 5 mg PO QAM 07/16/22 07/16/22 History spironolactone 25 mg tablet 12.5 mg PO QAM 07/16/22 07/16/22 History tamsulosin 0.4 mg capsule 0.8 mg PO QAM 07/16/22 07/16/22 History Patient History Medical History Carotid stenosis Diastolic CHF, chronic DVT prophylaxis Hearing loss Hematuria HTN (hypertension) Hyperlipidemia Nephrolithiasis Osteoarthritis PAD (peripheral artery disease) Surgical History H/O endarterectomy H/O lithotripsy Hx of CABG S/P colonoscopic polypectomy S/P total knee arthroplasty left Family History Denies family history of Diabetes Kidney disease Social History Smoking Status: Never smoker Do You Dip or Chew Tobacco: No; Hx Alcohol Use: No Hx Substance Use: No Preferred Language: Bahamian Communication Ability: Effective Hearing Ability: Hard of Hearing Intermediate Designer Required: No Beliefs That Will Affect Care: None Current Living Situation: Alone current occupational status: retired Other Information That Helps Us Care for You: No Feels Safe at Home: Yes Safety Concerns: Feels Safe At This Time Assistive Devices: Cane, Denture - Upper, Denture - Lower, Glasses and Hearing Aid - Right Review of Systems Constitutional: no fever Eyes: no problem reported Ear, Nose, Mouth, Throat: no problem reported Respiratory: no cough and no dyspnea Cardiovascular: no chest pain Gastrointestinal: no abdominal pain Genitourinary: no urinary hesitancy or no hematuria Neurologic: + generalized weakness Physical Exam Constitutional: + frail appearing; + not appropriately hydrated Eyes: PERRL, conjunctivae normal, anicteric sclerae ENMT: Mouth: + dry oral mucous membranes Neck: trachea midline, no thyromegaly Respiratory: normal respiratory effort, lungs clear to auscultation Cardiovascular: Rate/Rhythm: regular rate and regular rhythm Heart Sounds: + murmur Extremities: no pedal edema Gastrointestinal (Abdomen): normal bowel sounds, soft, nontender, no hepat osplenomegaly Skin: + turgor decreased Neurologic: awake; not confused Cranial Nerves: + hearing impairment Results & Data Vital Signs (Past 12 Hours) Vital Signs Temp Pulse Resp BP BP Pulse Ox O2 Del Method 07/17/22 09:14 Room Air 07/17/22 07:14 36.3 C L 69 15 119/63 99 Room Air 07/17/22 02:25 Room Air 07/17/22 03:18 36.4 C L 78 18 120/64 98 Room Air 07/17/22 01:30 96 07/17/22 01:00 115/73 95 07/17/22 00:30 97 07/17/22 00:00 128/75 96 07/16/22 23:30 97 07/16/22 23:00 98 07/16/22 23:00 129/65 07/16/22 22:30 92 07/16/22 22:30 124/45 L 07/16/22 22:00 97 Laboratory Results Laboratory Tests 12/12/21 03/20/22 07/01/22 00:00 00:00 12:25 WBC Hgb Hct Plt Count Sodium 138 137 Potassium Chloride Carbon Dioxide BUN Creatinine Glucose Calcium Magnesium Urine Color Urine Appearance Urine pH Ur Specific [place] Urine Protein Urine Glucose (UA) Urine Ketones Urine Blood Urine Nitrite Urine Bilirubin Urine Urobilinogen SARS-CoV-2 (PCR) POSITIVE A* SARS-CoV-2, RNA, NAAT 07/02/22 07/05/22 07/08/22 07:12 06:57 08:51 WBC Hgb Hct Plt Count Sodium 135 L 130 L 129 L Potassium Chloride Carbon Dioxide BUN Creatinine Glucose Calcium Magnesium Urine Color Urine Appearance Urine pH Ur Specific [place] Urine Protein Urine Glucose (UA) Urine Ketones Urine Blood Urine Nitrite Urine Bilirubin Urine Urobilinogen SARS-CoV-2 (PCR) SARS-CoV-2, RNA, NAAT 07/16/22 07/16/22 07/16/22 15:46 19:15 20:39 WBC Hgb Hct Plt Count Sodium 128 L Potassium Chloride Carbon Dioxide BUN Creatinine Glucose Calcium Magnesium Urine Color Yellow Urine Appearance Clear Urine pH 5.5 Ur Specific [place] 1.014 Urine Protein Negative Urine Glucose (UA) Negative Urine Ketones Negative Urine Blood Negative Urine Nitrite Negative Urine Bilirubin Negative Urine Urobilinogen Negative SARS-CoV-2 (PCR) SARS-CoV-2, RNA, NAAT NEGATIVE 07/17/22 07/17/22 07:02 07:02 WBC 8.44 Hgb 10.7 L Hct 33.3 L Plt Count 267 Sodium 132 L Potassium 3.9 D Chloride 92 L Carbon Dioxide 32 BUN 100 H Creatinine 1.94 H D Glucose 112 H Calcium 9.0 Magnesium 2.6 H Urine Color Urine Appearance Urine pH Ur Specific [place] Urine Protein Urine Glucose (UA) Urine Ketones Urine Blood Urine Nitrite Urine Bilirubin Urine Urobilinogen SARS-CoV-2 (PCR) SARS-CoV-2, RNA, NAAT Diagnostic Findings 07/16/22 CXR: 1. Cardiomegaly with unchanged pulmonary edema. 2. Trace left and moderate right pleural effusions with persistent bibasilar densities favoring atelectasis. 07/16/[address]: 1. Diverticulosis, without acute diverticulitis. No small bowel obstruction. No free intraperitoneal air. 2. Small right pleural effusion. 3. Cholelithiasis. 4. Nonobstructing 5 mm right lower pole renal calculus. 07/16/[address]: No acute intracranial hemorrhage, midline shift, or mass effect. Encephalomalacia in the right TURBO GENERATOR OILER territory, consistent with old infarct. 07/01/22 Echocardiogram: LVEF 40-45%, mild LVH, mild MR, small pleural effusion, severe pulmonary HTN w/ PASP 65-75 mm Hg, diastolic dysfunction c/w markedly increase L atrial pressure PG Care Time/CCT Total # of Minutes Spent Total Time Spent with Patient: Total time spent is greater than 50% in coordination of care (as documented) at patient's floor/unit and/or counseling patient: Coding Level of Care Code 85544 IN/OBS CONSULT LVL 5,80M Diagnoses Hyponatremia E87.1 Chronic diastolic (congestive) heart failure I50.32 Chronic kidney disease, stage 4 (severe) N18.4
--- NOTE | 2022-07-17 10:51 | Electrocardiogram Report ---
Test Reason : Blood Pressure : / mmHG Vent. Rate : 061 BPM Atrial Rate : 061 BPM P-R Int : 202 ms QRS Dur : 100 ms QT Int : 430 ms P-R-T Axes : 006 -17 159 degrees QTc Int : 432 ms Sinus rhythm with frequent Premature ventricular complexes 1st degree AV block Possible Left atrial enlargement Left ventricular hypertrophy with repolarization abnormality Abnormal ECG When compared with ECG of 03-JUL-2022 05:59, Premature ventricular complexes are now Present UT interval has decreased ST less depressed in Lateral leads QT has shortened Confirmed by Deven Camargo ([id number]) on 07/17/2022 10:51:54 AM Referred By: REFERRED SELF Confirmed By:Swapnil Camargo
--- NOTE | 2022-07-17 13:58 | Hospitalist Progress Note ---
Date of Service July 17, 2022 Assessment & Plan (1) Generalized muscle weakness: (2) Hyponatremia: (3) Hypokalemia: (4) Chronic diastolic (congestive) heart failure: (5) Coronary artery disease: Plan This is an 87-year-old male who has significant past medical history of CAD status post CABG in 1995, chronic diastolic and systolic heart failure, HTN, HLD, PAD, carotid artery disease status post endarterectomy, anemia of chronic disease, CKD stage IV who was admitted to hospital secondary to generalized weakness, poor p.o. intake and hyponatremia. Of significance patient was recently hospitalized secondary to COVID-19, generalized weakness and DILIP. He has baseline creatinine of 2.6. Intake has been poor since most recent discharge. Home physical therapy recommended the patient would benefit from retirement care which is still pending availability. In ED patient was hypotensive which improved with IV fluids. Patient hospitalized 07/01 to 07/08 secondary to generalized weakness, COVID-19 positive and DILIP. Since discharge has had generalized poor p.o. intake and therefore he presented back to hospital secondary to generalized weakness and hypotension. 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 Hypokalemia This was repleted and has normalized Anemia of chronic disease H&H stable at 10.7 and 33.3 CAD with history of CABG HTN Compensated Chronic systolic and diastolic heart failure -Echo from 07/19 reveals LVEF 40 to 45%, severe pulmonary hypertension with PASP of 65 to 75 mmHg Elevated troponin Continue Coreg, hydralazine, Plavix, statin and Zetia elevated trop likely in setting of ckd as well as initial hypotension Hypermagnesemia mag oxide - home med, d/c due to elevated mag levels may be in setting of dehydration, will monitor DVT ppx: SQ heparin Dispo: admitted to medical, not yet medically stable for d/c, may need skilled rehab FULL CODE PCP: Panchito Anguiano Pt was admitted after 00:00 on 07/17/22 therefore this is not a billable service Pt was seen and collaborated with Dr. Pascal, please see addendum Admission and Anticipated Discharge Date Admission Date: July 17, 2022 Supervising Physician Co-Signing Physician Notes Patient seen and examined independently. Plan of care discussed with the above provider Patient is a 87-year-old male with multiple comorbid condition who presents to the hospital with poor oral intake and hyponatremia. Nephrology on board; recommend gentle hydration. Holding diuretics. PT OT eval; patient might need rehab placement. Subjective Patient was seen and examined in room 375-1. Follow up DILIP, weakness, poor intake. Pt is lying in bed w/o acute concern. "I wish someone would let me sleep." He denies pain, f/c/s, chest pain, sob, n/v/d. Review of Systems Review of Systems: All systems reviewed & are unremarkable except as noted in HPI & below Physical Exam Physical Exam: Gen: WD/WN, hard of hearing, NAD, A&O x3, lying in bed, HEENT: Normocephalic, atraumatic, conjunctivae moist, sclerae anicteric, mucous membranes moist. Lung: Clear to Auscultation bilaterally, no wheezes/rales/rhonchi Heart: Regular rate, regular rhythm, no murmurs, rubs, or gallops Abdomen: Soft, NT, ND +BS x 4 Extremities: No edema Skin: Warm, no rash, negative turgor. Results & Data Results & Data Vital Signs (Past 12 Hours) Vital Signs Temp Pulse Resp BP Pulse Ox O2 Del Method 07/17/22 11:18 36.4 C L 68 15 119/64 97 Room Air 07/17/22 09:14 Room Air 07/17/22 07:14 36.3 C L 69 15 119/63 99 Room Air 07/17/22 02:25 Room Air 07/17/22 03:18 36.4 C L 78 18 120/64 98 Room Air Laboratory Results Short CBC 07/16/22 07/17/22 Range/Units 15:46 07:02 WBC 9.88 8.44 (4.8-10.8) K/ul Hgb 11.4 L 10.7 L (14.0-18.0) g/dl Hct 35.2 L 33.3 L (42.0-52.0) % Plt Count 297 267 (130-400) K/uL BMP 07/16/22 07/17/22 15:46 07:02 Sodium 128 L 132 L Potassium 3.2 L 3.9 D Chloride 85 L 92 L Carbon Dioxide 32 32 BUN 112 H 100 H Creatinine 2.35 H 1.94 H D Glucose 184 H 112 H Calcium 9.7 9.0 Liver Function 07/16/22 07/16/22 Range/Units 15:46 19:07 Total Bilirubin 0.9 (0.2-1.0) mg/dl Direct Bilirubin 0.4 H Cancelled (0-0.2) mg/dl AST 19 (13-39) U/L ALT 16 (7-52) U/L Alkaline Phosphatase 98 (34-104) U/L Albumin 3.5 (3.4-5.0) gm/dl Urine 07/16/22 Range/Units 20:39 Urine Color Yellow Urine Appearance Clear (Clear) Urine pH 5.5 (4.5-7.5) Ur Specific [place] 1.014 (1.000-1.030) Urine Protein Negative (Negative) Urine Glucose (UA) Negative (Negative) Medications Administered Current Inpatient Medications Acetaminophen (Acetaminophen 325 Mg Tab) 650 mg PO Q4H PRN PRN Reason: pain/fever Stop: 08/16/22 03:02 Apixaban (Apixaban 2.5 Mg Tab) 2.5 mg PO BID [facility] Stop: 08/16/22 08:59 Last Admin: 07/17/22 08:54 Dose: 2.5 mg Ascorbic Acid (Ascorbic Acid 500 Mg Tab) 1,000 mg PO QAM [facility] Stop: 08/16/22 08:59 Last Admin: 07/17/22 08:53 Dose: 1,000 mg Calamine/Phenol (Menthol-Zinc Oxide 360 Appln/120 Gm Tube) 1 appln EXT TID PRN PRN Reason: skin irritation Stop: 08/16/22 03:02 Carvedilol (Carvedilol 3.125 Mg Tab) 3.125 mg PO BID [facility] Stop: 08/16/22 08:59 Last Admin: 07/17/22 08:54 Dose: 3.125 mg Clopidogrel Bisulfate (Clopidogrel Bisulfate 75 Mg Tab) 75 mg PO QPM [facility] Stop: 08/16/22 20:59 Cyanocobalamin (Cyanocobalamin (B-12) 2,500 Mcg Tablet) 2,500 mcg SL QAM [facility] Stop: 08/16/22 08:59 Last Admin: 07/17/22 08:53 Dose: 2,500 mcg Ezetimibe (Ezetimibe 10 Mg Tablet) 10 mg PO QAM [facility] Stop: 08/16/22 08:59 Last Admin: 07/17/22 08:53 Dose: 10 mg Folic Acid (Folic Acid 400 Mcg Tab) 400 mcg PO QAM [facility] Stop: 08/16/22 08:59 Last Admin: 07/17/22 08:53 Dose: 400 mcg Hydralazine HCl (Hydralazine Hcl 25 Mg Tab) 25 mg PO BID [facility] Stop: 08/16/22 08:59 Last Admin: 07/17/22 08:53 Dose: 25 mg Sodium Chloride (Nss 1000ml) 1,000 mls @ 50 mls/hr IV .Q20H [facility] Stop: 08/16/22 03:02 Last Admin: 07/17/22 03:41 Dose: 50 mls/hr Sodium Chloride (Nss 1000ml) 1,000 mls @ 80 mls/hr IV .[id number] [facility] Stop: 07/18/22 00:44 Last Admin: 07/17/22 12:22 Dose: 80 mls/hr Miscellaneous (Order Awaiting Action: Dutasteride 0.5 Mg Capsule) 1 each N/A QS [facility] Stop: 08/16/22 07:59 Last Admin: 07/17/22 08:56 Dose: Not Given Miscellaneous (Order Awaiting Action: Ferric Citrate [Auryxia] 210 Mg Iron Tablet) 1 each N/A QS [facility] Stop: 08/16/22 07:59 Last Admin: 07/17/22 08:56 Dose: Not Given Nitroglycerin (Nitroglycerin Sl 0.4 Mg/Tab Tab) 0.4 mg SL Q5M PRN PRN Reason: chest pain Stop: 08/16/22 03:02 Rosuvastatin Calcium (Rosuvastatin Calcium 5 Mg Tab) 5 mg PO QAM [facility] Stop: 08/16/22 08:59 Last Admin: 07/17/22 08:53 Dose: 5 mg Tamsulosin HCl (Tamsulosin Hcl 0.4 Mg Cap) 0.8 mg PO [facility] Stop: 08/16/22 08:59 Last Admin: 07/17/22 08:53 Dose: 0.8 mg Triamcinolone Acetonide (Triamcinolone Acet 0.1% Cr 15 Gm Tube) 1 appln TOP TID PRN PRN Reason: itching Stop: 08/16/22 03:02 Vitamin D (Cholecalciferol 1,000 Units 25 Mcg Tab) 2,000 units PO [facility] Stop: 08/16/22 08:59 Last Admin: 07/17/22 08:54 Dose: 2,000 units Zinc Sulfate (Zinc Sulfate 220 Mg Capsule) 220 mg PO [facility] Stop: 08/16/22 08:59 Last Admin: 07/17/22 08:53 Dose: 220 mg
[2022-07-17] MEDS ORDERED: POLYETHYLENE (MIRALAX) 17 GM PACK PO PRN (20:26)
[2022-07-17] MEDS: CLOPIDOGREL BISULFATE 75 MG TAB PO SCH (21:12)
[2022-07-17] MEDS: ACETAMINOPHEN 325 MG TAB PO PRN (22:58)
[2022-07-17] MEDS ORDERED: traMADol HCL 50 MG TABLET PO STA (23:58)
[2022-07-18] MEDS: LIDOCAINE 5% 1 PATCH TD SCH (05:24)
[2022-07-18] MEDS: ACETAMINOPHEN 325 MG TAB PO PRN ×2 (05:24→16:36)
[2022-07-18] MEDS: EZETIMIBE 10 MG TABLET PO SCH (08:36)
[2022-07-18] MEDS: TAMSULOSIN HCL 0.4 MG CAP PO SCH (08:36)
[2022-07-18] MEDS: carvediloL 3.125 MG TAB PO SCH ×2 (08:36→19:59)
[2022-07-18] MEDS: CHOLECALCIFEROL 1,000 UNITS 25 MCG TAB PO SCH (08:37)
[2022-07-18] MEDS: hydrALAZINE HCL 25 MG TAB PO SCH ×2 (08:37→19:58)
[2022-07-18] MEDS: FOLIC ACID 400 MCG TAB PO SCH (08:37)
[2022-07-18] MEDS: CYANOCOBALAMIN (B-12) 2,500 MCG TABLET SL SCH (08:37)
[2022-07-18] MEDS: ASCORBIC ACID 500 MG TAB PO SCH (08:37)
[2022-07-18] MEDS: APIXABAN 2.5 MG TAB PO SCH ×2 (08:37→20:00)
[2022-07-18] MEDS: ROSUVASTATIN CALCIUM 5 MG TAB PO SCH (08:37)
[2022-07-18] MEDS: ZINC SULFATE 220 MG CAPSULE PO SCH (08:37)
[2022-07-18 09:01] LABS: BUN Creatinine Ratio 45.9 (10-20); Creatinine Clr Calc Pharmacy 26.4 ml/min; Est GFR (African American) 38.4 ml/min; Est GFR (Non-African American) 33.1 ml/min; Magnesium 2.5 mg/dl (1.7-2.4); Potassium 3.8 mmol/L (3.5-5.1)
--- NOTE | 2022-07-18 09:02 | Nephrology Progress Note ---
Date of Service July 18, 2022 Assessment & Plan (1) Hyponatremia: Plan: * Patient remains clinically volume contracted - poor skin turgor, dry mucous membranes, no LE swelling * Na trending up, BUN and Cr are improved following gentle hydration * Continue to hold Bumex, Metolazone * Continue gentle hydration w/ O.9NS * Monitor serum Na (2) Chronic diastolic (congestive) heart failure: Plan: * 07/19 Echo shows combined systolic/diastolic heart failure: LVEF 40-45%, severe pulmonary HTN w/ PASP 65-75 mmHg (3) Chronic kidney disease, stage 4 (severe): Plan: * CKD stage G4/A1 (advanced impairment). Baseline Cr has been 2.6 w/ EGFR 20 cc/min. Urine sediment has been acellular. 09/17 renal US - R 11.1cm with 1.1 cm lower pole stone, L 12.7cm. Renal impairment is due to microvascular disease * Patient has indicated that he does not want dialysis if his renal function worsens due to advanced age and frail health Admission and Anticipated Discharge Date Admission Date: July 17, 2022 Subjective Mr. Ang was evaluated in his hospital room this morning. He remains extremely [place]. Mr. Ang indicated that he tolerated IV hydration without dyspnea. His RA SaO2 was 95%. He would like to go home Review of Systems Constitutional: no fever Eyes: no problem reported Ear, Nose, Mouth, Throat: no problem reported Respiratory: no cough and no dyspnea Cardiovascular: no chest pain Gastrointestinal: no abdominal pain Genitourinary: no urinary hesitancy or no hematuria Neurologic: + generalized weakness Physical Exam Constitutional: + frail appearing; + not appropriately hydrated Eyes: PERRL, conjunctivae normal, anicteric sclerae ENMT: Mouth: + dry oral mucous membranes Neck: trachea midline, no thyromegaly Respiratory: normal respiratory effort, lungs clear to auscultation Cardiovascular: Rate/Rhythm: regular rate and regular rhythm Heart Sounds: + murmur Extremities: no pedal edema Gastrointestinal (Abdomen): normal bowel sounds, soft, nontender, no hepatosplenomegaly Skin: + turgor decreased Neurologic: awake; not confused Cranial Nerves: + hearing impairment Results & Data Vital Signs (Past 12 Hours) Vital Signs Temp Pulse Resp BP Pulse Ox O2 Del Method 07/18/22 07:00 36.2 C L 64 16 126/64 95 Room Air Laboratory Results Laboratory Tests 07/02/22 07/16/22 07/17/22 01:14 15:46 07:02 Sodium Potassium Chloride Carbon Dioxide BUN Creatinine Glucose Calcium Magnesium Troponin I High Sens 573.9 H* D 100.1 H* 83.7 H* D Urine Osmolality 07/17/22 07/18/22 11:30 08:06 Sodium 132 L Potassium 3.8 Chloride 94 L Carbon Dioxide 29 BUN 83 H Creatinine 1.81 H Glucose 105 H Calcium 9.0 Magnesium 2.5 H Troponin I High Sens Urine Osmolality 456 L PG Care Time/CCT Total # of Minutes Spent Total Time Spent with Patient: Total time spent is greater than 50% in coordination of care (as documented) at patient's floor/unit and/or counseling patient: Coding Level of Care Code 18893 SUB INP/OBS CARE 3/50MIN Diagnoses Hyponatremia E87.1 Chronic diastolic (congestive) heart failure I50.32 Chronic kidney disease, stage 4 (severe) N18.4
--- NOTE | 2022-07-18 12:25 | Hospitalist Progress Note ---
Date of Service July 18, 2022 Assessment & Plan (1) Generalized muscle weakness: (2) Hyponatremia: (3) Hypokalemia: (4) Chronic diastolic (congestive) heart failure: (5) Coronary artery disease: Plan This is an 87-year-old male who has significant past medical history of CAD status post CABG in 1995, chronic diastolic and systolic heart failure, HTN, HLD, PAD, carotid artery disease status post endarterectomy, anemia of chronic disease, CKD stage IV who was admitted to hospital secondary to generalized weakness, poor p.o. intake and hyponatremia. Of significance patient was recently hospitalized secondary to COVID-19, generalized weakness and DILIP. He has baseline creatinine of 2.6. Intake has been poor since most recent discharge. Home physical therapy recommended the patient would benefit from [facility] care which is still pending availability. In ED patient was hypotensive which improved with IV fluids. Patient hospitalized 07/01 to 07/08 secondary to generalized weakness, COVID-19 positive and DILIP. Since discharge has had generalized poor p.o. intake and therefore he presented back to hospital secondary to generalized weakness and hypotension. 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 Hypokalemia This was repleted and has normalized Anemia of chronic disease H&H stable at 10.7 and 33.3 CAD with history of CABG HTN Compensated Chronic systolic and diastolic heart failure -Echo from 07/19 reveals LVEF 40 to 45%, severe pulmonary hypertension with PASP of 65 to 75 mmHg Elevated troponin Continue Coreg, hydralazine, Plavix, statin and Zetia elevated trop likely in setting of ckd as well as initial hypotension Hypermagnesemia mag oxide - home med, d/c due to elevated mag levels may be in setting of dehydration, will monitor DVT ppx: apixaban Dispo: admitted to medical, not yet medically stable for d/c, may need skilled rehab, discussed with CM pt is adamant about returning home; however unsafe, had discussion with patient at bedside but was adamant to return home FULL CODE PCP: Panchito Anguiano A total of 45 minutes was spent with greater than 50% of that time personally viewing all current laboratory work and diagnostic imaging studies obtained in the ED. Additionally, I was able to view the patients past medication reconciliation and history with direct visualization in the patients chart. Included in the time above, a portion of that time was spent assessing the patient while discussing and collaborating with specialists, if necessary, and making medical decision making on treatment plan. All of the above was collaborated with Dr. Shay. Please see addendum for further details. Admission and Anticipated Discharge Date Admission Date: July 17, 2022 Supervising Physician Co-Signing Physician Notes Attending Addendum: care coordinated with JESSI Matos please refer to her notes for full details, I agree with her notes patient seen and examined, records reviewed by myself as well on exam, patient sleeping but easily awakened Sitting up in bed Irritable Reports he still feels tired, also feeling stiff from not ambulating as much no other symptoms VS noted and reviewed orientedx2 , not in distress, speaks in sentences with no effort nor accessory muscle use normal rate, regular rhythm, no murmurs clear breath sounds bilaterally non distended, soft, nontender no bipedal edema, erythema, warmth no neuro deficits All labs noted and reviewed ASSESSMENT AND PLAN diagnoses and plan of care as per JESSI Kent'loree notes Juancho Shay MD Subjective Patient was seen and examined in room 375-1. Follow up DILIP, weakness, poor intake. Pt is lying in bed. He is very [place]. He does not wish to talk and just wants to, "get out of here." He denies rehab and states, "I can just take care of myself at home." He denies pain, f/c/s, chest pain, sob, n/v/d. Discussed with CM on 07/17 - pt admits to feel depressed and per family member there has been reports of wanting to self harm in the past but no formal plan Review of Systems Review of Systems: All systems reviewed & are unremarkable except as noted in HPI & below Physical Exam Physical Exam: Gen: WD/WN, hard of hearing, NAD, A&O x3, lying in bed, HEENT: Normocephalic, atraumatic, conjunctivae moist, sclerae anicteric, mucous membranes moist. Lung: Clear to Auscultation bilaterally, no wheezes/rales/rhonchi Heart: Regular rate, regular rhythm, no murmurs, rubs, or gallops Abdomen: Soft, NT, ND +BS x 4 Extremities: No edema. bl venous stasis changes, no warmth Skin: Warm, no rash, negative turgor. Results & Data Results & Data Vital Signs (Past 12 Hours) Vital Signs Temp Pulse Resp BP Pulse Ox O2 Del Method 07/18/22 09:47 Room Air 07/18/22 07:00 36.2 C L 64 16 126/64 95 Room Air Laboratory Results [facility] 07/18/22 08:06 Sodium 132 L Potassium 3.8 Chloride 94 L Carbon Dioxide 29 BUN 83 H Creatinine 1.81 H Glucose 105 H Calcium 9.0 Medications Administered Current Inpatient Medications Acetaminophen (Acetaminophen 325 Mg Tab) 650 mg PO Q4H PRN PRN Reason: pain/fever Stop: 08/16/22 03:02 Last Admin: 07/18/22 05:24 Dose: 650 mg Apixaban (Apixaban 2.5 Mg Tab) 2.5 mg PO BID [facility] Stop: 08/16/22 08:59 Last Admin: 07/18/22 08:37 Dose: 2.5 mg Ascorbic Acid (Ascorbic Acid 500 Mg Tab) 1,000 mg PO QAM [facility] Stop: 08/16/22 08:59 Last Admin: 07/18/22 08:37 Dose: 1,000 mg Calamine/Phenol (Menthol-Zinc Oxide 360 Appln/120 Gm Tube) 1 appln EXT TID PRN PRN Reason: skin irritation Stop: 08/16/22 03:02 Carvedilol (Carvedilol 3.125 Mg Tab) 3.125 mg PO BID [facility] Stop: 08/16/22 08:59 Last Admin: 07/18/22 08:36 Dose: 3.125 mg Clopidogrel Bisulfate (Clopidogrel Bisulfate 75 Mg Tab) 75 mg PO QPM [facility] Stop: 08/16/22 20:59 Last Admin: 07/17/22 21:12 Dose: 75 mg Cyanocobalamin (Cyanocobalamin (B-12) 2,500 Mcg Tablet) 2,500 mcg SL QAM [facility] Stop: 08/16/22 08:59 Last Admin: 07/18/22 08:37 Dose: 2,500 mcg Ezetimibe (Ezetimibe 10 Mg Tablet) 10 mg PO QAM [facility] Stop: 08/16/22 08:59 Last Admin: 07/18/22 08:36 Dose: 10 mg Folic Acid (Folic Acid 400 Mcg Tab) 400 mcg PO [facility] Stop: 08/16/22 08:59 Last Admin: 07/18/22 08:37 Dose: 400 mcg Hydralazine HCl (Hydralazine Hcl 25 Mg Tab) 25 mg PO BID [facility] Stop: 08/16/22 08:59 Last Admin: 07/18/22 08:37 Dose: 25 mg Lidocaine (Lidocaine 5% 1 Patch) 1 patch TD [facility] Stop: 08/17/22 08:59 Last Admin: 07/18/22 05:24 Dose: 1 patch Miscellaneous (Order Awaiting Action: Dutasteride 0.5 Mg Capsule) 1 each N/A QS [facility] Stop: 08/16/22 07:59 Last Admin: 07/18/22 09:34 Dose: Not Given Miscellaneous (Order Awaiting Action: Ferric Citrate [Auryxia] 210 Mg Iron Tablet) 1 each N/A QS [facility] Stop: 08/16/22 07:59 Last Admin: 07/18/22 09:34 Dose: Not Given Miscellaneous (Remove Lidoderm Patch) 1 each N/A DAILY@2100 [facility] Stop: 08/17/22 20:59 Nitroglycerin (Nitroglycerin Sl 0.4 Mg/Tab Tab) 0.4 mg SL Q5M PRN PRN Reason: chest pain Stop: 08/16/22 03:02 Polyethylene Glycol (Polyethylene (Miralax) 17 Gm Pack) 17 gm PO DAILY PRN PRN Reason: Constipation Stop: 08/16/22 20:25 Last Admin: 07/17/22 21:04 Dose: 17 gm Rosuvastatin Calcium (Rosuvastatin Calcium 5 Mg Tab) [facility] [place] [facility]: 08/16/22 08:59 Last Admin: 07/18/22 08:37 Dose: 5 mg Tamsulosin HCl (Tamsulosin Hcl 0.4 Mg Cap) 0.8 mg PO [facility] Stop: 08/16/22 08:59 Last Admin: 07/18/22 08:36 Dose: 0.8 mg Triamcinolone Acetonide (Triamcinolone Acet 0.1% Cr 15 Gm Tube) 1 appln TOP TID PRN PRN Reason: itching Stop: 08/16/22 03:02 Vitamin D (Cholecalciferol 1,000 Units 25 Mcg Tab) 2,000 units PO [facility] Stop: 08/16/22 08:59 Last Admin: 07/18/22 08:37 Dose: 2,000 units Zinc Sulfate (Zinc Sulfate 220 Mg Capsule) 220 mg PO [facility] Stop: 08/16/22 08:59 Last Admin: 07/18/22 08:37 Dose: 220 mg
[2022-07-18] MEDS ORDERED: SODIUM CHLORIDE 0.9% 1000ML 1,000 ML IV SCH (12:45)
[2022-07-18] MEDS ORDERED: traMADol HCL 50 MG TABLET PO PRN (17:49)
[2022-07-18] MEDS: oxyCODONE HCL IR 5 MG TAB (IMMEDIATE RELEASE) PO PRN (19:57)
[2022-07-18] MEDS: MELATONIN 3 MG TAB PO PRN (19:57)
[2022-07-18] MEDS: CLOPIDOGREL BISULFATE 75 MG TAB PO SCH (19:59)
[2022-07-19 07:31] LABS: BUN Creatinine Ratio 42.6 (10-20); Calcium 9.3 mg/dl (8.6-10.3); Creatinine Clr Calc Pharmacy 26.1 ml/min; Est GFR (African American) 37.9 ml/min; Est GFR (Non-African American) 32.7 ml/min; Magnesium 2.5 mg/dl (1.7-2.4); Potassium 4.5 mmol/L (3.5-5.1)
[2022-07-19] MEDS: ROSUVASTATIN CALCIUM 5 MG TAB PO SCH (08:48)
[2022-07-19] MEDS: TAMSULOSIN HCL 0.4 MG CAP PO SCH (08:48)
[2022-07-19] MEDS: APIXABAN 2.5 MG TAB PO SCH (08:49)
[2022-07-19] MEDS: ZINC SULFATE 220 MG CAPSULE PO SCH (08:49)
[2022-07-19] MEDS: CHOLECALCIFEROL 1,000 UNITS 25 MCG TAB PO SCH (08:49)
[2022-07-19] MEDS: hydrALAZINE HCL 25 MG TAB PO SCH ×2 (08:49→20:22)
[2022-07-19] MEDS: FOLIC ACID 400 MCG TAB PO SCH (08:50)
[2022-07-19] MEDS: carvediloL 3.125 MG TAB PO SCH ×2 (08:50→20:22)
[2022-07-19] MEDS: CYANOCOBALAMIN (B-12) 2,500 MCG TABLET SL SCH (08:50)
[2022-07-19] MEDS: ASCORBIC ACID 500 MG TAB PO SCH (08:50)
[2022-07-19] MEDS: LIDOCAINE 5% 1 PATCH TD SCH (08:51)
--- NOTE | 2022-07-19 09:10 | Nephrology Progress Note ---
Date of Service July 19, 2022 Assessment & Plan (1) Hyponatremia: Plan: * Patient remains clinically volume contracted - poor skin turgor, dry mucous membranes, no LE swelling * Na trending up (133 mmol/L today), BUN and Cr are improved following gentle hydration * Continue to hold Bumex, Metolazone * Continue gentle hydration w/ O.9NS * Monitor serum Na (2) Chronic diastolic (congestive) heart failure: Plan: * 07/19 Echo shows combined systolic/diastolic heart failure: LVEF 40-45%, severe pulmonary HTN w/ PASP 65-75 mmHg (3) Chronic kidney disease, stage 4 (severe): Plan: * CKD stage G4/A1 (advanced impairment). Baseline Cr has been 2.6 w/ EGFR 20 cc/min. Urine sediment has been acellular. 09/17 renal US - R 11.1cm with 1.1 cm lower pole stone, L 12.7cm. Renal impairment is due to microvascular disease * Patient has indicated that he does not want dialysis if his renal function worsens due to advanced age and frail health Admission and Anticipated Discharge Date Admission Date: July 17, 2022 Subjective Mr. Ang was evaluated in his hospital room this morning. He is extremely [place], but indicated that he tolerated IV hydration without dyspnea. His RA SaO2 was 98% this am. He would like to go home Review of Systems Constitutional: no fever Eyes: no problem reported Ear, Nose, Mouth, Throat: no problem reported Respiratory: no cough and no dyspnea Cardiovascular: no chest pain Gastrointestinal: no abdominal pain Genitourinary: no urinary hesitancy or no hematuria Neurologic: + generalized weakness Physical Exam Constitutional: + frail appearing; + not appropriately hydrated Eyes: PERRL, conjunctivae normal, anicteric sclerae ENMT: Mouth: + dry oral mucous membranes Neck: trachea midline, no thyromegaly Respiratory: normal respiratory effort, lungs clear to auscultation Cardiovascular: Rate/Rhythm: regular rate and regular rhythm Heart Sounds: + murmur Extremities: no pedal edema Gastrointestinal (Abdomen): normal bowel sounds, soft, nontender, no hepatosplenomegaly Skin: + turgor decreased Neurologic: awake; not confused Cranial Nerves: + hearing impairment Results & Data Vital Signs (Past 12 Hours) Vital Signs Temp Pulse Resp BP Pulse Ox O2 Del Method 07/19/22 08:46 71 142/76 H 07/19/22 07:42 36.4 C L 69 20 114/52 L 98 Room Air 07/19/22 07:20 Room Air 07/18/22 22:36 36.4 C L 63 18 120/56 L 92 Room Air Laboratory Results Laboratory Tests 07/19/22 06:30 Sodium 133 L Potassium 4.5 Chloride 95 L Carbon Dioxide 29 BUN 78 H Creatinine 1.83 H Glucose 106 H Magnesium 2.5 H PG Care Time/CCT Total # of Minutes Spent Total Time Spent with Patient: Total time spent is greater than 50% in coordination of care (as documented) at patient's floor/unit and/or counseling patient: Coding Level of Care Code 38403 SUB INP/OBS CARE 3/50MIN Diagnoses Hyponatremia E87.1 Chronic diastolic (congestive) heart failure I50.32 Chronic kidney disease, stage 4 (severe) N18.4
[2022-07-19] MEDS: EZETIMIBE 10 MG TABLET PO SCH (09:30)
[2022-07-19] MEDS: ACETAMINOPHEN 325 MG TAB PO PRN ×2 (12:11→20:21)
[2022-07-19] MEDS ORDERED: BUMETANIDE SOLN 1 MG/4 ML VIAL IV ONE (14:57)
[2022-07-19] MEDS ORDERED: LEVALBUTEROL 1.25MG/0.5ML NEB NEB STA (14:57)
--- NOTE | 2022-07-19 15:12 | XRay Report ---
XR chest 1V portable CLINICAL HISTORY: CP TECHNIQUE: Single frontal radiograph of the chest was obtained. Comparison: Comparison is made to chest radiograph 07/16/2022 FINDINGS: Median sternotomy wires are unchanged. Cardiomegaly is noted. The aortic arch is calcified. Right low er lung airspace opacity is seen there is a moderate right pleural effusion with some tracking in the horizontal fissure. IMPRESSION: Moderate right pleural effusion is again seen with tracking in the fissure. Airspace opacity in the r ight lower lung likely represents atelectasis with or without superimposed aspiration/pneumonia. ACT 112: Negative or not required by law. Electronically signed by: Esteban Waddell M.D. 07/19/2022 3:10 PM
[2022-07-19] MEDS ORDERED: BUMETANIDE 1 MG in SYRINGE 0 ML IV ONE (15:15)
--- NOTE | 2022-07-19 16:23 | Pulmonary Consultation ---
Date of Consultation July 19, 2022 Assessment & Plan (1) CKD (chronic kidney disease): (2) CHF (congestive heart failure): Heart failure chronicity: acute Heart failure type: unspecified Qualified Code(s): I50.9 - Heart failure, unspecified (3) Pleural effusion: (4) Pulmonary hypertension: Plan Chest x-ray 07/19/2022 personally reviewed: Blunting of bilateral costophrenic angle, right-sided moderate pleural effusion, small left-sided pleural effusion, increased cardiac silhouette 2D echo 07/19/2022: EF 40-45%, severe pulmonary hypertension with PASP 65-75, annalee stolic CHF CT chest 07/01/2022 personally reviewed: Large right-sided pleural effusion, minimal left-sided pleural effusion Dependent atelectasis of the right lower lobe Cardiomegaly No significant mediastinal lymphadenopathy -- Right-sided pleural effusion Multifactorial Likely secondary to systolic CHF plus CKD Patient not in any respiratory distress. No urgent need for thoracentesis -- Pulmonary hypertension Type II Plan: Hold apixaban as of tonight, if the patient is agreeable we will do the proced ure 48 hours from the last dose BiPAP nightly as needed shortness of breath I do not see any clear signs of pneumonia Please note the above document was generated using voice recognition software. It may contain grammatical, syntax or spelling errors.Any formal questions or concerns about the content, text or information contained within the body of this dictation should be directly addressed to the provider for clarification. History of Present Illness Attending Physician: Juancho Shay MD History of Present Illness 87-year-old male presented to the hospital with generalized weakness Past medical history: Coronary artery disease s/p CABG 1995, systolic and diastolic CHF, hypertension, dyslipidemia, CKD Pulmonary consulted for pleural effusion At the time of examination patient was saturating 96-97% on room air He was not in any respiratory distress He is very hard to hear. He was not interested in talking. Is any chest pain, no headache, no nausea, no vomiting Appetite is fair Denies any abdominal pain No dysuria, diarrhea Has been afebrile Please make note patient is a poor historian Social history: Lifetime non-smoker Allergies Allergy/AdvReac Type Severity Reaction Status Date / Time doxazosin [From Cardura] Allergy Intermediate HIVES and Verified 06/26/22 09:45 ITCHING furosemide [From Lasix] Allergy Intermediate HIVES and Verified 06/26/22 09:45 ITCHING hydrochlorothiazide Allergy Intermediate ITCHING Verified 06/26/22 09:45 potassium chloride Allergy Intermediate HIVES and Verified 06/26/22 09:45 ITCHING clonidine Allergy Unknown Unknown Verified 06/26/22 09:45 ketorolac [From Toradol] AdvReac Severe ACUTE Verified 06/26/22 09:45 KIDNEY INJURY lisinopril AdvReac Intermediate COUGH Verified 06/26/22 09:45 Home Medications Medication Instructions Recorded Confirmed Type nitroglycerin 0.4 mg sublingual 0.4 mg sublingual Q5M PRN chest 11/24/20 07/16/22 Rx tablet (Nitrostat) pain #1 tab triamcinolone acetonide 0.1 % 1 applic topical TID PRN itching 11/24/20 07/16/22 Rx topical cream #15 grams zinc 50 mg tablet 50 mg PO QAM 12/06/20 07/16/22 History folic acid 400 mcg tablet 400 mcg PO QAM #30 tabs 08/31/21 07/16/22 Rx menthol 0.44 %-zinc oxide 20.6 % 1 applic topical TID PRN skin 09/05/21 07/16/22 Rx topical ointment (Calmoseptine) irritation #113 grams cholecalciferol (vitamin D3) 50 50 mcg PO QAM 09/25/21 07/16/22 History mcg (2,000 unit) tablet (Vitamin D3) darbepoetin lizzy in polysorbat 60 60 mcg subcut .COMPLEX #1 mL 10/03/21 07/16/22 Rx mcg/mL in polysorbate injection (Aranesp) omega-3 fatty acids 1,000 mg 2,000 mg PO AMPM 11/28/21 07/16/22 History capsule acetaminophen 500 mg tablet 1,000 mg PO Q6H PRN Fever Or Pain 07/16/22 07/16/22 History (Tylenol Extra Strength) ascorbic acid (vitamin C) 1,000 mg 1 g PO QAM 07/16/22 07/16/22 History tablet bumetanide 1 mg tablet 1 mg PO QAM 07/16/22 07/16/22 History carvedilol 3.125 mg tablet 3.125 mg PO AMPM 07/16/22 07/16/22 History clopidogrel 75 mg tablet 75 mg PO QPM 07/16/22 07/16/22 History cyanocobalamin (vitamin B-12) 2,500 mcg sublingual QAM 07/16/22 07/16/22 History 2,500 mcg sublingual tablet (Vitamin B-12) dutasteride 0.5 mg capsule 0.5 mg PO QAM 07/16/22 07/16/22 History ezetimibe 10 mg tablet 10 mg PO QAM 07/16/22 07/16/22 History ferric citrate 210 mg iron tablet 210 mg PO AMPM 07/16/22 07/16/22 History (Auryxia) hydralazine 25 mg tablet 25 mg PO AMPM 07/16/22 07/16/22 History magnesium oxide 400 mg PO QAM 07/16/22 07/16/22 History metolazone 5 mg tablet 5 mg PO 2XWK 07/16/22 07/16/22 History rosuvastatin 5 mg tablet 5 mg PO QAM 07/16/22 07/16/22 History spironolactone 25 mg tablet 12.5 mg PO QAM 07/16/22 07/16/22 History tamsulosin 0.4 mg capsule 0.8 mg PO QAM 07/16/22 07/16/22 History Patient History Medical History Carotid stenosis Diastolic CHF, chronic DVT prophylaxis Hearing loss Hematuria HTN (hypertension) Hyperlipidemia Nephrolithiasis Osteoarthritis PAD (peripheral artery disease) Surgical History H/O endarterectomy H/O lithotripsy Hx of CABG S/P colonoscopic polypectomy S/P total knee arthroplasty left Family History Denies family history of Diabetes Kidney disease Social History Smoking Status: Never smoker Do You Dip or Chew Tobacco: No; Hx Alcohol Use: No Hx Substance Use: No Preferred Language: Malay Communication Ability: Effective Hearing Ability: Hard of Hearing Cytologist Required: No Beliefs That Will Affect Care: None Current Living Situation: Alone current occupational status: retired Other Information That Helps Us Care for You: No Feels Safe at Home: Yes Safety Concerns: Feels Safe At This Time Assistive Devices: Cane, Denture - Upper, Denture - Lower, Glasses and Hearing Aid - Right Review of Systems Review of Systems: All systems reviewed & are unremarkable except as noted in HPI & below Physical Exam Physical Exam: Constitutional: No acute distress HEENT: EOMI, PERRLA, hard to hear Respiratory system: Decreased air entry bilateral, more decreased on the right, positive crackles bilateral lower lobes, no wheeze, no rhonchi CVS: S1-S2 positive, no murmurs or gallops, accentuated P2 Abdomen: Soft, nontender, nondistended, positive bowel sounds x4 Extremities: +2 pulses bilaterally radialis/ dorsalis pedis, no cyanosis, +2 pitting edema bilateral lower extremity Neuro: Awake alert oriented to self Psych: Normal mood and affect G/U: No Desir Skin: no rashes, warm and dry Lymphatic: no cervical or axillary lymphadenopathy Results & Data Results & Data Vital Signs (Past 12 Hours) Vital Signs Temp Pulse Resp BP Pulse Ox O2 Del Method O2 Flow Rate 07/19/22 15:10 51 L 18 96 Oxymask 2 07/19/22 14:30 36.8 C 61 24 117/65 98 Room Air 07/19/22 08:46 71 142/76 H 07/19/22 07:42 36.4 C L 69 20 114/52 L 98 Room Air 07/19/22 07:20 Room Air Laboratory Results 07/17/22 07:02 07/19/22 06:30 PG Care Time/CCT Total # of Minutes Spent Total Time Spent with Patient: Total time spent is greater than 50% in coordination of care (as documented) at patient's floor/unit and/or counseling patient: Coding Level of Care Code 53012 INT INP/OBS CARE MIN Diagnoses CKD (chronic kidney disease) N18.9 CHF (congestive heart failure) I50.9 Heart failure chronicity: acute Heart failure type: unspecified Pleural effusion J90 Pulmonary hypertension I27.20
[2022-07-19] MEDS ORDERED: AMOXICILLIN/CLAVULANATE 500 MG TAB PO SCH (17:00)
--- NOTE | 2022-07-19 17:12 | Electrocardiogram Report ---
Test Reason : Blood Pressure : / mmHG Vent. Rate : 064 BPM Atrial Rate : 064 BPM P-R Int : 198 ms QRS Dur : 096 ms QT Int : 436 ms P-R-T Axes : 015 -04 182 degrees QTc Int : 449 ms Normal sinus rhythm Possible Left atrial enlargement Abnormal ECG When compared with ECG of 16-JUL-2022 18:37, Premature ventricular complexes are no longer Present ST more depressed Lateral leads T wave inversion more evident in Lateral leads Confirmed by Deven Camargo ([id number]) on 07/19/2022 5:12:13 PM Referred By: REFERRED SELF Confirmed By:Swapnil Camargo
--- NOTE | 2022-07-19 17:22 | Hospitalist Progress Note ---
Date of Service July 19, 2022 Assessment & Plan (1) Generalized muscle weakness: (2) Hyponatremia: (3) Hypokalemia: (4) Chronic diastolic (congestive) heart failure: (5) Coronary artery disease: Plan This is an 87-year-old male who has significant past medical history of CAD status post CABG in 1995, chronic diastolic and systolic heart failure, HTN, HLD, PAD, carotid artery disease status post endarterectomy, anemia of chronic disease, CKD stage IV who was admitted to hospital secondary to generalized weakness, poor p.o. intake and hyponatremia. Of significance patient was recently hospitalized secondary to COVID-19, generalized weakness and DILIP. He has baseline creatinine of 2.6. Intake has been poor since most recent discharge. Home physical therapy recommended the patient would benefit from long term care which is still pending availability. In ED patient was hypotensive which improved with IV fluids. Patient hospitalized 07/01 to 07/08 secondary to generalized weakness, COVID-19 positive and DILIP. Since discharge has had generalized poor p.o. intake and therefore he presented back to hospital secondary to generalized weakness and hypotension. Admission labs revealed sodium 128, BUN 112 and creatinine 2.35 SOB Pulmonary edema Called to the bedside this afternoon due to acute worsening of shortness of breath, chest x-ray revealed moderate pleural effusion at right base with possible atelectasis/aspiration pneumonia More comfortable sitting upright on 2 L nasal cannula OxyMask, saturating at 100% Given 40 mg IV Bumex, discussed case with nephrology due to tenuous balance managing hyponatremia, CKD. Dr. Mendoza recommends readdressing goals of care with patient and family given medical complexity Patient evaluated by pulmonary service. Holding apixaban if patient agreeable, Dr. 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 Hypokalemia This was repleted and has normalized Anemia of chronic disease H&H stable at 10.7 and 33.3 CAD with history of CABG HTN Compensated Chronic systolic and diastolic heart failure -Echo from 07/19 reveals LVEF 40 to 45%, severe pulmonary hypertension with PASP of 65 to 75 mmHg Elevated troponin Continue Coreg, hydralazine, Plavix, statin and Zetia elevated trop likely in setting of ckd as well as initial hypotension Hypermagnesemia mag oxide - home med, d/c due to elevated mag levels may be in setting of dehydration, will monitor DVT ppx: apixaban Dispo: admitted to medical, not yet medically stable for d/c, patient now agreeable to rehab FULL CODE PCP: Panchito Anguiano A total of 60 minutes was spent with greater than 50% of that time personally viewing all current laboratory work and diagnostic imaging studies obtained in the ED. Additionally, I was able to view the patients past medication reconciliation and history with direct visualization in the patients chart. Included in the time above, a portion of that time was spent assessing the patient while discussing and collaborating with specialists, if necessary, and making medical decision making on treatment plan. All of the above was collaborated with Dr. Shay. Please see addendum for further details. Admission and Anticipated Discharge Date Admission Date: July 17, 2022 Supervising Physician Co-Signing Physician Notes delayed entry date of service noted above Attending Addendum: care coordinated with JESSI Bello please refer to her notes for full details, I agree with her notes patient seen and examined, records reviewed by myself as well diagnoses and plan of care as per JESSI Shay MD Subjective Patient seen and examined in 375 this morning. Was comfortable, resting, agreeable to go to rehab. RN called later in the afternoon due to shortness of breath and chest pain and was examined again at the bedside with MD. Repeat chest x-ray again demonstrated moderate pulmonary edema on the right side, possible aspiration pneumonia. Chest pain resolved with oxygen. Patient now more comfortable resting on 2 L oxy mask sitting upright. Denies any other new symptoms. No fever, chills, lightheadedness, headache, nausea, vomiting, abdominal pain, dysuria, diarrhea constipation. Review of Systems Review of Systems: At least ten systems reviewed and negative except as noted in the HPI. Physical Exam Physical Exam: Gen: WD/WN, NAD, sitting at side of bed, A&Ox3 HEENT: Very hard of hearing, Normocephalic, atraumatic, conjunctivae moist, sclerae anicteric, mucous membranes moist Lung: decreased breath sounds throughout, bibasilar rales, no wheezes or rhonchi Heart: Regular rate, regular rhythm, no murmurs, rubs, or gallops Abdomen: Soft, NT, ND +BS x 4 Extremities: no edema Skin: Warm, no rash Results & Data Results & Data Vital Signs (Past 12 Hours) Vital Signs Temp Pulse Resp BP Pulse Ox O2 Del Method O2 Flow Rate 07/19/22 16:37 100 Oxymask 2 07/19/22 15:10 51 L 18 96 Oxymask 2 07/19/22 14:30 36.8 C 61 24 117/65 98 Room Air 07/19/22 08:46 71 142/76 H 07/19/22 07:42 36.4 C L 69 20 114/52 L 98 Room Air 07/19/22 07:20 Room Air Laboratory Results BMP 07/19/22 06:30 Sodium 133 L Potassium 4.5 Chloride 95 L Carbon Dioxide 29 BUN 78 H Creatinine 1.83 H Glucose 106 H Calcium 9.3 Diagnostic Findings Chest X-Ray 07/16/22 18:30 XR chest 1V portable HISTORY: 87 years-old Male Weakness acute weakness COMPARISON: Chest radiograph an chest CT 07/01/2022 TECHNIQUE: AP view of the chest FINDINGS: Cardiac silhouette is enlarged. Prior median sternotomy. Pulmonary vascular congestion with interstitial coarsening. Trace left and moderate right pleural effusions with right greater left bibasilar opacities. The left pleural effusion has mildly decreased in size. Degenerative changes of the shoulders and spine with associated rotator cuff calcific tendinosis. IMPRESSION: 1. Cardiomegaly with unchanged pulmonary edema. 2. Trace left and moderate right pleural effusions with persistent bibasilar densities favoring atelectasis. ACT 112: Negative or not required by law. The above report was generated using voice recognition software. It may contain grammatical, syntax or spelling errors. Electronically signed by: Manfred Wilder M.D. 07/17/2022 7:25 AM Abdomen/Pelvis CT 07/16/22 19:06 Exam(s): CT ABDOMEN + PELVIS Without Contrast EXAM: CT Abdomen and Pelvis Without Intravenous Contrast CLINICAL HISTORY: Reason for exam: weakness, black stool. TECHNIQUE: Axial computed tomography images of the abdomen and pelvis without intravenous contrast. Automated exposure control was utilized for the study. A dose lowering technique was utilized adhering to the principles of ALARA. COMPARISON: No relevant prior studies available. FINDINGS: Lung bases: Unremarkable. No mass. No consolidation. Pleural space: Small right pleural effusion. ABDOMEN: Liver: Unremarkable. Gallbladder and bile ducts: Cholelithiasis. No ductal dilation. Pancreas: Unremarkable. No ductal dilation. Spleen: Unremarkable. No splenomegaly. Adrenals: Unremarkable. No mass. Kidneys and ureters: Nonobstructing 5 mm right lower pole renal calculus. Stomach and bowel: Diverticulosis, without acute diverticulitis. No small bowel obstruction. No free intraperitoneal air. PELVIS: Appendix: No findings to suggest acute appendicitis. Bladder: Unremarkable. No stones. Reproductive: Unremarkable as visualized. ABDOMEN and PELVIS: Intraperitoneal space: Unremarkable. No free air. No significant fluid collection. Bones/joints: Degenerative changes of the spine. No acute fracture. No dislocation. Soft tissues: Bilateral gynecomastia. Vasculature: Atherosclerotic changes of the aorta. Bilateral iliac stent grafts. No abdominal aortic aneurysm. Lymph nodes: Unremarkable. No enlarged lymph nodes. IMPRESSION: 1. Diverticulosis, without acute diverticulitis. No small bowel obstruction. No free intraperitoneal air. 2. Small right pleural effusion. 3. Cholelithiasis. 4. Nonobstructing 5 mm right lower pole renal calculus. Electronically signed by: Tito Aguirre MD 07/16/22 20:[address] 07/16/22 19:07 Exam(s): CT HEAD Without Contrast EXAM: CT Head Without Intravenous Contrast CLINICAL HISTORY: Reason for exam: weakness. TECHNIQUE: Axial computed tomography images of the head/brain without intravenous contrast. Automated exposure control was utilized for the study. A dose lowering technique was utilized adhering to the principles of ALARA. COMPARISON: No relevant prior studies available. FINDINGS: No acute intracranial hemorrhage. No midline shift or mass effect. Encephalomalacia in the right [employer]CE ENGINEER territory, consistent with old infarct. Age-related cerebral volume loss. Periventricular and subcortical white matter hypoattenuation, consistent with chronic microangiopathy. The visualized orbits appear grossly unremarkable. The calvarium is intact. The visualized paranasal sinuses and mastoid air cells are grossly clear. IMPRESSION: No acute intracranial hemorrhage, midline shift, or mass effect. Encephalomalacia in the right [employer] ENGINEER territory, consistent with old infarct. Electronically signed by: Tito Aguirre MD 07/16/22 20:14 PM Chest X-Ray 07/19/22 14:43 XR chest 1V portable CLINICAL HISTORY: CP TECHNIQUE: Single frontal radiograph of the chest was obtained. Comparison: Comparison is made to chest radiograph 07/16/2022 FINDINGS: Median sternotomy wires are unchanged. Cardiomegaly is noted. The aortic arch is calcified. Right lower lung airspace opacity is seen there is a moderate right pleural effusion with some tracking in the horizontal fissure. IMPRESSION: Moderate right pleural effusion is again seen with tracking in the fissure. Airspace opacity in the right lower lung likely represents atelectasis with or without superimposed aspiration/pneumonia. ACT 112: Negative or not required by law. Electronically signed by: Esteban Waddell M.D. 07/19/2022 3:10 PM
[2022-07-19] MEDS: AMPICILLIN/SULBACTAM SOD 3,000 MG in 0.9 % SODIUM CHLORIDE 100 ML IV SCH (18:21)
[2022-07-19] MEDS: MELATONIN 3 MG TAB PO PRN (20:21)
[2022-07-19] MEDS: CLOPIDOGREL BISULFATE 75 MG TAB PO SCH (20:22)
[2022-07-20] MEDS: AMPICILLIN/SULBACTAM SOD 3,000 MG in 0.9 % SODIUM CHLORIDE 100 ML IV SCH ×2 (05:26→17:33)
[2022-07-20 07:45] LABS: Hematocrit (blood only) 30.1 % (42.0-52.0); Hemoglobin 9.8 g/dl (14.0-18.0); Mean Corpuscular Hemoglobin 26.5 pg (25.0-34.0); Mean Corpuscular Hgb Conc 32.6 g/dL (32.0-36.0); Mean Corpuscular Volume 81.4 fL (80.0-100.0); Mean Platelet Volume 9.7 fL (9.4-12.4); Platelet Count 249 K/uL (130-400); RDW Coefficient of Variation 19.2 % (11.5-14.5); RDW Standard Deviation 56.8 fL (36.4-46.3); White Blood Count 7.88 K/ul (4.8-10.8)
[2022-07-20] MEDS: hydrALAZINE HCL 25 MG TAB PO SCH ×2 (08:22→20:09)
[2022-07-20 08:23] LABS: BUN Creatinine Ratio 39.6 (10-20); Calcium 8.8 mg/dl (8.6-10.3); Creatinine Clr Calc Pharmacy 26.3 ml/min; Est GFR (African American) 38.1 ml/min; Est GFR (Non-African American) 32.9 ml/min; Potassium 3.5 mmol/L (3.5-5.1)
[2022-07-20] MEDS: TAMSULOSIN HCL 0.4 MG CAP PO SCH (08:23)
[2022-07-20] MEDS: carvediloL 3.125 MG TAB PO SCH ×2 (08:23→20:10)
[2022-07-20] MEDS: FOLIC ACID 400 MCG TAB PO SCH (08:23)
[2022-07-20] MEDS: ZINC SULFATE 220 MG CAPSULE PO SCH (08:23)
[2022-07-20] MEDS: LIDOCAINE 5% 1 PATCH TD SCH (08:24)
[2022-07-20] MEDS: ROSUVASTATIN CALCIUM 5 MG TAB PO SCH (08:24)
[2022-07-20] MEDS: EZETIMIBE 10 MG TABLET PO SCH (08:24)
[2022-07-20] MEDS: ASCORBIC ACID 500 MG TAB PO SCH (08:24)
[2022-07-20] MEDS: CYANOCOBALAMIN (B-12) 2,500 MCG TABLET SL SCH (08:24)
[2022-07-20] MEDS: CHOLECALCIFEROL 1,000 UNITS 25 MCG TAB PO SCH (08:25)
--- NOTE | 2022-07-20 10:42 | Pulmonology Progress Note ---
Date of Service July 20, 2022 Assessment & Plan (1) CKD (chronic kidney disease): (2) CHF (congestive heart failure): Heart failure chronicity: acute Heart failure type: unspecified Qualified Code(s): I50.9 - Heart failure, unspecified (3) Pleural effusion: (4) Pulmonary hypertension: Plan Chest x-ray 07/19/2022 personally reviewed: Blunting of bilateral costophrenic angle, right-sided moderate pleural effusion, small left-sided pleural effusion, increased cardiac silhouette 2D echo 07/19/2022: EF 40-45%, severe pulmonary hypertension with PASP 65-75, diastolic CHF CT chest 07/01/2022 personally reviewed: Large right-sided pleural effusion, minimal left-sided pleural effusion Dependent atelectasis of the right lower lobe Cardiomegaly No significant mediastinal lymphadenopathy -- Right-sided pleural effusion Multifactorial Likely secondary to systolic CHF plus CKD Patient not in any respiratory distress. No urgent need for thoracentesis Bedside ultrasound 07/20/2022 that show moderate amount of right-sided pleural effusion with dependent atelectasis -- Pulmonary hypertension Type II Plan: Hold apixaban as of tonight, if the patient is agreeable we will do the procedure 48 hours from the last dose BiPAP nightly as needed shortness of breath I do not see any clear signs of pneumonia Patient is very hard to hear and I am not sure if he has a capacity to make the decision regarding thoracentesis. I called [facility] Aj [phone] and left a voicemail Please note the above document was generated using voice recognition software. It may contain grammatical, syntax or spelling errors.Any formal questions or c oncerns about the content, text or information contained within the body of this dictation should be directly addressed to the provider for clarification. Admission and Anticipated Discharge Date Admission Date: July 17, 2022 Subjective Patient seen and examined at bedside. No acute distress, no adverse events overnight He was saturating 97% on room air. He was again not interested in talking to me. Was complaining that nobody is letting him sleep. Denies any chest pain, no shortness of breath right now No headache Fair appetite Denies any nausea or vomiting Review of Systems Review of Systems: All systems reviewed & are unremarkable except as noted in Subjective Physical Exam Physical Exam: Constitutional: No acute distress HEENT: EOMI, PERRLA, hard to hear Respiratory system: Decreased air entry bilateral, more decreased on the right, positive crackles bilateral lower lobes, no wheeze, no rhonchi CVS: S1-S2 positive, no murmurs or gallops, accentuated P2 Abdomen: Soft, nontender, nondistended, positive bowel sounds x4 Extremities: +2 pulses bilaterally radialis/ dorsalis pedis, no cyanosis, +2 pit ting edema bilateral lower extremity Neuro: Awake alert oriented to self Psych: Normal mood and affect G/U: No Desir Skin: no rashes, warm and dry Lymphatic: no cervical or axillary lymphadenopathy Results & Data Results & Data Vital Signs (Past 12 Hours) Vital Signs Temp Pulse Resp BP Pulse Ox O2 Del Method 07/20/22 08:19 36.4 C L 69 16 129/74 96 Room Air 07/20/22 07:40 Room Air Laboratory Results 07/20/22 07:28 07/20/22 07:28 PG Care Time/CCT Total # of Minutes Spent Total Time Spent with Patient: Total time spent is greater than 50% in coordination of care (as documented) at patient's floor/unit and/or counseling patient: Coding Level of Care Code 81438 SUB INP/OBS CARE 3/50MIN Diagnoses CKD (chronic kidney disease) N18.9 CHF (congestive heart failure) I50.9 Heart failure chronicity: acute Heart failure type: unspecified Pleural effusion J90 Pulmonary hypertension I27.20
--- NOTE | 2022-07-20 13:28 | Nephrology Progress Note ---
Date of Service July 20, 2022 Assessment & Plan (1) Hyponatremia: Plan: * IVF stopped due to moderate R pleural effusion * Na has dropped to 127 mmol/L today * Uosm > 400 * Recheck Na in am. If no improvement, may need to consider salt tablets and low dose Bumex therapy (2) Chronic diastolic (congestive) heart failure: Plan: * 07/19 Echo shows combined systolic/diastolic heart failure: LVEF 40-45%, severe pulmonary HTN w/ PASP 65-75 mmHg (3) Chronic kidney disease, stage 4 (severe): Plan: * CKD stage G4/A1 (advanced impairment). Baseline Cr has been 2.6 w/ EGFR 20 cc/min. Urine sediment has been acellular. 09/17 renal US - R 11.1cm with 1.1 cm lower pole stone, L 12.7cm. Renal impairment is due to microvascular disease * Patient has indicated that he does not want dialysis if his renal function worsens due to advanced age and frail health Admission and Anticipated Discharge Date Admission Date: July 17, 2022 Subjective Mr. Ang was evaluated in his hospital room this morning. He c/o mild dyspnea. IVF have been stopped. Pulmonology has been consulted for evaluation of R pleural effusion. He would like to go home Review of Systems Constitutional: no fever Eyes: no problem reported Ear, Nose, Mouth, Throat: no problem reported Respiratory: + dyspnea; no cough Cardiovascular: no chest pain Gastrointestinal: no abdominal pain Genitourinary: no urinary hesitancy or no hematuria Neurologic: + generalized weakness Physical Exam Constitutional: + frail appearing; + not appropriately hydrated Eyes: PERRL, conjunctivae normal, anicteric sclerae ENMT: Mouth: + dry oral mucous membranes Neck: trachea midline, no thyromegaly Respiratory: normal respiratory effort Auscultation: + diminished lung sounds (R base) Cardiovascular: Rate/Rhythm: regular rate and regular rhythm Heart Sounds: + murmur Extremities: no pedal edema Gastrointestinal (Abdomen): normal bowel sounds, soft, nontender, no hepatosplenomegaly Skin: + turgor decreased Neurologic: awake; not confused Cranial Nerves: + hearing impairment Results & Data Vital Signs (Past 12 Hours) Vital Signs Temp Pulse Resp BP Pulse Ox O2 Del Method 07/20/22 08:19 36.4 C L 69 16 129/74 96 Room Air 07/20/22 07:40 Room Air Laboratory Results Laboratory Tests 07/20/22 07/20/22 07:28 07:28 WBC 7.88 Hgb 9.8 L Hct 30.1 L Plt Count 249 Sodium 127 L Potassium 3.5 D Chloride 89 L Carbon Dioxide 27 BUN 72 H Creatinine 1.82 H Glucose 120 H Diagnostic Findings 07/19/22 CXR: Moderate right pleural effusion is again seen with tracking in the fissure. Airspace opacity in the right lower lung likely represents atelectasis with or without superimposed aspiration/pneumonia. PG Care Time/CCT Total # of Minutes Spent Total Time Spent with Patient: Total time spent is greater than 50% in coordination of care (as documented) at patient's floor/unit and/or counseling patient: Coding Level of Care Code 98995 SUB INP/OBS CARE 3/50MIN Diagnoses Hyponatremia E87.1 Chronic diastolic (congestive) heart failure I50.32 Chronic kidney disease, stage 4 (severe) N18.4
[2022-07-20] MEDS: ACETAMINOPHEN 325 MG TAB PO PRN ×2 (14:06→22:28)
--- NOTE | 2022-07-20 14:18 | Hospitalist Progress Note ---
Date of Service July 20, 2022 Assessment & Plan (1) Generalized muscle weakness: (2) Hyponatremia: (3) Hypokalemia: (4) Chronic diastolic (congestive) heart failure: (5) Coronary artery disease: Plan This is an 87-year-old male who has significant past medical history of CAD status post CABG in 1995, chronic diastolic and systolic heart failure, HTN, HLD, PAD, carotid artery disease status post endarterectomy, anemia of chronic disease, CKD stage IV who was admitted to hospital secondary to generalized weakness, poor p.o. intake and hyponatremia. Of significance patient was recently hospitalized secondary to COVID-19, generalized weakness and DILIP. He has baseline creatinine of 2.6. Intake has been poor since most recent discharge. Home physical therapy recommended the patient would benefit from custodial care which is still pending availability. In ED patient was hypotensive which improved with IV fluids. Patient hospitalized 07/01-07/08 secondary to generalized weakness, COVID-19 positive and DILIP Since discharge has had generalized poor p.o. intake and therefore he presented back to hospital secondary to generalized weakness and hypotension. Admission labs revealed sodium 128, BUN 112 and creatinine 2.35 SOB Pulmonary edema Decompensated heart failure Echo from 07/19 reveals LVEF 40 to 45%, severe pulmonary hypertension with PASP of 65 to 75 mmHg Worsened SOB yesterday with CXR showing moderate pleural effusion at right base with possible atelectasis/aspiration pneumonia More comfortable sitting upright on 2 L nasal cannula OxyMask, given 40 mg IV Bumex Discussed case with nephrology due to tenuous balance managing hyponatremia, CKD. Dr. Mendoza recommends readdressing goals of care with patient and family given medical complexity Patient evaluated by pulmonary service. Holding apixaban and patient agreeable to thoracentesis tomorrow by Dr. Arechiga Saturation at 96% on room air, less SOB per patient. BiPAP nightly as needed for shortness of breath. Started on Unasyn to cover for possible aspiration pneumonia, speech consulted (patient uncooperative with eval, speech to try again tomorrow). Aspiration precautions No additional diuretics given today as patient more clinically comfortable, sodium decreased to 127 and will undergo thoracentesis tomorrow. 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 Recheck Na in AM. If no improvement, may need to consider salt tablets and low dose Bumex therapy Hypokalemia This was repleted and has normalized Anemia of chronic disease H&H stable at 10.7 and 33.3 CAD with history of CABG HTN Continue Coreg, hydralazine, Plavix, statin and Zetia elevated trop likely in setting of ckd as well as initial hypotension Hypermagnesemia mag oxide - home med, d/c due to elevated mag levels may be in setting of dehydration, will monitor DVT ppx: apixaban Dispo: admitted to medical, not yet medically stable for d/c, patient now agreeable to rehab FULL CODE PCP: Panchito Anguiano A total of 55 minutes was spent with greater than 50% of that time personally viewing all current laboratory work and diagnostic imaging studies obtained in the ED. Additionally, I was able to view the patients past medication reconciliation and history with direct visualization in the patients chart. Included in the time above, a portion of that time was spent assessing the patient while discussing and collaborating with specialists, if necessary, and making medical decision making on treatment plan. All of the above was collaborated with Dr. Shay. Please see addendum for further details. Admission and Anticipated Discharge Date Admission Date: July 17, 2022 Supervising Physician Co-Signing Physician Notes delayed entry date of service noted above Attending Addendum: care coordinated with JESSI Bello please refer to her notes for full details, I agree with her notes patient seen and examined, records reviewed by myself as well diagnoses and plan of care as per JESSI Shay MD Subjective Patient seen and examined in 375 bed 1. Feeling significantly less short of breath today. Resting comfortably lying down on his side. Denies any other new symptoms. Extremely hard of hearing. No chest pain, nausea, vomiting, dumping, dysuria, diarrhea or constipation. Review of Systems Review of Systems: At least ten systems reviewed and negative except as noted in the HPI. Physical Exam Physical Exam: Gen: WD/WN, NAD, lying on his side resting comfortably, A&Ox3 HEENT: Very hard of hearing, Normocephalic, atraumatic, conjunctivae moist, sclerae anicteric, mucous membranes moist Lung: decreased breath sounds throughout, bibasilar rales, no wheezes or rhonchi Heart: Regular rate, regular rhythm, no murmurs, rubs, or gallops Abdomen: Soft, NT, ND +BS x 4 Extremities: 1+ BLE edema Skin: Warm, no rash Results & Data Results & Data Vital Signs (Past 12 Hours) Vital Signs Temp Pulse Resp BP Pulse Ox O2 Del Method 07/20/22 08:19 36.4 C L 69 16 129/74 96 Room Air 07/20/22 07:40 Room Air Laboratory Results Short CBC 07/20/22 Range/Units 07:28 WBC 7.88 (4.8-10.8) K/ul Hgb 9.8 L (14.0-18.0) g/dl Hct 30.1 L (42.0-52.0) % Plt Count 249 (130-400) K/uL BMP 07/20/22 07:28 Sodium 127 L Potassium 3.5 D Chloride 89 L Carbon Dioxide 27 BUN 72 H Creatinine 1.82 H Glucose 120 H Calcium 8.8 Diagnostic Findings Chest X-Ray 07/16/22 18:30 XR chest 1V portable HISTORY: 87 years-old Male Weakness acute weakness COMPARISON: Chest radiograph an chest CT 07/01/2022 TECHNIQUE: AP view of the chest FINDINGS: Cardiac silhouette is enlarged. Prior median sternotomy. Pulmonary vascular congestion with interstitial coarsening. Trace left and moderate right pleural effusions with right greater left bibasilar opacities. The left pleural effusion has mildly decreased in size. Degenerative changes of the shoulders and spine with associated rotator cuff calcific tendinosis. IMPRESSION: 1. Cardiomegaly with unchanged pulmonary edema. 2. Trace left and moderate right pleural effusions with persistent bibasilar densities favoring atelectasis. ACT 112: Negative or not required by law. The above report was generated using voice recognition software. It may contain grammatical, syntax or spelling errors. Electronically signed by: Manfred Wilder M.D. 07/17/2022 7:25 AM Abdomen/Pelvis CT 07/16/22 19:06 Exam(s): CT ABDOMEN + PELVIS Without Contrast EXAM: CT Abdomen and Pelvis Without Intravenous Contrast CLINICAL HISTORY: Reason for exam: weakness, black stool. TECHNIQUE: Axial computed tomography images of the abdomen and pelvis without intravenous contrast. Automated exposure control was utilized for the study. A dose lowering technique was utilized adhering to the principles of ALARA. COMPARISON: No relevant prior studies available. FINDINGS: Lung bases: Unremarkable. No mass. No consolidation. Pleural space: Small right pleural effusion. ABDOMEN: Liver: Unremarkable. Gallbladder and bile ducts: Cholelithiasis. No ductal dilation. Pancreas: Unremarkable. No ductal dilation. Spleen: Unremarkable. No splenomegaly. Adrenals: Unremarkable. No mass. Kidneys and ureters: Nonobstructing 5 mm right lower pole renal calculus. Stomach and bowel: Diverticulosis, without acute diverticulitis. No small bowel obstruction. No free intraperitoneal air. PELVIS: Appendix: No findings to suggest acute appendicitis. Bladder: Unremarkable. No stones. Reproductive: Unremarkable as visualized. ABDOMEN and PELVIS: Intraperitoneal space: Unremarkable. No free air. No significant fluid collection. Bones/joints: Degenerative changes of the spine. No acute fracture. No dislocation. Soft tissues: Bilateral gynecomastia. Vasculature: Atherosclerotic changes of the aorta. Bilateral iliac stent grafts. No abdominal aortic aneurysm. Lymph nodes: Unremarkable. No enlarged lymph nodes. IMPRESSION: 1. Diverticulosis, without acute diverticulitis. No small bowel obstruction. No free intraperitoneal air. 2. Small right pleural effusion. 3. Cholelithiasis. 4. Nonobstructing 5 mm right lower pole renal calculus. Electronically signed by: Tito Aguirre MD 07/16/22 20:[address] 07/16/22 19:07 Exam(s): CT HEAD Without Contrast EXAM: CT Head Without Intravenous Contrast CLINICAL HISTORY: Reason for exam: weakness. TECHNIQUE: Axial computed tomography images of the head/brain without intravenous contrast. Automated exposure control was utilized for the study. A dose lowering technique was utilized adhering to the principles of ALARA. COMPARISON: No relevant prior studies available. FINDINGS: No acute intracranial hemorrhage. No midline shift or mass effect. Encephalomalacia in the right [employer]ICER territory, consistent with old infarct. Age-related cerebral volume loss. Periventricular and subcortical white matter hypoattenuation, consistent with chronic microangiopathy. The visualized orbits appear grossly unremarkable. The calvarium is intact. The visualized paranasal sinuses and mastoid air cells are grossly clear. IMPRESSION: No acute intracranial hemorrhage, midline shift, or mass effect. Encephalomalacia in the right [employer]ER territory, consistent with old infarct. Electronically signed by: Tito Aguirre MD 07/16/22 20:14 PM Chest X-Ray 07/19/22 14:43 XR chest 1V portable CLINICAL HISTORY: CP TECHNIQUE: Single frontal radiograph of the chest was obtained. Comparison: Comparison is made to chest radiograph 07/16/2022 FINDINGS: Median sternotomy wires are unchanged. Cardiomegaly is noted. The aortic arch is calcified. Right lower lung airspace opacity is seen there is a moderate right pleural effusion with some tracking in the horizontal fissure. IMPRESSION: Moderate right pleural effusion is again seen with tracking in the fissure. Airspace opacity in the right lower lung likely represents atelectasis with or without superimposed aspiration/pneumonia. ACT 112: Negative or not required by law. Electronically signed by: Esteban Waddell M.D. 07/19/2022 3:10 PM
--- NOTE | 2022-07-20 15:25 | Procedure Note ---
Procedure Note Date of Service July 20, 2022 Note Bedside Ultrasound: Lung: Right:-Moderate right-sided pleural effusion with dependent atelectasis of the right lower lobe, some pleural thickening also appreciated. B-lines anteriorly Left:-No pleural effusion, B-lines appreciated posteriorly, a lines anteriorly Please note the above document was generated using voice recognition software. It may contain grammatical, syntax or spelling errors.Any formal questions or concerns about the content, text or information contained within the body of this dictation should be directly addressed to the provider for clarification. Coding CPT Codes Pulmonary/Thoracic - Pulmonary and Thoracic: 71461 US, Chest, real time with imaging documentation ([id number]) [facility] [place] [facility] [place] Codes (Charges) Pulmonary/Thoracic Procedure 1: Pulmonary and Thoracic: 94364 US, Chest, real time with imaging documentation
[2022-07-20] MEDS: CLOPIDOGREL BISULFATE 75 MG TAB PO SCH (20:10)
[2022-07-20] MEDS: MELATONIN 3 MG TAB PO PRN (22:28)
[2022-07-21] MEDS: ACETAMINOPHEN 325 MG TAB PO PRN ×2 (05:27→16:26)
[2022-07-21] MEDS: AMPICILLIN/SULBACTAM SOD 3,000 MG in 0.9 % SODIUM CHLORIDE 100 ML IV SCH ×2 (05:32→17:28)
[2022-07-21 06:46] LABS: BUN Creatinine Ratio 35.7 (10-20); Calcium 8.8 mg/dl (8.6-10.3); Creatinine Clr Calc Pharmacy 25.8 ml/min; Est GFR (African American) 37.4 ml/min; Est GFR (Non-African American) 32.3 ml/min; Potassium 3.9 mmol/L (3.5-5.1)
--- NOTE | 2022-07-21 08:23 | Pulmonology Progress Note ---
Date of Service July 21, 2022 Assessment & Plan (1) CKD (chronic kidney disease): (2) CHF (congestive heart failure): Heart failure chronicity: acute Heart failure type: unspecified Qualified Code(s): I50.9 - Heart failure, unspecified (3) Pleural effusion: (4) Pulmonary hypertension: Plan Chest x-ray 07/19/2022 personally reviewed: Blunting of bilateral costophrenic angle, right-sided moderate pleural effusion, small left-sided pleural effusion, increased cardiac silhouette 2D echo 07/19/2022: EF 40-45%, severe pulmonary hypertension with PASP 65-75, diastolic CHF CT chest 07/01/2022 personally reviewed: Large right-sided pleural effusion, minimal left-sided pleural effusion Dependent atelectasis of the right lower lobe Cardiomegaly No significant mediastinal lymphadenopathy -- Right-sided pleural effusion Multifactorial Likely secondary to systolic CHF plus CKD Patient not in any respiratory distress. No urgent need for thoracentesis Bedside ultrasound 07/20/2022 that show moderate amount of right-sided pleural effusion with dependent atelectasis -- Pulmonary hypertension Type II Plan: Last apixaban dose was 07/19/2022 9am, if the patient is agreeable we will do the procedure 48 hours from the last dose Patient is very hard to hear and I am not sure if he has a capacity to make the decision regarding thoracentesis. I called Confer, Vernon [phone] and he is agreeable to the procedure. Risks and benefits of the procedure were explained, Vernon understands and is agreeable to the procedure. Plan to do thoracentesis later today Case was discussed with RN at bedside Please note the above document was generated using voice recognition software. It may contain grammatical, syntax or spelling errors.Any formal questions or concerns about the content, text or information contained within the body of this dictation should be directly addressed to the provider for clarification. Admission and Anticipated Discharge Date Admission Date: July 17, 2022 Subjective Patient seen and examined at bedside. No acute distress, no adverse events overnight Patient was in a better mood today. Answering all the questions appropriately Denies any issues with his breathing No chest pain, no chest tightness. Occasional cough with clear phlegm Fair appetite No nausea vomiting Review of Systems Review of Systems: All systems reviewed & are unremarkable except as noted in Subjective Physical Exam Physical Exam: Constitutional: No acute distress HEENT: EOMI, PERRLA, hard to hear Respiratory system: Decreased air entry bilateral, more decreased on the right, positive crackles bilateral lower lobes, no wheeze, no rhonchi CVS: S1-S2 positive, positive 2 out of 6 systolic murmur appreciated best at aorta, accentuated P2 Abdomen: Soft, nontender, nondistended, positive bowel sounds x4 Extremities: +2 pulses bilaterally radialis/ dorsalis pedis, no cyanosis, +1 pitting edema bilateral lower extremity Neuro: Awake alert oriented to self Psych: Normal mood and affect G/U: No Desir Skin: no rashes, warm and dry Lymphatic: no cervical or axillary lymphadenopathy Results & Data Results & Data Vital Signs (Past 12 Hours) Vital Signs Temp Pulse Resp BP Pulse Ox O2 Del Method 07/21/22 07:50 36.4 C L 69 18 135/74 97 Room Air Laboratory Results 07/20/22 07:28 07/21/22 05:36 PG Care Time/CCT Total # of Minutes Spent Total Time Spent with Patient: Total time spent is greater than 50% in coordination of care (as documented) at patient's floor/unit and/or counseling patient: Coding Level of Care Code 10329 SUB INP/OBS CARE 3/50MIN Diagnoses CKD (chronic kidney disease) N18.9 CHF (congestive heart failure) I50.9 Heart failure chronicity: acute Heart failure type: unspecified Pleural effusion J90 Pulmonary hypertension I27.20
[2022-07-21] MEDS: ROSUVASTATIN CALCIUM 5 MG TAB PO SCH (09:19)
[2022-07-21] MEDS: hydrALAZINE HCL 25 MG TAB PO SCH (09:19)
[2022-07-21] MEDS: ASCORBIC ACID 500 MG TAB PO SCH (09:20)
[2022-07-21] MEDS: CYANOCOBALAMIN (B-12) 2,500 MCG TABLET SL SCH (09:20)
[2022-07-21] MEDS: FOLIC ACID 400 MCG TAB PO SCH (09:20)
[2022-07-21] MEDS: CHOLECALCIFEROL 1,000 UNITS 25 MCG TAB PO SCH (09:20)
[2022-07-21] MEDS: EZETIMIBE 10 MG TABLET PO SCH (09:20)
[2022-07-21] MEDS: TAMSULOSIN HCL 0.4 MG CAP PO SCH (09:20)
[2022-07-21] MEDS: carvediloL 3.125 MG TAB PO SCH ×2 (09:20→20:18)
[2022-07-21] MEDS: ZINC SULFATE 220 MG CAPSULE PO SCH (09:20)
[2022-07-21] MEDS: LIDOCAINE 5% 1 PATCH TD SCH (09:21)
--- NOTE | 2022-07-21 12:50 | Procedure Note ---
Procedure Note Date of Service July 21, 2022 Note Procedure: Diagnostic therapeutic ultrasound-guided catheter thoracentesis Business Integration Manager: Dr. Johnna Arechiga Indication: Right-sided pleural effusion Consent: Telephone consent obtained from patient's manoloewMadai and verified with timeout prior to procedure Anesthesia: 1% lidocaine without epinephrine local. Procedure: Consent was verified and timeout performed. Appropriate imaging studies were reviewed prior to the procedure. Patient was placed in a seated position and limited thoracic ultrasound was performed of the right chest. See separate imaging. Appropriate site above the diaphragm for thoracentesis was selected. The skin was prepped and draped in normal sterile fashion. Lidocaine was used for local analgesia. Fluid was aspirated via the finder needle. A small skin dorian was made with the scalpel and the catheter over the needle apparatus was advanced over the rib into the pleural space. Using the syringe one-way valve system, a total of 2000 mL's of sanguinous fluid was removed. The catheter was removed and observed to be intact. A sterile dressing was applied. Post procedure chest x-ray was ordered. Fluid was sent for labs, culture and cytology. Complications: None Blood loss: None Coding CPT Codes Pulmonary/Thoracic - Pulmonary and Thoracic: 73185 Thoracentesis w imaging ([id number]) [facility] [place] (Charges) Pulmonary/Thoracic Procedure 1: Pulmonary and Thoracic: 14053 Thoracentesis w imaging
--- NOTE | 2022-07-21 12:52 | Nephrology Progress Note ---
Date of Service July 21, 2022 Assessment & Plan (1) Chronic kidney disease, stage 4 (severe): (2) Hyponatremia: (3) Generalized weakness: (4) Pleural effusion: Plan 87 year old male With stage IV CKD baseline creatinine around 2-2.5, no significant proteinuria or hematuria on urinalysis. renal US - R 11.1cm with 1.1 cm lower pole stone, L 12.7cm. Presented to the hospital initially with generalized is for 2-3 days after a prior hospitalization early in the month. Since admission renal function staying relatively stable, sodium has been low, last 2 days sodium staying 127. overall otherwise asymptomatic. -- Recommend starting on salt tablet 1 g twice a day and resume Bumex at 1 mg daily. -- If discharge anticipated, recommend checking renal function electrolyte on Saturday will monitor while inpatient. Admission and Anticipated Discharge Date Admission Date: July 17, 2022 Bryn Machado was seen and evaluated this morning. He denied any shortness of breath chest pain. Sodium dropped and staying 127, renal function staying relatively stable. Blood pressure well controlled. Review of Systems Review of Systems: Detail ROS was otherwise unremarkable. Physical Exam Constitutional: WD/WN, vitals as above + ill appearing; no acute distress Eyes: + anicteric sclerae Respiratory: Auscultation: + diminished lung sounds; no crackles and no wheezes Cardiovascular: Rate/Rhythm: regular rate and regular rhythm Heart Sounds: + murmur Extremities: no edema Neurologic: no focal motor deficits Psychiatric: Orientation: alert and oriented x 3 Affect: euthymic affect Results & Data Vital Signs (Past 12 Hours) Vital Signs Temp Pulse Resp BP Pulse Ox O2 Del Method 07/21/22 08:00 Room Air 07/21/22 07:50 36.4 C L 69 18 135/74 97 Room Air PG Care Time/CCT Total # of Minutes Spent Total Time Spent with Patient: Total time spent is greater than 50% in coordination of care (as documented) at patient's floor/unit and/or counseling patient: Coding Level of Care Code 46783 SUB INP/OBS CARE 2/35MIN Diagnoses Chronic kidney disease, stage 4 (severe) N18.4 Hyponatremia E87.1 Generalized weakness R53.1 Pleural effusion J90
[2022-07-21 13:32] LABS: Albumin Level 3.1 gm/dl (3.4-5.0); Bilirubin,Total 0.8 mg/dl (0.2-1.0); Total Protein 6.6 gm/dl (6.0-8.3)
[2022-07-21 13:42] LABS: Amylase Pleural Fluid 23 U/L
[2022-07-21 13:47] LABS: Glucose Pleural Fluid 132 mg/dl; LDH Pleural Fluid 62 U/L; Total Protein Pleural Fluid < 3.0 gm/dl
[2022-07-21 14:06] LABS: Appearance Pleural Fluid Bloody; Color Pleural Fluid Amber; RBC Pleural Fluid Auto 41000 /uL; Source Pleural Fluid Right Lung; WBC Pleural Fluid Auto 81 /uL
--- NOTE | 2022-07-21 14:12 | XRay Report ---
SINGLE VIEW CHEST CLINICAL HISTORY: Status post thoracentesis. FINDINGS: An AP, portable, upright chest radiograph is compared to study dated 07/19/2022 and correlat ed with chest CT dated 07/01/2022. The patient is status post midline sternotomy. The heart is enlarged and noting atherosclerotic calcification of the thoracic aorta. There is mild pulmonary vascular con gestion. Chronic interstitial thickening is similar to previous. There is a moderate right apical to basilar pneumothorax. The trachea is midline. The left lung appears clear noting basilar atelectasis. The right pleural effusion seen previously has resolved. No pneumothorax is seen. The skeletal struc tures are osteopenic. The bony thorax is grossly intact. Arthritic change is noted in the shoulders. IMPRESSION: 1. There is a moderate right apical to basal pneumothorax. The trachea is midline. 2. Cardiomegaly with pulmonary vascular congestion. 3. The left lung appears clear. ACT 112: Negative or not required by law. Electronically signed by: Paco Pardo M.D. 07/21/2022 2:10 PM
[2022-07-21 14:18] LABS: Lymphocytes, Fluid 41 %; Mono,Macrophage,Mesothelial 41 %; Neutrophils, Fluid 18 %
--- NOTE | 2022-07-21 14:57 | Hospitalist Progress Note ---
Date of Service July 21, 2022 Assessment & Plan (1) Generalized muscle weakness: (2) Hyponatremia: (3) Hypokalemia: (4) Chronic diastolic (congestive) heart failure: (5) Coronary artery disease: Plan per Kenna Bello's notes with addendum: (1) Generalized muscle weakness: (2) Hyponatremia: (3) Hypokalemia: (4) Chronic diastolic (congestive) heart failure: (5) Coronary artery disease: Plan This is an 87-year-old male who has significant past medical history of CAD status post CABG in 1995, chronic diastolic and systolic heart failure, HTN, HLD, PAD, carotid artery disease status post endarterectomy, anemia of chronic disease, CKD stage IV who was admitted to hospital secondary to generalized weakness, poor p.o. intake and hyponatremia. Of significance patient was recently hospitalized secondary to COVID-19, generalized weakness and DILIP. He has baseline creatinine of 2.6. Intake has been poor since most recent discharge. Home physical therapy recommended the patient would benefit from retirement care which is still pending availability. In ED patient was hypotensive which improved with IV fluids. Patient hospitalized 07/01-07/08 secondary to generalized weakness, COVID-19 positive and DILIP Since discharge has had generalized poor p.o. intake and therefore he presented back to hospital secondary to generalized weakness and hypotension. Admission labs revealed sodium 128, BUN 112 and creatinine 2.35 SOB Pulmonary edema Decompensated heart failure Echo from 07/19 reveals LVEF 40 to 45%, severe pulmonary hypertension with PASP of 65 to 75 mmHg Worsened SOB yesterday with CXR showing moderate pleural effusion at right base with possible atelectasis/aspiration pneumonia More comfortable sitting upright on 2 L nasal cannula OxyMask, given 40 mg IV Bumex Discussed case with nephrology due to tenuous balance managing hyponatremia, CKD. Dr. Mendoza recommends readdressing goals of care with patient and family given medical complexity Patient evaluated by pulmonary service.Holding apixaban and patient agreeable to thoracentesis tomorrow by Dr. Arechiga Saturation at 96% on room air, less SOB per patient. BiPAP nightly as needed for shortness of breath. Started on Unasyn to cover for possible aspiration pneumonia, speech consulted (patient uncooperative with eval, speech to try again tomorrow). Aspiration precautions No additional diuretics given today as patient more clinically comfortable, sodium decreased to 127 and will undergo thoracentesis tomorrow. 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 Recheck Na in AM. If no improvement, may need to consider salt tablets and low dose Bumex therapy 07/21 Na 127 Nephro recommendations noted NaCL 1g BID resume Bumex repeat labs in AM Hypokalemia This was repleted and has normalized Anemia of chronic disease H&H stable at 10.7 and 33.3 CAD with history of CABG HTN Continue Coreg, hydralazine, Plavix, statin and Zetia elevated trop likely in setting of ckd as well as initial hypotension Hypermagnesemia mag oxide - home med, d/c due to elevated mag levels may be in setting of dehydration, will monitor DVT ppx: apixaban Dispo: admitted to medical, not yet medically stable for d/c, patient now agreeable to rehab FULL CODE PCP: Panchito Anguiano Admission and Anticipated Discharge Date Admission Date: July 17, 2022 Subjective ff up for weakness, pleural effusion, hyponatremia, etc seen resting in bed,on oxymask s/p thoracentesis states he feels ok no dyspnea, chest pain no other symptoms Review of Systems Review of Systems: all noted and negative except for above Physical Exam Physical Exam: General- oriented x 2, not in distress, speaks in sentences with no effort or accessory muscle use Eyes- anicteric Neck- no JVD Lungs- clear BS bilaterally, no rales/wheezes Heart- normal rate, regular rhythm; no murmurs Abdomen- normal bowel sounds, nondistended, soft, nontender Extremities- no pretibial edema, no calf tenderness Neuro- alert, oriented x 2; no gross focal neurologic deficits Skin- warm & dry Results & Data Results & Data Vital Signs (Past 12 Hours) Vital Signs Temp Pulse Resp BP Pulse Ox O2 Del Method 07/21/22 12:31 101/55 L 07/21/22 12:25 119/66 07/21/22 12:21 102/60 07/21/22 12:10 113/62 07/21/22 08:00 Room Air 07/21/22 07:50 36.4 C L 69 18 135/74 97 Room Air
--- NOTE | 2022-07-21 18:27 | XRay Report ---
SINGLE VIEW CHEST CLINICAL HISTORY: Follow-up pneumothorax. FINDINGS: An AP, portable, upright chest radiograph is compared to study performed earlier the same d ay 07/21/2022 and correlated with chest CT dated 07/01/2022. Surgical clips are noted in the right lower neck. The examination is degraded by portable technique and apical lordotic positioning. The patient is status post midline sternotomy. The heart is enlarged and noting atherosclerotic calcification of the thoracic aorta. There is mild pulmonary vascular congestion. Chronic interstitial thickening is similar to previous. A moderate right apical to basilar pneumothorax has not significant changed. The trachea is midline. There is atelectasis at the right lung base. The left lung appears clear noting basilar atelectasis. There is trace pleural fluid the right base. No pneumothorax is seen. The skelet al structures are osteopenic. The bony thorax is grossly intact. Arthritic change is noted in the helen ulders. IMPRESSION: 1. There is a moderate right apical to basal pneumothorax, not significant change from previous. The trachea is midline. 2. Cardiomegaly with pulmonary vascular congestion. 3. The left lung appears clear. ACT 112: Negative or not required by law. Electronically signed by: Paco Pardo M.D. 07/21/2022 6:26 PM
[2022-07-21] MEDS: oxyCODONE HCL IR 5 MG TAB (IMMEDIATE RELEASE) PO PRN (20:16)
[2022-07-21] MEDS: MELATONIN 3 MG TAB PO PRN (20:16)
[2022-07-21] MEDS: SODIUM CHLORIDE 1 GM TABLET PO SCH (20:18)
[2022-07-21] MEDS: CLOPIDOGREL BISULFATE 75 MG TAB PO SCH (20:19)
[2022-07-22] MEDS: AMPICILLIN/SULBACTAM SOD 3,000 MG in 0.9 % SODIUM CHLORIDE 100 ML IV SCH ×2 (05:43→16:50)
[2022-07-22 07:15] LABS: Basophils # (auto) 0.02 K/uL (0-0.2); Basophils % (auto) 0.2 %; Eosinophils # (auto) 0.03 K/uL (0-0.50); Eosinophils % (auto) 0.4 %; Hematocrit (blood only) 30.5 % (42.0-52.0); Hemoglobin 9.7 g/dl (14.0-18.0); Immature Granulocytes # (auto) 0.04 K/uL (0.01-0.20); Immature Granulocytes % (auto) 0.5 %; Lymphocytes # (auto) 0.52 K/uL (1.2-3.4); Lymphocytes % (auto) 6.3 %; Mean Corpuscular Hemoglobin 26.2 pg (25.0-34.0); Mean Corpuscular Hgb Conc 31.8 g/dL (32.0-36.0); Mean Corpuscular Volume 82.4 fL (80.0-100.0); Mean Platelet Volume 10.4 fL (9.4-12.4); Monocytes # (auto) 0.57 K/uL (0.11-0.59); Monocytes % (auto) 6.9 %; Neutrophils % (auto) 85.7 %; Platelet Count 252 K/uL (130-400); RDW Coefficient of Variation 18.9 % (11.5-14.5); White Blood Count 8.28 K/ul (4.8-10.8)
--- NOTE | 2022-07-22 07:15 | Pulmonology Progress Note ---
Date of Service July 22, 2022 Assessment & Plan (1) Pneumothorax ex vacuo: (2) Pleural effusion: (3) Pulmonary hypertension: (4) CKD (chronic kidney disease): (5) CHF (congestive heart failure): Heart failure chronicity: acute Heart failure type: unspecified Qualified Code(s): I50.9 - Heart failure, unspecified Plan Chest x-ray 07/19/2022 personally reviewed: Blunting of bilateral costophrenic angle, right-sided moderate pleural effusion, small left-sided pleural effusion, increased cardiac silhouette 2D echo 07/19/2022: EF 40-45%, severe pulmonary hypertension with PASP 65-75, diastolic CHF CT chest 07/01/2022 personally reviewed: Large right-sided pleural effusion, minimal left-sided pleural effusion Dependent atelectasis of the right lower lobe Cardiomegaly No significant mediastinal lymphadenopathy -- Right-sided pleural effusion Multifactorial Likely secondary to systolic CHF plus CKD Patient not in any respiratory distress. No urgent need for thoracentesis Bedside ultrasound 07/20/2022 that show moderate amount of right-sided pleural effusion with dependent atelectasis S/p thoracentesis 07/21/2022, 2 L of fluid sanguinous removed, transudative as per lights criteria Pleural: LDH 62, protein less than 3, glucose 132, pH 7.49 Serum: LDH 213, protein 6.6 -- Pneumothorax ex-vacuo Appreciated postthoracentesis 07/21/2022 There has been no change in the size of the pneumothorax on the right side Ex vacuo has started to fill up with fluid again which is expected No intervention needed as patient is hemodynamically stable -- Pulmonary hypertension Type II Plan: Patient has had 3 chest x-rays since yesterday afternoon. There has been no change in the size of pneumothorax ex vacuo. Saturating 97% on room air not in any acute distress Will recommend repeating a chest x-ray again tomorrow in the morning and if that is stable can resume apixaban. Vernon Aj [phone] was called and made aware regarding the finding and plan. He understands and is agreeable to it Case was discussed with RN and Dr. Shay Please note the above document was generated using voice recognition software. It may contain grammatical, syntax or spelling errors.Any formal questions or concerns about the content, text or information contained within the body of this dictation should be directly addressed to the provider for clarification. Admission and Anticipated Discharge Date Admission Date: July 17, 2022 Subjective Patient seen and examined at bedside. No acute distress, no adverse events overnight Denies any chest pain, no shortness of breath Saturating 97% at rest while lying on the right side with heart rate in the 70s. Denies any headache. Fair appetite. Review of Systems Review of Systems: All systems reviewed & are unremarkable except as noted in Subjective Physical Exam Physical Exam: Constitutional: No acute distress HEENT: EOMI, PERRLA, very hard to hear Respiratory system: Decreased air entry bilaterally, positive crackles bilateral lower lobes, no wheeze, no rhonchi CVS: S1-S2 positive, positive 2 out of 6 systolic murmur appreciated best at aorta, accentuated P2 Abdomen: Soft, nontender, nondistended, positive bowel sounds x4 Extremities: +2 pulses bilaterally radialis/ dorsalis pedis, no cyanosis, +1 pitting edema bilateral lower extremity Neuro: Awake alert oriented to self Psych: Normal mood and affect G/U: No Desir Skin: no rashes, warm and dry Lymphatic: no cervical or axillary lymphadenopathy Results & Data Results & Data Vital Signs (Past 12 Hours) Vital Signs Temp Pulse Resp BP Pulse Ox O2 Del Method 07/21/22 19:30 Room Air 07/21/22 20:00 36.8 C 67 20 122/41 L 97 Room Air Laboratory Results 07/22/22 06:37 07/22/22 06:37 PG Care Time/CCT Total # of Minutes Spent Total Time Spent with Patient: Total time spent is greater than 50% in coordination of care (as documented) at patient's floor/unit and/or counseling patient: Coding Level of Care Code 78242 SUB INP/OBS CARE 3/50MIN Diagnoses Pneumothorax ex vacuo J93.83 Pleural effusion J90 Pulmonary hypertension I27.20 CKD (chronic kidney disease) N18.9 CHF (congestive heart failure) I50.9 Heart failure chronicity: acute Heart failure type: unspecified
[2022-07-22 07:31] LABS: BUN Creatinine Ratio 34.6 (10-20); Calcium 8.5 mg/dl (8.6-10.3); Creatinine Clr Calc Pharmacy 25.8 ml/min; Est GFR (African American) 37.4 ml/min; Est GFR (Non-African American) 32.3 ml/min; Magnesium 2.2 mg/dl (1.7-2.4); Potassium 3.6 mmol/L (3.5-5.1)
[2022-07-22] MEDS: EZETIMIBE 10 MG TABLET PO SCH (09:17)
[2022-07-22] MEDS: carvediloL 3.125 MG TAB PO SCH ×2 (09:17→20:13)
[2022-07-22] MEDS: FOLIC ACID 400 MCG TAB PO SCH (09:17)
[2022-07-22] MEDS: CYANOCOBALAMIN (B-12) 2,500 MCG TABLET SL SCH (09:17)
[2022-07-22] MEDS: ROSUVASTATIN CALCIUM 5 MG TAB PO SCH (09:17)
[2022-07-22] MEDS: CHOLECALCIFEROL 1,000 UNITS 25 MCG TAB PO SCH (09:18)
[2022-07-22] MEDS: ASCORBIC ACID 500 MG TAB PO SCH (09:18)
[2022-07-22] MEDS: LIDOCAINE 5% 1 PATCH TD SCH (09:18)
[2022-07-22] MEDS: ZINC SULFATE 220 MG CAPSULE PO SCH (09:18)
[2022-07-22] MEDS: BUMETANIDE 1 MG TAB PO SCH (09:18)
[2022-07-22] MEDS: TAMSULOSIN HCL 0.4 MG CAP PO SCH (09:18)
[2022-07-22] MEDS: SODIUM CHLORIDE 1 GM TABLET PO SCH ×2 (09:18→20:13)
[2022-07-22] MEDS: ACETAMINOPHEN 325 MG TAB PO PRN ×2 (09:23→20:13)
--- NOTE | 2022-07-22 10:27 | XRay Report ---
XR chest 1V portable CLINICAL HISTORY: f/u pneumo TECHNIQUE: Single frontal radiograph of the chest was obtained. Comparison: Comparison is made to chest radiograph 07/21/2022 FINDINGS: Median sternotomy wires are unchanged. Cardiomegaly is noted. The aortic arch is calcified. Right pne umothorax is somewhat redistributed but appears stable to minimally decreased in size. There may be a small right pleural effusion. IMPRESSION: 1. Interval stability to minimal decrease in size of right pneumothorax. 2. Cardiomegaly. ACT 112: Negative or not required by law. Electronically signed by: Esteban Waddell M.D. 07/22/2022 10:25 AM
--- NOTE | 2022-07-22 11:08 | XRay Report ---
XR chest 1V portable CLINICAL HISTORY: f/u TECHNIQUE: Single frontal radiograph of the chest was obtained. Comparison: Comparison is made to chest radiograph 07/21/2022 FINDINGS: Median sternotomy wires are unchanged. Calcified aortic knob is seen. Airspace opacity in the right l ower lung is unchanged. Right pneumothorax appears minimally improved from prior exam. There is a sma ll right pleural effusion. Vascular calcifications are noted in the subclavian arteries. IMPRESSION: 1. Right pneumothorax appears minimally improved from prior exam. There is a small right pleural eff usion. 2. Airspace opacity in the right lower lung is unchanged and likely represents atelectasis with or w ithout superimposed aspiration/pneumonia. ACT 112: Negative or not required by law. Electronically signed by: Esteban Waddell M.D. 07/22/2022 11:05 AM
--- NOTE | 2022-07-22 12:17 | Nephrology Progress Note ---
Date of Service July 22, 2022 Assessment & Plan (1) Chronic kidney disease, stage 4 (severe): (2) Hyponatremia: (3) Generalized weakness: (4) Pleural effusion: Plan 87 year old male with stage IV CKD baseline creatinine around 2-2.5, no significant proteinuria or hematuria on urinalysis. renal US - R 11.1cm with 1.1 cm lower pole stone, L 12.7cm. Presented to the hospital initially with generalized is for 2-3 days after a prior hospitalization early in the month. Since admission renal function staying relatively stable, sodium has been low, last 2 days sodium staying 127. overall otherwise asymptomatic. Sodium improved to 130 on oral salt tablet, renal function staying relatively stable, other electrolyte, volume status acceptable. Blood pressure well controlled. -- continue on salt tablet 1 g twice a day and Bumex at 1 mg daily. -- If discharge anticipated, recommend checking renal function electrolyte 2-3 days after discharge. will sign off, please contact if further assistance needed, thank you. Admission and Anticipated Discharge Date Admission Date: July 17, 2022 Bryn Cobb was seen this morning, while he was getting evaluated by PT and OT. His seem comfortable, denied any shortness of breath chest pain. Review of Systems Review of Systems: Detail ROS was otherwise unremarkable. Physical Exam Constitutional: WD/WN, vitals as above + ill appearing; no acute distress Detailed exam was not done. Results & Data Vital Signs (Past 12 Hours) Vital Signs Temp Pulse Resp BP Pulse Ox O2 Del Method 07/22/22 10:31 Room Air 07/22/22 09:17 128/52 L 07/22/22 07:14 36.7 C 75 18 121/49 L 97 Room Air PG Care Time/CCT Total # of Minutes Spent Total Time Spent with Patient: Total time spent is greater than 50% in coordination of care (as documented) at patient's floor/unit and/or counseling patient: Coding Level of Care Code 18062 SUB INP/OBS CARE 2/35MIN Diagnoses Chronic kidney disease, stage 4 (severe) N18.4 Hyponatremia E87.1 Generalized weakness R53.1 Pleural effusion J90
--- NOTE | 2022-07-22 13:05 | Hospitalist Progress Note ---
Date of Service July 22, 2022 Assessment & Plan (1) Generalized muscle weakness: (2) Hyponatremia: (3) Hypokalemia: (4) Chronic diastolic (congestive) heart failure: (5) Coronary artery disease: Plan per Kenna Bello's notes with addendum: (1) Generalized muscle weakness: (2) Hyponatremia: (3) Hypokalemia: (4) Chronic diastolic (congestive) heart failure: (5) Coronary artery disease: Plan This is an 87-year-old male who has significant past medical history of CAD status post CABG in 1995, chronic diastolic and systolic heart failure, HTN, HLD, PAD, carotid artery disease status post endarterectomy, anemia of chronic disease, CKD stage IV who was admitted to hospital secondary to generalized weakness, poor p.o. intake and hyponatremia. Of significance patient was recently hospitalized secondary to COVID-19, generalized weakness and DILIP. He has baseline creatinine of 2.6. Intake has been poor since most recent discharge. Home physical therapy recommended the patient would benefit from halfway care which is still pending availability. In ED patient was hypotensive which improved with IV fluids. Patient hospitalized 07/01-07/08 secondary to generalized weakness, COVID-19 positive and DILIP Since discharge has had generalized poor p.o. intake and therefore he presented back to hospital secondary to generalized weakness and hypotension. Admission labs revealed sodium 128, BUN 112 and creatinine 2.35 SOB Pulmonary edema Decompensated heart failure Echo from 07/19 reveals LVEF 40 to 45%, severe pulmonary hypertension with PASP of 65 to 75 mmHg Worsened SOB yesterday with CXR showing moderate pleural effusion at right base with possible atelectasis/aspiration pneumonia More comfortable sitting upright on 2 L nasal cannula OxyMask, given 40 mg IV Bumex Discussed case with nephrology due to tenuous balance managing hyponatremia, CKD. Dr. Mendoza recommends readdressing goals of care with patient and family given medical complexity Patient evaluated by pulmonary service.Holding apixaban and patient agreeable to thoracentesis tomorrow by Dr. Arechiga Saturation at 96% on room air, less SOB per patient. BiPAP nightly as needed for shortness of breath. Started on Unasyn to cover for possible aspiration pneumonia, speech consulted (patient uncooperative with eval, speech to try again tomorrow). Aspiration precautions No additional diuretics given today as patient more clinically comfortable, sodium decreased to 127 and will undergo thoracentesis tomorrow. 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 Recheck Na in AM. If no improvement, may need to consider salt tablets and low dose Bumex therapy 07/21 Na 127 Nephro recommendations noted NaCL 1g BID resume Bumex repeat labs in AM 07/22 Na 130 continue salt tab BID and Bumex repeat lab tomorrow, then 2-3 days post discharge Hypokalemia This was repleted and has normalized Anemia of chronic disease H&H stable at 10.7 and 33.3 CAD with history of CABG HTN Continue Coreg, hydralazine, Plavix, statin and Zetia elevated trop likely in setting of ckd as well as initial hypotension Hypermagnesemia mag oxide - home med, d/c due to elevated mag levels may be in setting of dehydration, will monitor DVT ppx: apixaban Dispo: d/c to Rehab in 1-2 days FULL CODE PCP: Panchito Anguiano Admission and Anticipated Discharge Date Admission Date: July 17, 2022 Subjective ff up for hyponatremia, weakness, pleural effusion, etc seen resting in bed, comfortable on room air states he feels fine overall irritable reports breathing has improved no chest pain, dyspnea, palpitations, dizziness no other new symptoms Review of Systems Review of Systems: all noted and negative except for above Physical Exam Physical Exam: General- oriented x 2, not in distress, speaks in sentences with no effort or accessory muscle use Eyes- anicteric Neck- no JVD Lungs- clear breath sounds bilaterally, no rales/wheezes Heart- normal rate, regular rhythm; no murmurs Abdomen- normal bowel sounds, nondistended, soft, nontender Extremities- no pretibial edema, no calf tenderness Neuro- alert, oriented x 2; no gross focal neurologic deficits Skin- warm & dry Results & Data Results & Data Vital Signs (Past 12 Hours) Vital Signs Temp Pulse Resp BP Pulse Ox O2 Del Method 07/22/22 10:31 Room Air 07/22/22 09:17 128/52 L 07/22/22 07:14 36.7 C 75 18 121/49 L 97 Room Air all noted and reviewed including below
[2022-07-22] MEDS: MELATONIN 3 MG TAB PO PRN (20:13)
[2022-07-22] MEDS: CLOPIDOGREL BISULFATE 75 MG TAB PO SCH (20:13)
[2022-07-23] MEDS: AMPICILLIN/SULBACTAM SOD 3,000 MG in 0.9 % SODIUM CHLORIDE 100 ML IV SCH ×2 (05:27→18:23)
[2022-07-23] MEDS: SODIUM CHLORIDE 1 GM TABLET PO SCH ×2 (08:31→20:12)
[2022-07-23] MEDS: carvediloL 3.125 MG TAB PO SCH ×2 (08:31→20:13)
[2022-07-23] MEDS: ZINC SULFATE 220 MG CAPSULE PO SCH (08:32)
[2022-07-23] MEDS: ROSUVASTATIN CALCIUM 5 MG TAB PO SCH (08:32)
[2022-07-23] MEDS: EZETIMIBE 10 MG TABLET PO SCH (08:32)
[2022-07-23] MEDS: CHOLECALCIFEROL 1,000 UNITS 25 MCG TAB PO SCH (08:33)
[2022-07-23] MEDS: ASCORBIC ACID 500 MG TAB PO SCH (08:34)
[2022-07-23] MEDS: TAMSULOSIN HCL 0.4 MG CAP PO SCH (08:34)
[2022-07-23] MEDS: BUMETANIDE 1 MG TAB PO SCH (08:34)
[2022-07-23] MEDS: FOLIC ACID 400 MCG TAB PO SCH (08:35)
[2022-07-23] MEDS: CYANOCOBALAMIN (B-12) 2,500 MCG TABLET SL SCH (08:35)
[2022-07-23] MEDS: LIDOCAINE 5% 1 PATCH TD SCH (08:36)
--- NOTE | 2022-07-23 08:59 | XRay Report ---
SINGLE VIEW CHEST CLINICAL HISTORY: Follow-up pneumothorax. FINDINGS: An AP, portable, upright chest radiograph is compared to study dated 07/22/2022 and correlat ed with chest CT dated 07/01/2022. Surgical clips are noted in the right lower neck. The examination is degraded by portable technique and apical lordotic positioning. The patient is status post midline s ternotomy. The heart is enlarged and noting atherosclerotic calcification of the thoracic aorta. Ther e is mild pulmonary vascular congestion which is most improved from yesterday. Chronic interstitial t hickening is similar to previous. A small to moderate right apical to basilar hydropneumothorax has n ot significantly changed. The trachea is midline. Consolidation is again seen at the right lung base. The left lung appears clear noting basilar atelectasis. No pneumothorax is seen on the left. The ske letal structures are osteopenic. The bony thorax is grossly intact. Arthritic change is noted in the shoulders. IMPRESSION: 1. Small to moderate right hydropneumothorax has not significantly changed from yesterday. The trache a is midline. 2. Cardiomegaly with pulmonary vascular congestion. 3. There is right basilar consolidation. ACT 112: Negative or not required by law. Electronically signed by: Paco Pardo M.D. 07/23/2022 8:57 AM
[2022-07-23 09:26] LABS: Basophils # (auto) 0.03 K/uL (0-0.2); Basophils % (auto) 0.3 %; Eosinophils # (auto) 0.31 K/uL (0-0.50); Eosinophils % (auto) 3.2 %; Hematocrit (blood only) 31.3 % (42.0-52.0); Hemoglobin 10.1 g/dl (14.0-18.0); Immature Granulocytes # (auto) 0.06 K/uL (0.01-0.20); Immature Granulocytes % (auto) 0.6 %; Lymphocytes # (auto) 0.53 K/uL (1.2-3.4); Lymphocytes % (auto) 5.5 %; Mean Corpuscular Hemoglobin 26.3 pg (25.0-34.0); Mean Corpuscular Hgb Conc 32.3 g/dL (32.0-36.0); Mean Corpuscular Volume 81.5 fL (80.0-100.0); Monocytes # (auto) 0.76 K/uL (0.11-0.59); Monocytes % (auto) 7.9 %; Neutrophils # (auto) 7.88 K/uL (1.40-6.50); Neutrophils % (auto) 82.5 %; Platelet Count 260 K/uL (130-400); RDW Coefficient of Variation 19.1 % (11.5-14.5); RDW Standard Deviation 56.7 fL (36.4-46.3); Red Blood Count 3.84 M/uL (4.70-6.10); White Blood Count 9.57 K/ul (4.8-10.8)
[2022-07-23 10:01] LABS: Calcium 8.8 mg/dl (8.6-10.3); Creatinine Clr Calc Pharmacy 24.3 ml/min; Est GFR (African American) 34.6 ml/min; Est GFR (Non-African American) 29.9 ml/min; Potassium 3.2 mmol/L (3.5-5.1)
--- NOTE | 2022-07-23 10:26 | Pulmonology Progress Note ---
Date of Service July 23, 2022 Assessment & Plan (1) Pneumothorax ex vacuo: (2) Pleural effusion: (3) Pulmonary hypertension: (4) CKD (chronic kidney disease): (5) CHF (congestive heart failure): Heart failure chronicity: acute Heart failure type: unspecified Qualified Code(s): I50.9 - Heart failure, unspecified Plan IMPRESSION: 87-year-old male with large RIGHT-sided pleural effusion with loculated component, likely representing a pneumothorax ex vacuo who is status post thoracentesis. RECOMMENDATIONS: 1. RIGHT-Sided Pleural Effusion/Pneumothorax Ex Vacuo - * Patient is s/p thoracentesis on 07/21 with drainage of 200 mL of pleural fluid. * Pleural cultures are negative to date and fluid appears transudative per lights criteria. * Chest x-ray this morning appears stable from priors with residual area of trapped lung. This will likely reaccumulate over time. * Patient poor candidate for any intrapleural interventions. * As long as he remains asymptomatic, no further interventions from pulmonary perspective at this point. * Continue management of the patient's underlying contributing conditions including volume status, CHF, and pulmonary hypertension. Thank you for allowing us to participate the care of this patient. Pulmonary medicine will sign off at this time. Please contact us directly with any further questions. Admission and Anticipated Discharge Date Admission Date: July 17, 2022 Subjective Patient was seen and evaluated at bedside. He denies any complaints at this time and reports that his breathing feels fine. Is doing well status post thoracentesis on 07/21. Review of Systems Review of Systems: A complete 6 point review of systems was reviewed with the patient with pertinent positives and negatives as per history of present illness. All else were negative. Physical Exam Physical Exam: VITAL SIGNS - Vital signs and nursing notes were reviewed. GENERAL - 87-year-old male appearing his stated age who is in no acute distress. Extremely hard of hearing. SKIN - No bleeding or drainage from catheter insertion site. NECK - Neck with FROM. LUNGS - Chest wall evaluation demonstrates normal chest wall A:P diameter. Auscultation reveals no wheezes, rales, or rhonchi. Decreased breath sounds to the RIGHT sided lung base. CARDIAC - RRR with S1/S2. No murmur, rubs, or gallops appreciated. Results & Data Results & Data Vital Signs (Past 12 Hours) Vital Signs Temp Pulse Resp BP Pulse Ox O2 Del Method 07/23/22 10:02 Room Air 07/23/22 07:21 36.4 C L 65 16 123/63 93 Room Air PG Care Time/CCT Total # of Minutes Spent Total Time Spent with Patient: Total time spent is greater than 50% in coordination of care (as documented) at patient's floor/unit and/or counseling patient: Coding Level of Care Code 09898 SUB INP/OBS CARE 2/35MIN Diagnoses Pneumothorax ex vacuo J93.83 Pleural effusion J90 Pulmonary hypertension I27.20 CKD (chronic kidney disease) N18.9 CHF (congestive heart failure) I50.9 Heart failure chronicity: acute Heart failure type: unspecified
--- NOTE | 2022-07-23 17:07 | Hospitalist Progress Note ---
Date of Service July 23, 2022 Assessment & Plan (1) Generalized muscle weakness: (2) Hyponatremia: (3) Hypokalemia: (4) Chronic diastolic (congestive) heart failure: (5) Coronary artery disease: Plan This is an 87-year-old male who has significant past medical history of CAD status post CABG in 1995, chronic diastolic and systolic heart failure, HTN, HLD, PAD, carotid artery disease status post endarterectomy, anemia of chronic disease, CKD stage IV who was admitted to hospital secondary to generalized weakness, poor p.o. intake and hyponatremia. Of significance patient was recently hospitalized secondary to COVID-19, generalized weakness and DILIP. He has baseline creatinine of 2.6. Intake has been poor since most recent discharge. Home physical therapy recommended the patient would benefit from penitentiary care which is still pending availability. In ED patient was hypotensive which improved with IV fluids. Patient hospitalized 07/01-07/08 secondary to generalized weakness, COVID-19 positive and DILIP Since discharge has had generalized poor p.o. intake and therefore he presented back to hospital secondary to generalized weakness and hypotension. Admission labs revealed sodium 128, BUN 112 and creatinine 2.35 SOB Pulmonary edema Decompensated heart failure Echo from 07/19 reveals LVEF 40 to 45%, severe pulmonary hypertension with PASP of 65 to 75 mmHg Worsened SOB yesterday with CXR showing moderate pleural effusion at right base with possible atelectasis/aspiration pneumonia More comfortable sitting upright on 2 L nasal cannula OxyMask, given 40 mg IV Bumex Discussed case with nephrology due to tenuous balance managing hyponatremia, CKD. Dr. Mendoza recommends readdressing goals of care with patient and family given medical complexity Patient evaluated by pulmonary service. Holding apixaban and patient agreeable to thoracentesis tomorrow by Dr. Arechiga Saturation at 96% on room air, less SOB per patient. BiPAP nightly as needed for shortness of breath. Started on Unasyn to cover for possible aspiration pneumonia, speech consulted (patient uncooperative with eval, speech to try again tomorrow). Aspiration precautions No additional diuretics given today as patient more clinically comfortable, sodium decreased to 127 and will undergo thoracentesis tomorrow. Reevaluate tomorrow (1) Generalized muscle weakness: (2) Hyponatremia: (3) Hypokalemia: (4) Chronic diastolic (congestive) heart failure: (5) Coronary artery disease: Plan per Kenna Bello's notes with addendum: (1) Generalized muscle weakness: (2) Hyponatremia: (3) Hypokalemia: (4) Chronic diastolic (congestive) heart failure: (5) Coronary artery disease: Plan This is an 87-year-old male who has significant past medical history of CAD status post CABG in 1995, chronic diastolic and systolic heart failure, HTN, HLD, PAD, carotid artery disease status post endarterectomy, anemia of chronic disease, CKD stage IV who was admitted to hospital secondary to generalized weakness, poor p.o. intake and hyponatremia. Of significance patient was recently hospitalized secondary to COVID-19, generalized weakness and DILIP. He has baseline creatinine of 2.6. Intake has been poor since most recent discharge. Home physical therapy recommended the patient would benefit from penitentiary care which is still pending availability. In ED patient was hypotensive which improved with IV fluids. Patient hospitalized 07/01-07/08 secondary to generalized weakness, COVID-19 positive and DILIP Since discharge has had generalized poor p.o. intake and therefore he presented back to hospital secondary to generalized weakness and hypotension. Admission labs revealed sodium 128, BUN 112 and creatinine 2.35 SOB Pulmonary edema Decompensated heart failure Echo from 07/19 reveals LVEF 40 to 45%, severe pulmonary hypertension with PASP of 65 to 75 mmHg Worsened SOB yesterday with CXR showing moderate pleural effusion at right base with possible atelectasis/aspiration pneumonia More comfortable sitting upright on 2 L nasal cannula OxyMask, given 40 mg IV Bumex Discussed case with nephrology due to tenuous balance managing hyponatremia, CKD. Dr. Mendoza recommends readdressing goals of care with patient and family given medical complexity Patient evaluated by pulmonary service.Holding apixaban and patient agreeable to thoracentesis tomorrow by Dr. Arechiga Saturation at 96% on room air, less SOB per patient. BiPAP nightly as needed for shortness of breath. Started on Unasyn to cover for possible aspiration pneumonia, speech consulted (patient uncooperative with eval, speech to try again tomorrow). Aspiration precautions No additional diuretics given today as patient more clinically comfortable, sodium decreased to 127 and will undergo thoracentesis tomorrow. 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 Recheck Na in AM. If no improvement, may need to consider salt tablets and low dose Bumex therapy 07/21 Na 127 Nephro recommendations noted NaCL 1g BID resume Bumex repeat labs in AM 07/22 Na 130 continue salt tab BID and Bumex repeat lab tomorrow, then 2-3 days post discharge 07/23 Na 133 crea 1.9 continue salt tab BID and Bumex repeat lab tomorrow, then 2-3 days post discharge Hypokalemia PO K ordered Anemia of chronic disease H&H stable at 10.7 and 33.3 CAD with history of CABG HTN Continue Coreg, hydralazine, Plavix, statin and Zetia elevated trop likely in setting of ckd as well as initial hypotension Hypermagnesemia mag oxide - home med, d/c due to elevated mag levels may be in setting of dehydration, will monitor DVT ppx: apixaban Dispo: d/c to Rehab tomorrow FULL CODE PCP: Panchito Anguiano Admission and Anticipated Discharge Date Admission Date: July 17, 2022 Subjective ff up for pleural effusion, sp thoracetensis, etc seen resting in bed, sitting up comfortable, not in distress very irritable states he is having sore throat and mouth pain having difficulty swallowing due to pain states breathing is fine no chest pain, dyspnea, palpitations, dizziness no cough, fever/chills no other symptoms Review of Systems Review of Systems: all noted and negative except for above Physical Exam Physical Exam: General- oriented x 2, not in distress, speaks in sentences with no effort or accessory muscle use Oral- (+) thrush under the tongue Eyes- anicteric Neck- no JVD Lungs- clear breath sounds bilaterally, no rales/wheezes Heart- normal rate, regular rhythm; no murmurs Abdomen- normal bowel sounds, nondistended, soft, nontender Extremities- no pretibial edema, no calf tenderness Neuro- alert, oriented x 3; no gross focal neurologic deficits Skin- warm & dry Results & Data Results & Data Vital Signs (Past 12 Hours) Vital Signs Temp Pulse Resp BP Pulse Ox O2 Del Method 07/23/22 15:57 36.4 C L 67 16 137/65 97 Room Air 07/23/22 07:20 Room Air 07/23/22 07:21 36.4 C L 65 16 123/63 93 Room Air all noted and reviewed including below
[2022-07-23] MEDS ORDERED: POTASSIUM CHLORIDE 20 MEQ/15 ML UDC PO STA (17:13)
[2022-07-23] MEDS: NYSTATIN SUSP 500,000 U/5 ML UDC PO SCH ×2 (17:27→20:12)
[2022-07-23] MEDS: CLOPIDOGREL BISULFATE 75 MG TAB PO SCH (20:13)
[2022-07-23] MEDS: MELATONIN 3 MG TAB PO PRN (20:19)
[2022-07-23] MEDS: ACETAMINOPHEN 325 MG TAB PO PRN (20:19)
[2022-07-24] MEDS: AMPICILLIN/SULBACTAM SOD 3,000 MG in 0.9 % SODIUM CHLORIDE 100 ML IV SCH (06:15)
--- NOTE | 2022-07-24 07:44 | XRay Report ---
XR chest 1V portable HISTORY: Follow up pneumothorax. COMPARISON: Chest 07/23/2022. FINDINGS: No change in the small right hydropneumothorax. The heart remains enlarged. Right basilar d ensities persist. There are poststernotomy changes. There is mild central pulmonary vascular congesti on without overt edema. Calcifications within the aortic knob again noted. IMPRESSION: 1. No change in the small right hydropneumothorax. 2. Cardiomegaly and mild congestive change persists. 3. Right basilar densities are again noted. ACT 112: Negative or not required by law. Electronically signed by: Singh Rangel M.D. 07/24/2022 7:43 AM
[2022-07-24 08:20] LABS: BUN Creatinine Ratio 30.9 (10-20); Calcium 8.6 mg/dl (8.6-10.3); Creatinine Clr Calc Pharmacy 24.6 ml/min; Est GFR (African American) 35.3 ml/min; Est GFR (Non-African American) 30.5 ml/min; Potassium 3.4 mmol/L (3.5-5.1)
[2022-07-24] MEDS: NYSTATIN SUSP 500,000 U/5 ML UDC PO SCH (08:41)
[2022-07-24] MEDS: LIDOCAINE 5% 1 PATCH TD SCH (08:42)
[2022-07-24] MEDS: SODIUM CHLORIDE 1 GM TABLET PO SCH (08:43)
[2022-07-24] MEDS: CYANOCOBALAMIN (B-12) 2,500 MCG TABLET SL SCH (08:43)
[2022-07-24] MEDS: ROSUVASTATIN CALCIUM 5 MG TAB PO SCH (08:44)
[2022-07-24] MEDS: BUMETANIDE 1 MG TAB PO SCH (08:44)
[2022-07-24] MEDS: ASCORBIC ACID 500 MG TAB PO SCH (08:44)
[2022-07-24] MEDS: carvediloL 3.125 MG TAB PO SCH (08:44)
[2022-07-24] MEDS: FOLIC ACID 400 MCG TAB PO SCH (08:45)
[2022-07-24] MEDS: ZINC SULFATE 220 MG CAPSULE PO SCH (08:45)
[2022-07-24] MEDS: TAMSULOSIN HCL 0.4 MG CAP PO SCH (08:45)
[2022-07-24] MEDS: CHOLECALCIFEROL 1,000 UNITS 25 MCG TAB PO SCH (08:45)
[2022-07-24] MEDS: EZETIMIBE 10 MG TABLET PO SCH (08:45)
[2022-07-24] MEDS ORDERED: POTASSIUM CHLORIDE 20 MEQ/15 ML UDC PO STA (11:41)
--- NOTE | 2022-07-24 11:49 | Hospitalist Progress Note ---
Date of Service July 24, 2022 Assessment & Plan (1) Generalized muscle weakness: (2) Hyponatremia: (3) Hypokalemia: (4) Chronic diastolic (congestive) heart failure: (5) Coronary artery disease: Plan per admitting [facility] notes with addendum: This is an 87-year-old male who has significant past medical history of CAD status post CABG in 1995, chronic diastolic and systolic heart failure, HTN, HLD, PAD, carotid artery disease status post endarterectomy, anemia of chronic disease, CKD stage IV who was admitted to hospital secondary to generalized weakness, poor p.o. intake and hyponatremia. Of significance patient was recently hospitalized secondary to COVID-19, generalized weakness and DILIP. He has baseline creatinine of 2.6. Intake has been poor since most recent discharge. Home physical therapy recommended the patient would benefit from shelter care which is still pending availability. In ED patient was hypotensive which improved with IV fluids. Patient hospitalized 07/01-07/08 secondary to generalized weakness, COVID-19 positive and DILIP Since discharge has had generalized poor p.o. intake and therefore he presented back to hospital secondary to generalized weakness and hypotension. Admission labs revealed sodium 128, BUN 112 and creatinine 2.35 SOB Pulmonary edema Decompensated heart failure Right Pleural Effusion Echo from 07/19 reveals LVEF 40 to 45%, severe pulmonary hypertension with PASP of 65 to 75 mmHg CXR showing moderate pleural effusion at right base with possible atelectasis/aspiration pneumonia 07/21 s/p thoracentesis 2 L pleural studies: transudative pathology: pending (+) pneumothorax post procedure now stable on room air o2 sat 97% breathing is better as per patient, dyspnea resolved repeat CXR: stable no further intervention per Pulm on Unasyn IV for possible aspiration component discharge on: Augmentin x 2 more days (+) Oral thrush - Nystatin ordered Generalized weakness Hyponatremia CKD stage IV Head CT -- 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, no acute intracranial abnormality CT a/p -- diverticulosis, small R pleural effusion, cholelithiasis, 5mm nonobstructing R lower pole renal calculus Nephrology consulted Na 127 Nephro recommendations noted NaCL 1g BID resumed Bumex Na 135 crea 1.9 K 3.4 continue salt tab BID and Bumex repeat basic metabolic panel in 2 days Hypokalemia PO K ordered Anemia of chronic disease H&H stable at 10.7 and 33.3 CAD with history of CABG HTN Continue Coreg, hydralazine, Plavix, statin and Zetia elevated trop likely in setting of ckd as well as initial hypotension Hypermagnesemia mag oxide - home med, d/c due to elevated mag levels may be in setting of dehydration, will monitor DVT ppx: apixaban Dispo: d/c to Rehab FULL CODE PCP: Panchito Anguiano Admission and Anticipated Discharge Date Admission Date: July 17, 2022 Subjective ff up for weakness, pleural effusion, etc seen resting in bed, comfortable states he feels fine overall breathing is fine, no shortness of breath, cough no chest pain, dyspnea, palpitations, dizziness states swallowing is also improving no other symptoms patient ok with transfer to Rehab today Review of Systems Review of Systems: all noted and negative except for above Physical Exam Physical Exam: General- oriented x 2, not in distress, speaks in sentences with no effort or accessory muscle use Eyes- anicteric Neck- no JVD Lungs- clear BS bilaterally, no rales/wheezes Heart- normal rate, regular rhythm; no murmurs Abdomen- normal bowel sounds, nondistended, soft, nontender Extremities- no pretibial edema, no calf tenderness Feet- BL scaly rash- appears to be fungal etiology Neuro- alert, oriented x 2; no gross focal neurologic deficits Skin- warm & dry Results & Data Results & Data Vital Signs (Past 12 Hours) Vital Signs Temp Pulse Resp BP Pulse Ox O2 Del Method 07/24/22 08:56 Room Air 07/24/22 07:33 36.4 C L 60 16 122/54 L 93 Room Air all noted and reviewed including below
--- NOTE | 2022-07-24 12:11 | Discharge Summary ---
Discharge Summary Date of Service July 24, 2022 Notes For Next Care Provider SALT TAB BID AUGMENTIN 500MG BID X 2 DAYS NYSTATIN ORAL X 9 DAYS TERBINAFINE TOPICAL X 10 DAYS Medication Changes From Visit Repeat BMP in 2 days. Monitor sodium, potassium, creatinine closely. Admission HPI Per Admitting Provider HISTORY OF PRESENT ILLNESS: This is an 87-year-old male with past medical history significant for CAD, status post CABG in 1995, chronic diastolic and systolic heart failure, hypertension, hyperlipidemia, peripheral artery disease, carotid artery disease, status post endarterectomy, anemia of chronic kidney disease and chronic kidney disease stage III, who was recently in the hospital with weakness, COVID, DILIP, seen by Nephrology Now , baseline creatinine seems 2.6 as per nephrology. Presents because of weakness and dehydration. The patient is very hard of hearing. No family in the room HAve to write on the paper. Denies any chest pain, denies any headache or abdominal pain, no nausea. His cough is improved. No fever, no diarrhea or constipation. Normal bladder movements. No swelling in the legs. He says he ambulates okay, sle eping okay. He is hemodynamically stable. Seems poor oral intake since discharge from here. Home physical therapy recommended the patient would benefit from snf care, which is still pending availability. That is the reason, the patient was brought into the hospital and initially his blood pressure was low 70_/50, improved upon arriving into the room as per the ER notes and improved with gentle IV fluids. There was questionable black stools, but his Hemoccult was negative in the ER. His COVID rapid test is negative. Last admission, COVID positive on 07/01/22. Admission Exam Per Admitting Provider GENERAL: The patient is alert and awake. Very hard of hearing, seems comfortable. VITAL SIGNS: Temperature 37.2, pulse 61, respiratory rate 22, blood pressure 131/68, oxygen 97% on room air. HEENT: Pupils equal, round and reactive to light. Oral mucosa moist. NECK: No JVD, no neck masses. CARDIOVASCULAR: S1 and S2 heard. Regular rate and rhythm. No murmur, no gallop. RESPIRATORY SYSTEM: Normal AP diameter. No accessory muscle use. No wheezing or crackles. ABDOMEN: Soft, bowel sounds present, nontender, no distention. CENTRAL NERVOUS SYSTEM: Alert and awake. Obeys simple commands. No facial droop. Speech is clear. Very hard of hearing. Moves extremities. EXTREMITIES: Chronic skin changes seen. No edema seen. Principal Dx & Hospital Course #1 = Principal Diagnosis (1) Generalized muscle weakness: (2) Hyponatremia: (3) Hypokalemia: (4) Chronic diastolic (congestive) heart failure: (5) Coronary artery disease: Plan per admitting [facility] notes with addendum: This is an 87-year-old male who has significant past medical history of CAD status post CABG in 1995, chronic diastolic and systolic heart failure, HTN, HLD, PAD, carotid artery disease status post endarterectomy, anemia of chronic disease, CKD stage IV who was admitted to hospital secondary to generalized weakness, poor p.o. intake and hyponatremia. Of significance patient was recently hospitalized secondary to COVID-19, generalized weakness and DILIP. He has baseline creatinine of 2.6. Intake has been poor since most recent discharge. Home physical therapy recommended the patient would benefit from snf care which is still pending availability. In ED patient was hypotensive which improved with IV fluids. Patient hospitalized 07/01-07/08 secondary to generalized weakness, COVID-19 po sitive and DILIP Since discharge has had generalized poor p.o. intake and therefore he presented back to hospital secondary to generalized weakness and hypotension. Admission labs revealed sodium 128, BUN 112 and creatinine 2.35 SOB Pulmonary edema Decompensated heart failure Right Pleural Effusion Echo from 07/19 reveals LVEF 40 to 45%, severe pulmonary hypertension with PASP of 65 to 75 mmHg CXR showing moderate pleural effusion at right base with possible atelectasis/aspiration pneumonia 07/21: s/p thoracentesis 2 L pleural studies: transudative pathology: pending (+) pneumothorax post procedure now stable on room air o2 sat 97% breathing is better as per patient, dyspnea resolved repeat CXR: stable; No change in the small right hydropneumothorax. 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, no acute intracranial abnormality CT a/p -- diverticulosis, small R pleural effusion, cholelithiasis, 5mm nonobstructing R lower pole renal calculus Nephrology consulted Na 127 Nephro recommendations noted NaCL 1g BID resumed Bumex Na 135 crea 1.9 K 3.4 continue salt tab BID and Bumex repeat basic metabolic panel in 2 days Hypokalemia PO K ordered Anemia of chronic disease H&H stable at 10.7 and 33.3 CAD with history of CABG HTN Continue Coreg, hydralazine, Plavix, statin and Zetia elevated trop likely in setting of ckd as well as initial hypotension Hypermagnesemia mag oxide - home med, d/c due to elevated mag levels may be in setting of dehydration, will monitor DVT ppx: apixaban Dispo: d/c to Rehab FULL CODE PCP: Panchito Anguiano Discharge Exam General- oriented x 2, not in distress, speaks in sentences with no effort or accessory muscle use Eyes- anicteric Neck- no JVD Lungs- clear BS bilaterally, no rales/wheezes Heart- normal rate, regular rhythm; no murmurs Abdomen- normal bowel sounds, nondistended, soft, nontender Extremities- no pretibial edema, no calf tenderness Feet- BL scaly rash- appears to be fungal etiology Neuro- alert, oriented x 2; no gross focal neurologic deficits Skin- warm & dry Updated Medication List Medication Instructions Recorded Confirmed Type nitroglycerin 0.4 mg sublingual 0.4 mg sublingual Q5M PRN chest 11/24/20 07/16/22 Rx tablet (Nitrostat) pain #1 tab triamcinolone acetonide 0.1 % 1 applic topical TID PRN itching 11/24/20 07/16/22 Rx topical cream #15 grams zinc 50 mg tablet 50 mg PO QAM 12/06/20 07/16/22 History folic acid 400 mcg tablet 400 mcg PO QAM #30 tabs 08/31/21 07/16/22 Rx menthol 0.44 %-zinc oxide 20.6 % 1 applic topical TID PRN skin 09/05/21 07/16/22 Rx topical ointment (Calmoseptine) irritation #113 grams cholecalciferol (vitamin D3) 50 50 mcg PO QAM 09/25/21 07/16/22 History mcg (2,000 unit) tablet (Vitamin D3) darbepoetin lizzy in polysorbat 60 60 mcg subcut .COMPLEX #1 mL 10/03/21 07/16/22 Rx mcg/mL in polysorbate injection (Aranesp) omega-3 fatty acids 1,000 mg 2,000 mg PO AMPM 11/28/21 07/16/22 History capsule acetaminophen 500 mg tablet 1,000 mg PO Q6H PRN Fever Or Pain 07/16/22 07/16/22 History (Tylenol Extra Strength) ascorbic acid (vitamin C) 1,000 mg 1 g PO QAM 07/16/22 07/16/22 History tablet bumetanide 1 mg tablet 1 mg PO QAM 07/16/22 07/16/22 History carvedilol 3.125 mg tablet 3.125 mg PO AMPM 07/16/22 07/16/22 History clopidogrel 75 mg tablet 75 mg PO QPM 07/16/22 07/16/22 History cyanocobalamin (vitamin B-12) 2,500 mcg sublingual QAM 07/16/22 07/16/22 History 2,500 mcg sublingual tablet (Vitamin B-12) dutasteride 0.5 mg capsule 0.5 mg PO QAM 07/16/22 07/16/22 History ezetimibe 10 mg tablet 10 mg PO QAM 07/16/22 07/16/22 History ferric citrate 210 mg iron tablet 210 mg PO AMPM 07/16/22 07/16/22 History (Auryxia) hydralazine 25 mg tablet 25 mg PO AMPM 07/16/22 07/16/22 History magnesium oxide 400 mg PO QAM 07/16/22 07/16/22 History metolazone 5 mg tablet 5 mg PO 2XWK 07/16/22 07/16/22 History rosuvastatin 5 mg tablet 5 mg PO QAM 07/16/22 07/16/22 History spironolactone 25 mg tablet 12.5 mg PO QAM 07/16/22 07/16/22 History tamsulosin 0.4 mg capsule 0.8 mg PO QAM 07/16/22 07/16/22 History amoxicillin 500 mg-potassium 1 tab PO BID #4 tabs 07/24/22 Rx clavulanate 125 mg tablet (Augmentin) apixaban 2.5 mg tablet (Eliquis) 2.5 mg PO BID 30 days #60 tabs 07/24/22 Rx nystatin 100,000 unit/mL oral 5 ml PO QID 9 days #180 mL 07/24/22 Rx suspension sodium chloride 1,000 mg soluble 1 g PO BID 30 days #60 tabs 07/24/22 Rx tablet terbinafine HCl 1 % topical cream 1 applic EXT BID BILATERAL FEET 10 07/24/22 Rx days #30 grams Hospital Stay Data Consultations 07/16/22 21:18 ED Decision to Admit Stat 07/17/22 08:00 Consult Nephrology Routine 07/19/22 15:55 Consult Pulmonology Routine Diagnostic Imagining Performed 07/16/22 19:06 CT abd pelvis wo con Stat TECHNIQUE: Axial computed tomography images of the abdomen and pelvis without intravenous contrast. Automated exposure control was utilized for the study. A dose lowering technique was utilized adhering to the principles of ALARA. COMPARISON: No relevant prior studies available. FINDINGS: Lung bases: Unremarkable. No mass. No consolidation. Pleural space: Small right pleural effusion. ABDOMEN: Liver: Unremarkable. Gallbladder and bile ducts: Cholelithiasis. No ductal dilation. Pancreas: Unremarkable. No ductal dilation. Spleen: Unremarkable. No splenomegaly. Adrenals: Unremarkable. No mass. Kidneys and ureters: Nonobstructing 5 mm right lower pole renal calculus. Stomach and bowel: Diverticulosis, without acute diverticulitis. No small bowel obstruction. No free intraperitoneal air. PELVIS: Appendix: No findings to suggest acute appendicitis. Bladder: Unremarkable. No stones. Reproductive: Unremarkable as visualized. ABDOMEN and PELVIS: Intraperitoneal space: Unremarkable. No free air. No significant fluid collection. Bones/joints: Degenerative changes of the spine. No acute fracture. No dislocation. Soft tissues: Bilateral gynecomastia. Vasculature: Atherosclerotic changes of the aorta. Bilateral iliac stent grafts. No abdominal aortic aneurysm. Lymph nodes: Unremarkable. No enlarged lymph nodes. IMPRESSION: 1. Diverticulosis, without acute diverticulitis. No small bowel obstruction. No free intraperitoneal air. 2. Small right pleural effusion. 3. Cholelithiasis. 4. Nonobstructing 5 mm right lower pole renal calculus. Electronically signed by: Tito Aguirre MD 07/16/22 20:28 PM 07/16/22 19:07 CT head/brain wo con Stat COMPARISON: No relevant prior studies available. FINDINGS: No acute intracranial hemorrhage. No midline shift or mass effect. 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 Age-related cerebral volume loss. Periventricular and subcortical white matter hypoattenuation, consistent with chronic microangiopathy. The visualized orbits appear grossly unremarkable. The calvarium is intact. The visualized paranasal sinuses and mastoid air cells are grossly clear. IMPRESSION: No acute intracranial hemorrhage, midline shift, or mass effect. 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 Electronically signed by: Tito Aguirre MD 07/16/22 20:14 PM 07/19/22 16:17 US point of care ultrasound Urgent 07/20/22 08:10 US point of care ultrasound Urgent 07/21/22 10:08 US point of care ultrasound Urgent XR chest 1V portable HISTORY: Follow up pneumothorax. COMPARISON: Chest 07/23/2022. FINDINGS: No change in the small right hydropneumothorax. The heart remains enlarged. Right basilar densities persist. There are poststernotomy changes. There is mild central pulmonary vascular congestion without overt edema. Calcifications within the aortic knob again noted. IMPRESSION: 1. No change in the small right hydropneumothorax. 2. Cardiomegaly and mild congestive change persists. 3. Right basilar densities are again noted. ACT 112: Negative or not required by law. Electronically signed by: Singh Rangel M.D. 07/24/2022 7:43 AM Pending Results Patient Have Any Pending Studies at Discharge: Yes Discharge Instructions Given to Patient (Per Discharging Provider) PLEASE REFER TO YOUR NEW MEDICATION LIST AND FOLLOW INSTRUCTIONS CAREFULLY. YOUR NEW MEDICATIONS INCLUDE: SALT TAB BID AUGMENTIN 500MG BID X 2 DAYS NYSTATIN ORAL X 9 DAYS TERBINAFINE TOPICAL X 10 DAYS D/C METOLAZONE REPEAT BASIC METABOLIC PROFILE IN 2 DAYS. MONITOR SODIUM AND POTASSIUM CLOSELY. PLEASE CALL YOUR PRIMARY CARE PHYSICIAN OR RETURN TO THE ER IF WITH WORSENING OF SYMPTOMS, INCLUDING WEAKNESS, SHORTNESS OF BREATH, CHEST PAIN, FEVER/CHILLS, COUGH, ETC FOLLOW UP WITH PRIMARY CARE PHYSICIAN IN 1 WEEK. Total Time Total Time Spent Total Time Spent (In Minutes): > 30 MINUTES
[2022-07-24] MEDS ORDERED: TERBINAFINE CR 30 GM TUBE EXT SCH (21:00)
[2022-07-25] MEDS ORDERED: POTASSIUM CHLORIDE CRTAB 20 MEQ TABCR PO SCH (09:00)
== END 2022-07-24 15:34 | DRG 640 ==
LOC: ED 18:09 → 3N 07-17 01:03 → SUATTDRO 07-17 01:03 → 3N 07-17 01:42